=== PATIENT | male | born 1940 | race Caucasian/White ===

== ENCOUNTER 2017-10-08 07:05 | Inpatient (IN) | payer MEDICARE, SELFPAY ==
[2017-10-08] VITALS (15 sets, daily range): BP systolic 129–162; BP diastolic 60–74; PULSE 80–98; RESP 12–26; TEMP 36.7–37.8; O2SAT 88–94; BMI 23.3; BMI 23.4
--- NOTE | 2017-10-08 07:21 | RAD_ITS ---
STUDY: X-RAY CHEST REASON FOR EXAM: Male, 77 years old. Cough. History of pneumonia. TECHNIQUE: PA and lateral views of the chest. COMPARISON: None. FINDINGS: There is evidence of diffuse increased interstitial markings in both lungs with areas of confluence in the right upper lobe as well as in both lower lobes. There is blunting of the costophrenic angles posteriorly slightly more prominent on the left side. Normal size heart. Normal mediastinum and amee. Normal visualized pulmonary arteries. There is atherosclerotic tortuosity of the aortic arch and descending thoracic aorta. There is demineralization of the osseous structures. Normal visualized ribs, clavicles, and shoulders. There is no demonstrated abnormality of the visualized soft tissue structures of the upper abdomen. RAD/Chest PA and Lateral IMPRESSION: Diffuse increased interstitial markings with areas of confluence as described. This may represent chronic interstitial scarring with possible superimposed infiltrate in the right upper and right lower lobes. Follow-up is recommended. Electronically Signed: Pepe Bunn MD at 8:11 EDT Tel [phone], Service support ,
[2017-10-08] MEDS: Ipratropium/Albuterol Sulfate 3 ML AMPUL.NEB INHALATION ×4 (07:31→22:18)
[2017-10-08 07:55] LABS: Absolute Lymphocyte Count 0.95 X10^3/ul (0.83-4.51); Basophil# 0.01 X10^3/uL; Basophil% 0.1 % (0-1); Eosinophil# 0.11 X10^3/uL; Eosinophils% 0.7 % (0-5); Hematocrit 40.3 % (40-54); Hemoglobin 13.1 g/dl (13.0-16.5); Lymphocyte # 0.95 X10^3/ul (4.0); Lymphocyte % 6.3 % (19-41); Mean Corp Hgb Conc 32.5 g/gl (32-36); Mean Corpuscular Hgb 30.3 pg (27.0-32.0); Mean Corpuscular Volume 93.1 fL (80-94); Mean Platelet Vol. 10.2 fl (6.2-12.0); Monocyte# 0.83 X10^3/uL; Monocyte% 5.5 % (0-10); Neutrophil # 13.04 X10^3/uL (2.7-7.7); Neutrophil % 87.1 % (47-70); Platelet Count 325 K/mm3 (150-450); RBC Distribution Width CV 12.4 % (11.6-14.6); RBC Distribution Width SD 41.9 fl (35.1-43.9); Red Blood Count 4.33 M/mm3 (4.6-6.2)
[2017-10-08 08:01] LABS: POSITIVE COUNT NO; POSITIVE DIFFERENTIAL NO; POSITIVE MORPHOLOGY NO
[2017-10-08 08:09] LABS: Anion Gap 10 (5-15); BUN 11 mg/dL (7-18); BUN/Creat Ratio 15.9 RATIO (10-20); Calcium,Total 8.5 mg/dL (8.5-10.1); Chloride 107 mmol/L (98-107); Creatinine, Serum 0.69 mg/dL (0.70-1.30); EST Glomerular Filtration Rate 117 mL/min (>60); Est Glom Filt Rate - Afr Amer 142 mL/min (>60); Estimated Creatinine Clearance 54.94 ml/min; Glucose 107 mg/dL (74-106); Potassium 3.9 mmol/L (3.5-5.1); Sodium Level 140 mmol/L (136-145)
[2017-10-08 08:29] LABS: Lactic Acid 1.1 mmol/L (0.4-2.0)
--- NOTE | 2017-10-08 08:31 | ED.DCSUM_ITS ---
- ER Visit Summary Date of Service: 10/08/17 Chief Complaint: Cough History of Present Illness: The patient is a 77 M who does not have a primary care physician. He reports he has a cough that began 3 weeks ago. This is nonproductive. He reports he had a chest x-ray 3 days ago at urgent care that showed pneumonia and he was placed on doxycycline. Reports that he is not improving. Patient reports that he has had a temperature of 102? and chills. He has severe shortness of breath is worsened with walking. Is unchanged with laying flat. States that he has not been wheezing and has had minimal relief with an inhaler. He quit smoking in 1996. He has never been on home O2. Physical Examination: Vitals: 9 9.6, 162/74, 92, 17, 88% on room air which is hypoxic. General: Well-nourished and well-developed. Head: Normocephalic atraumatic. Neck: Supple, no lymphadenopathy. No JVD. Nontender. Cardiovascular: Regular rate and rhythm. No murmurs. Respiratory: No respiratory distress. Clear to auscultation bilaterally. Abdominal: Soft, nontender, nondistended, normal bowel sounds. No guarding, rebound, or peritoneal signs. Back: Nontender. Extremities: Nontender, no edema. Skin: Normal color, no rash. Neurologic: Alert and oriented ?3. Cranial nerves II through XII are intact. Normal strength and sensation. Psych: Normal affect. Test Results: Chest x-ray shows diffuse interstitial markings that are increased with areas of confluence. Question the possibility of chronic interstitial scarring with possible superimposed right upper and lower lobe infiltrates. CBC is marked for a white count of 15. Chem-7 is more for creatinine 0.6 and glucose 107. Lactic acid is 1.1. Emergency Department Course and Treatment: Patient was treated with albuterol and Atrovent aerosols to see if this helped with aeration and his pulse ox. It did not. He was given a dose of Solu-Medrol and Levaquin IV. Treatment Plan: Patient will be discussed with the hospitalist and admitted for further evaluation and treatment. Disposition: Admitted in improved condition. Impression: Pneumonia, community-acquired. 2. Hypoxia. This note was generated with [employer] software. It may contain incorrect words, spelling, and punctuation that were not noted in review of the chart prior to signing ED Disposition - Plan for ED Patient: Chief Complaint: Shortness of Breath Referrals: Care Physician,No Primary [Primary Care Provider] -
[2017-10-08] MEDS: levoFLOXacin IV 750 MG/150 ML BAG 100 MG IV (09:14)
[2017-10-08] MEDS: Heparin Injection 5,000 UNITS/ML Syringe 5000 UNITS SC ×2 (14:50→21:30)
[2017-10-08] MEDS: 0.9% NaCl Peripheral Flush Adult/Peds IV ×2 (14:50→21:29)
--- NOTE | 2017-10-08 16:58 | CT_ITS ---
STUDY: CTA CHEST REASON FOR EXAM: Male, 77 years old. Cough. Short of breath. RADIATION DOSAGE (If Supplied By Facility): CTDIvol = ( 8.66 ) mGy, DLP = ( 233.45 ) mGycm TECHNIQUE: The examination was performed with the intravenous administration of 75ml ml of Isovue 370 contrast material. Post-processing of the angiographic images was performed, with multiplanar reformation and 3D reconstruction. Individualized dose optimization techniques were used for this CT. COMPARISON: None. FINDINGS: Normal enhancement of the main pulmonary artery and right and left pulmonary arteries. Normal enhancement of the bilateral peripheral pulmonary arteries. There is no demonstrated pulmonary embolism. Normal thoracic aorta and visualized great vessels. There is no demonstrated aortic dissection. Normal heart and pericardium. Normal mediastinum. Normal hilar regions. Normal visualized trachea and bronchi. The lungs are well expanded. There is COPD. There are moderately increased diffuse interstitial parenchymal markings. Findings most prominent in the upper lobes and consistent with fibrosis. There are scattered areas of subsegmental atelectasis and more prominent atelectasis in both lower lobes. There are bilateral small pleural effusions. Normal pleura. Normal chest wall structures. Normal osseous structures. Normal visualized upper abdomen. CT/CTA Chest W/WO Contrast IMPRESSION: Normal CTA chest examination, without a demonstrated pulmonary embolism or arterial dissection. COPD with fibrosis, small pleural effusions and atelectasis in both lower lobes. Electronically Signed: Shahram Patel MD at 22:21 EDT , Service support ,
--- NOTE | 2017-10-08 20:34 | PCM.HP.STD ---
Problem List (1) Pneumonia Status: Acute Qualifiers: Pneumonia type: due to unspecified organism Laterality: bilateral History of Present Illness Date of Admission: 10/08/17 Chief Complaint: Fever, cough. Patient is a 77 years old female who was admitted on 10/08/17 for fever and persisting cough for 3 weeks. He had fever on and off for past 3 weeks as well. Cough is mostly dry with minimal sputum production. He has no previous history of lung disease. He is a former smoker, but had quit smoking in 1996, after about 30 pack-year of history. His father had COPD, but no other family member had any issues. He denied of any chest pain, has mild dyspnea, no night sweats or chills, and no change in appetite or weight loss. He denied of any peripheral edema, and has no symptoms of orthopnea. He has no other medical problems, taking no medications. Past Medical History Allergies No Known Allergies Allergy (Verified 10/08/17 07:06) Home Medications: Ambulatory Orders Medication Instructions Recorded Albuterol IH (ProAir) [Proair Hfa] 2 puff INHALATION Q6H PRN PRN 10/08/17 Doxycycline Hyclate [Doxycycline 100 mg PO BID 10/08/17 Hyclate] Surgical History: no surgical history Smoking Status: Former smoker Tobacco Use: Cigarettes - Quit smoking in 1996. - *Family History Paternal History Items: COPD - Father. Review of Systems Comment: ROS: In general: Patient has been in good health until recently, denied of any constitutional symptoms, such as weight loss, or gain, fever, chills, or night sweats. Patient denied of any profound fatigue. HEENT: Unremarkable. Patient denied of any dizziness, chronic headache, blurred vision, double vision, dry mouth, or nasal congestion. CV/respiratory: See HPI. He has no peripheral edema, hemoptysis, palpitations, dizziness, or chest pain. GI: Patient denied any abdominal pain, nausea, vomiting, diarrhea, constipation, melena, or hematochezia. : Patient denied any significant urinary symptoms. Neurology: Unremarkable. There is no history of seizure as an adult. Psychological: Unremarkable. ?. Endocrine: Unremarkable. Musculoskeletal: Unremarkable. VTE Information - Inpt Only VTE Present on Admission: No VTE Mechan Device Prophylaxis: Knee High ANEL Hose VTE Pharm Prophylaxis ordered?: Yes Patient Problems: Active and Suspected Problems Pneumonia (Acute) Subjective: In general, patient is a well-nourished and developed adult. HEENT: Head is atraumatic, and normocephalic. Pupils are equal, round, and reactive to light and accommodations. Neck is supple. There is no lymphadenopathy, or thyromegaly. Oral mucosa is pink, and moist. There are no lesions. Heart: Auscultation is normal with regular rhythm and rate. There is no extra heart sounds, or murmurs. S1 and S2 are present. Point of maximal impulse is not displaced. Lungs: Diffuse crackles at mid to lower lung juan bilaterally. Diminished breath sounds in general. Abdomen: Abdominal wall is non-tender, and non-distended. There is no palpable mass or organomegaly. Normoactive bowel sounds are present. Extremities: There is no cyanosis or clubbing. Peripheral pulses are palpable. There is no edema. Skin: There are no any skin discoloration or lesions. Neurological: CN II - XII are intact. Sensory and motor functions are grossly normal with no obvious deficit. Cerebellar functions are within normal range. Gait was not tested. - Physical Exam Vital Signs Temp Pulse Resp BP Pulse Ox 99.1 F 80 12 137/69 H 92 10/08/17 14:40 10/08/17 19:38 10/08/17 19:38 10/08/17 14:40 10/08/17 14:52 Oxygen Flow Rate (L/min) 4 Oxygen Delivery Method Nasal Cannula Weight: 144 lb 15.968 oz Body Mass Index (BMI) 23.3 Laboratory Results - last 24 hr 10/08/17 10/08/17 10/08/17 07:44 07:44 07:44 WBC 15.0 H RBC 4.33 L Hgb 13.1 Hct 40.3 MCV 93.1 MCH 30.3 MCHC 32.5 RDW 12.4 RDW Differential 41.9 Plt Count 325 MPV 10.2 Immature Gran % (Auto) 0.300 Neut % (Auto) 87.1 H Lymph % (Auto) 6.3 L [place] % (Auto) 5.5 Eos % (Auto) 0.7 Baso % (Auto) 0.1 Absolute Neuts (auto) 13.0 H Absolute Lymphs (auto) 0.95 Total Counted Not Reportable Sodium 140 Potassium 3.9 Chloride 107 Carbon Dioxide 23.0 Anion Gap 10 BUN 11 Creatinine 0.69 L Estim Creat Clear Calc 54.94 Est GFR (MDRD) Af Amer 142 Est GFR (MDRD) Non-Af 117 BUN/Creatinine Ratio 15.9 Glucose 107 H Lactic Acid 1.1 Calcium 8.5 Diagnostic Data Chest X-Ray 10/08/17 07:21 IMPRESSION: Diffuse increased interstitial markings with areas of confluence as described. This may represent chronic interstitial scarring with possible superimposed infiltrate in the right upper and right lower lobes. Follow-up is recommended. Electronically Signed: Pepe Bunn MD at 8:11 EDT Tel [phone], Service support , Assessment/Plan Active and Suspected Problems Pneumonia (Acute) Patient is a 77 years old female who was admitted on 10/08/17 for fever and persisting cough for 3 weeks. He had fever on and off for past 3 weeks as well. Cough is mostly dry with minimal sputum production. He has no previous history of lung disease. He is a former smoker, but had quit smoking in 1996, after about 30 pack-year of history. His father had COPD, but no other family member had any issues. He denied of any chest pain, has mild dyspnea, no night sweats or chills, and no change in appetite or weight loss. He denied of any peripheral edema, and has no symptoms of orthopnea. He has no other medical problems, taking no medications. #1 Bilateral pneumonia. He has persisting cough and fever for about 3 weeks, which is concerning. WBC is 15 and CXR showed bilateral diffuse infiltrate but appears more on right side. Levaquin was started empirically. Continue. Bronchodilator: DuoNeb. Continue Solu-Medrol 40 mg IV Q8H. 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 Check CT with/without contrast. Continue bronchodilator and oxygen prn. VTE prophylaxis: Heparin. GI prophylaxis: H2 shelli po. Patient is full code. Disposition: home in 2 to 3 days. Code Visit Inpatient E&M: [id number] [facility] Hosp L3
--- NOTE | 2017-10-08 20:39 | HP.PCM_ITS ---
Problem List (1) Pneumonia Status: Acute Qualifiers: Pneumonia type: due to unspecified organism Laterality: bilateral History of Present Illness Date of Admission: 10/08/17 Chief Complaint: Fever, cough. Patient is a 77 years old female who was admitted on 10/08/17 for fever and persisting cough for 3 weeks. He had fever on and off for past 3 weeks as well. Cough is mostly dry with minimal sputum production. He has no previous history of lung disease. He is a former smoker, but had quit smoking in 1996, after about 30 pack-year of history. His father had COPD, but no other family member had any issues. He denied of any chest pain, has mild dyspnea, no night sweats or chills, and no change in appetite or weight loss. He denied of any peripheral edema, and has no symptoms of orthopnea. He has no other medical problems, taking no medications. Past Medical History Allergies No Known Allergies Allergy (Verified 10/08/17 07:06) Home Medications: Ambulatory Orders Medication Instructions Recorded Albuterol IH (ProAir) [Proair Hfa] 2 puff INHALATION Q6H PRN PRN 10/08/17 Doxycycline Hyclate [Doxycycline 100 mg PO BID 10/08/17 Hyclate] Surgical History: no surgical history Smoking Status: Former smoker Tobacco Use: Cigarettes - Quit smoking in 1996. - *Family History Paternal History Items: COPD - Father. Review of Systems Comment: ROS: In general: Patient has been in good health until recently, denied of any constitutional symptoms, such as weight loss, or gain, fever, chills, or night sweats. Patient denied of any profound fatigue. HEENT: Unremarkable. Patient denied of any dizziness, chronic headache, blurred vision , double vision, dry mouth, or nasal congestion. CV/respiratory: See HPI. He has no peripheral edema, hemoptysis, palpitations, dizziness, or chest pain. GI : Patient denied any abdominal pain, nausea, vomiting, diarrhea, constipation, melena, or hematochezia. : Patient denied any significant urinary symptoms. Neurology: Unremarkable. There is no history of seizure as an adult. Psychological: Unremarkable. ?. Endocrine: Unremarkable. Musculoskeletal: Unremarkable. VTE Information - Inpt Only VTE Present on Admission: No VTE Mechan Device Prophylaxis: Knee High ANEL Hose VTE Pharm Prophylaxis ordered?: Yes Patient Problems: Active and Suspected Problems Pneumonia (Acute) Subjective: In general, patient is a well-nourished and developed adult. HEENT: Head is atraumatic, and normocephalic. Pupils are equal, round, and reactive to light and accommodations. Neck is supple. There is no lymphadenopathy, or thyromegaly. Oral mucosa is pink, and moist. There are no lesions. Heart: Auscultation is normal with regular rhythm and rate. There is no extra heart sounds, or murmurs. S1 and S2 are present. Point of maximal impulse is not displaced. Lungs: Diffuse crackles at mid to lower lung juan bilaterally. Diminished breath sounds in general. Abdomen: Abdominal wall is non-tender, and non-distended. There is no palpable mass or organomegaly. Normoactive bowel sounds are present. Extremities: There is no cyanosis or clubbing. Peripheral pulses are palpable. There is no edema. Skin: There are no any skin discoloration or lesions. Neurological: CN II - XII are intact. Sensory and motor functions are grossly normal with no obvious deficit. Cerebellar functions are within normal range. Gait was not tested. - Physical Exam Vital Signs Temp Pulse Resp BP Pulse Ox 99.1 F 80 12 137/69 H 92 10/08/17 14:40 10/08/17 19:38 10/08/17 19:38 10/08/17 14:40 10/08/17 14:52 Oxygen Flow Rate (L/min) 4 Oxygen Delivery Method Nasal Cannula Weight: 144 lb 15.968 oz Body Mass Index (BMI) 23.3 Laboratory Results - last 24 hr 10/08/17 10/08/17 10/08/17 07:44 07:44 07:44 WBC 15.0 H RBC 4.33 L Hgb 13.1 Hct 40.3 MCV 93.1 MCH 30.3 MCHC 32.5 RDW 12.4 RDW Differential 41.9 Plt Count 325 MPV 10.2 Immature Gran % (Auto) 0.300 Neut % (Auto) 87.1 H Lymph % (Auto) 6.3 L [place] % (Auto) 5.5 Eos % (Auto) 0.7 Baso % (Auto) 0.1 Absolute Neuts (auto) 13.0 H Absolute Lymphs (auto) 0.95 Total Counted Not Reportable Sodium 140 Potassium 3.9 Chloride 107 Carbon Dioxide 23.0 Anion Gap 10 BUN 11 Creatinine 0.69 L Estim Creat Clear Calc 54.94 Est GFR (MDRD) Af Amer 142 Est GFR (MDRD) Non-Af 117 BUN/Creatinine Ratio 15.9 Glucose 107 H Lactic Acid 1.1 Calcium 8.5 Diagnostic Data Chest X-Ray 10/08/17 07:21 IMPRESSION: Diffuse increased interstitial markings with areas of confluence as described. This may represent chronic interstitial scarring with possible superimposed infiltrate in the right upper and right lower lobes. Follow-up is recommended. Electronically Signed: Pepe Bunn MD at 8:11 EDT Tel [phone], Service support , Assessment/Plan Active and Suspected Problems Pneumonia (Acute) Patient is a 77 years old female who was admitted on 10/08/17 for fever and persisting cough for 3 weeks. He had fever on and off for past 3 weeks as well. Cough is mostly dry with minimal sputum production. He has no previous history of lung disease. He is a former smoker, but had quit smoking in 1996, after about 30 pack-year of history. His father had COPD, but no other family member had any issues. He denied of any chest pain, has mild dyspnea, no night sweats or chills, and no change in appetite or weight loss. He denied of any peripheral edema, and has no symptoms of orthopnea. He has no other medical problems, taking no medications. #1 Bilateral pneumonia. He has persisting cough and fever for about 3 weeks, which is concerning. WBC is 15 and CXR showed bilateral diffuse infiltrate but appears more on right side. Levaquin was started empirically. Continue. Bronchodilator: DuoNeb. Continue Solu-Medrol 40 mg IV Q8H. 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 Check CT with/without contrast. Continue bronchodilator and oxygen prn. VTE prophylaxis: Heparin. GI prophylaxis: H2 shelli po. Patient is full code. Disposition: home in 2 to 3 days. Code Visit Inpatient E&M: [id number] [facility] Hosp L3
[2017-10-08] MEDS: Famotidine 20 MG Tablet PO (21:30)
[2017-10-09] VITALS (17 sets, daily range): BP systolic 128–138; BP diastolic 55–86; PULSE 60–110; RESP 16–20; TEMP 36.6–37.2; O2SAT 93–97
[2017-10-09] MEDS: Ipratropium/Albuterol Sulfate 3 ML AMPUL.NEB INHALATION ×6 (04:08→23:35)
[2017-10-09] MEDS: 0.9% NaCl Peripheral Flush Adult/Peds IV ×3 (05:41→13:03)
[2017-10-09] MEDS: Heparin Injection 5,000 UNITS/ML Syringe 5000 UNITS SC ×3 (05:42→20:12)
[2017-10-09 08:36] LABS: Absolute Lymphocyte Count 1.08 X10^3/ul (0.83-4.51); Absolute Neutrophil Count 15.1 X10^3/uL (2.0-7.7); Hematocrit 39.2 % (40-54); Hemoglobin 12.8 g/dl (13.0-16.5); Lymphocyte # 1.08 X10^3/ul (4.0); Lymphocyte % 6.6 % (19-41); Mean Corp Hgb Conc 32.7 g/gl (32-36); Mean Corpuscular Hgb 30.2 pg (27.0-32.0); Mean Corpuscular Volume 92.5 fL (80-94); Mean Platelet Vol. 10.1 fl (6.2-12.0); Monocyte# 0.19 X10^3/uL; Monocyte% 1.2 % (0-10); Neutrophil # 15.12 X10^3/uL (2.7-7.7); Platelet Count 339 K/mm3 (150-450); RBC Distribution Width CV 12.5 % (11.6-14.6); RBC Distribution Width SD 42.3 fl (35.1-43.9); Red Blood Count 4.24 M/mm3 (4.6-6.2); White Blood Count 16.4 K/mm3 (4.4-11.0)
[2017-10-09 08:37] LABS: POSITIVE COUNT NO; POSITIVE DIFFERENTIAL NO; POSITIVE MORPHOLOGY NO
[2017-10-09 08:50] LABS: Anion Gap 8 (5-15); BUN 11 mg/dL (7-18); BUN/Creat Ratio 16.8 RATIO (10-20); Calcium,Total 8.7 mg/dL (8.5-10.1); Chloride 109 mmol/L (98-107); Creatinine, Serum 0.66 mg/dL (0.70-1.30); EST Glomerular Filtration Rate 125 mL/min (>60); Est Glom Filt Rate - Afr Amer 151 mL/min (>60); Estimated Creatinine Clearance 54.94 ml/min; Glucose 207 mg/dL (74-106); Potassium 3.7 mmol/L (3.5-5.1); Sodium Level 141 mmol/L (136-145)
[2017-10-09] MEDS: levoFLOXacin IV 750 MG/150 ML BAG 100 MG IV (09:07)
[2017-10-09] MEDS: Famotidine 20 MG Tablet PO ×2 (09:07→20:12)
--- NOTE | 2017-10-09 12:14 | CASEMGMT ---
CHART REVIEW: DANNA Strata: 2 ADM Dx: Pneumonia NINILCHIK: Patient presented to [facility] ED, 10/08/17, for fever and persisting cough for 3 weeks. Patient found to have bilateral pneumonia, worse on right. Patient is being treated with IV abx, bronchodilator, and steroids. Transition Planning/Care Coordination: DOROTHEA MOODY notes patient does not have a PCP. DOROTHEA MOODY provided patient with list of area providers and instructed to make an appnt on Wednesday to establish with provider of choice. The patient is independent, works full-time, and is . On arrival to the ED, the patient was sating 88% on room air and has continued to require supplemental oxygen throughout stay. If patient requires home oxygen, patient has [employer] Medicare, and can use DME provider of choice. RN CM will continue to follow hospital course and will arrange oxygen as needed. Anticipate no other home-going needs. Disposition Plan: Home; Needs to be determined by hospital course.
--- NOTE | 2017-10-09 12:59 | PCM.PROGNOTE ---
Patient Problems: Active and Suspected Problems Pneumonia (Acute) Subjective: He feels better, but has generalized weakness still. He has mild shortness of breath with casual activities. - Physical Exam General: Alert, Oriented x3, Cooperative, Well developed, Well nourished HEENT: Atraumatic, PERRLA, EOMI, Normocephalic Oral: Moist Mucosa, No Gingival or Mucosal Lesions/ Ulcerations Neck: Supple, No JVD, Negative Carotid Bruits Lungs: Diminished, - - Dry crackles at mid to lower lung juan bilaterally. Cardiovascular: Regular rate, Regular Rhythm, Normal S1, Normal S2, No murmurs, No Ectopic Activity Abdomen: Bowel Sounds Present, Soft, Non Tender, Non-Distended, No Hepato-splenomegaly Extremities: No clubbing, No cyanosis, No edema Skin: No rashes, No breakdown Musculoskeletal: No Tenderness to Palpation of Joints or Extremities, No Muscle Wasting Lymphatic: No Cervical, Supraclavicular, or Inguinal Adenopathy Neurological: Cranial nerves II-XII grossly intact, Neuro grossly intact Psych/Mental Status: Normal Affect Vital Signs Temp Pulse Resp BP Pulse Ox 98.9 F 60 18 133/55 H 94 10/09/17 09:06 10/09/17 11:00 10/09/17 11:00 10/09/17 09:06 10/09/17 09:06 Oxygen Flow Rate (L/min) 2 Oxygen Delivery Method Nasal Cannula Weight: 144 lb 15.968 oz Body Mass Index (BMI) 23.3 Intake and Output for Last 24 Hours 10/07/17 10/08/17 10/09/17 23:59 23:59 23:59 Intake Total 323 / 323 Balance 323 / 323 Microbiology Past 72 Hours 10/09/17 11:00 Influenza Types A,B Direct FA (ELAINE) - Final Mucosa - Nasopharyngeal Laboratory Tests Past 24 Hrs 10/09/17 10/09/17 10/09/17 08:24 08:24 08:24 WBC 16.4 H RBC 4.24 L Hgb 12.8 L Hct 39.2 L MCV 92.5 MCH 30.2 MCHC 32.7 RDW 12.5 RDW Differential 42.3 Plt Count 339 MPV 10.1 Immature Gran % (Auto) 0.200 Neut % (Auto) 92.0 H Lymph % (Auto) 6.6 L [place] % (Auto) 1.2 Eos % (Auto) 0.0 Baso % (Auto) 0.0 Absolute Neuts (auto) 15.1 H Absolute Lymphs (auto) 1.08 Total Counted Not Reportable Sodium 141 Potassium 3.7 Chloride 109 H Carbon Dioxide 24.0 Anion Gap 8 BUN 11 Creatinine 0.66 L Estim Creat Clear Calc 54.94 Est GFR (MDRD) Af Amer 151 Est GFR (MDRD) Non-Af 125 BUN/Creatinine Ratio 16.8 Glucose 207 H Calcium 8.7 Mycoplasma pneumon IgG Pending Diagnostic Data Chest X-Ray 10/08/17 07:21 IMPRESSION: Diffuse increased interstitial markings with areas of confluence as described. This may represent chronic interstitial scarring with possible superimposed infiltrate in the right upper and right lower lobes. Follow-up is recommended. Electronically Signed: Pepe Bunn MD at 8:11 EDT Tel [phone], Service support , Chest CTA 10/08/17 16:58 IMPRESSION: Normal CTA chest examination, without a demonstrated pulmonary embolism or arterial dissection. COPD with fibrosis, small pleural effusions and atelectasis in both lower lobes. Electronically Signed: Shahram Patel MD at 22:21 EDT , Service support , Medical Necessity - Tobacco Use Smoking Status: Former smoker Tobacco Use: Cigarettes - Quit smoking in 1996. Assessment/Plan Active and Suspected Problems Pneumonia (Acute) Patient is a 77 years old female who was admitted on 10/08/17 for fever and persisting cough for 3 weeks. He had fever on and off for past 3 weeks as well. Cough is mostly dry with minimal sputum production. He has no previous history of lung disease. He is a former smoker, but had quit smoking in 1996, after about 30 pack-year of history. His father had COPD, but no other family member had any issues. He denied of any chest pain, has mild dyspnea, no night sweats or chills, and no change in appetite or weight loss. He denied of any peripheral edema, and has no symptoms of orthopnea. He has no other medical problems, taking no medications. #1 Bilateral pneumonia. He has persisting cough and fever for about 3 weeks, which is concerning. WBC is 15 and CXR showed bilateral diffuse infiltrate but appears more on right side. Levaquin was started empirically. Continue. Bronchodilator: DuoNeb. He was feeling better on the following day, however, c/o generalized weakness. CT findings reviewed with patient and his . 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 CT was done, showing COPD change and fibrosis. 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 He has h/o smoking, quit 1996, with approximately 30 pack-year. Continue bronchodilator and oxygen prn. Change Solu Medrol to prednisone po. Add ICS+LABA inhaler at the time of discharge. Home oxygen evaluation prior to discharge. He needs PFT as outpatient. He would benefit from pulmonary consult as outpatient. VTE prophylaxis: Heparin. GI prophylaxis: H2 shelli po. Patient is full code. Disposition: home in 2 to 3 days. Code Visit Inpatient E&M: [id number] [facility] Hosp L3
--- NOTE | 2017-10-09 13:09 | CASEMGMT ---
HOME OXYGEN: Per Dr. Baker, patient may be ready for discharge tomorrow and may require home oxygen. DOROTHEA MOODY met with patient to discuss patient choice. Patient would like to use [employer] for home oxygen if needed. DOROTHEA MOODY placed Green Sheet on chart with instructions for nursing staff to arrange home oxygen if needed tomorrow, 10/10/17. CRYSTAL OwensN, RN-BC, CCM
--- NOTE | 2017-10-09 13:17 | PN_ITS ---
Patient Problems: Active and Suspected Problems Pneumonia (Acute) Subjective: He feels better, but has generalized weakness still. He has mild shortness of breath with casual activities. - Physical Exam General: Alert, Oriented x3, Cooperative, Well developed, Well nourished HEENT: Atraumatic, PERRLA, EOMI, Normocephalic Oral: Moist Mucosa, No Gingival or Mucosal Lesions/ Ulcerations Neck: Supple, No JVD, Negative Carotid Bruits Lungs: Diminished, - - Dry crackles at mid to lower lung juan bilaterally. Cardiovascular: Regular rate, Regular Rhythm, Normal S1, Normal S2, No murmurs, No Ectopic Activity Abdomen: Bowel Sounds Present, Soft, Non Tender, Non-Distended, No Hepato- splenomegaly Extremities: No clubbing, No cyanosis, No edema Skin: No rashes, No breakdown Musculoskeletal: No Tenderness to Palpation of Joints or Extremities, No Muscle Wasting Lymphatic: No Cervical, Supraclavicular, or Inguinal Adenopathy Neurological: Cranial nerves II-XII grossly intact, Neuro grossly intact Psych/Mental Status: Normal Affect Vital Signs Temp Pulse Resp BP Pulse Ox 98.9 F 60 18 133/55 H 94 10/09/17 09:06 10/09/17 11:00 10/09/17 11:00 10/09/17 09:06 10/09/17 09:06 Oxygen Flow Rate (L/min) 2 Oxygen Delivery Method Nasal Cannula Weight: 144 lb 15.968 oz Body Mass Index (BMI) 23.3 Intake and Output for Last 24 Hours 10/07/17 10/08/17 10/09/17 23:59 23:59 23:59 Intake Total 323 / 323 Balance 323 / 323 Microbiology Past 72 Hours 10/09/17 11:00 Influenza Types A,B Direct FA (ELAINE) - Final Mucosa - Nasopharyngeal Laboratory Tests Past 24 Hrs 10/09/17 10/09/17 10/09/17 08:24 08:24 08:24 WBC 16.4 H RBC 4.24 L Hgb 12.8 L Hct 39.2 L MCV 92.5 MCH 30.2 MCHC 32.7 RDW 12.5 RDW Differential 42.3 Plt Count 339 MPV 10.1 Immature Gran % (Auto) 0.200 Neut % (Auto) 92.0 H Lymph % (Auto) 6.6 L Snyder % (Auto) 1.2 Eos % (Auto) 0.0 Baso % (Auto) 0.0 Absolute Neuts (auto) 15.1 H Absolute Lymphs (auto) 1.08 Total Counted Not Reportable Sodium 141 Potassium 3.7 Chloride 109 H Carbon Dioxide 24.0 Anion Gap 8 BUN 11 Creatinine 0.66 L Estim Creat Clear Calc 54.94 Est GFR (MDRD) Af Amer 151 Est GFR (MDRD) Non-Af 125 BUN/Creatinine Ratio 16.8 Glucose 207 H Calcium 8.7 Mycoplasma pneumon IgG Pending Diagnostic Data Chest X-Ray 10/08/17 07:21 IMPRESSION: Diffuse increased interstitial markings with areas of confluence as described. This may represent chronic interstitial scarring with possible superimposed infiltrate in the right upper and right lower lobes. Follow-up is recommended. Electronically Signed: Pepe Bunn MD at 8:11 EDT Tel [phone], Service support , Chest CTA 10/08/17 16:58 IMPRESSION: Normal CTA chest examination, without a demonstrated pulmonary embolism or arterial dissection. COPD with fibrosis, small pleural effusions and atelectasis in both lower lobes. Electronically Signed: Shahram Patel MD at 22:21 EDT , Service support , Medical Necessity - Tobacco Use Smoking Status: Former smoker Tobacco Use: Cigarettes - Quit smoking in 1996. Assessment/Plan Active and Suspected Problems Pneumonia (Acute) Patient is a 77 years old female who was admitted on 10/08/17 for fever and persisting cough for 3 weeks. He had fever on and off for past 3 weeks as well. Cough is mostly dry with minimal sputum production. He has no previous history of lung disease. He is a former smoker, but had quit smoking in 1996, after about 30 pack-year of history. His father had COPD, but no other family member had any issues. He denied of any chest pain, has mild dyspnea, no night sweats or chills, and no change in appetite or weight loss. He denied of any peripheral edema, and has no symptoms of orthopnea. He has no other medical problems, taking no medications. #1 Bilateral pneumonia. He has persisting cough and fever for about 3 weeks, which is concerning. WBC is 15 and CXR showed bilateral diffuse infiltrate but appears more on right side. Levaquin was started empirically. Continue. Bronchodilator: DuoNeb. He was feeling better on the following day, however, c/o generalized weakness. CT findings reviewed with patient and his . 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 CT was done, showing COPD change and fibrosis. 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 He has h/o smoking, quit 1996, with approximately 30 pack-year. Continue bronchodilator and oxygen prn. Change Solu Medrol to prednisone po. Add ICS+LABA inhaler at the time of discharge. Home oxygen evaluation prior to discharge. He needs PFT as outpatient. He would benefit from pulmonary consult as outpatient. VTE prophylaxis: Heparin. GI prophylaxis: H2 shelli po. Patient is full code. Disposition: home in 2 to 3 days. Code Visit Inpatient E&M: 88144 Subs Hosp L3
[2017-10-10] VITALS (9 sets, daily range): BP systolic 119–122; BP diastolic 65–72; PULSE 72–107; RESP 16–18; TEMP 36.6–36.7; O2SAT 92–98
[2017-10-10] MEDS: Ipratropium/Albuterol Sulfate 3 ML AMPUL.NEB INHALATION ×3 (03:17→10:49)
[2017-10-10] MEDS: Heparin Injection 5,000 UNITS/ML Syringe 5000 UNITS SC (06:29)
[2017-10-10 06:30] LABS: Hematocrit 35.1 % (40-54); Hemoglobin 11.6 g/dl (13.0-16.5); Mean Corpuscular Hgb 31.3 pg (27.0-32.0); Mean Corpuscular Volume 94.6 fL (80-94); Mean Platelet Vol. 10.8 fl (6.2-12.0); Platelet Count 347 K/mm3 (150-450); RBC Distribution Width CV 12.5 % (11.6-14.6); RBC Distribution Width SD 41.7 fl (35.1-43.9); Red Blood Count 3.71 M/mm3 (4.6-6.2); White Blood Count 23.4 K/mm3 (4.4-11.0)
[2017-10-10 06:36] LABS: Scan Indicated on CBC? Y/N NO
[2017-10-10 06:52] LABS: Anion Gap 7 (5-15); BUN 18 mg/dL (7-18); BUN/Creat Ratio 28.9 RATIO (10-20); Calcium,Total 8.7 mg/dL (8.5-10.1); Chloride 110 mmol/L (98-107); Creatinine, Serum 0.62 mg/dL (0.70-1.30); EST Glomerular Filtration Rate 133 mL/min (>60); Est Glom Filt Rate - Afr Amer 161 mL/min (>60); Estimated Creatinine Clearance 54.94 ml/min; Glucose 140 mg/dL (74-106); Potassium 4.2 mmol/L (3.5-5.1); Sodium Level 142 mmol/L (136-145)
[2017-10-10] MEDS: Famotidine 20 MG Tablet PO (07:57)
[2017-10-10] MEDS: predniSONE 20 MG Tablet 40 MG PO (08:03)
[2017-10-10] MEDS: 0.9% NaCl Peripheral Flush Adult/Peds IV (10:03)
[2017-10-10] MEDS: levoFLOXacin IV 750 MG/150 ML BAG 100 MG IV (10:03)
--- NOTE | 2017-10-10 11:52 | NURSING ---
AMB PULSE CHECK- PT ON RA AT REST WAS 95% AND AMBULATED AROUND ENTIRE UNIT APPROX 300YARDS AND SPO2 NEVER BELOW 92% ON RA. MILD SOB ONLY WITH EXERTION. PT EXCITED OVER NOT NEEDING OXYGEN NOW WHEN GOES HOME
--- NOTE | 2017-10-10 12:36 | PCM.DC ---
- Discharge Diagnoses Current Active Problems: Current Active and Chronic Problems Pneumonia (Acute) You will use the following diet at home:: Regular Discharge Activity: No Restrictions Return to work on:: 10/18/17 Additional Instructions: Patient needs pulmonary function test as outpatient in near future. Allergies/Adverse Reactions: Allergies No Known Allergies Allergy (Verified 10/08/17 07:06) Medications to take at Discharge Albuterol IH (ProAir) [Proair Hfa] 2 puff INHALATION Q6H PRN PRN 10/08/17 Budesonide/Formoterol 160/4.5 [Symbicort 160/4.5 Mcg Inhaler (SP)] 2 puff INHALATION BID #1 inhaler 10/10/17 Prednisone 10 mg PO DAILY #21 tab 10/10/17 levoFLOXacin tablet [Levaquin tablet] 750 mg PO DAILY #4 tab 10/10/17 The following prescriptions were given: levoFLOXacin tablet [Levaquin tablet] 750 mg PO DAILY #4 tab Prednisone 10 mg PO DAILY #21 tab Budesonide/Formoterol 160/4.5 [Symbicort 160/4.5 Mcg Inhaler (SP)] 2 puff INHALATION BID #1 inhaler Primary Care Physician: Care Physician,No Primary [Primary Care Provider] - Please follow up with your Primary Care Physician in: Please set up follow with primary care provider. Need
--- NOTE | 2017-10-10 12:38 | PCM.DC.SUM ---
Discharge Date and Diagnosis - Problem List Patient Problems: Active and Suspected Problems Pulmonary fibrosis (Acute) Date of Admission: 10/08/17 Date of Discharge: 10/10/17 - Primary Discharge Diagnosis Active and Suspected Problems Pneumonia (Acute) - Secondary Discharge Diagnosis COPD and pulmonary fibrosis per CT findings. Hospital Course and Treatment Imaging Results: Diagnostic Data Chest X-Ray 10/08/17 07:21 IMPRESSION: Diffuse increased interstitial markings with areas of confluence as described. This may represent chronic interstitial scarring with possible superimposed infiltrate in the right upper and right lower lobes. Follow-up is recommended. Electronically Signed: Pepe Bunn MD at 8:11 EDT Tel [phone], Service support , Chest CTA 10/08/17 16:58 IMPRESSION: Normal CTA chest examination, without a demonstrated pulmonary embolism or arterial dissection. COPD with fibrosis, small pleural effusions and atelectasis in both lower lobes. Electronically Signed: Shahram Patel MD at 22:21 EDT , Service support , None. Operations: None Procedures: None Summary of Care Provided: Patient is a 77 years old female who was admitted on 10/08/17 for fever and persisting cough for 3 weeks. He had fever on and off for past 3 weeks as well. Cough is mostly dry with minimal sputum production. He has no previous history of lung disease. He is a former smoker, but had quit smoking in 1996, after about 30 pack-year of history. His father had COPD, but no other family member had any issues. He denied of any chest pain, has mild dyspnea, no night sweats or chills, and no change in appetite or weight loss. He denied of any peripheral edema, and has no symptoms of orthopnea. He has no other medical problems, taking no medications. #1 Bilateral pneumonia. He has persisting cough and fever for about 3 weeks, which is concerning. WBC is 15 and CXR showed bilateral diffuse infiltrate but appears more on right side. Levaquin was started empirically. Continue. Bronchodilator: DuoNeb. He was feeling better on the following day, however, c/o generalized weakness. CT findings reviewed with patient and his , showing COPD change and pulmonary fibrosis. He will need PFT as outpatient. Oxygen eval with ambulation showed Osat >90% persistently. Discharge him with Levaquin 750 mg po qd for 4 more days, Prednisone tapering dose, Symbicort 160/4.5 mcg 2 puffs bid, and Albuterol MDI prn. He has no PCP at this time. Provider list for PCP given. 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 CT was done, showing COPD change and fibrosis. 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 He has h/o smoking, quit 1996, with approximately 30 pack-year. Continue bronchodilator and oxygen prn. Change Solu Medrol to prednisone po. Add ICS+LABA inhaler at the time of discharge. Home oxygen evaluation prior to discharge. He needs PFT as outpatient. He would benefit from pulmonary consult as outpatient. VTE prophylaxis: Heparin. Patient is full code. Disposition: home Discharge Diet: No Restrictions Discharge Activity: No Restrictions Return to work on:: 10/18/17 Home Medications: Medications to take at Discharge Albuterol IH (ProAir) [Proair Hfa] 2 puff INHALATION Q6H PRN PRN 10/08/17 Budesonide/Formoterol 160/4.5 [Symbicort 160/4.5 Mcg Inhaler (SP)] 2 puff INHALATION BID #1 inhaler 10/10/17 Prednisone 10 mg PO DAILY #21 tab 10/10/17 levoFLOXacin tablet [Levaquin tablet] 750 mg PO DAILY #4 tab 10/10/17 Following Prescrptions Were Given to Patient: levoFLOXacin tablet [Levaquin tablet] 750 mg PO DAILY #4 tab Prednisone 10 mg PO DAILY #21 tab Budesonide/Formoterol 160/4.5 [Symbicort 160/4.5 Mcg Inhaler (SP)] 2 puff INHALATION BID #1 inhaler Primary Care Physician: Care Physician,No Primary [Primary Care Provider] - Please follow up with your Primary Care Physician in: Please set up follow with primary care provider. Need Disposition: Home Patient Condition:: Good Medical Necessity - Tobacco Use Smoking Status: Former smoker Tobacco Use: Cigarettes - Quit smoking in 1996. Meaningful Use Info Meaningful Use Diagnoses (Choose all that apply): None applicable Code Visit Inpatient E&M: 66995 Disch Hosp
--- NOTE | 2017-10-10 12:44 | DS.PCM_ITS ---
Discharge Date and Diagnosis - Problem List Patient Problems: Active and Suspected Problems Pulmonary fibrosis (Acute) Date of Admission: 10/08/17 Date of Discharge: 10/10/17 - Primary Discharge Diagnosis Active and Suspected Problems Pneumonia (Acute) - Secondary Discharge Diagnosis COPD and pulmonary fibrosis per CT findings. Hospital Course and Treatment Imaging Results: Diagnostic Data Chest X-Ray 10/08/17 07:21 IMPRESSION: Diffuse increased interstitial markings with areas of confluence as described. This may represent chronic interstitial scarring with possible superimposed infiltrate in the right upper and right lower lobes. Follow-up is recommended. Electronically Signed: Pepe Bunn MD at 8:11 EDT Tel [phone], Service support , Chest CTA 10/08/17 16:58 IMPRESSION: Normal CTA chest examination, without a demonstrated pulmonary embolism or arterial dissection. COPD with fibrosis, small pleural effusions and atelectasis in both lower lobes. Electronically Signed: Shahram Patel MD at 22:21 EDT , Service support , None. Operations: None Procedures: None Summary of Care Provided: Patient is a 77 years old female who was admitted on 10/08/17 for fever and persisting cough for 3 weeks. He had fever on and off for past 3 weeks as well. Cough is mostly dry with minimal sputum production. He has no previous history of lung disease. He is a former smoker, but had quit smoking in 1996, after about 30 pack-year of history. His father had COPD, but no other family member had any issues. He denied of any chest pain, has mild dyspnea, no night sweats or chills, and no change in appetite or weight loss. He denied of any peripheral edema, and has no symptoms of orthopnea. He has no other medical problems, taking no medications. #1 Bilateral pneumonia. He has persisting cough and fever for about 3 weeks, which is concerning. WBC is 15 and CXR showed bilateral diffuse infiltrate but appears more on right side. Levaquin was started empirically. Continue. Bronchodilator: DuoNeb. He was feeling better on the following day, however, c/o generalized weakness. CT findings reviewed with patient and his , showing COPD change and pulmonary fibrosis. He will need PFT as outpatient. Oxygen eval with ambulation showed Osat >90% persistently. Discharge him with Levaquin 750 mg po qd for 4 more days, Prednisone tapering dose, Symbicort 160/4.5 mcg 2 puffs bid, and Albuterol MDI prn. He has no PCP at this time. Provider list for PCP given. 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 CT was done, showing COPD change and fibrosis. 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 He has h/o smoking, quit 1996, with approximately 30 pack-year. Continue bronchodilator and oxygen prn. Change Solu Medrol to prednisone po. Add ICS+LABA inhaler at the time of discharge. Home oxygen evaluation prior to discharge. He needs PFT as outpatient. He would benefit from pulmonary consult as outpatient. VTE prophylaxis: Heparin. Patient is full code. Disposition: home Discharge Diet: No Restrictions Discharge Activity: No Restrictions Return to work on:: 10/18/17 Home Medications: Medications to take at Discharge Albuterol IH (ProAir) [Proair Hfa] 2 puff INHALATION Q6H PRN PRN 10/08/17 Budesonide/Formoterol 160/4.5 [Symbicort 160/4.5 Mcg Inhaler (SP)] 2 puff INHALATION BID #1 inhaler 10/10/17 Prednisone 10 mg PO DAILY #21 tab 10/10/17 levoFLOXacin tablet [Levaquin tablet] 750 mg PO DAILY #4 tab 10/10/17 Following Prescrptions Were Given to Patient: levoFLOXacin tablet [Levaquin tablet] 750 mg PO DAILY #4 tab Prednisone 10 mg PO DAILY #21 tab Budesonide/Formoterol 160/4.5 [Symbicort 160/4.5 Mcg Inhaler (SP)] 2 puff INHALATION BID #1 inhaler Primary Care Physician: Care Physician,No Primary [Primary Care Provider] - Please follow up with your Primary Care Physician in: Please set up follow with primary care provider. Need Disposition: Home Patient Condition:: Good Medical Necessity - Tobacco Use Smoking Status: Former smoker Tobacco Use: Cigarettes - Quit smoking in 1996. Meaningful Use Info Meaningful Use Diagnoses (Choose all that apply): None applicable Code Visit Inpatient E&M: 68933 Disch Hosp
[2017-10-13 11:56] LABS: Mycoplasma Pneum AB IgG 153 U/mL (0-99)
== END 2017-10-10 13:39 | disposition home or self-care (01) | DRG 194 ==
LOC: ED 07:51 → MS3 10:27
PROVIDERS: Admitting Provider Hospitalist; Emergency Provider Emergency Medicine; Visit Provider Hospitalist
DX: J18.9 Pneumonia, unspecified organism (principal); J44.0 Chronic obstructive pulmonary disease with (acute) lower respiratory infection; J44.1 Chronic obstructive pulmonary disease with (acute) exacerbation; Z87.891 Personal history of nicotine dependence; J84.10 Pulmonary fibrosis, unspecified; Z79.51 Long term (current) use of inhaled steroids; Z79.899 Other long term (current) drug therapy
CPT/HCPCS: 36415; 71046; 71275; 80048; 83605; 85025; 85027; 86738; 87040; 87449; 87633; 87804; 94640; 94664; 97161; 99283; J7030; J7040; Q9967; A4216

== ENCOUNTER 2017-10-28 15:25 | Emergency (ER) | payer MEDICARE, SELFPAY ==
[2017-10-28 15:25] VITALS: BP 129/52; PULSE 88; RESP 16; TEMP 37.2; O2SAT 93; BMI 23.3
--- NOTE | 2017-10-28 15:40 | EKG12_ITS ---
Test Reason : Blood Pressure : / mmHG Vent. Rate : 077 BPM Atrial Rate : 077 BPM P-R Int : 156 ms QRS Dur : 078 ms QT Int : 360 ms P-R-T Axes : 018 017 043 degrees QTc Int : 407 ms Sinus rhythm with Premature atrial complexes Otherwise normal ECG Confirmed by KULDIP SANTANA, RADHA ([id number]), desk editor CASTRO HUBER ([id number]) on 11/01/2017 1:55:27 PM Referred By: KATE Confirmed By:RADHA CHRISTIANSEN MD
--- NOTE | 2017-10-28 15:40 | RAD_ITS ---
STUDY: X-RAY CHEST REASON FOR EXAM: Male, 77 years old. Chest pain TECHNIQUE: Frontal and lateral views of the chest COMPARISON: 10/08/2017 FINDINGS: There are mildly increased interstitial markings throughout the lungs which are decreased when compared with the prior exam. There are no focal infiltrates. There are no pleural effusions. There is no pneumothorax. The heart is normal in size. The visualized osseous structures are within normal limits. RAD/Chest PA and Lateral IMPRESSION: Bilaterally increased interstitial markings throughout the lungs which are decreased when compared with the prior exam. Electronically Signed: Doug Holman, at 16:29 EDT Tel , Service support ,
--- NOTE | 2017-10-28 15:49 | ED.DCSUM_ITS ---
- ER Visit Summary Date of Service: 10/28/17 Chief Complaint: Cough History of Present Illness: The patient is a 77 M presents with cough ?3 weeks. Patient was admitted to the hospital in September for pneumonia. He finished a course of antibiotics and steroids 2 weeks ago. He is concerned because he has a persistent cough and subjective fever. He denies chest pain or shortness of breath. He states 2 days ago he was able to walk three quarters of a mile without any difficulty. Family is concerned due to generalized weakness. He had an appointment with his primary care physician Dr. Spaulding today but he slept through it. He is now unable to get in until next week. He does not wear home O2. He has a history of COPD, pulmonary fibrosis. He is not a smoker. Denies other complaints. Physical Examination: Vitals are stable. Temperature 99. 93% on room air. Alert no acute distress. HEENT exam is unremarkable. Neck is supple. Lungs are diminished bilaterally. Heart is regular rate and rhythm. Abdomen is soft nontender nondistended. Extremities are unremarkable. Skin is warm and dry. No focal neurologic deficit. Remainder of exam is unremarkable. Emergency Department Course and Treatment: EKG is sinus rate of 77 with no acute ischemic changes. Chest x-ray shows bilaterally increased interstitial markings throughout the lungs which are decreased when compared with the prior exam. CBC shows a white count of 15.8 which is improved from previous. Chemistries are unremarkable. Troponin is negative. Lactic acid is normal. He was given IV fluids. He is able to ambulate in the ED with a pulse ox of 91 % on room air. D-dimer is elevated at 2.10. CTA chest shows no evidence of pulmonary embolus. No evidence of thoracic aortic aneurysm or dissection. Persistent but slightly decreased groundglass opacity throughout both lungs. Repeat troponin is negative. Discussed with Dr. Armas. He will see the patient in the office for close outpatient follow-up. Patient is given a prescription for prednisone. He is advised to followup with Dr. Armas. Advised return to ED for worsening complaints. Disposition: Discharge home Impression: COPD exacerbation This note was generated with [employer] dictation software. It may contain incorrect words, spelling, and punctuation that were not noted in review of the chart prior to signing ED Disposition - Plan for ED Patient: Disposition: Home or Assisted Living Chief Complaint: Cough Instructions: ED COPD Flare Prescriptions: Prednisone 30 mg PO DAILY #15 tablet Referrals: Praneeth Spaulding MD [Primary Care Provider] - Noam Armas MD [STAFF PHYSICIAN] -
[2017-10-28 16:04] LABS: Absolute Lymphocyte Count 1.81 X10^3/ul (0.83-4.51); Absolute Neutrophil Count 13.2 X10^3/uL (2.0-7.7); Basophil# 0.02 X10^3/uL; Basophil% 0.1 % (0-1); Eosinophil# 0.13 X10^3/uL; Eosinophils% 0.8 % (0-5); Hematocrit 38.2 % (40-54); Hemoglobin 12.6 g/dl (13.0-16.5); Lymphocyte # 1.81 X10^3/ul (4.0); Lymphocyte % 11.4 % (19-41); Mean Corpuscular Hgb 30.6 pg (27.0-32.0); Mean Corpuscular Volume 92.7 fL (80-94); Mean Platelet Vol. 10.1 fl (6.2-12.0); Monocyte# 0.66 X10^3/uL; Monocyte% 4.2 % (0-10); Neutrophil # 13.18 X10^3/uL (2.7-7.7); Neutrophil % 83.3 % (47-70); Platelet Count 199 K/mm3 (150-450); RBC Distribution Width CV 13.3 % (11.6-14.6); RBC Distribution Width SD 44.6 fl (35.1-43.9); Red Blood Count 4.12 M/mm3 (4.6-6.2); White Blood Count 15.8 K/mm3 (4.4-11.0)
[2017-10-28 16:05] LABS: POSITIVE COUNT NO; POSITIVE DIFFERENTIAL NO; POSITIVE MORPHOLOGY NO
[2017-10-28 16:08] VITALS: O2SAT 93
[2017-10-28 16:34] LABS: ALB/GLOB Ratio 0.9 RATIO (0.9-2.4); AST(SGOT) 9 U/L (15-37); Alanine Aminotransfer ALT/SGPT 16 U/L (16-61); Albumin, Serum 3.1 g/dL (3.2-5.0); Alkaline Phosphatase 50 U/L (45-117); Anion Gap 6 (5-15); BUN 11 mg/dL (7-18); Calcium,Total 8.8 mg/dL (8.5-10.1); Chloride 106 mmol/L (98-107); Creatinine, Serum 0.79 mg/dL (0.70-1.30); EST Glomerular Filtration Rate 101 mL/min (>60); Est Glom Filt Rate - Afr Amer 122 mL/min (>60); Estimated Creatinine Clearance 54.94 ml/min; Globulin 3.6 g/dL (2.2-4.2); Glucose 106 mg/dL (74-106); Potassium 3.9 mmol/L (3.5-5.1); Protein, Total 6.7 g/dL (6.4-8.2); Sodium Level 139 mmol/L (136-145)
--- NOTE | 2017-10-28 16:45 | CT_ITS ---
STUDY: CTA CHEST REASON FOR EXAM: Male, 77 years old. Cough RADIATION DOSAGE (If Supplied By Facility): CTDIvol = ( 11.32 ) mGy, DLP = ( 314.69 ) mGycm TECHNIQUE: The examination was performed with the intravenous administration of 75 ml of Isovue 370 contrast material. Post-processing of the angiographic images was performed, with multiplanar reformation and 3D reconstruction. Individualized dose optimization techniques were used for this CT. COMPARISON: 10/08/2017 FINDINGS: There are persistent but slightly decreased groundglass opacities noted throughout both lungs. There are no focal infiltrates. There are no pleural effusions.. Previously seen pleural effusions have resolved. There is no pneumothorax. There are no filling defects within the pulmonary arteries to suggest pulmonary embolus. There is no evidence of thoracic aortic aneurysm or dissection. The heart is normal in size. There are coronary artery calcifications noted. There is stable mediastinal lymphadenopathy. CT/CTA Chest W/WO Contrast IMPRESSION: No evidence of pulmonary embolus. No evidence of thoracic aortic aneurysm or dissection. Persistent but slightly decreased groundglass opacity throughout both lungs. This is consistent with an infectious or inflammatory etiology. Stable mediastinal lymphadenopathy. Coronary artery disease. Electronically Signed: Doug Holman, at 17:35 EDT Tel , Service support ,
[2017-10-28 17:01] LABS: Bacteria 0 SEEN /hpf (None Seen); Mucous, Urine 0 SEEN /hpf (<or=2+); Red Blood Cells-Urine 0 SEEN /hpf (0-5)
[2017-10-28 17:16] LABS: Color, Urine Yellow (Yellow); Glucose, Dipstick Normal (Normal); Ketone-Dipstick Negative (Negative); Leukocyte Esterase-Dipstick 25 /ul (Negative); Nitrite-Dipstick Negative (Negative); Occult Blood-Urine Negative /ul (Negative); Protein-Dipstick Negative (Negative); Urine Bilirubin Dipstick Negative (Negative); Urine Clarity Sl. Cloudy (Clear); Urine Urobilinogen 1 mg/dl (Normal)
[2017-10-28 17:30] LABS: Squamous Epithelial Cells - UA 0-5 SEEN /hpf (0-5); White Blood Cells 0-5 SEEN /hpf (0-5)
[2017-10-28 17:44] VITALS: BP 141/70; PULSE 89; RESP 23; O2SAT 92
[2017-10-28 18:53] VITALS: BP 132/70; PULSE 73; RESP 20; O2SAT 93
--- NOTE | 2017-10-28 19:31 | ED.DEP ---
ED Disposition - Plan for ED Patient: Chief Complaint: Cough Instructions: ED COPD Flare Prescriptions: Prednisone [Deltasone] 20 mg PO DAILY #5 tablet Referrals: Praneeth Spaulding MD [Primary Care Provider] - Noam Armas MD [STAFF PHYSICIAN] -
--- NOTE | 2017-10-28 20:47 | ED.DEP ---
ED Disposition - Plan for ED Patient: Chief Complaint: Cough Instructions: ED COPD Flare Prescriptions: Prednisone 30 mg PO DAILY #15 tablet Referrals: Praneeth Spaulding MD [Primary Care Provider] - Noam Armas MD [STAFF PHYSICIAN] -
[2017-10-28] MEDS: predniSONE 20 MG Tablet 30 MG PO (21:04)
[2017-10-28 21:06] VITALS: BP 153/73; PULSE 82; RESP 16; O2SAT 95
--- NOTE | 2017-10-29 13:45 | CM.ED ---
ED CALLBACK: Follow-up call placed to patient. Voicemail received. I left my contact information and offered assistance and call with questions/concerns.
== END 2017-10-28 21:07 | disposition home or self-care (01) ==
PROVIDERS: Emergency Provider Emergency Medicine; Family Provider Family Medicine; PCP Family Medicine
DX: J44.1 Chronic obstructive pulmonary disease with (acute) exacerbation (principal); J84.10 Pulmonary fibrosis, unspecified; Z79.51 Long term (current) use of inhaled steroids
CPT/HCPCS: 71046; 71275; 80053; 81001; 83605; 84484; 85025; 85379; 87804; 93005; 96360; 99285; J7030; J7040; Q9967; A4216

== ENCOUNTER → 2018-02-07 10:02 | Outpatient (CLI) | payer MEDICARE, SELFPAY | PROVIDERS: Family Provider Family Medicine; PCP Family Medicine; Visit Provider Surgery | DX: R10.9 Unspecified abdominal pain (principal) | CPT/HCPCS: 76705 ==

== ENCOUNTER 2018-02-22 06:08 | Day surgery (SDC) | payer MEDICARE, SELFPAY ==
--- NOTE | 2018-02-22 | IMM_PTH ---
PATIENT: HONEY RIDDLE LOC: EN U#:[id number] AGE/SX: 77/M ROOM: RE02/22/[address]: Dr. Noam Kaye MD : [id number] BED: DIS: 02/22/2018 SPEC #: [id number] RECD: 02/23/18 10:33 STATUS: SARA IJM #: [id number] ALBERTO: 02/22/18 00:[address]: Noam Kaye DEPT: IMMUNOHISTOCHEMISTRY RECD BY: Doris Choi ENTERED: 02/23/18 10:33 SP TYPE: IMMUNO OTHR DR: Dr. Praneeth Spaulding MD Tissues: A - Stomach, NOS Procedures: H Pylori (initial) PHYSICIAN & INSTITUTION [place] [address] SPECIMEN INFORMATION: Tissue Source: A ? Antrum biopsy Clinical Info: Epigastric pain Specimen Number: [id number] CPT code: 65872 METHODOLOGY: Deparaffinized sections of prefer/formalin-fixed tissue or PAP/DQ stained slides are incubated with monoclonal/polyclonal antibodies/oligonucleotide probes. Localization is made via biotin free immunoperoxidase method. Appropriate controls are performed and reacted as expected. Results on target cell population are indicated in the following table: RESULTS: ANTIBODY / CLONE RESULT Block A H Pylori (polyclonal) negative These tests were developed and their performance characteristics determined by [facility]. They may not have been cleared or approved by the U.S. Food and Drug Administration. The FDA has determined that such clearance or approval is not necessary. INTERPRETATION: A. Antrum, biopsy: Negative for Helicobacter pylori organisms. AM:[place] 02/24/18
[2018-02-22 06:50] VITALS: BP 129/72; PULSE 73; RESP 16; TEMP 36.4; O2SAT 96; BMI 22.9
--- NOTE | 2018-02-22 07:15 | EGD_PTH ---
PATIENT: HONEY RIDDLE LOC: EN U#:[id number] AGE/SX: 77/M ROOM: RE02/22/[address]: Dr. Noam Kaye MD : 1940 BED: DIS: 02/22/2018 SPEC #: [id number] RECD: 02/22/18 08:34 STATUS: SARA JIM #: [id number] ALBERTO: 02/22/18 07:[address]: Noam Kaye DEPT: SURGICAL PATHOLOGY RECD BY: Walt Cedillo ENTERED: 02/22/18 12:25 SP TYPE: EGD BIOPSY MAGDA DR: Dr. Praneeth Spaulding MD Tissues: A - Gastric mucous membrane B - Gastric mucous membrane C - Esophageal mucous membrane Procedures: Surgery Specimen Level IV HEADER OPERATION: Colonoscopy, EGD ([facility] [place] PRE-OP DIAGNOSIS: Epigastric pain TISSUE SUBMITTED: A ? Antrum biopsy for H. pylori and path, B ? Fundus biopsy, C ? Distal esophagus biopsy MICROSCOPIC DIAGNOSIS A. Gastric antrum, biopsy: Mild chronic inflammation. B. Gastric fundus, biopsy: Changes consistent with fundic gland polyp. Mild chronic inflammation. C. Distal esophagus, biopsy: Fragment of benign squamous mucosa. AM:[place] 02/23/18 COMMENT A. The results of immunohistochemistry for Helicobacter pylori will be reported separately ([id number]). MICROSCOPIC DESCRIPTION Slides are reviewed. GROSS DESCRIPTION A - Received in fixative is one container labeled with the patient's name and designated antrum biopsy. The specimen consists of one irregular fragment of light silva soft tissue that measures 0.5 x 0.3 x 0.1 cm. The specimen is totally submitted in one cassette. B - Received in fixative is one container labeled with the patient's name and designated fundus biopsy. The specimen consists of one irregular fragment of light silva soft tissue that measures 0.7 x 0.2 x 0.1 cm. The specimen is totally submitted in one cassette. C - Received in fixative is one container labeled with the patient's name and designated distal esophagus biopsy. The specimen consists of one irregular fragment of light silva soft tissue that measures 0.6 x 0.3 x 0.1 cm. The specimen is totally submitted in one cassette. / AM:[place] 02/22/18 TC:3 CPT: 18412 x3
--- NOTE | 2018-02-22 07:38 | PCM.OPRPT ---
Problem List (1) Abdominal pain Status: Acute Qualifiers: (2) Screening for intestinal cancer Status: Acute Report of Operation Date of Procedure: 02/22/18 Pre-Operative Diagnosis: Epigastric abdominal pain,. Screening for intestinal cancer Post-Operative Diagnosis: Small hiatal hernia, minimal erythema of the antrum, mild mucosa irregularity of the fundus. Pancolonic diverticulosis Surgery/Procedure Performed:: Esophagogastroduodenoscopy with cold forcep biopsies. Colonoscopy Description of Surgical Findings:: Timeout informed consent was obtained. 69-year-old gent was taken endoscopy suite. His oropharynx anesthetized with Cetacaine. This placed in left lateral decubitus position. He underwent monitored anesthesia care. Flexible gastroscope was inserted to self limit. Galvan without difficulty. EG junction was at 38 cm. Small hiatal hernia noted. No reflux changes. Scope was advanced in the stomach minimal antral erythema noted. The scope was advanced through the pylorus and the first second and third portions of the duodenum were inspected were not remarkable. The scope was withdrawn back into the stomach mild antral erythema noted. Biopsy was obtained. Scope was retroflexed small hiatal hernia noted. There is some mild mucosal abnormality irregularity of the fundus. Just appear to be consistent with chronic disease. Cold forcep biopsy was obtained. Scope was placed back in antegrade viewing position. The greater and lesser curvatures were inspected were not remarkable. Excess fluid nurse aspirated free. The scope was withdrawn to the distal esophagus. Very small hiatal hernia noted. Distal esophageal biopsy was obtained. Scope was withdrawn without additional abnormality. Digital rectal exam performed. Lax anal tone. 2+ smooth prostate without mass. Flexible colonoscope inserted the rectum advanced with very tortuous lax colon. Transabdominal pressure was required. The patient is to be placed supine. The scope was advanced to the cecum ileocecal valve. The appendix wanted to invert a bit but then resumed its normal position. The cecum otherwise was unremarkable. Bowel prep was adequate. Pancolonic diverticulosis was identified. The scope was carefully withdrawn from the ascending transverse descending and sigmoid colon with pancolonic diverticular disease noted throughout. There is no evidence any active process. The scope was retroflexed within the rectum. Anorectal verge inspected. Mild hemorrhoidal changes. Excess fluid and air was aspirated free the procedure was completed with patient tolerating it well. Impression Small hiatal hernia but without signs of reflux. Minimal erythema of the antrum. Biopsies are pending. No findings that would correlate with significant abdominal pain. The patient has never had a previous colonoscopy. Next screening colonoscopy recommended in 10 years. Diverticular disease noted throughout the colon. The patient is scheduled to have a future right inguinal herniorrhaphy performed in an open technique. A gallbladder ultrasound report of February 07, 2018 was normal. The upper scope started 0712. Was completed 0716. The colonoscopy started 0719. The cecum was reached at 0729. Procedure was completed at 0734. Cc: Dr. Praneeth Kaye M.D., F.A.C.S. Type of Anesthesia:: MAC
[2018-02-22 07:40] VITALS: BP 129/72; BP 98/54; PULSE 71; RESP 18; TEMP 36.6; O2SAT 96
[2018-02-22 07:45] VITALS: BP 102/55; BP 129/72; PULSE 67; RESP 18; O2SAT 97
[2018-02-22 07:50] VITALS: BP 111/68; BP 129/72; PULSE 66; RESP 16; O2SAT 97
[2018-02-22 07:57] VITALS: BP 110/66; BP 129/72; PULSE 62; RESP 18; TEMP 36.1; O2SAT 97
[2018-02-22 08:27] VITALS: BP 129/72
== END 2018-02-22 08:29 | disposition home or self-care (01) ==
LOC: EN 06:08 → AC 07:47
PROVIDERS: Family Provider Family Medicine; PCP Family Medicine; Visit Provider Surgery
PROC: 0DJD8ZZ Inspection of Lower Intestinal Tract, Via Natural or Artificial Opening Endoscopic (ICD-10-PCS; CPT 45378; principal; 2018-02-22 07:10)
DX: Z12.11 Encounter for screening for malignant neoplasm of colon (principal); K29.50 Unspecified chronic gastritis without bleeding; K44.9 Diaphragmatic hernia without obstruction or gangrene; K57.30 Diverticulosis of large intestine without perforation or abscess without bleeding; K40.90 Unilateral inguinal hernia, without obstruction or gangrene, not specified as recurrent; Z87.891 Personal history of nicotine dependence
CPT/HCPCS: 43239; 45378; 88305; 88342; J7120

== ENCOUNTER 2018-03-24 14:06 | Day surgery (SDC) | payer MEDICARE, SELFPAY ==
--- NOTE | 2018-03-18 15:08 | EKG12_ITS ---
Test Reason : PRE-OP Blood Pressure : / mmHG Vent. Rate : 062 BPM Atrial Rate : 062 BPM P-R Int : 164 ms QRS Dur : 086 ms QT Int : 386 ms P-R-T Axes : 034 015 027 degrees QTc Int : 391 ms Normal sinus rhythm Normal ECG Confirmed by KULDIP SANTANA, RADHA ([id number]), news videotape editor CASTRO HUBER ([id number]) on 03/23/2018 8:32:19 AM Referred By: Noam Kaye Confirmed By:RADHA CHRISTIANSEN MD
[2018-03-18 16:59] LABS: Hematocrit 39.1 % (40-54); Hemoglobin 13.5 g/dl (13.0-16.5); Mean Corp Hgb Conc 34.5 g/gl (32-36); Mean Corpuscular Hgb 32.1 pg (27.0-32.0); Mean Corpuscular Volume 93.1 fL (80-94); Mean Platelet Vol. 11.2 fl (6.2-12.0); Platelet Count 207 K/mm3 (150-450); RBC Distribution Width CV 12.8 % (11.6-14.6); RBC Distribution Width SD 42.4 fl (35.1-43.9); White Blood Count 6.2 K/mm3 (4.4-11.0)
[2018-03-18 17:00] LABS: Scan Indicated on CBC? Y/N NO
[2018-03-18 17:43] LABS: Anion Gap 11 (5-15); BUN 16 mg/dL (7-18); Calcium,Total 8.9 mg/dL (8.5-10.1); Chloride 109 mmol/L (98-107); EST Glomerular Filtration Rate 99 mL/min (>60); Est Glom Filt Rate - Afr Amer 120 mL/min (>60); Glucose 86 mg/dL (74-106); Sodium Level 144 mmol/L (136-145)
[2018-03-24] VITALS (9 sets, daily range): BP systolic 133–180; BP diastolic 67–75; PULSE 51–69; RESP 16; TEMP 36.3–36.9; O2SAT 97–99; BMI 23.8
--- NOTE | 2018-03-24 | HERN_PTH ---
PATIENT: HONEY RIDDLE LOC: [facility] [place] U#:[id number] AGE/SX: 77/M ROOM: RE03/24/[address]: Dr. Noam Kaye MD : 1940 BED: DIS: 03/24/2018 SPEC #: [id number] RECD: 03/25/18 13:12 STATUS: SARA JIM #: [id number] ALBERTO: 03/24/18 00:[address]: Noam Kaye DEPT: SURGICAL PATHOLOGY RECD BY: Afshin Rodriguez ENTERED: 03/25/18 13:12 SP TYPE: Hernia OTHR DR: Dr. Praneeth Spaulding MD Tissues: HERNIA Procedures: Surgery Specimen Level II HEADER OPERATION: Hernia, inguinal with mesh PRE-OP DIAGNOSIS: Right inguinal hernia TISSUE SUBMITTED: Hernia sac and contents MICROSCOPIC DIAGNOSIS Hernia sac and contents: Mesothelial-lined fibroadipose and fibroconnective tissue, consistent with hernia sac. SJ:[place] 03/28/18 MICROSCOPIC DESCRIPTION Slides are reviewed. GROSS DESCRIPTION Received in fixative is one container labeled with the patient's name and designated hernia sac and contents. The specimen consists of two variable sized pieces of silva soft tissue that in aggregate measure 6 x 2.5 x 0.8 cm. No mass lesion is identified. Mine Safety Engineer sections are submitted in one cassette. / SJ:[place] 03/25/18 TC:2 CPT: 40540
[2018-03-24] MEDS: Cefazolin 2 GM in 0.9% Normal Saline 100 ML IV (16:27)
--- NOTE | 2018-03-24 16:28 | PCM.DC.GS ---
Discharge Diet: Light diet - advance as tolerated - if you have questions about your diet instructions, please talk to you doctor. Discharge Activity: May Not Drive - for 1 week or while taking narcotic pain medicine. May shower in (days): 1 Lifting Restrictions: 10 pounds Call your doctor if your incision/area has: Continuous Slow Oozing, Sudden Increased Bleeding, Increased Pain/ Swelling, Increased Redness, Foul Smelling Discharge Call your doctor if you observe: Fever of 101 or Higher Suture Line Care: Avoid Pulling/Pushing, Avoid Pinching/Bending Additional Dressing/Incision Instructions:: Change or remove dressing in 4 days. Leave steri-strips in place for 1 week. Allergies/Adverse Reactions: Allergies No Known Allergies Allergy (Verified 03/23/18 09:21) Medications to take at Discharge Abdominal Truss #1 ea 02/22/18 Hydrocodone Bitart/Apap 5-325 [[place] 5MG-325MG] 1 tablet PO Q6H PRN PRN 3 Days #8 tablet 03/24/18 The following prescriptions were given: Hydrocodone Bitart/Apap 5-325 [[place] 5MG-325MG] 1 tablet PO Q6H PRN PRN 3 Days #8 tablet PRN Reason: Pain Primary Care Physician: Praneeth Spaulding MD [Primary Care Provider] - Test Results: Test results from this visit will be discussed in further detail at your follow-up appointment, if applicable. Please Follow Up With: Noam Kaye MD - [phone] When: Call to make an appointment to be seen in about 10 days.
[2018-03-24] MEDS: Bupivacaine Mpf 0.5% 30 ML VIAL (17:28)
--- NOTE | 2018-03-24 17:37 | OP.PCM_ITS ---
Problem List (1) Inguinal hernia Status: Acute Qualifiers: Obstruction and gangrene presence: without obstruction or gangrene Laterality: unilateral Recurrence: non-recurrent Qualified Code(s): K40.90 - Unilateral inguinal hernia, without obstruction or gangrene, not specified as recurrent Report of Operation Date of Procedure: 03/24/18 Pre-Operative Diagnosis: Symptomatic right inguinal hernia Post-Operative Diagnosis: Chronic symptomatic indirect right inguinal hernia Surgery/Procedure Performed:: Maurisio right inguinal herniorrhaphy Description of Surgical Findings:: Timeout informed consent was obtained. 77-year-old gentleman was taken to the operating room. He was placed supine on the table. He underwent general anesthesia at anesthesia's selection. Ancef 2 g given intravenously. The right groin was sterilely prepped and draped. 1% lidocaine mixed 50-50 with 0.5% Marcaine was used as a local anesthetic. A total of 16 cc was used. Local was instilled. A transverse incision was created. Electrocautery was used to make dissection down through the substance tissue. The external oblique was identified and was incised along with his tissues. Significant amount of fibrofatty tissue and hypertrophic cremasteric fibers was encountered. The re mainder of the dissection was reviewed. Tedious cremasteric fibers were opened. Hernia sac was identified. This was very large. I dissected free the cord structures. Hemostasis obtained with 3-0 Vicryl ligatures and electrocautery. Portion of cremasteric fibers were submitted. The sac was then twisted and high ligated with 2-like ligatures of 3-0 Vicryl. The sac was submitted as a specimen. Then the transversalis fascia was approximated to itself starting at the pubic tubercle running 3-0 Ethibond. A prone cover keyhole Marlex mesh was placed around the internal ring and secured to itself laterally with the 3-0 Ethibond. The tails were slightly shortened. The mesh was placed so as to cover the pubic tubercle area. Good positioning of the external oblique laterally was achieved. The mesh was meticulously secured in place with multiple interrupted 3-0 Ethibond sutures. Excellent coverage and positioning was achieved. With interrupted 3-0 Vicryl. Skin edges approximated with a running septic or 4-0 Monocryl. Steri-Strips Telfa and OpSite dressings applied. Sponge and instrument and needle counts were reported to the surgeon be correct. Blood loss was minimal. He tolerated the procedure well was taken to the recovery room in such condition without apparent complication. Specimens include hernia sac and contents. Drains none. Blood loss minimal Noam Kaye M.D., F.A.C.S.
== END 2018-03-24 20:08 | disposition home or self-care (01) ==
LOC: SDC 14:07 → AC 14:08
PROVIDERS: Family Provider Family Medicine; PCP Family Medicine; Visit Provider Surgery
PROC: (CPT 49505; principal; 2018-03-24 14:15)
DX: K40.90 Unilateral inguinal hernia, without obstruction or gangrene, not specified as recurrent (principal); J44.9 Chronic obstructive pulmonary disease, unspecified; J84.10 Pulmonary fibrosis, unspecified; K21.9 Gastro-esophageal reflux disease without esophagitis; Z87.891 Personal history of nicotine dependence
CPT/HCPCS: 00830; 49505; 36415; 80048; 85027; 88302; 93005; J7120; C1781

== ENCOUNTER → 2018-05-02 16:01 | Outpatient (CLI) | payer MEDICARE, SELFPAY ==
--- NOTE | 2018-05-02 16:04 | CT_ITS ---
STUDY: CT CHEST WITHOUT CONTRAST REASON FOR EXAM: Male, 77 years old. Follow-up pneumonia. RADIATION DOSAGE (If Supplied By Facility): CTDIvol = ( 8.41 ) mGy, DLP = ( 277.07 ) mGycm TECHNIQUE: Transaxial imaging was performed without the administration of intravenous contrast material. Multiplanar coronal and sagittal images were reformatted. Individualized dose optimization techniques were used for this CT. COMPARISON: CTA of the chest, October 28, 2017. FINDINGS: The lungs are well expanded. There is a 2 mm nodular density in the lateral right upper lobe best seen on image 44 of series 4. Other masses or infiltrates are seen. The diffuse groundglass infiltrates seen throughout both lungs on the previous examination are no longer present. There is no demonstrated pleural abnormality. Normal heart and pericardium. There are calcifications of the coronary arteries. There is no overall decrease in size of the mediastinal lymphadenopathy when compared to the prior study.. Normal hilar regions. Normal unenhanced pulmonary arteries. There is atherosclerotic calcification of the aortic arch with tortuosity and elongation of the aortic arch and descending thoracic aorta. Normal osseous structures. There is a calcification in the upper pole of the right kidney. The abdomen is otherwise unremarkable. CT/Chest without Contrast IMPRESSION: 1. Complete resolution of the diffuse groundglass infiltrates seen throughout both lungs on the prior study. 2. Tiny soft tissue nodule in the right upper lobe. 3. Decreased size of mediastinal lymph nodes when compared to the prior study. 4. Right renal calculus. Electronically Signed: Sekou King DO at 23:11 EST Tel [phone], Service support ,
== END ==
LOC: CT 16:02
PROVIDERS: Family Provider Family Medicine; PCP Family Medicine; Referring Provider Internal Medicine Pulmonary Disease; Visit Provider Internal Medicine Pulmonary Disease
DX: R91.1 Solitary pulmonary nodule (principal)
CPT/HCPCS: 71250

== ENCOUNTER 2019-09-07 13:36 | Emergency (ER) | payer BC, SELFPAY ==
[2019-09-07 13:38] VITALS: BP 142/76; PULSE 69; PULSE 75; RESP 12; RESP 17; TEMP 36.9; O2SAT 95; O2SAT 96; BMI 23.6
--- NOTE | 2019-09-07 14:30 | RAD_ITS ---
STUDY: X-RAY CHEST REASON FOR EXAM: Male, 79 years old. PATIENT REPORTS ELEVATED TEMP AT HOME AND DRY COUGH. RECENT TRAVEL TO [place] TECHNIQUE: PA and lateral views of the chest. COMPARISON: Comparison is made with prior examination of October 28, 2017. FINDINGS: EKG electrodes are seen. The lungs are clear and expanded. There is no demonstrated pleural abnormality. Normal size heart. Normal mediastinum and amee. Normal visualized pulmonary arteries. There is atherosclerotic calcification of the aortic arch with tortuosity. There is demineralization of the osseous structures. Normal visualized ribs, clavicles, and shoulders. There is no demonstrated abnormality of the visualized soft tissue structures of the upper abdomen. RAD/Chest PA and Lateral IMPRESSION: No acute abnormality is seen. Electronically Signed: Pepe Bunn, at 14:51 EDT , Service support ,
--- NOTE | 2019-09-07 14:31 | ED.DCSUM_ITS ---
History of Present Illness Chief Complaint: Fever Informant: Patient Onset: Days Context: Gradual Onset Timing: Continuous Current Severity: Mild Maximum Severity: Mild Narrative: The patient is an 79-year-old male with no significant medical history that presents to the emergency department with scant cough. The patient recently traveled on a cruise. They returned from the cruise on Wednesday. His was just hospitalized with metapneumovirus, ARDS, and ended up expiring in the hospital. 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 His casino operations supervisor wanted to do outpatient testing, but because of his symptoms he was sent in for further evaluation. He denies having a fever. He had a scant cough without productive sputum. He denies any chest pain. He has no history of immunosuppression. Prior similar symptoms: No Recent Illness/Hospitalization: No Past Medical History - Allergies and Home Meds Allergies/Adverse Reactions: Allergies No Known Allergies Allergy (Verified 09/07/19 13:37) Primary Care Physician: Praneeth Spaulding MD [Primary Care Provider] - Prior records reviewed: Yes Past Medical History: None Surgical History: no surgical history Smoking Status: Former smoker - Family History Paternal Family History: Family History (Last Reviewed 03/31/18 @ 14:00 by Virginie Laguna) Mother Myocardial infarction Brother Myocardial infarction Father Emphysema of lung Family History: Reports: COPD Review of Systems General: Denies: Chills, Fever, Sweats Eyes: Denies: Visual changes - bilaterally, Diplopia ENT: Denies: Rhinorrhea, Sore throat Cardiovascular: Denies: Chest pain, Palpitations Respiratory: Reports: Cough. Denies: Dyspnea, Dyspnea on exertion Gastrointestinal: Denies: Abdominal pain, Nausea, Vomiting, Diarrhea, Melena, Hematochezia Genitourinary: Denies: Dysuria, Hematuria, Frequency Musculoskeletal: Denies: Back pain, Extremity Pain Skin: Denies: Rash, Wounds Neurological: Denies: Headache, Weakness, Numbness Physical Exam Vital Signs/Narrative: Vital Signs Temp Pulse Resp BP Pulse Ox 09/07/19 13:38 98.4 F 75 12 142/76 H 96 Inital Vital Signs reviewed: Yes General: Well nourished, Well developed, No Acute Distress Head: Normocephalic, Atraumatic Eyes: Perrl, EOMI ENT: Moist mucous membranes, No rhinorrhea Neck: Supple, Nontender Cardiovascular: Regular rate, Regular rhythm, No murmurs Respiratory: No distress, CTA bilaterally, Chest nontender Abdomen: Soft, Nontender, Nondistended, Normal bowel sounds Back: Nontender, Normal Inspection Extremities: Nontender, No edema Skin: Normal color, No rash Neurological: Alert, Oriented x3, Cranial nerves II-XII grossly intact, Normal Strength, Normal Sensation Psychological: Normal affect, Normal Mood Diagnostic/Tx/Re-eval - Medical Decision Making Patient presents with scant cough and myalgias. He has not had a fever greater than 100. He is afebrile here. He has no hypoxia. Chest x-ray is obtained which shows no evidence of focal infiltrative process. Influenza screen and respiratory viral screen were obtained. The patient's was recently diagnosed with human metapneumovirus. At this point, based on CDC and [facility] guidelines, he does not meet criteria for COVID 19 testing. With his negative chest x-ray, lack of hypoxia, lack of systemic symptoms I do feel that he is safe for discharge and outpatient follow-up. The patient is comfortable with this plan of care. Impression 1. Cough with viral exposure ED Disposition - Plan for ED Patient: Instructions: URI, Viral, No Abx (Adult) Referrals: Praneeth Spaulding MD [Primary Care Provider] -
[2019-09-07 15:09] VITALS: BP 126/63; PULSE 68; RESP 17; O2SAT 96
--- NOTE | 2019-09-07 17:55 | ED.RN ---
called and left vm for pt to call er to discuss test results
== END 2019-09-07 15:14 | disposition home or self-care (01) ==
LOC: ED 14:11
PROVIDERS: Emergency Provider Emergency Medicine; PCP Family Medicine
DX: R05 Cough (principal); Z87.891 Personal history of nicotine dependence; Z20.828 Contact with and (suspected) exposure to other viral communicable diseases
CPT/HCPCS: 71046; 87633; 87804; 99282

== ENCOUNTER 2020-08-21 08:57 | Outpatient (RCR) | payer MEDICARE, SELFPAY | END 2020-08-21 23:59 | LOC: IMMUN 08:57 | PROVIDERS: PCP Family Medicine; Referring Provider Family Medicine; Visit Provider Family Medicine | DX: Z23 Encounter for immunization (principal) | CPT/HCPCS: 0011A; 0012A; 91301 ==

== ENCOUNTER 2021-09-08 06:30 | Emergency (ER) | payer MEDICARE, SELFPAY ==
[2021-09-08 06:32] VITALS: BP 160/86; PULSE 69; RESP 16; TEMP 36.6; O2SAT 97; BMI 27.4
--- NOTE | 2021-09-08 07:30 | EX.ED.GENINJ ---
HPI History of Present Illness Chief Complaint: Laceration Informant: patient Onset/Context/Timing Onset: Yesterday Mechanism/Context: Blunt Injury Quality of Pain: Dull Location: Forehead Worsened by: Nothing Relieved by: Nothing Associated Symptoms Associated Symptoms: Negative for Parasthesias, Weakness, Loss of function, Inability to ambulate, Loss of consciousness and Amnesia Narrative Narrative: Patient presents with a laceration to his forehead that occurred yesterday. 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 Patient denies any loss of consciousness. Patient states the bleeding stopped after a few minutes. Patient states he has a mild dull headache. Patient denies any paresthesias or weakness. Patient denies any other injuries. Patient is unsure of his last tetanus. Tetanus Immunization: Unknown [facility] Medical History Abdominal pain COPD (chronic obstructive pulmonary disease) History of inguinal hernia Pulmonary fibrosis Right inguinal hernia Home Medications NK 09/07/19 [History Last Taken Unknown] Allergy/AdvReac Type Severity Reaction Status Date / Time No Known Allergies Allergy Verified 09/07/19 13:37 Family History Mother Myocardial infarction Brother Myocardial infarction Father Emphysema of lung Surgical History History of right inguinal hernia repair (~03/24/18) History of tooth extraction Social History Smoking Status: Former smoker ROS ROS ED Constitutional Constitutional ED: Denies chills or fever(s) Eyes Eyes: Denies blurry vision or change in vision ENT ENT ED: Denies rhinorrhea or sore throat Cardiovascular Cardiovascular: Denies chest pain or palpitations Respiratory/Chest Respiratory/Chest: Denies cough or dyspnea Gastrointestinal Gastrointestinal: Denies nausea or vomiting Genitourinary Genitourinary ED: Denies dysuria or hematuria Musculoskeletal Musculoskeletal: Denies back pain or neck pain Integumentary Denies abscess or rash Neurologic Neurologic: Denies headache(s) or weakness Allergic/Immunologic Allergic/Immunologic ED: Denies mouth swelling or urticaria EXAM Physical Exam Const Vital Signs: 09/08/21 06:32 Temperature 97.9 F Temperature Source Oral Pulse Rate 69 Respiratory Rate 16 Blood Pressure 160/86 H Blood Pressure Mean 110 Pulse Ox 97 Oxygen Delivery Method Room Air Positive well nourished and well developed General Appearance ED: well developed and NAD HEENT HEENT Narrative: There is mild tenderness over the forehead. There is a 2 cm full-thickness linear laceration over the forehead. There is mild gapping of the wound margins. There is no active bleeding. There is no bony crepitance or step-off. Neck full ROM General: Negative for tenderness Neuro oriented x3, CN's II-XII intact bilaterally, moves all extremities, no focal motor deficits and no sensory deficits noted Sensorium / Orientation: alert Psych mental status grossly normal Skin Wounds: wounds noted size Size: To use centimeters, margins well approximated and No surrounding erythema MDM MDM MDM Narrative Medical decision making narrative: Patient was given a tetanus booster. The wound was too old to be closed with sutures. The wound was cleaned and closed with Steri-Strips. Patient was instructed to keep the wound clean and dry. Patient was instructed to follow-up with his primary care physician in 5 to 7 days. Patient was instructed return if worse in any way. Patient understood and was agreeable with the plan. All questions were answered. Discharge Plan Triage Chief Complaint: Laceration ED Provider: Clark Sosa Dx/Rx/DC Orders Clinical Impression: Forehead laceration Instructions: ED Laceration: All Closures Prescriptions: No Action NK RF: 0 Primary Care Provider: Praneeth Spaulding Referrals: Praneeth Spaulding MD [Primary Care Provider] - 5-7 Days Disposition Disposition: Home, Self Care
[2021-09-08] MEDS: Diphth,Pertuss(Acell),Tet Vac 0.5 ML Vial IM (08:49)
== END 2021-09-08 09:42 | disposition home or self-care (01) ==
PROVIDERS: Emergency Provider Emergency Medicine; PCP Family Medicine; Visit Provider Emergency Medicine
DX: S01.81XA Laceration without foreign body of other part of head, initial encounter (principal); Z87.891 Personal history of nicotine dependence; Z23 Encounter for immunization; X58.XXXA Exposure to other specified factors, initial encounter
CPT/HCPCS: 90715; 96372

== ENCOUNTER 2023-05-22 17:24 | Emergency (ER) | payer MEDICARE, SELFPAY ==
[2023-05-22 17:27] VITALS: BP 165/82; PULSE 95; RESP 18; TEMP 37.7; O2SAT 94; BMI 25.4
--- NOTE | 2023-05-22 17:42 | CT_ITS ---
EXAM: CT HEAD WITHOUT INTRAVENOUS CONTRAST CLINICAL INDICATION: head trauma TECHNIQUE: Multiple axial images were obtained of the head without intravenous contrast. This CT exam was performed using one or more of the following dose reduction techniques: automated exposure control, adjustment of the mA and/or kV according to patient size, and/or use of iterative reconstruction technique. COMPARISON: No relevant prior studies available. FINDINGS: BRAIN AND EXTRA-AXIAL SPACES: There is a calcific density along a table of the right frontal lobe which may represent a calcified meningioma. There is enlargement of the ventricular system and cortical sulci. There is hypoattenuation in the periventricular white matter. No intra- or extra-axial hemorrhage. No evidence of acute infarct. There is preservation of the slaughter/white matter interface. Posterior fossa structures are unremarkable. Basal cisterns are patent. BONES/JOINTS: Unremarkable. No discrete lytic or blastic abnormalities. SINUSES: Unremarkable as visualized. Clear. MASTOID AIR CELLS: Unremarkable. Clear. ORBITS: Visualized globes, extraocular muscles, optic nerves and retrobulbar fat appear unremarkable. CT/Brain/Head without Contrast IMPRESSION: 1. No acute intracranial abnormality. 2. Underlying senescent change with small vessel ischemia. 3. Calcified mass along the inner table of the left frontal lobe compatible with a calcified meningioma. Electronically Signed: Henry Kirby MD at 18:52 EST ,
--- NOTE | 2023-05-22 17:43 | EKG12_ITS ---
Test Reason : Blood Pressure : / mmHG Vent. Rate : 090 BPM Atrial Rate : 090 BPM P-R Int : 166 ms QRS Dur : 078 ms QT Int : 332 ms P-R-T Axes : 043 -01 011 degrees QTc Int : 406 ms Normal sinus rhythm Nonspecific ST abnormality Abnormal ECG Confirmed by KULDIP SANTANA, RADHA ([id number]), communications editor CHARISMA ABDI ([id number]) on 05/24/2023 12:11:43 PM Referred By: Confirmed By:RADHA CHRISTIANSEN MD
--- NOTE | 2023-05-22 17:46 | CT_ITS ---
EXAM: CT CERVICAL SPINE WITHOUT INTRAVENOUS CONTRAST CLINICAL INDICATION: trauma TECHNIQUE: Helically acquired images were obtained of the cervical spine without intravenous contrast. 2D reformatted images were reviewed. This CT exam was performed using one or more of the following dose reduction techniques: automated exposure control, adjustment of the mA and/or kV according to patient size, and/or use of iterative reconstruction technique. COMPARISON: No relevant prior studies available. FINDINGS: VERTEBRAE: See below. DISCS/SPINAL CANAL/NEURAL FORAMINA: There is disc space narrowing at C2-3, C3-4 and C4-5 as well as C6-7. There is facet hypertrophy with left bony neural foraminal narrowing at C4-5. SOFT TISSUES: Unremarkable. No prevertebral soft tissue swelling. LYMPH NODES: Unremarkable. No cervical adenopathy. LUNG APICES: Unremarkable as visualized. Clear. CT/Spine Cervical without Contras IMPRESSION: 1. No acute osseous abnormalities of the cervical spine. 2. Multilevel degenerative change with disc space narrowing and bony neural foraminal narrowing. Electronically Signed: Henry Kirby MD at 19:01 EST ,
--- NOTE | 2023-05-22 17:46 | EDS_ITS ---
HPI History of Present Illness Chief Complaint: General Illness Narrative Narrative: 82-year-old male presenting with generalized fatigue, weakness. Patient is a poor informant secondary to dementia. Family states that he has been unable to give any significant history. They note he is has a mild cough which is dry as well as sneezing more frequently. He is felt a little warm at home but they have not checked his temperature. Patient's family notes that one of their family numbers had croup recently and he was in contact with them. Patient has not had a known fever with a thermometer. He has been sleeping more today. He has decreased p.o. intake today. He states he is not nauseous or in pain other than a headache. Patient's family notes that they found him in the garage on . He had wandered out there and apparently fell. This was unwitnessed. Family believes he was unconscious because he was cold enough to have been out in the garage for a while. He states that his hands and his feet were cold. He has been acting normal at baseline since then however today has abrupt mental status change and a concern he has a bug. [facility] Medical History Abdominal pain COPD (chronic obstructive pulmonary disease) History of inguinal hernia Pulmonary fibrosis Right inguinal hernia Home Medications memantine 5 mg tablet 5 mg PO DAILY 05/22/23 [History Last Taken Unknown] nirmatrelvir 300 mg (150 mg x2)-ritonavir 100 mg tablet,dose pack (Paxlovid) See Rx Instructions PO .COMPLEX #30 tabs 05/22/23 [Rx Last Taken Unknown] ondansetron 4 mg disintegrating tablet 4 mg PO Q8H PRN PRN Nausea #14 tabs 05/22/23 [Rx Last Taken Unknown] Allergy/AdvReac Type Severity Reaction Status Date / Time No Known Allergies Allergy Verified 05/22/23 17:27 Family History Mother Myocardial infarction Brother Myocardial infarction Father Emphysema of lung Surgical History History of right inguinal hernia repair (~03/24/18) History of tooth extraction Social History Smoking Status: Former smoker ROS ROS ED Review of Systems ROS Unobtainable: due to mental condition Constitutional Constitutional ED: Denies fever(s) Eyes Eyes: Denies change in vision or diplopia ENT ENT ED: Denies rhinorrhea Cardiovascular Cardiovascular: Denies chest pain or palpitations Respiratory/Chest Respiratory/Chest: Reports cough; Denies dyspnea Gastrointestinal Gastrointestinal: Reports other Details: Decreased p.o. intake ; Denies abdominal pain Genitourinary Genitourinary ED: Denies dysuria or hematuria Musculoskeletal Musculoskeletal: Denies arthralgias, back pain or myalgias Integumentary Denies abscess Neurologic Neurologic: Reports headache(s); Denies paresthesias or weakness Psychiatric Psychiatric: Denies anxiety or depression EXAM Physical Exam Const Vital Signs: 05/22/23 17:27 05/22/23 17:41 05/22/23 18:09 Temperature 99.9 F H 99.8 F H Temperature Source Temporal Oral Pulse Rate 95 Respiratory Rate 18 Respiratory Effort Normal Non-Labored Respiratory Pattern Normal Blood Pressure 165/82 H Blood Pressure Mean 109 Pulse Ox 94 Oxygen Delivery Method Room Air Oxygen Flow Rate (L/min) 05/22/23 18:53 05/22/23 18:53 Temperature Temperature Source Pulse Rate 96 Respiratory Rate 18 Respiratory Effort Respiratory Pattern Blood Pressure 142/73 H Blood Pressure Mean 96 Pulse Ox 89 94 Oxygen Delivery Method Room Air Nasal Cannula Oxygen Flow Rate (L/min) 2 Positive well nourished General Appearance ED: NAD; Negative for pallor HEENT Reports moist mucous membranes Eyes PERRL and EOMs intact bilaterally Resp normal respiratory effort Auscultation: Negative for rales, rhonchi or wheezes Cardio regular rate and regular rhythm GI normal to inspection, nondistended, normoactive bowel sounds Neuro CN's II-XII intact bilaterally and no sensory deficits noted Sensorium / Orientation: alert Motor Exam: strength 5/5 throughout Psych mental status grossly normal Skin no rashes or lesions noted and no wounds General Skin Exam: Negative for jaundice or pallor MDM MDM MDM Narrative Medical decision making narrative: Presenting with weakness and confusion. She also had a fall with head injury on and suspected LOC. Differential includes intracranial hemorrhage, skull fracture, C-spine fracture, concussion, dehydration, electrolyte abnormalities, dysrhythmia, ACS, pneumonia, UTI, COVID, influenza. CBC will be obtained to assess white blood cell count, hemoglobin, platelets. CMP to assess liver function, renal function, electrolytes. Urinalysis to assess for UTI. EKG and high-sensitivity troponin to assess for ischemia/dysrhythmia chest x-ray to rule out pneumonia. COVID and influenza will be obtained to assess provided etiologies. Patient medicated with Tylenol and Zofran. He is given IV fluids. CT brain and CT cervical spine as the patient had an fall with head injury was unable to give a significant history to dementia. CBC shows normal white blood cell count of 8.1. Hemoglobin 14.2. Platelets normal 177. Renal function and electrolytes within normal limits. LFTs are normal. High-sensitivity troponin is 9. EKG on my interpretation shows a normal sinus rhythm with a ventricular 90 bpm without sign of ischemic change or ectopy. Chest x-ray my interpretation shows no acute process. Radiologist services and agrees. Patient feeling improved after Tylenol, Zofran, IV fluids. He gave a urine sample this appears to be negative as well. Rapid COVID came back positive. We will ambulate the patient with pulse ox as he is 93% sitting in the bed. Ambulated well maintaining sat 91%. No symptoms when he was ambulating. His gait was stable. He is a alert and awake. He states he feels much better. I wrote him prescription for Zofran and for Paxlovid at the request. Patient will be discharged home with these medications from the pharmacy. Impression: 1. COVID-19 2. Generalized weakness 3. Nausea 4. Closed head injury Lab Data Attestation: I reviewed the patient's lab results. Labs: Laboratory Results - last 24 hr 05/22/23 05/22/23 17:56 19:20 WBC 8.1 RBC 4.46 L Hgb 14.2 Hct 42.5 MCV 95.3 H MCH 31.8 MCHC 33.4 RDW Std Deviation 44.6 H RDW Coeff of Radha 12.7 Plt Count 177 MPV 10.5 Immature Gran % (Auto) 0.200 Neut % (Auto) 76.6 H Lymph % (Auto) 12.2 L [place] % (Auto) 10.4 H Eos % (Auto) 0.2 Baso % (Auto) 0.4 Absolute Neuts (auto) 6.2 Absolute Lymphs (auto) 0.98 Nucleated RBC % 0 Sodium 137 Potassium 4.0 Chloride 105 Carbon Dioxide 26.0 Anion Gap 6 BUN 9 Creatinine 0.83 Estim Creat Clear Calc 60.85 Est GFR (MDRD) Af Amer 113 Est GFR (MDRD) Non-Af 94 BUN/Creatinine Ratio 10.8 Glucose 99 Calcium 8.7 Total Bilirubin 0.70 AST 14 L ALT 26 Alkaline Phosphatase 55 Troponin I High Sens 9 Total Protein 6.5 Albumin 3.7 Globulin 2.8 Albumin/Globulin Ratio 1.3 Urine Color Yellow Urine Clarity Clear Urine pH 6.0 Ur Specific [place] 1.020 Urine Protein Negative Urine Glucose (UA) Normal Urine Ketones 50 H Urine Occult Blood Negative Urine Nitrite Negative Urine Bilirubin Negative Urine Urobilinogen Normal Ur Leukocyte Esterase 25 H Urine RBC 0 SEEN Urine WBC 0-5 SEEN Ur Squamous Epith Cells 0 SEEN Urine Bacteria 0 SEEN Urine Mucus 0 SEEN Radiography Diagnostic Testing: Clinical Impression(s) from Imaging Studies Brain CT 05/22/23 17:42 IMPRESSION: 1. No acute intracranial abnormality. 2. Underlying senescent change with small vessel ischemia. 3. Calcified mass along the inner table of the left frontal lobe compatible with a calcified meningioma. Electronically Signed: Henry Kirby MD at 18:52 EST , Cervical Spine CT 05/22/23 17:46 IMPRESSION: 1. No acute osseous abnormalities of the cervical spine. 2. Multilevel degenerative change with disc space narrowing and bony neural foraminal narrowing. Electronically Signed: Henry Kirby MD at 19:01 EST , Chest X-Ray 05/22/23 18:18 IMPRESSION: No radiographic evidence of acute cardiopulmonary disease. Electronically Signed: Henry iKrby MD at 18:55 EST , Discharge Plan Triage Chief Complaint: General Illness ED Provider: Jonathan Bedoya Dx/Rx/DC Orders Clinical Impression: COVID-19 Instructions: Caring for Someone Who Has COVID-19 Prescriptions: New ondansetron 4 mg tablet,disintegrating 4 mg PO Q8H PRN PRN (Reason: Nausea) Qty: 14 0RF Paxlovid 300 mg (150 mg x 2)-100 mg tablets,dose pack See Rx Instructions .ROUTE .COMPLEX Qty: 30 0RF Rx Instructions: take TWO 150 mg tablets of nirmatrelvir with ONE 100 mg tablet of ritonavir twice daily for 5 days No Action memantine 5 mg tablet 5 mg PO DAILY Primary Care Provider: Praneeth Spaulding Referrals: Praneeth Spaulding MD [Primary Care Provider] - Disposition Disposition: Home, Self Care
[2023-05-22] MEDS: 0.9% Normal Saline (500mL Bag) 500 ML 1000 ML IV (17:55)
[2023-05-22] MEDS: Acetaminophen 500 MG Tablet 1000 MG PO (18:04)
[2023-05-22] MEDS: Ondansetron 4 MG/2 ML Vial IV (18:06)
[2023-05-22 18:09] VITALS: TEMP 37.7
[2023-05-22 18:15] LABS: Absolute Lymphocyte Count 0.98 X10^3/uL (0.83-4.51); Absolute Neutrophil Count 6.2 X10^3/uL (2.0-7.7); Basophil# 0.03 X10^3/uL; Basophil% 0.4 % (0-1); Eosinophil# 0.02 X10^3/uL; Eosinophils% 0.2 % (0-5); Hematocrit 42.5 % (40-54); Hemoglobin 14.2 g/dL (13.0-16.5); Lymphocyte # 0.98 X10^3/ul (0.83-4.51); Lymphocyte % 12.2 % (19-41); Mean Corp Hgb Conc 33.4 g/dL (32-36); Mean Corpuscular Hgb 31.8 pg (27.0-32.0); Mean Corpuscular Volume 95.3 fL (80-94); Mean Platelet Vol. 10.5 fl (6.2-12.0); Monocyte# 0.84 X10^3/uL; Monocyte% 10.4 % (0-10); NRBC Flagged by Analyzer 0 % (0-5); Neutrophil # 6.17 X10^3/uL (2.7-7.7); Neutrophil % 76.6 % (47-70); Platelet Count 177 K/mm3 (150-450); RBC Distribution Width CV 12.7 % (11.6-14.6); RBC Distribution Width SD 44.6 fl (35.1-43.9); Red Blood Count 4.46 M/mm3 (4.6-6.2); White Blood Count 8.1 K/mm3 (4.4-11.0)
--- NOTE | 2023-05-22 18:18 | RAD_ITS ---
EXAM: XR CHEST, 1 VIEW CLINICAL INDICATION: weakness TECHNIQUE: Frontal view of the chest. COMPARISON: 09/07/2019 FINDINGS: LUNGS AND PLEURAL SPACES: Unremarkable. No consolidation or edema. No pneumothorax. No effusion. HEART: Unremarkable. Cardiac silhouette not enlarged. MEDIASTINUM: Central airways and mediastinal contour are unremarkable. BONES/JOINTS: Unremarkable. No acute fracture. SOFT TISSUES: Unremarkable. RAD/Chest 1 View (Portable) IMPRESSION: No radiographic evidence of acute cardiopulmonary disease. Electronically Signed: Henry Kirby MD at 18:55 EST ,
[2023-05-22 18:33] LABS: ALB/GLOB Ratio 1.3 RATIO (0.9-2.4); AST(SGOT) 14 U/L (15-37); Alanine Aminotransfer ALT/SGPT 26 U/L (16-61); Albumin, Serum 3.7 g/dL (3.2-5.0); Alkaline Phosphatase 55 U/L (45-117); Anion Gap 6 (5-15); BUN 9 mg/dL (7-18); BUN/Creat Ratio 10.8 RATIO (10-20); Calcium,Total 8.7 mg/dL (8.5-10.1); Chloride 105 mmol/L (98-107); Creatinine, Serum 0.83 mg/dL (0.70-1.30); EST Glomerular Filtration Rate 94 mL/min (>60); Est Glom Filt Rate - Afr Amer 113 mL/min (>60); Estimated Creatinine Clearance 60.85 ml/min; Globulin 2.8 g/dL (2.2-4.2); Glucose 99 mg/dL (74-106); Protein, Total 6.5 g/dL (6.4-8.2); Sodium Level 137 mmol/L (136-145); Troponin-I HS 9 pg/mL (3.0-78.0)
[2023-05-22 18:53] VITALS: BP 142/73; PULSE 96; RESP 18; O2SAT 89; O2SAT 94
[2023-05-22 19:27] LABS: Bacteria 0 SEEN /hpf (None Seen); Mucous, Urine 0 SEEN /hpf (<or=2+); Red Blood Cells-Urine 0 SEEN /hpf (0-5); Squamous Epithelial Cells - UA 0 SEEN /hpf (0-5)
[2023-05-22 19:37] LABS: Color, Urine Yellow (Yellow); Glucose, Dipstick Normal (Normal); Ketone-Dipstick 50 mg/dl (Negative); Leukocyte Esterase-Dipstick 25 /ul (Negative); Nitrite-Dipstick Negative (Negative); Occult Blood-Urine Negative /ul (Negative); Protein-Dipstick Negative (Negative); Urine Bilirubin Dipstick Negative (Negative); Urine Clarity Clear (Clear); Urine Urobilinogen Normal (Normal)
[2023-05-22 19:44] LABS: White Blood Cells 0-5 SEEN /hpf (0-5)
[2023-05-22 19:52] VITALS: O2SAT 91
== END 2023-05-22 20:54 | disposition home or self-care (01) ==
PROVIDERS: Emergency Provider Student in an Organized Health Care Education/Training Program; PCP Family Medicine; Visit Provider Student in an Organized Health Care Education/Training Program
DX: U07.1 COVID-19 (principal); F03.90 Unspecified dementia, unspecified severity, without behavioral disturbance, psychotic disturbance, mood disturbance, and anxiety; R53.1 Weakness; R11.0 Nausea; S09.90XA Unspecified injury of head, initial encounter; Z87.891 Personal history of nicotine dependence; W19.XXXA Unspecified fall, initial encounter
CPT/HCPCS: 70450; 71045; 72125; 80053; 81001; 84484; 85025; 87428; 93005; 96361; 96374; 99285; J7040; P9612; A4216; J2405

== ENCOUNTER 2024-01-28 10:13 | Emergency (ER) | payer MEDICARE, SELFPAY ==
[2024-01-28 10:13] VITALS: BP 147/68; PULSE 77; RESP 16; TEMP 36.2; O2SAT 95
--- NOTE | 2024-01-28 10:54 | ED.VIS.FALL ---
HPI HPI - Fall History of Present Illness Chief Complaint: Fall PFSH PFSH Medical History Abdominal pain COPD (chronic obstructive pulmonary disease) History of inguinal hernia Pulmonary fibrosis Right inguinal hernia Home Medications ?Medication ?Instructions ?Recorded ?Last Taken ?Type memantine 5 mg tablet 5 mg PO DAILY 05/22/23 Unknown History nirmatrelvir 300 mg (150 mg See Rx Instructions PO .COMPLEX 05/22/23 Unknown Rx x2)-ritonavir 100 mg tablet,dose #30 tabs pack (Paxlovid) ondansetron 4 mg disintegrating 4 mg PO Q8H PRN PRN Nausea #14 tabs 05/22/23 Unknown Rx tablet Allergy/AdvReac Type Severity Reaction Status Date / Time No Known Allergies Allergy Verified 01/28/24 10:13 Family History Mother Myocardial infarction Brother Myocardial infarction Father Emphysema of lung Surgical History History of right inguinal hernia repair (~03/24/18) History of tooth extraction Social History Smoking Status: Former smoker EXAM Physical Exam Const Vital Signs: 01/28/24 10:13 01/28/24 10:40 Temperature 97.2 F L Temperature Source Temporal Pulse Rate 77 Respiratory Rate 16 Respiratory Effort Normal Non-Labored Respiratory Depth Normal Respiratory Pattern Normal Blood Pressure 147/68 H Blood Pressure Mean 94 Pulse Ox 95 Oxygen Delivery Method Room Air MDM MDM MDM Narrative Medical decision making narrative: HISTORY OF PRESENT ILLNESS: 83-year-old male presents with fall. Patient cannot endorse the symptoms on the fall. He lives with his daughter. Daughter states she heard him fall walker room he was conscious on his left side. She thinks he tripped over the threshold to be in his room in the hallway. Patient is typically alert and oriented to person and place but not initially to time. He is at his baseline mental status today per his daughter. He denies any headache, fever, chills REVIEW OF SYSTEMS: Pertinent positives: Fall, left arm pain, left hip/lower back pain. Pertinent negatives: Syncope PHYSICAL EXAM: Nursing triage notes reviewed, Vital signs reviewed Primary Survey Airway: Intact Breathing: Bilateral breath sounds Circulation: Palpable bilateral femorals, Palpable bilateral radial, Palpable bilateral DP and Palpable bilateral PT Disability / Spine precautions GCS Score: Eye Openin Verbal Response: 5 Motor Response: 6 Secondary Survey Constitutional: Please see MDM Head: Atraumatic, Midface stable, NO jaw malocclusion, No Cephalohematoma, and No Lacerations noted Eye: Pupils equal round and reactive to light, Extraocular muscles intact and No periorbital ecchymosis or stepoff, no evidence of entrapment ENT: Oropharynx clear, no lacerations, no hemotympanum, no raccoon eyes or nails sign Cervical spine / Neck: No cervical spine bony tenderness, crepitance, or stepoff deformity Trachea midline Lungs: Clear to auscultation, No asymmetric rise and No crepitus, no flail chest Cardiac: Regular rate and rhythm and No murmurs Abdomen: Soft, Nontender and No rebound Pelvis: Pelvis stable to compression : No evidence of genital injury Back: No midline bony tenderness to thoracic/lumbar/sacral spines, bruising noted over the left lower spine Neuro: At baseline, intact strength and sensation in bilateral upper and lower extremities. 2+ patellar reflexes bilaterally. Extremities: NO gross Deformities Psych: Normal affect Skin: Skin tear to the left upper arm MEDICAL DECISION MAKING: Chief Complaint: Fall External records reviewed: Reviewed prior records Factors affecting care: COPD, pulmonary fibrosis Social determinants of health: Elderly History obtained from others: Patient's daughter Consults: none [facility] Narrative: Patient was initially hemodynamically stable, afebrile and nontoxic-appearing. Primary secondary trauma surveys concerning for intracranial, cervical spine, lumbar, left arm and left hip abnormality, anemia. Per patient's Patient's mental status at baseline. He had no lateralizing neurologic findings on initial exam. I considered the following differential diagnosis: Fracture dislocation or bony traumatic abnormality to the head, cervical spine, lumbar spine, left hip or left upper arm. I obtained imaging studies to further clarify if there are any traumatic injuries Initially treated the patient with 500 cc bolus for gentle rehydration. Also obtain labs given patient's unclear mechanism and poor baseline mental status to rule out etiology such as anemia, electrolyte disturbances, dehydration, ACS, arrhythmia. ALL IMAGES (IF OBTAINED) HAVE BEEN PERSONALLY REVIEWED AND INTERPRETED BY MYSELF. EKG with normal sinus rhythm (no arrhythmia), left ax deviation, normal intervals, no STEMI, similar to prior EKG from April 2023 CBC with no leukocytosis, no anemia, thrombo-cytopenia High-sensitivity troponin is negative, no evidence of myocardial ischemia I have personally reviewed the patient's chest x-ray. Chest x-ray is unremarkable for pulmonary edema, pneumothorax, pneumonia or focal cardiopulmonary abnormality. X-ray of the left hip and humerus were read reviewed myself shows no evidence of obvious bony abnormality CT scan of the head, cervical spine lumbar spine are negative for acute traumatic injury Tertiary trauma exam without new injury. Patient is at his baseline mental status. He is appropriate discharge home with Tylenol ibuprofen instructions, fall risk precautions and fall prevention home instructions. Strict return precautions were discussed The patient and/or family, caregivers express understanding. The patient and/or family, caregivers agrees with the plan. Shared decision making: I will have a discussion with the patient and or visitors regarding risk/benefits of further testing or admission. They will be made aware of of the risk/benefits inherent in this decision they will be given the opportunity to voice understanding. Total critical care time today provided was at least 0 minutes. This excludes separately billable procedures. Critical care time (if documented) is secondary to the patient having high probability of clinically significant/life threatening deterioration in the patient's condition which required my urgent intervention. Impression: 1. Fall 2. Left arm contusion 3. Lower back contusion Dispo: Discharge home This note was generated with [employer] dictation software. It may contain incorrect words, spelling, and punctuation that were not noted in review of the chart prior to signing. Lab Data Labs: Laboratory Results - last 24 hr 01/28/24 11:25 WBC 7.4 RBC 4.59 L Hgb 14.6 Hct 42.9 MCV 93.5 MCH 31.8 MCHC 34.0 RDW Std Deviation 43.8 RDW Coeff of Radha 12.9 Plt Count 202 MPV 10.3 Immature Gran % (Auto) 0.400 Neut % (Auto) 73.9 H Lymph % (Auto) 17.7 L [place] % (Auto) 6.9 Eos % (Auto) 0.8 Baso % (Auto) 0.3 Absolute Neuts (auto) 5.5 Absolute Lymphs (auto) 1.31 Nucleated RBC % 0 Sodium 138 Potassium 4.4 Chloride 110 H Carbon Dioxide 24.0 Anion Gap 4 L BUN 8 Creatinine 0.76 Est GFR (MDRD) Af Amer 126 Est GFR (MDRD) Non-Af 104 BUN/Creatinine Ratio 10.6 Glucose 103 Calcium 8.7 Total Bilirubin 0.70 AST 17 ALT 24 Alkaline Phosphatase 54 Troponin I High Sens 6 Total Protein 6.4 Albumin 3.6 Globulin 2.8 Albumin/Globulin Ratio 1.3 Radiography Diagnostic Testing: Clinical Impression(s) from Imaging Studies Chest X-Ray 01/28/24 11:17 IMPRESSION: Mild increased markings at the lung bases suggestive of either bibasilar atelectasis and/or scarring. Electronically Signed: Pepe Bunn MD at 12:21 EDT , Hip/Pelvis X-Ray 01/28/24 11:17 IMPRESSION: Degenerative changes of both hip joints. Electronically Signed: Pepe Bunn MD at 12:20 EDT , Humerus X-Ray 01/28/24 11:35 IMPRESSION: Normal x-ray examination of the humerus. Electronically Signed: Pepe Bunn MD at 12:19 EDT , Brain CT 01/28/24 11:37 IMPRESSION: Chronic involutional changes of the brain. Stable bony density along the anterolateral aspect of the inner table of the left frontal bone suggestive of a calcified meningioma. Electronically Signed: Pepe Bunn MD at 11:59 EDT , Cervical Spine CT 01/28/24 11:37 IMPRESSION: Multilevel degenerative changes, as described above. Electronically Signed: Pepe Bunn MD at 12:02 EDT , Lumbar Spine CT 01/28/24 11:37 IMPRESSION: Multilevel degenerative changes, as described above. Electronically Signed: Pepe Bunn MD at 12:10 EDT , Discharge Plan Triage Chief Complaint: Fall ED Provider: Helder Aiken Dx/Rx/DC Orders Prescriptions: No Action memantine 5 mg tablet 5 mg PO DAILY ondansetron 4 mg tablet,disintegrating 4 mg PO Q8H PRN PRN (Reason: Nausea) Qty: 14 0RF Paxlovid 300 mg (150 mg x 2)-100 mg tablets,dose pack See Rx Instructions .ROUTE .COMPLEX Qty: 30 0RF Rx Instructions: take TWO 150 mg tablets of nirmatrelvir with ONE 100 mg tablet of ritonavir twice daily for 5 days Primary Care Provider: Praneeth Spaulding Referrals: Praneeth Spaulding MD [Primary Care Provider] - Print Language: Lao
--- NOTE | 2024-01-28 11:17 | EKG12_ITS ---
Test Reason : FALL Blood Pressure : / mmHG Vent. Rate : 074 BPM Atrial Rate : 074 BPM P-R Int : 172 ms QRS Dur : 082 ms QT Int : 382 ms P-R-T Axes : 049 006 012 degrees QTc Int : 424 ms Sinus rhythm with occasional Premature ventricular complexes Otherwise normal ECG Confirmed by Olivier De Jesus ([id number]), copy editor HANNAH PANDA ([id number]) on 01/31/2024 2:02:30 PM Referred By: BERNADINE Confirmed By:Olivier De Jesus
--- NOTE | 2024-01-28 11:17 | RAD_ITS ---
STUDY: X-RAY CHEST REASON FOR EXAM: Male, 83 years old. Fall, ?syncope TECHNIQUE: Single AP portable view of the chest. COMPARISON: Comparison is made with prior study dated May 22, 2023. FINDINGS: Mild increased markings at the lung bases which have progressed as compared to prior study suggestive of a bibasilar scarring and/or atelectasis. There is no demonstrated pleural abnormality. Normal size heart. Normal mediastinum and amee. Normal visualized pulmonary arteries. There is atherosclerotic calcification of the aortic arch with tortuosity. There are diffuse degenerative changes of the visualized thoracic spine. Normal visualized ribs, clavicles, and shoulders. There is no demonstrated abnormality of the visualized soft tissue structures of the upper abdomen. RAD/Chest 1 View (Portable) IMPRESSION: Mild increased markings at the lung bases suggestive of either bibasilar atelectasis and/or scarring. Electronically Signed: Pepe Bunn MD at 12:21 EDT ,
--- NOTE | 2024-01-28 11:17 | RAD_ITS ---
STUDY: X-RAY - PELVIS AND LEFT HIP REASON FOR EXAM: Male, 83 years old. Hip pain TECHNIQUE: 3 views of the pelvis and hip. COMPARISON: None. FINDINGS: There is a non-specific bowel gas pattern. Normal visualized soft tissue structures. Normal bilateral iliac wings, sacroiliac joints and visualized sacrum. Normal bilateral superior and inferior pubic rami. Normal pubic symphysis. Normal bilateral ischial tuberosities. Normal visualized femoral head. Normal acetabulum. There is moderate articular joint space narrowing of the hip. RAD/HIP, UNI W/ Pelvis 2-3 Views IMPRESSION: Degenerative changes of both hip joints. Electronically Signed: Pepe Bunn MD at 12:20 EDT ,
[2024-01-28 11:32] LABS: Absolute Lymphocyte Count 1.31 X10^3/uL (0.83-4.51); Absolute Neutrophil Count 5.5 X10^3/uL (2.0-7.7); Basophil# 0.02 X10^3/uL; Basophil% 0.3 % (0-1); Eosinophil# 0.06 X10^3/uL; Eosinophils% 0.8 % (0-5); Hematocrit 42.9 % (40-54); Hemoglobin 14.6 g/dL (13.0-16.5); Lymphocyte # 1.31 X10^3/ul (0.83-4.51); Lymphocyte % 17.7 % (19-41); Mean Corpuscular Hgb 31.8 pg (27.0-32.0); Mean Corpuscular Volume 93.5 fL (80-94); Mean Platelet Vol. 10.3 fl (6.2-12.0); Monocyte# 0.51 X10^3/uL; Monocyte% 6.9 % (0-10); NRBC Flagged by Analyzer 0 % (0-5); Neutrophil # 5.49 X10^3/uL (2.7-7.7); Neutrophil % 73.9 % (47-70); Platelet Count 202 K/mm3 (150-450); RBC Distribution Width CV 12.9 % (11.6-14.6); RBC Distribution Width SD 43.8 fl (35.1-43.9); Red Blood Count 4.59 M/mm3 (4.6-6.2); White Blood Count 7.4 K/mm3 (4.4-11.0)
--- NOTE | 2024-01-28 11:35 | RAD_ITS ---
STUDY: X-RAY - LEFT HUMERUS REASON FOR EXAM: Male, 83 years old. pain TECHNIQUE: 2 view(s) of the humerus. COMPARISON: None. FINDINGS: Normal visualized humerus. There is no demonstrated fracture or osseous destructive process. There is no demonstrated soft tissue abnormality. RAD/Humerus min 2 Views IMPRESSION: Normal x-ray examination of the humerus. Electronically Signed: Pepe Bunn MD at 12:19 EDT ,
--- NOTE | 2024-01-28 11:37 | CT_ITS ---
STUDY: CT LUMBAR SPINE WITHOUT CONTRAST REASON FOR EXAM: Male, 83 years old. No back pain following a fall. RADIATION DOSAGE (If Supplied By Facility): CTDIvol = ( 29.16 ) mGy, DLP = ( 1000.45 ) mGycm TECHNIQUE: The patient was scanned in a multi detector CT scanner. High resolution transaxial imaging was performed. Images were obtained from L1 to the S1 vertebral level. Sagittal and coronal images were reconstructed. Individualized dose optimization techniques were used for this CT. COMPARISON: None FINDINGS: Mild increased markings at the lung bases more prominent at the right lung base suggestive of a basilar atelectasis. Normal lumbar lordosis. There is no substantial scoliosis. Normal vertebrae of the lumbar spine. L1-2: Normal endplates. Normal disc height and morphology. Normal bilateral facet joints. Normal central canal and bilateral lateral recesses. Normal bilateral intervertebral neural foramina. L2-3: Normal endplates. Normal disc height and morphology. Normal bilateral facet joints. Normal central canal and bilateral lateral recesses. Normal bilateral intervertebral neural foramina. L3-4: Mild degree of disc space narrowing. Facet joint osteoarthritis. Mild degree of bilateral neural foraminal stenosis. L4-5: Mild degree of disc space narrowing. Facet joint osteoarthritis and hypertrophy. No significant stenosis seen. L5-S1: Normal endplates. Normal disc height and morphology. Normal bilateral facet joints. Normal central canal and bilateral lateral recesses. Normal bilateral intervertebral neural foramina. Distended urinary bladder. Calcification of the abdominal aorta. CT/Spine Lumbar without Contrast IMPRESSION: Multilevel degenerative changes, as described above. Electronically Signed: Pepe Bunn MD at 12:10 EDT ,
--- NOTE | 2024-01-28 11:37 | CT_ITS ---
STUDY: CT CERVICAL SPINE WITHOUT CONTRAST REASON FOR EXAM: Male, 83 years old. Neck pain RADIATION DOSAGE (If Supplied By Facility): CTDIvol = ( 27.59 ) mGy, DLP = ( 556.45 ) mGycm TECHNIQUE: High resolution transaxial imaging was performed without contrast material. Sagittal and coronal images were reconstructed. Individualized dose optimization techniques were used for this CT. COMPARISON: Comparison is made with prior study dated May 22, 2023. FINDINGS: Normal craniovertebral junction. There are degenerative changes of the anterior atlantoaxial articulation. Normal odontoid process. Normal cervical lordosis. Multilevel facet joint osteoarthritis. C2-3: Disc space narrowing. Mild subchondral sclerosis. No significant stenosis seen. C3-4: Moderate degree of disc space narrowing. Mild uncovertebral arthrosis. No significant stenosis seen. C4-5: Moderate degree of disc space narrowing. Uncovertebral arthrosis. Facet joint osteoarthritis and hypertrophy worse on the left side. Mild to moderate degree of left neural foraminal stenosis. C5-6: Moderate degree of disc space narrowing. No stenosis seen. C6-7: Marked degree of disc space narrowing. Uncovertebral arthrosis. No significant spinal stenosis seen. C7-T1: Normal endplates. Normal disc height and morphology. Normal central canal and intervertebral neuroforamina. Atherosclerotic calcific plaques in the carotid bifurcations bilaterally. CT/Spine Cervical without Contras IMPRESSION: Multilevel degenerative changes, as described above. Electronically Signed: Pepe Bunn MD at 12:02 EDT ,
--- NOTE | 2024-01-28 11:37 | CT_ITS ---
STUDY: CT BRAIN WITHOUT CONTRAST REASON FOR EXAM: Male, 83 years old. Fall, head trauma RADIATION DOSAGE (If Supplied By Facility): CTDIvol = ( 44.99 ) mGy, DLP = ( 880.47 ) mGycm TECHNIQUE: Transaxial CT imaging of the brain was performed without administration of intravenous contrast material. Individualized dose optimization techniques were used for this CT. COMPARISON: Comparison is made with prior study dated May 22, 2023. FINDINGS: Normal soft tissue structures. Stable 1.9 cm x 0.9 cm bony density along the anterior lateral aspect of the inner table of the left frontal bone suggestive of possible meningioma. There is moderate cerebral atrophy with widening of the extra-axial spaces and ventricular dilatation. There are areas of decreased attenuation within the white matter tracts of the supratentorial brain, consistent with microvascular disease changes. Normal basal ganglia and thalami. Normal brainstem. Normal cerebellum. Atherosclerotic calcification of the cavernous portions of the internal carotid arteries bilaterally. There is no intracranial hemorrhage. There are no findings of an acute ischemic infarction. Normal visualized paranasal sinuses. CT/Brain/Head without Contrast IMPRESSION: Chronic involutional changes of the brain. Stable bony density along the anterolateral aspect of the inner table of the left frontal bone suggestive of a calcified meningioma. Electronically Signed: Pepe Bunn MD at 11:59 EDT ,
[2024-01-28 12:03] LABS: ALB/GLOB Ratio 1.3 RATIO (0.9-2.4); AST(SGOT) 17 U/L (15-37); Alanine Aminotransfer ALT/SGPT 24 U/L (16-61); Albumin, Serum 3.6 g/dL (3.2-5.0); Alkaline Phosphatase 54 U/L (45-117); Anion Gap 4 (5-15); BUN 8 mg/dL (7-18); BUN/Creat Ratio 10.6 RATIO (10-20); Calcium,Total 8.7 mg/dL (8.5-10.1); Chloride 110 mmol/L (98-107); Creatinine, Serum 0.76 mg/dL (0.70-1.30); EST Glomerular Filtration Rate 104 mL/min (>60); Est Glom Filt Rate - Afr Amer 126 mL/min (>60); Globulin 2.8 g/dL (2.2-4.2); Glucose 103 mg/dL (74-106); Potassium 4.4 mmol/L (3.5-5.1); Protein, Total 6.4 g/dL (6.4-8.2); Sodium Level 138 mmol/L (136-145); Troponin-I HS 6 pg/mL (3.0-78.0)
[2024-01-28] MEDS: 0.9% Normal Saline (500mL Bag) 500 ML 1000 ML IV (12:05)
[2024-01-28 12:13] VITALS: BP 121/71; PULSE 61; RESP 18; O2SAT 100
[2024-01-28 12:52] VITALS: BP 121/71; PULSE 61; RESP 16; TEMP 36.4; O2SAT 99
== END 2024-01-28 12:53 | disposition home or self-care (01) ==
PROVIDERS: Emergency Provider Emergency Medicine; PCP Family Medicine; Visit Provider Emergency Medicine
DX: S40.022A Contusion of left upper arm, initial encounter (principal); J44.9 Chronic obstructive pulmonary disease, unspecified; S20.229A Contusion of unspecified back wall of thorax, initial encounter; Z87.891 Personal history of nicotine dependence; W01.0XXA Fall on same level from slipping, tripping and stumbling without subsequent striking against object, initial encounter
CPT/HCPCS: 70450; 71045; 72125; 72131; 73060; 73502; 80053; 84484; 85025; 93005; 99284; J7040; A4216

== ENCOUNTER 2025-01-07 20:19 | Day surgery (SDC) | payer MEDICARE, SELFPAY ==
[2025-01-07] VITALS (12 sets, daily range): BP systolic 123–148; BP diastolic 70–82; PULSE 78–100; RESP 16; TEMP 36.1–36.7; O2SAT 90–98; BMI 27.2
--- NOTE | 2025-01-07 20:34 | EDS_ITS ---
HPI History of Present Illness Chief Complaint: Foreign Body Detail of Chief Complaint: Unable to swallow Informant: patient and family Narrative Narrative: Patient presents the emergency department with difficulty swallowing. Patient was eating a turkey burger when he started to choke on it. He was able to cough some of it up and now cannot drink water or swallow his own spit. Apparently similar episode years ago in [place] where he had to have a scope. Patient has history of dementia. History of COPD. Most of the history comes from the patient's daughter who is with him [facility] Medical History Right inguinal hernia History of inguinal hernia Abdominal pain COPD (chronic obstructive pulmonary disease) Pulmonary fibrosis Home Medications ?Medication ?Instructions ?Recorded ?Last Taken ?Type memantine 5 mg tablet 5 mg PO DAILY 05/22/23 Unkno wn History nirmatrelvir 300 mg (150 mg See Rx Instructions PO .CO MPLEX 05/22/23 Unknown Rx x2)-ritonavir 100 mg tablet,dose #30 tabs pack (Paxlovid) ondansetron 4 mg disintegrating 4 mg PO Q8H PRN PRN Na usea #14 tabs 05/22/23 Unknown Rx tablet Allergy/AdvReac Type Severity Reaction Status Date / Time No Known Allergies Allergy Verified 01/07/25 20:20 Family History Mother Myocardial infarction Brother Myocardial infarction Father Emphysema of lung Surgical History History of right inguinal hernia repair (~03/24/18) History of tooth extraction Social History Smoking Status: Former smoker ROS ROS ED Review of Systems ROS Unobtainable: other Constitutional Constitutional ED: Reports lethargy; Denies chills, fever(s), sweats or weight loss Eyes Eyes: Denies blurry vision, change in vision or diplopia ENT ENT ED: Denies rhinorrhea or sore throat Cardiovascular Cardiovascular: Denies chest pain, orthopnea or racing heartbeat Respiratory/Chest Respiratory/Chest: Denies cough, dyspnea, dyspnea on exertion, orthopnea or sputum Gastrointestinal Gastrointestinal: Reports other Details: Unable to swallow ; Denies abdominal pain, diarrhea, nausea or vomiting Genitourinary Genitourinary ED: Denies dysuria, hematuria or urinary frequency Musculoskeletal Musculoskeletal: Denies arthralgias, back pain, myalgias or neck pain Integumentary Denies abscess, Abrasions or rash Neurologic Neurologic: Denies headache(s) or weakness Psychiatric Psychiatric: Denies anxiety, depression or suicidal thoughts Endocrine Endocrinology: Denies polydipsia, polyphagia or polyuria Hematologic/Lymphatic Hematologic/Lymphatic: Denies easy bleeding, easy bruising or lymphadenopathy Allergic/Immunologic Allergic/Immunologic ED: Denies mouth swelling, tongue swelling or urticaria EXAM Physical Exam Const Vital Signs: 01/07/25 20:20 01/07/25 20:28 Temperature 98 F Temperature Source Oral Pulse Rate 78 Respiratory Rate 16 Respiratory Effort Normal Blood Pressure 148/77 H Blood Pressure Mean 100 Pulse Ox 98 Oxygen Delivery Method Room Air Positive well nourished and well developed General Appearance ED: well developed and NAD HEENT Reports TM's clear and moist mucous membranes normocephalic and atraumatic; Negative for trauma or tenderness Tympanic Membrane ED: Yes TM's clear Eyes PERRL and EOMs intact bilaterally General Eye ED: Negative for pale conjunctiva or scleral icterus Neck no lymphadenopathy, supple and no JVD General: Negative for tenderness Chest Wall inspection of chest normal and palpation of chest normal Chest: Negative for tenderness Resp normal respiratory effort and clear to auscultation bilaterally Effort and Inspection: Negative for respiratory distress or pain with movement Auscultation: Negative for rhonchi, wheezes or diminished lung sounds Cardio regular rate, regular rhythm, S1 normal heart sound, S2 normal heart sound and no murmurs Peripheral Pulses: pulses 2+ throughout GI normal to inspection, nondistended, normoactive bowel sounds, soft to palpation, non-tender, non-distended and no masses GI Narrative: Patient gagging and unable to swallow secretions. Back/Spine no CVA tenderness and no thoracic nor lumbar tenderness Extremity normal to inspection General Extremety ED: Negative for edema General Extremity: Negative for edema Neuro oriented x3, CN's II-XII intact bilaterally, no sensory deficits noted and gait normal Sensorium / Orientation: awake, alert, oriented to person, oriented to place and oriented to time Motor Exam: strength 5/5 throughout and strength abnormal Psych mental status grossly normal Skin no rashes or lesions noted and no wounds MDM MDM MDM Narrative Medical decision making narrative: We attempted Diet Coke however patient not able to swallow. An IV line will be established. Patient will be given a milligram of glucagon IV. I will discuss case with general surgeon on-call to present for EGD for removal of esophageal food impaction. Patient did receive the glucagon. I had called the surgeon to come in as I typically do not see much success with glucagon alleviating the food impaction. Team was called for endoscopy. On arrival surgeon spoke with patient's daughter who became agitated that we have not given the glucagon long enough to work. Apparently last time patient had this happen in [place] they had to wait longer than usual for the glucagon to work and eventually it did work in relieving the obstruction. Patient then apparently became combative and police was called to de-escalate and talk to the daughter. Patient started having hiccups and I agreed to give patient some Thorazine to help with that but felt that the definitive treatment was upper scope to remove the impaction. Eventually patient's other daughter arrived to the emergency department. She will give consent for patient to go to endoscopy for EGD to remove the obstruction. Discharge Plan Triage Chief Complaint: Foreign Body ED Provider: Taz Jenkins Dx/Rx/DC Orders Clinical Impression: Esophageal obstruction due to food impaction Primary Care Provider: Praneeth Spaulding Disposition Disposition: Acute Care Hospital [facility]
[2025-01-07] MEDS: Glucagon 1 MG/ML Syringe IV (20:45)
--- OUTSIDE RECORDS SUMMARY | 2025-01-07 20:57 | XMS RPT_ITS | CCD ---
Author Organization [facility] Care Team Providers Care Journalism Professor Name Role Phone Jacquelin Spaulding MD Primary Care Provider CATHERINE CROW Attending Unavailable CATHERINE CROW Referring Unavailable JACQUELIN SPAULDING Primary Care Unavailable CATHERINE CROW Referring Unavailable JACQUELIN SPAULDING Primary Care Unavailable CATHERINE CROW Attending Unavailable JACQUELIN SPAULDING Referring Unavailable JACQUELIN SPAULDING Primary Care Unavailable Jacquelin Spaulding MD Primary Care Provider Jacquelin Spaulding MD Primary Care Provider Jacquelin Spaulding MD Primary Care Provider Rossy MANAGER OF PMOMarion ERNST Unavailable Alexander MANAGER OF PMOPedro MCCALL Unavailable Helder Aiken Attending Unavailable Jacquelin Spaulding Primary Care Unavailable Jacquelin Spaulding Primary Care Unavailable Jacquelin Spaulding Attending Unavailable JACQUELIN SPAULDING Referring Unavailable JACQUELIN SPAULDING Primary Care Unavailable AJCQUELIN SPAULDING Primary Care Unavailable JACQUELIN SPAULDING Attending Unavailable JACQUELIN SPAULDING Primary Care Unavailable JACQUELIN SPAULDING Attending Unavailable JACQUELIN SPAULDING Primary Care Unavailable JACQUELIN SPAULDING Referring Unavailable JACQUELIN SPAULDING Primary Care Unavailable ELDERJACQUELIN SHAH Referring Unavailable JACQUELIN SPAULDING Attending Unavailable JACQUELIN SPAULDING Primary Care Unavailable JACQUELIN SPAULDING Attending Unavailable JACQUELIN SPAULDING Primary Care Unavailable JACQUELIN SPAULDING Attending Unavailable SELF Referring Unavailable JACQUELIN SPAULDING Primary Care Unavailable ELDERJACQUELIN SHAH Primary Care Unavailable Medications Current Medications Medication Drug Class(es) Dates Sig (Normalized) Sig (Original) benzonatate 100 mg oral capsule (1 source) Non-narcotic Antitussive Start: 04-23-2022 End: 05-03-2022 take 1 capsule by mouth three times daily as needed for cough benzonatate (TESSALON PERLES) 100 mg capsule Indications: COVID-19 Take 1 capsule by mouth three times daily as needed for cough for up to 10 days. 30 capsule 0 04/23/2022 05/03/2022 Active Comment on above: Take 1 capsule by mo [facility] three times daily as needed for cough for up to 10 days. furosemide 20 mg oral tablet (7 sources) Loop Diuretic Start: 07-14-2024 End: 08-21-2024 take 1 tablet by mouth once daily furosemide (LASIX) 20 mg tablet Indications: Bilateral leg edema Take 1 tablet by mouth once daily. 90 tablet 1 08/21/2024 Active memantine hydrochloride 5 mg oral tablet (20 sources) R-mbzbrq-G-asparta te Receptor Antagonist Start: 05-22-2023 take 5 mg by mouth once daily Memantine Active 5 MG PO DAILY May 22, 2023 12:00am Start: 10-06-2022 End: 01-21-2024 take 1 tablet by mouth twice daily memantine (NAMENDA) 5 mg tablet Take 1 tablet by mouth two times a day. 180 tablet 3 01/21/2024 Active Start: 03-20-2022 End: 09-08-2022 take 1 tablet by mouth twice daily memantine (NAMENDA) 5 mg tablet Indications: Mild dementia Take 1 tablet by mouth twice daily. 180 tablet 3 06/10/2022 09/08/2022 Active Comment on above: Take 1 tablet by carina twice daily. Take 1 tablet by carina twice daily for 14 days. nirmatrelvir tablet 300 mg (150 mg x 2) and ritonavir tablet 100 mg in a dose pack (PAXLOVID) (1 source) Start: 04-23-20 End: 04-28-20 nirmatrelvir tablet 300 mg (150 mg x 2) and ritonavir tablet 100 mg in a dose pack (PAXLOVID) Indications: COVID-19 Administer TWO pink nirmatrelvir 150 mg tablets and ONE white ritonavir 100 mg tablet for a total of three tablets twice daily. 30 tablet 0 04/23/2022 04/28/2022 Active Comment on above: Administer TWO pink nirmatrelvir 150 mg tablets and ONE white ritonavir 100 mg tablet for a total of three tablets twice daily. Nirmatrelvir-Ritonavir (1 source) Start: 05-22-20 Nirmatrelvir-Ritonav ir (Paxlovid) 300 mg (150 mg x 2)-100 mg tablets,dose pack Active 0 PO .COMPLEX May 22, 2023 12:00am take TWO 150 mg tablets of nirmatrelvir with ONE 100 mg tablet of ritonavir twice daily for 5 days ondansetron 4 mg disintegrating oral tablet (1 source) Serotonin-3 Receptor Antagonist Start: 05-22-20 take 4 mg by mouth every eight hours as needed Ondansetron Active 4 MG PO EVERY 8 HOURS NEEDED May 22, 2023 12:00am triamcinolone acetonide 0.005 mg/mg topical ointment (5 sources) Corticosteroid Start: 06-10-20 End: 06-20-20 triamcinolone acetonide topical 0.5 % ointment Indications: Contact dermatitis, unspecified contact dermatitis type, unspecified trigger Apply to affected area twice daily for 10 days. 15 g 3 06/10/2022 06/20/2022 Active Start: 04-21-2022 End: 05-21-2022 triamcinolone acetonide (BRET ALOG) 0.1 % cream Indications: Rash Apply 1 application to affected area twice daily. Apply sparingly to area for rash/itching. 28.4 g 0 04/21/2022 05/21/2022 Active Comment on above: Apply 1 application to affected area twi ce daily. Apply sparingly to area for rash/itching. Apply to affected ar ea twice daily for 10 days. vitamin b12 1 mg oral tablet (20 sources) Vitamin B12 Start: 3 End: 4 take 1 tablet by mouth twice daily cyanocobalamin (VITAMIN B-12) 1,000 mcg tab Indications: Mild dementia (HCC) , Vitamin B12 deficiency Take 1 tablet by mouth two times a day. 180 tablet 3 11/05/2023 Active Comment on above: Take 1 tablet by mouth twice daily. Completed/Discontinued Medications Medication Drug Class(es) Dates Sig (Normalized) Sig (Original) acetaminophen 325 mg / HYDROcodone bitartrate 5 mg oral tablet (1 source) Opioid Agonist Start: 03-24-2018 End: 03-27-2018 take 1 tablet by mouth every six hours as needed Hydrocodone-Acetam inophen Discontinued 1 TABLET PO EVERY 6 HOURS NEEDED 8 3 March 23, 2018 11:00pm March 26, 2018 11:09pm [id number] 200 actuat albuterol 0.09 mg/actuat metered dose inhaler (1 source) beta2-Adrenergic Agonist Start: 10-08-2017 End: 02-02-2018 take 1 puff(s) by inhalation every six hours as needed Albuterol Sulfate Discontinued 2 PUFF INHALATION EVERY 6 HOURS NEEDED October 07, 2017 11:00pm February 02, 2018 2:00pm 120 actuat budesonide 0.16 mg/actuat / formoterol fumarate 0.0045 mg/actuat metered dose inhaler (1 source) Corticosteroid, beta2-Adrenergic Agonist Start: 10-10-2017 End: 02-02-2018 take 1 puff(s) by inhalation twice daily Budesonide-Formote rol Discontinued 2 PUFF INHALATION TWICE A DAY 1 October 09, 2017 11:00pm February 02, 2018 2:01pm doxycycline hyclate 100 mg oral tablet (1 source) Tetracycline-cla ss Drug Start: 10-08-2017 End: 10-10-2017 take 100 mg by mouth twice daily Doxycycline Hyclate Discontinued 100 MG PO TWICE A DAY October 07, 2017 11:00pm October 10, 2017 11:32am omeprazole 40 mg delayed release oral capsule (1 source) Proton Pump Inhibitor Start: 03-17-2018 End: 03-23-2018 take 40 mg by mouth once daily Omeprazole Discontinued 40 MG PO DAILY March 16, 2018 11:00pm March 23, 2018 8:21am predniSONE 10 mg oral tablet (1 source) Start: 10-28-2017 End: 02-02-2018 take 30 mg by mouth once daily Prednisone Discontinued 30 MG PO DAILY October 27, 2017 11:00pm February 02, 2018 2:01pm Problems Active Problems Problem Classification Problem Date Documented Da te Episodic/Chronic Abdominal hernia (1 source) Inguinal hernia; Translations: [Unilateral inguinal hernia, without obstruction or gangrene, not specified as recurrent] 09-07-2019 Episodic Abdominal pain (1 source) Abdominal pain; Translations: [Unspecified abdominal pain] 03-24-2018 Episodic Alcohol-related disorders (1 source) Alcohol intake above recommended sensible limits; Translations: [Alcohol abuse, uncomplicated] Chronic Allergic reactions (1 source) Contact dermatitis; Translations: [Unspecified contact dermatitis, unspecified cause] Episodic Delirium, dementia, and amnestic and other cognitive disorders (20 sources) Senile dementia; Translations: [Alzheimer's disease with late onset] Onset: 03-20-2022 Chronic E Codes: Fall (2 sources) Fall; Translations: [Unspecified fall, initial encounter] 01-28-2024 Episodic Immunizations and screening for infectious disease (2 sources) Vaccination needed; Translations: [Encounter for immunization] Onset: 11-09-2024 11-09-2024 Episodic Nutritional deficiencies (2 sources) Vitamin D deficiency; Translations: [Vitamin D deficiency, unspecified] Onset: 03-20-2022 Chronic Open wounds of head; neck; and trunk (1 source) Laceration of forehead; Translations: [Laceration without foreign body of other part of head, initial encounter] 09-16-2021 Episodic Other gastrointestinal disorders (2 sources) Gagging; Translations: [Other specified symptoms and signs involving the digestive system and abdomen] 07-14-2024 Episodic Other gastrointestinal disorders (4 sources) Esophageal dysphagia; Translations: [Other dysphagia] 07-14-2024 Episodic Other gastrointestinal disorders (1 source) Other dysphagia; Translations: [Esophageal dysphagia] Onset: 10-05-2024 Episodic Other lower respiratory disease (1 source) Fibrosis of lung; Translations: [Pulmonary fibrosis, 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-24-2018 Chronic Other lower respiratory disease (1 source) Cough; Translations: [Acute cough] Episodic Other screening for suspected conditions (not mental disorders or infectious disease) (2 sources) Patient encounter status; Translations: [Encounter for screening for malignant neoplasm of intestinal tract, 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-24-2018 Episodic Other skin disorders (1 source) Eruption; Translations: [Rash and other nonspecific skin eruption] Episodic Other upper respiratory infections (1 source) Acute upper respiratory infection; Translations: [Acute upper respiratory infection, unspecified] Episodic Peripheral and visceral atherosclerosis (1 source) Vascular disorder; Translations: [Peripheral vascular disease, unspecified] 08-21-2024 Chronic Pneumonia (except that caused by tuberculosis or sexually transmitted disease) (1 source) Pneumonia; Translations: [Pneumonia, unspecified organism] 03-24-2018 Episodic Residual codes; unclassified (2 sources) Memory impairment; Translations: [Other amnesia] Episodic Residual codes; unclassified (1 source) Other amnesia; Translations: [Memory deficit] Onset: 03-20-2022 Episodic Residual codes; unclassified (1 source) Difficulty sleeping ; Translations: [Sleep disorder, unspecified] Episodic Residual codes; unclassified (1 source) Current drinker; Translations: [Other specified health status] 05-08-2024 Episodic Residual codes; unclassified (4 sources) Bilateral lower limb edema; Translations: [Localized edema] Onset: 11-09-2024 07-14-2024 Episodic Residual codes; unclassified (2 sources) Localized edema; Translations: [Localized edema] Onset: 07-15-2024 Episodic Unclassified (1 source) Mild late onset Alzh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, psychotic disturbance, mood disturbance, or anxiety (HCC); Translations: [Mild late onset Alzh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, psychotic disturbance, mood disturbance, or anxiety (HCC)] Onset: 04-09-2022 Unclassified (1 source) Moderate dementia, unspecified dementia type, unspecified whether behavioral, psychotic, or mood disturbance or anxiety (HCC); Translations: [Moderate dementia, unspecified dementia type, unspecified whether behavioral, psychotic, or mood disturbance or anxiety (HCC)] Onset: 11-09-2024 Varicose veins of lower extremity (1 source) Varicose veins of bilateral lower limbs; Translations: [Asymptomatic varicose veins of bilateral lower extremities] Episodic Viral infection (2 sources) Disease caused by 2019-nCoV; Translations: [COVID-19] Episodic Past or Other Problems Problem Classification Problem Date Documented Da te Episodic/Chronic Chronic obstructive pulmonary disease and bronchiectasis (20 sources) Pulmonary emphysema; Translations: [Emphysema, unspecified] Onset: 10-11-2017 Resolved: 07-06-2023 10-11-2017 Chronic Nutritional deficiencies (20 sources) Cobalamin deficiency; Translations: [Deficiency of other specified B group vitamins] Onset: 10-06-2022 Episodic Other connective tissue disease (1 source) Pain in left arm; Translations: [Pain in left arm] Onset: 02-15-2024 Episodic Results Test Name Value Interpretation Reference Range Facility [facility] 11-09-2024 CNOV Office Visit (FAMPWS) MELVIN RIDDLE ([id number]) 1940 M Date Time Provider Department 11/09/24 1:20 PM [facility] During your visit today, we recorded the following information about you: Pulse Respiration Blood pressure Weight 80/minute 14/minute 128/74 78.6 kg Jacquelin Spaulding MD 11/09/2024 4:03 PM Signed Chief Complaint Patient presents with: 6 Month Exam HPI Melvin Riddle is a 84 year old male who presents here today for 6 month follow up. Here with his daughter who is his pega developer. He has another daughter who has a special needs child with heart issues. Has depends that he wears but at times tends to takes it off or he will have accidents because he waits too long to go. No chest pains, dizziness, or SOB. No choking episodes for some time. Was unable to complete the swallow test because pt was not able to cooperate with the procedure. Unsure what triggers these episodes. Daughter is watching the foods that he is eating and what might be triggering the choking episodes. Edema: benny legs; stable with Lasix 20 mg daily. Mild Dementia: Taking Namenda 5 mg 1 pill BID. Pt has had evaluation by Geriatrics Dr. Crow in the past. Daughter states that the testing was only partially completed which pt daughter feels does not warrant an accurate or conclusive dx. Daughter feels the dementia has progressed beyond mild. Daughter feels she is needing more assistance with caring for him, feels she needs some Home Health care and would prefer a male nurse to help with him. He is still walking with the dogs but is not allowed to walk on his own any longer as he has been walking down the middle of the road. Pt does not drive, he voluntarily gave that up. Daughter needs someone who can stay with him while she goes to her appointments, may not need someone there every day. Her nephew was helping to watch him when she needed to leave the home but his job does not allow him to be able to do this anymore. She states that he will walk out the door with the dog when she is in the shower or she states he has locked her out of the home at times when she is doing outdoor work. Past medical history, appointments, medications, allergies reviewed. Previous Medical History No past medical history on file. Previous Surgical History PAST SURGICAL HISTORY Procedure Laterality Date COLONOSCOPY N/A 02/22/2018 Dr. Kaye, [facility] EGD N/A 02/22/2018 Dr. Kaye at [facility] HERNIA REPAIR HX N/A 02/[address] Kaye PAST SURGICAL HISTORY OF 01/2023 Hx of b/l cataract surgery SKIN LESION Left Left pinna, removed. Family History FAMILY HISTORY Problem Relation Age of Onset other (myocardial infarction) Mother 44 COPD Father other (pneumonia) Father 80 Patient Allergies ALLERGIES No Known Allergies Current Medications Current Outpatient Medications on File Prior to Visit Medication Sig furosemide (LASIX) 20 mg tablet Take 1 tablet by mouth once daily. memantine (NAMENDA) 5 mg tablet Take 1 tablet by mouth two times a day. cyanocobalamin (VITAMIN B-12) 1,000 mcg tab Take 1 tablet by mouth two times a day. No current facility-administere d medications on file prior to visit. Social History Social History Tobacco Use Smoking status: Former Current packs/day: 0.75 Average packs/day: 0.8 packs/day for 25.0 years (18.8 ttl pk-yrs) Types: Cigarettes Smokeless tobacco: Never Tobacco comments: quit 30 years ago Vaping Use Vaping status: Never Used Substance Use Topics Alcohol use: Yes Drug use: Never EXAM: BP 128/74 Pulse 80 Resp 14 Wt 78.6 kg (173 lb 4.5 oz) BMI 30.21 kg/m? General Appearance: Well appearing, alert, in no acute distress, well-hydrated, well nourished.. Lungs: Lungs clear to auscultation. No wheezing, rhonchi, rales.. Heart: RRR without murmur, gallop, or rubs. No ectopy. Extremities: mild edema to both ankles. Health Maintenance List Shingrix Vaccine(1 of 2) Never done RSV Vaccine(1 - 1-dose 75+ series) Never done Advance Directive Discussion Never done Covid-19 Vaccine( season) due on 11/05/2024 Diabetes Screening due on 08/16/2027 DTaP,Tdap,Td Vaccine(2 - Td or Tdap) due on 09/09/2031 Influenza Vaccine Completed Pneumococcal Vaccine: 50+ Completed Data reviewed None ASSESSMENT/PLAN: 1. Moderate dementia, unspecified dementia type, unspecified whether behavioral, psychotic, or mood disturbance or anxiety (HCC) - ICD9: 294.20, ICD10: F03.B0 (primary diagnosis) Worsening, needing more care Continue with Namenda BID Daughter will be looking into Home Health Options 2. Need for vaccination - ICD9: V05.9, ICD10: Z23 Covid vaccine 3. Vitamin B12 deficiency - ICD9: 266.2, ICD10: E53.8 Continue current medications. 4. Bilateral leg edema - ICD9: 782.3, ICD10: R60.0 Contr (more content not included)... Normal [facility] XR ESOPHAGRAMon 10-05-2024 XR ESOPHAGRAM * * *Final Report* * * DATE OF EXAM: Oct 05 2024 9:55AM TING 5378 - XR ESOPHAGRAM / PROCEDURE REASON: R13.19-Esophageal dysphagia * * * * Physician Interpretation * * * * XR ESOPHAGRAM INDICATION: Esophageal dysphagia TECHNIQUE: A biphasic study was performed using gas crystals with thick barium followed by thin barium. Fluoroscopic Radiation Summary: Plane A, Air Kerma: 36.2 mGy Dose Area Product (DAP): 9945.8 mGy*cm2 Fluoro time: 0:24 min:sec FINDINGS: The examination is limited as the patient had difficulty following directions. The patient swallowed barium from a cup without much difficulty. Esophageal peristalsis and distensibility is unremarkable. Contrast reaches the stomach. There is a small sliding hiatal hernia. Small diverticulum in the 3rd portion of the duodenum. No aspiration was seen. IMPRESSION: Small hiatal hernia. Copying Machine Repairer: [email or web address] Transcribe Date/Time: Oct 05 2024 10:03A Dictated by : BELKIS MARCANO MD This examination was interpreted and the report reviewed and electronically signed by: BELKIS MARCANO MD on Oct 05 2024 10:08AM EST [id number] CN Normal [facility] XR Esophagus Views Rhianna Evans 10-05-2024 IMPRESSION: Small hiatal hernia. Copying Machine Repairer: [email or web address] Transcribe Date/Time: Oct 05 2024 10:03A Dictated by : BELKIS MARCANO MD This examination was interpreted and the report reviewed and electronically signed by: BELKIS MARCANO MD on Oct 05 2024 10:08AM EST [facility] * * *Final Report* * * DATE OF EXAM: Oct 05 2024 9:55AM MDX 5378 - XR ESOPHAGRAM / PROCEDURE REASON: R13.19-Esophageal dysphagia * * * * Physician Interpretation * * * * XR ESOPHAGRAM INDICATION: Esophageal dysphagia TECHNIQUE: A biphasic study was performed using gas crystals with thick barium followed by thin barium. Fluoroscopic Radiation Summary: Plane A, Air Kerma: 36.2 mGy Dose Area Product (DAP): 9945.8 mGy*cm2 Fluoro time: 0:24 min:sec FINDINGS: The examination is limited as the patient had difficulty following directions. The patient swallowed barium from a cup without much difficulty. Esophageal peristalsis and distensibility is unremarkable. Contrast reaches the stomach. There is a small sliding hiatal hernia. Small diverticulum in the 3rd portion of the duodenum. No aspiration was seen. [facility] Provider, [facility] [place] - 10/05/2024 * * *Final Report* * * DATE OF EXAM: Oct 05 2024 9:55AM MDX 5378 - XR ESOPHAGRAM / PROCEDURE REASON: R13.19-Esophageal dysphagia * * * * Physician Interpretation * * * * XR ESOPHAGRAM INDICATION: Esophageal dysphagia TECHNIQUE: A biphasic study was performed using gas crystals with thick barium followed by thin barium. Fluoroscopic Radiation Summary: Plane A, Air Kerma: 36.2 mGy Dose Area Product (DAP): 9945.8 mGy*cm2 Fluoro time: 0:24 min:sec FINDINGS: The examination is limited as the patient had difficulty following directions. The patient swallowed barium from a cup without much difficulty. Esophageal peristalsis and distensibility is unremarkable. Contrast reaches the stomach. There is a small sliding hiatal hernia. Small diverticulum in the 3rd portion of the duodenum. No aspiration was seen. IMPRESSION IMPRESSION: Small hiatal hernia. Copying Machine Repairer: [email or web address] Transcribe Date/Time: Oct 05 2024 10:03A Dictated by : BELKIS MARCANO MD This examination was interpreted and the report reviewed and electronically signed by: BELKIS MARCANO MD on Oct 05 2024 10:08AM EST [facility] Radiology Study observation (narrative) Darnell freeman [facility] XR Esophagus Views W david crystal POOrdered By: [facility] Provider on 10-05-2024 [facility] CNOVon 08-21-2024 CNOV Office Visit (FAMPWS) MELVIN RIDDLE ([id number]) 1940 M Date Time Provider Department 08/21/24 1:40 PM [facility] During your visit today, we recorded the following information about you: Pulse Respiration Blood pressure Weight 92/minute 20/minute 130/76 80.7 kg Jacquelin Spaulding MD 08/21/2024 2:05 PM Signed Chief Complaint Patient presents with: F/U 1 month HPI Melvin Guardado Venkatesh is a 84 year old male who presents here today for a 1 month follow up. Pt here today with his daughter for a 1 month follow up. At last visit pt's daughter noted that when pt is eating it sounds like he's gagging or choking on his food. Denies episodes getting any worse or better, since last visit.Pt was ordered XR esophagram, this is currently scheduled in September. Edema - Chronic intermittent b/l lower leg and feet swelling. Daughter states that this will occur a couple times per year in his right leg, with occasional in his left leg. Has been seen by Podiatry who recommended a circulation test, but this was not completed. Pt was started on Lasix 20 mg once daily. They have completed the 30 days of prescription and f/u in office to review improvement. Daughter notes that edema has improved but continues to have some edema. Edema in lower legs R>L. Some discoloration in right lower leg. Vascular testing was ordered and completed on 08/17/24. 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 Left side normal. Daughter has questions about [facility] use of Lasix and what are possible issues with [facility] use of Lasix if any. Noted darker colored urine, drinking less beer at previous visit. CMP was ordered. Past medical history, appointments, medications, allergies reviewed. Previous Medical History No past medical history on file. Previous Surgical History PAST SURGICAL HISTORY Procedure Laterality Date COLONOSCOPY N/A 02/22/2018 Dr. Kaye, [facility] EGD N/A 02/22/2018 Dr. Kaye at [facility] HERNIA REPAIR HX N/A 02/[address] Kaye PAST SURGICAL HISTORY OF 01/2023 Hx of b/l cataract surgery SKIN LESION Left Left pinna, removed. Family History FAMILY HISTORY Problem Relation Age of Onset other (myocardial infarction) Mother 44 COPD Father other (pneumonia) Father 80 Patient Allergies ALLERGIES No Known Allergies Current Medications Current Outpatient Medications on File Prior to Visit Medication Sig furosemide (LASIX) 20 mg tablet Take 1 tablet by mouth once daily. memantine (NAMENDA) 5 mg tablet Take 1 tablet by mouth two times a day. cyanocobalamin (VITAMIN B-12) 1,000 mcg tab Take 1 tablet by mouth two times a day. No current facility-administere d medications on file prior to visit. Social History Social History Tobacco Use Smoking status: Former Current packs/day: 0.75 Average packs/day: 0.8 packs/day for 25.0 years (18.8 ttl pk-yrs) Types: Cigarettes Smokeless tobacco: Never Tobacco comments: quit 30 years ago Vaping Use Vaping status: Never Used Substance Use Topics Alcohol use: Yes Drug use: Never EXAM: BP 130/76 (BP Site: Left Arm, BP Position: Sitting, BP Cuff Size: Regular Adult) Pulse 92 Resp 20 Wt 80.7 kg (177 lb 14.6 oz) BMI 31.02 kg/m? General Appearance: Well appearing, alert, in no acute distress, well-hydrated, well nourished. and Overweight. Lungs: Lungs clear to auscultation. No wheezing, rhonchi, rales.. Heart: RRR without murmur, gallop, or rubs. No ectopy. Extremities: Edema: Minimal lower leg edema noted R>L with some skin discoloration noted on right lower leg.. Health Maintenance List Spirometry Never done Shingrix Vaccine(1 of 2) Never done RSV Vaccine(1 - 1-dose 75+ series) Never done Advance Directive Discussion Never done Covid-19 Vaccine( season) due on 11/05/2024 Diabetes Screening due on 08/16/2027 DTaP,Tdap,Td Vaccine(2 - Td or Tdap) due on 09/09/2031 Influenza Vaccine Completed Pneumococcal Vaccine: 50+ Completed Data reviewed Appointment on 08/16/2024 Component Date Value Protein, Total 08/16/2024 7.2 Albumin 08/16/2024 4.6 Calcium, Total 08/16/2024 9.4 Bilirubin, Total 08/16/2024 0.5 Alkaline Phosphatase 08/16/2024 77 AST 08/16/2024 17 ALT 08/16/2024 24 Glucose 08/16/2024 118 (H) BUN 08/16/2024 19 Creatinine 08/16/2024 1.00 Sodium 08/16/2024 142 Potassium 08/16/2024 4.1 Chloride 08/16/2024 103 CO2 08/16/2024 27 Anion Gap 08/16/2024 12 Estimated Glomerular Pablo* 08/16/2024 74 ASSESSMENT/PLAN: 1. Bilateral leg edema - ICD9: 782.3, ICD10: R60.0 (primary diagnosis) - Continue low dosage of Lasix 20 mg once daily - Continue walking 2. Small vessel disease (HCC) - ICD9: 443.9, ICD10: I73.9 - Use Lasix 3. Episode of gagging - ICD9: 478.29, ICD10: R19.8 - Continue to complete XR as scheduled - Follow up as sched (more content not included)... Normal [facility] PVR LEG BENNY VAS LABon 2024 PVR LEG BENNY VAS LAB Non-Invasive Vascular Laboratory [facility] Lower Extremity Arterial Physiology Study Bilateral/Complete Date of service/time: 08/17/2024 12:04:32 PM Name: MELVIN RIDDLE Date of : 1940 Age: 84 years Gender: M Clinical Indication Leg swelling, temperature difference. TECHNIQUE -------- An arterial physiological examination was performed, including measurement of blood pressures using continuous wave Doppler and recording of plethysmographic with or without Doppler waveforms at the below-mentioned limb segments. FINDINGS -------- RIGHT SIDE AT REST Right Doppler Waveforms Dorsalis pedis: Multiphasic. Post tibial: Multiphasic. Right Pressures Brachial: 124 mmHg Ankle dorsalis pedis: 162 mmHg SERGIO: 1.26 Ankle posterior tibial: 168 mmHg SERGIO: 1.30 Digit: 62 mmHg Right PVR Waveforms High thigh: Normal. Low thigh: Normal. Calf: Normal. Ankle: Normal. Transmetatarsal: Normal. Digit: Mildly dampened. LEFT SIDE AT REST Left Doppler Waveforms Dorsalis pedis: Multiphasic. Post tibial: Multiphasic. Left Pressures Brachial: 129 mmHg Ankle dorsalis pedis: 154 mmHg SERGIO: 1.19 Ankle posterior tibial: 159 mmHg SERGIO: 1.23 Digit: 102 mmHg Left PVR Waveforms High thigh: Normal. Low thigh: Normal. Calf: Normal. Ankle: Normal. Transmetatarsal: Normal. Digit: Normal. IMPRESSION RIGHT SIDE Resting right ankle brachial index: 1.30 Right toe brachial index: 0.48 Normal ankle brachial index at rest in the right leg. Abnormal toe brachial index at rest is evidence of peripheral artery disease. Right ankle: Normal at rest. Right small vessel disease. LEFT SIDE Resting left ankle brachial index: 1.23 Left toe brachial index: 0.79 Normal ankle brachial index at rest in the left leg. Normal toe brachial index at rest in the left leg. Left ankle: Normal at rest. Technologist: Katiana Woody RVT, MARLONNM Ordering physician: JACQUELIN SPAULDING Interpreting physician: KEILA Moreno DO Final CC [employer] Medical Image : [id number] DynamicsSISUID See Link below for Image Normal [facility] Massimo 08-16-2024 CNPN Telephone (4CQ) MELVIN RIDDLE ([id number]) 1940 M Date Time Provider Department 08/16/24 JACQUELIN SPAULDING 4CQ During your visit today, we recorded the following information about you: Ned Barry 08/16/2024 2:12 PM Signed Patients contact ([place]) called asking if you wanted to postpone Melvin's upcoming appointment on 08/21? He is not having the Vascular test done until 08/24. Please advise, Thank you Allergies As of Date: 08/16/2024 (No Known Allergies) Date Reviewed: 07/14/2024 Reviewed by: Chelo Graham MA - Fully Assessed Reason for Visit: Appointment [186] Prescriptions as of 08/17/2024 - furosemide (LASIX) 20 mg tablet Take 1 tablet by mouth once daily. - memantine (NAMENDA) 5 mg tablet Take 1 tablet by mouth two times a day. - cyanocobalamin (VITAMIN B-12) 1,000 mcg tab Take 1 tablet by mouth two times a day. Meds Comments as of 04/15/2023: Dynamic brain health supplement Oregamax immunity support supplement B12 1,000 mcg 1 pill BID. Problem List As Of Date 08/16/2024 Noted Resolved Pulmonary emphysema (HCC) [J43.9] 10/11/2017 07/06/2023 Mild dementia (HCC) [F03.A0] 10/06/2022 Vitamin B12 deficiency [E53.8] 10/06/2022 Encounter Status:Closed by NED BARRY on 08/16/24 Normal [facility] Comprehensive metabolic 2000 panelon 08-16-2024 Albumin [Mass/Vol] 4.6 g/dL Normal 3.9-4.[address] [facility] Comment on above: Order Comment: Speci men Type: BLOOD SPECIMENOrdering Facility: [facility] Address: [address] [place] [address] Performed By: #### 2 4323-8 ####[place] [facility] [id number] [place] [address] [place] ALP [Catalytic activity/Vol] 77 U/L Normal 38-113 [facility] Comment on above: Order Comment: Speci men Type: BLOOD SPECIMENOrdering Facility: [facility] Address: [address] [place] [address] Performed By: #### 2 4323-8 ####[place] [facility] [id number] [place] [address] [place] ALT [Catalytic activity/Vol] 24 U/L Normal 10-54 [facility] Comment on above: Order Comment: Speci men Type: BLOOD SPECIMENOrdering Facility: [facility] Address: [address] [place] [address] Performed By: #### 2 4323-8 ####[place] [facility] [id number] [place] [address] [place] Anion gap [Moles/Vol] 12 mmol/L Normal 8-15 [facility] Comment on above: Order Comment: Speci men Type: BLOOD SPECIMENOrdering Facility: [facility] Address: [address] [place] [address] Performed By: #### 2 4323-8 ####[place] [facility] [id number] [place] [address] [place] AST [Catalytic activity/Vol] 17 U/L Normal 14-40 [facility] Comment on above: Order Comment: Speci men Type: BLOOD SPECIMENOrdering Facility: [facility] Address: [address] [id number] Performed By: #### 2 4323-8 ####[facility] [facility] [id number] [place] [address] [place] Bilirubin [Mass/Vol] 0.5 mg/dL Normal 0.2-1.3 [facility] Comment on above: Order Comment: Speci men Type: BLOOD SPECIMENOrdering Facility: [facility] Address: [address] [place] [address] Performed By: #### 2 4323-8 ####[place] [facility] [id number] [place] [address] [place] Calcium [Mass/Vol] 9.4 mg/dL Normal 8.5-10.[address] [facility] Comment on above: Order Comment: Speci men Type: BLOOD SPECIMENOrdering Facility: [facility] Address: [address] [place] [address] Performed By: #### 2 4323-8 ####[place] [facility] [id number] [place] [address] [place] Chloride [Moles/Vol] 103 mmol/L Normal 98-107 [facility] Comment on above: Order Comment: Speci men Type: BLOOD SPECIMENOrdering Facility: [facility] Address: [address] [place] [address] Performed By: #### 2 4323-8 ####[facility] [facility] [id number] [place] [address] [place] CO2 [Moles/Vol] 27 mmol/L Normal 22-30 [facility] Comment on above: Order Comment: Speci men Type: BLOOD SPECIMENOrdering Facility: [facility] Address: [address] [place], [place] [id number] Performed By: #### 2 4323-8 ####[facility] [facility] [id number] [place] [address] [place] Creatinine [Mass/Vol] 1.00 mg/dL Normal 0.73-1.22 [facility] Comment on above: Order Comment: Paula aceves Type: BLOOD SPECIMENOrdering Facility: [facility] Address: [address] [place] [address] Performed By: #### 2 4323-8 ####[facility] [facility] [id number] [place] [address] [place] Creatinine and Glomerular filtration rate.predicted panel (S/P/Bld) 74 mL/min/1.73m??? Normal >=60 [facility] Comment on above: Order Comment: Paula aceves Type: BLOOD SPECIMENOrdering Facility: [facility] Address: [address] [place] [address] Result Comment: Lisa mated Glomerular Filtration Rate (eGFR) is calculated using the 2020 CKD-EPI creatinine equation. This equation utilizes serum creatinine, sex, and age as parameters. The creatinine assay has traceable calibration to isotope dilution-mass spectrometry. Refer to KDIGO guidelines for clinical interpretation. In patients with unstable renal function, e.g. those with acute kidney injury, the eGFR may not accurately reflect actual GFR. Performed By: #### 2 4323-8 ####[facility] [facility] [id number] [place] [address] [place] Glucose [Mass/Vol] 118 mg/dL High 74-[address] [facility] Comment on above: Order Comment: Paula aceves Type: BLOOD SPECIMENOrdering Facility: [facility] Address: [address] [place] [address] Result Comment: The [place] Diabetes Association (ADA) provides guidance for cutoff values for fasting glucose and random glucose. The ADA defines fasting as no caloric intake for at least 8 hours. Fasting plasma glucose results between 100 to 125 mg/dL indicate increased risk for diabetes (prediabetes). Fasting plasma glucose results greater than or equal to 126 mg/dL meet the criteria for diagnosis of diabetes. In the absence of unequivocal hyperglycemia, results should be confirmed by repeat testing. In a patient with classic symptoms of hyperglycemia or hyperglycemic crisis, random plasma glucose results greater than or equal to 200 mg/dL meet the criteria for diagnosis of diabetes. Reference: Standards of Medical Care in Diabetes 2016, [place] Diabetes Association. Diabetes Care. 2016.39(Suppl 1). Performed By: #### 2 4323-8 ####[facility] [facility] [id number] [address] [address] [place] Potassium [Moles/Vol] 4.1 mmol/L Normal 3.7-5.1 [facility] Comment on above: Order Comment: Speci men Type: BLOOD SPECIMENOrdering Facility: [facility] Address: [address] [place] [address] Performed By: #### 2 4323-8 ####[place] [facility] [id number] [place] [address] [place] Protein [Mass/Vol] 7.2 g/dL Normal 6.3-8.[address] [facility] Comment on above: Order Comment: Speci men Type: BLOOD SPECIMENOrdering Facility: [facility] Address: [address] [place] [address] Performed By: #### 2 4323-8 ####[place] [facility] [id number] [place] [address] [place] Sodium [Moles/Vol] 142 mmol/L Normal 136-[address] [facility] Comment on above: Order Comment: Speci men Type: BLOOD SPECIMENOrdering Facility: [facility] Address: [address] [place] [address] Performed By: #### 2 4323-8 ####[facility] [facility] [id number] [place] [id number] [place] Urea nitrogen [Mass/Vol] 19 mg/dL Normal 9-24 [facility] Comment on above: Order Comment: Speci men Type: BLOOD SPECIMENOrdering Facility: [facility] Address: [address] [id number] Performed By: #### 2 4323-8 ####[facility] [facility] [id number] [place] [address] [address] [place] CNOVon 07-14-2024 CNOV Office Visit (FAMPWS) MELVIN RIDDLE ([id number]) 1940 M Date Time Provider Department 07/14/24 1:20 PM [facility] During your visit today, we recorded the following information about you: Pulse Respiration Blood pressure Weight 74/minute 16/minute 130/80 81.3 kg Jacquelin Spaulding MD 07/14/2024 3:31 PM Signed Chief Complaint Patient presents with: gagging issues: Some trouble swallowing Edema: Bilateral feet and legs HPI Melvin Riddle is a 84 year old male who presents here today for discussion of swallow test. Pt's daughter contacted the office on 07/10/24 with an update about patient. Daughter states that when pt is eating it sounds likes he's choking or gagging. It is not getting worse but not getting any better. He has no teeth and refuses to wear his dentures. She accomodates his diet, but still tries to add in the harder foods by cutting them into smaller pieces. He's raspy and brings up a lot phlegm but lungs have always been clear when evaluated. Per Daughter, pt has been told he would benefit from a swallow study. He had an episode last year of ending up in ER in [place] due to food stuck in esophagus. Passed spontaneously. No EGD done.. Edema: Bilateral lower legs and feet that has been going on for a long time. Has been seen by reclamation engineer who suggested circulation test. Does not improve over night. Right foot feels colder than the left per daughter. Daughter states his urine is dark but not tea dark. He is drinking less beer by his choice. Dementia stable on Namenda Past medical history, appointments, medications, allergies reviewed. Previous Medical History No past medical history on file. Previous Surgical History PAST SURGICAL HISTORY Procedure Laterality Date COLONOSCOPY N/A 02/22/2018 Dr. Kaye, [facility] EGD N/A 02/22/2018 Dr. Kaye at [facility] HERNIA REPAIR HX N/A 02/[address] Kaye PAST SURGICAL HISTORY OF 01/2023 Hx of b/l cataract surgery SKIN LESION Left Left pinna, removed. Family History FAMILY HISTORY Problem Relation Age of Onset other (myocardial infarction) Mother 44 COPD Father other (pneumonia) Father 80 Patient Allergies ALLERGIES No Known Allergies Current Medications Current Outpatient Medications on File Prior to Visit Medication Sig memantine (NAMENDA) 5 mg tablet Take 1 tablet by mouth two times a day. cyanocobalamin (VITAMIN B-12) 1,000 mcg tab Take 1 tablet by mouth two times a day. No current facility-administere d medications on file prior to visit. Social History Social History Tobacco Use Smoking status: Former Current packs/day: 0.75 Average packs/day: 0.8 packs/day for 25.0 years (18.8 ttl pk-yrs) Types: Cigarettes Smokeless tobacco: Never Tobacco comments: quit 30 years ago Vaping Use Vaping status: Never Used Substance Use Topics Alcohol use: Yes Drug use: Never EXAM: BP 130/80 Pulse 74 Resp 16 Wt 81.3 kg (179 lb 3.7 oz) BMI 31.25 kg/m? General Appearance: Well appearing, alert, in no acute distress, well-hydrated, well nourished.. Lungs: Lungs clear to auscultation. No wheezing, rhonchi, rales.. Heart: RRR without murmur, gallop, or rubs. No ectopy. Extremities: Edema: bilateral ankle and feet, Right worse Health Maintenance List Spirometry Never done Shingrix Vaccine(1 of 2) Never done RSV Vaccine(1 - 1-dose 75+ series) Never done Advance Directive Discussion Never done Diabetes Screening due on 11/04/2026 DTaP,Tdap,Td Vaccine(2 - Td or Tdap) due on 09/09/2031 Influenza Vaccine Completed Covid-19 Vaccine Completed Pneumococcal Vaccine: 50+ Completed Data reviewed None ASSESSMENT/PLAN: 1. Bilateral leg edema - ICD9: 782.3, ICD10: R60.0 (primary diagnosis) Start Lasix 20 mg daily in AM PVR testing ordered 2. Mild dementia without behavioral disturbance, psychotic disturbance, mood disturbance, or anxiety, unspecified dementia type (HCC) - ICD9: 294.10, ICD10: F03.A0 Stable Continue current medications. 3. Episode of gagging - ICD9: 478.29, ICD10: R19.8 Swallow study ordered Follow up in 1 month. Labs in 1 month. I agree with the Chief Complaint, ROS, and Past Histories independently gathered by the clinical residential support specialist and the remaining scribed note accurately describes my personal service to the patient. Medical Decision Making: Problems: Moderate: New problem with uncertain prognosis Data: Unique test(s) ordered: 3+ Medical Decision Making Level: 4 - Moderate Jacquelin Spaulding MD The documentation for this note was completed by Chelo Graham MA acting as scribe for Jacquelin Spaulding MD. July 14, 2024 1:15 PM. Chelo Graham MA Allergies As of Date: 07/14/2024 (No Known Allergies) Date Reviewed: 07/14/2024 Reviewed by: Chelo Graham MA - Fully Assessed Reason for Visit: (more content not included)... [facility]N Tele[facility] (FAMPWS) MELVIN RIDDLE ([id number]) 1940 M Date Time Provider Department 07/10/24 [facility]ULDING [facility] During your visit today, we recorded the following information about you: Adrienne Duvall, RN 07/10/2024 9:46 AM Signed Pts daughter calls in and reports Pt has been told before he would benefit from a swallow study, but he has never had one done. She states he does sound like he is choking when he is eating. She reports Pt has no teeth and refuses to wear his dentures. She states she accomodates his diet, but states she still goes for the harder food, she just cuts it into smaller pieces. She states he sounds like he has something in his lungs, but 'they' have checked and found nothing. I asked what he has had done to check and she didn't go into detail. She reports Pt sounds raspy and brings up phlegm. Allergies As of Date: 07/10/2024 (No Known Allergies) Date Reviewed: 05/08/2024 Reviewed by: Flower Narvaez MA - Fully Assessed Reason for Visit: Appointment [186] Prescriptions as of 07/10/2024 - memantine (NAMENDA) 5 mg tablet Take 1 tablet by mouth two times a day. - cyanocobalamin (VITAMIN B-12) 1,000 mcg tab Take 1 tablet by mouth two times a day. Meds Comments as of 04/15/2023: Dynamic brain health supplement Oregamax immunity support supplement B12 1,000 mcg 1 pill BID. Problem List As Of Date 07/10/2024 Noted Resolved Pulmonary emphysema (HCC) [J43.9] 10/11/2017 07/06/2023 Mild dementia (HCC) [F03.A0] 10/06/2022 Vitamin B12 deficiency [E53.8] 10/06/2022 Encounter Status:Closed by ADRIENNE DUVALL on 07/10/24 [facility] 05-08-2024 CNOV Office Visit (FAMPWS) VENKATESHMELVIN Manzano ([id number]) 1940 M Date Time Provider Department 05/08/24 1:40 PM JACQUELIN SPAULDING During your visit today, we recorded the following information about you: Pulse Respiration Blood pressure Weight 84/minute 18/minute 120/68 76.1 kg Height 1.613 m Jacquelin Spaulding MD 06/01/2024 2:45 PM Addendum Melvin Riddle is a 83 year old male here for a Medicare wellness visit. Pt here today with daughter, [place]. GI/Uro - Denies any stomach, bowel or urinary issues. Gets up a couple times per night to urinate. Cardio - Denies any chest pain, sob or dizziness. Diet/Exercise - Admits to watching diet some not completely, but daughter does try to watch diet. Has to eat gluten free. Exercises by walking the dog daily almost a mile. Did have to put one dog down. Daughter has an nicole to track him. On average he walks for 53 minutes. Memory - Pt states that memory is okay. Daughter states that it's on par for what's going on and but going a gradual decline. Overall his mood and demeanor are fine, doesn't get agitated. Does forget to tell her at times when he's taking the dog for a walk, but the dog is chipped. Takes Namenda 5 mg 1 tab po bid and B12 1,000 mg once daily. See Health Risk Assessment below on pt needs at home. Alcohol - Trying to work on cutting back. Down to 6 alcoholic beverages per day. Was being seen by Riya Petit AND Tanisha for a toe issue per daughter. Had ingrown toenail that has been taken care of and legs were looked at during visit. HM - Agreeable to Flu and Covid vaccine. Discussed with pt about Shingles/RSV vaccine checking with insurance. Medicare Health Risk Assessment General Health Very good Exercise: Minutes/Day 60 min Exercise: Days/Week 7 days Alcohol: Daily Use 4 or more times a week Alcohol: Drinks/Day 5 or 6 Alcohol: 6 or more drinks Daily or almost daily Feel off balance No Concerns: Teeth/Dentures No Concerns: Sexual function No Troubled by feelings None of the above Frequency: Eating healthy diet Nearly every day ADLs requiring help Grocery shopping; Cooking; Housework; Bathing; Grooming; Handling finances; Taking medications; Driving; Using the telephone Safety precautions in home/vehicle Yes Smoke, vape, chews tobacco No Difficulty hearing Yes (Is supposed to wear hearing aids, but pt doesn't want too) Difficulty seeing No Current Providers Specialists: I have reviewed specialist-related care of the patient in the medical record. Current care team: Patient Care Team: Jacquelin Spaulding MD as PCP - General (Family Medicine) [facility] - Podiatry, unable to recall Provider name. [place] - Ophthalmology [place] - Audiology/Hearing Aids. Medical/Family history review Reviewed and updated problem list, medical/surgical/fam stacie/social history, medications, and allergies. Opioid use review Opioid Medications (last 90 days) No data to display Anxiety/Depression screening Recommendation: no further intervention at this time Cognitive screening Cognitive screening reviewed and Recommended referral for further evaluation (score 0-2). Pt got a 0/5. Functional Observation Was the patient's Timed Up AND Go test unsteady or >= 12 seconds? No Advance Care Planning Surrogate decision maker and/or advance care plan documented Physical Exam Constitutional: Appearance: Normal appearance. Cardiovascular: Pulses: Normal pulses. Heart sounds: Normal heart sounds. No murmur heard. No gallop. Pulmonary: Effort: Pulmonary effort is normal. No respiratory distress. Breath sounds: Normal breath sounds. No wheezing, rhonchi or rales. Musculoskeletal: General: No swelling. Comments: B/L lower legs varicose veins noted Neurological: Mental Status: He is alert. Mental status is at baseline. Psychiatric: Mood and Affect: Mood normal. Measurements BP 120/68 (BP Site: Left Arm, BP Position: Sitting, BP Cuff Size: Regular Adult) Pulse 84 Resp 18 Ht 161.3 cm (5' 3.5) Wt 76.1 kg (167 lb 12.3 oz) BMI 29.25 kg/m? Vision Screening: Follows with optometry/ophthalmol ogy Assessment/Plan Medicare annual wellness visit, subsequent (Z00.00) - Counseled on healthy diet and regular exercise - Fall avoidance information provided - Personalized prevention plan provided - Counseled patient on alcohol intake and associated health risks 2. Mild dementia without behavioral disturbance, psychotic disturbance, mood disturbance, or anxiety, unspecified dementia type (HCC) - ICD9: 294.10, ICD10: F03.A0 - Overall stable, some decline noted by daughter. - Continue current medication regimen. 3. Vitamin B12 deficiency - ICD9: 266.2, ICD10: E53.8 - Continue current medication regimen. 4. Regular alcohol consumption - ICD9: V69.8, ICD10: Z78.9 - Higher than recommended use, (more content not included)... Normal [facility] CNOVon 02-03-2024 CNOV Office Visit (FAMPWS) MELVIN RIDDLE ([id number]) 1940 M Date Time Provider Department 02/03/24 10:00 AM [facility] During your visit today, we recorded the following information about you: Pulse Respiration Blood pressure Weight 76/minute 18/minute 118/78 75.1 kg Jacquelin Spaulding MD 02/03/2024 10:44 AM Signed Chief Complaint Patient presents with: Hospital Follow Up HPI Melvin Riddle is a 83 year old male who presents here today for an ED follow up. Pt was seen at [facility] ED on 01/28/24 due to a fall. Pt presented to on 01/28/24 with family who found pt on the floor in the bathroom. Stated the fall occurred over night. Unsure of the mechanism of the fall. Did tell the Provider that pt had a few beers the prior evening. Due to the pt's age, alcohol ingestion Provider felt it warranted a CT of the head; CT was normal in ER. Pt here today with his daughter, [place] for an ED f/u. Pt here to just follow up. Denies any falls since his the ED. Believe he got tripped up on a towel rack in the bathroom, which has now been removed. At this time pt is doing fairly well. Has some lingering pain but improved since the fall. Rated pain in his back and left hip a 10 when in the ED. Today pain a 3-4/10 but intermittent. Is still able to get around and walk the dogs. Has not really taken anything other than Tylenol periodically. Still slightly tender to touch on his left lower back and hip area. Does have skin tear on left upper arm that daughter has been caring for from fall. Has been using Coconut oil, feels the area is healing up nicely. [facility] ED: HPI - Fall History of Present Illness Chief Complaint: Fall HISTORY OF PRESENT ILLNESS: 83-year-old male presents with fall. Patient cannot endorse the symptoms on the fall. He lives with his daughter. Daughter states she heard him fall walker room he was conscious on his left side. She thinks he tripped over the threshold to be in his room in the hallway. Patient is typically alert and oriented to person and place but not initially to time. He is at his baseline mental status today per his daughter. He denies any headache, fever, chills MDM Narrative: Patient was initially hemodynamically stable, afebrile and nontoxic-appearing. Primary secondary trauma surveys concerning for intracranial, cervical spine, lumbar, left arm and left hip abnormality, anemia. Per patient's Patient's mental status at baseline. He had no lateralizing neurologic findingson initial exam. I considered the following differential diagnosis: Fracture dislocation or bony traumatic abnormality to the head, cervical spine, lumbar spine, left hip or left upper arm. I obtained imaging studies to further clarify if there are any traumatic injuries Initially treated the patient with 500 cc bolus for gentle rehydration. Also obtain labs given patient's unclear mechanism and poor baseline mental status to rule out etiology such as anemia, electrolyte disturbances, dehydration, ACS, arrhythmia. ALL IMAGES (IF OBTAINED) HAVE BEEN PERSONALLY REVIEWED AND INTERPRETED BY MYSELF. EKG with normal sinus rhythm (no arrhythmia), left ax deviation, normal intervals, no STEMI, similar to prior EKG from April 2023 CBC with no leukocytosis, no anemia, thrombo-cytopenia High-sensitivity troponin is negative, no evidence of myocardial ischemia I have personally reviewed the patient's chest x-ray. Chest x-ray is unremarkable for pulmonary edema, pneumothorax, pneumonia or focal cardiopulmonary abnormality. X-ray of the left hip and humerus were read reviewed myself shows no evidence ofobvious bony abnormality CT scan of the head, cervical spine lumbar spine are negative for acute traumatic injury Tertiary trauma exam without new injury. Patient is at his baseline mental status. He is appropriate discharge home with Tylenol ibuprofen instructions, fall risk precautions and fall prevention home instructions. Strict return precautions were discussed The patient and/or family, caregivers express understanding. The patient and/orfamily, caregivers agrees with the plan. Shared decision making: I will have a discussion with the patient and or visitors regarding risk/benefits of further testing or admission. They will be made aware of of the risk/benefits inherent in this decision they will be given the opportunity to voice understanding. Total critical care time today provided was at least 0 minutes. This excludes separately billable procedures. Critical care time (if documented) is secondary to the patient having high probability of clinically significant/life threatening deterioration in the patient's condition which required my urgent intervention. Impression: 1. Fall 2. Left arm contusion 3. Lower back contusion Past medical history, appointments, medications, allerg (more content not included)... Normal [facility] 12 Lead EKGon 01-28-2024 12 Lead EKG [facility] Cardiovascular Services [address] [place] [address] 12 Lead EKG 01/28/24 1127 MR#: [id number] Acct: [id number] Name: MELVIN RIDDLE Debby Rep #: [id number] : 1940 83 From: Olivier De Jesus MD Attending Dr: Status: DEP ER Ordering Dr: Helder Aiken DO Date: 01/28/24 Location: ED Sex: M C Admitted: Test Reason : FALL Blood Pressure : / mmHG Vent. Rate : 074 BPM Atrial Rate : 074 BPM P-R Int : 172 ms QRS Dur : 082 ms QT Int : 382 ms P-R-T Axes : 049 006 012 degrees QTc Int : 424 ms Sinus rhythm with occasional Premature ventricular complexes Otherwise normal ECG Confirmed by Olivier De Jesus ([id number]), writer editor HANNAH PANDA ([id number]) on 01/31/2024 2:02:30 PM Referred By: BERNADINE Confirmed By:Olivier De Jesus 01/31/24 1402 Date Olivier De Jesus MD CC: Dr. Jacquelin Spaulding MD; Dr. Helder Aiken DO Signed Normal [facility] Brain/Head without Contrasto n 01-28-2024 Brain/Head without Contrast [facility] Imaging Services [address] [place] [address] Brain/Head without Contrast MR#: [id number] Acct: [id number] Name: MELVIN RIDDLE Debby Rep #: [id number] : 1940 M 83 From: Pepe duffy MD PCP: Dr. Jacquelin Spaulding MD Status: REG ER Study: Brain/Head without Contrast Date of Exam: 08/21 Exam# [id number] Ordering Dr: Helder Aiken DO [id number] STUDY: CT BRAIN WITHOUT CONTRAST REASON FOR EXAM: Male, 83 years old. Fall, head trauma RADIATION DOSAGE (If Supplied By Facility): CTDIvol = ( 44.99 ) mGy, DLP = ( 880.47 ) mGycm TECHNIQUE: Transaxial CT imaging of the brain was performed without administration of intravenous contrast material. Individualized dose optimization techniques were used for this CT. COMPARISON: Comparison is made with prior study dated May 22, 2023. FINDINGS: Normal soft tissue structures. Stable 1.9 cm x 0.9 cm bony density along the anterior lateral aspect of the inner table of the left frontal bone suggestive of possible meningioma. There is moderate cerebral atrophy with widening of the extra-axial spaces and ventricular dilatation. There are areas of decreased attenuation within the white matter tracts of the supratentorial brain, consistent with microvascular disease changes. Normal basal ganglia and thalami. Normal brainstem. Normal cerebellum. Atherosclerotic calcification of the cavernous portions of the internal carotid arteries bilaterally. There is no intracranial hemorrhage. There are no findings of an acute ischemic infarction. Normal visualized paranasal sinuses. CT/Brain/Head without Contrast IMPRESSION: Chronic involutional changes of the brain. Stable bony density along the anterolateral aspect of the inner table of the left frontal bone suggestive of a calcified meningioma. Electronically Signed: Pepe Bunn MD at 11:59 EDT , CC: Dr. Jacquelin Spaulding MD; Dr. Helder Aiken DO Copying Machine Repairer: Signed Normal [facility] CBC W/Diff, Automatedon 08-0 2-2023 Absolute Lymph 1.31 X10 3/uL Normal 0.83-4.51 [facility] Comment on above: Performed By: #### L 100.0100, L501.4020, L500.4050 #### [facility] [address] [place], [address] Absolute Neut 5.5 X10 3/uL Normal 2.0-7.7 [facility] Comment on above: Performed By: #### L 100.0100, L501.4020, L500.4050 #### [facility] [address] [place], [address] Basophils/100 WBC (Bld) 0.3 % Normal 0-1 [facility] Comment on above: Performed By: #### L 100.0100, L501.4020, L500.4050 #### [facility] [address] [place], [address] Eosinophils/100 WBC (Bld) 0.8 % Normal 0-5 [facility] Comment on above: Performed By: #### L 100.0100, L501.4020, L500.4050 #### [facility] [address] [place], [address] Erythrocyte distribution width (RBC) [Ratio] 12.9 % Normal 11.6-14.6 [facility] Comment on above: Performed By: #### L 100.0100, L501.4020, L500.4050 #### [facility] [address] [place], [address] Hematocrit (Bld) [Volume fraction] 42.9 % Normal 40-54 [facility] Comment on above: Performed By: #### L 100.0100, L501.4020, L500.4050 #### [facility] [address] [place], [address] Hemoglobin (Bld) [Mass/Vol] 14.6 g/dL Normal 13.0-16.5 [facility] Comment on above: Performed By: #### L 100.0100, L501.4020, L500.4050 #### [facility] [address] [place], [address] IG% 0.400 Normal 0.0-0.9 [facility] Comment on above: Result Comment: IG% - Immature Granulocytes (promyelocytes, myelocytes and metamyelocytes) > 1% indicates that a LEFT SHIFT is Present. Performed By: #### L 100.0100, L501.4020, L500.4050 #### [facility] [address] [place], [address] Lymphocytes/100 WBC (Bld) 17.7 % Low 19-41 [facility] Comment on above: Performed By: #### L 100.0100, L501.4020, L500.4050 #### [facility] [address] [place], [address] MCH (RBC) [Entitic mass] 31.8 pg Normal 27.0-32.0 [facility] Comment on above: Performed By: #### L 100.0100, L501.4020, L500.4050 #### [facility] [address] [place], [address] MCHC (RBC) [Mass/Vol] 34.0 g/dL Normal 32-36 [facility] Comment on above: Performed By: #### L 100.0100, L501.4020, L500.4050 #### [facility] [address] [place], [address] MCV (RBC) [Entitic vol] 93.5 fL Normal 80-94 [facility] Comment on above: Performed By: #### L 100.0100, L501.4020, L500.4050 #### [facility] [address] [place], [address] Monocytes/100 WBC (Bld) 6.9 % Normal 0-10 [facility] Comment on above: Performed By: #### L 100.0100, L501.4020, L500.4050 #### [facility] [address] [place], [address] Neutrophils/100 WBC (Bld) 73.9 % High 47-70 [facility] Comment on above: Performed By: #### L 100.0100, L501.4020, L500.4050 #### [facility] [address] [place], [address] Nucleated RBC (Bld) [#/Vol] 0 10*3/uL Normal 0-5 [facility] Comment on above: Performed By: #### L 100.0100, L501.4020, L500.4050 #### [facility] [address] [place], [address] Platelet mean volume (Bld) [Entitic vol] 10.3 fL Normal 6.2-12.0 [facility] Comment on above: Performed By: #### L 100.0100, L501.4020, L500.4050 #### [facility] [address] [place], [address] Platelets (Bld) [#/Vol] 202 10*3/uL Normal 150-450 [facility] Comment on above: Performed By: #### L 100.0100, L501.4020, L500.4050 #### [facility] [address] [place], [address] RBC (Bld) [#/Vol] 4.59 10*6/uL Low 4.6-6.2 [facility] Comment on above: Performed By: #### L 100.0100, L501.4020, L500.4050 #### [facility] [address] [place], [address] RDW SD 43.8 fl Normal 35.1-43.9 [facility] Comment on above: Performed By: #### L 100.0100, L501.4020, L500.4050 #### [facility] [address] [place], [address] WBC (Bld) [#/Vol] 7.4 10*3/uL Normal 4.4-11.0 [facility] Comment on above: Performed By: #### L 100.0100, L501.4020, L500.4050 #### [facility] [address] [place], [address] CNOVon 01-28-2024 CNOV Office Visit (UCTR) MELVIN RIDDLE ([id number]) 1940 M Date Time Provider Department 01/28/24 9:45 AM GABRIELLE MONTEZ [facility] During your visit today, we recorded the following information about you: Temperature Pulse Respiration Blood pressure 97.4 degrees 72/minute 18/minute 132/77 Gabrielle Montez APRN.INSTALLATION SUPERINTENDENT 01/28/2024 10:07 AM Signed 83 year old female presents for fall and injuries. Occurred over night. Family at bedside and endorses that she found him on floor in bathroom. He did have a few beers yesterday evening. Unsure of exact mechanism of fall. Given age, and alcohol ingestion patient warrants a CT head Have referred to ED No charge Allergies As of Date: 01/28/2024 (No Known Allergies) Date Reviewed: 01/28/2024 Reviewed by: Sierra Zeng MA - Fully Assessed Reason for Visit: Fall [218] Cmt: L upper arm skin tear, bruising on bilateral arms x last night Primary Visit Diagnosis:Fall, initial encounter [W19.XXXA] Prescriptions as of 01/28/2024 - memantine (NAMENDA) 5 mg tablet Take 1 tablet by mouth two times a day. - cyanocobalamin (VITAMIN B-12) 1,000 mcg tab Take 1 tablet by mouth two times a day. Meds Comments as of 04/15/2023: Dynamic brain health supplement Oregamax immunity support supplement B12 1,000 mcg 1 pill BID. 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 Jacquelin Spaulding MD Status: REG ER Study: Chest 1 View (Portable) Date of Exam: 01/28/24 Exam# [id number] Ordering Dr: Helder Aiken DO [id number] STUDY: X-RAY CHEST REASON FOR EXAM: Male, 83 years old. Fall, ?syncope TECHNIQUE: Single AP portable view of the chest. COMPARISON: Comparison is made with prior study dated May 22, 2023. FINDINGS: Mild increased markings at the lung bases which have progressed as compared to prior study suggestive of a bibasilar scarring and/or atelectasis. There is no demonstrated pleural abnormality. Normal size heart. Normal mediastinum and amee. Normal visualized pulmonary arteries. There is atherosclerotic calcification of the aortic arch with tortuosity. There are diffuse degenerative changes of the visualized thoracic spine. Normal visualized ribs, clavicles, and shoulders. There is no demonstrated abnormality of the visualized soft tissue structures of the upper abdomen. RAD/Chest 1 View (Portable) IMPRESSION: Mild increased markings at the lung bases suggestive of either bibasilar atelectasis and/or scarring. Electronically Signed: Pepe Bunn MD at 12:21 EDT , CC: Dr. Jacquelin Spaulding MD; Dr. Helder Aiken DO Copying Machine Repairer: Signed Normal [facility] Comprehensive Metabolic Prof ilon 01-28-2024 Albumin [Mass/Vol] 3.6 g/dL Normal 3.2-5.0 [facility] Comment on above: Order Comment: 'TROP ' Serial specimen #1, #2 or #3: 1 Performed By: #### L 100.0100, L501.4020, L500.4050 #### [facility] [address] [place], [address] Albumin/Globulin [Mass ratio] 1.3 {ratio} Normal 0.9-2.4 [facility] Comment on above: Order Comment: 'TROP ' Serial specimen #1, #2 or #3: 1 Performed By: #### L 100.0100, L501.4020, L500.4050 #### [facility] [address] [place], [address] ALK P 54 U/L Normal 45-117 [facility] Comment on above: Order Comment: 'TROP ' Serial specimen #1, #2 or #3: 1 Performed By: #### L 100.0100, L501.4020, L500.4050 #### [facility] [address] [place], [address] ALT [Catalytic activity/Vol] 24 U/L Normal 16-61 [facility] Comment on above: Order Comment: 'TROP ' Serial specimen #1, #2 or #3: 1 Performed By: #### L 100.0100, L501.4020, L500.4050 #### [facility] [address] [place], [address] AST [Catalytic activity/Vol] 17 U/L Normal 15-37 [facility] Comment on above: Order Comment: 'TROP ' Serial specimen #1, #2 or #3: 1 Performed By: #### L 100.0100, L501.4020, L500.4050 #### [facility] [address] [place], [address] Bilirubin [Mass/Vol] 0.70 mg/dL Normal 0.20-1.00 [facility] Comment on above: Order Comment: 'TROP ' Serial specimen #1, #2 or #3: 1 Result Comment: For patients on eltrombopag therapy, use of Dimension [place] TBIL is not recommended. Performed By: #### L 100.0100, L501.4020, L500.4050 #### [facility] [address] [place], [address] BUN/CRE 10.6 RATIO Normal 10-20 [facility] Comment on above: Order Comment: 'TROP ' Serial specimen #1, #2 or #3: 1 Performed By: #### L 100.0100, L501.4020, L500.4050 #### [facility] [address] [place], [address] CA,Total 8.7 mg/dL Normal 8.5-10.1 [facility] Comment on above: Order Comment: 'TROP ' Serial specimen #1, #2 or #3: 1 Performed By: #### L 100.0100, L501.4020, L500.4050 #### [facility] [address] [place], [address] Chloride [Moles/Vol] 110 mmol/L High 98-107 [facility] Comment on above: Order Comment: 'TROP ' Serial specimen #1, #2 or #3: 1 Performed By: #### L 100.0100, L501.4020, L500.4050 #### [facility] [address] [place], [address] CO2 [Moles/Vol] 24.0 mmol/L Normal 21.0-32.0 [facility] Comment on above: Order Comment: 'TROP ' Serial specimen #1, #2 or #3: 1 Performed By: #### L 100.0100, L501.4020, L500.4050 #### [facility] [address] [place], [address] Creatinine [Mass/Vol] 0.76 mg/dL Normal 0.70-1.30 [facility] Comment on above: Order Comment: 'TROP ' Serial specimen #1, #2 or #3: 1 Result Comment: The validity of the calculated GFR GFRAA in patients over 70 years has not been determined. Clinical correlation is essential. Performed By: #### L 100.0100, L501.4020, L500.4050 #### [facility] [address] [place], [address] EST GFR - AA 126 mL/min Normal >60 [facility] Comment on above: Order Comment: 'TROP ' Serial specimen #1, #2 or #3: 1 Result Comment: Afri can Slovak GFR Calc Performed By: #### L 100.0100, L501.4020, L500.4050 #### [facility] [address] [place], [address] GAP 4 Low 5-15 [facility] Comment on above: Order Comment: 'TROP ' Serial specimen #1, #2 or #3: 1 Performed By: #### L 100.0100, L501.4020, L500.4050 #### [facility] [address] [place], [address] GFR/1.73 sq M.predicted among non-blacks MDRD (S/P/Bld) [Vol rate/Area] 104 mL/min/{1.73_m2} Normal >60 [facility] Comment on above: Order Comment: 'TROP ' Serial specimen #1, #2 or #3: 1 Result Comment: Non- GFR Calc Performed By: #### L 100.0100, L501.4020, L500.4050 #### [facility] [address] [place], [address] Globulin (S) [Mass/Vol] 2.8 g/dL Normal 2.2-4.2 [facility] Comment on above: Order Comment: 'TROP ' Serial specimen #1, #2 or #3: 1 Performed By: #### L 100.0100, L501.4020, L500.4050 #### [facility] [address] [place], [address] Glucose [Mass/Vol] 103 mg/dL Normal 74-106 [facility] Comment on above: Order Comment: 'TROP ' Serial specimen #1, #2 or #3: 1 Result Comment: Fast ing Glucose result from 100 to 125 mg/dL suggests IMPAIRED HOMEOSTASIS per A.D.A. criteria. Performed By: #### L 100.0100, L501.4020, L500.4050 #### [facility] [address] [place], [address] Potassium [Moles/Vol] 4.4 mmol/L Normal 3.5-5.1 [facility] Comment on above: Order Comment: 'TROP ' Serial specimen #1, #2 or #3: 1 Performed By: #### L 100.0100, L501.4020, L500.4050 #### [facility] [address] [place], [address] Sodium [Moles/Vol] 138 mmol/L Normal 136-145 [facility] Comment on above: Order Comment: 'TROP ' Serial specimen #1, #2 or #3: 1 Performed By: #### L 100.0100, L501.4020, L500.4050 #### [facility] [address] [place], [address] T PROT 6.4 g/dL Normal 6.4-8.2 [facility] Comment on above: Order Comment: 'TROP ' Serial specimen #1, #2 or #3: 1 Performed By: #### L 100.0100, L501.4020, L500.4050 #### [facility] [address] [place], [address] Urea nitrogen [Mass/Vol] 8 mg/dL Normal 7-18 [facility] Comment on above: Order Comment: 'TROP ' Serial specimen #1, #2 or #3: 1 Performed By: #### L 100.0100, L501.4020, L500.4050 #### [facility] [address] [place], [address] Emergency Department Summary on 01-28-2024 Emergency Department Summary [facility] Medical Records Department [address] [place] [address] Emergency Department Summary 01/28/24 MR#: [id number] Acct: [id number] Name: MELVIN RIDDLE Rep #: [id number] : 1940 83 From: Helder Aiken DO PCP: Dr. Jacquelin Spaulding MD Status:REG ER Location: ED HPI HPI - Fall History of Present Illness Chief Complaint: Fall PFSH PFSH Medical History Abdominal pain COPD (chronic obstructive pulmonary disease) History of inguinal hernia Pulmonary fibrosis Right inguinal hernia Home Medications ???Medication ???Instructions ???Recorded ???Last Taken ???Type memantine 5 mg tablet 5 mg PO DAILY 05/22/23 Unknown History nirmatrelvir 300 mg (150 mg See Rx Instructions PO .COMPLEX 05/22/23 Unknown Rx x2)-ritonavir 100 mg tablet,dose #30 tabs pack (Paxlovid) ondansetron 4 mg disintegrating 4 mg PO Q8H PRN PRN Nausea #14 tabs 05/22/23 Unknown Rx tablet Allergy/AdvReac Type Severity Reaction Status Date / Time No Known Allergies Allergy Verified 01/28/24 10:13 Family History Mother Myocardial infarction Brother Myocardial infarction Father Emphysema of lung Surgical History History of right inguinal hernia repair ( 03/24/18) History of tooth extraction Social History Smoking Status: Former smoker EXAM Physical Exam Const Vital Signs: 01/28/24 10:13 01/28/24 10:40 Temperature 97.2 F L Temperature Source Temporal Pulse Rate 77 Respiratory Rate 16 Respiratory Effort Normal Non-Labored Respiratory Depth Normal Respiratory Pattern Normal Blood Pressure 147/68 H Blood Pressure Mean 94 Pulse Ox 95 Oxygen Delivery Method Room Air MDM MDM MDM Narrative Medical decision making narrative: HISTORY OF PRESENT ILLNESS: 83-year-old male presents with fall. Patient cannot endorse the symptoms on the fall. He lives with his daughter. Daughter states she heard him fall walker room he was conscious on his left side. She thinks he tripped over the threshold to be in his room in the hallway. Patient is typically alert and oriented to person and place but not initially to time. He is at his baseline mental status today per his daughter. He denies any headache, fever, chills REVIEW OF SYSTEMS: Pertinent positives: Fall, left arm pain, left hip/lower back pain. Pertinent negatives: Syncope PHYSICAL EXAM: Nursing triage notes reviewed, Vital signs reviewed Primary Survey Airway: Intact Breathing: Bilateral breath sounds Circulation: Palpable bilateral femorals, Palpable bilateral radial, Palpable bilateral DP and Palpable bilateral PT Disability / Spine precautions GCS Score: Eye Openin Verbal Response: 5 Motor Response: 6 Secondary Survey Constitutional: Please see MDM Head: Atraumatic, Midface stable, NO jaw malocclusion, No Cephalohematoma, and No Lacerations noted Eye: Pupils equal round and reactive to light, Extraocular muscles intact and No periorbital ecchymosis or stepoff, no evidence of entrapment ENT: Oropharynx clear, no lacerations, no hemotympanum, no raccoon eyes or nails sign Cervical spine / Neck: No cervical spine bony tenderness, crepitance, or stepoff deformity Trachea midline Lungs: Clear to auscultation, No asymmetric rise and No crepitus, no flail chest Cardiac: Regular rate and rhythm and No murmurs Abdomen: Soft, Nontender and No rebound Pelvis: Pelvis stable to compression : No evidence of genital injury Back: No midline bony tenderness to thoracic/lumbar/sacr al spines, bruising noted over the left lower spine Neuro: At baseline, intact strength and sensation in bilateral upper and lower extremities. 2+ patellar reflexes bilaterally. Extremities: NO gross Deformities Psych: Normal affect Skin: Skin tear to the left upper arm MEDICAL DECISION MAKING: Chief Complaint: Fall External records reviewed: Reviewed prior records Factors affecting care: COPD, pulmonary fibrosis Social determinants of health: Elderly History obtained from others: Patient's daughter Consults: none [facility] Narrative: Patient was initially hemodynamically stable, afebrile and nontoxic-appearing. Primary secondary trauma surveys concerning for intracranial, cervical spine, lumbar, left arm and left hip abnormality, anemia. Per patient's Patient's mental status at baseline. He had no lateralizing neurologic findings on initial exam. I considered the following differential diagnosis: Fracture dislocation or bony traumatic abnormality to the head, cervical spine, lumbar spine, left hip or left u (more content not included)... Normal [facility] HIP, UNI W/ Pelvis 2-3 Views on 01-28-2024 HIP, UNI W/ Pelvis 2-3 Views [facility] Imaging Services [address] [place], [place] [address] HIP, UNI W/ Pelvis 2-3 Views MR#: [id number] Acct: [id number] Name: MELVIN RIDDLE Rep #: [id number] : 1940 M 83 From: Pepe duffy MD PCP: Dr. Jacquelin Spaulding MD Status: REG ER Study: HIP, UNI W/ Pelvis 2-3 Views Date of Exam: 08/21 Exam# [id number] Ordering Dr: Helder Aiken DO [id number] STUDY: X-RAY - PELVIS AND LEFT HIP REASON FOR EXAM: Male, 83 years old. Hip pain TECHNIQUE: 3 views of the pelvis and hip. COMPARISON: None. FINDINGS: There is a non-specific bowel gas pattern. Normal visualized soft tissue structures. Normal bilateral iliac wings, sacroiliac joints and visualized sacrum. Normal bilateral superior and inferior pubic rami. Normal pubic symphysis. Normal bilateral ischial tuberosities. Normal visualized femoral head. Normal acetabulum. There is moderate articular joint space narrowing of the hip. RAD/HIP, UNI W/ Pelvis 2-3 Views IMPRESSION: Degenerative changes of both hip joints. Electronically Signed: Pepe Bunn MD at 12:20 EDT , CC: Dr. Jacquelin Spaulding MD; Dr. Helder Aiken DO Copying Machine Repairer: Signed Normal [facility] Humerus min 2 Viewson 2023 Humerus min 2 Views [facility] Imaging Services [address] [place], [place] [address] Humerus min 2 Views MR#: [id number] Acct: [id number] Name: MELVIN RIDDLE Rep #: [id number] : 1940 M 83 From: Pepe duffy MD PCP: Dr. Jacquelin Spaulding MD Status: REG ER Study: Humerus min 2 Views Date of Exam: 01/28/24 Exam# [id number] Ordering Dr: Helder Aiken DO [id number] STUDY: X-RAY - LEFT HUMERUS REASON FOR EXAM: Male, 83 years old. pain TECHNIQUE: 2 view(s) of the humerus. COMPARISON: None. FINDINGS: Normal visualized humerus. There is no demonstrated fracture or osseous destructive process. There is no demonstrated soft tissue abnormality. RAD/Humerus min 2 Views IMPRESSION: Normal x-ray examination of the humerus. Electronically Signed: Pepe Bunn MD at 12:19 EDT Reading Location ID and State: [facility] / [place] , Service support , CC: Dr. Jacquelin Spaulding MD; Dr. Helder Aiken DO Copying Machine Repairer: Signed Normal [facility] L501.4020on 01-28-2024 TROPONIN-I HS 6 pg/mL Normal 3.0-78.0 [facility] Comment on above: Order Comment: 'TROP ' Serial specimen #1, #2 or #3: 1 Result Comment: Plea se Note: New Test Units and Gender Specific Reference Ranges. For more information see Policy Stat Procedure [place] High Sensitivity Troponin (TNIH) and attachments. Performed By: #### L 100.0100, L501.4020, L500.4050 #### [facility] Laboratory [address] [facility] [place], [address] Spine Cervical without Contr ason 01-28-2024 Spine Cervical without Contras [facility] Imaging Services [address] [place], [place] [id number] Spine Cervical without Contras MR#: [id number] Acct: [id number] Name: MELVIN RIDDLE Rep #: [id number] : 1940 M 83 From: Pepe duffy MD PCP: Dr. Jacquelin Spaulding MD Status: REG ER Study: Spine Cervical without Contras Date of Exam: 0 01/28/24 Exam# [id number] Ordering Dr: Helder Aiken DO [id number] STUDY: CT CERVICAL SPINE WITHOUT CONTRAST REASON FOR EXAM: Male, 83 years old. Neck pain RADIATION DOSAGE (If Supplied By Facility): CTDIvol = ( 27.59 ) mGy, DLP = ( 556.45 ) mGycm TECHNIQUE: High resolution transaxial imaging was performed without contrast material. Sagittal and coronal images were reconstructed. Individualized dose optimization techniques were used for this CT. COMPARISON: Comparison is made with prior study dated May 22, 2023. FINDINGS: Normal craniovertebral junction. There are degenerative changes of the anterior atlantoaxial articulation. Normal odontoid process. Normal cervical lordosis. Multilevel facet joint osteoarthritis. C2-3: Disc space narrowing. Mild subchondral sclerosis. No significant stenosis seen. C3-4: Moderate degree of disc space narrowing. Mild uncovertebral arthrosis. No significant stenosis seen. C4-5: Moderate degree of disc space narrowing. Uncovertebral arthrosis. Facet joint osteoarthritis and hypertrophy worse on the left side. Mild to moderate degree of left neural foraminal stenosis. C5-6: Moderate degree of disc space narrowing. No stenosis seen. C6-7: Marked degree of disc space narrowing. Uncovertebral arthrosis. No significant spinal stenosis seen. C7-T1: Normal endplates. Normal disc height and morphology. Normal central canal and intervertebral neuroforamina. Atherosclerotic calcific plaques in the carotid bifurcations bilaterally. CT/Spine Cervical without Contras IMPRESSION: Multilevel degenerative changes, as described above. Electronically Signed: Pepe Bunn MD at 12:02 EDT , CC: Dr. Jacquelin Spaulding MD; Dr. Helder Aiken DO Copying Machine Repairer: Signed Normal [facility] Spine Lumbar without Contras ton 01-28-2024 Spine Lumbar without Contrast [facility] Imaging Services [address] [place] [address] Spine Lumbar without Contrast MR#: [id number] Acct: [id number] Name: MELVIN RIDDLE Rep #: [id number] : 1940 M 83 From: Pepe duffy MD PCP: Dr. Jacquelin Spaulding MD Status: REG ER Study: Spine Lumbar without Contrast Date of Exam: Exam# [id number] Ordering Dr: Helder Aiken DO [id number] STUDY: CT LUMBAR SPINE WITHOUT CONTRAST REASON FOR EXAM: Male, 83 years old. No back pain following a fall. RADIATION DOSAGE (If Supplied By Facility): CTDIvol = ( 29.16 ) mGy, DLP = ( 1000.45 ) mGycm TECHNIQUE: The patient was scanned in a multi detector CT scanner. High resolution transaxial imaging was performed. Images were obtained from L1 to the S1 vertebral level. Sagittal and coronal images were reconstructed. Individualized dose optimization techniques were used for this CT. COMPARISON: None FINDINGS: Mild increased markings at the lung bases more prominent at the right lung base suggestive of a basilar atelectasis. Normal lumbar lordosis. There is no substantial scoliosis. Normal vertebrae of the lumbar spine. L1-2: Normal endplates. Normal disc height and morphology. Normal bilateral facet joints. Normal central canal and bilateral lateral recesses. Normal bilateral intervertebral neural foramina. L2-3: Normal endplates. Normal disc height and morphology. Normal bilateral facet joints. Normal central canal and bilateral lateral recesses. Normal bilateral intervertebral neural foramina. L3-4: Mild degree of disc space narrowing. Facet joint osteoarthritis. Mild degree of bilateral neural foraminal stenosis. L4-5: Mild degree of disc space narrowing. Facet joint osteoarthritis and hypertrophy. No significant stenosis seen. L5-S1: Normal endplates. Normal disc height and morphology. Normal bilateral facet joints. Normal central canal and bilateral lateral recesses. Normal bilateral intervertebral neural foramina. Distended urinary bladder. Calcification of the abdominal aorta. CT/Spine Lumbar without Contrast IMPRESSION: Multilevel degenerative changes, as described above. Electronically Signed: Pepe Bunn MD at 12:10 EDT , CC: Dr. Jacquelin Spaulding MD; Dr. Helder Aiken DO Copying Machine Repairer: Signed Normal [facility] Absolute lymphocyte countOrd ered By: Jonathan Bedoya on 05-22-2023 Lymphocytes Auto (Unsp spec) [#/Vol] 0.98 10*3/uL 0.83-4.51 [facility] Basophil percentageOrdered B y: Jonathan Bedoya on 05-22-2023 Basophil percentage 0-5 SEEN /hpf 0-5 [facility] Basophils/100 WBC (Bld) 0.4 % 0-1 [facility] Bilirubin [Mass/Vol] 0.70 mg/dL 0.20-1.00 [facility] Comment on above: For patients on eltr ombopag therapy, use of Dimension [place] TBIL is not recommended. Chloride [Moles/Vol] 105 mmol/L 98-107 [facility] Eosinophils/100 WBC (Bld) 0.2 % 0-5 [facility] Glucose [Mass/Vol] 99 mg/dL 74-106 [facility] Neutrophils (Bld) [#/Vol] 6.2 10*3/uL 2.0-7.7 [facility] Neutrophils/100 WBC (Bld) 76.6 % 47-70 [facility] Potassium [Moles/Vol] 4.0 mmol/L 3.5-5.1 [facility] Protein [Mass/Vol] 6.5 g/dL 6.4-8.2 [facility] Sodium [Moles/Vol] 137 mmol/L 136-145 [facility] WBC (Bld) [#/Vol] 8.1 10*3/uL 4.4-11.0 [facility] Bilirubin Test strip Ql (U)O rdered By: Jonathan Bedoya on 05-22-2023 Bilirubin Ql (U) Negative Negative [facility] Blood erythrocytes count (nu mber/volume)Ordered By: Jonathan Bedoya on 05-22-2023 RBC (Bld) [#/Vol] 4.46 10*6/uL 4.6-6.2 [facility] Blood hemoglobin measurement (mass/volume)Ordered By: Jonathan Bedoya on 05-22-2023 Hemoglobin (Bld) [Mass/Vol] 14.2 g/dL 13.0-16.5 [facility] Blood lymphocytes/100 leukoc ytesOrdered By: Jonathan Bedoya on 05-22-2023 Lymphocytes/100 WBC (Bld) 12.2 % 19-41 [facility] Blood monocytes/100 leukocyt esOrdered By: Jonathan Bedoya on 05-22-2023 Monocytes/100 WBC (Bld) 10.4 % 0-10 [facility] Blood platelet mean volumeOr dered By: Jonathan Bedoya on 05-22-2023 Platelet mean volume (Bld) [Entitic vol] 10.5 fL 6.2-12.0 [facility] Determination of erythrocyte mean corpuscular volume (MCV)Ordered By: Jonathan Bedoya on 05-22-2023 MCV (RBC) [Entitic vol] 95.3 fL 80-94 [facility] Hematocrit Auto (Bld) [Volum e fraction]Ordered By: Jonathan Bedoya on 05-22-2023 Hematocrit (Bld) [Volume fraction] 42.5 % 40-54 [facility] Influenza virus A and B and SARS-CoV-2 (COVID-19) Ag panel - Upper respiratory specimOrdered By: Jonathan Bedoya on 05-22-2023 SARS-CoV-2 & FLU Antigen (Rapid) SARS-CoV-2 (COVID 19) [facility] Ketones Test strip Ql (U)Ord ered By: Jonathan Bedoya on 05-22-2023 Ketones Ql (U) 50 mg/dl Negative [facility] Laboratory - Chemistry and C hemistry - challengeOrdered By: Jonathan Bedoya on 05-22-2023 ALP [Catalytic activity/Vol] 55 U/L 45-117 [facility] ALT [Catalytic activity/Vol] 26 U/L 16-61 [facility] CO2 [Moles/Vol] 26.0 mmol/L 21.0-32.0 [facility] Globulin (S) [Mass/Vol] 2.8 g/dL 2.2-4.2 [facility] Urea nitrogen/Creatinine [Mass ratio] 10.8 mg/mg 10-20 [facility] Laboratory - Hematology and Cell countsOrdered By: Jonathan Bedoya on 05-22-2023 Erythrocyte distribution width (RBC) [Entitic vol] 44.6 fL 35.1-43.9 [facility] Erythrocyte distribution width (RBC) [Ratio] 12.7 % 11.6-14.6 [facility] Immature granulocytes/100 WBC (Bld) 0.200 % 0.0-0.9 [facility] Comment on above: IG% - Immature Granu locytes (promyelocytes, myelocytes and metamyelocytes) > 1% indicates that a LEFT SHIFT is Present. MCH (RBC) [Entitic mass] 31.8 pg 27.0-32.0 [facility] Nucleated RBC/100 WBC (Bld) [Ratio] 0 % 0-5 [facility] MCHC Auto (RBC) [Mass/Vol]Or dered By: Jonathan Bedoya on 05-22-2023 MCHC (RBC) [Mass/Vol] 33.4 g/dL 32-36 [facility] Mucus LM Ql (Urine sed)Order ed By: Jonathan Bedoya on 05-22-2023 Mucus Ql (Urine sed) 0 SEEN /hpf [facility] Nitrite Test strip Ql (U)Ord ered By: Jonathan Bedoya on 05-22-2023 Nitrite Ql (U) Negative Negative [facility] No Panel InformationOrdered By: Jonathan Bedoya on 05-22-2023 Estimated Creatinine Clearance Calc 60.85 ml/min [facility] Estimated GFR (MDRD) Amer 113 mL/min >60 [facility] Comment on above: GFR Calc Estimated GFR (MDRD) Non-Af Amer 94 mL/min >60 [facility] Comment on above: Non- GFR Calc Troponin I High Sensitivity 9 pg/mL 3.0-78.0 [facility] Comment on above: Please Note: New Maegan t Units and Gender Specific Reference Ranges. For more information see Policy Stat Procedure [place] High Sensitivity Troponin (TNIH) and attachments. Platelets bldOrdered By: Tawanda Bedoya on 05-22-2023 Platelets (Bld) [#/Vol] 177 10*3/uL 150-450 [facility] Protein Test strip Ql (U)Ord ered By: Jonathan Bedoya on 05-22-2023 Protein Ql (U) Negative Negative [facility] Serum or plasma albumin morris urement (mass/volume)Ordered By: Jonathan Bedoya on 05-22-2023 Albumin [Mass/Vol] 3.7 g/dL 3.2-5.0 [facility] Serum or plasma albumin/glob ulin mass ratioOrdered By: Jonathan Bedoya on 05-22-2023 Albumin/Globulin [Mass ratio] 1.3 {ratio} 0.9-2.4 [facility] Serum or plasma calcium morris urement (mass/volume)Ordered By: Jonathan Bedoya on 05-22-2023 Calcium [Mass/Vol] 8.7 mg/dL 8.5-10.1 [facility] Serum or plasma creatinine m easurement (mass/volume)Ordered By: Jonathan Bedoya on 05-22-2023 Creatinine [Mass/Vol] 0.83 mg/dL 0.70-1.30 [facility] Comment on above: The validity of the calculated GFR & GFRAA in patients over 70 years has not been determined. Clinical correlation is essential. Serum or plasma urea nitroge n measurement (mass/volume)Ordered By: Jonathan Bedoya on 05-22-2023 Urea nitrogen [Mass/Vol] 9 mg/dL 7-18 [facility] Squamous epithelial cells de tection in urine sediment by light microscopyOrdered By: Jonathan Bedoya on 11-25-2023 Epithelial cells.squamous LM Ql (Urine sed) 0 SEEN /hpf 0-5 [facility] Thin prep Papanicolaou smear with manual screeningOrdered By: Jonathan Bedoya on 05-22-2023 Thin prep Papanicolaou smear with manual screening 14 U/L 15-37 [facility] Thin prep Papanicolaou smear with manual screening 6 5-15 [facility] Urine blood detectionOrdered By: Jonathan Bedoya on 05-22-2023 RBC Ql (U) Negative Negative [facility] RBC Ql (U) 0 SEEN /hpf 0-5 [facility] Urine clarityOrdered By: Tawanda Bedoya on 05-22-2023 Clarity (U) Clear Clear [facility] Urine color determinationOrd ered By: Jonathan Bedoya on 05-22-2023 Color (U) Yellow Yellow [facility] Urine glucose detectionOrder ed By: Jonathan Bedoya on 05-22-2023 Glucose Ql (U) Normal mg/dl Normal [facility] Urine leukocyte esterase det ection by dipstickOrdered By: Jonathan Bedoya on 05-22-2023 Leukocyte esterase Test strip Ql (U) 25 /ul Negative [facility] Urine pHOrdered By: Jonathan ba on 05-22-2023 pH (U) 6.0 [pH] 5.0 - 8.0 [facility] Urine sediment bacteria coun t by microscopy (number/high power field)Ordered By: Jonathan Bedoya on 05-22-2023 Bacteria LM.HPF (Urine sed) [#/Area] 0 /[HPF] None Seen [facility] Urine specific gravity measu rementOrdered By: Jonathan Bedoya on 05-22-2023 Specific gravity (U) [Rel density] 1.020 1.002-1.030 [facility] Urobilinogen Auto test strip Ql (U)Ordered By: Jonathan Bedoya on 05-22-2023 Urobilinogen Ql (U) Normal mg/dl Normal [facility] VITAMIN B12 BLOODon 10-08-19 23 Cobalamin (Vitamin B12) [Mass/Vol] 792 pg/mL 232 - 1,245 pg/mL [facility] CNPJohana 04-07-2022 CNPN Telephone (GERIST) MELVIN RIDDLE ([id number]) 1940 M Date Time Provider Department 04/07/22 CATHERINE CROW During your visit today, we recorded the following information about you: Arelis Bee LPN 04/07/2022 11:55 AM Signed ----- Message from Catherine Crow MD sent at 04/03/2022 3:07 PM EDT ----- Blood work shows that vitamin B12 is low. Please start taking 1000 mcg of Vitamin B12 daily over the counter. All other blood work is normal. Arelis Bee LPN 04/07/2022 12:00 PM Signed Notified pt daughter, [place] of results. She inquired if the B12 deficiency would effect his memory? Pt is scheduled for a VV on Wednesday and this can be discussed at that visit, Catherine Crow MD 04/07/2022 2:59 PM Signed Yes it can. We will discuss at his next office visit. Catherine Crow MD Allergies As of Date: 04/07/2022 (No Known Allergies) Date Reviewed: 03/20/2022 Reviewed by: Catherine Crow MD - Fully Assessed Reason for Visit: Results [95] Prescriptions as of 04/07/2022 - memantine (NAMENDA) 5 mg tablet Take 1 tablet by mouth twice daily. Meds Comments as of 01/06/2019: Uses [facility] Problem List As Of Date 04/07/2022 Noted Resolved Pulmonary emphysema (HCC) [J43.9] 10/11/2017 Encounter Status:Closed by ARELIS BEE on 04/07/22 [facility] VITAMIN D 25 HYDROXYon 03-23 25-hydroxyvitamin D3 [Mass/Vol] 44.3 ng/mL >=30.0 ng/mL [facility] 25(OH)D3 SerPl-mCncon 2021 25-hydroxyvitamin D3 [Mass/Vol] 44.3 ng/mL Normal >=30.0 [facility] Comment on above: Order Comment: Paula aceves Type: BLOOD SPECIMEN Ordering Facility: [facility] Address: [address] [place] [address] Result Comment: Clas sification of 25 [place] Vitamin D status: Deficiency: <= 20.0 ng/ml. Insufficiency: 21.0-29.0 ng/ml. Sufficiency: >= 30.0 ng/ml. Performed By: #### 1 989-3 #### [facility] CLIA [id number] [address] [place] [address] [facility] CBC panel Auto (Bld)on 03-20 Erythrocyte distribution width (RBC) [Ratio] 13.2 % 11.5 - 15.0 % [facility] Hematocrit (Bld) [Volume fraction] 44.6 % 39.0 - 51.0 % [facility] Hemoglobin (Bld) [Mass/Vol] 14.9 g/dL 13.0 - 17.0 g/dL [facility] MCH (RBC) [Entitic mass] 31.8 pg 26. 0 - 34.0 pg [facility] MCHC (RBC) [Mass/Vol] 33.4 g/dL 30.5 - 36.0 g/dL [facility] MCV (RBC) [Entitic vol] 95.3 fL 80.0 - 100.0 fL [facility] Nucleated RBC (Bld) [#/Vol] <0.01 k/uL [facility] Platelet mean volume (Bld) [Entitic vol] 11.2 fL 9.0 - 12.7 fL [facility] Platelets (Bld) [#/Vol] 211 10*3/uL 150 - 400 k/uL [facility] RBC (Bld) [#/Vol] 4.68 10*6/uL 4.20 - 6.0 0 m/uL [facility] WBC (Bld) [#/Vol] 6.38 10*3/uL 3.70 - 11. 00 k/uL [facility] Erythrocyte distribution width (RBC) [Ratio] 13.2 % Normal 11.5-15.0 [facility] Comment on above: Order Comment: Paula aceves Type: BLOOD SPECIMEN Ordering Facility: [facility] Address: [address] [address] Performed By: #### 5 8410-2 #### [facility] CLIA [id number] [address] Hematocrit (Bld) [Volume fraction] 44.6 % Normal 39.0-51.0 [facility] Comment on above: Order Comment: Speci men Type: BLOOD SPECIMEN Ordering Facility: [facility] Address: [address] [place] [address] Performed By: #### 5 8410-2 #### [facility] CLIA [id number] [address] Hemoglobin (Bld) [Mass/Vol] 14.9 g/dL Normal 13.0-17.0 [facility] Comment on above: Order Comment: Speci men Type: BLOOD SPECIMEN Ordering Facility: [facility] Address: [address] [place] [address] Performed By: #### 5 8410-2 #### [facility] CLIA [id number] [address] MCH (RBC) [Entitic mass] 31.8 pg Normal 26.0-34.0 [facility] Comment on above: Order Comment: Speci men Type: BLOOD SPECIMEN Ordering Facility: [facility] Address: [address] [place] [address] Performed By: #### 5 8410-2 #### [facility] CLIA [id number] [address] [facility] MCHC (RBC) [Mass/Vol] 33.4 g/dL Normal 30.5-36.0 [facility] Comment on above: Order Comment: Speci men Type: BLOOD SPECIMEN Ordering Facility: [facility] Address: [address] [place] [address] Performed By: #### 5 8410-2 #### [facility] CLIA [id number] [address] MCV (RBC) [Entitic vol] 95.3 fL Normal 80.0-100.0 [facility] Comment on above: Order Comment: Speci men Type: BLOOD SPECIMEN Ordering Facility: [facility] Address: [address] [address] Performed By: #### 5 8410-2 #### [facility] CLIA [id number] [address] [place] Nucleated RBC (Bld) [#/Vol] 10*3/uL Normal <0.01 [facility] Comment on above: Order Comment: Speci men Type: BLOOD SPECIMEN Ordering Facility: [facility] Address: [address] [place] [address] Performed By: #### 5 8410-2 #### [facility] CLIA [id number] [address] [place] Platelet mean volume (Bld) [Entitic vol] 11.2 fL Normal 9.0-12.7 [facility] Comment on above: Order Comment: Speci men Type: BLOOD SPECIMEN Ordering Facility: [facility] Address: [address] [place] [address] Performed By: #### 5 8410-2 #### [facility] CLIA [id number] [address] [place] Platelets (Bld) [#/Vol] 211 10*3/uL Normal 150-400 [facility] Comment on above: Order Comment: Speci men Type: BLOOD SPECIMEN Ordering Facility: [facility] Address: [address] Performed By: #### 5 8410-2 #### [facility] CLIA [id number] 1 [place] [address] [place] RBC (Bld) [#/Vol] 4.68 10*6/uL Normal 4.20-6.00 [facility] Comment on above: Order Comment: Speci men Type: BLOOD SPECIMEN Ordering Facility: [facility] Address: [address] [place] [address] Performed By: #### 5 8410-2 #### [facility] CLIA [id number] 1 [place] [address] [facility] WBC (Bld) [#/Vol] 6.38 10*3/uL Normal 3.70-11.00 [facility] Comment on above: Order Comment: Speci men Type: BLOOD SPECIMEN Ordering Facility: [facility] Address: [address] [place] [address] Performed By: #### 5 8410-2 #### [facility] CLIA [id number] 1 [place] [address] [facility] CNOVon 03-20-2022 CNOV Office Visit (GERIST) MELVIN RIDDLE ([id number]) 1940 M Date Time Provider Department 03/20/22 9:20 AM CATHERINE CROW During your visit today, we recorded the following information about you: Temperature Pulse Blood pressure Weight 97.7 degrees 68/minute 137/59 68.4 kg Catherine Crow MD 04/20/2022 10:22 AM Signed Catherine Crow MD [facility]. [facility] [address] [place] [address] COMPREHENSIVE GERIATRICS ASSESSMENT Patient presents with: Geriatric Assessment Back Pain There are no exam notes on file for this visit. History of Present Illness Mr. Melvin Riddle is a 81 year old year old gentleman referred for Comprehensive Geriatrics Assessment, as referred by Dr. Jacquelin Spaulding for evaluation of memory deficit. He is here with his daughter Jenna Ames. Has other siblings but she is the primary caregiver. Memory: patient reports he hasnt had any loss of memory. History from daughter- Has been going on for many years. His in 2019, and was c/o memory loss. Since last year, he has declined more steeply. 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 He needs a shai at work to help guide him if he needs. Does not take any medications. Has forgotten to turn off stove. Per his last PCP note, he also did get lost driving. Home: lives at home with his daughter Social Engagement: pt works at [employer] in the [employer] department Hobbies: walking the dogs. Likes to read. These are books he has already read. No new books or new magazines. Mood: describes mood as high, good Sleep: 8 hours Appetite:2-3 meals with snacks Exercise: walking Family hx: unknown Education: some college for engineering Work/Job related history: doesn't remember CHART REVIEW: I) What Matters Most/Goals for Care: Establish baseline for memory and improve quality of life. Healthcare proxy: Daughter, Jenna Ames. Code Status: Advance Care Planning: Have wishes or desires for end-of-life care been discussed? Yes Is a power of deputy prosecuting attorney in place for financial needs? Yes Is a power of deputy prosecuting attorney in place for health care decisions? Yes Is palliative or hospice care appropriate for the patient? No II) Mentation: Cognitive Testing Evaluation Introduction: Vitaliy Riddle 1940 Male This 81 year old Male was administered a battery of neurocognitive testing on 03/20/2022. Tests Administered: Trails A, Trails B, Digit Symbol Substitution, Stroop, Immediate Recognition, Delayed Recognition The combined test administration time was 26 minutes Test Results: Cognitive testing was provided via a battery of cognitive assessments. The pattern of test scores indicate that results are valid. A Clinical Report with further description of scores and results is also available. Overall: Patient tested in the 1st* percentile (standard score of 15*). Trails A: Patient tested in the --* percentile (scaled standard score of null). Trails B: Patient tested in the --* percentile (scaled standard score of null). Digit Symbol Substitution: Patient tested in the 1st percentile (scaled standard score of -99). Stroop: Patient tested in the --* percentile (scaled standard score of null). Immediate Recognition: Patient tested in the 18th percentile (scaled standard score of 86). Delayed Recognition: Patient tested in the 5th percentile (scaled standard score of 75). * These assessments were not scored because they were potentially invalid, or the patient failed to complete in the allotted time. 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 Mood Evaluation and Screening GDS: 1 CORI-7: 0 III) Mobility: Functional Evaluation: B-ADLs: (I=independent,A=ass istance,D=dependent) ?Bathing: I, Dressing: I Toileting: I, Transferring:I, Continence: I, Feeding: I, (López Index): 6 I-ADLs: Ability to use phone: I, Shopping: A, Cooking: A, Housekeeping: A, Laundry: A, Transportation:D, Medications: D, Handle Finances: A. ([place]and scale): 0 Mobility Aid: None Falls: .: Falls in the last 12 months: Positive: 1 fall. If + falls: Late Spring/Early Summer - in the garage was bending over trying to grab something after he was leaning over to greens picker the beer can and (more content not included)... Normal [facility] Comprehensive metabolic 2000 panelon 03-20-2022 Albumin [Mass/Vol] 5.0 g/dL High 3.9 - 4.9 g/dL [facility] ALP [Catalytic activity/Vol] 50 U/L 38 - 113 U/L [facility] ALT With P-5'-P [Catalytic activity/Vol] 20 U/L 10 - 54 U/L [facility] Anion gap [Moles/Vol] 10 mmol/L 9 - 18 mmol/L [facility] AST With P-5'-P [Catalytic activity/Vol] 22 U/L 14 - 40 U/L [facility] Bilirubin [Mass/Vol] 0.6 mg/dL 0.2 - 1 .3 mg/dL [facility] Calcium [Mass/Vol] 9.6 mg/dL 8.5 - 10. 2 mg/dL [facility] Chloride [Moles/Vol] 103 mmol/L 97 - 10 5 mmol/L [facility] CO2 [Moles/Vol] 26 mmol/L 22 - 30 mmol/L [facility] Creatinine [Mass/Vol] 0.78 mg/dL 0.73 - 1.22 mg/dL [facility] Estimated Glomerular Filtration Rate 89 mL/min/1.73m >=60 mL/min/1.73m [facility] Glucose [Mass/Vol] 89 mg/dL 74 - 99 mg/dL [facility] Potassium [Moles/Vol] 4.9 mmol/L 3.7 - 5.1 mmol/L [facility] Protein [Mass/Vol] 6.9 g/dL 6.3 - 8.0 g/dL [facility] Sodium [Moles/Vol] 139 mmol/L 136 - 144 mmol/L [facility] Urea nitrogen [Mass/Vol] 12 mg/dL 9 - 24 mg/d L [facility] Albumin [Mass/Vol] 5.0 g/dL High 3.9-4.9 [facility] Comment on above: Order Comment: Speci men Type: BLOOD SPECIMEN Ordering Facility: [facility] Address: [address] [place] [address] Performed By: #### 3 016-3, 06473-4, 3023-12, 2132-02 #### [facility] CLIA [id number] [address] ALP [Catalytic activity/Vol] 50 U/L Normal 38-113 [facility] Comment on above: Order Comment: Speci men Type: BLOOD SPECIMEN Ordering Facility: [facility] Address: [address] [place], [place] [address] Performed By: #### 3 016-3, 06997-4, 3023-12, 2132-02 #### [facility] CLIA [id number] [address] STATES OF [facility] ALT With P-5'-P [Catalytic activity/Vol] 20 U/L Normal 10-54 [facility] Comment on above: Order Comment: Speci men Type: BLOOD SPECIMEN Ordering Facility: [facility] Address: [address] [place] [address] Performed By: #### 3 016-3, 73910-3, 3023-12, 2132-02 #### [facility] CLIA [id number] [address] [place] Anion gap [Moles/Vol] 10 mmol/L Normal 9-18 [facility] Comment on above: Order Comment: Speci men Type: BLOOD SPECIMEN Ordering Facility: [facility] Address: [address] [place] [address] Performed By: #### 3 016-3, 07189-7, 3023-12, 2132-02 #### [facility] CLIA [id number] [address] [place] AST With P-5'-P [Catalytic activity/Vol] 22 U/L Normal 14-40 [facility] Comment on above: Order Comment: Speci men Type: BLOOD SPECIMEN Ordering Facility: [facility] Address: [address] [place] [address] Performed By: #### 3 016-3, 66234-0, 3023-12, 2132-02 #### [facility] CLIA [id number] 1 [place] [address] [place] Bilirubin [Mass/Vol] 0.6 mg/dL Normal 0.2-1.3 [facility] Comment on above: Order Comment: Speci men Type: BLOOD SPECIMEN Ordering Facility: [facility] Address: [address] [place] [address] Performed By: #### 3 016-3, 35010-1, 3023-12, 2132-02 #### [facility] CLIA [id number] [address] [place] Calcium [Mass/Vol] 9.6 mg/dL Normal 8.5-10.2 [facility] Comment on above: Order Comment: Speci men Type: BLOOD SPECIMEN Ordering Facility: [facility] Address: [address] [place] [address] Performed By: #### 3 016-3, 77588-8, 302-7, 2132-02 #### [facility] CLIA [id number] [address] STATES OF [facility] Chloride [Moles/Vol] 103 mmol/L Normal 97-105 [facility] Comment on above: Order Comment: Speci men Type: BLOOD SPECIMEN Ordering Facility: [facility] Address: [address] [place] [address] Performed By: #### 3 016-3, 79799-8, 3023-7, 2132-02 #### [facility] CLIA [id number] [address] STATES OF [facility] CO2 [Moles/Vol] 26 mmol/L Normal 22-30 [facility] Comment on above: Order Comment: Speci men Type: BLOOD SPECIMEN Ordering Facility: [facility] Address: [address] [place] [address] Performed By: #### 3 016-3, 35170-2, 7, 2132-02 #### [facility] CLIA [id number] [address] OF [facility] Creatinine [Mass/Vol] 0.78 mg/dL Normal 0.73-1.22 [facility] Comment on above: Order Comment: Speci men Type: BLOOD SPECIMEN Ordering Facility: [facility] Address: [address] [place] [address] Performed By: #### 3 016-3, 99895-0, 7, 2132-02 #### [facility] CLIA [id number] [address] ESTIMATED GLOMERULAR FILTRATION RATE 89 mL/min/1.73m??? Normal >=60 [facility] Comment on above: Order Comment: Speci men Type: BLOOD SPECIMEN Ordering Facility: [facility] Address: [address] [place] [address] Result Comment: Lisa mated Glomerular Filtration Rate (eGFR) is calculated using the 2020 CKD-EPI creatinine equation. This equation utilizes serum creatinine, sex, and age as parameters. The creatinine assay has traceable calibration to isotope dilution-mass spectrometry. Refer to KDIGO guidelines for clinical interpretation. In patients with unstable renal function, e.g. those with acute kidney injury, the eGFR may not accurately reflect actual GFR. Performed By: #### 3 016-3, 27057-2, 3023-12, 2132-02 #### [facility] CLIA [id number] 1 [place] [address] [place] Glucose [Mass/Vol] 89 mg/dL Normal 74-99 [facility] Comment on above: Order Comment: Paula aceves Type: BLOOD SPECIMEN Ordering Facility: [facility] Address: [address] [place] [address] Result Comment: The [place] Diabetes Association (ADA) provides guidance for cutoff values for fasting glucose and random glucose. The ADA defines fasting as no caloric intake for at least 8 hours. Fasting plasma glucose results between 100 to 125 mg/dL indicate increased risk for diabetes (prediabetes). Fasting plasma glucose results greater than or equal to 126 mg/dL meet the criteria for diagnosis of diabetes. In the absence of unequivocal hyperglycemia, results should be confirmed by repeat testing. In a patient with classic symptoms of hyperglycemia or hyperglycemic crisis, random plasma glucose results greater than or equal to 200 mg/dL meet the criteria for diagnosis of diabetes. Reference: Standards of Medical Care in Diabetes 2016, [place] Diabetes Association. Diabetes Care. 2016.39(Suppl 1). Performed By: #### 3 016-3, 56487-3, 3023-12, 2132-02 #### [facility] CLIA [id number] 1 [place] [address] [place] Potassium [Moles/Vol] 4.9 mmol/L Normal 3.7-5.1 [facility] Comment on above: Order Comment: Paula aceves Type: BLOOD SPECIMEN Ordering Facility: [facility] Address: [address] [place] [address] Performed By: #### 3 016-3, 64537-8, 3023-12, 2132-02 #### [facility] CLIA [id number] 1 [place] [address] [place] Protein [Mass/Vol] 6.9 g/dL Normal 6.3-8.0 [facility] Comment on above: Order Comment: Speci men Type: BLOOD SPECIMEN Ordering Facility: [facility] Address: [address] [place] [address] Performed By: #### 3 016-3, 37272-4, 7, 2132-02 #### [facility] CLIA [id number] 1 [place] [address] [place] Sodium [Moles/Vol] 139 mmol/L Normal 136-144 [facility] Comment on above: Order Comment: Speci men Type: BLOOD SPECIMEN Ordering Facility: [facility] Address: [address] [place] [address] Performed By: #### 3 016-3, 39045-3, 7, 2132-02 #### [facility] CLIA [id number] [address] [place] Urea nitrogen [Mass/Vol] 12 mg/dL Normal 9-24 [facility] Comment on above: Order Comment: Speci men Type: BLOOD SPECIMEN Ordering Facility: [facility] Address: [address] [place] [address] Performed By: #### 3 016-3, 31934-4, 7, 2132-02 #### [facility] CLIA [id number] 1 [place] [address] [place] T4 FREE/FREE THYROXon 2021 Free T4 [Mass/Vol] 1.5 ng/dL 0.9 - 1.7 ng/dL [facility] T4 Free SerPl-mCncon 022 Free T4 [Mass/Vol] 1.5 ng/dL Normal 0.9-1.7 [facility] Comment on above: Order Comment: Speci men Type: BLOOD SPECIMEN Ordering Facility: [facility] Address: [address] [place] [address] Performed By: #### 3 016-3, 42266-9, 3023-12, 2132-02 #### [facility] CLIA [id number] [address] [place] TSH BLDon 03-20-2022 TSH Qn 0.314 m[IU]/L 0.270 - 4.200 mIU/L [facility] TSH SerPl-aCncon 03-20-2022 TSH Qn 0.314 m[IU]/L Normal 0.270-4.200 [facility] Comment on above: Order Comment: Speci men Type: BLOOD SPECIMEN Ordering Facility: [facility] Address: [address] [place] [address] Performed By: #### 3 016-3, 93431-5, 3023-12, 2132-02 #### [facility] CLIA [id number] [address] OF [facility] VITAMIN B12 BLOODon 03-20-20 22 Cobalamin (Vitamin B12) [Mass/Vol] 161 pg/mL Low 232 - 1,245 pg/mL [facility] Vit B12 SerPl-mCncon 022 Cobalamin (Vitamin B12) [Mass/Vol] 161 pg/mL Low 232-1245 [facility] Comment on above: Order Comment: Speci men Type: BLOOD SPECIMEN Ordering Facility: [facility] Address: [address] [place] [address] Performed By: #### 3 016-3, 21800-6, 3023-12, 2132-02 #### [facility] CLIA [id number] [address] Vital Signs Date Time Vital Sign Value Performing Clinician Faci hailey 11-09-2024 13:21-0400 Body mass index (BMI) [Ratio] 30.21 kg/m2 Jacquelin Spaulding MD Work Phone: [facility] 11-09-2024 13:21-040 Body weight 78.6 kg Jacquelin Spaulding MD Work Phone: [facility] 11-09-2024 13:21-0400 Diastolic blood pressure 74 mm[Hg] Jacquelin Spaulding MD Work Phone: [facility] 11-09-2024 13:21-0400 Heart rate 80 /min Jacquelin Spaulding MD Work Phone: [facility] 11-09-2024 13:21-0400 Respiratory rate 14 /min Jacquelin Spaulding MD Work Phone: [facility] 11-09-2024 13:21-0400 Systolic blood pressure 128 mm[Hg] Jacquelin Spaulding MD Work Phone: [facility] 08-21-2024 13:43-0500 Body mass index (BMI) [Ratio] 31.02 kg/m2 Jacquelin Spaulding MD Work Phone: [facility] 08-21-2024 13:43-0500 Body weight 80.7 kg Jacquelin Spaulding MD Work Phone: [facility] 08-21-2024 13:43-0500 Diastolic blood pressure 76 mm[Hg] Jacquelin Spaulding MD Work Phone: [facility] 08-21-2024 13:43-0500 Heart rate 92 /min Jacquelin Spaulding MD Work Phone: [facility] 08-21-2024 13:43-0500 Respiratory rate 20 /min Jacuqelin Spaulding MD Work Phone: [facility] 08-21-2024 13:43-0500 Systolic blood pressure 130 mm[Hg] Jacquelin Spaulding MD Work Phone: [facility] 07-14-2024 13:20-0500 Body mass index (BMI) [Ratio] 31.25 kg/m2 Jacquelin Spaulding MD Work Phone: [facility] 07-14-2024 13:20-0500 Body weight 81.3 kg Jacquelin Spaulding MD Work Phone: [facility] 07-14-2024 13:20-0500 Diastolic blood pressure 80 mm[Hg] Jacquelin Spaulding MD Work Phone: [facility] 07-14-2024 13:20-0500 Heart rate 74 /min Jacquelin Spaulding MD Work Phone: [facility] 07-14-2024 13:20-0500 Respiratory rate 16 /min Jacquelin Spaulding MD Work Phone: [facility] 07-14-2024 13:20-0500 Systolic blood pressure 130 mm[Hg] Jacquelin Spaulding MD Work Phone: [facility] 05-08-2024 13:34-0500 Body height 161.3 cm Jacquelin Spaulding MD Work Phone: [facility] 05-08-2024 13:34-0500 Body mass index (BMI) [Ratio] 29.25 kg/m2 Jacquelin Spaulding MD Work Phone: [facility] 05-08-2024 13:34-0500 Body weight 76.1 kg Jacquelin Spaulding MD Work Phone: [facility] 05-08-2024 13:34-0500 Diastolic blood pressure 68 mm[Hg] Jacquelin Spaulding MD Work Phone: [facility] 05-08-2024 13:34-0500 Heart rate 84 /min Jacquelin Spaulding MD Work Phone: [facility] 05-08-2024 13:34-0500 Respiratory rate 18 /min Jacquelin Spaulding MD Work Phone: [facility] 05-08-2024 13:34-0500 Systolic blood pressure 120 mm[Hg] Jacquelin Spaulding MD Work Phone: [facility] 02-03-2024 09:57-0400 Body mass index (BMI) [Ratio] 28.42 kg/m2 Jacquelin Spaulding MD Work Phone: [facility] 02-03-2024 09:57-0400 Body weight 75.1 kg Jacquelin Spaulding MD Work Phone: [facility] 02-03-2024 09:57-0400 Diastolic blood pressure 78 mm[Hg] Jacquelin Spaulding MD Work Phone: [facility] 02-03-2024 09:57-0400 Heart rate 76 /min Jacquelin Spaulding MD Work Phone: [facility] 02-03-2024 09:57-0400 Respiratory rate 18 /min Jacquelin Spaulding MD Work Phone: [facility] 02-03-2024 09:57-0400 Systolic blood pressure 118 mm[Hg] Jacquelin Spaulding MD Work Phone: [facility] 01-28-2024 09:54-0400 Body temperature 97.39 [degF] Gabrielle Montez MANAGER OF PM[employer].INSTALLATION SUPERINTENDENT Work Phone: [facility] 01-28-2024 09:54-0400 Diastolic blood pressure 77 mm[Hg] Gabrielle Montez MANAGER OF [employer].INSTALLATION SUPERINTENDENT Work Phone: [facility] 01-28-2024 09:54-0400 Heart rate 72 /min Gabrielle Montez MANAGER OF [employer].INSTALLATION SUPERINTENDENT Work Phone: [facility] 01-28-2024 09:54-0400 Respiratory rate 18 /min Gabrielle Montez MANAGER OF [employer].INSTALLATION SUPERINTENDENT Work Phone: [facility] 01-28-2024 09:54-0400 SaO2% (BldA) [Mass fraction] 93 % Gabrielle Montez MANAGER OF [employer].INSTALLATION SUPERINTENDENT Work Phone: [facility] 01-28-2024 09:54-0400 Systolic blood pressure 132 mm[Hg] Gabrielle Montez MANAGER OF [employer].INSTALLATION SUPERINTENDENT Work Phone: [facility] 11-05-2023 16:12-0400 Body mass index (BMI) [Ratio] 28.37 kg/m2 Jacquelin Spaulding MD Work Phone: [facility] 11-05-2023 16:12-0400 Body weight 74.98 kg Jacquelin Spaulding MD Work Phone: [facility] 11-05-2023 16:12-0400 Diastolic blood pressure 80 mm[Hg] Jacquelin Spaulding MD Work Phone: [facility] 11-05-2023 16:12-0400 Heart rate 68 /min Jacquelin Spaulding MD Work Phone: [facility] 11-05-2023 16:12-0400 Respiratory rate 16 /min Jacquelin Spaulding MD Work Phone: [facility] 11-05-2023 16:12-0400 Systolic blood pressure 126 mm[Hg] Jacquelin Spaulding MD Work Phone: [facility] 05-22-2023 18:53-0500 Diastolic blood pressure 73 mm[Hg] [facility] 05-22-2023 18:53-0500 Heart rate 96 /min [facility] 05-22-2023 18:53-0500 Inhaled oxygen flow rate 2 L/min [facility] 05-22-2023 18:53-0500 Respiratory rate 18 /min [facility] 05-22-2023 18:53-0500 SaO2% (BldA) [Mass fraction] 94 % [facility] 05-22-2023 18:53-0500 Systolic blood pressure 142 mm[Hg] [facility] 05-22-2023 18:09-0500 Body temperature 99.8 [degF] [facility] 05-22-2023 17:27-0500 Body height 167.64 cm [facility] 05-22-2023 17:27-0500 Body mass index (BMI) [Ratio] 25.4 kg/m2 [facility] 05-22-2023 17:27-0500 Body weight 71.62 kg [facility] 10-06-2022 13:25-0400 Body weight 71.12 kg Jacquelin Spaulding MD Work Phone: [facility] 10-06-2022 13:25-0400 Diastolic blood pressure 78 mm[Hg] Jacquelin Spaulding MD Work Phone: [facility] 10-06-2022 13:25-0400 Heart rate 66 /min Jacquelin Spaulding MD Work Phone: [facility] 10-06-2022 13:25-0400 Respiratory rate 16 /min Jacquelin Spaulding MD Work Phone: [facility] 10-06-2022 13:25-0400 Systolic blood pressure 120 mm[Hg] Jacquelin Spaulding MD Work Phone: [facility] 06-10-2022 08:30-0500 Body weight 70.76 kg Marion Libertyhof MANAGER OF [employer].INSTALLATION SUPERINTENDENT Work Phone: [facility] 06-10-2022 08:30-0500 Diastolic blood pressure 80 mm[Hg] Marion Koenighof MANAGER OF [employer].INSTALLATION SUPERINTENDENT Work Phone: [facility] 06-10-2022 08:30-0500 Heart rate 72 /min Marion Koenighof MANAGER OF [employer].INSTALLATION SUPERINTENDENT Work Phone: [facility] 06-10-2022 08:30-0500 Respiratory rate 16 /min Marion Koenighof MANAGER OF [employer].INSTALLATION SUPERINTENDENT Work Phone: [facility] 06-10-2022 08:30-0500 Systolic blood pressure 150 mm[Hg] Marion Koenighof MANAGER OF [employer].INSTALLATION SUPERINTENDENT Work Phone: [facility] 04-22-2022 09:35-0400 Body temperature 99.5 [degF] Waqas Olmos MANAGER OF [employer].INSTALLATION SUPERINTENDENT Work Phone: [facility] [facility] 04-22-2022 09:35-0400 Body weight 68.49 kg Waqas Olmos MANAGER OF PMO.INSTALLATION SUPERINTENDENT Work Phone: [facility] 04-22-2022 09:35-0400 Diastolic blood pressure 68 mm[Hg] Waqas Olmos MANAGER OF PMO.INSTALLATION SUPERINTENDENT Work Phone: [facility] 04-22-2022 09:35-0400 Heart rate 78 /min Waqas Olmos MANAGER OF PMO.INSTALLATION SUPERINTENDENT Work Phone: [facility] 04-22-2022 09:35-0400 Respiratory rate 16 /min Waqas Olmos MANAGER OF PMO.INSTALLATION SUPERINTENDENT Work Phone: [facility] 04-22-2022 09:35-0400 SaO2% (BldA) [Mass fraction] 94 % Waqas Olmos MANAGER OF PMO.INSTALLATION SUPERINTENDENT Work Phone: [facility] 04-22-2022 09:35-0400 Systolic blood pressure 122 mm[Hg] Waqas King SHAILA Work Phone: [facility] 04-21-2022 15:33-0400 Body weight 68.13 kg Vikas Everett MD Work Phone: [facility] 04-21-2022 15:33-0400 Diastolic blood pressure 70 mm[Hg] Vikas Everett MD Work Phone: [facility] 04-21-2022 15:33-0400 Heart rate 76 /min Vikas Everett MD Work Phone: [facility] 04-21-2022 15:33-0400 Respiratory rate 16 /min Vikas Everett MD Work Phone: [facility] 04-21-2022 15:33-0400 SaO2% (BldA) [Mass fraction] 97 % Vikas Everett MD Work Phone: [facility] 04-21-2022 15:33-0400 Systolic blood pressure 136 mm[Hg] Vikas Everett MD Work Phone: [facility] 03-20-2022 09:39-0400 Body temperature 97.7 [degF] Catherine Crow MD Work Phone: [facility] 03-20-2022 09:39-0400 Body weight 68.4 kg Catherine Crow MD Work Phone: [facility] 03-20-2022 09:39-0400 Diastolic blood pressure 59 mm[Hg] Catherine Crow MD Work Phone: [facility] 03-20-2022 09:39-0400 Heart rate 68 /min Catherine Crow MD Work Phone: [facility] 03-20-2022 09:39-0400 SaO2% (BldA) [Mass fraction] 97 % Catherine Crow MD Work Phone: [facility] 03-20-2022 09:39-0400 Systolic blood pressure 137 mm[Hg] Catherine Crow MD Work Phone: [facility] 02-27-2022 16:17-0400 Body weight 66.88 kg Jacquelin Spaulding MD Work Phone: [facility] 02-27-2022 16:17-0400 Diastolic blood pressure 70 mm[Hg] Jacquelin Spaulding MD Work Phone: [facility] 02-27-2022 16:17-0400 Heart rate 68 /min Jacquelin Spaulding MD Work Phone: [facility] 02-27-2022 16:17-0400 Respiratory rate 14 /min Jacquelin Spaulding MD Work Phone: [facility] 02-27-2022 16:17-0400 SaO2% (BldA) [Mass fraction] 95 % Jacquelin Spaulding MD Work Phone: [facility] 02-27-2022 16:17-0400 Systolic blood pressure 120 mm[Hg] Jacquelin Spaulding MD Work Phone: [facility] Encounters Encounter Date Encounter Type Care Provider Facility Start: 11-09-2024 End: 11-09-2024 Office outpatient visit 25 minutes Jacquelin Spaulding MD Work Phone: [facility] Comment on above: Moderate dementia, u nspecified dementia type, unspecified whether behavioral, psychotic, or mood disturbance or anxiety (HCC) (Primary Dx); Need for vaccination; Vitamin B12 deficiency; Bilateral leg edema Start: 11-09-2024 End: 11-09-2024 ambulatory JACQUELIN SPAULDING Facility:[facility] Start: 10-05-2024 End: 10-05-2024 Follow-up encounter Jacquelin Spaulding MD Work Phone: [facility] Comment on above: Results Start: 10-05-2024 ambulatory JACQUELIN Weldon ity:[facility] Start: 10-05-2024 End: 10-05-2024 Subsequent hospital visit by physician [facility] Work Phone: Radiology Comment on above: Esophageal dysphagia [R13.19] Start: 08-21-2024 End: 08-21-2024 ambulatory JACQUELIN SPAULDING Facility:[facility] Start: 08-21-2024 End: 08-21-2024 Patient encounter procedure Jacquelin Spaulding MD Work Phone: [facility] Comment on above: Bilateral leg edema (Primary Dx); Small vessel disease (HCC); Episode of gagging; Esophageal dysphagia; Mild dementia without behavioral disturbance, psychotic disturbance, mood disturbance, or anxiety, unspecified dementia type (HCC) Start: 08-17-2024 End: 08-17-2024 [facility] Start: 08-16-2024 End: 08-16-2024 ambulatory JAQCUELIN SPAULDING Facility:[facility] Start: 08-16-2024 End: 08-16-2024 Telephone encounter Jacquelin Spaulding MD Work Phone: [address] [place] [address] Comment on above: Appointment Start: 07-14-2024 End: 07-14-2024 ambulatory Jacquelin Spaulding Facility:[facility] Start: 07-14-2024 End: 07-14-2024 Patient encounter procedure Jacquelin Spaulding MD Work Phone: [facility] Comment on above: Bilateral leg edema (Primary Dx); Mild dementia without behavioral disturbance, psychotic disturbance, mood disturbance, or anxiety, unspecified dementia type (HCC); Episode of gagging; Esophageal dysphagia Start: 07-10-2024 End: 07-10-2024 Telephone encounter Jacquelin Spaulding MD Work Phone: [facility] [place] Comment on above: Appointment Start: 05-08-2024 End: 05-08-2024 ambulatory JACQUELIN SPAULDING Facility:[facility] Start: 05-08-2024 End: 05-08-2024 Patient encounter procedure Jacquelin Spaulding MD Work Phone: [facility] Comment on above: Encounter for Medica re annual wellness exam (Primary Dx); Mild dementia without behavioral disturbance, psychotic disturbance, mood disturbance, or anxiety, unspecified dementia type (HCC); Vitamin B12 deficiency; Regular alcohol consumption; Encounter for immunization Start: 02-03-2024 End: 02-03-2024 ambulatory JACQUELIN SPAULDING Facility:[facility] Start: 02-03-2024 End: 02-03-2024 Patient encounter procedure Jacquelin Spaulding MD Work Phone: [facility] Comment on above: Fall, sequela (Prima ry Dx); Mild dementia without behavioral disturbance, psychotic disturbance, mood disturbance, or anxiety, unspecified dementia type (HCC) Start: 01-31-2024 ambulatory Rasta Antonio RN Work Phone: [facility] Start: 01-31-2024 Follow-up encounter Rasta latham RN Work Phone: [facility] Comment on above: ACRaymond CAIN RN ( ER outreach follow up) Start: 01-28-2024 End: 01-28-2024 Emergency department patient visit Helder Aiken Facility:[facility] Start: 01-28-2024 End: 01-28-2024 ambulatory JACQUELIN SPAULDING Facility:[facility] Start: 01-28-2024 End: 01-28-2024 Patient encounter procedure Gabrielle Montez APRN.INSTALLATION SUPERINTENDENT Work Phone: [facility] Comment on above: Fall, initial encoun ter (Primary Dx) Start: 01-21-2024 Refill Jacquelin marshall MD Work Phone: [facility] Comment on above: Refill Request Start: 01-17-2024 ambulatory Ernesto [facility] Start: 01-17-2024 Patient encounter procedure Ernesto Feng MA [facility] Comment on above: Population Health [facility] Start: 11-08-2023 Telephone encounter Jac[facility]verly MD [facility] Comment on above: Results Start: 11-05-2023 End: 11-05-2023 Patient encounter procedure Jacquelin Spaulding MD Work Phone: [facility] Comment on above: Mild dementia (HCC) (Primary Dx); Vitamin B12 deficiency; Mild dementia without behavioral disturbance, psychotic disturbance, mood disturbance, or anxiety, unspecified dementia type (HCC) Start: 10-25-2023 ambulatory Ernesto Feng [facility] Start: 10-25-2023 Patient encounter procedure Ernesto Feng MA [facility] Comment on above: Population Health Na vigation Outreach ([facility] CURRENT [place] workbench - AWV, [facility] Start: 05-26-2023 Telephone encounter Jacquelin beverly MD Work Phone: [facility] Comment on above: medication issue Start: 05-22-2023 End: 05-22-2023 Emergency department patient visit [facility] Work Phone: Start: 12-31-2022 Refill Jacquelin marshall MD Work Phone: [address] [place] [address] Comment on above: Refill Request Start: 10-06-2022 End: 10-06-2022 Patient encounter procedure Jacquelin Spaulding MD Work Phone: [facility] Comment on above: Mild dementia (HCC) (Primary Dx); Pulmonary emphysema, unspecified emphysema type (HCC); Vitamin B12 deficiency; Sleeping difficulties; Excessive drinking alcohol; Mild dementia, unspecified dementia type, unspecified whether behavioral, psychotic, or mood disturbance or anxiety (HCC) Start: 06-30-2022 Telephone encounter Catherine Crow MD Work Phone: [facility] Comment on above: Patient Request Start: 06-10-2022 End: 06-10-2022 Patient encounter procedure Marion Blair APRN.INSTALLATION SUPERINTENDENT Work Phone: [facility] Comment on above: Contact dermatitis, unspecified contact dermatitis type, unspecified trigger (Primary Dx); Mild dementia; Mild Alzheimer's dementia, unspecified timing of dementia onset, unspecified whether behavioral, psychotic, or mood disturbance or anxiety (HCC) Start: 04-23-2022 End: 04-23-2022 Patient encounter procedure Marion Blair APRN.INSTALLATION SUPERINTENDENT Work Phone: [facility] Comment on above: COVID-19 (Primary Dx ) Start: 04-22-2022 End: 04-22-2022 Patient encounter procedure Waqas Olmos APRN.INSTALLATION SUPERINTENDENT [facility] Comment on above: URI, acute (Primary Dx) Start: 04-21-2022 End: 04-21-2022 Patient encounter procedure Vikas Everett MD Work Phone: [facility] Comment on above: Rash (Primary Dx); Acute cough Start: 04-10-2022 End: 04-10-2022 ambulatory Catherine Crow MD Work Phone: [facility] Comment on above: 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, psychotic disturbance, mood disturbance, or anxiety (HCC) (Primary Dx) Start: 04-10-2022 End: 04-10-2022 Telemedicine consultation with patient Catherine Crow MD Work Phone: [facility] Start: 04-09-2022 End: 04-10-2022 ambulatory CATHERINE CROW Facility:[facility] Start: 04-07-2022 Telephone encounter Catherine Crow MD Work Phone: [facility] Comment on above: Results Start: 03-20-2022 End: 03-21-2022 ambulatory CATHERINE CROW Facility:[facility] Start: 03-20-2022 End: 03-20-2022 ambulatory CATHERINE CROW Facility:[facility] Start: 03-20-2022 End: 03-20-2022 Patient encounter procedure Catherine Crow MD Work Phone: [facility] Comment on above: Mild dementia (HCC) (Primary Dx); Memory deficit; Vitamin D deficiency; Mild late onset Alzheimer's dementia, unspecified whether behavioral, psychotic, or mood disturbance or anxiety (HCC) Start: 02-27-2022 End: 02-27-2022 Patient encounter procedure Jacquelin Spaulding MD Work Phone: [facility] Comment on above: Memory deficit (Prim blanca Dx); Varicose veins of both lower extremities, unspecified whether complicated Procedures Date Procedure Procedure Detail Performing Clinician Start: 11-09-2024 PFIZER-BIONTECH COVI D-19 VACCINE AGE 12+ YR (COMIRNATY) Jacquelin Spaulding MD Work Phone: Start: 10-05-2024 Radiologic exam esop hagus single contrast study Jacquelin Spaulding MD Work Phone: Start: 05-08-2024 PFIZER-BIONTECH COVI D-19 VACCINE AGE 12+ YR (COMIRNATY) Jacquelin Spaulding MD Work Phone: Start: 05-22-2023 Plain chest X-ray Start: 05-22-2023 CT cervical spine wi thout contrast Start: 05-22-2023 CT of head without contrast Start: 05-22-2023 SARS-CoV-2 & FLU Ant igen (Rapid) Plan of Treatment Date Care Activity Detail Author Start: 09-09-2031 Urine microalbumin profile [facility] Start: 08-16-2027 [facility] Start: 11-04-2026 Diabetes Screening [facility] Start: 03-20-2025 DIABETES SCREEN DIABETES SCREEN [facility] Start: 03-20-2025 Diabetes Screening [facility] Start: 02-12-2025 End: 02-12-2025 Patient encounter procedure 02/12/2025 2:40 PM EDT Office Visit Family Shaquille [place] [address] [place], [place] [id number] Jacquelin Spaulding MD [address] [facility] [place] [id number] 6 month follow up Family Sha[facility]ille [facility] Comment on above: 6 month follow up Start: 11-09-2024 End: 11-09-2024 Patient encounter procedure 11/09/2024 1:20 PM EDT Office Visit Family Shaquille [place] [address] [place] [id number] Jacquelin Spaulding MD [address] [place] [id number] 6 mo f/u Family Shaquille [facility] Comment on above: 6 mo f/u Start: 11-05-2024 Covid-19 Vaccine ( season) Covid-19 Vaccine () [facility] Start: 10-05-2024 End: 10-05-2024 Patient encounter procedure 10/05/2024 9:00 AM EDT Appointment Radiology [address] [place] [address] XR ESOPHAGRAM Radiology Comment on above: XR ESOPHAGRAM Start: 08-24-2024 End: 08-24-2024 Patient encounter procedure 08/24/2024 8:00 AM EST Office Visit [facility] [address] [place], [place] [id number] Bilateral leg edema [R60.0] [facility] Comment on above: Bilateral leg edema [R60.0] Start: 08-21-2024 End: 08-21-2024 Patient encounter procedure 08/21/2024 1:40 PM EST Office Visit [facility] [address] [place], [place] [id number] Jacquelin Spaulding MD [address] [place], [place] [phone] 1 month follow up gagging, edema [facility] Comment on above: 1 month follow up ga gging, edema Start: 08-14-2024 End: 11-13-2024 Comprehensive metabolic 2000 panel - Serum or Plasma COMPREHENSIVE METABOLIC PANEL Lab Routine Bilateral leg edema Expected: 08/14/2024 (Approximate), Expires: 11/13/2024 [facility] Work Phone: Comment on above: Expected: 08/14/2024 (Approximate), Expires: 11/13/2024 Start: 08-14-2024 End: 08-14-2024 Patient encounter procedure 08/14/2024 8:30 AM EST Appointment Radiology [address] [place] [address] Esophageal dysphagia [R13.19] Radiology Comment on above: Esophageal dysphagia [R13.19] Start: 08-04-2024 End: 08-04-2024 Patient encounter procedure 08/04/2024 12:30 PM EST Office Visit [facility] [address] [facility] [place] [address] Bilateral leg edema [R60.0] [facility] Comment on above: Bilateral leg edema [R60.0] Start: 07-14-2024 End: 07-14-2024 Patient encounter procedure 07/14/2024 1:20 PM EST Office Visit [facility] [address] [facility] [place] [address] Jacquelin Spaulding MD [address] [place], [place] [phone] Choking issues to get Swallow Evaluation. See TE 07/10/24. [facility] Comment on above: Choking issues to ge t Swallow Evaluation. See TE 07/10/24. Start: 06-28-2024 Advance Directive Discussion Advance Directive Discussion [facility] Start: 05-08-2024 End: 05-08-2024 Patient encounter procedure 05/08/2024 1:40 PM EST Office Visit [facility] Shaquille [facility] [address] [facility] [place] [address] Jacquelin Spaulding MD [address] [place], [place] [phone] 6 month follow up antonia Mary [facility] Comment on above: 6 month follow up me adamesy Mary Start: 02-27-2024 Influenza vaccination Influenza Vacc ine (#1) [facility] Start: 02-03-2024 End: 02-03-2024 Patient encounter procedure 02/03/2024 10:00 AM EDT Office Visit [facility] [address] [facility] [place] [place] [address] Jacquelin Spaulding MD [address] [facility], [place] [phone] Patient was seen in the Emergency Department (ED) Family Shaquille [facility] Comment on above: Patient was seen in the Emergency Department (ED) Start: 09-01-2023 Covid-19 Vaccine () Covid-19 Vaccine () [facility] Start: 06-28-2023 Advance Directive Discussion Advance Directive Discussion [facility] Start: 02-26-2023 Covid-19 Vaccine ( season) Covid-19 Vaccine () [facility] Start: 02-26-2023 Influenza vaccination C [facility] Start: 10-06-2022 End: 12-06-2022 VITAMIN B1 (THIAMINE), WHOLE BLOOD [facility] Work Phone: Comment on above: Expected: 10/06/2022 , Expires: 12/06/2022 Start: 06-28-2022 ADVANCE DIRECTIVE DISCUSSION ADVANCE DIRECTIVE DISCUSSION [facility] Start: 06-28-2022 DEPRESSION ASSESSMENT DEPRESSION ASS ESSMENT [facility] Start: 04-23-2022 COVID-19 VACCINE (4 - Booster for Moderna series) COVID-19 VACCINE (4 - Booster for Moderna series) [facility] Start: 04-21-2022 End: 06-21-2022 VARICELLA ZOSTER PCR [facility] Work Phone: Comment on above: Expected: 04/21/2022 , Expires: 06/21/2022 Start: 02-26-2022 Influenza vaccination INFLUENZA (#1) [facility] Start: 02-16-2022 COVID-19 VACCINE (4 - Booster for Moderna series) COVID-19 VACCINE (4 - Booster for Moderna series) [facility] Start: 01-03-2022 DIABETES SCREEN DIABETES SCREEN [facility] Start: 06-28-2021 ADVANCE DIRECTIVE DISCUSSION ADVANCE DIRECTIVE DISCUSSION [facility] Start: 06-28-2021 DEPRESSION ASSESSMENT DEPRESSION ASS ESSMENT [facility] Start: 2014 RSV Vaccine (1 - 1-d ose 75+ series) RSV Vaccine (1 - 1-dose 75+ series) [facility] Start: 1999 RSV Vaccine (1 - 1-d ose 60+ series) RSV Vaccine (1 - 1-dose 60+ series) [facility] Start: 1989 SHINGRIX VACCINE (1 of 2) SHINGRIX VACCINE (1 of 2) [facility] Start: 1957 SPIROMETRY SPIROMETRY [facility] Influenza virus A an d B RNA and SARS-CoV-2 (COVID-19) N gene panel - Respiratory specimen by LITTLE with probe detection COVID WITH FLUA+B, ROUTINE Microbiology Routine URI, acute Ordered: 04/22/2022 [facility] Work Phone: Comment on above: Ordered: 04/22/2022 Patient Education Caring for Severiano eone Who Has COVID-19 [facility] Work Phone: Patient referral [facility] Work Phone: End: 07-14-2025 US.doppler Extremity arteries - bilateral for physiologic artery study PVR ANK [facility] Vascular Lab Routine Bilateral leg edema 1 Occurrences starting 07/14/2024 until 07/14/2025 [facility] Comment on above: 1 Occurrences starti ng 07/14/2024 until 07/14/2025 End: 08-13-2025 XR Esophagus Views W contrast PO XR ESOPHAGRAM Radiology Routine Esophageal dysphagia 1 Occurrences starting 07/14/2024 until 08/13/2025 [facility] Comment on above: 1 Occurrences starti ng 07/14/2024 until 08/13/2025 [facility] Immunizations Immunization Date Immunization Notes Care Provider [facility] 11-09-2024 COVID-19 vaccine, ag e 12+ yr (PFIZER-BIONTECH COMIRNATY) Jacquelin Spaulding MD Work Phone: [facility] 05-08-2024 COVID-19 vaccine, ag e 12+ yr (PFIZER-BIONTECH COMIRNATY) Jacquelin Spaulding MD Work Phone: [facility] 05-08-2024 influenza, high dose seasonal, preservative-free Jcaquelin Spaulding MD Work Phone: [facility] 07-06-2023 influenza (HD-IIV4) vaccine, age 65+ yr, high dose, quadrivalent, PF (FLUZONE HIGH-DOSE) Ernesto Feng MA [facility] 07-06-2023 influenza virus vacc ine, unspecified formulation Ernesto Feng MA [facility] 05-03-2023 COVID-19 vaccine, ag e 12+ yr, 2022- season (MODERNA) Ernesto Feng MA [facility] 09-08-2021 tetanus toxoid, redu arelis diphtheria toxoid, and acellular pertussis vaccine, adsorbed Jacquelin Spaulding MD Work Phone: [facility] 09-18-2020 Covid (Moderna) [facility] 08-21-2020 Covid (Moderna) [facility] 04-19-2020 influenza (aIIV4) vaccine, age 65+ yr, quadrivalent, PF (FLUAD QUAD) Ernesto Feng MA [facility] 04-19-2020 influenza, high dose seasonal, preservative-free Jacquelin Spaulding MD Work Phone: [facility] 04-19-2020 pneumococcal conjuga te vaccine, 13 valent Jacquelin Spaulding MD Work Phone: [facility] 04-19-2020 influenza virus vacc ine, unspecified formulation Jacquelin Spaulding MD Work Phone: [facility] 2019 pneumococcal polysaccharide vaccine, 23 valent Jacquelin Spaulding MD Work Phone: [facility] Work Phone: 05-18-2018 pneumococcal conjuga te vaccine, 13 valent Jacquelin Spaulding MD Work Phone: [facility] 04-11-2016 influenza, seasonal, injectable, preservative free Jacquelin Spaulding MD Work Phone: [facility] Payers Date Payer Category Payer Self-pay [id number] 2018 Medicare (Managed Care) [id number] 2018 Unknown [id number] 2018 Unknown [id number] Medicare [place] [employer] [place] [id number] Medicare MEDICARE PART A B [id number] Unknown [id number] Unknown [id number] Social History Date Type Detail Facility Start: 02-27-2022 End: 05-08-2024 Tobacco smoking status NHIS Ex-smoker [facility] History of tobacco use Current smoker [facility] History of tobacco use Cigarette Smoker C [facility] Start: 02-27-2022 End: 04-15-2023 Cigarettes smoked current (pack per day) - Reported 0.8 [facility] Work Phone: Start: 02-27-2022 Tobacco use and exposure Former smokeless tobacco user [facility] History of tobacco use Snuff User [facility] Start: 02-27-2022 Alcohol intake Current non-dr fish trapper of alcohol (finding) [facility] Start: 02-27-2022 Tobacco Comment quit 30 years ago [facility] Start: 1940 Sex Assigned At Not on file C [facility] Start: 02-17-2022 End: 04-21-2022 Exposure to SARS-CoV-2 (event) Not sure [facility] Start: 03-20-2022 End: 11-09-2024 Alcohol intake Current drinker of alcohol (finding) [facility] Start: 03-30-2022 End: 04-09-2022 Exposure to SARS-CoV-2 (event) Unable to assess [facility] Start: 04-13-2022 End: 04-23-2022 Exposure to SARS-CoV-2 (event) Yes [facility] Start: 05-22-2023 Tobacco smoking stat us TXIS Unknown if ever smoked [facility] Start: 10-10-2017 Cigarettes [facility] Start: 1940 Sex Assigned At Male W [facility] Start: 04-15-2023 End: 05-08-2024 Tobacco use panel [facility] Work Phone: Adult Depression Screening Assessment 0 [facility] Work Phone: Start: 05-08-2024 Tobacco use and exposure Smokeless tobacco non-user [facility] How often to you hav e a drink containing alcohol? 4 or more times a week [facility] How many standard drinks containing alcohol do you have on a typical day? 5 or 6 [facility] How often do you hav e 6 or more drinks on 1 occasion? Daily or almost daily [facility] Medical Equipment Procedure Code Equipment Code Equipment Origin al Text Equipment Identifier Dates MESH,PERFIX FLAT PRESHAPED FDA Start: 03-24-2018 Mental Status Date Assessment Result Facility 05-22-2023 Cognitive function Level Of Cons ciousness Awake;Alert;Appropriate;Follow s Commands [facility] [place] Work Phone: Clinical Notes 02-27-2022 to 11-09-2024 Jacquelin Spaulding MD - 11/09/2024 1:20 PM EDTTelephone Encounter - Chelo Graham MA - 10/05/2024 4:57 PM EDTTelephone Encounter - Chelo Graham MA - 10/05/2024 4:57 PM EDT Note Date & Type Note Facility 11-09-2024 History of Presen t illness Narrative Chief Complaint Patient presents with: 6 Month Exam HPI Melvin Riddle is a 84 year old male who presents here today for 6 month follow up. Here with his daughter who is his pega developer. He has another daughter who has a special needs child with heart issues. Has depends that he wears but at times tends to takes it off or he will have accidents because he waits too long to go. No chest pains, dizziness, or SOB. No choking episodes for some time. Was unable to complete the swallow test because pt was not able to cooperate with the procedure. Unsure what triggers these episodes. Daughter is watching the foods that he is eating and what might be triggering the choking episodes. Edema: benny legs; stable with Lasix 20 mg daily. Mild Dementia: Taking Namenda 5 mg 1 pill BID. Pt has had evaluation by Geriatrics Dr. Crow in the past. Daughter states that the testing was only partially completed which pt daughter feels does not warrant an accurate or conclusive dx. Daughter feels the dementia has progressed beyond mild. Daughter feels she is needing more assistance with caring for him, feels she needs some Home Health care and would prefer a male nurse to help with him. He is still walking with the dogs but is not allowed to walk on his own any longer as he has been walking down the middle of the road. Pt does not drive, he voluntarily gave that up. Daughter needs someone who can stay with him while she goes to her appointments, may not need someone there every day. Her nephew was helping to watch him when she needed to leave the home but his job does not allow him to be able to do this anymore. She states that he will walk out the door with the dog when she is in the shower or she states he has locked her out of the home at times when she is doing outdoor work. Past medical history, appointments, medications, allergies reviewed. Previous Medical History No past medical history on file. Previous Surgical History PAST SURGICAL HISTORY Procedure Laterality Date COLONOSCOPY N/A 02/22/2018 Dr. Kaye, [facility] EGD N/A 02/22/2018 Dr. Kaye at [facility] HERNIA REPAIR HX N/A 02/[address] Kaye PAST SURGICAL HISTORY OF 01/2023 Hx of b/l cataract surgery SKIN LESION Left Left pinna, removed. Family History FAMILY HISTORY Problem Relation Age of Onset other (myocardial infarction) Mother 44 COPD Father other (pneumonia) Father 80 Patient Allergies ALLERGIES No Known Allergies Current Medications Current Outpatient Medications on File Prior to Visit Medication Sig furosemide (LASIX) 20 mg tablet Take 1 tablet by mouth once daily. memantine (NAMENDA) 5 mg tablet Take 1 tablet by mouth two times a day. cyanocobalamin (VITAMIN B-12) 1,000 mcg tab Take 1 tablet by mouth two times a day. No current facility-administered medications on file prior to visit. Social History Social History Tobacco Use Smoking status: Former Current packs/day: 0.75 Average packs/day: 0.8 packs/day for 25.0 years (18.8 ttl pk-yrs) Types: Cigarettes Smokeless tobacco: Never Tobacco comments: quit 30 years ago Vaping Use Vaping status: Never Used Substance Use Topics Alcohol use: Yes Drug use: Never EXAM: BP 128/74 Pulse 80 Resp 14 Wt 78.6 kg (173 lb 4.5 oz) BMI 30.21 kg/m General Appearance: Well appearing, alert, in no acute distress, well-hydrated, well nourished.. Lungs: Lungs clear to auscultation. No wheezing, rhonchi, rales.. Heart: RRR without murmur, gallop, or rubs. No ectopy. Extremities: mild edema to both ankles. Health Maintenance List Shingrix Vaccine(1 of 2) Never done RSV Vaccine(1 - 1-dose 75+ series) Never done Advance Directive Discussion Never done Covid-19 Vaccine( season) due on 11/05/2024 Diabetes Screening due on 08/16/2027 DTaP,Tdap,Td Vaccine(2 - Td or Tdap) due on 09/09/2031 Influenza Vaccine Completed Pneumococcal Vaccine: 50+ Completed Data reviewed None ASSESSMENT/PLAN: 1. Moderate dementia, unspecified dementia type, unspecified whether behavioral, psychotic, or mood disturbance or anxiety (HCC) - ICD9: 294.20, ICD10: F03.B0 (primary diagnosis) Worsening, needing more care Continue with Namenda BID Daughter will be looking into Home Health Options 2. Need for vaccination - ICD9: V05.9, ICD10: Z23 Covid vaccine 3. Vitamin B12 deficiency - ICD9: 266.2, ICD10: E53.8 Continue current medications. 4. Bilateral leg edema - ICD9: 782.3, ICD10: R60.0 Controlled Continue current medications. Follow up in 3 months. I agree with the Chief Complaint, ROS, and Past Histories independently gathered by the clinical residential support specialist and the remaining scribed note accurately describes my personal service to the patient. Medical Decision Making: Problems: Moderate: 1+ chronic illnesses with change Risk: Moderate: Drug management Medical Decision Making Level: 4 - Moderate Jacquelin Spaulding MD The documentation for this note was completed by Chelo Graham MA acting as scribe for Jacquelin Spaulding MD. November 09, 2024 1:49 PM. Chelo Graham MA documented in this encounter [facility] 11-09-2024 Note HNO ID: [id number] Author: JACQUELIN SPAULDING MD Service: ? Author Type: Physician Type: Progress Notes Filed: 11/09/2024 16:03 Note Text: Chief Complaint Patient presents with: 6 Month Exam HPI Melvin Riddle is a 84 year old male who presents here today for 6 month follow up. Here with his daughter who is his pega developer. He has another daughter who has a special needs child with heart issues. Has depends that he wears but at times tends to takes it off or he will have accidents because he waits too long to go. No chest pains, dizziness, or SOB. No choking episodes for some time. Was unable to complete the swallow test because pt was not able to cooperate with the procedure. Unsure what triggers these episodes. Daughter is watching the foods that he is eating and what might be triggering the choking episodes. Edema: benny legs; stable with Lasix 20 mg daily. Mild Dementia: Taking Namenda 5 mg 1 pill BID. Pt has had evaluation by Geriatrics Dr. Crow in the past. Daughter states that the testing was only partially completed which pt daughter feels does not warrant an accurate or conclusive dx. Daughter feels the dementia has progressed beyond mild. Daughter feels she is needing more assistance with caring for him, feels she needs some Home Health care and would prefer a male nurse to help with him. He is still walking with the dogs but is not allowed to walk on his own any longer as he has been walking down the middle of the road. Pt does not drive, he voluntarily gave that up. Daughter needs someone who can stay with him while she goes to her appointments, may not need someone there every day. Her nephew was helping to watch him when she needed to leave the home but his job does not allow him to be able to do this anymore. She states that he will walk out the door with the dog when she is in the shower or she states he has locked her out of the home at times when she is doing outdoor work. Past medical history, appointments, medications, allergies reviewed. Previous Medical History No past medical history on file. Previous Surgical History PAST SURGICAL HISTORY Procedure Laterality Date COLONOSCOPY N/A 02/22/2018 Dr. Kaye, [facility] EGD N/A 02/22/2018 Dr. Kaye at [facility] HERNIA REPAIR HX N/A 02/[address] Kaye PAST SURGICAL HISTORY OF 01/2023 Hx of b/l cataract surgery SKIN LESION Left Left pinna, removed. Family History FAMILY HISTORY Problem Relation Age of Onset other (myocardial infarction) Mother 44 COPD Father other (pneumonia) Father 80 Patient Allergies ALLERGIES No Known Allergies Current Medications Current Outpatient Medications on File Prior to Visit Medication Sig furosemide (LASIX) 20 mg tablet Take 1 tablet by mouth once daily. memantine (NAMENDA) 5 mg tablet Take 1 tablet by mouth two times a day. cyanocobalamin (VITAMIN B-12) 1,000 mcg tab Take 1 tablet by mouth two times a day. No current facility-administered medications on file prior to visit. Social History Social History Tobacco Use Smoking status: Former Current packs/day: 0.75 Average packs/day: 0.8 packs/day for 25.0 years (18.8 ttl pk-yrs) Types: Cigarettes Smokeless tobacco: Never Tobacco comments: quit 30 years ago Vaping Use Vaping status: Never Used Substance Use Topics Alcohol use: Yes Drug use: Never EXAM: BP 128/74 Pulse 80 Resp 14 Wt 78.6 kg (173 lb 4.5 oz) BMI 30.21 kg/m? General Appearance: Well appearing, alert, in no acute distress, well-hydrated, well nourished.. Lungs: Lungs clear to auscultation. No wheezing, rhonchi, rales.. Heart: RRR without murmur, gallop, or rubs. No ectopy. Extremities: mild edema to both ankles. Health Maintenance List Shingrix Vaccine(1 of 2) Never done RSV Vaccine(1 - 1-dose 75+ series) Never done Advance Directive Discussion Never done Covid-19 Vaccine() due on 11/05/2024 Diabetes Screening due on 08/16/2027 DTaP,Tdap,Td Vaccine(2 - Td or Tdap) due on 09/09/2031 Influenza Vaccine Completed Pneumococcal Vaccine: 50+ Completed Data reviewed None ASSESSMENT/PLAN: 1. Moderate dementia, unspecified dementia type, unspecified whether behavioral, psychotic, or mood disturbance or anxiety (HCC) - ICD9: 294.20, ICD10: F03.B0 (primary diagnosis) Worsening, needing more care Continue with Namenda BID Daughter will be looking into Home Health Options 2. Need for vaccination - ICD9: V05.9, ICD10: Z23 Covid vaccine 3. Vitamin B12 deficiency - ICD9: 266.2, ICD10: E53.8 Continue current medications. 4. Bilateral leg edema - ICD9: 782.3, ICD10: R60.0 Controlled Continue current medications. Follow up in 3 months. I agree with the Chief Complaint, ROS, and Past Histories independently gathered by the clinical residential support specialist and the remaining scribed note accurately describes my personal service to the patient. Medic (more content not included)... [facility] 10-05-2024 Telephone encounter Note Pt notified of results via [employer]. Chelo Graham Ma [facility] 10-05-2024 Miscellaneous Notes Pt notified of results via [employer]. Chelo Graham Ma Please notify patient's daughter that his swallowing test looked OK; no blockages were seen, and he seemed to swallow without aspiration. I think we can continue to monitor for now. Jacquelin Spaulding MD documented in this encounter [facility] 10-05-2024 Telephone encounter Note Please notify patient's daughter that his swallowing test looked OK; no blockages were seen, and he seemed to swallow without aspiration. I think we can continue to monitor for now. Jacquelin Spaulding MD [facility] 10-05-2024 History of Presen t illness Narrative Radiology Service Progress Note PATIENT NAME: Melvin Riddle DATE OF SERVICE: October 05, 2024 TIME: 9:55 AM PATIENT IDENTITY VERIFICATION COMPLETED USING TWO (2) IDENTIFIERS: Name and Date of confirmed by patient verbally. FALL SCREENING: Has the patient had 2 falls in the last year or 1 fall with injury or currently using an Ambulatory Assistive Device (Walker, Cane, Wheelchair, Crutches, etc.)? No PATIENT GENDER DATA: Assigned male at PATIENT RELEVANT IMPLANT DATA REVIEWED: Not Applicable PATIENT PRESENTS WITH AN IMPLANTABLE OR ATTACHED AREA COUNSELOR: No RADIOLOGY DEPARTMENT: General X-ray: Exam(s) Completed: GI/ Procedure(s): Esophogram with barium contrast PERIPHERAL IV DATA: Not applicable SIGNED BY: RT Lula(Debby) October 05, 2024 9:55 AM documented in this encounter [facility] 10-05-2024 Note HNO ID: [id number] Author: MERYL WALLER RT(R) Service: Radiology Author Type: Technologist Type: Progress Notes Filed: 10/05/2024 09:56 Note Text: Radiology Service Progress Note PATIENT NAME: Melvin Riddle DATE OF SERVICE: October 05, 2024 TIME: 9:55 AM PATIENT IDENTITY VERIFICATION COMPLETED USING TWO (2) IDENTIFIERS: Name and Date of confirmed by patient verbally. FALL SCREENING: Has the patient had 2 falls in the last year or 1 fall with injury or currently using an Ambulatory Assistive Device (Walker, Cane, Wheelchair, Crutches, etc.)? No PATIENT GENDER DATA: Assigned male at PATIENT RELEVANT IMPLANT DATA REVIEWED: Not Applicable PATIENT PRESENTS WITH AN IMPLANTABLE OR ATTACHED AREA COUNSELOR: No RADIOLOGY DEPARTMENT: General X-ray: Exam(s) Completed: GI/ Procedure(s): Esophogram with barium contrast PERIPHERAL IV DATA: Not applicable SIGNED BY: RT Lula(Debby) October 05, 2024 9:55 AM [facility] 08-21-2024 Instructions Flower Narvaez MA - 08/21/2024 2:01 PM EST Follow up in October as scheduled. 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 We did go ahead and send in prescription to [facility] for you. Keep swallow test scheduled in September. documented in this encounter [facility] 08-21-2024 History of Presen t illness Narrative Chief Complaint Patient presents with: F/U 1 month HPI Melvin Riddle is a 84 year old male who presents here today for a 1 month follow up. Pt here today with his daughter for a 1 month follow up. At last visit pt's daughter noted that when pt is eating it sounds like he's gagging or choking on his food. Denies episodes getting any worse or better, since last visit.Pt was ordered XR esophagram, this is currently scheduled in September. Edema - Chronic intermittent b/l lower leg and feet swelling. Daughter states that this will occur a couple times per year in his right leg, with occasional in his left leg. Has been seen by Podiatry who recommended a circulation test, but this was not completed. Pt was started on Lasix 20 mg once daily. They have completed the 30 days of prescription and f/u in office to review improvement. Daughter notes that edema has improved but continues to have some edema. Edema in lower legs R>L. Some discoloration in right lower leg. Vascular testing was ordered and completed on 08/17/24. 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 Left side normal. Daughter has questions about mcc use of Lasix and what are possible issues with medical terminologist use of Lasix if any. Noted darker colored urine, drinking less beer at previous visit. CMP was ordered. Past medical history, appointments, medications, allergies reviewed. Previous Medical History No past medical history on file. Previous Surgical History PAST SURGICAL HISTORY Procedure Laterality Date COLONOSCOPY N/A 02/22/2018 Dr. Kaye, [facility] EGD N/A 02/22/2018 Dr. Kaye at [facility] HERNIA REPAIR HX N/A 02/[address] Kaye PAST SURGICAL HISTORY OF 01/2023 Hx of b/l cataract surgery SKIN LESION Left Left pinna, removed. Family History FAMILY HISTORY Problem Relation Age of Onset other (myocardial infarction) Mother 44 COPD Father other (pneumonia) Father 80 Patient Allergies ALLERGIES No Known Allergies Current Medications Current Outpatient Medications on File Prior to Visit Medication Sig furosemide (LASIX) 20 mg tablet Take 1 tablet by mouth once daily. memantine (NAMENDA) 5 mg tablet Take 1 tablet by mouth two times a day. cyanocobalamin (VITAMIN B-12) 1,000 mcg tab Take 1 tablet by mouth two times a day. No current facility-administered medications on file prior to visit. Social History Social History Tobacco Use Smoking status: Former Current packs/day: 0.75 Average packs/day: 0.8 packs/day for 25.0 years (18.8 ttl pk-yrs) Types: Cigarettes Smokeless tobacco: Never Tobacco comments: quit 30 years ago Vaping Use Vaping status: Never Used Substance Use Topics Alcohol use: Yes Drug use: Never EXAM: BP 130/76 (BP Site: Left Arm, BP Position: Sitting, BP Cuff Size: Regular Adult) Pulse 92 Resp 20 Wt 80.7 kg (177 lb 14.6 oz) BMI 31.02 kg/m General Appearance: Well appearing, alert, in no acute distress, well-hydrated, well nourished. and Overweight. Lungs: Lungs clear to auscultation. No wheezing, rhonchi, rales.. Heart: RRR without murmur, gallop, or rubs. No ectopy. Extremities: Edema: Minimal lower leg edema noted R>L with some skin discoloration noted on right lower leg.. Health Maintenance List Spirometry Never done Shingrix Vaccine(1 of 2) Never done RSV Vaccine(1 - 1-dose 75+ series) Never done Advance Directive Discussion Never done Covid-19 Vaccine() due on 11/05/2024 Diabetes Screening due on 08/16/2027 DTaP,Tdap,Td Vaccine(2 - Td or Tdap) due on 09/09/2031 Influenza Vaccine Completed Pneumococcal Vaccine: 50+ Completed Data reviewed Appointment on 08/16/2024 Component Date Value Protein, Total 08/16/2024 7.2 Albumin 08/16/2024 4.6 Calcium, Total 08/16/2024 9.4 Bilirubin, Total 08/16/2024 0.5 Alkaline Phosphatase 08/16/2024 77 AST 08/16/2024 17 ALT 08/16/2024 24 Glucose 08/16/2024 118 (H) BUN 08/16/2024 19 Creatinine 08/16/2024 1.00 Sodium 08/16/2024 142 Potassium 08/16/2024 4.1 Chloride 08/16/2024 103 CO2 08/16/2024 27 Anion Gap 08/16/2024 12 Estimated Glomerular Pablo* 08/16/2024 74 ASSESSMENT/PLAN: 1. Bilateral leg edema - ICD9: 782.3, ICD10: R60.0 (primary diagnosis) - Continue low dosage of Lasix 20 mg once daily - Continue walking 2. Small vessel disease (HCC) - ICD9: 443.9, ICD10: I73.9 - Use Lasix 3. Episode of gagging - ICD9: 478.29, ICD10: R19.8 - Continue to complete XR as scheduled - Follow up as scheduled 4. Esophageal dysphagia - ICD9: 787.29, ICD10: R13.19 - Continue XR as scheduled 5. Mild dementia without behavioral disturbance, psychotic disturbance, mood disturbance, or anxiety, unspecified dementia type (HCC) - ICD9: 294.10, ICD10: F03.A0 - Stable Follow up in October as scheduled. I agree with the Chief Complaint, ROS, and Past Histories independently gathered by the clinical residential support specialist and the remaining scribed note accurately describes my personal service to the patient. Medical Decision Making: Problems: Moderate: 2+ stable chronic illnesses Data: Unique test result(s) reviewed: 2 Risk: Moderate: Drug management Medical Decision Making Level: 4 - Moderate Jacquelin Spaulding MD The documentation for this note was completed by Flower Narvaez MA acting as scribe for Jacquelin Spaulding MD. August 21, 2024 1:58 PM. Flower Narvaez MA documented in this encounter [facility] 08-21-2024 Note HNO ID: [id number] Author: JACQUELIN SPAULDING MD Service: ? Author Type: Physician Type: Progress Notes Filed: 08/21/2024 14:05 Note Text: Chief Complaint Patient presents with: F/U 1 month HPI Melvin Riddle is a 84 year old male who presents here today for a 1 month follow up. Pt here today with his daughter for a 1 month follow up. At last visit pt's daughter noted that when pt is eating it sounds like he's gagging or choking on his food. Denies episodes getting any worse or better, since last visit.Pt was ordered XR esophagram, this is currently scheduled in September. Edema - Chronic intermittent b/l lower leg and feet swelling. Daughter states that this will occur a couple times per year in his right leg, with occasional in his left leg. Has been seen by Podiatry who recommended a circulation test, but this was not completed. Pt was started on Lasix 20 mg once daily. They have completed the 30 days of prescription and f/u in office to review improvement. Daughter notes that edema has improved but continues to have some edema. Edema in lower legs R>L. Some discoloration in right lower leg. Vascular testing was ordered and completed on 08/17/24. 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 Left side normal. Daughter has questions about medical terminologist use of Lasix and what are possible issues with mcc use of Lasix if any. Noted darker colored urine, drinking less beer at previous visit. CMP was ordered. Past medical history, appointments, medications, allergies reviewed. Previous Medical History No past medical history on file. Previous Surgical History PAST SURGICAL HISTORY Procedure Laterality Date COLONOSCOPY N/A 02/22/2018 Dr. Kaye, [facility] EGD N/A 02/22/2018 Dr. Kaye at [facility] HERNIA REPAIR HX N/A 02/[address] Kaye PAST SURGICAL HISTORY OF 01/2023 Hx of b/l cataract surgery SKIN LESION Left Left pinna, removed. Family History FAMILY HISTORY Problem Relation Age of Onset other (myocardial infarction) Mother 44 COPD Father other (pneumonia) Father 80 Patient Allergies ALLERGIES No Known Allergies Current Medications Current Outpatient Medications on File Prior to Visit Medication Sig furosemide (LASIX) 20 mg tablet Take 1 tablet by mouth once daily. memantine (NAMENDA) 5 mg tablet Take 1 tablet by mouth two times a day. cyanocobalamin (VITAMIN B-12) 1,000 mcg tab Take 1 tablet by mouth two times a day. No current facility-administered medications on file prior to visit. Social History Social History Tobacco Use Smoking status: Former Current packs/day: 0.75 Average packs/day: 0.8 packs/day for 25.0 years (18.8 ttl pk-yrs) Types: Cigarettes Smokeless tobacco: Never Tobacco comments: quit 30 years ago Vaping Use Vaping status: Never Used Substance Use Topics Alcohol use: Yes Drug use: Never EXAM: BP 130/76 (BP Site: Left Arm, BP Position: Sitting, BP Cuff Size: Regular Adult) Pulse 92 Resp 20 Wt 80.7 kg (177 lb 14.6 oz) BMI 31.02 kg/m? General Appearance: Well appearing, alert, in no acute distress, well-hydrated, well nourished. and Overweight. Lungs: Lungs clear to auscultation. No wheezing, rhonchi, rales.. Heart: RRR without murmur, gallop, or rubs. No ectopy. Extremities: Edema: Minimal lower leg edema noted R>L with some skin discoloration noted on right lower leg.. Health Maintenance List Spirometry Never done Shingrix Vaccine(1 of 2) Never done RSV Vaccine(1 - 1-dose 75+ series) Never done Advance Directive Discussion Never done Covid-19 Vaccine() due on 11/05/2024 Diabetes Screening due on 08/16/2027 DTaP,Tdap,Td Vaccine(2 - Td or Tdap) due on 09/09/2031 Influenza Vaccine Completed Pneumococcal Vaccine: 50+ Completed Data reviewed Appointment on 08/16/2024 Component Date Value Protein, Total 08/16/2024 7.2 Albumin 08/16/2024 4.6 Calcium, Total 08/16/2024 9.4 Bilirubin, Total 08/16/2024 0.5 Alkaline Phosphatase 08/16/2024 77 AST 08/16/2024 17 ALT 08/16/2024 24 Glucose 08/16/2024 118 (H) BUN 08/16/2024 19 Creatinine 08/16/2024 1.00 Sodium 08/16/2024 142 Potassium 08/16/2024 4.1 Chloride 08/16/2024 103 CO2 08/16/2024 27 Anion Gap 08/16/2024 12 Estimated Glomerular Pablo* 08/16/2024 74 ASSESSMENT/PLAN: 1. Bilateral leg edema - ICD9: 782.3, ICD10: R60.0 (primary diagnosis) - Continue low dosage of Lasix 20 mg once daily - Continue walking 2. Small vessel disease (HCC) - ICD9: 443.9, ICD10: I73.9 - Use Lasix 3. Episode of gagging - ICD9: 478.29, ICD10: R19.8 - Continue to complete XR as scheduled - Follow up as scheduled 4. Esophageal dysphagia - ICD9: 787.29, ICD10: R13.19 - Continue XR as scheduled 5. Mild dementia without behavioral disturbance, psychotic disturbance, mood disturbance, or anxiety, unspecified dementia type (HCC) - ICD9: 294.10, ICD10: F03.A0 - Stable Fo (more content not included)... [facility] 08-16-2024 Telephone encounter Note Patients contact ([place]) called asking if you wanted to postpone Melvin's upcoming appointment on 08/21? He is not having the Vascular test done until 08/24. Please advise, Thank you [facility] 08-16-2024 Miscellaneous Notes Patients contact ([place]) called asking if you wanted to postpone Melvin's upcoming appointment on 08/21? He is not having the Vascular test done until 08/24. Please advise, Thank you documented in this encounter [facility] 07-14-2024 History of Presen t illness Narrative Chief Complaint Patient presents with: gagging issues: Some trouble swallowing Edema: Bilateral feet and legs HPI Melvin Riddle is a 84 year old male who presents here today for discussion of swallow test. Pt's daughter contacted the office on 07/10/24 with an update about patient. Daughter states that when pt is eating it sounds likes he's choking or gagging. It is not getting worse but not getting any better. He has no teeth and refuses to wear his dentures. She accomodates his diet, but still tries to add in the harder foods by cutting them into smaller pieces. He's raspy and brings up a lot phlegm but lungs have always been clear when evaluated. Per Daughter, pt has been told he would benefit from a swallow study. He had an episode last year of ending up in ER in [place] due to food stuck in esophagus. Passed spontaneously. No EGD done.. Edema: Bilateral lower legs and feet that has been going on for a long time. Has been seen by reclamation engineer who suggested circulation test. Does not improve over night. Right foot feels colder than the left per daughter. Daughter states his urine is dark but not tea dark. He is drinking less beer by his choice. Dementia stable on Namenda Past medical history, appointments, medications, allergies reviewed. Previous Medical History No past medical history on file. Previous Surgical History PAST SURGICAL HISTORY Procedure Laterality Date COLONOSCOPY N/A 02/22/2018 Dr. Kaye, [facility] EGD N/A 02/22/2018 Dr. Kaye at [facility] HERNIA REPAIR HX N/A 02/[address] Kaye PAST SURGICAL HISTORY OF 01/2023 Hx of b/l cataract surgery SKIN LESION Left Left pinna, removed. Family History FAMILY HISTORY Problem Relation Age of Onset other (myocardial infarction) Mother 44 COPD Father other (pneumonia) Father 80 Patient Allergies ALLERGIES No Known Allergies Current Medications Current Outpatient Medications on File Prior to Visit Medication Sig memantine (NAMENDA) 5 mg tablet Take 1 tablet by mouth two times a day. cyanocobalamin (VITAMIN B-12) 1,000 mcg tab Take 1 tablet by mouth two times a day. No current facility-administered medications on file prior to visit. Social History Social History Tobacco Use Smoking status: Former Current packs/day: 0.75 Average packs/day: 0.8 packs/day for 25.0 years (18.8 ttl pk-yrs) Types: Cigarettes Smokeless tobacco: Never Tobacco comments: quit 30 years ago Vaping Use Vaping status: Never Used Substance Use Topics Alcohol use: Yes Drug use: Never EXAM: BP 130/80 Pulse 74 Resp 16 Wt 81.3 kg (179 lb 3.7 oz) BMI 31.25 kg/m General Appearance: Well appearing, alert, in no acute distress, well-hydrated, well nourished.. Lungs: Lungs clear to auscultation. No wheezing, rhonchi, rales.. Heart: RRR without murmur, gallop, or rubs. No ectopy. Extremities: Edema: bilateral ankle and feet, Right worse Health Maintenance List Spirometry Never done Shingrix Vaccine(1 of 2) Never done RSV Vaccine(1 - 1-dose 75+ series) Never done Advance Directive Discussion Never done Diabetes Screening due on 11/04/2026 DTaP,Tdap,Td Vaccine(2 - Td or Tdap) due on 09/09/2031 Influenza Vaccine Completed Covid-19 Vaccine Completed Pneumococcal Vaccine: 50+ Completed Data reviewed None ASSESSMENT/PLAN: 1. Bilateral leg edema - ICD9: 782.3, ICD10: R60.0 (primary diagnosis) Start Lasix 20 mg daily in AM PVR testing ordered 2. Mild dementia without behavioral disturbance, psychotic disturbance, mood disturbance, or anxiety, unspecified dementia type (HCC) - ICD9: 294.10, ICD10: F03.A0 Stable Continue current medications. 3. Episode of gagging - ICD9: 478.29, ICD10: R19.8 Swallow study ordered Follow up in 1 month. Labs in 1 month. I agree with the Chief Complaint, ROS, and Past Histories independently gathered by the clinical residential support specialist and the remaining scribed note accurately describes my personal service to the patient. Medical Decision Making: Problems: Moderate: New problem with uncertain prognosis Data: Unique test(s) ordered: 3+ Medical Decision Making Level: 4 - Moderate Jacquelin Spaulding MD The documentation for this note was completed by Chelo Graham MA acting as scribe for Jacquelin Spaulding MD. July 14, 2024 1:15 PM. Chelo Graham MA documented in this encounter [facility] 07-14-2024 Note HNO ID: [id number] Author: JACQUELIN SPAULDING MD Service: ? Author Type: Physician Type: Progress Notes Filed: 07/14/2024 15:31 Note Text: Chief Complaint Patient presents with: gagging issues: Some trouble swallowing Edema: Bilateral feet and legs HPI Melvin Riddle is a 84 year old male who presents here today for discussion of swallow test. Pt's daughter contacted the office on 07/10/24 with an update about patient. Daughter states that when pt is eating it sounds likes he's choking or gagging. It is not getting worse but not getting any better. He has no teeth and refuses to wear his dentures. She accomodates his diet, but still tries to add in the harder foods by cutting them into smaller pieces. He's raspy and brings up a lot phlegm but lungs have always been clear when evaluated. Per Daughter, pt has been told he would benefit from a swallow study. He had an episode last year of ending up in ER in [place] due to food stuck in esophagus. Passed spontaneously. No EGD done.. Edema: Bilateral lower legs and feet that has been going on for a long time. Has been seen by reclamation engineer who suggested circulation test. Does not improve over night. Right foot feels colder than the left per daughter. Daughter states his urine is dark but not tea dark. He is drinking less beer by his choice. Dementia stable on Namenda Past medical history, appointments, medications, allergies reviewed. Previous Medical History No past medical history on file. Previous Surgical History PAST SURGICAL HISTORY Procedure Laterality Date COLONOSCOPY N/A 02/22/2018 Dr. Kaye, [facility] EGD N/A 02/22/2018 Dr. Kaye at [facility] HERNIA REPAIR HX N/A 02/[address] Kaye PAST SURGICAL HISTORY OF 01/2023 Hx of b/l cataract surgery SKIN LESION Left Left pinna, removed. Family History FAMILY HISTORY Problem Relation Age of Onset other (myocardial infarction) Mother 44 COPD Father other (pneumonia) Father 80 Patient Allergies ALLERGIES No Known Allergies Current Medications Current Outpatient Medications on File Prior to Visit Medication Sig memantine (NAMENDA) 5 mg tablet Take 1 tablet by mouth two times a day. cyanocobalamin (VITAMIN B-12) 1,000 mcg tab Take 1 tablet by mouth two times a day. No current facility-administered medications on file prior to visit. Social History Social History Tobacco Use Smoking status: Former Current packs/day: 0.75 Average packs/day: 0.8 packs/day for 25.0 years (18.8 ttl pk-yrs) Types: Cigarettes Smokeless tobacco: Never Tobacco comments: quit 30 years ago Vaping Use Vaping status: Never Used Substance Use Topics Alcohol use: Yes Drug use: Never EXAM: BP 130/80 Pulse 74 Resp 16 Wt 81.3 kg (179 lb 3.7 oz) BMI 31.25 kg/m? General Appearance: Well appearing, alert, in no acute distress, well-hydrated, well nourished.. Lungs: Lungs clear to auscultation. No wheezing, rhonchi, rales.. Heart: RRR without murmur, gallop, or rubs. No ectopy. Extremities: Edema: bilateral ankle and feet, Right worse Health Maintenance List Spirometry Never done Shingrix Vaccine(1 of 2) Never done RSV Vaccine(1 - 1-dose 75+ series) Never done Advance Directive Discussion Never done Diabetes Screening due on 11/04/2026 DTaP,Tdap,Td Vaccine(2 - Td or Tdap) due on 09/09/2031 Influenza Vaccine Completed Covid-19 Vaccine Completed Pneumococcal Vaccine: 50+ Completed Data reviewed None ASSESSMENT/PLAN: 1. Bilateral leg edema - ICD9: 782.3, ICD10: R60.0 (primary diagnosis) Start Lasix 20 mg daily in AM PVR testing ordered 2. Mild dementia without behavioral disturbance, psychotic disturbance, mood disturbance, or anxiety, unspecified dementia type (HCC) - ICD9: 294.10, ICD10: F03.A0 Stable Continue current medications. 3. Episode of gagging - ICD9: 478.29, ICD10: R19.8 Swallow study ordered Follow up in 1 month. Labs in 1 month. I agree with the Chief Complaint, ROS, and Past Histories independently gathered by the clinical residential support specialist and the remaining scribed note accurately describes my personal service to the patient. Medical Decision Making: Problems: Moderate: New problem with uncertain prognosis Data: Unique test(s) ordered: 3+ Medical Decision Making Level: 4 - Moderate Jacquelin Spaulding MD The documentation for this note was completed by Chelo Graham MA acting as scribe for Jacquelin Spaulding MD. July 14, 2024 1:15 PM. Chelo Graham MA [facility] 07-10-2024 Telephone encounter Note Pts daughter calls in and reports Pt has been told before he would benefit from a swallow study, but he has never had one done. She states he does sound like he is choking when he is eating. She reports Pt has no teeth and refuses to wear his dentures. She states she accomodates his diet, but states she still goes for the harder food, she just cuts it into smaller pieces. She states he sounds like he has something in his lungs, but 'they' have checked and found nothing. I asked what he has had done to check and she didn't go into detail. She reports Pt sounds raspy and brings up phlegm. [facility] 07-10-2024 Miscellaneous Notes Pts daughter calls in and reports Pt has been told before he would benefit from a swallow study, but he has never had one done. She states he does sound like he is choking when he is eating. She reports Pt has no teeth and refuses to wear his dentures. She states she accomodates his diet, but states she still goes for the harder food, she just cuts it into smaller pieces. She states he sounds like he has something in his lungs, but 'they' have checked and found nothing. I asked what he has had done to check and she didn't go into detail. She reports Pt sounds raspy and brings up phlegm. documented in this encounter [facility] 05-08-2024 History of Presen t illness Narrative Images from the original note were not included. Melvin Riddle is a 83 year old male here for a Medicare wellness visit. Pt here today with daughterSalina. GI/Uro - Denies any stomach, bowel or urinary issues. Gets up a couple times per night to urinate. Cardio - Denies any chest pain, sob or dizziness. Diet/Exercise - Admits to watching diet some not completely, but daughter does try to watch diet. Has to eat gluten free. Exercises by walking the dog daily almost a mile. Did have to put one dog down. Daughter has an nicole to track him. On average he walks for 53 minutes. Memory - Pt states that memory is okay. Daughter states that it's on par for what's going on and but going a gradual decline. Overall his mood and demeanor are fine, doesn't get agitated. Does forget to tell her at times when he's taking the dog for a walk, but the dog is chipped. Takes Namenda 5 mg 1 tab po bid and B12 1,000 mg once daily. See Health Risk Assessment below on pt needs at home. Alcohol - Trying to work on cutting back. Down to 6 alcoholic beverages per day. Was being seen by [facility] for a toe issue per daughter. Had ingrown toenail that has been taken care of and legs were looked at during visit. HM - Agreeable to Flu and Covid vaccine. Discussed with pt about Shingles/RSV vaccine checking with insurance. Medicare Health Risk Assessment General Health Very good Exercise: Minutes/Day 60 min Exercise: Days/Week 7 days Alcohol: Daily Use 4 or more times a week Alcohol: Drinks/Day 5 or 6 Alcohol: 6 or more drinks Daily or almost daily Feel off balance No Concerns: Teeth/Dentures No Concerns: Sexual function No Troubled by feelings None of the above Frequency: Eating healthy diet Nearly every day ADLs requiring help Grocery shopping; Cooking; Housework; Bathing; Grooming; Handling finances; Taking medications; Driving; Using the telephone Safety precautions in home/vehicle Yes Smoke, vape, chews tobacco No Difficulty hearing Yes (Is supposed to wear hearing aids, but pt doesn't want too) Difficulty seeing No Current Providers Specialists: I have reviewed specialist-related care of the patient in the medical record. Current care team: Patient Care Team: Jacquelin Spaulding MD as PCP - General (Family Medicine) [facility] - Podiatry, unable to recall Provider name. [facility] - Ophthal[facility] - Audiology/Hearing Aids. Medical/Family history review Reviewed and updated problem list, medical/surgical/family/social history, medications, and allergies. Opioid use review Opioid Medications (last 90 days) No data to display Anxiety/Depression screening Recommendation: no further intervention at this time Cognitive screening Cognitive screening reviewed and Recommended referral for further evaluation (score 0-2). Pt got a 0/5. Functional Observation Was the patient's Timed Up & Go test unsteady or >= 12 seconds? No Advance Care Planning Surrogate decision maker and/or advance care plan documented Physical Exam Constitutional: Appearance: Normal appearance. Cardiovascular: Pulses: Normal pulses. Heart sounds: Normal heart sounds. No murmur heard. No gallop. Pulmonary: Effort: Pulmonary effort is normal. No respiratory distress. Breath sounds: Normal breath sounds. No wheezing, rhonchi or rales. Musculoskeletal: General: No swelling. Comments: B/L lower legs varicose veins noted Neurological: Mental Status: He is alert. Mental status is at baseline. Psychiatric: Mood and Affect: Mood normal. Measurements BP 120/68 (BP Site: Left Arm, BP Position: Sitting, BP Cuff Size: Regular Adult) Pulse 84 Resp 18 Ht 161.3 cm (5' 3.5) Wt 76.1 kg (167 lb 12.3 oz) BMI 29.25 kg/m Vision Screening: Follows with optometry/ophthalmology Assessment/Plan Medicare annual wellness visit, subsequent (Z00.00) - Counseled on healthy diet and regular exercise - Fall avoidance information provided - Personalized prevention plan provided - Counseled patient on alcohol intake and associated health risks 2. Mild dementia without behavioral disturbance, psychotic disturbance, mood disturbance, or anxiety, unspecified dementia type (HCC) - ICD9: 294.10, ICD10: F03.A0 - Overall stable, some decline noted by daughter. - Continue current medication regimen. 3. Vitamin B12 deficiency - ICD9: 266.2, ICD10: E53.8 - Continue current medication regimen. 4. Regular alcohol consumption - ICD9: V69.8, ICD10: Z78.9 - Continue decreasing amount 5. Encounter for immunization - ICD9: V03.89, ICD10: Z23 - INFLUENZA VACCINE, PRSV FREE, AGE 65+ YR, HIGH DOSE, TRIVALENT (FLUZONE HIGH-DOSE) - [employer] COVID-19 VACCINE AGE 12+ YR (COMIRNATY) - Receive in office today Follow up in 6 months. I agree with the Chief Complaint, ROS, and Past Histories independently gathered by the clinical residential support specialist and the remaining scribed note accurately describes my personal service to the patient. Medical Decision Making: Problems: Moderate: 2+ stable chronic illnesses Risk: Moderate: Drug management Medical Decision Making Level: 4 - Moderate Jacquelin Spaulding MD The documentation for this note was completed by Flower Narvaez MA acting as scribe for Jacquelin Spaulding MD. May 08, 2024 2:19 PM. Flower Narvaez MA documented in this encounter [facility] 05-08-2024 Note HNO ID: [id number] Author: JACQUELIN SPAULDING MD Service: ? Author Type: Physician Type: Progress Notes Filed: 06/01/2024 14:45 Note Text: Melvin Riddle is a 83 year old male here for a Medicare wellness visit. Pt here today with daughterSalina. GI/Uro - Denies any stomach, bowel or urinary issues. Gets up a couple times per night to urinate. Cardio - Denies any chest pain, sob or dizziness. Diet/Exercise - Admits to watching diet some not completely, but daughter does try to watch diet. Has to eat gluten free. Exercises by walking the dog daily almost a mile. Did have to put one dog down. Daughter has an nicole to track him. On average he walks for 53 minutes. Memory - Pt states that memory is okay. Daughter states that it's on par for what's going on and but going a gradual decline. Overall his mood and demeanor are fine, doesn't get agitated. Does forget to tell her at times when he's taking the dog for a walk, but the dog is chipped. Takes Namenda 5 mg 1 tab po bid and B12 1,000 mg once daily. See Health Risk Assessment below on pt needs at home. Alcohol - Trying to work on cutting back. Down to 6 alcoholic beverages per day. Was being seen by [facility] for a toe issue per daughter. Had ingrown toenail that has been taken care of and legs were looked at during visit. HM - Agreeable to Flu and Covid vaccine. Discussed with pt about Shingles/RSV vaccine checking with insurance. Medicare Health Risk Assessment General Health Very good Exercise: Minutes/Day 60 min Exercise: Days/Week 7 days Alcohol: Daily Use 4 or more times a week Alcohol: Drinks/Day 5 or 6 Alcohol: 6 or more drinks Daily or almost daily Feel off balance No Concerns: Teeth/Dentures No Concerns: Sexual function No Troubled by feelings None of the above Frequency: Eating healthy diet Nearly every day ADLs requiring help Grocery shopping; Cooking; Housework; Bathing; Grooming; Handling finances; Taking medications; Driving; Using the telephone Safety precautions in home/vehicle Yes Smoke, vape, chews tobacco No Difficulty hearing Yes (Is supposed to wear hearing aids, but pt doesn't want too) Difficulty seeing No Current Providers Specialists: I have reviewed specialist-related care of the patient in the medical record. Current care team: Patient Care Team: Jacquelin Spaulding MD as PCP - General (Family Medicine) [facility] - Podiatry, unable to recall Provider name. [facility] - [facility] - Audiology/Hearing Aids. Medical/Family history review Reviewed and updated problem list, medical/surgical/family/social history, medications, and allergies. Opioid use review Opioid Medications (last 90 days) No data to display Anxiety/Depression screening Recommendation: no further intervention at this time Cognitive screening Cognitive screening reviewed and Recommended referral for further evaluation (score 0-2). Pt got a 0/5. Functional Observation Was the patient's Timed Up AND Go test unsteady or >= 12 seconds? No Advance Care Planning Surrogate decision maker and/or advance care plan documented Physical Exam Constitutional: Appearance: Normal appearance. Cardiovascular: Pulses: Normal pulses. Heart sounds: Normal heart sounds. No murmur heard. No gallop. Pulmonary: Effort: Pulmonary effort is normal. No respiratory distress. Breath sounds: Normal breath sounds. No wheezing, rhonchi or rales. Musculoskeletal: General: No swelling. Comments: B/L lower legs varicose veins noted Neurological: Mental Status: He is alert. Mental status is at baseline. Psychiatric: Mood and Affect: Mood normal. Measurements BP 120/68 (BP Site: Left Arm, BP Position: Sitting, BP Cuff Size: Regular Adult) Pulse 84 Resp 18 Ht 161.3 cm (5' 3.5) Wt 76.1 kg (167 lb 12.3 oz) BMI 29.25 kg/m? Vision Screening: Follows with optometry/ophthalmology Assessment/Plan Medicare annual wellness visit, subsequent (Z00.00) - Counseled on healthy diet and regular exercise - Fall avoidance information provided - Personalized prevention plan provided - Counseled patient on alcohol intake and associated health risks 2. Mild dementia without behavioral disturbance, psychotic disturbance, mood disturbance, or anxiety, unspecified dementia type (HCC) - ICD9: 294.10, ICD10: F03.A0 - Overall stable, some decline noted by daughter. - Continue current medication regimen. 3. Vitamin B12 deficiency - ICD9: 266.2, ICD10: E53.8 - Continue current medication regimen. 4. Regular alcohol consumption - ICD9: V69.8, ICD10: Z78.9 - Higher than recommended use, without signs of dependence or abuse - Continue decreasing amount - Monitor at next visit 5. Encounter for immunization - ICD9: V03.89, ICD10: Z23 - INFLUENZA VACCINE, PRSV FREE, AGE 65+ YR, HIGH DOSE, TRIVALENT (FLUZONE HIGH-DOSE) - [employer] COVID-19 VACCINE AGE 12+ YR (COMIRNATY (more content not included)... [facility] 02-03-2024 History of Presen t illness Narrative Chief Complaint Patient presents with: Hospital Follow Up HPI Melvin Riddle is a 83 year old male who presents here today for an ED follow up. Pt was seen at [facility] ED on 01/28/24 due to a fall. Pt presented to EC on 01/28/24 with family who found pt on the floor in the bathroom. Stated the fall occurred over night. Unsure of the mechanism of the fall. Did tell the Provider that pt had a few beers the prior evening. Due to the pt's age, alcohol ingestion Provider felt it warranted a CT of the head; CT was normal in ER. Pt here today with his daughter, Salina for an ED f/u. Pt here to just follow up. Denies any falls since his the ED. Believe he got tripped up on a towel rack in the bathroom, which has now been removed. At this time pt is doing fairly well. Has some lingering pain but improved since the fall. Rated pain in his back and left hip a 10 when in the ED. Today pain a 3-4/10 but intermittent. Is still able to get around and walk the dogs. Has not really taken anything other than Tylenol periodically. Still slightly tender to touch on his left lower back and hip area. Does have skin tear on left upper arm that daughter has been caring for from fall. Has been using Coconut oil, feels the area is healing up nicely. [facility] ED: HPI - Fall History of Present Illness Chief Complaint: Fall HISTORY OF PRESENT ILLNESS: 83-year-old male presents with fall. Patient cannot endorse the symptoms on the fall. He lives with his daughter. Daughter states she heard him fall walker room he was conscious on his left side. She thinks he tripped over the threshold to be in his room in the hallway. Patient is typically alert and oriented to person and place but not initially to time. He is at his baseline mental status today per his daughter. He denies any headache, fever, chills MDM Narrative: Patient was initially hemodynamically stable, afebrile and nontoxic-appearing. Primary secondary trauma surveys concerning for intracranial, cervical spine, lumbar, left arm and left hip abnormality, anemia. Per patient's Patient's mental status at baseline. He had no lateralizing neurologic findingson initial exam. I considered the following differential diagnosis: Fracture dislocation or bony traumatic abnormality to the head, cervical spine, lumbar spine, left hip or left upper arm. I obtained imaging studies to further clarify if there are any traumatic injuries Initially treated the patient with 500 cc bolus for gentle rehydration. Also obtain labs given patient's unclear mechanism and poor baseline mental status to rule out etiology such as anemia, electrolyte disturbances, dehydration, ACS, arrhythmia. ALL IMAGES (IF OBTAINED) HAVE BEEN PERSONALLY REVIEWED AND INTERPRETED BY MYSELF. EKG with normal sinus rhythm (no arrhythmia), left ax deviation, normal intervals, no STEMI, similar to prior EKG from April 2023 CBC with no leukocytosis, no anemia, thrombo-cytopenia High-sensitivity troponin is negative, no evidence of myocardial ischemia I have personally reviewed the patient's chest x-ray. Chest x-ray is unremarkable for pulmonary edema, pneumothorax, pneumonia or focal cardiopulmonary abnormality. X-ray of the left hip and humerus were read reviewed myself shows no evidence ofobvious bony abnormality CT scan of the head, cervical spine lumbar spine are negative for acute traumatic injury Tertiary trauma exam without new injury. Patient is at his baseline mental status. He is appropriate discharge home with Tylenol ibuprofen instructions, fall risk precautions and fall prevention home instructions. Strict return precautions were discussed The patient and/or family, caregivers express understanding. The patient and/orfamily, caregivers agrees with the plan. Shared decision making: I will have a discussion with the patient and or visitors regarding risk/benefits of further testing or admission. They will be made aware of of the risk/benefits inherent in this decision they will be given the opportunity to voice understanding. Total critical care time today provided was at least 0 minutes. This excludes separately billable procedures. Critical care time (if documented) is secondary to the patient having high probability of clinically significant/life threatening deterioration in the patient's condition which required my urgent intervention. Impression: 1. Fall 2. Left arm contusion 3. Lower back contusion Past medical history, appointments, medications, allergies reviewed. Previous Medical History No past medical history on file. Previous Surgical History PAST SURGICAL HISTORY 02/22/2018: COLONOSCOPY; N/A Comment: Dr. Kaye, [facility] 02/22/2018: EGD; N/A Comment: Dr. Kaye at [facility] 02/2018: HERNIA REPAIR HX; N/A Comment: hernia surgery by Dr. Kaye 01/2023: PAST SURGICAL HISTORY OF Comment: Hx of b/l cataract surgery No date: SKIN LESION; Left Comment: Left pinna, removed. Family History FAMILY HISTORY Problem Relation Age of Onset other (myocardial infarction) Mother 44 COPD Father other (pneumonia) Father 80 Patient Allergies ALLERGIES No Known Allergies Current Medications Current Outpatient Medications on File Prior to Visit Medication Sig memantine (NAMENDA) 5 mg tablet Take 1 tablet by mouth two times a day. cyanocobalamin (VITAMIN B-12) 1,000 mcg tab Take 1 tablet by mouth two times a day. No current facility-administered medications on file prior to visit. Social History Social History Tobacco Use Smoking status: Former Packs/day: 0.75 Years: 25.00 Additional pack years: 0.00 Total pack years: 18.75 Types: Cigarettes Smokeless tobacco: Former Types: Snuff Tobacco comments: quit 30 years ago Vaping Use Vaping Use: Never used Substance Use Topics Alcohol use: Yes Drug use: Never EXAM: BP 118/78 (BP Site: Right Arm, BP Position: Sitting, BP Cuff Size: Regular Adult) Pulse 76 Resp 18 Wt 75.1 kg (165 lb 9.1 oz) BMI 28.42 kg/m General Appearance: Well appearing, alert, in no acute distress, well-hydrated, well nourished.. Skin: skin tear left upper arm, healing; abrasions on shins. Back: bruising left lower flank area Lungs: Lungs clear to auscultation. No wheezing, rhonchi, rales.. Heart: RRR without murmur, gallop, or rubs. No ectopy. Health Maintenance List Spirometry Never done Shingrix Vaccine(1 of 2) Never done RSV Vaccine(1 - 1-dose 60+ series) Never done Advance Directive Discussion Never done Covid-19 Vaccine( season) due on 09/01/2023 Influenza Vaccine(1) due on 02/27/2024 Diabetes Screening due on 11/04/2026 DTaP,Tdap,Td Vaccine(2 - Td or Tdap) due on 09/09/2031 Pneumococcal Vaccine: 65+ Completed Data reviewed [facility] records scanned into pt's chart. ASSESSMENT/PLAN: 1. Fall, sequela - ICD9: 909.4, E929.3, ICD10: W19.XXXS (primary diagnosis) Continue symptomatic care and wound care for skin tear 2. Mild dementia without behavioral disturbance, psychotic disturbance, mood disturbance, or anxiety, unspecified dementia type (HCC) - ICD9: 294.10, ICD10: F03.A0 Follow up prn Medical Decision Making: Problems: Low: Acute, uncomplicated illness or injury Risk: Low: Low risk from testing/treatment Medical Decision Making Level: 3 - Low Jacquelin Spaulding MD documented in this encounter [facility] 02-03-2024 Note HNO ID: [id number] Author: JACQUELIN SPAULDING MD Service: ? Author Type: Physician Type: Progress Notes Filed: 02/03/2024 10:44 Note Text: Chief Complaint Patient presents with: Hospital Follow Up HPI Melvin Riddle is a 83 year old male who presents here today for an ED follow up. Pt was seen at [facility] ED on 01/28/24 due to a fall. Pt presented to on 01/28/24 with family who found pt on the floor in the bathroom. Stated the fall occurred over night. Unsure of the mechanism of the fall. Did tell the Provider that pt had a few beers the prior evening. Due to the pt's age, alcohol ingestion Provider felt it warranted a CT of the head; CT was normal in ER. Pt here today with his daughter, Salina for an ED f/u. Pt here to just follow up. Denies any falls since his the ED. Believe he got tripped up on a towel rack in the bathroom, which has now been removed. At this time pt is doing fairly well. Has some lingering pain but improved since the fall. Rated pain in his back and left hip a 10 when in the ED. Today pain a 3-4/10 but intermittent. Is still able to get around and walk the dogs. Has not really taken anything other than Tylenol periodically. Still slightly tender to touch on his left lower back and hip area. Does have skin tear on left upper arm that daughter has been caring for from fall. Has been using Coconut oil, feels the area is healing up nicely. [facility] ED: HPI - Fall History of Present Illness Chief Complaint: Fall HISTORY OF PRESENT ILLNESS: 83-year-old male presents with fall. Patient cannot endorse the symptoms on the fall. He lives with his daughter. Daughter states she heard him fall walker room he was conscious on his left side. She thinks he tripped over the threshold to be in his room in the hallway. Patient is typically alert and oriented to person and place but not initially to time. He is at his baseline mental status today per his daughter. He denies any headache, fever, chills MDM Narrative: Patient was initially hemodynamically stable, afebrile and nontoxic-appearing. Primary secondary trauma surveys concerning for intracranial, cervical spine, lumbar, left arm and left hip abnormality, anemia. Per patient's Patient's mental status at baseline. He had no lateralizing neurologic findingson initial exam. I considered the following differential diagnosis: Fracture dislocation or bony traumatic abnormality to the head, cervical spine, lumbar spine, left hip or left upper arm. I obtained imaging studies to further clarify if there are any traumatic injuries Initially treated the patient with 500 cc bolus for gentle rehydration. Also obtain labs given patient's unclear mechanism and poor baseline mental status to rule out etiology such as anemia, electrolyte disturbances, dehydration, ACS, arrhythmia. ALL IMAGES (IF OBTAINED) HAVE BEEN PERSONALLY REVIEWED AND INTERPRETED BY MYSELF. EKG with normal sinus rhythm (no arrhythmia), left ax deviation, normal intervals, no STEMI, similar to prior EKG from April 2023 CBC with no leukocytosis, no anemia, thrombo-cytopenia High-sensitivity troponin is negative, no evidence of myocardial ischemia I have personally reviewed the patient's chest x-ray. Chest x-ray is unremarkable for pulmonary edema, pneumothorax, pneumonia or focal cardiopulmonary abnormality. X-ray of the left hip and humerus were read reviewed myself shows no evidence ofobvious bony abnormality CT scan of the head, cervical spine lumbar spine are negative for acute traumatic injury Tertiary trauma exam without new injury. Patient is at his baseline mental status. He is appropriate discharge home with Tylenol ibuprofen instructions, fall risk precautions and fall prevention home instructions. Strict return precautions were discussed The patient and/or family, caregivers express understanding. The patient and/orfamily, caregivers agrees with the plan. Shared decision making: I will have a discussion with the patient and or visitors regarding risk/benefits of further testing or admission. They will be made aware of of the risk/benefits inherent in this decision they will be given the opportunity to voice understanding. Total critical care time today provided was at least 0 minutes. This excludes separately billable procedures. Critical care time (if documented) is secondary to the patient having high probability of clinically significant/life threatening deterioration in the patient's condition which required my urgent intervention. Impression: 1. Fall 2. Left arm contusion 3. Lower back contusion Past medical history, appointments, medications, allergies reviewed. Previous Medical History No past medical history on file. Previous Surgical History PAST SURGICAL HISTORY 02/22/2018: COLONOSCOPY; N/A Comment: Dr. Kaye, [facility] 02/22/2018: EGD; N/A Comment: Dr. Kaye at [facility] 02/2018: HERNIA REPAIR HX; N/A Commen (more content not included)... [facility] 01-31-2024 Note HNO ID: [id number] Author: SP HALEY MA Service: ? Author Type: Publishing Systems Analyst Type: Progress Notes Filed: 01/31/2024 15:24 Note Text: POPULATION HEALTH NAVIGATION OUTREACH Action/FYI January 31, 2024 Spoke with pt's daughter, Salina. Pt scheduled for ED follow up appt with PCP on 02/03/24. ACM Trang Please call daughter Salina to schedule ed f/u appt Patient was seen in the Emergency Department (ED) Location: [place] - Date: 01/28/24 Reason for ED Visit: Fall @ home TCM eligible through 02/11/24 Reason for Outreach Community Monitoring/Network Navigator Pools AND Phone Line: ACM Patient Contacted: Spoke to patient/parent/or legal guardian Patient identified by name and : Yes Community Monitoring/Network Navigator Pools AND Phone Line actions taken: Patient scheduled: ER Follow-up 02/03/2024 in [facility] with JACQUELIN SPAULDING - Patient was seen in the Emergency Department (ED), Location: - Date: 01/28/24 , Reason for ED Visit: Fall @ home, TCM eligible through 02/11/24 05/08/2024 in [facility] with JACQUELIN SPAULDING - 6 month follow up memory, B12, 2023 AWV due. Please address due care gaps and HCC gap closure Navigation Signature: Sp Haley MA January 31, 2024 2:46 PM [facility] 01-31-2024 History of Presen t illness Narrative POPULATION HEALTH NAVIGATION OUTREACH Action/I January 31, 2024 Spoke with pt's daughter, Salina. Pt scheduled for ED follow up appt with PCP on 02/03/24. ACM Trang Please call daughter Salina to schedule ed f/u appt Patient was seen in the Emergency Department (ED) Location: - Date: 01/28/24 Reason for ED Visit: Fall @ home TCM eligible through 02/11/24 Reason for Outreach Community Monitoring/Network Navigator Pools & Phone Line: ACM Patient Contacted: Spoke to patient/parent/or legal guardian Patient identified by name and : Yes Community Monitoring/Network Navigator Pools & Phone Line actions taken: Patient scheduled: ER Follow-up 02/03/2024 in [facility] with JACQUELIN SPAULDING - Patient was seen in the Emergency Department (ED), Location: - Date: 01/28/24 , Reason for ED Visit: Fall @ home, TCM eligible through 02/11/24 05/08/2024 in [facility] with JACQUELIN SPAULDING - 6 month follow up memory, B12, 2023 AWV due. Please address due care gaps and HCC gap closure Navigation Signature: Sp Haley MA January 31, 2024 2:46 PM ED Follow-Up Note PSS Per review of ED Utilization at request of Payer Melvin bravo 38 needs to have an appointment scheduled with @PCP@ for follow up of Emergency Department Utilization. Please schedule an appointment with PCP for review of these conditions as well as any other open care gaps. Please call daughter Salina to schedule ed f/u appt Provider Action / FYI: Called and spoke with daughter Salina who lives with pt.She reports he tripped in the house.No loc.Still generally sore and occas takes tylenol for the pain Was up and about today walking the dog and did well Salina would like a pcp f/u Outreach was completed via telephone regarding the patient s recent [facility] ED visit. Member denies any concerning symptoms or current medical or social needs. The patient was encouraged to contact their primary care provider (PCP) to schedule a follow up appointment and ask any questions related to their ongoing care within 7 days of the ED visit. Patient stated understanding. Call completed by: RN Patient seen in ED: Out of Network ED Contact made with Patient: Yes The patient was identified by Name and Date of . Discussed Care with: daughter Patient was seen in the Emergency Department (ED) Location: [place] Date: 01/28/24 Reason for ED Visit: Fall @ home ED Intervention: CT of head,CT of spine,Hip xray and chest x-ray were all negative New Medications: none Medication Changes: none Does patient understand medication changes: N/A Can patient afford medication changes: N/A Patient educated on worsening symptoms and when and where to seek additional care: Yes Patient Education Provided including treatment plan and new orders. Patient provided with appropriate counseling: Yes Based on traffic court referee, the following disposition is advised: No symptoms or symptoms present, not severe. Routed to: Navigation Team: PCP visit within 7 days YULISA Education Provided this Outreach: No Rasta Antonio RN January 31, 2024 2:30 PM documented in this encounter [facility] 01-31-2024 Note HNO ID: [id number] Author: RASTA ANTONIO RN Service: ? Author Type: Registered Nurse Type: Progress Notes Filed: 01/31/2024 15:24 Note Text: ED Follow-Up Note PSS Per review of ED Utilization at request of Payer Melvin bravo 38 needs to have an appointment scheduled with @PCP@ for follow up of Emergency Department Utilization. Please schedule an appointment with PCP for review of these conditions as well as any other open care gaps. Please call daughter Salina to schedule ed f/u appt Provider Action / FYI: Called and spoke with daughter Salina who lives with pt.She reports he tripped in the house.No loc.Still generally sore and occas takes tylenol for the pain Was up and about today walking the dog and did well Salina would like a pcp f/u Outreach was completed via telephone regarding the patient?s recent [facility] ED visit. Member denies any concerning symptoms or current medical or social needs. The patient was encouraged to contact their primary care provider (PCP) to schedule a follow up appointment and ask any questions related to their ongoing care within 7 days of the ED visit. Patient stated understanding. Call completed by: RN Patient seen in ED: Out of Network ED Contact made with Patient: Yes The patient was identified by Name and Date of . Discussed Care with: daughter Patient was seen in the Emergency Department (ED) Location: [place] Date: 01/28/24 Reason for ED Visit: Fall @ home ED Intervention: CT of head,CT of spine,Hip xray and chest x-ray were all negative New Medications: none Medication Changes: none Does patient understand medication changes: N/A Can patient afford medication changes: N/A Patient educated on worsening symptoms and when and where to seek additional care: Yes Patient Education Provided including treatment plan and new orders. Patient provided with appropriate counseling: Yes Based on traffic court referee, the following disposition is advised: No symptoms or symptoms present, not severe. Routed to: Navigation Team: PCP visit within 7 days YULISA Education Provided this Outreach: No Rasta Antonio RN January 31, 2024 2:30 PM [facility] 01-31-2024 Note Patient Outreach ([facility]) MELVIN RIDDLE ([id number]) 1940 M Date Time Provider Department 01/31/24 RASTA ANTONIO During your visit today, we recorded the following information about you: Rasta Antonio RN 01/31/2024 3:24 PM Signed ED Follow-Up Note PSS Per review of ED Utilization at request of Payer Melvin Riddle 38 needs to have an appointment scheduled with @PCP@ for follow up of Emergency Department Utilization. Please schedule an appointment with PCP for review of these conditions as well as any other open care gaps. Please call daughter Salina to schedule ed f/u appt Provider Action / FYI: Called and spoke with daughter Salina who lives with pt.She reports he tripped in the house.No loc.Still generally sore and occas takes tylenol for the pain Was up and about today walking the dog and did well Salina would like a pcp f/u Outreach was completed via telephone regarding the patient?s recent [facility] ED visit. Member denies any concerning symptoms or current medical or social needs. The patient was encouraged to contact their primary care provider (PCP) to schedule a follow up appointment and ask any questions related to their ongoing care within 7 days of the ED visit. Patient stated understanding. Call completed by: RN Patient seen in ED: Out of Network ED Contact made with Patient: Yes The patient was identified by Name and Date of . Discussed Care with: daughter Patient was seen in the Emergency Department (ED) Location: [place] Date: 01/28/24 Reason for ED Visit: Fall @ home ED Intervention: CT of head,CT of spine,Hip xray and chest x-ray were all negative New Medications: none Medication Changes: none Does patient understand medication changes: N/A Can patient afford medication changes: N/A Patient educated on worsening symptoms and when and where to seek additional care: Yes Patient Education Provided including treatment plan and new orders. Patient provided with appropriate counseling: Yes Based on traffic court referee, the following disposition is advised: No symptoms or symptoms present, not severe. Routed to: Navigation Team: PCP visit within 7 days YULISA Education Provided this Outreach: Alessandra Antonio RN January 31, 2024 2:30 PM Sp Haley MA 01/31/2024 3:24 PM Signed POPULATION HEALTH NAVIGATION OUTREACH Action/FYI January 31, 2024 Spoke with pt's daughter, Salina. Pt scheduled for ED follow up appt with PCP on 02/03/24. ACM Trang Please call daughter Salina to schedule ed f/u appt Patient was seen in the Emergency Department (ED) Location: - Date: 01/28/24 Reason for ED Visit: Fall @ home TCM eligible through 02/11/24 Reason for Outreach Community Monitoring/Network Navigator Pools AND Phone Line: ACM Patient Contacted: Spoke to patient/parent/or legal guardian Patient identified by name and : Yes Community Monitoring/Network Navigator Pools AND Phone Line actions taken: Patient scheduled: ER Follow-up 02/03/2024 in [facility] with JACQUELIN SPAULDING - Patient was seen in the Emergency Department (ED), Location: - Date: 01/28/24 , Reason for ED Visit: Fall @ home, TCM eligible through 02/11/24 05/08/2024 in [facility] with JACQUELIN SPAULDING - 6 month follow up memory, B12, 2023 AWV due. Please address due care gaps and HCC gap closure Navigation Signature: Sp Haley MA January 31, 2024 2:46 PM Allergies As of Date: 01/31/2024 (No Known Allergies) Date Reviewed: 01/28/2024 Reviewed by: Sierra Zeng MA - Fully Assessed Reason for Visit: ACM TRANG RN [[id number]] Cmt: ER outreach follow up Prescriptions as of 03/03/2024 - memantine (NAMENDA) 5 mg tablet Take 1 tablet by mouth two times a day. - cyanocobalamin (VITAMIN B-12) 1,000 mcg tab Take 1 tablet by mouth two times a day. Meds Comments as of 04/15/2023: Dynamic brain health supplement Oregamax immunity support supplement B12 1,000 mcg 1 pill BID. 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 Author Type: Nurse Practitioner Type: Progress Notes Filed: 01/28/2024 10:07 Note Text: 83 year old female presents for fall and injuries. Occurred over night. Family at bedside and endorses that she found him on floor in bathroom. He did have a few beers yesterday evening. Unsure of exact mechanism of fall. Given age, and alcohol ingestion patient warrants a CT head Have referred to ED No charge [facility] 01-28-2024 History of Presen t illness Narrative 83 year old female presents for fall and injuries. Occurred over night. Family at bedside and endorses that she found him on floor in bathroom. He did have a few beers yesterday evening. Unsure of exact mechanism of fall. Given age, and alcohol ingestion patient warrants a CT head Have referred to ED No charge documented in this encounter [facility] 01-21-2024 Telephone encounter Note The following approved medication requests have been transmitted electronically. Requested Prescriptions Pending Prescriptions Disp Refills memantine (NAMENDA) 5 mg tablet 180 tablet 3 Sig: Take 1 tablet by mouth two times a day. Refused Prescriptions Disp Refills cyanocobalamin (VITAMIN B-12) 1,000 mcg tab 180 tablet 3 Sig: Take 1 tablet by mouth two times a day. Refused By: GÉNESIS CABEZAS Reason for Refusal: Records indicate that there is a valid prescription at the pharmacy Pedro [facility]oz APRN.SAVAGE [facility] 01-21-2024 Miscellaneous Notes The following approved medication requests have been transmitted electronically. Requested Prescriptions Pending Prescriptions Disp Refills memantine (NAMENDA) 5 mg tablet 180 tablet 3 Sig: Take 1 tablet by mouth two times a day. Refused Prescriptions Disp Refills cyanocobalamin (VITAMIN B-12) 1,000 mcg tab 180 tablet 3 Sig: Take 1 tablet by mouth two times a day. Refused By: GÉNESIS CABEZAS Reason for Refusal: Records indicate that there is a valid prescription at the pharmacy Pedro [facility]oz APRN.INSTALLATION SUPERINTENDENT Prescription Refill Information The patient has been identified by name and date of : Yes Caregiver verified no other encounters exist for this prescription request: Yes Caregiver confirmed with patient/requestor that no other refills are due, in the near future, with this provider at this time: Yes The last office visit in the department: 11/05/2023 Does the patient have a future office visit with this provider/department: Yes Requested Prescriptions Pending Prescriptions Disp Refills memantine (NAMENDA) 5 mg tablet 180 tablet 3 Sig: Take 1 tablet by mouth two times a day. Refused Prescriptions Disp Refills cyanocobalamin (VITAMIN B-12) 1,000 mcg tab 180 tablet 3 Sig: Take 1 tablet by mouth two times a day. Génesis Cabezas LPN January 21, 2024 2:00 PM documented in this encounter [facility] 01-21-2024 Telephone encounter Note Prescription Refill Information The patient has been identified by name and date of : Yes Caregiver verified no other encounters exist for this prescription request: Yes Caregiver confirmed with patient/requestor that no other refills are due, in the near future, with this provider at this time: Yes The last office visit in the department: 11/05/2023 Does the patient have a future office visit with this provider/department: Yes Requested Prescriptions Pending Prescriptions Disp Refills memantine (NAMENDA) 5 mg tablet 180 tablet 3 Sig: Take 1 tablet by mouth two times a day. Refused Prescriptions Disp Refills cyanocobalamin (VITAMIN B-12) 1,000 mcg tab 180 tablet 3 Sig: Take 1 tablet by mouth two times a day. Génesis Cabezas LPN January 21, 2024 2:00 PM [facility] 01-17-2024 Note HNO ID: [id number] Author: ERNESTO FENG MA Service: ? Author Type: Publishing Systems Analyst Type: Progress Notes Filed: 01/17/2024 12:16 Note Text: POPULATION HEALTH NAVIGATION OUTREACH Action/FYI Patient is on [facility] CURRENT ROSTER Workbench list for below and needs appointment to address: Spirometry Shingrix Vaccine(1 of 2) RSV Vaccine(1 - 1-dose 60+ series) Advance Directive Discussion Covid-19 Vaccine( season) No results found for: HBA1C Patient due for: Medicare Annual Wellness Visit Advance Directives Attempted to reach patient, voicemail not set up yet, unable to leave message. Sent mychart message. No HCC Unable to convert upcoming OV to AWV due to provider scheduled conflict. Updated upcoming OV notes Please address due care gaps and HCC gap closure Reason for Outreach Care Gap/HCC or Scheduling Wellness Visits Care Gaps due: Medicare Annual Wellness Visit Advance Directives Patient Contacted: Unable or unnecessary to reach patient: Unable to leave message MyChart message sent Updated appointment notes Navigation Signature: Ernesto Feng MA January 17, 2024 8:29 AM [facility] 01-17-2024 History of Presen t illness Narrative POPULATION HEALTH NAVIGATION OUTREACH Action/FYI Patient is [facility] for below and needs appointment to address: Spirometry Shingrix Vaccine(1 of 2) RSV Vaccine(1 - 1-dose 60+ series) Advance Directive Discussion Covid-19 Vaccine( season) No results found for: HBA1C Patient due for: Medicare Annual Wellness Visit Advance Directives Attempted to reach patient, voicemail not set up yet, unable to leave message. Sent mychart message. No HCC Unable to convert upcoming OV to AWV due to provider scheduled conflict. Updated upcoming OV notes Please address due care gaps and HCC gap closure Reason for Outreach Care Gap/HCC or Scheduling Wellness Visits Care Gaps due: Medicare Annual Wellness Visit Advance Directives Patient Contacted: Unable or unnecessary to reach patient: Unable to leave message MyChart message sent Updated appointment notes Navigation Signature: Ernesto Feng MA January 17, 2024 8:29 AM documented in this encounter [facility] 01-17-2024 Note Patient Outreach (WILBER TNAV) MELVIN RIDDLE ([id number]) 1940 M Date Time Provider Department 01/17/24 ERNESTO FENG During your visit today, we recorded the following information about you: Ernesto Feng MA 01/17/2024 12:16 PM Signed POPULATION HEALTH NAVIGATION OUTREACH Action/FYI Patient is on [facility] CURRENT [employer] [employer] list for below and needs appointment to address: Spirometry Shingrix Vaccine(1 of 2) RSV Vaccine(1 - 1-dose 60+ series) Advance Directive Discussion Covid-19 Vaccine( season) No results found for: HBA1C Patient due for: Medicare Annual Wellness Visit Advance Directives Attempted to reach patient, voicemail not set up yet, unable to leave message. Sent [employer] message. No HCC Unable to convert upcoming OV to AWV due to provider scheduled conflict. Updated upcoming OV notes Please address due care gaps and HCC gap closure Reason for Outreach Care Gap/HCC or Scheduling Wellness Visits Care Gaps due: Medicare Annual Wellness Visit Advance Directives Patient Contacted: Unable or unnecessary to reach patient: Unable to leave message [employer] message sent Updated appointment notes Navigation Signature: Ernesto Feng MA January 17, 2024 8:29 AM Allergies As of Date: 01/17/2024 (No Known Allergies) Date Reviewed: 11/05/2023 Reviewed by: Chelo Graham MA - Fully Assessed Reason for Visit: Population Health Navigation Outreach [[id number]] Cmt: [facility] Prescriptions as of 01/17/2024 - cyanocobalamin (VITAMIN B-12) 1,000 mcg tab Take 1 tablet by mouth two times a day. - memantine (NAMENDA) 5 mg tablet Take 1 tablet by mouth twice daily. Meds Comments as of 04/15/2023: Dynamic brain health supplement Oregamax immunity support supplement B12 1,000 mcg 1 pill BID. 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 Notified her of results below from Provider, verbalized understanding. Flower Narvaez MA [facility] 11-09-2023 Miscellaneous Notes Call to pt's daughter, Salina. Notified her of results below from Provider, verbalized understanding. Flower Narvaez MA Please notify patient's daughter that his labs all look fine. Jacquelin Spaulding MD documented in this encounter [facility] 11-08-2023 Telephone encounter Note Please notify patient's daughter that his labs all look fine. Jacquelin Spaulding MD [facility] 11-05-2023 History of Presen t illness Narrative Chief Complaint Patient presents with: 6 Month Exam HPI Melvin Riddle is a 83 year old male who presents here today for 6 month follow up. Here with daughter, Salina. Hard of hearing, worse when there is back ground noise. No bowel, Gi, or urinary issues. Has not had any further issues with choking that he had while in [place]. Daughter has noticed that he actually is less phlegmy since the chocking incident. No chest pains, dizziness, or SOB. Memory: Taking Namenda 5 mg 1 pill BID. Has not noticed any side effects or problems with the Namenda. Daughter makes sure shower water is not too cold or too hot, reminds him to put soap on the wash cloth and that the shampoo goes on his head and not his body. Daughter doesn't feel like his memory is any worse than 6 months ago. Still takes the dogs out for walks but he only goes about 30 min to 1 hour. One of the dogs he takes knows the loop and pretty much walks patient, will get him home. He knows directions but at times needs talked through the process of what he is doing or needs to do. Past medical history, appointments, medications, allergies reviewed. Previous Medical History No past medical history on file. Previous Surgical History PAST SURGICAL HISTORY Procedure Laterality Date COLONOSCOPY N/A 02/22/2018 Dr. Kaye, [facility] EGD N/A 02/22/2018 Dr. Kaye at [facility] HERNIA REPAIR HX N/A 02/[address] Kyae PAST SURGICAL HISTORY OF 01/2023 Hx of b/l cataract surgery SKIN LESION Left Left pinna, removed. Family History FAMILY HISTORY Problem Relation Age of Onset other (myocardial infarction) Mother 44 COPD Father other (pneumonia) Father 80 Patient Allergies ALLERGIES No Known Allergies Current Medications Current Outpatient Medications on File Prior to Visit Medication Sig memantine (NAMENDA) 5 mg tablet Take 1 tablet by mouth twice daily. cyanocobalamin (VITAMIN B-12) 1,000 mcg tab Take 1 tablet by mouth twice daily. No current facility-administered medications on file prior to visit. Social History Social History Tobacco Use Smoking status: Former Packs/day: 0.75 Years: 25.00 Additional pack years: 0.00 Total pack years: 18.75 Types: Cigarettes Smokeless tobacco: Former Types: Snuff Tobacco comments: quit 30 years ago Vaping Use Vaping Use: Never used Substance Use Topics Alcohol use: Yes Drug use: Never EXAM: BP 126/80 Pulse 68 Resp 16 Wt 75 kg (165 lb 4.8 oz) BMI 28.37 kg/m General Appearance: Well appearing, alert, in no acute distress, well-hydrated, well nourished.. Lungs: Lungs clear to auscultation. No wheezing, rhonchi, rales.. Heart: RRR without murmur, gallop, or rubs. No ectopy. Health Maintenance List Spirometry Never done Shingrix Vaccine(1 of 2) Never done RSV Vaccine(1 - 1-dose 60+ series) Never done Advance Directive Discussion Never done Covid-19 Vaccine( season) due on 09/01/2023 Diabetes Screening due on 03/20/2025 DTaP,Tdap,Td Vaccine(2 - Td or Tdap) due on 09/09/2031 Influenza Vaccine Completed Pneumococcal Vaccine: 65+ Completed Data reviewed None ASSESSMENT/PLAN: 1. Mild dementia (HCC) - ICD9: 294.20, ICD10: F03.A0 (primary diagnosis) Stable Continue Namenda Check labs - CYANOCOBALAMIN (VIT B-12) 1,000 MCG TABLET 2. Vitamin B12 deficiency - ICD9: 266.2, ICD10: E53.8 Continue with supplement Check B12 levels at the lab - CYANOCOBALAMIN (VIT B-12) 1,000 MCG TABLET Follow up in 6 months. Will notify of lab results . I agree with the Chief Complaint, ROS, and Past Histories independently gathered by the clinical residential support specialist and the remaining scribed note accurately describes my personal service to the patient. Medical Decision Making: Problems: Low: Stable chronic illness Risk: Moderate: Drug management Medical Decision Making Level: 3 - Low Jacquelin Spaulding MD The documentation for this note was completed by Chelo Graham MA acting as scribe for Jacquelin Spaulding MD. November 05, 2023 4:14 PM. Chelo Graham MA documented in this encounter [facility] 10-25-2023 History of Presen t illness Narrative POPULATION HEALTH NAVIGATION OUTREACH Action/FYI Patient is on [facility] CURRENT [employer] list for below and needs appointment to address: Spirometry Shingrix Vaccine(1 of 2) RSV Vaccine(1 - 1-dose 60+ series) Advance Directive Discussion Covid-19 Vaccine( season) No results found for: HBA1C Patient due for: Medicare Annual Wellness Visit Advance Directives Attempted to reach patient, voicemail not set up yet, unable to leave message. Sent [employer] message. Reason for Outreach Care Gap/HCC or Scheduling Wellness Visits Care Gaps due: Medicare Annual Wellness Visit Advance Directives Patient Contacted: Unable or unnecessary to reach patient: Unable to leave message MyChart message sent HCC related Navigation Signature: Ernesto Feng MA October 25, 2023 7:35 AM documented in this encounter [facility] 05-27-2023 Miscellaneous Notes Phoned daughter Salina and went over notes from Dr application systems engineer, Salina said she found the medication and did give his dose was only few hours late, he will be taking his last dose today. Daughter said father likes to hide things and had stashed the medication in the first aid kit. Noted, no need to restart medication since end of day 5 after diagnosis Jordy Ugalde DO Daughter called to let you know pt was to [facility] ER on Wednesday05-22-23 and dx with COVID. Pt was given the medication Paxlovid. Pt took 3 days and now family can not find the last 2 days. Pt has dementia. Daughter asking what they need to do if anything. Please advise daughter. PCP/team unavailable. Routing message to application systems engineer. Terri Alfaro LPN documented in this encounter [facility] 05-22-2023 Discharge summary Note Date/Time May 22, 2023 5:50pm [facility] Medical Records Department [address] [place] [address] Emergency Department Summary 05/22/23 MR#: [id number] Acct: [id number] Name: MELVIN RIDDLE Rep #:[id number] : 1940 82 From: Jonathan Bedoya DO PCP: Dr. Jacquelin Spaulding MD Status:RE G ER Location: ED HPI History of Present Illness Chief Complaint: General Illness Narrative Narrative: 82-year-old male presenting with generalized fatigue, weakness. Patient is a poor informant secondary to dementia. Family states that he has been unable to give any significant history. They note he is has a mild cough which is dry as well as sneezing more frequently. He is felt a little warm at home but they have not checked his temperature. Patient's family notes that one of their family numbers had croup recently and he was in contact with them. Patient has not had a known fever with a thermometer. He has been sleeping more today. He has decreased p.o. intake today. He states he is not nauseous or in pain other than a headache. Patient's family notes that they found him in the garage on . He had wandered out there and apparently fell. This was unwitnessed. Family believes he was unconscious because he was cold enough to have been out in the garage for a while. He states that his hands and his feet were cold. Hehas been acting normal at baseline since then however today has abrupt mental status change and a concern he has a bug. [facility] Medical History Abdominal pain COPD (chronic obstructive pulmonary disease) History of inguinal hernia Pulmonary fibrosis Right inguinal hernia Home Medications memantine 5 mg tablet 5 mg PO DAILY 05/22/23 [History Last Taken Unknown] nirmatrelvir 300 mg (150 mg x2)-ritonavir 100 mg tablet,dose pack (Paxlovid) SeeRx Instructions PO .COMPLEX #30 tabs 05/22/23 [Rx Last Taken Unknown] ondansetron 4 mg disintegrating tablet 4 mg PO Q8H PRN PRN Nausea #14 tabs 05/22/23 [Rx Last Taken Unknown] Allergy/AdvReac Type Severity Reaction Status Date / Time No Known Allergies Allergy Verified 05/22/23 17:27 Family History Mother Myocardial infarction Brother Myocardial infarction Father Emphysema of lung Surgical History History of right inguinal hernia repair (~03/24/18) History of tooth extraction Social History Smoking Status: Former smoker ROS ROS ED Review of Systems ROS Unobtainable: due to mental condition Constitutional Constitutional ED: Denies fever(s) Eyes Eyes: Denies change in vision or diplopia ENT ENT ED: Denies rhinorrhea Cardiovascular Cardiovascular: Denies chest pain or palpitations Respiratory/Chest Respiratory/Chest: Reports cough; Denies dyspnea Gastrointestinal Gastrointestinal: Reports other Details: Decreased p.o. intake ; Denies abdominal pain Genitourinary Genitourinary ED: Denies dysuria or hematuria Musculoskeletal Musculoskeletal: Denies arthralgias, back pain or myalgias Integumentary Denies abscess Neurologic Neurologic: Reports headache(s); Denies paresthesias or weakness Psychiatric Psychiatric: Denies anxiety or depression EXAM Physical Exam Const Vital Signs: 05/22/23 17:27 05/22/23 17:41 05/22/23 18:09 Temperature 99.9 F H 99.8 F H Temperature Source Temporal Oral Pulse Rate 95 Respiratory Rate 18 Respiratory Effort Normal Non-Labored Respiratory Pattern Normal Blood Pressure 165/82 H Blood Pressure Mean 109 Pulse Ox 94 Oxygen Delivery Method Room Air Oxygen Flow Rate (L/min) 05/22/23 18:53 05/22/23 18:53 Temperature Temperature Source Pulse Rate 96 Respiratory Rate 18 Respiratory Effort Respiratory Pattern Blood Pressure 142/73 H Blood Pressure Mean 96 Pulse Ox 89 94 Oxygen Delivery Method Room Air Nasal Cannula Oxygen Flow Rate (L/min) 2 Positive well nourished General Appearance ED: NAD; Negative for pallor HEENT Reports moist mucous membranes Eyes PERRL and EOMs intact bilaterally Resp normal respiratory effort Auscultation: Negative for rales, rhonchi or wheezes Cardio regular rate and regular rhythm GI normal to inspection, nondistended, normoactive bowel sounds Neuro CN's II-XII intact bilaterally and no sensory deficits noted Sensorium / Orientation: alert Motor Exam: strength 5/5 throughout Psych mental status grossly normal Skin no rashes or lesions noted and no wounds General Skin Exam: Negative for jaundice or pallor MDM MDM MDM Narrative Medical decision making narrative: Presenting with weakness and confusion. She also had a fall with head injury onThursday and suspected LOC. Differential includes intracranial hemorrhage, skull fracture, C-spine fracture, concussion, dehydration, electrolyte abnormalities, dysrhythmia, ACS, pneumonia, UTI, COVID, influenza. CBC will be obtained to assess white blood cell count, hemoglobin, platelets. CMP to assessliver function, renal function, electrolytes. Urinalysis to assess for UTI. EKG and high-sensitivity troponin to assess for ischemia/dysrhythmia chest x-rayto rule out pneumonia. COVID and influenza will be obtained to assess provided etiologies. Patient medicated with Tylenol and Zofran. He is given IV fluids. CT brain and CT cervical spine as the patient had an fall with head injury was unable to give a significant history to dementia. CBC shows normal white blood cell count of 8.1. Hemoglobin 14.2. Platelets normal 177. Renal function and electrolytes within normal limits. LFTs are normal. High-sensitivity troponin is 9. EKG on my interpretation shows a normal sinus rhythm with a ventricular 90 bpm without sign of ischemic change or ectopy. Chest x-ray my interpretationshows no acute process. Radiologist services and agrees. Patient feeling improved after Tylenol, Zofran, IV fluids. He gave a urine sample this appears to be negative as well. Rapid COVID came back positive. We will ambulate the patient with pulse ox as he is 93% sitting in the bed. Ambulated well maintaining sat 91%. No symptoms when he was ambulating. His gait was stable. He is a alert and awake. He states he feels much better. I wrote him prescription for Zofran and for Paxlovid at the request. Patient will be discharged home with these medications from the pharmacy. Impression: 1. COVID-19 2. Generalized weakness 3. Nausea 4. Closed head injury Lab Data Attestation: I reviewed the patient's lab results. Labs: Laboratory Results - last 24 hr 05/22/23 05/22/23 17:56 19:20 WBC 8.1 RBC 4.46 L Hgb 14.2 Hct 42.5 MCV 95.3 H MCH 31.8 MCHC 33.4 RDW Std Deviation 44.6 H RDW Coeff of Radha 12.7 Plt Count 177 MPV 10.5 Immature Gran % (Auto) 0.200 Neut % (Auto) 76.6 H Lymph % (Auto) 12.2 L [place] % (Auto) 10.4 H Eos % (Auto) 0.2 Baso % (Auto) 0.4 Absolute Neuts (auto) 6.2 Absolute Lymphs (auto) 0.98 Nucleated RBC % 0 Sodium 137 Potassium 4.0 Chloride 105 Carbon Dioxide 26.0 Anion Gap 6 BUN 9 Creatinine 0.83 Estim Creat Clear Calc 60.85 Est GFR (MDRD) Af Amer 113 Est GFR (MDRD) Non-Af 94 BUN/Creatinine Ratio 10.8 Glucose 99 Calcium 8.7 Total Bilirubin 0.70 AST 14 L ALT 26 Alkaline Phosphatase 55 Troponin I High Sens 9 Total Protein 6.5 Albumin 3.7 Globulin 2.8 Albumin/Globulin Ratio 1.3 Urine Color Yellow Urine Clarity Clear Urine pH 6.0 Ur Specific [place] 1.020 Urine Protein Negative Urine Glucose (UA) Normal Urine Ketones 50 H Urine Occult Blood Negative Urine Nitrite Negative Urine Bilirubin Negative Urine Urobilinogen Normal Ur Leukocyte Esterase 25 H Urine RBC 0 SEEN Urine WBC 0-5 SEEN Ur Squamous Epith Cells 0 SEEN Urine Bacteria 0 SEEN Urine Mucus 0 SEEN Radiography Diagnostic Testing: Clinical Impression(s) from Imaging Studies Brain CT 05/22/23 17:42 IMPRESSION: 1. No acute intracranial abnormality. 2. Underlying senescent change with small vessel ischemia. 3. Calcified mass along the inner table of the left frontal lobe compatible with a calcified meningioma. Electronically Signed: Henry Kirby MD at 18:52 EST , Cervical Spine CT 05/22/23 17:46 IMPRESSION: 1. No acute osseous abnormalities of the cervical spine. 2. Multilevel degenerative change with disc space narrowing and bony neural foraminal narrowing. Electronically Signed: Henry Kirby MD at 19:01 EST , Chest X-Ray 05/22/23 18:18 IMPRESSION: No radiographic evidence of acute cardiopulmonary disease. Electronically Signed: Henry Kirby MD at 18:55 EST , Discharge Plan Triage Chief Complaint: General Illness ED Provider: Jonathan Bedoya Dx/Rx/DC Orders Clinical Impression: COVID-19 Instructions: Caring for Someone Who Has COVID-19 Prescriptions: New ondansetron 4 mg tablet,disintegrating 4 mg PO Q8H PRN PRN (Reason: Nausea) Qty: 14 0RF Paxlovid 300 mg (150 mg x 2)-100 mg tablets,dose pack See Rx Instructions .ROUTE .COMPLEX Qty: 30 0RF Rx Instructions: take TWO 150 mg tablets of nirmatrelvir with ONE 100 mg tablet of ritonavir twice daily for 5 days No Action memantine 5 mg tablet 5 mg PO DAILY Primary Care Provider: Jacquelin Spaulding Referrals: Jacquelin Spaulding MD [Primary Care Provider] - Disposition Disposition: Home, Self Care What to do if you have Problems For any increased pain, shortness of breath, bleeding, nausea or vomiting, chestpain, or any unexpected problems, contact your Primary Care Provider. Call [facility] ([phone]) or report to the closest Emergency Room. Call 911 if necessary. 05/22/231958 <Electronically signed by Jonathan Bedoya DO> Cosigner Signature (if applicable): CC: Dr. Jacquelin Spaulding MD ~ Signed [facility] Work Phone: [phone] 884-437207-06-2023 Miscellaneous Notes* Telephone Encounter - Jacquelin Spaulding MD - 12/31/2022 10:09 AM EDT OK to refill as ordered Jacquelin Spaulding MD * Telephone Encounter - Maribell Gonzales Ma - 12/31/2022 9:40 AM EDT Rx pended correctly, please send Maribell Gonzales Ma * Telephone Encounter - Dione Pedro - 12/31/2022 9:08 AM EDT Patient has been identified by name and date of : Yes Last office visit in this department: Visit date not found RX INSTRUCTIONS: Patient aware RX will be sent to pharmacy. No need to notify patient. Patient phones requesting refills as follows: Patient will need short term to local pharmacy and then medical terminologist to home delivery pharmacy please. Also requesting a 90 day supply to home delivery pharmacy. Requested Prescriptions Pending Prescriptions Disp Refills memantine (NAMENDA) 5 mg tablet 180 tablet 3 Sig: Take 1 tablet by mouth twice daily. Please review and advise. Dione Pedro [facility] History of Present illness Narrative* Jacquelin Spaulding MD - 10/06/2022 1:20 PM EDT Chief Complaint Follow up HPI Melvin Riddle is a 82 year old male who presents here today for follow up Here with daughter, Salina. Lives with his Daughter. He has a mutt, a shiatzu, and a doodle. He walks 2 of the dogs at the same time but not all 3 at the same time. Walks about 2 times a day in the winter, more in the spring and summer. No bowel, Gi, or urinary issues. Does get up 3 x a night to urinate. Does drink 6-8 (?10) beers a night and water intermittently between that. No chest pains, dizziness, or SOB. Tries to watch diet and walks his dogs for exercise for 45 minutes to 1.5 hours, just depends on how he feels. Stopped having his donut at [facility], now has some cookies he eats after lunch. He did get out and mow the yard today. He states he is not going to give up his evening beer. Pulmonary Emphysema: Not on any medications or inhalers. Was seeing Dr. Armas, Pulmonary but no longer follows with him. Does not follow with any specialists. Has been having trouble sleeping both falling asleep and staying asleep. Daughter finds him up at night walking around. This has been an issue now for the last 2 weeks or so. She has tried giving him10 mg Melatonin once and it didn't help. He is a little antsy lately, daughter not sure if this is due to spring fever, no longer working at [employer], so is always trying to fine things to keep him occupied. His routine has changed. Memory: Follows with Geriatrics, Catherine Crow, last OV Mar 2022. Was advised to follow up in 6 months. He is taking Namenda 5 mg 1 pill BID. Was advised to take B12 1,000 mcg 1 pill BID. He feels the memory could be better but unsure if it has worsened in the past 6 months to a year. He has not gotten lost while walking the dogs, daughter has not noticed him getting lost when walking. He used to be an reader but has not been doing that much the last 6 months. He states he has just not been interested in reading. Denies having trouble focusing on the reading. Denies feeling down or depressed. Past medical history, appointments, medications, allergies reviewed. Previous Medical History No past medical history on file. Previous Surgical History PAST SURGICAL HISTORY Procedure Laterality Date COLONOSCOPY N/A 02/22/2018 Dr. Kaye, [facility] EGD N/A 02/22/2018 Dr. Kaye at [facility] HERNIA REPAIR HX N/A 02/[address] Kaye SKIN LESION Left Left pinna, removed. Family History FAMILY HISTORY Problem Relation Age of Onset other (myocardial infarction) Mother 44 COPD Father other (pneumonia) Father 80 Patient Allergies ALLERGIES No Known Allergies Current Medications No current outpatient medications on file prior to visit. No current facility-administered medications on file prior to visit. Social History Social History Tobacco Use Smoking status: Former Packs/day: 0.75 Years: 25.00 Pack years: 18.75 Types: Cigarettes Smokeless tobacco: Former Types: Snuff Tobacco comments: quit 30 years ago Vaping Use Vaping Use: Never used Substance Use Topics Alcohol use: Yes Drug use: Never EXAM: BP 120/78 Pulse 66 Resp 16 Wt 71.1 kg (156 lb 12.8 oz) BMI 26.91 kg/m General Appearance: Well appearing, alert, in no acute distress, well-hydrated, well nourished.. Lungs: Lungs clear to auscultation. No wheezing, rhonchi, rales.. Heart: RRR without murmur, gallop, or rubs. No ectopy. Health Maintenance List SPIROMETRY Never done SHINGRIX VACCINE(1 of 2) Never done COVID-19 VACCINE(4 - Booster for Moderna series) due on 02/16/2022 ADVANCE DIRECTIVE DISCUSSION Never done DEPRESSION ASSESSMENT Never done INFLUENZA(Season Ended) due on 02/26/2023 DIABETES SCREEN due on 03/20/2025 DTAP,TDAP,TD(2 - Td or Tdap) due on 09/09/2031 PNEUMOCOCCAL: 65+ Completed Data reviewed None ASSESSMENT/PLAN: 1. . 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 Crow Continue current medications. - MEMANTINE 5 MG TABLET 2. Pulmonary emphysema, unspecified emphysema type (HCC) - ICD9: 492.8, ICD10: J43.9 stable 3. Vitamin B12 deficiency - ICD9: 266.2, ICD10: E53.8 Continue with the B12 1,000 mcg BID Check labs 4. Sleeping difficulties - ICD9: 780.50, ICD10: G47.9 Recommend taking Melatonin 10 mg at bedtime; call if not helping in 2-4 weeks 5. Excessive alcohol intake Monitor; CBC and CMP normal last year Follow up in 6 months. Will notify of lab results I agree with the Chief Complaint, ROS, and Past Histories independently gathered by the clinical residential support specialist and the remaining scribed note accurately describes my personal service to the patient. Medical Decision Making: Problems: Moderate: 1+ chronic illnesses with change Data: Unique test(s) ordered: 2 Risk: Moderate: Drug management Medical Decision Making Level: 4 - Moderate Jacquelin Spaulding MD The documentation for this note was completed by Chelo Graham Ma acting as scribe for Jacquelin Spaulding MD. October 06, 2022 1:25 PM. Chelo Graham Ma documented in this encounter[facility]23 Miscellaneous Notes* Telephone Encounter - Catherine Crow MD - 06/30/2022 4:00 PM EST Unfortunately [employer] has been giving us issues about this code, when it is usually covered. I can change the code and resubmit. Thanks Catherine Crow MD * Telephone Encounter - Cristina Dominguez - 06/30/2022 2:59 PM EST Patient's daughter, Salina Ames, states that patient received a denial of coverage from [employer] for 'neuropsychological testing for 1.5 hours' that occurred on 2021. Patient had an appointment with Dr. Crow on that date for cognitive testing, and Salina is wondering if perhaps the testing was coded incorrectly. Salina states they have already paid the bill for the [facility] on [facility]20[facility]22. I gave Salina our Billing Department phone number and am asking Dr. Crow to check the coding for that day's service. Salina's phone number is [phone]. She is asking if Dr. Crow re-submits the bill and how we proceed from here to fix this problem. Cristina Dominguez June 30, 2022 3:04 PM documented in this encounterMer[facility]12-14-2022 Instructions* Patient Instructions* Marion Blair APRN.SAVAGE - 06/10/2022 8:52 AM EST Use steroid ointment to rash Recommend wearing undergarments/comfy pants May follow up with dermatology: [facility] in [place] if rash is not improving. Follow up as needed. documented in this encounterMer[facility]12-14-2022 History of Present illness Narrative* Marion KoenigRODRIGO thomas.INSTALLATION SUPERINTENDENT - 06/10/2022 8:40 AM EST This is a 81 year old male who presents today with: Patient presents with: Follow Up: rash at belt line HISTORY OF PRESENT ILLNESS: Melvin Riddle is a 81 year old male. Patient presents with: Follow Up: rash at belt line Here in the office for rash follow up. Saw Dr. Everett for rash around waist in March. Unsure if rash was shingles, varicella swab came back negative. Given prescription for triamcinolone cream. Rash never improved. Rash is very itchy and has crusting. No seeping, fever, or chills. Refers that hedoes not wear undergarments with his jeans. Denies using any new health and beauty/laundry products. PAST MEDICAL HISTORY: No past medical history on file. PAST SURGICAL HISTORY Procedure Laterality Date COLONOSCOPY N/A 02/22/2018 Dr. Kaye, [facility] EGD N/A 02/22/2018 Dr. Kaye at [facility] HERNIA REPAIR HX N/A 02/[address] Kaye SKIN LESION Left Left pinna, removed. ALLERGIES Patient has no known allergies. MEDICATIONS Current Outpatient Medications Medication Sig memantine (NAMENDA) 5 mg tablet Take 1 tablet by mouth twice daily. No current facility-administered medications for this visit. FAMILY HISTORY Problem Relation Age of Onset other (myocardial infarction) Mother 44 COPD Father other (pneumonia) Father 80 Social History Tobacco Use Smoking status: Former Packs/day: 0.75 Years: 25.00 Pack years: 18.75 Types: Cigarettes Smokeless tobacco: Former Types: Snuff Tobacco comments: quit 30 years ago Vaping Use Vaping Use: Never used Substance Use Topics Alcohol use: Yes Drug use: Never REVIEW OF SYSTEMS GENERAL: No weight loss, malaise or fevers/chills HEENT: Negative for frequent or significant headaches, No changes in hearing or vision. NECK: Negative for lumps, goiter, pain and significant neck swelling RESPIRATORY: Negative for cough, hemoptysis, wheezing, dyspnea or shortness of breath CARDIOVASCULAR: Negative for chest pain, leg swelling, orthopnea, or palpitations GI: No nausea, vomiting, or diarrhea/constipation. No hematochezia/melena. No heartburn or reflux symptoms. : No history of dysuria, frequency or incontinence MUSCULOSKELETAL: Negative for joint pain or swelling. SKIN:+ Rash ENDOCRINE: Negative for cold or heat intolerance, polyuria, polydipsia and goiter NEURO: No history of headaches, syncope, paralysis, seizures or tremors MOOD: Negative for depression, anxiety, or suicidal ideation. EXAM: BP 150/80 Pulse 72 Resp 16 Wt 70.8 kg (156 lb) BMI 26.78 kg/m PHYSICAL EXAM: General Appearance: Well appearing, alert, in no acute distress, well-hydrated, well nourished. Skin: + Erythematic, dry, patches with crusting noted around anterior waist, coincides where metal buttons are located on jeans. Head: Normocephalic, no masses, lesions, tenderness or abnormalities. Eyes: Anicteric sclera. Extraocular movements are intact. Lungs: Lungs clear to auscultation. No wheezing, rhonchi, rales. Heart: RRR without murmur, gallop, or rubs. No ectopy. Extremities: No deformities, edema, skin discoloration, clubbing or cyanosis. Good capillary refill. Peripheral Pulses: Normal, Capillary refill <2secs, strong peripheral pulses. Neurologic: Gait normal. Sensation grossly intact. ASSESSMENT/PLAN: 1. Contact dermatitis, unspecified contact dermatitis type, unspecified trigger - ICD9: 692.9, ICD10: L25.9 (primary diagnosis) - Topical steriod tx with Rx for steriod cream/ointment- see orders - Concern for possible metal allergy, instructed to wear cotton undergarments when wearing jeans. - discussed skin care of rash - follow up if symptoms persist or worsen. - If symptoms do not improve recommend follow-up with dermatology. - TRIAMCINOLONE ACETONIDE 0.5 % TOPICAL OINTMENT - CONSULT TO DERMATOLOGY 2. Mild dementia - ICD9: 294.20, ICD10: F03.A0 - Refill provided. - MEMANTINE 5 MG TABLET Follow-up as needed or sooner if symptoms get worse or do not improve. Discussed treatment plan and patient voices understanding. Patient's questions answered appropriately. Medications and potential side effects were discussed and patient voices understanding. Marion Blair APRN.INSTALLATION SUPERINTENDENT This note was partially generated using [employer] voice recognition system. Note was reviewed for accuracy. There may be minor misspellings or grammar miscues with [employer] voice recognition. documented in this encounterMer[facility]10-27-2022 Instructions* Patient Instructions* Marion Blair APRN.CNP - 04/23/2022 11:45 AM EDT Start Paxlovid, take as directed. Continue supportive care at home. May use over the counter cold and cough medications as needed. May use Tessalon Perles as needed for cough. Quarantine for 5 days from the onset of symptoms, wear a mask for an additional 5 days per the CDC. Red flag symptoms go to ER. Follow up as needed. FACT SHEET FOR PATIENTS, PARENTS, AND CAREGIVERS EMERGENCY USE AUTHORIZATION (EUA) OF PAXLOVID FOR CORONAVIRUS DISEASE 2019 (COVID-19) You are being given this Fact Sheet because your healthcare provider believes it is necessary to provide you with PAXLOVID for the treatment of snew-nc-kqesjdid coronavirus disease (COVID-19) caused by the SARS-CoV-2 virus. This Fact Sheet contains information to help you understand the risks and benefits of taking the PAXLOVID you have received or may receive. The U.S. Food and Drug Administration (FDA) has issued an Emergency Use Authorization (EUA) to makePAXLOVID available during the COVID-19 pandemic (for more details about an EUA please see What is an Emergency Use Authorization? at the end of this document). PAXLOVID is not an FDA-approved medicine in the [place]. Read this Fact Sheet for information about PAXLOVID. Talk to your healthcareprovider about your options or if you have any questions. It is your choice to take PAXLOVID. What is COVID-19? COVID-19 is caused by a virus called a coronavirus. You can get COVID-19 through close contact withanother person who has the virus. COVID-19 illnesses have ranged from very rswi-gi-hcsoyn, including illness resulting in . While information so far suggests that most COVID-19 illness is mild, serious illness can happen and maycause some of your other medical conditions to become worse. Older people and people of all ages with severe, long lasting (chronic) medical conditions like heart disease, lung disease, and diabetes,for example seem to be at higher risk of being hospitalized for COVID-19. What is PAXLOVID? PAXLOVID is an investigational medicine used to treat acyz-qu-glcklnna COVID-19 in adults and children [12 years of age and older weighing at least 88 pounds (40 kg)] with positive results of direct SARS-CoV-2 viral testing, and who are at high risk for progression to severe COVID-19, including hospitalization or . PAXLOVID is investigational because it is still being studied. There is limited information about the safety and effectiveness of using PAXLOVID to treat people with zjqm-gh-ovelvbxq COVID-19. The FDA has authorized the emergency use of PAXLOVID for the treatment of sbta-xg-utyycrpu COVID-19in adults and children [12 years of age and older weighing at least 88 pounds (40 kg)] with a positive test for the virus that causes COVID-19, and who are at high risk for progression to severe COVID-19, including hospitalization or , under an EUA. 1 Revised: 12 September 2021 What should I tell my healthcare provider before I take PAXLOVID? Tell your healthcare provider if you: Have any allergies Have liver or kidney disease Are or plan to become Are a child Have any serious illnesses Tell your healthcare provider about all the medicines you take, including prescription and sbog-zfv-ertdfyv medicines, vitamins, and herbal supplements. Some medicines may interact with PAXLOVID and may cause serious side effects. Keep a list of your medicines to show your healthcare provider and pharmacist when you get a new medicine. You can ask your healthcare provider or pharmacist for a list of medicines that interact with PAXLOVID. Do not start taking a new medicine without telling your healthcare provider. Your healthcare provider can tell you if it is safe to take PAXLOVID with other medicines. Tell your healthcare provider if you are taking combined hormonal contraceptive. PAXLOVID may affect how your control pills work. Females who are able to become should use another effective alternative form of contraception or an additional barrier method of contraception. Talk to your healthcare provider if you have any questions about contraceptive methods thatmight be right for you. How do I take PAXLOVID? PAXLOVID consists of 2 medicines: nirmatrelvir and ritonavir. Take 2 pink tablets of nirmatrelvir with 1 white tablet of ritonavir by mouth 2 times each day (in the morning and in the evening) for 5 days. For each dose, take all 3 tablets at the same time. If you have kidney disease, talk to your healthcare provider. You may need a different dose. Swallow the tablets whole. Do not chew, break, or crush the tablets. Take PAXLOVID with or without food. Do not stop taking PAXLOVID without talking to your healthcare provider, even if you feel better. If you miss a dose of PAXLOVID within 8 hours of the time it is usually taken, take it as soon as you remember. If you miss a dose by more than 8 hours, skip the missed dose and take the next dose atyour regular time. Do not take 2 doses of PAXLOVID at the same time. If you take too much PAXLOVID, call your healthcare provider or go to the nearest hospital emergency room right away. If you are taking a ritonavir-or cobicistat-containing medicine to treat hepatitis C or Human Immunodeficiency Virus (HIV), you should continue to take your medicine as prescribed by your healthcare provider. Talk to your healthcare provider if you do not feel better or if you feel worse after 5 days. Who should generally not take PAXLOVID? Do not take PAXLOVID if: You are allergic to nirmatrelvir, ritonavir, or any of the ingredients in PAXLOVID You are taking any of the following medicines: Alfuzosin Pethidine, propoxyphene Ranolazine Amiodarone, dronedarone, flecainide, propafenone, quinidine Colchicine Lurasidone, pimozide, clozapine Dihydroergotamine, ergotamine, methylergonovine Lovastatin, simvastatin Sildenafil (Revatio ) for pulmonary arterial hypertension (PAH) Triazolam, oral midazolam Apalutamide Carbamazepine, phenobarbital, phenytoin Rifampin [place] s Wort (hypericum perforatum) Taking PAXLOVID with these medicines may cause serious or life-threatening side effects or affect how PAXLOVID works. These are not the only medicines that may cause serious side effects if taken with PAXLOVID. PAXLOVID may increase or decrease the levels of multiple other medicines. It is very important to tell your healthcare provider about all of the medicines you are taking because additional laboratory tests or changes in the dose of your other medicines may be necessary while you are taking PAXLOVID. Your healthcare provider may also tell you about specific symptoms to watch out for that may indicate that you need to stop or decrease the dose of some of your other medicines. What are the important possible side effects of PAXLOVID? Possible side effects of PAXLOVID are: Allergic Reactions. Allergic reactions can happen in people taking PAXLOVID, even after only 1 dose. Stop taking PAXLOVID and call your healthcare provider right away if you get any of the following symptoms of an allergic reaction: hives trouble swallowing or breathing swelling of the mouth, lips, or face throat tightness hoarseness skin rash Liver Problems. Tell your healthcare provider right away if you have any of these signs and symptoms of liver problems: loss of appetite, yellowing of your skin and the whites of eyes (jaundice), dark-colored urine, pale colored stools and itchy skin, stomach area (abdominal) pain. Resistance to HIV Medicines. If you have untreated HIV infection, PAXLOVID may lead to some HIV medicines not working as well in the future. Other possible side effects include: altered sense of taste diarrhea high blood pressure muscle aches These are not all the possible side effects of PAXLOVID. Not many people have taken PAXLOVID. Serious and unexpected side effects may happen. PAXLOVID is still being studied, so it is possible that all of the risks are not known at this time. What other treatment choices are there? Veklury (remdesivir) is FDA-approved for the treatment of ezxy-fk-jzkfavvc COVID-19 in certain adults and children. Talk with your doctor to see if Veklury is appropriate for you. Like PAXLOVID, FDA may also allow for the emergency use of other medicines to treat people with COVID-19. Go to https://www.fda.gov/xuqiqvjln-ggnpxiyjvssi-qdmzaujnmlj/tvn-xuugw-cbgsvobprz-and- policy-framework/fgrxwqxia-jdb-erqypurobditf for information on the emergency use of other medicines that are authorized by FDA to treat people with COVID-19. Your healthcare provider may talk with you aboutclinical trials for which you may be eligible. It is your choice to be treated or not to be treated with PAXLOVID. Should you decide not to receive it or for your child not to receive it, it will not change your standard medical care. What if I am or ? There is non destructive testing supervisor treating women or mothers with PAXLOVID. For a motherand unborn baby, the benefit of taking PAXLOVID may be greater than the risk from the treatment. Ifyou are , discuss your options and specific situation with your healthcare provider. It is recommended that you use effective barrier contraception or do not have sexual activity whiletaking PAXLOVID. If you are , discuss your options and specific situation with your healthcare provider. How do I report side effects with PAXLOVID? Contact your healthcare provider if you have any side effects that bother you or do not go away. Report side effects to [employer] at www.fda.gov/[employer] or call 7-891-VWT4514 or you can reportside effects to [employer] at the contact information provided below. Website Fax number Telephone number wwwSkyepack How should I store PAXLOVID? Store PAXLOVID tablets at room temperature, between 68?F to 77?F (20?C to 25?C). How can I learn more about COVID-19? Ask your healthcare provider. Visit https://www.cdc.gov/COVID19. Contact your local or state public health department. What is an Emergency Use Authorization (EUA)? The [place] FDA has made PAXLOVID available under an emergency access mechanism called an Emergency Use Authorization (EUA). The EUA is supported by a [employer] Aide of Health and Human Service (HHS) declaration that circumstances exist to justify the emergency use of drugs and biological productsduring the COVID-19 pandemic. PAXLOVID for the treatment of ggpl-ww-bzudobda COVID-19 in adults and children [12 years of age andolder weighing at least 88 pounds (40 kg)] with positive results of direct SARS-CoV-2 viral testing, and who are at high risk for progression to severe COVID-19, including hospitalization or , has not undergone the same type of review as an FDA-approved product. In issuing an EUA under the COVID-19 public health emergency, the FDA has determined, among other things, that based on the total amount of scientific evidence available including data from adequate and well-controlled clinical trials, if available, it is reasonable to believe that the product may be effective for diagnosing, treating, or preventing COVID-19, or a serious or life-threatening disease or condition caused by COVID-19; that the known and potential benefits of the product, when used to diagnose, treat, or prevent such disease or condition, outweigh the known and potential risks of such product; and that there are no adequate, approved, and available alternatives. All of these criteria must be met to allow for the product to be used in the treatment of patients during the COVID-19 pandemic. The EUA for PAXLOVID is in effect for the duration of the COVID-19 declaration justifying emergency use of this product, unless terminated or revoked (after which the products may no longer be used under the EUA). Additional Information For general questions, visit the website or call the telephone number provided below. Website Telephone number wwwSnap [email or web address] (2-105-F15-PACK) You can also go to www.[employer] or call for more information. Pfizer Distributed by [employer] [place] [address] [id number] Revised: 12 September 2021 documented in this encounterMer[facility]10-27-2022 History of Present illness Narrative* Marion Blair APRN.CNP - 04/23/2022 11:20 AM EDT Chief Complaint Patient presents with: Acute Visit: Covid + This Team Access Model encounter involved medical decision making outside of a scheduled office visit. Patient was offered a virtual/telemedicine appointment in lieu of an office visit due to recommendations to reduce patient exposure to COVID-19. Telephone was used for evaluation of this patient. Patient agrees to the visit: Yes Patient Location: [facility] Melvin Riddle is a 81 year old male who is contacted today for a phone visit This is an establishedpatient of Dr. Jacquelin Spaulding MD Reports: Covid +, was seen in [facility] care for cold symptoms. Having chest/sinus congestion, cough,and fatigue. Symptoms started 04/21/2022. No SOB or difficulty with breathing. Has been taking tylenol and day time cold and flu medication. Coughing up clear mucus. Past medical history, appointments, medications, allergies reviewed 04/23/2022 Previous Medical History No past medical history on file. Previous Surgical History PAST SURGICAL HISTORY Procedure Laterality Date COLONOSCOPY N/A 02/22/2018 Dr. Kaye, [facility] EGD N/A 02/22/2018 Dr. Kaye at [facility] HERNIA REPAIR HX N/A 02/[address] Kaye SKIN LESION Left Left pinna, removed. Family History FAMILY HISTORY Problem Relation Age of Onset other (myocardial infarction) Mother 44 COPD Father other (pneumonia) Father 80 Patient Allergies ALLERGIES No Known Allergies Current Medications Current Outpatient Medications on File Prior to Visit Medication Sig triamcinolone acetonide (KENALOG) 0.1 % cream Apply 1 application to affected area twice daily. Apply sparingly to area for rash/itching. memantine (NAMENDA) 5 mg tablet Take 1 tablet by mouth twice daily. No current facility-administered medications on file prior to visit. Social History Social History Tobacco Use Smoking status: Former Packs/day: 0.75 Years: 25.00 Pack years: 18.75 Types: Cigarettes Smokeless tobacco: Former Types: Snuff Tobacco comments: quit 30 years ago Vaping Use Vaping Use: Never used Substance Use Topics Alcohol use: Yes Drug use: Never Review of Symptoms GENERAL: + Fatigue HEENT: Negative for headaches No eye discharge or redness No earaches No sore throat + Sinus/Chest Congestion NECK: Negative for pain or swelling. No lumps RESPIRATORY: + Cough CARDIOVASCULAR: Negative for chest pain GI: No nausea, vomiting, or diarrhea MUSCULOSKELETAL: Negative for bodyaches SKIN: Negative for rash or itching Neuro: No lightheadedness or dizziness EXAM: There were no vitals taken for this visit. Limited exam as visit was completed over the phone platform. Virtual visit completed using video, limited exam completed. Patient sounds or appears ill: Yes General Appearance: Well appearing, alert, in no acute distress, well-hydrated, well nourished. Skin: Skin color normal Head: Normocephalic. No facial swelling or redness. EENT: Eyes nonreddened. No discharge. External ears nonreddened and no swelling. Neck: No mass or lesions. No swelling. FROM Patient is not able to speak in complete sentences: N/A Patient has labored breathing: No. Patient is audibly coughing: Yes Psych: Attitude - cooperative, easily engaged in conversation Affect - Euthymic, normal mood Mental status: Alert. Speech is clear and fluent with good repetition, comprehension Appearance - Normal hygiene and grooming appropriate Coordination: No abnormal or extraneous movements. Gait/Stance: Posture is normal. Health Maintenance List SPIROMETRY Never done SHINGRIX VACCINE(1 of 2) Never done ADVANCE DIRECTIVE DISCUSSION Never done DEPRESSION ASSESSMENT Never done COVID-19 VACCINE(4 - Booster for Moderna series) due on 02/16/2022 INFLUENZA(1) due on 02/26/2022 DIABETES SCREEN due on 03/20/2025 DTAP,TDAP,TD(2 - Td or Tdap) due on 09/09/2031 PNEUMOCOCCAL: 65+ Completed Data reviewed Last 5 Encounter BP Readings: Date: BP: 04/22/2022 122/68 04/21/2022 136/70 03/20/2022 137/59 02/27/2022 120/70 09/10/2021 122/70 BMI Readings from Last 5 Encounters: 04/22/22 : 25.92 kg/m 04/21/22 : 25.78 kg/m 03/20/22 : 25.88 kg/m 02/27/22 : 25.31 kg/m 09/10/21 : 26.21 kg/m Last 5 Encounter Wt Readings: Date: Wt: 04/22/2022 68.5 kg (151 lb) 04/21/2022 68.1 kg (150 lb 3.2 oz) 03/20/2022 68.4 kg (150 lb 12.8 oz) 02/27/2022 66.9 kg (147 lb 7.2 oz) 09/10/2021 69.3 kg (152 lb 11.2 oz) Medication and allergy list reviewed, reconciled and updated 04/23/2022 Total appointment time on phone with patient = 11-20 minutes Nirmatrelvir/Ritonavir (Paxlovid) Eligibility and Patient Discussion [facility] Formulary Restriction Criteria: Adult outpatients 18 years and older with ALL of the following: [x] Patient has positive SARS-COV-2 viral test (PCR or antigen test) during current illness [x] Patient has symptoms for 5 days or less [x] Not requiring hospitalization at any time for management of COVID-19 [x] Not requiring supplemental oxygen or a change in baseline supplemental oxygen [x] Not utilized for pre-exposure or post-exposure prophylaxis for prevention of COVID-19 [x] Patient does not have severe renal impairment (eGFR < 30 mL/min) or severe hepatic impairment (Child-Shore Class C) [x] Meeting at least one of the criteria for high risk of progression to severe COVID-19: [x] Age over 65 years [] Cancer [] Chronic kidney disease [] Chronic liver disease [] Chronic lung diseases, including cystic fibrosis [] Dementia or other neurological conditions [] Diabetes (type 1 or type 2) [] Disabilities, including Down syndrome and neurodevelopmental disorders [] Heart conditions [] HIV infection [] Immunocompromised state [] Mental health conditions [] Medical related technological dependence (tracheostomy, gastrostomy, or positive pressure ventilation (not related to COVID) [] Overweight and obesity (BMI greater or equal to 25 for adults) [] Physical inactivity [] [] Sickle cell disease or thalassemia [] Smoking, current or former [] Solid organ or blood stem cell transplant [] Stroke or cerebrovascular disease [] Substance use disorders [] Tuberculosis [] People from racial and ethnic minority groups Criteria above are met: Yes Date of Positive Test:04/22/2022 Date of Symptom Onset: 04/21/2022 Patient received COVID vaccine: Yes Drug-Drug interactions reviewed: Yes. No drug interactions were identified. I have discussed the use of the investigational therapeutic, nirmatrelvir/ritonavir, for the treatment of mild to moderate COVID-19 and its use under Emergency Use Authorization with the patient. The patient was informed that nirmatrelvir/ritonavir is not an FDA approved drug and that it is authorized for use under this Emergency Use Authorization. The patient was also informed of the significant known benefits and potential risks of nirmatrelvir/ritonavir, and the extent to which such potential risks and benefits are unknown. The patient was informed that there is mandatory reporting of all medication errors and serious adverse events potentially related to nirmatrelvir/ritonavir treatment within 7 calendar days from the onset of the event and that events up to 28 days after completion of therapy need to be reported. The discussion included alternatives to receiving nirmatrelvir/rit onavir, including clinical trials, and potential the risks and benefits of those alternatives. The patient was provided electronically with the Fact Sheet for Patients, Parents and Caregivers. The patient was also instructed that in addition to the treatment with nirmatrelvir/ritonavir, he/she should continue to self-isolate and use infection control measures (e.g., wear mask, isolate, social distance, avoid sharing personal items, clean and disinfect high touch surfaces, and frequent h andwashing) according to CDC guidelines. The patient stated understanding and gave verbal consent to proceeding with nirmatrelvir/ritonavir treatment. Marion Blair APRN.CNP April 23, 2022 11:46 AM ASSESSMENT/PLAN: 1. COVID-19 - ICD9: 079.89, ICD10: U07.1 - Start Paxlovid, take as directed. - Continue supportive care at home. - May use Tessalon Perles as needed for cough. - Red flag symptoms given to patient and daughter, they both verbalized understanding when to seek emergency care. - Quarantine for 5 days, wear a mask an additional 5 days per the cdc. - NIRMATRELVIR 300 MG (150 MG X2)-RITONAVIR 100 MG TABLET,DOSE PACK(EUA) - BENZONATATE 100 MG CAPSULE Follow up as needed or sooner if symptoms do not improve. Discussed treatment plan and patient voices understanding. Patient's questions answered appropriately. Medications and potential side effects were discussed and patient voices understanding. Marion Blair APRN.CNP This note was partially generated using [employer] voice recognition system. Note was reviewed for accuracy. There may be minor misspellings or grammar miscues with [employer] voice recognition. documented in this encounterMer[facility]22 History of Present illness Narrative* Waqas Olmos APRN.CNP - 04/22/2022 10:24 AM EDT Subjective HPI HPI Melvin Riddle is a 81 year old male who presents today for CC of cough, congestion, sob, feverish. This started 1 day ago. Has tried nothing for relief. Symptoms are worsened by nothing. Risk factors no known sick exposures. All covid vaccines. .Patient presents with: Chest Congestion: cough, sob, fatigue x 1day No past medical history on file. PAST SURGICAL HISTORY Procedure Laterality Date COLONOSCOPY N/A 02/22/2018 Dr. Kaye, [facility] EGD N/A 02/22/2018 Dr. Kaye at [facility] HERNIA REPAIR HX N/A 02/[address] Kaye SKIN LESION Left Left pinna, removed. ALLERGIES Patient has no known allergies. MEDICATIONS triamcinolone acetonide (KENALOG) 0.1 % cream Apply 1 application to affected area twice daily. Apply sparingly to area for rash/itching. memantine (NAMENDA) 5 mg tablet Take 1 tablet by mouth twice daily. FAMILY HISTORY Problem Relation Age of Onset other (myocardial infarction) Mother 44 COPD Father other (pneumonia) Father 80 Social History Tobacco Use Smoking status: Former Packs/day: 0.75 Years: 25.00 Pack years: 18.75 Types: Cigarettes Smokeless tobacco: Former Types: Snuff Tobacco comments: quit 30 years ago Vaping Use Vaping Use: Never used Substance Use Topics Alcohol use: Yes Drug use: Never Review of Systems Constitutional: Positive for chills, fever and malaise/fatigue. HENT: Positive for congestion. Negative for ear pain, nosebleeds and sore throat. Respiratory: Positive for cough and shortness of breath. Negative for wheezing. Cardiovascular: Negative for chest pain. Gastrointestinal: Negative for abdominal pain, diarrhea and vomiting. Musculoskeletal: Negative for neck pain. Skin: Negative for rash. Objective Blood pressure 122/68, pulse 78, temperature 37.5 C (99.5 F), resp. rate 16, weight 68.5 kg (151 lb), SpO2 94 %. Physical Exam Constitutional: General: He is not in acute distress. Appearance: He is not toxic-appearing or diaphoretic. HENT: Head: Normocephalic and atraumatic. Cardiovascular: Rate and Rhythm: Normal rate and regular rhythm. Heart sounds: Normal heart sounds, S1 normal and S2 normal. Pulmonary: Effort: Pulmonary effort is normal. Breath sounds: Normal breath sounds. Lymphadenopathy: Cervical: No cervical adenopathy. Right cervical: No superficial cervical adenopathy. Left cervical: No superficial cervical adenopathy. Neurological: Mental Status: He is alert and oriented to person, place, and time. Gait: Gait is intact. ASSESSMENT/PLAN: 1. URI, acute - ICD9: 465.9, ICD10: J06.9 - Discussed viral etiology and rationale for treatment. - Symptomatic treatment with prn analgesia - Supportive care with fluids and rest - Follow up in 3-5 days if symptoms persist or sooner if worsening of symptoms Discussed quarantine, social distancing otc medications discussed Push fluids -If you experience chest pain/shortness of breath go to ER -is interested in paxlovid if positive, setting up for virtual [facility] care. -if positive for flu tx with tamiflu. - COVID WITH FLUA+B, ROUTINE Waqas Olmos APRN.CNP documented in this encounterMer[facility]10-26-2022 Instructions* Patient Instructions* Waqas Olmos APRN.CNP - 04/22/2022 10:03 AM EDT How to Manage Common Symptoms Associated with COVID for Adults Fever- Fever is a temperature over 100.4 F and can occur when the body is fighting an infection. Tohelp treat a fever: Drink plenty of fluids and stay well hydrated. Eat small amounts of easy to digest food. Rest. Your body needs rest to recover, but getting up and moving around the house frequently is a good idea. You should try to continue doing your normal daily activities (bathing, toileting, grooming, cooking), though you will probably feel tired, and need to rest often. Avoid any heavy activity or exercise, as this will increase your body temperature. Dress in light clothing and stay covered in a light sheet. Keep the room temperature cool. Take a slightly warm (not cold or cool) bath, or apply damp washcloths to the forehead and wrists. Cough- Cough is a common symptom associated with COVID and can be bothersome. To help treat a cough: Stay well hydrated. Try warm water or tea with lemon and/or honey to help soothe the cough. Use a humidifier to add moisture to the air. Try a product with menthol, like a cough drop or a rub for your chest such as Vicks, which can helpreduce cough. Try cough drops. Avoid smoking and other strong odors or perfumes. Try breathing exercises to keep your lungs open and clear. Take a big deep breath through your noseand hold for 5 seconds before slowly releasing. Repeat frequently, while you are awake. Congestion- Runny nose or nasal congestion can occur with COVID. Treatment can help relieve symptoms: Try OTC nasal saline spray, or nasal saline rinse to relieve mucus congestion. Nasal strips can help keep nasal passages open, to increase airflow. Elevating your head with an extra pillow in bed can help reduce congestion. Using a humidifier can increase moisture in the air, and make breathing easier. Sore Throat- Another common symptom with COVID, can be managed at home by: Stay well hydrated. Gargle with salt water - mix teaspoon salt with 1 cup of warm water and gargle. This helps to loosen mucus in the back of the throat and may reduce discomfort. Try ice chips, popsicles or lozenges to soothe the throat. Nausea/Vomiting/Diarrhea- These are common symptoms, and staying hydrated is most important. If you are nauseous or vomiting, start with small sips of water every 10-15 minutes and increase astolerated. You can try sucking an ice cube too. If tolerating, you can try pedialyte or Gatorade, or flat sprite or ember-claudia. Start slowly and increase as you are able to. Instead of meals, try smaller, more frequent snacks. Try eating bland foods like crackers, toast, rice, and applesauce. Avoid spicy, greasy or fried foods and dairy containing foods. Even if you aren't feeling hungry due to lack of smell or taste, it is important to try to take in some food when you are able. After drinking and eating, rest in an upright position for up to two hours as needed to help decrease nauseous feelings. Try closing your eyes, avoid moving and watching TV. Avoid strong odors that can make you feel more nauseated. When to seek emergency medical attention Look for emergency warning signs for COVID-19. If having any of these symptoms, seek emergency medical care immediately: Trouble breathing Persistent pain or pressure in the chest New confusion Inability to wake or stay awake Bluish lips or face *This list is not all possible symptoms. Please call your medical provider for any other symptoms that are severe or concerning to you. documented in this encounterMer[facility]10-25-2022 History of Present illness Narrative* Vikas Everett MD - 04/21/2022 3:48 PM EDT Chief Complaint Patient presents with: Rash: X 3 weeks on waistline HPI Melvin Riddle is a 81 year old male with PMH: Alzheimers dementia who presents here today for AboveComplaints. Accompanied today by daughter Kathie. Patient states that he has had itchy rash on his left lower abdomen which started about 3 weeks ago, but just told his daughter yesterday. Treating with Coconut oil which helps temporarily. Started Namenda on 03/20. Has not had any change in soaps, detergents, lotions. Denies fever/chills, purulent drainage, bloody discharge, vesicles, pustules. Daughter worried about shigles. Daughter noted he started coughing while in the room. Denies fever, chills, SOB, headache, sore throat, loss of taste/smell, myalgias, fatigue, nasal congestion, rhinorrhea, nausea, vomiting diarrhea. Past medical history, appointments, medications, allergies reviewed. Previous Medical History No past medical history on file. Previous Surgical History PAST SURGICAL HISTORY Procedure Laterality Date COLONOSCOPY N/A 02/22/2018 Dr. Kaye, [facility] EGD N/A 02/22/2018 Dr. Kaye at [facility] HERNIA REPAIR HX N/A 02/[address] Kaye SKIN LESION Left Left pinna, removed. Family History FAMILY HISTORY Problem Relation Age of Onset other (myocardial infarction) Mother 44 COPD Father other (pneumonia) Father 80 Patient Allergies ALLERGIES No Known Allergies Current Medications Current Outpatient Medications on File Prior to Visit Medication Sig memantine (NAMENDA) 5 mg tablet Take 1 tablet by mouth twice daily. No current facility-administered medications on file prior to visit. Social History Social History Tobacco Use Smoking status: Former Packs/day: 0.75 Years: 25.00 Pack years: 18.75 Types: Cigarettes Smokeless tobacco: Former Types: Snuff Tobacco comments: quit 30 years ago Vaping Use Vaping Use: Never used Substance Use Topics Alcohol use: Yes Drug use: Never Review of Symptoms REVIEW OF SYSTEMS See HPI EXAM: BP 136/70 Pulse 76 Resp 16 Wt 68.1 kg (150 lb 3.2 oz) SpO2 97% BMI 25.78 kg/m General Appearance: Well appearing, alert, in no acute distress, well-hydrated, well nourished.. Skin: palm sized erythematous rash over RLQ abdomen with multiple crusted circles which may have been vesicles at one time. No warmth to touch, induration, drainage. Lungs: Lungs clear to auscultation. No wheezing, rhonchi, rales.. Health Maintenance List SPIROMETRY Never done SHINGRIX VACCINE(1 of 2) Never done ADVANCE DIRECTIVE DISCUSSION Never done DEPRESSION ASSESSMENT Never done COVID-19 VACCINE(4 - Booster for Moderna series) due on 02/16/2022 INFLUENZA(1) due on 02/26/2022 DIABETES SCREEN due on 03/20/2025 DTAP,TDAP,TD(2 - Td or Tdap) due on 09/09/2031 PNEUMOCOCCAL: 65+ Completed ASSESSMENT/PLAN: 1. Rash - ICD9: 782.1, ICD10: R21 (primary diagnosis) Possible shingles. Will send PCR swab to confirm. Discussed it has been more than 3 days since rashdeveloped, so would not start Valtrex or acyclovir. He is not having any pain, so will treat itching with triamcinolone cream x 2 weeks. Red flags for re-assessment reviewed with patient in detail. - VARICELLA ZOSTER PCR - TRIAMCINOLONE ACETONIDE 0.1 % TOPICAL CREAM 2. Acute cough - ICD9: 786.2, ICD10: R05.1 Normal exam. To call with worsening/changing symptoms and treat symptomatically. Vikas Everett MD documented in this encounterMer[facility]10-14-2022 NoteHNO ID: [id number] Author: Catherine Crow MD Service: ? Author Type: Physician Type: Progress Notes Filed: 04/10/2022 2:38 PM Note Text: Catherine Crow MD [facility] [address] [place] [address] AMBULATORY TELEPHONE VISIT GERIATRIC MEDICINE FOLLOW UP History of Present Illness Mr. Melvin Riddle has consented to this telephone encounter. Mr. Melvin Riddle is 81 year old gentleman here for a follow up for memory loss. Persons Present: daughter He has been tolerating the Namenda well. Appetite, sleep and mood is good. He isback to work. ALLERGIES No Known Allergies No past medical history on file. PAST SURGICAL HISTORY Procedure Laterality Date COLONOSCOPY N/A 02/22/2018 Dr. Kaye, [facility] EGD N/A 02/22/2018 Dr. Kaye at [facility] HERNIA REPAIR HX N/A 02/[address] Kaye SKIN LESION Left Left pinna, removed. Social History Tobacco Use Smoking status: Former Packs/day: 0.75 Years: 25.00 Pack years: 18.75 Types: Cigarettes Smokeless tobacco: Former Types: Snuff Tobacco comments: quit 30 years ago Vaping Use Vaping Use: Never used Substance Use Topics Alcohol use: Yes Drug use: Never FAMILY HISTORY Problem Relation Age of Onset other (myocardial infarction) Mother 44 COPD Father other (pneumonia) Father 80 Current Outpatient Medications Medication Sig memantine (NAMENDA) 5 mg tablet Take 1 tablet by mouth twice daily. No current facility-administered medications for this visit. I have confirmed and edited as necessary, the chief complaint, medications, past medical, family and social histories. Physical Exam Not performed as this is a telephone encounter. Diagnostics: Glucose (mg/dL) Date Value 03/20/2022 89 01/03/2019 91 Potassium (mmol/L) Date Value 03/20/2022 4.9 01/03/2019 5.1 Sodium (mmol/L) Date Value 03/20/2022 139 01/03/2019 142 Chloride (mmol/L) Date Value 03/20/2022 103 01/03/2019 105 CO2 (mmol/L) Date Value 03/20/2022 26 01/03/2019 27 Creatinine (mg/dL) Date Value 03/20/2022 0.78 01/03/2019 0.91 BUN (mg/dL) Date Value 03/20/2022 12 01/03/2019 14 Anion Gap (mmol/L) Date Value 03/20/2022 10 01/03/2019 10 Calcium (mg/dL) Date Value 01/03/2019 9.4 Calcium, Total (mg/dL) Date Value 03/20/2022 9.6 Protein, Total (g/dL) Date Value 03/20/2022 6.9 01/03/2019 6.9 Albumin (g/dL) Date Value 03/20/2022 5.0 01/03/2019 4.3 Bilirubin, Total (mg/dL) Date Value 03/20/2022 0.6 01/03/2019 0.5 Alkaline Phosphatase (U/L) Date Value 03/20/2022 50 01/03/2019 44 AST (U/L) Date Value 03/20/2022 22 01/03/2019 16 ALT (U/L) Date Value 03/20/2022 20 01/03/2019 14 CBC: Hemoglobin (g/dL) Date Value 03/20/2022 14.9 Hematocrit (%) Date Value 03/20/2022 44.6 WBC (k/uL) Date Value 03/20/2022 6.38 Platelet Count (k/uL) Date Value 03/20/2022 211 TSH (mIU/L) Date Value 03/20/2022 0.314 Vitamin B12 (pg/mL) Date Value 03/20/2022 161 Vitamin D 25 Hydroxy (ng/mL) Date Value 03/20/2022 44.3 Plan Assessment and Plan ASSESSMENT/PLAN: 1. Mild late onset Alzh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, psychotic disturbance, mood disturbance, or anxiety (HCC) - ICD9: 331.0, 294.10, ICD10: G30.1, F02.A0 - stable and is tolerating Namenda well. Endorsed continuing to work. - Namenda refills available till May - encouraged to call for refills. - Will re-evaluate in 6 months. Catherine Corw MD Return in about 6 months (around 10/09/2022) for Memory testing, Follow up - [facility]. Thank you very much for the opportunity to participate in the care of your patient. Total time in direct patient contact = 5 min. Greater than 50% of the time was spent in counseling and/or coordination of care. CATHERINE CROW MD GERIATRIC MEDICINE [facility] Discussed the above with the patient using shared decision making. The patient is in agreement with the diagnostic and treatment plans. This note was partially generated using [employer] voice recognition system, and there may be some incorrect words, spellings, and punctuation that were not noted in checking the note before saving.[facility] 04-10-2022 History of Present illness Narrative* Catherine Crow MD - 04/10/2022 2:28 PM EDT Images from the original note were not included. Catherine Crow MD [facility] [address] [facility] [address] [facility] [place] [address] [place] [address] AMBULATORY TELEPHONE VISIT GERIATRIC MEDICINE FOLLOW UP History of Present Illness Mr. Melvin Riddle has consented to this telephone encounter. Mr. Melvin Riddle is 81 year old gentleman here for a follow up for memory loss. Persons Present: daughter He has been tolerating the Namenda well. Appetite, sleep and mood is good. He isback to work. ALLERGIES No Known Allergies No past medical history on file. PAST SURGICAL HISTORY Procedure Laterality Date COLONOSCOPY N/A 02/22/2018 Dr. Kaye, [facility] EGD N/A 02/22/2018 Dr. Kaye at [facility] HERNIA REPAIR HX N/A 02/[address] Kaye SKIN LESION Left Left pinna, removed. Social History Tobacco Use Smoking status: Former Packs/day: 0.75 Years: 25.00 Pack years: 18.75 Types: Cigarettes Smokeless tobacco: Former Types: Snuff Tobacco comments: quit 30 years ago Vaping Use Vaping Use: Never used Substance Use Topics Alcohol use: Yes Drug use: Never FAMILY HISTORY Problem Relation Age of Onset other (myocardial infarction) Mother 44 COPD Father other (pneumonia) Father 80 Current Outpatient Medications Medication Sig memantine (NAMENDA) 5 mg tablet Take 1 tablet by mouth twice daily. No current facility-administered medications for this visit. I have confirmed and edited as necessary, the chief complaint, medications, past medical, family and social histories. Physical Exam Not performed as this is a telephone encounter. Diagnostics: Glucose (mg/dL) Date Value 03/20/2022 89 01/03/2019 91 Potassium (mmol/L) Date Value 03/20/2022 4.9 01/03/2019 5.1 Sodium (mmol/L) Date Value 03/20/2022 139 01/03/2019 142 Chloride (mmol/L) Date Value 03/20/2022 103 01/03/2019 105 CO2 (mmol/L) Date Value 03/20/2022 26 01/03/2019 27 Creatinine (mg/dL) Date Value 03/20/2022 0.78 01/03/2019 0.91 BUN (mg/dL) Date Value 03/20/2022 12 01/03/2019 14 Anion Gap (mmol/L) Date Value 03/20/2022 10 01/03/2019 10 Calcium (mg/dL) Date Value 01/03/2019 9.4 Calcium, Total (mg/dL) Date Value 03/20/2022 9.6 Protein, Total (g/dL) Date Value 03/20/2022 6.9 01/03/2019 6.9 Albumin (g/dL) Date Value 03/20/2022 5.0 01/03/2019 4.3 Bilirubin, Total (mg/dL) Date Value 03/20/2022 0.6 01/03/2019 0.5 Alkaline Phosphatase (U/L) Date Value 03/20/2022 50 01/03/2019 44 AST (U/L) Date Value 03/20/2022 22 01/03/2019 16 ALT (U/L) Date Value 03/20/2022 20 01/03/2019 14 CBC: Hemoglobin (g/dL) Date Value 03/20/2022 14.9 Hematocrit (%) Date Value 03/20/2022 44.6 WBC (k/uL) Date Value 03/20/2022 6.38 Platelet Count (k/uL) Date Value 03/20/2022 211 TSH (mIU/L) Date Value 03/20/2022 0.314 Vitamin B12 (pg/mL) Date Value 03/20/2022 161 Vitamin D 25 Hydroxy (ng/mL) Date Value 03/20/2022 44.3 Plan Assessment and Plan ASSESSMENT/PLAN: 1. Mild late onset Alzh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, psychotic disturbance, mooddisturbance, or anxiety (HCC) - ICD9: 331.0, 294.10, ICD10: G30.1, F02.A0 - stable and is tolerating Namenda well. Endorsed continuing to work. - Namenda refills available till May - encouraged to call for refills. - Will re-evaluate in 6 months. Catherine Crow MD Return in about 6 months (around 10/09/2022) for Memory testing, Follow up - [facility]. Thank you very much for the opportunity to participate in the care of your patient. Total time in direct patient contact = 5 min. Greater than 50% of the time was spent in counseling and/or coordination of care. CATHERINE CROW MD GERIATRIC MEDICINE [facility] Discussed the above with the patient using shared decision making. The patient is in agreement with the diagnostic and treatment plans. This note was partially generated using [employer] voice recognition system, and there may be some incorrect words, spellings, and punctuation that were not noted in checking the note before saving. documented in this encounterMercy [facility]10-11-2022 Miscellaneous Notes* Telephone Encounter - Catherine Crow MD - 04/07/2022 2:59 PM EDT Yes it can. We will discuss at his next office visit. Catherine Crow MD * Telephone Encounter - Arelis Bee LPN - 04/07/2022 11:57 AM EDT Notified pt daughter, [place] of results. She inquired if the B12 deficiency would effect his memory? Pt is scheduled for a VV on Wednesday and this can be discussed at that visit, * Telephone Encounter - Arelis Bee LPN - 04/07/2022 11:55 AM EDT ----- Message from Catherine Crow MD sent at 04/03/2022 3:07 PM EDT ----- Blood work shows that vitamin B12 is low. Please start taking 1000 mcg of Vitamin B12 daily over the counter. All other blood work is normal. documented in this encounterMercy Health [facility]09-23-2022 NoteHNO ID: [id number] Author: Catherine Crow MD Service: ? Author Type: Physician Type: Progress Notes Filed: 04/20/2022 10:22 AM Note Text: Catherine Crow MD [facility] [address] [place] [address] COMPREHENSIVE GERIATRICS ASSESSMENT Patient presents with: Geriatric Assessment Back Pain There are no exam notes on file for this visit. History of Present Illness Mr. Melvin Riddle is a 81 year old year old gentleman referred for Comprehensive Geriatrics Assessment, as referred by Dr. Jacquelin Spaulding for evaluation of memory deficit. He is here with his daughter Jenna Ames. Has other siblings but she is the primary caregiver. Memory: patient reports he hasnt had any loss of memory. History from daughter- Has been going on for many years. His in 2019, and was c/o memory loss. Since last year, he has declined more steeply. 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 He needs a shai at work to help guide him if he needs. Does not take any medications. Has forgotten to turn off stove. Per his last PCP note, he also did get lost driving. Home: lives at home with his daughter Social Engagement: pt works at [employer] in the [employer] department Hobbies: walking the dogs. Likes to read. These are books he has already read. No new books or new magazines. Mood: describes mood as high, good Sleep: 8 hours Appetite:2-3 meals with snacks Exercise: walking Family hx: unknown Education: some college for engineering Work/Job related history: doesn't remember CHART REVIEW: I) What Matters Most/Goals for Care: Establish baseline for memory and improve quality of life. Healthcare proxy: Daughter, Jenna Ames. Code Status: Advance Care Planning: Have wishes or desires for end-of-life care been discussed? Yes Is a power of deputy prosecuting attorney in place for financial needs? Yes Is a power of deputy prosecuting attorney in place for health care decisions? Yes Is palliative or hospice care appropriate for the patient? No II) Mentation: Cognitive Testing Evaluation Introduction: Vitaliy Riddle 1940 Male This 81 year old Male was administered a battery of neurocognitive testing on 03/20/2022. Tests Administered: Trails A, Trails B, Digit Symbol Substitution, Stroop, Immediate Recognition, Delayed Recognition The combined test administration time was 26 minutes Test Results: Cognitive testing was provided via a battery of cognitive assessments. The pattern of test scores indicate that results are valid. A Clinical Report with further description of scores and results is also available. Overall: Patient tested in the 1st* percentile (standard score of 15*). Trails A: Patient tested in the --* percentile (scaled standard score of null). Trails B: Patient tested in the --* percentile (scaled standard score of null). Digit Symbol Substitution: Patient tested in the 1st percentile (scaled standard score of -99). Stroop: Patient tested in the --* percentile (scaled standard score of null). Immediate Recognition: Patient tested in the 18th percentile (scaled standard score of 86). Delayed Recognition: Patient tested in the 5th percentile (scaled standard score of 75). * These assessments were not scored because they were potentially invalid, or the patient failed to complete in the allotted time. 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 Mood Evaluation and Screening GDS: 1 CORI-7: 0 III) Mobility: Functional Evaluation: B-ADLs: (I=independent,A=assistance,D=dependent) ?Bathing: I, Dressing: I Toileting: I, Transferring:I, Continence: I, Feeding: I, (López Index): 6 I-ADLs: Ability to use phone: I, Shopping: A, Cooking: A, Housekeeping: A, Laundry: A, Transportation:D, Medications: D, Handle Finances: A. (Rid[place]and scale): 0 Mobility Aid: None Falls: .: Falls in the last 12 months: Positive: 1 fall. If + falls: Late Spring/Early Summer - in the garage was bending over trying to grab something after he was leaning over to greens picker the beer can and ended up passing out when he stood back up. He ended up having a laceration on his forehead and needed sutures. No LOC. (?Vasovagal?) Safety Assessment Checklist Questions (Yes/ No) 1. Is the patient still driving? Yes - no issues with familiar places. He do (more content not included)...[facility]09-[facility] History of Present illness Narrative* Catherine Crow MD - 03/20/2022 9:20 AM EDT Images from the original note were not included. Catherine Crow MD [facility] [address] [place] [address] COMPREHENSIVE GERIATRICS ASSESSMENT Patient presents with: Geriatric Assessment Back Pain There are no exam notes on file for this visit. History of Present Illness Mr. Melvin Riddle is a 81 year old year old gentleman referred for Comprehensive Geriatrics Assessment, as referred by Dr. Jacquelin Spaulding for evaluation of memory deficit. He is here with his daughter Jenna Ames. Has other siblings but she is the primary caregiver. Memory: patient reports he hasnt had any loss of memory. History from daughter- Has been going on for many years. His in 2019, and was c/o memory loss. Since last year, he has declined more steeply. 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 He needs a shai at work to help guide him if he needs. Does not take any medications. Has forgotten to turn off stove. Per his last PCP note, he also did get lost driving. Home: lives at home with his daughter Social Engagement: pt works at [employer] in the [employer] department Hobbies: walking the dogs. Likes to read. These are books he has already read. No new books or new magazines. Mood: describes mood as high, good Sleep: 8 hours Appetite:2-3 meals with snacks Exercise: walking Family hx: unknown Education: some college for engineering Work/Job related history: doesn't remember CHART REVIEW: I) What Matters Most/Goals for Care: Establish baseline for memory and improve quality of life. Healthcare proxy: Daughter, Jenna Ames. Code Status: Advance Care Planning: Have wishes or desires for end-of-life care been discussed? Yes Is a power of deputy prosecuting attorney in place for financial needs? Yes Is a power of deputy prosecuting attorney in place for health care decisions? Yes Is palliative or hospice care appropriate for the patient? No II) Mentation: Cognitive Testing Evaluation Introduction: Vitaliy Riddle 1940 Male This 81 year old Male was administered a battery of neurocognitive testing on 03/20/2022. Tests Administered: Trails A, Trails B, Digit Symbol Substitution, Stroop, Immediate Recognition, Delayed Recognition The combined test administration time was 26 minutes Test Results: Cognitive testing was provided via a battery of cognitive assessments. The pattern of test scores indicate that results are valid. A Clinical Report with further description of scores and results is also available. Overall: Patient tested in the 1st* percentile (standard score of 15*). Trails A: Patient tested in the --* percentile (scaled standard score of null). Trails B: Patient tested in the --* percentile (scaled standard score of null). Digit Symbol Substitution: Patient tested in the 1st percentile (scaled standard score of -99). Stroop: Patient tested in the --* percentile (scaled standard score of null). Immediate Recognition: Patient tested in the 18th percentile (scaled standard score of 86). Delayed Recognition: Patient tested in the 5th percentile (scaled standard score of 75). * These assessments were not scored because they were potentially invalid, or the patient failed tocomplete in the allotted time. Interpretation of Test Scores: Examination of individual component tests shows: Attention - Trails A: N/A impairment Mental Flexibility - Trails B: N/A impairment Executive Function - Digit Symbol Substitution: likely impairment Executive Function - Stroop: N/A impairment Memory - Immediate Recognition: unlikely impairment Memory - Delayed Recognition: possible impairment The patient s overall cognitive test performance was in the 1st percentile when compared to individuals of a similar age and gender, suggesting presence of moderate major neurocognitive impairment. Mood Evaluation and Screening GDS: 1 CORI-7: 0 III) Mobility: Functional Evaluation: B-ADLs: (I=independent,A=assistance,D=dependent) ?Bathing: I, Dressing: I Toileting: I, Transferring:I, Continence: I, Feeding: I, (López Index): 6 I-ADLs: Ability to use phone: I, Shopping: A, Cooking: A, Housekeeping: A, Laundry: A, Transportation:D, Medications: D, Handle Finances: A. (Levar scale): 0 Mobility Aid: None Falls: .: Falls in the last 12 months: Positive: 1 fall. If + falls: Late Spring/Early Summer - in the garage was bending over trying to grab something after he was leaning over to greens picker the beer can and ended up passing out when he stood back up. He ended up having a laceration on his forehead and needed sutures. No LOC. (?Vasovagal?) Safety Assessment Checklist Questions (Yes/ No) 1. Is the patient still driving? Yes - no issues with familiar places. He does not drive at night. 2. Is the patient taking medications as prescribed? No medications. 3. Are there concerns about safety in the home? No 4. Has the patient gotten lost in familiar places or wandered? No 5. Are firearms present in the home? 6. Has the patient experienced unsteadiness or sustained falls? Yes, as above 7. Does the patient live alone? No Frailty Screening (F.R.A.I.L Scale-Fried): Fatigue: NO Resistance (ability to climb a flight of stairs): YES Aerobics (ability to walk a block): YES Illnesses (presence of 5 illnesses): NO Loss of Weight (presence of > 5% in the past 6 months): NO Patient is Robust (Robust: 0, Pre-frail: 1-2, Frail: >=3) IV) Medication Review: - ANY HIGH RISK MEDICATIONS (STOPP CRITERIA): NO Mini - Nutritional Assessment Screening Has food intake declined over the past 3 months due to loss of appetite, digestive problems, chewing or swallowing difficulties? 2 = no decrease in food intake 2. Weight loss during the last 3 months 3 = no weight loss 3. Mobility 2 = goes out 4. Has suffered psychological stress or acute disease in the past 3 months? 2 = no 5.Neuropsychological problems 1 = mild dementia 6. Body Mass Index (BMI) (weight in kg) / (height in m) 2 3 = BMI 23 or greater Screening score = 13 (max. 14 points) 12-14 points: Normal nutritional status 8-11 points: At risk of malnutrition 0-7 points: Malnourished Geriatrics Review of Systems Incontinence - During the last 3 months did you leak urine? NO Constipation: NO Orthostatic Hypotension: NO Nutrition - Loss of weight (> 5% in the past 6 months): NO Vision Positive for vision impairment and wears glasses Follows with dental appliance fixer:YES Hearing - Hearing aid : Hearing impairment, no hearing aids ALLERGIES No Known Allergies History reviewed. No pertinent past medical history. PAST SURGICAL HISTORY Procedure Laterality Date COLONOSCOPY N/A 02/22/2018 Dr. Kaye, [facility] EGD N/A 02/22/2018 Dr. Kaye at [facility] HERNIA REPAIR HX N/A 02/[address] Kaye SKIN LESION Left Left pinna, removed. Social History Tobacco Use Smoking status: Former Packs/day: 0.75 Years: 25.00 Pack years: 18.75 Types: Cigarettes Smokeless tobacco: Former Types: Snuff Tobacco comments: quit 30 years ago Vaping Use Vaping Use: Never used Substance Use Topics Alcohol use: Yes Drug use: Never FAMILY HISTORY Problem Relation Age of Onset other (myocardial infarction) Mother 44 COPD Father other (pneumonia) Father 80 Current Outpatient Medications Medication Sig memantine (NAMENDA) 5 mg tablet Take 1 tablet by mouth twice daily. No current facility-administered medications for this visit. I have confirmed and edited as necessary, the chief complaint, medications, past medical, family and social histories. Physical Exam BP 137/59 Pulse 68 Temp 36.5 C (97.7 F) (Temporal) Wt 68.4 kg (150 lb 12.8 oz) SpO2 97% BMI 25.88 kg/m GEN: Pleasant, elderly male, in NAD Skin: No active skin lesions/rash ENT: moist mucous membranes - difficulty with hearing CV: Normal heart sounds, RRR, no m/r/g. No LE edema Resp: CTAB Abdomen/GI: soft, non tender, non distended, + BS M/S: No joint deformity, normal ROM Neuro/Psych: CN II-XII are grossly intact. Motor: normal strength and tone throughout Movements: Minimal / no postural tremor of both hands, no rest tremor, no cogwheeling or rigidity, no bradykinesia Gait and balance:? Failed get up and go. ? Diagnostics: Glucose (mg/dL) Date Value 03/20/2022 89 01/03/2019 91 Potassium (mmol/L) Date Value 03/20/2022 4.9 01/03/2019 5.1 Sodium (mmol/L) Date Value 03/20/2022 139 01/03/2019 142 Chloride (mmol/L) Date Value 03/20/2022 103 01/03/2019 105 CO2 (mmol/L) Date Value 03/20/2022 26 01/03/2019 27 Creatinine (mg/dL) Date Value 03/20/2022 0.78 01/03/2019 0.91 BUN (mg/dL) Date Value 03/20/2022 12 01/03/2019 14 Anion Gap (mmol/L) Date Value 03/20/2022 10 01/03/2019 10 Calcium (mg/dL) Date Value 01/03/2019 9.4 Calcium, Total (mg/dL) Date Value 03/20/2022 9.6 Protein, Total (g/dL) Date Value 03/20/2022 6.9 01/03/2019 6.9 Albumin (g/dL) Date Value 03/20/2022 5.0 01/03/2019 4.3 Bilirubin, Total (mg/dL) Date Value 03/20/2022 0.6 01/03/2019 0.5 Alkaline Phosphatase (U/L) Date Value 03/20/2022 50 01/03/2019 44 AST (U/L) Date Value 03/20/2022 22 01/03/2019 16 ALT (U/L) Date Value 03/20/2022 20 01/03/2019 14 CBC: Hemoglobin (g/dL) Date Value 03/20/2022 14.9 Hematocrit (%) Date Value 03/20/2022 44.6 WBC (k/uL) Date Value 03/20/2022 6.38 Platelet Count (k/uL) Date Value 03/20/2022 211 TSH (mIU/L) Date Value 03/20/2022 0.314 Vitamin B12 (pg/mL) Date Value 03/20/2022 161 Vitamin D 25 Hydroxy (ng/mL) Date Value 03/20/2022 44.3 Plan Assessment and Plan Mr. Melvin Riddle is a 81 year old year old gentleman referred for Comprehensive Geriatrics Assessment, as referred by Dr. Jacquelin Spaulding for evaluation of memory deficit. ? Mood and Mentation: The patient s overall cognitive test performance was in the 1st percentile when compared to individuals of a similar age and gender, suggesting presence of moderate major neurocognitive impairment. Will initiate Namenda 5 mg BID - discussed side effects. Recommend audiology testing for hearing screening. Also recommend that he continue to work as it gives him purpose and cognitive engagement. Discussed Blue Zones. Also recommended a tracker on his car since he drives to work. Advised serologies for potentially reversible etiologies for memory impairment: Vitamin B12, TFTs, Vitamin D Suggested Blue Zones lifestyle principles: I) Aerobic exercise II) Mediterranean diet III) Increased socialization IV) Sense of purpose/Ikigai V) Reading, crossword puzzles, word jumbles, Soduko, Lumosity Mobility: - Patient is Partially independent, with Good functional baseline. Would benefit from a structured routine exercise program . Medications: High Risk Geriatric Medications identified - Beer's / STOPP Criteria: none Return in about 3 weeks (around 04/10/2022) for Follow up - Telephone Visit - BIANCA. Thank you very much for the opportunity to participate in the care of your patient. Total time in direct patient contact = 60 min. Greater than 50% of the time was spent in counselingand/or coordination of care. CATHERINE CROW MD GERIATRIC MEDICINE [facility] Discussed the above with the patient using shared decision making. The patient is in agreement with the diagnostic and treatment plans. This note was partially generated using [employer] voice recognition system, and there may be some incorrect words, spellings, and punctuation that were not noted in checking the note before saving. [facility] History of Present illness Narrative* Jacquelin Spaulding MD - 02/27/2022 4:20 PM EDT Chief Complaint Patient presents with: Follow Up: Cognitive issues HPI Melvin Riddle is a 81 year old male who presents here today for cognitive changes. Here with Daughter, [place]. Pt states he feels that his memory is worse, he really doesn't want to talk about it. He does not cook for himself but he does cook for his 3 dogs, has forgotten to turn off the stove before. He did get lost driving to appointment today. He knows who the President is. He isn't always good with knowing what day it is. 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 His daughter says they do not let him work by himself. Complains of varicose veins; does not like how they look. Uses compression stockings in the winter. Past medical history, appointments, medications, allergies reviewed. Previous Medical History No past medical history on file. Previous Surgical History PAST SURGICAL HISTORY Procedure Laterality Date COLONOSCOPY N/A 02/22/2018 Dr. Kaye, [facility] EGD N/A 02/22/2018 Dr. Kaye at [facility] HERNIA REPAIR HX N/A 02/[address] Kaye SKIN LESION Left Left pinna, removed. Family History FAMILY HISTORY Problem Relation Age of Onset other (myocardial infarction) Mother 44 COPD Father other (pneumonia) Father 80 Patient Allergies ALLERGIES No Known Allergies Current Medications No current outpatient medications on file prior to visit. No current facility-administered medications on file prior to visit. Social History Social History Tobacco Use Smoking status: Former Packs/day: 0.75 Years: 25.00 Pack years: 18.75 Types: Cigarettes Smokeless tobacco: Former Types: Snuff Tobacco comments: quit 30 years ago Vaping Use Vaping Use: Never used Substance Use Topics Alcohol use: No EXAM: BP 120/70 Pulse 68 Resp 14 Wt 66.9 kg (147 lb 7.2 oz) SpO2 95% BMI 25.31 kg/m General Appearance: Well appearing, alert, in no acute distress, well-hydrated, well nourished.. Lungs: Lungs clear to auscultation. No wheezing, rhonchi, rales.. Heart: RRR without murmur, gallop, or rubs. No ectopy. Legs: moderate varicose veins, worse on right Health Maintenance List SPIROMETRY Never done SHINGRIX VACCINE(1 of 2) Never done COVID-19 VACCINE(3 - Booster for Moderna series) due on 02/18/2021 ADVANCE DIRECTIVE DISCUSSION Never done DIABETES SCREEN due on 01/03/2022 INFLUENZA(1) due on 02/26/2022 DTAP,TDAP,TD(2 - Td or Tdap) due on 09/09/2031 PNEUMOCOCCAL: 65+ Completed Data reviewed none ASSESSMENT/PLAN: 1. Memory deficit - ICD9: 780.93, ICD10: R41.3 Will refer to Geriatrics for evaluation for dementia - CONSULT TO GERIATRICS 2. Varicose veins Symptomatic treatment Refer to Vascular if he desire further evaluation Follow up prn I agree with the Chief Complaint, ROS, and Past Histories independently gathered by the clinical residential support specialist and the remaining scribed note accurately describes my personal service to the patient. Medical Decision Making: Problems: Moderate: New problem with uncertain prognosis Risk: Low: Low risk from testing/treatment Medical Decision Making Level: 3 - Low Jacquelin Spaulding MD The documentation for this note was completed by Chelo Graham Ma acting as scribe for Jacquelin Spaulding MD. February 27, 2022 4:12 PM. Chelo Graham Ma documented in this [facility]* Diagnosis Memory deficit- Primary Memory loss Varicose veins of both lower extremities, unspecified whether complicated [facility]* Diagnosis Mild late onset Alzh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, psychotic disturbance, mood disturbance, or anxiety (HCC)- Primary [facility]* Diagnosis Mild dementia- Primary Dementia, unspecified, without behavioral disturbance Memory deficit Memory loss Vitamin D deficiency Unspecified vitamin D deficiency Mild late onset Alzheimer's dementia, unspecified whether behavioral, psychotic, or mood disturbance or anxiety (HCC) [facility]* Diagnosis Rash- Primary Rash and other nonspecific skin eruption Acute cough [facility]* Diagnosis URI, acute- Primary Acute upper respiratory infections of unspecified site documented in this encounter [facility] note* Diagnosis COVID-19- Primary documented in this encounter [facility] note* Diagnosis Contact dermatitis, unspecified contact dermatitis type, unspecified trigger- Primary Mild dementia Dementia, unspecified, without behavioral disturbance Mild Alzheimer's dementia, unspecified timing of dementia onset, unspecified whether behavioral, psychotic, or mood disturbance or anxiety (HCC) documented in this encounter [facility] note* Diagnosis Mild dementia, unspecified dementia type, unspecified whether behavioral, psychotic, or mood disturbance or anxiety (HCC) Pulmonary emphysema, unspecified emphysema type (HCC) Vitamin B12 deficiency Other B-complex deficiencies Sleeping difficulties Sleep disturbance, unspecified Excessive drinking alcohol Alcohol abuse, unspecified [facility]* Diagnosis Mild dementia (HCC) Dementia, unspecified, without behavioral disturbance documented in this encounter [facility] noteNo assessment information availableWPremier [facility] Work Phone: Evaluation note* Diagnosis Mild dementia (HCC)- Primary Dementia, unspecified, without behavioral disturbance Vitamin B12 deficiency Other B-complex deficiencies Mild dementia without behavioral disturbance, psychotic disturbance, mood disturbance, or anxiety, unspecified dementia type (HCC) documented in this encounter [facility] note* Diagnosis Mild dementia (HCC) Dementia, unspecified, without behavioral disturbance Vitamin B12 deficiency Other B-complex deficiencies documented in this encounter [facility] note* Diagnosis Fall, initial encounter- Primary documented in this encounter [facility] note* Diagnosis Fall, sequela- Primary Mild dementia without behavioral disturbance, psychotic disturbance, mood disturbance, or anxiety, unspecified dementia type (HCC) documented in this encounter [facility] note* Diagnosis Encounter for Medicare annual wellness exam- Primary Routine general medical examination at a health care facility Mild dementia without behavioral disturbance, psychotic disturbance, mood disturbance, or anxiety, unspecified dementia type (HCC) Vitamin B12 deficiency Other B-complex deficiencies Regular alcohol consumption Other problems related to lifestyle Encounter for immunization Need for other specified prophylactic vaccination against single bacterial disease documented in this encounter [facility] note* Diagnosis Bilateral leg edema- Primary Edema Mild dementia without behavioral disturbance, psychotic disturbance, mood disturbance, or anxiety, unspecified dementia type (HCC) Episode of gagging Other diseases of pharynx, not elsewhere classified Esophageal dysphagia Dysphagia, pharyngoesophageal phase [facility]* Diagnosis Bilateral leg edema- Primary Edema Small vessel disease (HCC) Peripheral vascular disease, unspecified Episode of gagging Other diseases of pharynx, not elsewhere classified Esophageal dysphagia Dysphagia, pharyngoesophageal phase Mild dementia without behavioral disturbance, psychotic disturbance, mood disturbance, or anxiety, unspecified dementia type (HCC) documented [facility]* Diagnosis Esophageal dysphagia Dysphagia, pharyngoesophageal phase documented in this encounter [facility] note* Diagnosis Moderate dementia, unspecified dementia type, unspecified whether behavioral, psychotic, or mood disturbance or anxiety (HCC)- Primary Need for vaccination Need for prophylactic vaccination and inoculation against unspecified single disease Vitamin B12 deficiency Other B-complex deficiencies Bilateral leg edema Edema documented in this encounter [facility] for referral (narrative)* Diagnostic Procedure Only (Routine) - Authorized Specialty Diagnoses / Procedures Referred By Contac t Referred To Contact XR IMAGING Diagnoses Esophageal dysphagia Procedures XR ESOPHAGRAM RADIOLOGIC EXAM ESOPHAGUS SINGLE CONTRAST STUDY Jacquelin Spaulding MD [address] [place] [address] [place] [address] Referral ID Status Reason Start Date Expiration Date Visits Requested Visits Authorized [id number] Authorized Auto-Generat ed Referral 07/14/2024 08/13/2025 1 1 * Outpatient Procedure (Routine) - Authorized Specialty Diagnoses / Procedures Referred By Contac t Referred To Contact [facility] Diagnoses Bilateral leg edema Procedures PVR ANK PRESS BENNY VAS LAB NON-INVAS PHYSIOLOGIC STD EXTREMITY ART 2 LEVEL Jacquelin Spaulding MD [address] [place] [address] [facility] [address] [place] [address] Referral ID Status Reason Start Date Expiration Date Visits Requested Visits Authorized [id number] Authorized Auto-Generat ed Referral 07/14/2024 07/14/[address] [facility] for visit Narrative* Diagnostic Procedure Only (Routine) - Closed Specialty Diagnoses / Procedures Referred By Jesus crystal Referred To Contact XR IMAGING Diagnoses Esophageal dysphagia Procedures XR ESOPHAGRAM RADIOLOGIC EXAM ESOPHAGUS SINGLE CONTRAST STUDY Jacquelin Spaulding MD [address] [place] [address] Phone: tel: fax: [facility] [place] [address] Referral ID Status Reason Start Date Expiration Date V isits Requested Visits Authorized [id number] Closed Auto-Generate d Referral 07/14/2024 08/13/2025 1 1 [facility] Reason for Referral Specialty Diagnoses / Procedures Referred By Jesus crystal Referred To Contact Gerontology Diagnoses Memory deficit Procedures CONSULT TO GERIATRICS OFFICE/OUTPATIENT [facility] MDM 60-74 MINUTES Jacquelin Spaulding MD [address] [place] [address] Referral ID Status Reason Start Date Expiration Date Visits Requested Visits Authorized [id number] Pending Review PCP Requested Referral 02/27/2022 02/27/2023 1 1 Specialty Diagnoses / Procedures Referred By Jesus crystal Referred To Contact Dermatology Diagnoses Contact dermatitis, unspecified contact dermatitis type, unspecified trigger Procedures CONSULT TO DERMATOLOGY Marion Blair APRN.CNP [address] [place] [address] Referral ID Status Reason Start Date Expiration Date Visits Requested Visits Authorized [id number] Ref Not Required PCP Requested Referral 2 06/10/2023 1 1 Summary Purpose Family History No Family History Records Found Relationship Condition Age at Onset Recorded Date/T chay mother Myocardial infarction Unknown brother Myocardial infarction Unknown father Pulmonary emphysema Unknown Advance Directives No Advanced Directives Records Found Advance Directive Response Recorded Date/ Time Living Will No September 08, 2021 5:36am 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 No September 08 5:36am Health Concerns Infection Onset Date Last Indicated Resolved Time COVID-19 Confirmed 04/22/2022 04/22/2022 Chief Complaint and Reason for Visit Chief Complaint general illness Additional Source Comments Source Comments (unrecognize d section and content) In the event this informatio n is protected by the Federal Confidentiality of Alcohol and Drug Abuse Patient Records regulations: The Federal rules restrict any use of the information to criminally investigate or prosecute any alcohol or drug abuse patient.[facility] the event this information is protected by the Federal Confidentiality of Alcohol and Drug Abuse Patient Records regulations: The Federal rules restrict any use of the information to criminally investigate or prosecute any alcohol or drug abuse patient.[facility] HospitalIn the event this information is protected by the Federal Confidentiality of Alcohol and Drug Abuse Patient Records regulations: The Federal rules restrict any use of the information to criminally investigate or prosecute any alcohol or drug abuse patient.[facility] HospitalIn the event this information is protected by the Federal Confidentiality of Alcohol and Drug Abuse Patient Records regulations: The Federal rules restrict any use of the information to criminally investigate or prosecute any alcohol or drug abuse patient.[facility] HospitalIn the event this information is protected by the Federal Confidentiality of Alcohol and Drug Abuse Patient Records regulations: The Federal rules restrict any use of the information to criminally investigate or prosecute any alcohol or drug abuse patient.[facility] HospitalIn the event this information is protected by the Federal Confidentiality of Alcohol and Drug Abuse Patient Records regulations: The Federal rules restrict any use of the information to criminally investigate or prosecute any alcohol or drug abuse patient.[facility] HospitalIn the event this information is protected by the Federal Confidentiality of Alcohol and Drug Abuse Patient Records regulations: The Federal rules restrict any use of the information to criminally investigate or prosecute any alcohol or drug abuse patient.[facility] HospitalIn the event this information is protected by the Federal Confidentiality of Alcohol and Drug Abuse Patient Records regulations: The Federal rules restrict any use of the information to criminally investigate or prosecute any alcohol or drug abuse patient.[facility] HospitalIn the event this information is protected by the Federal Confidentiality of Alcohol and Drug Abuse Patient Records regulations: The Federal rules restrict any use of the information to criminally investigate or prosecute any alcohol or drug abuse patient.[facility] HospitalIn the event this information is protected by the Federal Confidentiality of Alcohol and Drug Abuse Patient Records regulations: The Federal rules restrict any use of the information to criminally investigate or prosecute any alcohol or drug abuse patient.[facility] HospitalIn the event this information is protected by the Federal Confidentiality of Alcohol and Drug Abuse Patient Records regulations: The Federal rules restrict any use of the information to criminally investigate or prosecute any alcohol or drug abuse patient.[facility] HospitalIn the event this information is protected by the Federal Confidentiality of Alcohol and Drug Abuse Patient Records regulations: The Federal rules restrict any use of the information to criminally investigate or prosecute any alcohol or drug abuse patient.[facility] HospitalIn the event this information is protected by the Federal Confidentiality of Alcohol and Drug Abuse Patient Records regulations: The Federal rules restrict any use of the information to criminally investigate or prosecute any alcohol or drug abuse patient.[facility] HospitalIn the event this information is protected by the Federal Confidentiality of Alcohol and Drug Abuse Patient Records regulations: The Federal rules restrict any use of the information to criminally investigate or prosecute any alcohol or drug abuse patient.[facility] HospitalIn the event this information is protected by the Federal Confidentiality of Alcohol and Drug Abuse Patient Records regulations: The Federal rules restrict any use of the information to criminally investigate or prosecute any alcohol or drug abuse patient.[facility] HospitalIn the event this information is protected by the Federal Confidentiality of Alcohol and Drug Abuse Patient Records regulations: The Federal rules restrict any use of the information to criminally investigate or prosecute any alcohol or drug abuse patient.[facility] HospitalIn the event this information is protected by the Federal Confidentiality of Alcohol and Drug Abuse Patient Records regulations: The Federal rules restrict any use of the information to criminally investigate or prosecute any alcohol or drug abuse patient.[facility] HospitalIn the event this information is protected by the Federal Confidentiality of Alcohol and Drug Abuse Patient Records regulations: The Federal rules restrict any use of the information to criminally investigate or prosecute any alcohol or drug abuse patient.[facility] HospitalIn the event this information is protected by the Federal Confidentiality of Alcohol and Drug Abuse Patient Records regulations: The Federal rules restrict any use of the information to criminally investigate or prosecute any alcohol or drug abuse patient.[facility] HospitalIn the event this information is protected by the Federal Confidentiality of Alcohol and Drug Abuse Patient Records regulations: The Federal rules restrict any use of the information to criminally investigate or prosecute any alcohol or drug abuse patient.[facility] HospitalIn the event this information is protected by the Federal Confidentiality of Alcohol and Drug Abuse Patient Records regulations: The Federal rules restrict any use of the information to criminally investigate or prosecute any alcohol or drug abuse patient.[facility] HospitalIn the event this information is protected by the Federal Confidentiality of Alcohol and Drug Abuse Patient Records regulations: The Federal rules restrict any use of the information to criminally investigate or prosecute any alcohol or drug abuse patient.[facility] HospitalIn the event this information is protected by the Federal Confidentiality of Alcohol and Drug Abuse Patient Records regulations: The Federal rules restrict any use of the information to criminally investigate or prosecute any alcohol or drug abuse patient.[facility] HospitalIn the event this information is protected by the Federal Confidentiality of Alcohol and Drug Abuse Patient Records regulations: The Federal rules restrict any use of the information to criminally investigate or prosecute any alcohol or drug abuse patient.[facility] HospitalIn the event this information is protected by the Federal Confidentiality of Alcohol and Drug Abuse Patient Records regulations: The Federal rules restrict any use of the information to criminally investigate or prosecute any alcohol or drug abuse patient.[facility] HospitalIn the event this information is protected by the Federal Confidentiality of Alcohol and Drug Abuse Patient Records regulations: The Federal rules restrict any use of the information to criminally investigate or prosecute any alcohol or drug abuse patient.[facility] HospitalIn the event this information is protected by the Federal Confidentiality of Alcohol and Drug Abuse Patient Records regulations: The Federal rules restrict any use of the information to criminally investigate or prosecute any alcohol or drug abuse patient.[facility] HospitalIn the event this information is protected by the Federal Confidentiality of Alcohol and Drug Abuse Patient Records regulations: The Federal rules restrict any use of the information to criminally investigate or prosecute any alcohol or drug abuse patient.[facility] Reason for Visit (unrecogniz ed section and content) Reason Comments Follow Up Cognitive issues Reason Comments Results Reason Comments Follow Up Memory Loss Reason Comments Geriatric Assessment Back Pain Specialty Diagnoses / Procedures Referred By Jesus crystal Referred To Contact Gerontology Diagnoses Memory deficit Procedures CONSULT TO GERIATRICS OFFICE/OUTPATIENT [facility] MDM 60-74 MINUTES Jacquelin Spaulding MD [address] [place] [address] Referral ID Status Reason Start Date Expiration Date Visits Requested Visits Authorized [id number] Pending Review PCP Requested Referral 02/27/2022 02/27/2023 1 1 Reason Comments Rash X 3 weeks on waistli ne Reason Comments Chest Congestion cough, sob, fatigue x 1day Reason Comments Acute Visit Covid + Reason Comments Follow Up rash at belt line Reason Comments Patient Request Reason Comments Physical Reason Onset Date Comments Refill Request 12/31/2022 Reason Comments medication issue Reason Onset Date Comments Population Health Navigation Outreach 10/25/2023 Gerardo [facility] CURRENT ROSTER workbenc - AWV, Care gaps, HCC gap closure - [place] [facility] Reason Comments 6 Month Exam Reason Onset Date Comments Population Health Navigation Outreach 01/17/2024 Gerardo [facility] Reason Onset Date Comments Refill Request 01/21/2024 Reason Comments Fall L upper arm skin tea r, bruising on bilateral arms x last night Reason Onset Date Comments ACM TRANG RN 01/31/2024 ER outreach f ollow up Reason Comments Hospital Follow Up Reason Comments Medicare Wellness Exam Reason Comments Appointment Reason Comments gagging issues Some trouble swallow ing Edema Bilateral feet and l egs Reason Comments F/U 1 month Reason Onset Date Comments Results 10/05/2024 Care Teams (unrecognized sec tion and content) Journalism Professor Relationship Specialty Start Date End Date Jacquelin Spaulding MD [address] [facility] [place] [address] PCP - General Family Practice 10/12/17 Journalism Professor Relationship Specialty Start Date End Date Jacquelin Spaulding MD [address] [facility] [place] [address] PCP - General Family Medicine 10/12/17 Journalism Professor Relationship Specialty Start Date End Date Jacquelin Spaulding MD [address] [facility] [place] [address] PCP - General Family Medicine 10/12/17 Journalism Professor Relationship Specialty Start Date End Date Jacquelin Spaulding MD [address] [facility] [place] [address] PCP - General Family Medicine 10/12/17 Journalism Professor Relationship Specialty Start Date End Date Jacquelin Spaulding MD [address] [facility] [place] [address] PCP - General Family Medicine 10/12/17 Journalism Professor Relationship Specialty Start Date End Date Jacquelin Spaulding MD [address] [facility] [place] [address] PCP - General Family Medicine 10/12/17 Journalism Professor Relationship Specialty Start Date End Date Jacquelin Spaulding MD [address] [facility] [place] [address] PCP - General Family Medicine 10/12/17 Journalism Professor Relationship Specialty Start Date End Date Jacquelin Spaulding MD [address] [facility] [address] PCP - General Family Medicine 10/12/17 Journalism Professor Relationship Specialty Start Date End Date Jacquelin Spaulding MD [address] [facility] [place] [address] PCP - General Family Medicine 10/12/17 Journalism Professor Relationship Specialty Start Date End Date Jacquelin Spaulding MD [address] [facility] [place] [address] PCP - General Family Medicine 10/12/17 Team Status: Active Member Role Status Dates Dr. Jacquelin Spaulding MD Family Provider Active Dr. Jacquelin Spaulding MD Primary Care Provider Active Team Status: Inactive Member Role Status Dates Dr. Jacquelin Spaulding MD Primary Care Provider Active Dr. Jonathan Bedoya DO Emergency Provider Active Journalism Professor Relationship Specialty Start Date End Date Jacquelin Spaulding MD [address] [facility] [place] [address] PCP - General Family Medicine 10/12/17 Journalism Professor Relationship Specialty Start Date End Date Jacquelin Spaulding MD [address] [facility] [place] [address] PCP - General Family Medicine 10/12/17 Journalism Professor Relationship Specialty Start Date End Date Jacquelin Spaulding MD [address] [facility] [place] [address] PCP - General Family Medicine 10/12/17 Journalism Professor Relationship Specialty Start Date End Date Jacquelin Spaulding MD [address] [facility] [place] [address] PCP - General Family Medicine 10/12/17 Journalism Professor Relationship Specialty Start Date End Date Jacquelin Spaulding MD [address] [facility] [place] [address] PCP - General Family Medicine 10/12/17 Journalism Professor Relationship Specialty Start Date End Date Jacquelin Spaulding MD [address] [facility] [place] [address] PCP - General Family Medicine 10/12/17 Journalism Professor Relationship Specialty Start Date End Date Jacquelin Spaulding MD [address] [facility] [address] PCP - General Family Medicine 10/12/17 Journalism Professor Relationship Specialty Start Date End Date Jacquelin Spaulding MD [address] [facility] [place] [address] PCP - General Family Medicine 10/12/17 Journalism Professor Relationship Specialty Start Date End Date Jacquelin Spaulding MD [address] [facility] [place] [address] PCP - General Family Medicine 10/12/17 Marion Blair APRN.INSTALLATION SUPERINTENDENT [address] [facility] [address] Press Setup Operator Family Medicine 06/04/24 Pedro Munoz APRN.INSTALLATION SUPERINTENDENT [address] [facility] [place] [address] Press Setup Operator Family Medicine 06/13/24 Journalism Professor Relationship Specialty Start Date End Date Jacquelin Spaulding MD [address] [facility] [place] [address] PCP - General Family Medicine 10/12/17 Marion Blair APRN.INSTALLATION SUPERINTENDENT [address] [facility] [place] [address] Press Setup Operator Family Medicine 06/04/24 Pedro Munoz APRN.INSTALLATION SUPERINTENDENT [address] [facility] [place] [address] Press Setup Operator Family Medicine 06/13/24 Journalism Professor Relationship Specialty Start Date End Date Jacquelin Spaulding MD [address] [facility] [place] [address] PCP - General Family Medicine 10/12/17 Marion Blair APRN.INSTALLATION SUPERINTENDENT [address] [facility] [place] [address] Press Setup Operator Family Medicine 06/04/24 Pedro Munoz APRN.INSTALLATION SUPERINTENDENT [address] [facility] [place] [address] Press Setup Operator Family Medicine 06/13/24 Journalism Professor Relationship Specialty Start Date End Date Jacquelin Spaulding MD [address] [facility] [place] [address] PCP - General Family Medicine 10/12/17 Marion Blair APRN.INSTALLATION SUPERINTENDENT [address] [facility] [place] [address] Press Setup Operator Family Medicine 06/04/24 Pedro Munoz APRN.INSTALLATION SUPERINTENDENT [address] [facility] [place] [address] Press Setup Operator Family Medicine 06/13/24 Journalism Professor Relationship Specialty Start Date End Date Jacquelin Spaulding MD [address] [facility] [place] [address] PCP - General Family Medicine 10/12/17 Marion Blair APRN.INSTALLATION SUPERINTENDENT [address] [place] [address] Press Setup Operator Family Medicine 06/04/24 Pedro Munoz APRN.INSTALLATION SUPERINTENDENT [address] [place] [address] Press Setup Operator Family [facility] 06/13/24 Journalism Professor Relationship Specialty Start Date End Date Jacquelin Spaulding MD [address] [place], [place] [address] [phone] PCP - General Family Medicine 10/12/17 Marion Blair, RODRIGO.INSTALLATION SUPERINTENDENT [address] [place] [address] Press Setup Operator Family Medicine 06/04/24 Pedro Munoz, RODRIGO.INSTALLATION SUPERINTENDENT [address] [place] [address] Press Setup Operator [facility] 06/13/24 Journalism Professor Relationship Specialty Start Date End Date Jacquelin Spaulding MD [address] [place] [address] PCP - General Family Medicine 10/12/17 Pedro Munoz, MANAGER OF PMO.INSTALLATION SUPERINTENDENT [address] [place] [address] Press Setup Operator [facility] 06/13/24 (unrecognized sect ion and content) No Status Records FoundNo Status Records FoundNo Status Records FoundNo Status Records Found INFORMATION SOURCE (unrecogn ized section and content) DATE CREATED AUTHOR 04/21/2022 [facility] DATE CREATED AUTHOR AUTHOR'S ORGANIZ ATION 07/17/2024 [facility] DATE CREATED AUTHOR AUTHOR'S ORGANIZ ATION 10/06/2024 [facility] DATE CREATED AUTHOR AUTHOR'S AZIZA SCHULTZ 11/10/2024 [facility] Goals (unrecognized section and content) Goals may be documented in a n alternate section FOR RECORDS PERTAINING TO PATIENTS WHO ARE OR HAVE BEEN ENROLLED IN A CHEMICAL DEPENDENCY/SUBSTANCEABUSE PROGRAM, SOME INFORMATION MAY BE OMITTED. This clinical summary was aggregated from multiple sources. Caution should be exercised in using it in the provision of clinical care. This summary normalizes information from multiple sources, and as a consequence, information in this document may materially change the coding, format and clinical context of patient data. In addition, data may be omitted in some cases. CLINICAL DECISIONS SHOULD BE BASED ON THE PRIMARY CLINICAL RECORDS. [facility] [employer] [facility]. provides no warranty or guarantee of the accuracy or completeness of information in this document.
--- OUTSIDE RECORDS SUMMARY | 2025-01-07 20:58 | XMS RPT_ITS | CCD ---
Author Organization [facility] Care Team Providers Care Director Hair Name Role Phone Jacquelin Spaulding MD Primary Care Provider CATHERINE CROW Attending Unavailable CATHERINE CROW Referring Unavailable JACQUELIN SPAULDING Primary Care Unavailable CATHERINE CROW Referring Unavailable JACQUELIN SPAULDING Primary Care Unavailable CATHERINE CROW Attending Unavailable JACQUELIN SPAULDING Referring Unavailable JACQUELIN SPAULDING Primary Care Unavailable Jacquelin Spaulding MD Primary Care Provider Jacquelin Spaulding MD Primary Care Provider Jacquelin Spaulding MD Primary Care Provider Rossy RUBY ON RAILS CONSULTANTMarion ERNST Unavailable Alexander RUBY ON RAILS CONSULTANTPedro MCCALL Unavailable Helder Aiken Attending Unavailable Jacquelin Spaulding Primary Care Unavailable Jacquelin Spaulding Primary Care Unavailable Jacquelin Spaulding Attending Unavailable JACQUELIN SPAULDING Referring Unavailable JACQUELIN SPAULDING Primary Care Unavailable JACQUELIN SPAULDING Primary Care Unavailable JACQUELIN [...] on above: Take 1 capsule by mo [facility] branson three times daily as needed for cough for up to 10 days. furosemide 20 mg oral tablet (7 sources) Loop Diuretic Start: 07-14-2024 End: 08-21-2024 take 1 tablet by mouth once daily furosemide (LASIX) 20 mg tablet Indications: Bilateral leg edema Take 1 tablet by mouth once daily. 90 tablet 1 08/21/2024 Active memantine hydrochloride 5 mg oral tablet (20 sources) U-ubkoas-U-asparta te Receptor Antagonist Start: 05-22-2023 take 5 [...] 23, 2018 11:00pm March 26, 2018 11:09pm [id number] 200 actuat albuterol 0.09 mg/actuat metered dose [...] Test Name Value Interpretation Reference Range Facility [facility] 11-09-2024 CNOV Office Visit (FAMPWS) MELVIN RIDDLE ([id number]) 1940 M Date Time Provider Department 11/09/24 1:20 PM [facility] During your visit today, we recorded the following information about you: Pulse Respiration Blood pressure Weight 80/minute 14/minute 128/74 78.6 kg Jacquelin Spaulding MD 11/09/2024 4:03 PM Signed Chief Complaint Patient presents with: 6 Month Exam HPI Melvin Riddle is a 84 year old male who presents here today for 6 month follow up. Here with his daughter who is his forest pathologist. He has another daughter who has a [...] Laterality Date COLONOSCOPY N/A 02/22/2018 Dr. Kaye, [facility] EGD N/A 02/22/2018 Dr. Kaye at [facility] HERNIA REPAIR HX N/A 02/2018 hernia [...] R60.0 Contr (more content not included)... Normal [facility] XR ESOPHAGRAMon 10-05-2024 XR ESOPHAGRAM * [...] aspiration was seen. IMPRESSION: Small hiatal hernia. Charter Bus Driver: DEWAYNE Transcribe Date/Time: Oct 05 2024 10:03A Dictated by : BELKIS MARCANO MD This examination was interpreted and the report reviewed and electronically signed by: BELKIS MARCANO MD on Oct 05 2024 10:08AM EST [id number] Normal [facility] XR Esophagus Views Rhianna Evans 10-05-2024 IMPRESSION: Small hiatal hernia. [employer] Bus Driver: PSCLonny Transcribe Date/Time: Oct 05 2024 10:03A Dictated by : BELKIS MARCANO MD This examination was interpreted and the report reviewed and electronically signed by: BELKIS MARCANO MD on Oct 05 2024 10:08AM EST [facility] * * *Final Report* * * [...] of the duodenum. No aspiration was seen. [facility] Provider, [facility] - 10/05/2024 * * *Final Report* * [...] was seen. IMPRESSION IMPRESSION: Small hiatal hernia. [employer] Bus Driver: DEWAYNE Transcribe Date/Time: Oct 05 2024 10:03A Dictated by : BELKIS MARCANO MD This examination was interpreted and the report reviewed and electronically signed by: BELKIS MARCANO MD on Oct 05 2024 10:08AM EST [facility] Radiology Study observation (narrative) Darnell freeman [facility] XR Esophagus Views W david crystal POOrdered By: [facility] Provider on 10-05-2024 [facility] CNOVon 08-21-2024 CNOV Office Visit (FAMPWS) MELVIN RIDDLE ([id number]) 1940 M Date Time Provider Department 08/21/24 1:40 PM [facility] During your visit today, we recorded [...] Left side normal. Daughter has questions about group home use of Lasix and what are possible issues with group home use of Lasix if any. Noted darker colored urine, drinking less beer at previous visit. CMP was ordered. Past medical history, appointments, medications, allergies reviewed. Previous Medical History No past medical history on file. Previous Surgical History PAST SURGICAL HISTORY Procedure Laterality Date COLONOSCOPY N/A 02/22/2018 Dr. Kaye, [facility] EGD N/A 02/22/2018 Dr. Kaye at [facility] HERNIA REPAIR HX N/A 02/2018 hernia [...] as sched (more content not included)... Normal [facility] PVR LEG BENNY VAS LABon 2024 PVR LEG BENNY VAS LAB Non-Invasive Vascular Laboratory [facility] Lower Extremity Arterial Physiology Study Bilateral/Complete Date [...] Normal at rest. Technologist: Katiana Woody RVT, MARLONHI Ordering physician: JACQUELIN SPAULDING Interpreting physician: KEILA Moreno DO Final CC [facility] Image : [id number] See Link below for Image Normal [facility] Massimo 08-16-2024 CNPN Telephone (4CQ) MELVIN RIDDLE ([id number]) 1940 M Date Time Provider Department 08/16/24 [...] Status:Closed by NED BARRY on 08/16/24 Normal [facility] Comprehensive metabolic 2000 panelon 08-16-2024 Albumin [Mass/Vol] 4.6 g/dL Normal 3.9-4.9 [facility] Comment on above: Order Comment: Speci men Type: BLOOD SPECIMENOrdering Facility: [facility] Address: [address] [place] [address] Performed By: #### 2 4323-8 ####[facility] LABCLIA [id number] [place] [address] [place] ALP [Catalytic activity/Vol] 77 U/L Normal 38-113 [facility] Comment on above: Order Comment: Speci men Type: BLOOD SPECIMENOrdering Facility: [facility] Address: [address] [place] [address] Performed By: #### 2 4323-8 ####[facility] LABCLIA [id number] [place] [address] [place] ALT [Catalytic activity/Vol] 24 U/L Normal 10-54 [facility] Comment on above: Order Comment: Speci men Type: BLOOD SPECIMENOrdering Facility: [facility] Address: [address] [place] [address] Performed By: #### 2 4323-8 ####[facility] LABCLIA [id number] [place] [address] [place] Anion gap [Moles/Vol] 12 mmol/L Normal 8-15 [facility] Comment on above: Order Comment: Speci men Type: BLOOD SPECIMENOrdering Facility: [facility] Address: [address] [place] [address] Performed By: #### 2 4323-8 ####[facility] LABCLIA [id number] [place] [address] [place] AST [Catalytic activity/Vol] 17 U/L Normal 14-40 [facility] Comment on above: Order Comment: Speci men Type: BLOOD SPECIMENOrdering Facility: [facility] Address: [address] [id number] Performed By: #### 2 4323-8 ####[facility] LABCLIA [id number] [place] [address] [place] Bilirubin [Mass/Vol] 0.5 mg/dL Normal 0.2-1.3 [facility] Comment on above: Order Comment: Speci men Type: BLOOD SPECIMENOrdering Facility: [facility] Address: [address] [place] [address] Performed By: #### 2 4323-8 ####[facility] LABCLIA [id number] [place] [address] [place] Calcium [Mass/Vol] 9.4 mg/dL Normal 8.5-10.2 [facility] Comment on above: Order Comment: Speci men Type: BLOOD SPECIMENOrdering Facility: [facility] Address: [address] [place] [address] Performed By: #### 2 4323-8 ####[facility] LABCLIA [id number] [place] [address] [place] Chloride [Moles/Vol] 103 mmol/L Normal 98-107 [facility] Comment on above: Order Comment: Speci men Type: BLOOD SPECIMENOrdering Facility: [facility] Address: [address] [place] [address] Performed By: #### 2 4323-8 ####[facility] LABCLIA [id number] [place] [address] [place] CO2 [Moles/Vol] 27 mmol/L Normal 22-30 [facility] Comment on above: Order Comment: Speci men Type: BLOOD SPECIMENOrdering Facility: [facility] Address: [address] [place], [place] [id number] Performed By: #### 2 4323-8 ####[facility] LABCLIA [id number] [place] [address] [place] Creatinine [Mass/Vol] 1.00 mg/dL Normal 0.73-1.22 [facility] Comment on above: Order Comment: Paula aceves Type: BLOOD SPECIMENOrdering Facility: [facility] Address: [address] [place] [address] Performed By: #### 2 4323-8 ####[facility] LABCLIA [id number] [place] [address] [place] Creatinine and Glomerular filtration rate.predicted panel (S/P/Bld) 74 mL/min/1.73m??? Normal >=60 [facility] Comment on above: Order Comment: Paula aceves Type: BLOOD SPECIMENOrdering Facility: [facility] Address: [address] [place] [address] Result Comment: Lisa mated Glomerular Filtration Rate [...] actual GFR. Performed By: #### 2 4323-8 ####[facility] LABCLIA [id number] [place] [address] [place] Glucose [Mass/Vol] 118 mg/dL High 74-99 [facility] Comment on above: Order Comment: Paula aceves Type: BLOOD SPECIMENOrdering Facility: [facility] Address: [address] [place] [address] Result Comment: The [place] Diabetes Association (ADA) provides guidance for cutoff [...] Standards of Medical Care in Diabetes 2016, [place] [employer]. Diabetes Care. 2016.39(Suppl 1). Performed By: #### 2 4323-8 ####[facility] LABCLIA [id number] [address] [address] [place] Potassium [Moles/Vol] 4.1 mmol/L Normal 3.7-5.1 [facility] Comment on above: Order Comment: Speci men Type: BLOOD SPECIMENOrdering Facility: [facility] Address: [address] [place] [address] Performed By: #### 2 4323-8 ####[facility] LABIA [id number] [place] [address] [place] Protein [Mass/Vol] 7.2 g/dL Normal 6.3-8.0 [facility] Comment on above: Order Comment: Speci men Type: BLOOD SPECIMENOrdering Facility: [facility] Address: [address] [place] [address] Performed By: #### 2 4323-8 ####[facility] LABIA [id number] [place] [address] [place] Sodium [Moles/Vol] 142 mmol/L Normal 136-144 [facility] Comment on above: Order Comment: Speci men Type: BLOOD SPECIMENOrdering Facility: [facility] Address: [address] [place] [address] Performed By: #### 2 4323-8 ####[facility] LABCLIA [id number] [place] [address] [place] Urea nitrogen [Mass/Vol] 19 mg/dL Normal 9-24 [facility] Comment on above: Order Comment: Speci men Type: BLOOD SPECIMENOrdering Facility: [facility] Address: [address] [id number] Performed By: #### 2 4323-8 ####[facility] LABCLIA [id number] [place] [address] [address] [place] CNOVon 07-14-2024 CNOV Office Visit (FAMPWS) MELVIN RIDDLE ([id number]) 1940 M Date Time Provider Department 07/14/24 1:20 PM [facility] During your visit today, we recorded [...] year of ending up in [place] due to food stuck in esophagus. Passed spontaneously. No EGD done.. Edema: Bilateral lower legs and feet that has been going on for a long time. Has been seen by coffee sampler who suggested circulation test. Does not improve [...] Laterality Date COLONOSCOPY N/A 02/22/2018 Dr. Kaye, [facility] EGD N/A 02/22/2018 Dr. Kaye at [facility] HERNIA REPAIR HX N/A 02/2018 hernia [...] Past Histories independently gathered by the clinical technical support consultant and the remaining scribed note accurately describes [...] for Visit: (more content not included)... [facility] Tele[facility] (FAMPWS) MELVIN RIDDLE ([id number]) 1940 M Date Time Provider Department 07/10/24 [facility] During your visit today, we recorded [...] Encounter Status:Closed by ADRIENNE DUVALL on 07/10/24 [facility] Parris 05-08-2024 CNOV Office Visit (FAMPWS) VENKATESHMELVIN Manzano ([id number]) 1940 M Date Time Provider Department 05/08/24 [...] recommended use, (more content not included)... Normal [facility] CNOVon 02-03-2024 CNOV Office Visit (FAMPWS) MEVLIN RIDDLE ([id number]) 1940 M Date Time Provider Department 02/03/24 10:00 AM [facility] During your visit today, we recorded the following information about you: Pulse Respiration Blood pressure Weight 76/minute 18/minute 118/78 75.1 kg Jacquelin Spaulding MD 02/03/2024 10:44 AM Signed Chief Complaint Patient presents with: Hospital Follow Up HPI Melvin Riddle is a 83 year old male who presents here today for an ED follow up. Pt was seen at [facility] ED on 01/28/24 due to a [...] feels the area is healing up nicely. [facility] ED: HPI - Fall History of [...] medications, allerg (more content not included)... Normal [facility] 12 Lead EKGon 01-28-2024 12 Lead EKG [facility] Cardiovascular Services [address] [place] [address] 12 Lead EKG 01/28/24 1127 MR#: [id number] Acct: [id number] Name: MELVIN RIDDLE Debby Rep #: [id number] : 1940 83 From: Olivier De Jesus [...] normal ECG Confirmed by Olivier De Jesus ([id number]), editor in chief newspaper HANNAH PANDA ([id number]) on 01/31/2024 2:02:30 PM Referred By: BERNADINE Confirmed By:Olivier De Jesus 01/31/24 1402 Date Olivier De Jesus MD CC: Dr. Jacquelin Spaulding MD; Dr. Helder Aiken DO Signed Normal [facility] Brain/Head without Contrasto n 01-28-2024 Brain/Head without Contrast [facility] Imaging Services [address] [place] [address] Brain/Head without Contrast MR#: [id number] Acct: [id number] Name: MELVIN RIDDLE Debby Rep #: [id number] : 1940 M 83 From: Pepe duffy MD PCP: Dr. Jacquelin Spaulding MD Status: REG ER Study: Brain/Head without Contrast Date of Exam: 08/21 Exam# [id number] Ordering Dr: Helder Aiken DO [id number] STUDY: CT BRAIN WITHOUT CONTRAST REASON FOR [...] Jacquelin Spaulding MD; Dr. Helder Aiken DO Charter Bus Driver: Signed Normal [facility] CBC W/Diff, Automatedon 08-0 2-2023 Absolute Lymph 1.31 X10 3/uL Normal 0.83-4.51 [facility] Comment on above: Performed By: #### L 100.0100, L501.4020, L500.4050 #### [facility] [address] [place], [address] Absolute Neut 5.5 X10 3/uL Normal 2.0-7.7 [facility] Comment on above: Performed By: #### L 100.0100, L501.4020, L500.4050 #### [facility] [address] [place], [address] Basophils/100 WBC (Bld) 0.3 % Normal 0-1 [facility] Comment on above: Performed By: #### L 100.0100, L501.4020, L500.4050 #### [facility] [address] [place], [address] Eosinophils/100 WBC (Bld) 0.8 % Normal 0-5 [facility] Comment on above: Performed By: #### L 100.0100, L501.4020, L500.4050 #### [facility] [address] [place], [address] Erythrocyte distribution width (RBC) [Ratio] 12.9 % Normal 11.6-14.6 [facility] Comment on above: Performed By: #### L 100.0100, L501.4020, L500.4050 #### [facility] [address] [place], [address] Hematocrit (Bld) [Volume fraction] 42.9 % Normal 40-54 [facility] Comment on above: Performed By: #### L 100.0100, L501.4020, L500.4050 #### [facility] [address] [place], [address] Hemoglobin (Bld) [Mass/Vol] 14.6 g/dL Normal 13.0-16.5 [facility] Comment on above: Performed By: #### L 100.0100, L501.4020, L500.4050 #### [facility] [address] [place], [address] IG% 0.400 Normal 0.0-0.9 [facility] Comment on above: Result Comment: IG% - Immature Granulocytes (promyelocytes, myelocytes and metamyelocytes) > 1% indicates that a LEFT SHIFT is Present. Performed By: #### L 100.0100, L501.4020, L500.4050 #### [facility] [address] [place], [address] Lymphocytes/100 WBC (Bld) 17.7 % Low 19-41 [facility] Comment on above: Performed By: #### L 100.0100, L501.4020, L500.4050 #### [facility] [address] [place], [address] MCH (RBC) [Entitic mass] 31.8 pg Normal 27.0-32.0 [facility] Comment on above: Performed By: #### L 100.0100, L501.4020, L500.4050 #### [facility] [address] [place], [address] MCHC (RBC) [Mass/Vol] 34.0 g/dL Normal 32-36 [facility] Comment on above: Performed By: #### L 100.0100, L501.4020, L500.4050 #### [facility] [address] [place], [address] MCV (RBC) [Entitic vol] 93.5 fL Normal 80-94 [facility] Comment on above: Performed By: #### L 100.0100, L501.4020, L500.4050 #### [facility] [address] [place], [address] Monocytes/100 WBC (Bld) 6.9 % Normal 0-10 [facility] Comment on above: Performed By: #### L 100.0100, L501.4020, L500.4050 #### [facility] [address] [place], [address] Neutrophils/100 WBC (Bld) 73.9 % High 47-70 [facility] Comment on above: Performed By: #### L 100.0100, L501.4020, L500.4050 #### [facility] [address] [place], [address] Nucleated RBC (Bld) [#/Vol] 0 10*3/uL Normal 0-5 [facility] Comment on above: Performed By: #### L 100.0100, L501.4020, L500.4050 #### [facility] [address] [place], [address] Platelet mean volume (Bld) [Entitic vol] 10.3 fL Normal 6.2-12.0 [facility] Comment on above: Performed By: #### L 100.0100, L501.4020, L500.4050 #### [facility] [address] [place], [address] Platelets (Bld) [#/Vol] 202 10*3/uL Normal 150-450 [facility] Comment on above: Performed By: #### L 100.0100, L501.4020, L500.4050 #### [facility] [address] [place], [address] RBC (Bld) [#/Vol] 4.59 10*6/uL Low 4.6-6.2 [facility] Comment on above: Performed By: #### L 100.0100, L501.4020, L500.4050 #### [facility] [address] [place], [address] RDW SD 43.8 fl Normal 35.1-43.9 [facility] Comment on above: Performed By: #### L 100.0100, L501.4020, L500.4050 #### [facility] [address] [place], [address] WBC (Bld) [#/Vol] 7.4 10*3/uL Normal 4.4-11.0 [facility] Comment on above: Performed By: #### L 100.0100, L501.4020, L500.4050 #### [facility] [address] [place], [address] CNOVon 01-28-2024 CNOV Office Visit (UCTR) MELVIN RIDDLE ([id number]) 1940 M Date Time Provider Department 01/28/24 9:45 AM GABRIELLE MONTEZ [facility] During your visit today, we recorded the following information about you: Temperature Pulse Respiration Blood pressure 97.4 degrees 72/minute 18/minute 132/77 Gabrielle Montez APRN.IT HELP DESK ANALYST 01/28/2024 10:07 AM Signed 83 year old [...] Status:Closed by GABRIELLE MONTEZ on 01/28/24 Normal [facility] Chest 1 View (Portable)on Chest 1 View (Portable) [facility] Imaging Services [address] [place] [id number] Chest 1 View (Portable) MR#: [id number] Acct: [id number] Name: MELVIN RIDDLE Rep #: [id number] : 1940 M 83 From: Pepe duffy MD PCP: Dr. Jacquelin Spaulding MD Status: REG ER Study: Chest 1 View (Portable) Date of Exam: 01/28/24 Exam# [id number] Ordering Dr: Helder Aiken DO [id number] STUDY: X-RAY CHEST REASON FOR EXAM: Male, [...] Jacquelin Spaulding MD; Dr. Helder Aiken DO Charter Bus Driver: Signed Normal [facility] Comprehensive Metabolic Prof ilon 01-28-2024 Albumin [Mass/Vol] 3.6 g/dL Normal 3.2-5.0 [facility] Comment on above: Order Comment: 'TROP ' Serial specimen #1, #2 or #3: 1 Performed By: #### L 100.0100, L501.4020, L500.4050 #### [facility] [address] [place], [address] Albumin/Globulin [Mass ratio] 1.3 {ratio} Normal 0.9-2.4 [facility] Comment on above: Order Comment: 'TROP ' Serial specimen #1, #2 or #3: 1 Performed By: #### L 100.0100, L501.4020, L500.4050 #### [facility] [address] [place], [address] ALK P 54 U/L Normal 45-117 [facility] Comment on above: Order Comment: 'TROP ' Serial specimen #1, #2 or #3: 1 Performed By: #### L 100.0100, L501.4020, L500.4050 #### [facility] [address] [place], [address] ALT [Catalytic activity/Vol] 24 U/L Normal 16-61 [facility] Comment on above: Order Comment: 'TROP ' Serial specimen #1, #2 or #3: 1 Performed By: #### L 100.0100, L501.4020, L500.4050 #### [facility] [address] [place], [address] AST [Catalytic activity/Vol] 17 U/L Normal 15-37 [facility] Comment on above: Order Comment: 'TROP ' Serial specimen #1, #2 or #3: 1 Performed By: #### L 100.0100, L501.4020, L500.4050 #### [facility] [address] [place], [address] Bilirubin [Mass/Vol] 0.70 mg/dL Normal 0.20-1.00 [facility] Comment on above: Order Comment: 'TROP ' Serial specimen #1, #2 or #3: 1 Result Comment: For patients on eltrombopag therapy, use of Dimension [place] TBIL is not recommended. Performed By: #### L 100.0100, L501.4020, L500.4050 #### [facility] [address] [place], [address] BUN/CRE 10.6 RATIO Normal 10-20 [facility] Comment on above: Order Comment: 'TROP ' Serial specimen #1, #2 or #3: 1 Performed By: #### L 100.0100, L501.4020, L500.4050 #### [facility] [address] [place], [address] CA,Total 8.7 mg/dL Normal 8.5-10.1 [facility] Comment on above: Order Comment: 'TROP ' Serial specimen #1, #2 or #3: 1 Performed By: #### L 100.0100, L501.4020, L500.4050 #### [facility] [address] [place], [address] Chloride [Moles/Vol] 110 mmol/L High 98-107 [facility] Comment on above: Order Comment: 'TROP ' Serial specimen #1, #2 or #3: 1 Performed By: #### L 100.0100, L501.4020, L500.4050 #### [facility] [address] [place], [address] CO2 [Moles/Vol] 24.0 mmol/L Normal 21.0-32.0 [facility] Comment on above: Order Comment: 'TROP ' Serial specimen #1, #2 or #3: 1 Performed By: #### L 100.0100, L501.4020, L500.4050 #### [facility] [address] [place], [address] Creatinine [Mass/Vol] 0.76 mg/dL Normal 0.70-1.30 [facility] Comment on above: Order Comment: 'TROP ' Serial specimen #1, #2 or #3: 1 Result Comment: The validity of the calculated GFR GFRAA in patients over 70 years has not been determined. Clinical correlation is essential. Performed By: #### L 100.0100, L501.4020, L500.4050 #### [facility] [address] [place], [address] EST GFR - AA 126 mL/min Normal >60 [facility] Comment on above: Order Comment: 'TROP ' Serial specimen #1, #2 or #3: 1 Result Comment: Afri can [place] GFR Calc Performed By: #### L 100.0100, L501.4020, L500.4050 #### [facility] [address] [place], [address] GAP 4 Low 5-15 [facility] Comment on above: Order Comment: 'TROP ' Serial specimen #1, #2 or #3: 1 Performed By: #### L 100.0100, L501.4020, L500.4050 #### [facility] [address] [place], [address] GFR/1.73 sq M.predicted among non-blacks MDRD (S/P/Bld) [Vol rate/Area] 104 mL/min/{1.73_m2} Normal >60 [facility] Comment on above: Order Comment: 'TROP ' Serial specimen #1, #2 or #3: 1 Result Comment: Non- GFR Calc Performed By: #### L 100.0100, L501.4020, L500.4050 #### [facility] [address] [place], [address] Globulin (S) [Mass/Vol] 2.8 g/dL Normal 2.2-4.2 [facility] Comment on above: Order Comment: 'TROP ' Serial specimen #1, #2 or #3: 1 Performed By: #### L 100.0100, L501.4020, L500.4050 #### [facility] [address] [place], [address] Glucose [Mass/Vol] 103 mg/dL Normal 74-106 [facility] Comment on above: Order Comment: 'TROP ' Serial specimen #1, #2 or #3: 1 Result Comment: Fast ing Glucose result from 100 to 125 mg/dL suggests IMPAIRED HOMEOSTASIS per A.D.A. criteria. Performed By: #### L 100.0100, L501.4020, L500.4050 #### [facility] [address] [place], [address] Potassium [Moles/Vol] 4.4 mmol/L Normal 3.5-5.1 [facility] Comment on above: Order Comment: 'TROP ' Serial specimen #1, #2 or #3: 1 Performed By: #### L 100.0100, L501.4020, L500.4050 #### [facility] [address] [place], [address] Sodium [Moles/Vol] 138 mmol/L Normal 136-145 [facility] Comment on above: Order Comment: 'TROP ' Serial specimen #1, #2 or #3: 1 Performed By: #### L 100.0100, L501.4020, L500.4050 #### [facility] [address] [place], [address] T PROT 6.4 g/dL Normal 6.4-8.2 [facility] Comment on above: Order Comment: 'TROP ' Serial specimen #1, #2 or #3: 1 Performed By: #### L 100.0100, L501.4020, L500.4050 #### [facility] [address] [place], [address] Urea nitrogen [Mass/Vol] 8 mg/dL Normal 7-18 [facility] Comment on above: Order Comment: 'TROP ' Serial specimen #1, #2 or #3: 1 Performed By: #### L 100.0100, L501.4020, L500.4050 #### [facility] [address] [place], [address] Emergency Department Summary on 01-28-2024 Emergency Department Summary [facility] Medical Records Department [address] [place] [address] Emergency Department Summary 01/28/24 MR#: [id number] Acct: [id number] Name: MELVIN RIDDLE Rep #: [id number] : 1940 83 From: Helder Aiken DO [...] obtained from others: Patient's daughter Consults: none [facility] Narrative: Patient was initially hemodynamically [...] left u (more content not included)... Normal [facility] HIP, UNI W/ Pelvis 2-3 Views on 01-28-2024 HIP, UNI W/ Pelvis 2-3 Views [facility] Imaging Services [address] [place], [place] [address] HIP, UNI W/ Pelvis 2-3 Views MR#: [id number] Acct: [id number] Name: MELVIN RIDDLE Rep #: [id number] : 1940 M 83 From: Pepe duffy MD PCP: Dr. Jacquelin Spaulding MD Status: REG ER Study: HIP, UNI W/ Pelvis 2-3 Views Date of Exam: 08/21 Exam# [id number] Ordering Dr: Helder Aiken DO [id number] STUDY: X-RAY - PELVIS AND LEFT HIP [...] changes of both hip joints. Electronically Signed: Peep Bunn MD at 12:20 EDT , CC: Dr. Jacquelin Spaulding MD; Dr. Helder Aiken DO [employer]: Signed Normal [facility] Humerus min 2 Viewson 2023 Humerus min 2 Views [facility] Imaging Services [address], [place] [address] Humerus min 2 Views MR#: [id number] Acct: [id number] Name: MELVIN RIDDLE Rep #: [id number] : 1940 M 83 From: Pepe duffy MD PCP: Dr. Jacquelin Spaulding MD Status: REG ER Study: Humerus min 2 Views Date of Exam: 01/28/24 Exam# [id number] Ordering Dr: Helder Aiken DO [id number] STUDY: X-RAY - LEFT HUMERUS REASON FOR [...] 12:19 EDT Reading Location ID and State: [facility] / [place] , Service support , CC: Dr. Jacquelin Spaulding MD; Dr. Helder Aiken DO [employer]: Signed Normal [facility] L501.4020on 01-28-2024 TROPONIN-I HS 6 pg/mL Normal 3.0-78.0 [facility] Comment on above: Order Comment: 'TROP ' Serial specimen #1, #2 or #3: 1 Result Comment: Plea se Note: New Test Units and Gender Specific Reference Ranges. For more information see Policy Stat Procedure [place] High Sensitivity Troponin (TNIH) and attachments. Performed By: #### L 100.0100, L501.4020, L500.4050 #### [facility] [address] [facility] [place], [address] Spine Cervical without Contr ason 01-28-2024 Spine Cervical without Contras [facility] Imaging Services [address] [place], [place] [address] Spine Cervical without Contras MR#: [id number] Acct: [id number] Name: MELVIN RIDDLE Rep #: [id number] : 1940 M 83 From: Pepe duffy MD PCP: Dr. Jacquelin Spaulding MD Status: REG ER Study: Spine Cervical without Contras Date of Exam: 0 01/28/24 Exam# [id number] Ordering Dr: Helder Aiken DO [id number] STUDY: CT CERVICAL SPINE WITHOUT CONTRAST REASON [...] Jacquelin Spaulding MD; Dr. Helder Aiken DO [employer]: Signed Normal [facility] Spine Lumbar without Contras ton 01-28-2024 Spine Lumbar without Contrast [facility] Services [address] [place] [address] Spine Lumbar without Contrast MR#: [id number] Acct: [id number] Name: MELVIN RIDDLE Rep #: [id number] : 1940 M 83 From: Pepe duffy MD PCP: Dr. Jacquelin Spaulding MD Status: REG ER Study: Spine Lumbar without Contrast Date of Exam: Exam# [id number] Ordering Dr: Helder Aiken DO [id number] STUDY: CT LUMBAR SPINE WITHOUT CONTRAST REASON [...] Jacquelin Spaulding MD; Dr. Helder Aiken DO [employer]: Signed Normal [facility] Absolute lymphocyte countOrd ered By: Jonathan Bedoya on 05-22-2023 Lymphocytes Auto (Unsp spec) [#/Vol] 0.98 10*3/uL 0.83-4.51 [facility] Basophil percentageOrdered B y: Jonathan Bedoya on 05-22-2023 Basophil percentage 0-5 SEEN /hpf 0-5 [facility] Basophils/100 WBC (Bld) 0.4 % 0-1 [facility] Bilirubin [Mass/Vol] 0.70 mg/dL 0.20-1.00 [facility] Comment on above: For patients on eltr ombopag therapy, use of Dimension [place] TBIL is not recommended. Chloride [Moles/Vol] 105 mmol/L 98-107 [facility] Eosinophils/100 WBC (Bld) 0.2 % 0-5 [facility] Glucose [Mass/Vol] 99 mg/dL 74-106 [facility] Neutrophils (Bld) [#/Vol] 6.2 10*3/uL 2.0-7.7 [facility] Neutrophils/100 WBC (Bld) 76.6 % 47-70 [facility] Potassium [Moles/Vol] 4.0 mmol/L 3.5-5.1 [facility] Protein [Mass/Vol] 6.5 g/dL 6.4-8.2 [facility] Sodium [Moles/Vol] 137 mmol/L 136-145 [facility] WBC (Bld) [#/Vol] 8.1 10*3/uL 4.4-11.0 [facility] Bilirubin Test strip Ql (U)O rdered By: Jonathan Bedoya on 05-22-2023 Bilirubin Ql (U) Negative Negative [facility] Blood erythrocytes count (nu mber/volume)Ordered By: Jonathan Bedoya on 05-22-2023 RBC (Bld) [#/Vol] 4.46 10*6/uL 4.6-6.2 [facility] Blood hemoglobin measurement (mass/volume)Ordered By: Jonathan Bedoya on 05-22-2023 Hemoglobin (Bld) [Mass/Vol] 14.2 g/dL 13.0-16.5 [facility] Blood lymphocytes/100 leukoc ytesOrdered By: Jonathan Bedoya on 05-22-2023 Lymphocytes/100 WBC (Bld) 12.2 % 19-41 [facility] Blood monocytes/100 leukocyt esOrdered By: Jonathan Bedoya on 05-22-2023 Monocytes/100 WBC (Bld) 10.4 % 0-10 [facility] Blood platelet mean volumeOr dered By: Jonathan Bedoya on 05-22-2023 Platelet mean volume (Bld) [Entitic vol] 10.5 fL 6.2-12.0 [facility] Determination of erythrocyte mean corpuscular volume (MCV)Ordered By: Jonathan Bedoya on 05-22-2023 MCV (RBC) [Entitic vol] 95.3 fL 80-94 [facility] Hematocrit Auto (Bld) [Volum e fraction]Ordered By: Jonathan Bedoya on 05-22-2023 Hematocrit (Bld) [Volume fraction] 42.5 % 40-54 [facility] Influenza virus A and B and SARS-CoV-2 (COVID-19) Ag panel - Upper respiratory specimOrdered By: Jonathan Bedoya on 05-22-2023 SARS-CoV-2 & FLU Antigen (Rapid) SARS-CoV-2 (COVID 19) [facility] Ketones Test strip Ql (U)Ord ered By: Jonathan Bedoya on 05-22-2023 Ketones Ql (U) 50 mg/dl Negative [facility] - Chemistry and C hemistry - challengeOrdered By: Jonathan Bedoya on 05-22-2023 ALP [Catalytic activity/Vol] 55 U/L 45-117 [facility] ALT [Catalytic activity/Vol] 26 U/L 16-61 [facility] CO2 [Moles/Vol] 26.0 mmol/L 21.0-32.0 [facility] Globulin (S) [Mass/Vol] 2.8 g/dL 2.2-4.2 [facility] Urea nitrogen/Creatinine [Mass ratio] 10.8 mg/mg 10-20 [facility] - Hematology and Cell countsOrdered By: Jonathan Bedoya on 05-22-2023 Erythrocyte distribution width (RBC) [Entitic vol] 44.6 fL 35.1-43.9 [facility] Erythrocyte distribution width (RBC) [Ratio] 12.7 % 11.6-14.6 [facility] Immature granulocytes/100 WBC (Bld) 0.200 % 0.0-0.9 [facility] Comment on above: IG% - Immature Granu locytes (promyelocytes, myelocytes and metamyelocytes) > 1% indicates that a LEFT SHIFT is Present. MCH (RBC) [Entitic mass] 31.8 pg 27.0-32.0 [facility] Nucleated RBC/100 WBC (Bld) [Ratio] 0 % 0-5 [facility] MCHC Auto (RBC) [Mass/Vol]Or dered By: Jonathan Bedoya on 05-22-2023 MCHC (RBC) [Mass/Vol] 33.4 g/dL 32-36 [facility] Mucus LM Ql (Urine sed)Order ed By: Jonathan Bedoya on 05-22-2023 Mucus Ql (Urine sed) 0 SEEN /hpf [facility] Nitrite Test strip Ql (U)Ord ered By: Jonathan Bedoya on 05-22-2023 Nitrite Ql (U) Negative Negative [facility] No Panel InformationOrdered By: Jonathan Bedoya on 05-22-2023 Estimated Creatinine Clearance Calc 60.85 ml/min [facility] Estimated GFR (MDRD) Amer 113 mL/min >60 [facility] Comment on above: GFR Calc Estimated GFR (MDRD) Non-Af Amer 94 mL/min >60 [facility] Comment on above: Non- GFR Calc Troponin I High Sensitivity 9 pg/mL 3.0-78.0 [facility] Comment on above: Please Note: New Maegan t Units and Gender Specific Reference Ranges. For more information see Policy Stat Procedure [place] High Sensitivity Troponin (TNIH) and attachments. Platelets bldOrdered By: Tawanda Bedoya on 05-22-2023 Platelets (Bld) [#/Vol] 177 10*3/uL 150-450 [facility] Protein Test strip Ql (U)Ord ered By: Jonathan Bedoya on 05-22-2023 Protein Ql (U) Negative Negative [facility] Serum or plasma albumin morris urement (mass/volume)Ordered By: Jonathan Bedoya on 05-22-2023 Albumin [Mass/Vol] 3.7 g/dL 3.2-5.0 [facility] Serum or plasma albumin/glob ulin mass ratioOrdered By: Jonathan Bedoya on 05-22-2023 Albumin/Globulin [Mass ratio] 1.3 {ratio} 0.9-2.4 [facility] Serum or plasma calcium morris urement (mass/volume)Ordered By: Jonathan Bedoya on 05-22-2023 Calcium [Mass/Vol] 8.7 mg/dL 8.5-10.1 [facility] Serum or plasma creatinine m easurement (mass/volume)Ordered By: Jonathan Bedoya on 05-22-2023 Creatinine [Mass/Vol] 0.83 mg/dL 0.70-1.30 [facility] Comment on above: The validity of the calculated GFR & GFRAA in patients over 70 years has not been determined. Clinical correlation is essential. Serum or plasma urea nitroge n measurement (mass/volume)Ordered By: Jonathan Bedoya on 05-22-2023 Urea nitrogen [Mass/Vol] 9 mg/dL 7-18 [facility] Squamous epithelial cells de tection in urine sediment by light microscopyOrdered By: Jonathan Bedoya on 11-25-2023 Epithelial cells.squamous LM Ql (Urine sed) 0 SEEN /hpf 0-5 [facility] Thin prep Papanicolaou smear with manual screeningOrdered By: Jonathan Bedoya on 05-22-2023 Thin prep Papanicolaou smear with manual screening 14 U/L 15-37 [facility] Thin prep Papanicolaou smear with manual screening 6 5-15 [facility] Urine blood detectionOrdered By: Jonathan Bedoya on 05-22-2023 RBC Ql (U) Negative Negative [facility] RBC Ql (U) 0 SEEN /hpf 0-5 [facility] Urine clarityOrdered By: Tawanda Bedoya on 05-22-2023 Clarity (U) Clear Clear [facility] Urine color determinationOrd ered By: Jonathan Bedoya on 05-22-2023 Color (U) Yellow Yellow [facility] Urine glucose detectionOrder ed By: Jonathan Bedoya on 05-22-2023 Glucose Ql (U) Normal mg/dl Normal [facility] Urine leukocyte esterase det ection by dipstickOrdered By: Jonathan Bedoya on 05-22-2023 Leukocyte esterase Test strip Ql (U) 25 /ul Negative [facility] Urine pHOrdered By: Jonathan ba on 05-22-2023 pH (U) 6.0 [pH] 5.0 - 8.0 [facility] Urine sediment bacteria coun t by microscopy (number/high power field)Ordered By: Jonathan Bedoya on 05-22-2023 Bacteria LM.HPF (Urine sed) [#/Area] 0 /[HPF] None Seen [facility] Urine specific gravity measu rementOrdered By: Jonathan Bedoya on 05-22-2023 Specific gravity (U) [Rel density] 1.020 1.002-1.030 [facility] Urobilinogen Auto test strip Ql (U)Ordered By: Jonathan Bedoya on 05-22-2023 Urobilinogen Ql (U) Normal mg/dl Normal [facility] VITAMIN B12 BLOODon 10-08-19 23 Cobalamin (Vitamin B12) [Mass/Vol] 792 pg/mL 232 - 1,245 pg/mL [facility] CNPJohana 04-07-2022 CNPN Telephone (GERIST) MELVIN RIDDLE ([id number]) 1940 M Date Time Provider Department 04/07/22 [...] Meds Comments as of 01/06/2019: Uses [facility] Problem List As Of Date 04/07/2022 Noted Resolved Pulmonary emphysema (HCC) [J43.9] 10/11/2017 Encounter Status:Closed by ARELIS BEE on 04/07/22 [facility] VITAMIN D 25 HYDROXYon 03-23 25-hydroxyvitamin D3 [Mass/Vol] 44.3 ng/mL >=30.0 ng/mL [facility] 25(OH)D3 SerPl-mCncon 2021 25-hydroxyvitamin D3 [Mass/Vol] 44.3 ng/mL Normal >=30.0 [facility] Comment on above: Order Comment: Paula aceves Type: BLOOD SPECIMEN Ordering Facility: [facility] Address: [address] [place] [address] Result Comment: Clas sification of 25 [place] Vitamin D status: Deficiency: <= 20.0 ng/ml. Insufficiency: 21.0-29.0 ng/ml. Sufficiency: >= 30.0 ng/ml. Performed By: #### 1 989-3 #### [facility] CLIA [id number] [address] [place] [address] [facility] CBC panel Auto (Bld)on 03-20 Erythrocyte distribution width (RBC) [Ratio] 13.2 % 11.5 - 15.0 % [facility] Hematocrit (Bld) [Volume fraction] 44.6 % 39.0 - 51.0 % [facility] Hemoglobin (Bld) [Mass/Vol] 14.9 g/dL 13.0 - 17.0 g/dL [facility] MCH (RBC) [Entitic mass] 31.8 pg 26. 0 - 34.0 pg [facility] MCHC (RBC) [Mass/Vol] 33.4 g/dL 30.5 - 36.0 g/dL [facility] MCV (RBC) [Entitic vol] 95.3 fL 80.0 - 100.0 fL [facility] Nucleated RBC (Bld) [#/Vol] <0.01 k/uL [facility] Platelet mean volume (Bld) [Entitic vol] 11.2 fL 9.0 - 12.7 fL [facility] Platelets (Bld) [#/Vol] 211 10*3/uL 150 - 400 k/uL [facility] RBC (Bld) [#/Vol] 4.68 10*6/uL 4.20 - 6.0 0 m/uL [facility] WBC (Bld) [#/Vol] 6.38 10*3/uL 3.70 - 11. 00 k/uL [facility] Erythrocyte distribution width (RBC) [Ratio] 13.2 % Normal 11.5-15.0 [facility] Comment on above: Order Comment: Paula aceves Type: BLOOD SPECIMEN Ordering Facility: [facility] Address: [address] [address] Performed By: #### 5 8410-2 #### [facility] CLIA [id number] [address] Hematocrit (Bld) [Volume fraction] 44.6 % Normal 39.0-51.0 [facility] Comment on above: Order Comment: Speci men Type: BLOOD SPECIMEN Ordering Facility: [facility] Address: [address] [place] [address] Performed By: #### 5 8410-2 #### [facility] CLIA [id number] [address] Hemoglobin (Bld) [Mass/Vol] 14.9 g/dL Normal 13.0-17.0 [facility] Comment on above: Order Comment: Speci men Type: BLOOD SPECIMEN Ordering Facility: [facility] Address: [address] [place] [address] Performed By: #### 5 8410-2 #### [facility] CLIA [id number] [address] MCH (RBC) [Entitic mass] 31.8 pg Normal 26.0-34.0 [facility] Comment on above: Order Comment: Speci men Type: BLOOD SPECIMEN Ordering Facility: [facility] Address: [address] [place] [address] Performed By: #### 5 8410-2 #### [facility] CLIA [id number] [address] [facility] MCHC (RBC) [Mass/Vol] 33.4 g/dL Normal 30.5-36.0 [facility] Comment on above: Order Comment: Speci men Type: BLOOD SPECIMEN Ordering Facility: [facility] Address: [address] [place] [address] Performed By: #### 5 8410-2 #### [facility] CLIA [id number] [address] MCV (RBC) [Entitic vol] 95.3 fL Normal 80.0-100.0 [facility] Comment on above: Order Comment: Speci men Type: BLOOD SPECIMEN Ordering Facility: [facility] Address: [address] [address] Performed By: #### 5 8410-2 #### [facility] CLIA [id number] [address] [place] Nucleated RBC (Bld) [#/Vol] 10*3/uL Normal <0.01 [facility] Comment on above: Order Comment: Speci men Type: BLOOD SPECIMEN Ordering Facility: [facility] Address: [address] [place] [address] Performed By: #### 5 8410-2 #### [facility] CLIA [id number] [address] [place] Platelet mean volume (Bld) [Entitic vol] 11.2 fL Normal 9.0-12.7 [facility] Comment on above: Order Comment: Speci men Type: BLOOD SPECIMEN Ordering Facility: [facility] Address: [address] [place] [address] Performed By: #### 5 8410-2 #### [facility] CLIA [id number] [address] [place] Platelets (Bld) [#/Vol] 211 10*3/uL Normal 150-400 [facility] Comment on above: Order Comment: Speci men Type: BLOOD SPECIMEN Ordering Facility: [facility] Address: [address] Performed By: #### 5 8410-2 #### [facility] CLIA [id number] 1 [place] [address] [place] RBC (Bld) [#/Vol] 4.68 10*6/uL Normal 4.20-6.00 [facility] Comment on above: Order Comment: Speci men Type: BLOOD SPECIMEN Ordering Facility: [facility] Address: [address] [place] [address] Performed By: #### 5 8410-2 #### [facility] CLIA [id number] 1 [place] [address] [facility] WBC (Bld) [#/Vol] 6.38 10*3/uL Normal 3.70-11.00 [facility] Comment on above: Order Comment: Speci men Type: BLOOD SPECIMEN Ordering Facility: [facility] Address: [address] [place] [address] Performed By: #### 5 8410-2 #### [facility] CLIA [id number] [address] [place] [address] [facility] CNOVon 03-20-2022 CNOV Office Visit (GERIST) MELVIN RIDDLE ([id number]) 1940 M Date Time Provider Department 03/20/22 9:20 AM CATHERINE CROW During your visit today, we recorded the following information about you: Temperature Pulse Blood pressure Weight 97.7 degrees 68/minute 137/59 68.4 kg Catherine Crow MD 04/20/2022 10:22 AM Signed Catherine Crow MD [facility]. [facility] [address] [place] [address] COMPREHENSIVE GERIATRICS ASSESSMENT Patient presents with: Geriatric [...] more steeply. 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 He needs a shai at work to help guide him if he needs. Does not take any medications. Has forgotten to turn off stove. Per his last PCP note, he also did get lost driving. Home: lives at home with his daughter Social Engagement: pt works at [employer] in the [employer] department Hobbies: walking the dogs. Likes to [...] been discussed? Yes Is a power of district attorney in place for financial needs? Yes Is a power of district attorney in place for health care decisions? [...] A, Transportation:D, Medications: D, Handle Finances: A. ([place] scale): 0 Mobility Aid: None Falls: .: Falls in the last 12 months: Positive: 1 fall. If + falls: Late Spring/Early Summer - in the garage was bending over trying to grab something after he was leaning over to flower picker the beer can and (more content not included)... Normal [facility] Comprehensive metabolic 2000 panelon 03-20-2022 Albumin [Mass/Vol] 5.0 g/dL High 3.9 - 4.9 g/dL [facility] ALP [Catalytic activity/Vol] 50 U/L 38 - 113 U/L [facility] ALT With P-5'-P [Catalytic activity/Vol] 20 U/L 10 - 54 U/L [facility] Anion gap [Moles/Vol] 10 mmol/L 9 - 18 mmol/L [facility] AST With P-5'-P [Catalytic activity/Vol] 22 U/L 14 - 40 U/L [facility] Bilirubin [Mass/Vol] 0.6 mg/dL 0.2 - 1 .3 mg/dL [facility] Calcium [Mass/Vol] 9.6 mg/dL 8.5 - 10. 2 mg/dL [facility] Chloride [Moles/Vol] 103 mmol/L 97 - 10 5 mmol/L [facility] CO2 [Moles/Vol] 26 mmol/L 22 - 30 mmol/L [facility] Creatinine [Mass/Vol] 0.78 mg/dL 0.73 - 1.22 mg/dL [facility] Estimated Glomerular Filtration Rate 89 mL/min/1.73m >=60 mL/min/1.73m [facility] Glucose [Mass/Vol] 89 mg/dL 74 - 99 mg/dL [facility] Potassium [Moles/Vol] 4.9 mmol/L 3.7 - 5.1 mmol/L [facility] Protein [Mass/Vol] 6.9 g/dL 6.3 - 8.0 g/dL [facility] Sodium [Moles/Vol] 139 mmol/L 136 - 144 mmol/L [facility] Urea nitrogen [Mass/Vol] 12 mg/dL 9 - 24 mg/d L [facility] Albumin [Mass/Vol] 5.0 g/dL High 3.9-4.9 [facility] Comment on above: Order Comment: Speci men Type: BLOOD SPECIMEN [facility]ing Facility: [facility] Address: [address] [place] [address] Performed By: #### 3 016-3, 54720-8, 3023-12, 2132-02 #### [facility] CLIA [id number] [address] ALP [Catalytic activity/Vol] 50 U/L Normal 38-113 [facility] Comment on above: Order Comment: Speci men Type: BLOOD SPECIMEN Ordering Facility: [facility] Address: [address] [place], [place] [address] Performed By: #### 3 016-3, 18722-4, 3023-12, 2132-02 #### [facility] CLIA [id number] [address] STATES OF [facility] ALT With P-5'-P [Catalytic activity/Vol] 20 U/L Normal 10-54 [facility] Comment on above: Order Comment: Speci men Type: BLOOD SPECIMEN Ordering Facility: [facility] Address: [address] [place] [address] Performed By: #### 3 016-3, 66019-1, 3023-12, 2132-02 #### [facility] CLIA [id number] [address] [place] Anion gap [Moles/Vol] 10 mmol/L Normal 9-18 [facility] Comment on above: Order Comment: Speci men Type: BLOOD SPECIMEN Ordering Facility: [facility] Address: [address] [place] [address] Performed By: #### 3 016-3, 81141-0, 3023-12, 2132-02 #### [facility] CLIA [id number] [address] [place] With P-5'-P [Catalytic activity/Vol] 22 U/L Normal 14-40 [facility] Comment on above: Order Comment: Speci men Type: BLOOD SPECIMEN Ordering Facility: [facility] Address: [address] [place] [address] Performed By: #### 3 016-3, 28109-1, 3023-12, 2132-02 #### [facility] CLIA [id number] 1 [place] [address] [place] Bilirubin [Mass/Vol] 0.6 mg/dL Normal 0.2-1.3 [facility] Comment on above: Order Comment: Speci men Type: BLOOD SPECIMEN Ordering Facility: [facility] Address: [address] [place] [address] Performed By: #### 3 016-3, 03890-3, 3023-12, 2132-02 #### [facility] CLIA [id number] [address] [place] Calcium [Mass/Vol] 9.6 mg/dL Normal 8.5-10.2 [facility] Comment on above: Order Comment: Speci men Type: BLOOD SPECIMEN Ordering Facility: [facility] Address: [address] [place] [address] Performed By: #### 3 016-3, 45744-1, 302-7, 2132-02 #### [facility] CLIA [id number] [address] STATES OF [facility] Chloride [Moles/Vol] 103 mmol/L Normal 97-105 [facility] Comment on above: Order Comment: Speci men Type: BLOOD SPECIMEN Ordering Facility: [facility] Address: [address] [place] [address] Performed By: #### 3 016-3, 07864-8, 3023-7, 2132-02 #### [facility] CLIA [id number] [address] STATES OF [facility] CO2 [Moles/Vol] 26 mmol/L Normal 22-30 [facility] Comment on above: Order Comment: Speci men Type: BLOOD SPECIMEN Ordering Facility: [facility] Address: [address] [place] [address] Performed By: #### 3 016-3, 27021-0, 7, 2132-02 #### [facility] CLIA [id number] [address] OF [facility] Creatinine [Mass/Vol] 0.78 mg/dL Normal 0.73-1.22 [facility] Comment on above: Order Comment: Speci men Type: BLOOD SPECIMEN Ordering Facility: [facility] Address: [address] [place] [address] Performed By: #### 3 016-3, 03113-0, 7, 2132-02 #### [facility] CLIA [id number] [address] ESTIMATED GLOMERULAR FILTRATION RATE 89 mL/min/1.73m??? Normal >=60 [facility] Comment on above: Order Comment: Speci men Type: BLOOD SPECIMEN Ordering Facility: [facility] Address: [address] [place] [address] Result Comment: Lisa mated Glomerular Filtration Rate [...] actual GFR. Performed By: #### 3 016-3, 22496-5, 3023-12, 2132-02 #### [facility] CLIA [id number] 1 [place] [address] [place] Glucose [Mass/Vol] 89 mg/dL Normal 74-99 [facility] Comment on above: Order Comment: Paula aceves Type: BLOOD SPECIMEN Ordering Facility: [facility] Address: [address] [place] [address] Result Comment: The [place] [employer] (ADA) provides guidance for cutoff [...] Standards of Medical Care in Diabetes 2016, [place] [employer]. Diabetes Care. 2016.39(Suppl 1). Performed By: #### 3 016-3, 83049-2, 3023-12, 2132-02 #### [facility] CLIA [id number] 1 [place] [address] [place] Potassium [Moles/Vol] 4.9 mmol/L Normal 3.7-5.1 [facility] Comment on above: Order Comment: Paula aceves Type: BLOOD SPECIMEN Ordering Facility: [facility] Address: [address] [place] [address] Performed By: #### 3 016-3, 67632-0, 3023-12, 2132-02 #### [facility] CLIA [id number] 1 [place] [address] [place] Protein [Mass/Vol] 6.9 g/dL Normal 6.3-8.0 [facility] Comment on above: Order Comment: Speci men Type: BLOOD SPECIMEN Ordering Facility: [facility] Address: [address] [place] [address] Performed By: #### 3 016-3, 45020-0, 7, 2132-02 #### [facility] CLIA [id number] 1 [place] [address] [place] Sodium [Moles/Vol] 139 mmol/L Normal 136-144 [facility] Comment on above: Order Comment: Speci men Type: BLOOD SPECIMEN Ordering Facility: [facility] Address: [address] [place] [address] Performed By: #### 3 016-3, 06607-0, 7, 2132-02 #### [facility] CLIA [id number] [address] [place] Urea nitrogen [Mass/Vol] 12 mg/dL Normal 9-24 [facility] Comment on above: Order Comment: Speci men Type: BLOOD SPECIMEN Ordering Facility: [facility] Address: [address] [place] [address] Performed By: #### 3 016-3, 66655-0, 7, 2132-02 #### [facility] CLIA [id number] 1 [place] [address] [place] T4 FREE/FREE THYROXon 2021 Free T4 [Mass/Vol] 1.5 ng/dL 0.9 - 1.7 ng/dL [facility] T4 Free SerPl-mCncon 022 Free T4 [Mass/Vol] 1.5 ng/dL Normal 0.9-1.7 [facility] Comment on above: Order Comment: Speci men Type: BLOOD SPECIMEN Ordering Facility: [facility] Address: [address] [place] [address] Performed By: #### 3 016-3, 17069-3, 3023-12, 2132-02 #### [facility] CLIA [id number] [address] [place] TSH BLDon 03-20-2022 TSH Qn 0.314 m[IU]/L 0.270 - 4.200 mIU/L [facility] TSH SerPl-aCncon 03-20-2022 TSH Qn 0.314 m[IU]/L Normal 0.270-4.200 [facility] Comment on above: Order Comment: Speci men Type: BLOOD SPECIMEN Ordering Facility: [facility] Address: [address] [place] [address] Performed By: #### 3 016-3, 81747-2, 3023-12, 2132-02 #### [facility] CLIA [id number] [address] OF [facility] VITAMIN B12 BLOODon 03-20-20 22 Cobalamin (Vitamin B12) [Mass/Vol] 161 pg/mL Low 232 - 1,245 pg/mL [facility] Vit B12 SerPl-mCncon 022 Cobalamin (Vitamin B12) [Mass/Vol] 161 pg/mL Low 232-1245 [facility] Comment on above: Order Comment: Speci men Type: BLOOD SPECIMEN Ordering Facility: [facility] Address: [address] [place] [address] Performed By: #### 3 016-3, 60557-6, 3023-12, 2132-02 #### [facility] CLIA [id number] [address] Vital Signs Date Time Vital Sign Value Performing Clinician Faci hailey 11-09-2024 13:21-0400 Body mass index (BMI) [Ratio] 30.21 kg/m2 Jacquelin Spaulding MD Work Phone: [facility] 11-09-2024 13:21-040 Body weight 78.6 kg Jacquelin Spaulding MD Work Phone: [facility] 11-09-2024 13:21-0400 Diastolic blood pressure 74 mm[Hg] Jacquelin Spaulding MD Work Phone: [facility] 11-09-2024 13:21-0400 Heart rate 80 /min Jacquelin Spaulding MD Work Phone: [facility] 11-09-2024 13:21-0400 Respiratory rate 14 /min Jacquelin Spaulding MD Work Phone: [facility] 11-09-2024 13:21-0400 Systolic blood pressure 128 mm[Hg] Jacquelin Spaulding MD Work Phone: [facility] 08-21-2024 13:43-0500 Body mass index (BMI) [Ratio] 31.02 kg/m2 Jacquelin Spaulding MD Work Phone: [facility] 08-21-2024 13:43-0500 Body weight 80.7 kg Jacquelin Spaulding MD Work Phone: [facility] 08-21-2024 13:43-0500 Diastolic blood pressure 76 mm[Hg] Jacquelin Spaulding MD Work Phone: [facility] 08-21-2024 13:43-0500 Heart rate 92 /min Jacquelin Spaulding MD Work Phone: [facility] 08-21-2024 13:43-0500 Respiratory rate 20 /min Jacquelin Spaulding MD Work Phone: [facility] 08-21-2024 13:43-0500 Systolic blood pressure 130 mm[Hg] Jacquelin Spaulding MD Work Phone: [facility] 07-14-2024 13:20-0500 Body mass index (BMI) [Ratio] 31.25 kg/m2 Jacquelin Spaulding MD Work Phone: [facility] 07-14-2024 13:20-0500 Body weight 81.3 kg Jacquelin Spaulding MD Work Phone: [facility] 07-14-2024 13:20-0500 Diastolic blood pressure 80 mm[Hg] Jacquelin Spaulding MD Work Phone: [facility] 07-14-2024 13:20-0500 Heart rate 74 /min Jacquelin Spaulding MD Work Phone: [facility] 07-14-2024 13:20-0500 Respiratory rate 16 /min Jacquelin Spaulding MD Work Phone: [facility] 07-14-2024 13:20-0500 Systolic blood pressure 130 mm[Hg] Jacquelin Spaulding MD Work Phone: [facility] 05-08-2024 13:34-0500 Body height 161.3 cm Jacquelin Spaulding MD Work Phone: [facility] 05-08-2024 13:34-0500 Body mass index (BMI) [Ratio] 29.25 kg/m2 Jacquelin Spaulding MD Work Phone: [facility] 05-08-2024 13:34-0500 Body weight 76.1 kg Jacquelin Spaulding MD Work Phone: [facility] 05-08-2024 13:34-0500 Diastolic blood pressure 68 mm[Hg] Jacquelin Spaulding MD Work Phone: [facility] 05-08-2024 13:34-0500 Heart rate 84 /min Jacquelin Spaulding MD Work Phone: [facility] 05-08-2024 13:34-0500 Respiratory rate 18 /min Jacquelin Spaulding MD Work Phone: [facility] 05-08-2024 13:34-0500 Systolic blood pressure 120 mm[Hg] Jacquelin Spaulding MD Work Phone: [facility] 02-03-2024 09:57-0400 Body mass index (BMI) [Ratio] 28.42 kg/m2 Jacquelin Spaulding MD Work Phone: [facility] 02-03-2024 09:57-0400 Body weight 75.1 kg Jacquelin Spaulding MD Work Phone: [facility] 02-03-2024 09:57-0400 Diastolic blood pressure 78 mm[Hg] Jacquelin Spaulding MD Work Phone: [facility] 02-03-2024 09:57-0400 Heart rate 76 /min Jacquelin Spaulding MD Work Phone: [facility] 02-03-2024 09:57-0400 Respiratory rate 18 /min Jacquelin Spaulding MD Work Phone: [facility] 02-03-2024 09:57-0400 Systolic blood pressure 118 mm[Hg] Jacquelin Spaulding MD Work Phone: [facility] 01-28-2024 09:54-0400 Body temperature 97.39 [degF] Gabrielle Montez RUBY [employer] RAILS CONSULTANT.IT HELP DESK ANALYST Work Phone: [facility] 01-28-2024 09:54-0400 Diastolic blood pressure 77 mm[Hg] Gabrielle Montez RUBY ON RAILS CONSULTANT.IT HELP DESK ANALYST Work Phone: [facility] 01-28-2024 09:54-0400 Heart rate 72 /min Gabrielle Montez RUBY ON RAILS CONSULTANT.IT HELP DESK ANALYST Work Phone: [facility] 01-28-2024 09:54-0400 Respiratory rate 18 /min Gabrielle Montez RUBY ON RAILS CONSULTANT.IT HELP DESK ANALYST Work Phone: [facility] 01-28-2024 09:54-0400 SaO2% (BldA) [Mass fraction] 93 % Gabrielle Montez RUBY ON RAILS CONSULTANT.IT HELP DESK ANALYST Work Phone: [facility] 01-28-2024 09:54-0400 Systolic blood pressure 132 mm[Hg] Gabrielle Montez RUBY ON RAILS CONSULTANT.IT HELP DESK ANALYST Work Phone: [facility] 11-05-2023 16:12-0400 Body mass index (BMI) [Ratio] 28.37 kg/m2 Jacquelin Spaulding MD Work Phone: [facility] 11-05-2023 16:12-0400 Body weight 74.98 kg Jacquelin Spaulding MD Work Phone: [facility] 11-05-2023 16:12-0400 Diastolic blood pressure 80 mm[Hg] Jacquelin Spaulding MD Work Phone: [facility] 11-05-2023 16:12-0400 Heart rate 68 /min Jacquelin Spaulding MD Work Phone: [facility] 11-05-2023 16:12-0400 Respiratory rate 16 /min Jacquelin Spaulding MD Work Phone: [facility] 11-05-2023 16:12-0400 Systolic blood pressure 126 mm[Hg] Jacquelin Spaulding MD Work Phone: [facility] 05-22-2023 18:53-0500 Diastolic blood pressure 73 mm[Hg] [facility] 05-22-2023 18:53-0500 Heart rate 96 /min [facility] 05-22-2023 18:53-0500 Inhaled oxygen flow rate 2 L/min [facility] 05-22-2023 18:53-0500 Respiratory rate 18 /min [facility] 05-22-2023 18:53-0500 SaO2% (BldA) [Mass fraction] 94 % [facility] 05-22-2023 18:53-0500 Systolic blood pressure 142 mm[Hg] [facility] 05-22-2023 18:09-0500 Body temperature 99.8 [degF] [facility] 05-22-2023 17:27-0500 Body height 167.64 cm [facility] 05-22-2023 17:27-0500 Body mass index (BMI) [Ratio] 25.4 kg/m2 [facility] 05-22-2023 17:27-0500 Body weight 71.62 kg [facility] 10-06-2022 13:25-0400 Body weight 71.12 kg Jacquelin Spaulding MD Work Phone: [facility] 10-06-2022 13:25-0400 Diastolic blood pressure 78 mm[Hg] Jacquelin Spaulding MD Work Phone: [facility] 10-06-2022 13:25-0400 Heart rate 66 /min Jacquelin Spaulding MD Work Phone: [facility] 10-06-2022 13:25-0400 Respiratory rate 16 /min Jacquelin Spaulding MD Work Phone: [facility] 10-06-2022 13:25-0400 Systolic blood pressure 120 mm[Hg] Jacquelin Spauldnig MD Work Phone: [facility] 06-10-2022 08:30-0500 Body weight 70.76 kg Marion Libertyhof RU[employer] RAILS CONSULTANT.IT HELP DESK ANALYST Work Phone: [facility] 06-10-2022 08:30-0500 Diastolic blood pressure 80 mm[Hg] Marion Koenighof RUBY ON RAILS CONSULTANT.IT HELP DESK ANALYST Work Phone: [facility] 06-10-2022 08:30-0500 Heart rate 72 /min Marion Koenighof RUBY ON RAILS CONSULTANT.IT HELP DESK ANALYST Work Phone: [facility] 06-10-2022 08:30-0500 Respiratory rate 16 /min Marion Koenighof RUBY ON RAILS CONSULTANT.IT HELP DESK ANALYST Work Phone: [facility] 06-10-2022 08:30-0500 Systolic blood pressure 150 mm[Hg] Marion Koenighof RUBY ON RAILS CONSULTANT.IT HELP DESK ANALYST Work Phone: [facility] 04-22-2022 09:35-0400 Body temperature 99.5 [degF] Waqas Olmos RU[employer] ON RAILS CONSULTANT.IT HELP DESK ANALYST Work Phone: [facility] 04-22-2022 09:35-0400 Body weight 68.49 kg Waqas Olmos RU[employer] ON RAILS CONSULTANT.IT HELP DESK ANALYST Work Phone: [facility] 04-22-2022 09:35-0400 Diastolic blood pressure 68 mm[Hg] Waqas Olmos RUBY ON RAILS CONSULTANT.IT HELP DESK ANALYST Work Phone: [facility] 04-22-2022 09:35-0400 Heart rate 78 /min Waqas Olmos RUBY ON RAILS CONSULTANT.IT HELP DESK ANALYST Work Phone: [facility] 04-22-2022 09:35-0400 Respiratory rate 16 /min Waqas Olmos RUBY ON RAILS CONSULTANT.IT HELP DESK ANALYST Work Phone: [facility] 04-22-2022 09:35-0400 SaO2% (BldA) [Mass fraction] 94 % Waqas Olmos RU[employer] ON RAILS CONSULTANT.IT HELP DESK ANALYST Work Phone: [facility] 04-22-2022 09:35-0400 Systolic blood pressure 122 mm[Hg] Waqas King SHAILA Work Phone: [facility] 04-21-2022 15:33-0400 Body weight 68.13 kg Vikas Everett MD Work Phone: [facility] 04-21-2022 15:33-0400 Diastolic blood pressure 70 mm[Hg] Vikas Everett MD Work Phone: [facility] 04-21-2022 15:33-0400 Heart rate 76 /min Vikas Everett MD Work Phone: [facility] 04-21-2022 15:33-0400 Respiratory rate 16 /min Vikas Everett MD Work Phone: [facility] 04-21-2022 15:33-0400 SaO2% (BldA) [Mass fraction] 97 % Vikas Everett MD Work Phone: [facility] 04-21-2022 15:33-0400 Systolic blood pressure 136 mm[Hg] Vikas Everett MD Work Phone: [facility] 03-20-2022 09:39-0400 Body temperature 97.7 [degF] Catherine Corw MD Work Phone: [facility] 03-20-2022 09:39-0400 Body weight 68.4 kg Catherine Crow MD Work Phone: [facility] 03-20-2022 09:39-0400 Diastolic blood pressure 59 mm[Hg] Catherine Crow MD Work Phone: [facility] 03-20-2022 09:39-0400 Heart rate 68 /min Catherine Crow MD Work Phone: [facility] 03-20-2022 09:39-0400 SaO2% (BldA) [Mass fraction] 97 % Catherine Crow MD Work Phone: [facility] 03-20-2022 09:39-0400 Systolic blood pressure 137 mm[Hg] Catherine Crow MD Work Phone: [facility] 02-27-2022 16:17-0400 Body weight 66.88 kg Jacquelin Spaulding MD Work Phone: [facility] 02-27-2022 16:17-0400 Diastolic blood pressure 70 mm[Hg] Jacquelin Spaulding MD Work Phone: [facility] 02-27-2022 16:17-0400 Heart rate 68 /min Jacquelin Spaulding MD Work Phone: [facility] 02-27-2022 16:17-0400 Respiratory rate 14 /min Jacquelin Spaulding MD Work Phone: [facility] 02-27-2022 16:17-0400 SaO2% (BldA) [Mass fraction] 95 % Jacquelin Spaulding MD Work Phone: [facility] 02-27-2022 16:17-0400 Systolic blood pressure 120 mm[Hg] Jacquelin Spaulding MD Work Phone: [facility] Encounters Encounter Date Encounter Type Care Provider Facility Start: 11-09-2024 End: 11-09-2024 Office outpatient visit 25 minutes Jacquelin Spaulding MD Work Phone: [facility] Comment on above: Moderate dementia, u nspecified dementia type, unspecified whether behavioral, psychotic, or mood disturbance or anxiety (HCC) (Primary Dx); Need for vaccination; Vitamin B12 deficiency; Bilateral leg edema Start: 11-09-2024 End: 11-09-2024 ambulatory JACQUELIN SPAULDING Facility:[facility] Start: 10-05-2024 End: 10-05-2024 Follow-up encounter Jacquelin Spaulding MD Work Phone: [facility] Comment on above: Results Start: 10-05-2024 ambulatory JACQUELIN Weldon ity:[facility] Start: 10-05-2024 End: 10-05-2024 Subsequent hospital visit by physician Gi/Gu [facility] Work Phone: Radiology Comment on above: Esophageal dysphagia [R13.19] Start: 08-21-2024 End: 08-21-2024 ambulatory JACQUELIN SPAULDING Facility:[facility] Start: 08-21-2024 End: 08-21-2024 Patient encounter procedure Jacquelin Spaulding MD Work Phone: [facility] Comment on above: Bilateral leg edema (Primary Dx); Small vessel disease (HCC); Episode of gagging; Esophageal dysphagia; Mild dementia without behavioral disturbance, psychotic disturbance, mood disturbance, or anxiety, unspecified dementia type (HCC) Start: 08-17-2024 End: 08-17-[address] [facility] Start: 08-16-2024 End: 08-16-2024 ambulatory JACQUELIN SPAULDING Facility:[facility] Start: 08-16-2024 End: 08-16-2024 Telephone encounter Jacquelin Spaulding MD Work Phone: [address] [place] [address] Comment on above: Appointment Start: 07-14-2024 End: 07-14-2024 ambulatory Jacquelin Spaulding Facility:[facility] Start: 07-14-2024 End: 07-14-2024 Patient encounter procedure Jacquelin Spaulding MD Work Phone: [facility] Comment on above: Bilateral leg edema (Primary Dx); Mild dementia without behavioral disturbance, psychotic disturbance, mood disturbance, or anxiety, unspecified dementia type (HCC); Episode of gagging; Esophageal dysphagia Start: 07-10-2024 End: 07-10-2024 Telephone encounter Jacquelin Spaulding MD Work Phone: [facility] [place] Comment on above: Appointment Start: 05-08-2024 End: 05-08-2024 ambulatory JACQUELIN SPAULDING Facility:[facility] Start: 05-08-2024 End: 05-08-2024 Patient encounter procedure Jacquelin Spaulding MD Work Phone: [facility] Comment on above: Encounter for Medica re annual wellness exam (Primary Dx); Mild dementia without behavioral disturbance, psychotic disturbance, mood disturbance, or anxiety, unspecified dementia type (HCC); Vitamin B12 deficiency; Regular alcohol consumption; Encounter for immunization Start: 02-03-2024 End: 02-03-2024 ambulatory JACQUELIN SPAULDING Facility:[facility] Start: 02-03-2024 End: 02-03-2024 Patient encounter procedure Jacquelin Spaulding MD Work Phone: [facility] Comment on above: Fall, sequela (Prima ry Dx); Mild dementia without behavioral disturbance, psychotic disturbance, mood disturbance, or anxiety, unspecified dementia type (HCC) Start: 01-31-2024 ambulatory Rasta Antonio RN Work Phone: Director Cost Management Start: 01-31-2024 Follow-up encounter Rasta latham RN Work Phone: Director Cost Management Comment on above: ACRaymond CAIN RN ( ER outreach follow up) Start: 01-28-2024 End: 01-28-2024 Emergency department patient visit Helder Aiken Facility:[facility] Start: 01-28-2024 End: 01-28-2024 ambulatory JACQUELIN SPAULDING Facility:[facility] Start: 01-28-2024 End: 01-28-2024 Patient encounter procedure Gabrielle Montez APRN.IT HELP DESK ANALYST Work Phone: [facility] Comment on above: Fall, initial encoun ter (Primary Dx) Start: 01-21-2024 Refill Jacquelin marshall MD Work Phone: [facility] Comment on above: Refill Request Start: 01-17-2024 ambulatory [facility]esto [facility] Start: 01-17-2024 Patient encounter procedure Ernesto Feng MA [facility] Comment on above: Population Health [facility] Start: 11-08-2023 Telephone encounter [facility] Comment on above: Results Start: 11-05-2023 End: 11-05-2023 Patient encounter procedure Jacquelin Spaulding MD Work Phone: [facility] Comment on above: Mild dementia (HCC) (Primary Dx); Vitamin B12 deficiency; Mild dementia without behavioral disturbance, psychotic disturbance, mood disturbance, or anxiety, unspecified dementia type (HCC) Start: 10-25-2023 ambulatory Ernesto [facility] Start: 10-25-2023 Patient encounter procedure Ernesto Feng MA [facility] Comment on above: Population Health Na vigation Outreach ([facility] CURRENT ROSTER workbench - AWV, [facility] Start: 05-26-2023 Telephone encounter Jacquelin beverly MD Work Phone: [facility] Comment on above: medication issue Start: 05-22-2023 End: 05-22-2023 Emergency department patient visit [facility] Work Phone: Start: 12-31-2022 Refill Jacquelin marshall MD Work Phone: [address] [place] [address] Comment on above: Refill Request Start: 10-06-2022 End: 10-06-2022 Patient encounter procedure Jacuqelin Spaulding MD Work Phone: [facility] Comment on above: Mild dementia (HCC) (Primary Dx); Pulmonary emphysema, unspecified emphysema type (HCC); Vitamin B12 deficiency; Sleeping difficulties; Excessive drinking alcohol; Mild dementia, unspecified dementia type, unspecified whether behavioral, psychotic, or mood disturbance or anxiety (HCC) Start: 06-30-2022 Telephone encounter Catherine Crow MD Work Phone: [facility] Comment on above: Patient Request Start: 06-10-2022 End: 06-10-2022 Patient encounter procedure Marion Blair APRN.IT HELP DESK ANALYST Work Phone: [facility] Comment on above: Contact dermatitis, unspecified contact dermatitis type, unspecified trigger (Primary Dx); Mild dementia; Mild Alzheimer's dementia, unspecified timing of dementia onset, unspecified whether behavioral, psychotic, or mood disturbance or anxiety (HCC) Start: 04-23-2022 End: 04-23-2022 Patient encounter procedure Marion Blair APRN.IT HELP DESK ANALYST Work Phone: [facility] Comment on above: COVID-19 (Primary Dx ) Start: 04-22-2022 End: 04-22-2022 Patient encounter procedure Waqas Olmos APRN.IT HELP DESK ANALYST [facility] Comment on above: URI, acute (Primary Dx) Start: 04-21-2022 End: 04-21-2022 Patient encounter procedure Vikas Everett MD Work Phone: [facility] Comment on above: Rash (Primary Dx); Acute cough Start: 04-10-2022 End: 04-10-2022 ambulatory Catherine Crow MD Work Phone: [facility] Comment on above: 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, psychotic disturbance, mood disturbance, or anxiety (HCC) (Primary Dx) Start: 04-10-2022 End: 04-10-2022 Telemedicine consultation with patient Catherine Crow MD Work Phone: [facility] Start: 04-09-2022 End: 04-10-2022 ambulatory CATHERINE CROW Facility:[facility] Start: 04-07-2022 Telephone encounter Catherine Crow MD Work Phone: [facility] Comment on above: Results Start: 03-20-2022 End: 03-21-2022 ambulatory CATHERINE CROW Facility:[facility] Start: 03-20-2022 End: 03-20-2022 ambulatory CATHERINE CROW Facility:[facility] Start: 03-20-2022 End: 03-20-2022 Patient encounter procedure Catherine Crow MD Work Phone: [facility] Comment on above: Mild dementia (HCC) (Primary Dx); Memory deficit; Vitamin D deficiency; Mild late onset Alzheimer's dementia, unspecified whether behavioral, psychotic, or mood disturbance or anxiety (HCC) Start: 02-27-2022 End: 02-27-2022 Patient encounter procedure Jacquelin Spaulding MD Work Phone: [facility] Comment on above: Memory deficit (Prim blanca [...] Detail Author Start: 09-09-2031 Urine microalbumin profile [facility] Start: 08-16-2027 [facility] Start: 11-04-2026 [facility] Start: 03-20-2025 DIABETES SCREEN DIABETES SCREEN [facility] Start: 03-20-2025 [facility] Start: 02-12-2025 End: 02-12-2025 Patient encounter procedure 02/12/2025 2:40 PM EDT Office Visit Family Shaquille Ritter [address] [place], [place] [id number] Jacquelin Spaulding MD [address] [facility] [place], [place] [id number] 6 month follow up Family Shaquille Ritter Comment on above: 6 month follow up Start: 11-09-2024 End: 11-09-2024 Patient encounter procedure 11/09/2024 1:20 PM EDT Office Visit Family Shaquille Ritter [address] [place] [id number] Jacqueiln Spaulding MD [address] [place] [id number] 6 mo f/u Family Shaquille Ritter Comment on above: 6 mo f/u Start: 11-05-2024 Covid-19 Vaccine ( season) Covid-19 Vaccine () [facility] Start: 10-05-2024 End: 10-05-2024 Patient encounter procedure 10/05/2024 9:00 AM EDT Appointment Radiology [address] [place] [address] XR ESOPHAGRAM Radiology Comment on above: XR ESOPHAGRAM Start: 08-24-2024 End: 08-24-2024 Patient encounter procedure 08/24/2024 8:00 AM EST Office Visit Vasculary Surgery [address] [place], [place] [id number] Bilateral leg edema [R60.0] [facility] Comment on above: Bilateral leg edema [R60.0] Start: 08-21-2024 End: 08-21-2024 Patient encounter procedure 08/21/2024 1:40 PM EST Office Visit [facility] [address] [place], [place] [id number] Jacquelin Spaulding MD [address] [place], [place] [id number] 1 month follow up gagging, edema [facility] Comment on above: 1 month follow up ga gging, edema Start: 08-14-2024 End: 11-13-2024 Comprehensive metabolic 2000 panel - Serum or Plasma COMPREHENSIVE METABOLIC PANEL Lab Routine Bilateral leg edema Expected: 08/14/2024 (Approximate), Expires: 11/13/2024 [facility] Work Phone: Comment on above: Expected: 08/14/2024 (Approximate), Expires: 11/13/2024 Start: 08-14-2024 End: 08-14-2024 Patient encounter procedure 08/14/2024 8:30 AM EST Appointment Radiology [address] [place] [address] Esophageal dysphagia [R13.19] Radiology Comment on above: Esophageal dysphagia [R13.19] Start: 08-04-2024 End: 08-04-2024 Patient encounter procedure 08/04/2024 12:30 PM EST Office Visit Vasculary Surgery [address] [facility] [place] [address] Bilateral leg edema [R60.0] [facility] Comment on above: Bilateral leg edema [R60.0] Start: 07-14-2024 End: 07-14-2024 Patient encounter procedure 07/14/2024 1:20 PM EST Office Visit [facility] [address] [place] [address] Jacquelin Spaulding MD [address] [place], [place] [address] Choking issues to get Swallow Evaluation. See TE 07/10/24. [facility] Comment on above: Choking issues to ge t Swallow Evaluation. See TE 07/10/24. Start: 06-28-2024 Advance Directive Discussion Advance Directive Discussion [facility] Start: 05-08-2024 End: 05-08-2024 Patient encounter procedure 05/08/2024 1:40 PM EST Office Visit [facility] Shaquille Ritter [address] [place] [address] Jacquelin Spaulding MD [address] [place], [place] [id number] 6 month follow up antonia Mary [facility] Comment on above: 6 month follow up me adamesy Mary Start: 02-27-2024 Influenza vaccination Influenza Vacc ine (#1) [facility] Start: 02-03-2024 End: 02-03-2024 Patient encounter procedure 02/03/2024 10:00 AM EDT Office Visit [facility] [address] [place] [address] Jacquelin Spaulding MD [address] [facility], [place] [id number] Patient was seen in the Emergency Department (ED) Family Shaquille Ritter Comment on above: Patient was seen in the Emergency Department (ED) Start: 09-01-2023 Covid-19 Vaccine () Covid-19 Vaccine () [facility] Start: 06-28-2023 Advance Directive Discussion Advance Directive Discussion [facility] Start: 02-26-2023 Covid-19 Vaccine ( season) Covid-19 Vaccine () [facility] Start: 02-26-2023 Influenza vaccination [facility] Start: 10-06-2022 End: 12-06-2022 VITAMIN B1 (THIAMINE), WHOLE BLOOD [facility] Work Phone: Comment on above: Expected: 10/06/2022 , Expires: 12/06/2022 Start: 06-28-2022 ADVANCE DIRECTIVE DISCUSSION ADVANCE DIRECTIVE DISCUSSION [facility] Start: 06-28-2022 DEPRESSION ASSESSMENT DEPRESSION ASS ESSMENT [facility] Start: 04-23-2022 COVID-19 VACCINE (4 - Booster for Moderna series) COVID-19 VACCINE (4 - Booster for Moderna series) [facility] Start: 04-21-2022 End: 06-21-2022 VARICELLA ZOSTER PCR [facility] Work Phone: Comment on above: Expected: 04/21/2022 , Expires: 06/21/2022 Start: 02-26-2022 Influenza vaccination INFLUENZA (#1) [facility] Start: 02-16-2022 COVID-19 VACCINE (4 - Booster for Moderna series) COVID-19 VACCINE (4 - Booster for Moderna series) [facility] Start: 01-03-2022 DIABETES SCREEN DIABETES SCREEN [facility] Start: 06-28-2021 ADVANCE DIRECTIVE DISCUSSION ADVANCE DIRECTIVE DISCUSSION [facility] Start: 06-28-2021 DEPRESSION ASSESSMENT DEPRESSION ASS ESSMENT [facility] Start: 2014 RSV Vaccine (1 - 1-d ose 75+ series) RSV Vaccine (1 - 1-dose 75+ series) [facility] Start: 1999 RSV Vaccine (1 - 1-d ose 60+ series) RSV Vaccine (1 - 1-dose 60+ series) [facility] Start: 1989 SHINGRIX VACCINE (1 of 2) SHINGRIX VACCINE (1 of 2) [facility] Start: 1957 SPIROMETRY SPIROMETRY [facility] Influenza virus A an d B RNA and SARS-CoV-2 (COVID-19) N gene panel - Respiratory specimen by LITTLE with probe detection COVID WITH FLUA+B, ROUTINE Microbiology Routine URI, acute Ordered: 04/22/2022 [facility] Work Phone: Comment on above: Ordered: 04/22/2022 Patient Education Caring for Severiano eone Who Has COVID-19 [facility] Work Phone: Patient referral [facility] Work Phone: End: 07-14-2025 US.doppler Extremity arteries - bilateral for physiologic artery study [facility] Vascular Lab Routine Bilateral leg edema 1 Occurrences starting 07/14/2024 until 07/14/2025 [facility] Comment on above: 1 Occurrences starti ng 07/14/2024 until 07/14/2025 End: 08-13-2025 XR Esophagus Views W contrast PO XR ESOPHAGRAM Radiology Routine Esophageal dysphagia 1 Occurrences starting 07/14/2024 until 08/13/2025 [facility] Comment on above: 1 Occurrences starti ng 07/14/2024 until 08/13/2025 [facility] Immunizations Immunization Date Immunization Notes Care Provider [facility] 11-09-2024 COVID-19 vaccine, ag e 12+ yr (PFIZER-BIONTECH COMIRNATY) Jacquelin Spaulding MD Work Phone: [facility] 05-08-2024 COVID-19 vaccine, ag e 12+ yr (PFIZER-BIONTECH COMIRNATY) Jacquelin Spaulding MD Work Phone: [facility] 05-08-2024 influenza, high dose seasonal, preservative-free Jacquelin Spaulding MD Work Phone: [facility] 07-06-2023 influenza (HD-IIV4) vaccine, age 65+ yr, high dose, quadrivalent, PF (FLUZONE HIGH-DOSE) Ernesto Feng MA [facility] 07-06-2023 influenza virus vacc ine, unspecified formulation Ernesto Feng MA [facility] 05-03-2023 COVID-19 vaccine, ag e 12+ yr, 2022- season (MODERNA) Ernesto Feng MA [facility] 09-08-2021 tetanus toxoid, redu arelis diphtheria toxoid, and acellular pertussis vaccine, adsorbed Jacquelin Spaulding MD Work Phone: [facility] 09-18-2020 Covid (Moderna) [facility] 08-21-2020 Covid (Moderna) [facility] 04-19-2020 influenza (aIIV4) vaccine, age 65+ yr, quadrivalent, PF (FLUAD QUAD) Ernesto Feng MA [facility] 04-19-2020 influenza, high dose seasonal, preservative-free Jacquelin Spaulding MD Work Phone: [facility] 04-19-2020 pneumococcal conjuga te vaccine, 13 valent Jacquelin Spaulding MD Work Phone: [facility] 04-19-2020 influenza virus vacc ine, unspecified formulation Jacquelin Spaulding MD Work Phone: [facility] 2019 pneumococcal polysaccharide vaccine, 23 valent Jacquelin Spaulding MD Work Phone: [facility] Work Phone: 05-18-2018 pneumococcal conjuga te vaccine, 13 valent Jacquelin Spaulding MD Work Phone: [facility] 04-11-2016 influenza, seasonal, injectable, preservative free Jacquelin Spaulding MD Work Phone: [facility] Payers Date Payer Category Payer Self-pay [id number] 2018 Medicare (Managed Care) [id number] 2018 Unknown [id number] 2018 Unknown [id number] Medicare [place] [employer] MEDICARE [id number] Medicare MEDICARE PART A B [id number] Unknown [id number] Unknown [id number] Social History Date Type Detail Facility Start: 02-27-2022 End: 05-08-2024 Tobacco smoking status NHIS Ex-smoker [facility] History of tobacco use Current smoker [facility] History of tobacco use Cigarette Smoker [facility] Start: 02-27-2022 End: 04-15-2023 Cigarettes smoked current (pack per day) - Reported 0.8 [facility] Work Phone: Start: 02-27-2022 Tobacco use and exposure Former smokeless tobacco user [facility] History of tobacco use Snuff User [facility] Start: 02-27-2022 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 (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) [facility] Start: 02-27-2022 Tobacco Comment quit 30 years ago [facility] Start: 1940 Sex Assigned At Not on file [facility] Start: 02-17-2022 End: 04-21-2022 Exposure to SARS-CoV-2 (event) Not sure [facility] Start: 03-20-2022 End: 11-09-2024 Alcohol intake Current drinker of alcohol (finding) [facility] Start: 03-30-2022 End: 04-09-2022 Exposure to SARS-CoV-2 (event) Unable to assess [facility] Start: 04-13-2022 End: 04-23-2022 Exposure to SARS-CoV-2 (event) Yes [facility] Start: 05-22-2023 Tobacco smoking stat us TNIS Unknown if ever smoked [facility] Start: 10-10-2017 Cigarettes [facility] Start: 1940 Sex Assigned At Male W [facility] Start: 04-15-2023 End: 05-08-2024 Tobacco use panel [facility] Work Phone: Adult Depression Screening Assessment 0 [facility] Work Phone: Start: 05-08-2024 Tobacco use and exposure Smokeless tobacco non-user [facility] How often to you hav e a drink containing alcohol? 4 or more times a week [facility] How many standard drinks containing alcohol do you have on a typical day? 5 or 6 [facility] How often do you hav e 6 or more drinks on 1 occasion? Daily or almost daily [facility] Medical Equipment Procedure Code Equipment Code Equipment Origin al Text Equipment Identifier Dates MESH,PERFIX FLAT PRESHAPED FDA Start: 03-24-2018 Mental Status Date Assessment Result Facility 05-22-2023 Cognitive function Level Of Cons ciousness Awake;Alert;Appropriate;Follow s Commands [facility] Work Phone: Clinical Notes 02-27-2022 to 11-09-2024 [...] Here with his daughter who is his forest pathologist. He has another daughter who has a [...] Laterality Date COLONOSCOPY N/A 02/22/2018 Dr. Kaye, [facility] EGD N/A 02/22/2018 Dr. Kaye at [facility] HERNIA REPAIR HX N/A 02/2018 hernia [...] Past Histories independently gathered by the clinical technical support consultant and the remaining scribed note accurately describes [...] Chelo Graham MA documented in this encounter [facility] 11-09-2024 Note HNO ID: [id number] Author: JACQUELIN SPAULDING MD Service: ? Author Type: Physician Type: Progress Notes Filed: 11/09/2024 16:03 Note Text: Chief Complaint Patient presents with: 6 Month Exam HPI Melvin Riddle is a 84 year old male who presents here today for 6 month follow up. Here with his daughter who is his forest pathologist. He has another daughter who has a [...] Laterality Date COLONOSCOPY N/A 02/22/2018 Dr. Kaye, [facility] EGD N/A 02/22/2018 Dr. Kaye at [facility] HERNIA REPAIR HX N/A 02/2018 hernia [...] Past Histories independently gathered by the clinical technical support consultant and the remaining scribed note accurately describes my personal service to the patient. Medic (more content not included)... [facility] 10-05-2024 Telephone encounter Note Pt notified of results via [facility] Chelo Graham Ma [facility] 10-05-2024 Miscellaneous Notes Pt notified of results via [facility] Chelo Graham Ma Please notify patient's daughter that his swallowing test looked OK; no blockages were seen, and he seemed to swallow without aspiration. I think we can continue to monitor for now. Jacquelin Spaulding MD documented in this encounter [facility] 10-05-2024 Telephone encounter Note Please notify patient's daughter that his swallowing test looked OK; no blockages were seen, and he seemed to swallow without aspiration. I think we can continue to monitor for now. Jacquelin Spaulding MD [facility] 10-05-2024 History of Presen t illness [...] PATIENT PRESENTS WITH AN IMPLANTABLE OR ATTACHED WINDOW TRIMMER APPRENTICE: No RADIOLOGY DEPARTMENT: General X-ray: Exam(s) Completed: GI/ Procedure(s): Esophogram with barium contrast PERIPHERAL IV DATA: Not applicable SIGNED BY: RT Lula(Debby) October 05, 2024 9:55 AM documented in this encounter [facility] 10-05-2024 Note HNO ID: [id number] Author: MERYL WALLER RT(R) Service: Radiology Author [...] PATIENT PRESENTS WITH AN IMPLANTABLE OR ATTACHED WINDOW TRIMMER APPRENTICE: No RADIOLOGY DEPARTMENT: General X-ray: Exam(s) Completed: GI/ Procedure(s): Esophogram with barium contrast PERIPHERAL IV DATA: Not applicable SIGNED BY: RT Lula(Debby) October 05, 2024 9:55 AM [facility] 08-21-2024 Instructions Flower Narvaez MA - 08/21/2024 2:01 PM EST Follow up in October as scheduled. assembler lay ups Lasix at local Pharmacy. We did go ahead and send in prescription to [facility] for you. Keep swallow test scheduled in September. documented in this encounter [facility] 08-21-2024 History of Presen t illness [...] Left side normal. Daughter has questions about group home use of Lasix and what are possible issues with terminal gauger use of Lasix if any. Noted darker colored urine, drinking less beer at previous visit. CMP was ordered. Past medical history, appointments, medications, allergies reviewed. Previous Medical History No past medical history on file. Previous Surgical History PAST SURGICAL HISTORY Procedure Laterality Date COLONOSCOPY N/A 02/22/2018 Dr. Kaye, [facility] EGD N/A 02/22/2018 Dr. Kaye at [facility] HERNIA REPAIR HX N/A 02/2018 hernia [...] Past Histories independently gathered by the clinical technical support consultant and the remaining scribed note accurately describes [...] Flower Narvaez MA documented in this encounter [facility] 08-21-2024 Note HNO ID: [id number] Author: JACQUELIN SPAULDING MD Service: ? Author [...] Left side normal. Daughter has questions about terminal gauger use of Lasix and what are possible issues with group home use of Lasix if any. Noted darker colored urine, drinking less beer at previous visit. CMP was ordered. Past medical history, appointments, medications, allergies reviewed. Previous Medical History No past medical history on file. Previous Surgical History PAST SURGICAL HISTORY Procedure Laterality Date COLONOSCOPY N/A 02/22/2018 Dr. Kaye, [facility] EGD N/A 02/22/2018 Dr. Kaye at [facility] HERNIA REPAIR HX N/A 02/2018 hernia [...] - Stable Fo (more content not included)... [facility] 08-16-2024 Telephone encounter Note Patients contact ([place]) called asking if you wanted to postpone Melvin's upcoming appointment on 08/21? He is not having the Vascular test done until 08/24. Please advise, Thank you [facility] 08-16-2024 Miscellaneous Notes Patients contact ([place]) called asking if you wanted to postpone Melvin's upcoming appointment on 08/21? He is not having the Vascular test done until 08/24. Please advise, Thank you documented in this encounter [facility] 07-14-2024 History of Presen t illness [...] a long time. Has been seen by coffee sampler who suggested circulation test. Does not improve [...] Laterality Date COLONOSCOPY N/A 02/22/2018 Dr. Kaye, [facility] EGD N/A 02/22/2018 Dr. Kaye at [facility] HERNIA REPAIR HX N/A 02/2018 hernia [...] Past Histories independently gathered by the clinical technical support consultant and the remaining scribed note accurately describes [...] Chelo Graham MA documented in this encounter [facility] 07-14-2024 Note HNO ID: [id number] Author: JACQUELIN SPAULDING MD Service: ? Author [...] year of ending up in [place] due to food stuck in esophagus. Passed spontaneously. No EGD done.. Edema: Bilateral lower legs and feet that has been going on for a long time. Has been seen by coffee sampler who suggested circulation test. Does not improve [...] Laterality Date COLONOSCOPY N/A 02/22/2018 Dr. Kaye, [facility] EGD N/A 02/22/2018 Dr. Kaye at [facility] HERNIA REPAIR HX N/A 02/2018 hernia [...] Past Histories independently gathered by the clinical technical support consultant and the remaining scribed note accurately describes [...] 14, 2024 1:15 PM. Chelo Graham MA [facility] 07-10-2024 Telephone encounter Note Pts daughter [...] Pt sounds raspy and brings up phlegm. [facility] 07-10-2024 Miscellaneous Notes Pts daughter calls [...] brings up phlegm. documented in this encounter [facility] 05-08-2024 History of Presen t illness [...] YR, HIGH DOSE, TRIVALENT (FLUZONE HIGH-DOSE) - [employer] COVID-19 VACCINE AGE 12+ YR (COMIRNATY) - Receive in office today Follow up in 6 months. I agree with the Chief Complaint, ROS, and Past Histories independently gathered by the clinical technical support consultant and the remaining scribed note accurately describes [...] Flower Narvaez MA documented in this encounter [facility] 05-08-2024 Note HNO ID: [id number] Author: JACQUELIN SPAULDING MD Service: ? Author [...] MD as PCP - General (Family Medicine) [facility] - Podiatry, unable to [...] YR, HIGH DOSE, TRIVALENT (FLUZONE HIGH-DOSE) - PFIZER-BIOGrasprECH COVID-19 VACCINE AGE 12+ YR (COMIRNATY (more content not included)... [facility] 02-03-2024 History of Presen t illness Narrative Chief Complaint Patient presents with: Hospital Follow Up HPI Melvin Riddle is a 83 year old male who presents here today for an ED follow up. Pt was seen at [facility] ED on 01/28/24 due to a [...] feels the area is healing up nicely. [facility] ED: HPI - Fall History of [...] HISTORY 02/22/2018: COLONOSCOPY; N/A Comment: Dr. Kaye, [facility] 02/22/2018: EGD; N/A Comment: Dr. Kaye at [facility] 02/2018: HERNIA REPAIR HX; N/A Comment: [...] 09/09/2031 Pneumococcal Vaccine: 65+ Completed Data reviewed [facility] records scanned into pt's chart. ASSESSMENT/PLAN: 1. [...] Jacquelin Spaulding MD documented in this encounter [facility] 02-03-2024 Note HNO ID: [id number] Author: JACQUELIN SPAULDING MD Service: ? Author Type: Physician Type: Progress Notes Filed: 02/03/2024 10:44 Note Text: Chief Complaint Patient presents with: Hospital Follow Up HPI Mevlin Riddle is a 83 year old male who presents here today for an ED follow up. Pt was seen at [facility] ED on 01/28/24 due to a [...] feels the area is healing up nicely. [facility] ED: HPI - Fall History of [...] HISTORY 02/22/2018: COLONOSCOPY; N/A Comment: Dr. Kaye, [facility] 02/22/2018: EGD; N/A Comment: Dr. Kaye at [facility] 02/2018: HERNIA REPAIR HX; N/A Commen (more content not included)... [facility] 01-31-2024 Note HNO ID: [id number] Author: SP HALEY MA Service: ? Author Type: [employer] Salesperson Type: Progress Notes Filed: 01/31/2024 15:24 Note [...] taken: Patient scheduled: ER Follow-up 02/03/2024 in [facility] with JACQUELIN SPAULDING - Patient was seen in the Emergency Department (ED), Location: - Date: 01/28/24 , Reason for ED Visit: Fall @ home, TCM eligible through 02/11/24 05/08/2024 in [facility] with JACQUELIN SPAULDING - 6 month follow up memory, B12, 2023 AWV due. Please address due care gaps and HCC gap closure Navigation Signature: Sp Haley MA January 31, 2024 2:46 PM [facility] 01-31-2024 History of Presen t illness [...] taken: Patient scheduled: ER Follow-up 02/03/2024 in [facility] with JACQUELIN SPAULDING - Patient was seen in the Emergency Department (ED), Location: - Date: 01/28/24 , Reason for ED Visit: Fall @ home, TCM eligible through 02/11/24 05/08/2024 in [facility] with JACQUELIN SPAULDING - 6 month follow [...] seen in the Emergency Department (ED) Location: [place] Date: 01/28/24 Reason for ED Visit: Fall [...] provided with appropriate counseling: Yes Based on snuff box finisher, the following disposition is advised: No symptoms or symptoms present, not severe. Routed to: Navigation Team: PCP visit within 7 days YULISA Education Provided this Outreach: No Rasta Antonio RN January 31, 2024 2:30 PM documented in this encounter [facility] 01-31-2024 Note HNO ID: [id number] Author: RASTA ANTONIO RN Service: ? Author [...] seen in the Emergency Department (ED) Location: [place] Date: 01/28/24 Reason for ED Visit: Fall [...] provided with appropriate counseling: Yes Based on snuff box finisher, the following disposition is advised: No symptoms or symptoms present, not severe. Routed to: Navigation Team: PCP visit within 7 days YULISA Education Provided this Outreach: No Rasta Antonio RN January 31, 2024 2:30 PM [facility] 01-31-2024 Note Patient Outreach ([facility] MELVIN RIDDLE ([id number]) 1940 M Date Time Provider Department 01/31/24 [...] today walking the dog and did well Sailna would like a pcp f/u Outreach was [...] seen in the Emergency Department (ED) Location: [place] Date: 01/28/24 Reason for ED Visit: Fall [...] provided with appropriate counseling: Yes Based on snuff box finisher, the following disposition is advised: No symptoms [...] taken: Patient scheduled: ER Follow-up 02/03/2024 in [facility] with JACQUELIN SPAULDING - Patient was seen in the Emergency Department (ED), Location: - Date: 01/28/24 , Reason for ED Visit: Fall @ home, TCM eligible through 02/11/24 05/08/2024 in [facility] with JACQUELIN SPAULDING - 6 month [...] Encounter Status:Closed by SP HALEY on 01/31/24 [facility] 01-28-2024 Note HNO ID: [id number] Author: GABRIELLE MONTEZ APRN.CNP Service: ? Author [...] head Have referred to ED No charge [facility] 01-28-2024 History of Presen t illness [...] ED No charge documented in this encounter [facility] 01-21-2024 Telephone encounter Note The following [...] prescription at the pharmacy Pedro Munoz APRN.SAVAGE [facility] 01-21-2024 Miscellaneous Notes The following approved [...] valid prescription at the pharmacy Pedro Munoz APRN.IT HELP DESK ANALYST Prescription Refill Information The patient has been [...] 2024 2:00 PM documented in this encounter [facility] 01-21-2024 Telephone encounter Note Prescription Refill [...] Cabezas LPN January 21, 2024 2:00 PM [facility] 01-17-2024 Note HNO ID: [id number] Author: ERNESTO FENG MA Service: ? Author Type: Curt[employer] Draper[employer] Salesperson Type: Progress Notes Filed: 01/17/2024 12:16 Note Text: POPULATION HEALTH NAVIGATION OUTREACH Action/FYI Patient is on [facility] CURRENT [facility]OSTER Workbench list for below and [...] Feng MA January 17, 2024 8:29 AM [facility] 01-17-2024 History of Presen t illness Narrative POPULATION HEALTH NAVIGATION OUTREACH Action/FYI Patient is [facility] for below and needs appointment [...] 2024 8:29 AM documented in this encounter [facility] 01-17-2024 Note Patient Outreach (WILBER TNAV) MELVIN RIDDLE ([id number]) 1940 M Date Time Provider Department 01/17/24 ERNESTO FENG During your visit today, we recorded the following information about you: Ernesto Feng MA 01/17/2024 12:16 PM Signed POPULATION HEALTH NAVIGATION OUTREACH Action/FYI Patient is on [facility] CURRENT [facility]OST[facility] Workbenc list for below and needs appointment to address: Spirometry Shingrix Vaccine(1 of 2) RSV Vaccine(1 - 1-dose 60+ series) Advance Directive Discussion Covid-19 Vaccine( season) No results found for: HBA1C Patient due for: Medicare Annual Wellness Visit Advance Directives Attempted to reach patient, voicemail not set up yet, unable to leave message. Sent P2P-Next message. No HCC Unable to convert upcoming OV to AWV due to provider scheduled conflict. Updated upcoming OV notes Please address due care gaps and HCC gap closure Reason for Outreach Care Gap/HCC or Scheduling Wellness Visits Care Gaps due: Medicare Annual Wellness Visit Advance Directives Patient Contacted: Unable or unnecessary to reach patient: Unable to leave message Shattered Reality Interactivehart message sent Updated appointment notes Navigation Signature: Ernesto Feng MA January 17, 2024 8:29 AM Allergies As of Date: 01/17/2024 (No Known Allergies) Date Reviewed: 11/05/2023 Reviewed by: Chelo Graham MA - Fully Assessed Reason for Visit: Population Health Navigation Outreach [3910] [facility] [place] [facility] Prescriptions as of 01/17/2024 - cyanocobalamin [...] Encounter Status:Closed by ERNESTO FENG on 01/17/24 [facility] 11-09-2023 Telephone encounter Note Call to pt's daughter, Salina. Notified her of results below from Provider, verbalized understanding. Flower Narvaez MA [facility] 11-09-2023 Miscellaneous Notes Call to pt's daughter, Salina. Notified her of results below from Provider, verbalized understanding. Flower Narvaez MA Please notify patient's daughter that his labs all look fine. Jacquelin Spaulding MD documented in this encounter [facility] 11-08-2023 Telephone encounter Note Please notify patient's daughter that his labs all look fine. Jacquelin Spaulding MD [facility] 11-05-2023 History of Presen t illness [...] Laterality Date COLONOSCOPY N/A 02/22/2018 Dr. Kaye, [facility] EGD N/A 02/22/2018 Dr. Kaye at [facility] HERNIA REPAIR HX N/A 02/2018 hernia [...] Past Histories independently gathered by the clinical technical support consultant and the remaining scribed note accurately describes [...] Chelo Graham MA documented in this encounter [facility] 10-25-2023 History of Presen t illness Narrative POPULATION HEALTH NAVIGATION OUTREACH Action/FYI Patient is on [facility] CURRENT [facility]OST[facility] Workbench list for below and needs appointment to address: Spirometry Shingrix Vaccine(1 of 2) RSV Vaccine(1 - 1-dose 60+ series) Advance Directive Discussion Covid-19 Vaccine( season) No results found for: HBA1C Patient due for: Medicare Annual Wellness Visit Advance Directives Attempted to reach patient, voicemail not set up yet, unable to leave message. Sent P2P-Next message. Reason for Outreach Care Gap/HCC or Scheduling Wellness Visits Care Gaps due: Medicare Annual Wellness Visit Advance Directives Patient Contacted: Unable or unnecessary to reach patient: Unable to leave message MyChart message sent HCC related Navigation Signature: Ernesto Feng MA October 25, 2023 7:35 AM documented in this encounter [facility] 05-27-2023 Miscellaneous Notes Phoned daughter Salina and went over notes from Dr health management consultant, Salina said she found the medication and [...] to let you know pt was to [facility] ER on Wednesday05-22-23 and dx with COVID. Pt was given the medication Paxlovid. Pt took 3 days and now family can not find the last 2 days. Pt has dementia. Daughter asking what they need to do if anything. Please advise daughter. PCP/team unavailable. Routing message to health management consultant. Terri Alfaro LPN documented in this encounter [facility] 05-22-2023 Discharge summary Note Date/Time May 22, 2023 5:50pm [facility] Medical Records Department [address] [place] [address] Emergency Department Summary 05/22/23 MR#: [id number] Acct: [id number] Name: MELVIN RIDDLE Rep #:[id number] : 1940 82 From: Jonathan Bedoya DO [...] and a concern he has a bug. [facility] Medical History Abdominal pain COPD (chronic [...] 76.6 H Lymph % (Auto) 12.2 L Gratiot % (Auto) 10.4 H Eos % (Auto) [...] Clarity Clear Urine pH 6.0 Ur Specific Malmo 1.020 Urine Protein Negative Urine Glucose (UA) [...] your Primary Care Provider. Call [facility] ([phone]) or report to the closest Emergency Room. Call 911 if necessary. 05/22/231958 <Electronically signed by Jonathan Bedoya DO> Cosigner Signature (if applicable): CC: Dr. Jacquelin Spaulding MD ~ Signed [facility] Work Phone: 1(921) 862-619307-06-2023 Miscellaneous Notes* Telephone Encounter - Jacquelin Spaulding [...] short term to local pharmacy and then terminal gauger to home delivery pharmacy please. Also requesting a 90 day supply to home delivery pharmacy. Requested Prescriptions Pending Prescriptions Disp Refills memantine (NAMENDA) 5 mg tablet 180 tablet 3 Sig: Take 1 tablet by mouth twice daily. Please review and advise. Dione Pedro [facility] History of Present illness Narrative* Jacquelin [...] he feels. Stopped having his donut at [facility], now has some cookies he [...] to spring fever, no longer working at [employer], so is always trying to fine things [...] Laterality Date COLONOSCOPY N/A 02/22/2018 Dr. Kaye, [facility] EGD N/A 02/22/2018 Dr. Kaye at [facility] HERNIA REPAIR HX N/A 02/2018 hernia [...] Past Histories independently gathered by the clinical technical support consultant and the remaining scribed note accurately describes [...] PM. Chelo Graham Ma [facility] Miscellaneous Notes* Telephone Encounter - Catherine Crow MD - 06/30/2022 4:00 PM EST Unfortunately [employer] has been giving us issues about this code, when it is usually covered. I can change the code and resubmit. Thanks Catherine Crow MD * Telephone Encounter - Cristina Dominguez - 06/30/2022 2:59 PM EST Patient's daughter, Salina Ames, states that patient received a denial of coverage from [employer] for 'neuropsychological testing for 1.5 hours' that occurred on 2021. Patient had an appointment with Dr. Crow on that date for cognitive testing, and Salina is wondering if perhaps the testing was coded incorrectly. Salina states they have already paid the bill for the [facility] service on 03/20/22. I gave Salina our Billing Department phone number and am asking Dr. Crow to check the coding for that day's service. Salina's phone number is [phone]. She is asking if Dr. Crow re-submits the bill and how we proceed from here to fix this problem. Cristina Dominguez June 30, 2022 3:04 PM documented in this encounterGreen [facility] Hospital12-14-2022 Instructions* Patient Instructions* Marion Blair APRN.SAVAGE - 06/10/2022 8:52 AM EST Use steroid ointment to rash Recommend wearing undergarments/comfy pants May follow up with dermatology: [facility] in [place] if rash is not improving. Follow up as needed. documented in this encounterGreen [facility] Hospital12-14-2022 History of Present illness Narrative* Marion KoenigRODRIGO thomas.IT HELP DESK ANALYST - 06/10/2022 8:40 AM EST This is [...] Laterality Date COLONOSCOPY N/A 02/22/2018 Dr. Kaye, [facility] EGD N/A 02/22/2018 Dr. Kaye at [facility] HERNIA REPAIR HX N/A 02/2018 hernia [...] discussed and patient voices understanding. Marion Blair APRN.IT HELP DESK ANALYST This note was partially generated using LK FREEMAN voice recognition system. Note was reviewed for accuracy. There may be minor misspellings or grammar miscues with Ideaboveon voice recognition. documented in this encounterGreen Cross Hospital10-27-2022 Instructions* Patient Instructions* Marion Blair APRN.CNP [...] you with PAXLOVID for the treatment of urra-ku-givvnwqa coronavirus disease (COVID-19) caused by the SARS-CoV-2 [...] virus. COVID-19 illnesses have ranged from very ciwe-kn-oemzde, including illness resulting in . While information [...] is an investigational medicine used to treat qryz-fd-ssdnstnl COVID-19 in adults and children [12 years [...] of using PAXLOVID to treat people with npbf-ra-nxkkgqfh COVID-19. The FDA has authorized the emergency use of PAXLOVID for the treatment of anzc-xt-nrpjfezs COVID-19in adults and children [12 years of [...] the medicines you take, including prescription and lldw-zjd-xmpaxnm medicines, vitamins, and herbal supplements. Some medicines [...] oral midazolam Apalutamide Carbamazepine, phenobarbital, phenytoin Rifampin Auberry s Wort (hypericum perforatum) Taking PAXLOVID with [...] (remdesivir) is FDA-approved for the treatment of ephd-ga-tlvsmkwt COVID-19 in certain adults and children. Talk with your doctor to see if Veklury is appropriate for you. Like PAXLOVID, FDA may also allow for the emergency use of other medicines to treat people with COVID-19. Go to https://www.fda.gov/mpfgrlggo-dsnljltmtneh-wciggpezjol/pxu-jrzmp-kjezvputjv-and- policy-framework/ncvqvrlap-szm-ggnzipahotbhl for information on the emergency use of [...] if I am or ? There is synoptic meteorologist treating women or mothers with PAXLOVID. For [...] not go away. Report side effects to [employer] at www.fda.gov/[employer] Security or call 9-336-APU0825 or you can reportside effects to [employer] at the contact information provided below. Website Fax number Telephone number wwwDeliRadio How should I store PAXLOVID? Store PAXLOVID [...] (EUA). The EUA is supported by a Diamond Powder Technician of Health and Human Service (HHS) declaration that circumstances exist to justify the emergency use of drugs and biological productsduring the COVID-19 pandemic. PAXLOVID for the treatment of kzvi-xy-jqudiycf COVID-19 in adults and children [12 years [...] telephone number provided below. Website Telephone number wwwFashion GPSWGIAO62gpmoKb.com (0-483-V98-PACK) You can also go to www.[employer] or call for more information. Pfizer Distributed by [employer] [place] [address] LAB-1494-2.1 Revised: 12 September 2021 documented in this encounterGreen Cross Hospital10-27-2022 History of Present illness Narrative* Marion [...] agrees to the visit: Yes Patient Location: [facility] Melvin Riddle is a 81 year old male who is contacted today for a phone visit This is an establishedpatient of Dr. Jacquelin Spaulding MD Reports: Covid +, was seen in [facility] care for cold symptoms. Having chest/sinus congestion, [...] Laterality Date COLONOSCOPY N/A 02/22/2018 Dr. Kaye, [facility] EGD N/A 02/22/2018 Dr. Kaye at [facility] HERNIA REPAIR HX N/A 02/2018 hernia [...] minutes Nirmatrelvir/Ritonavir (Paxlovid) Eligibility and Patient Discussion [facility] Formulary Restriction Criteria: Adult outpatients 18 [...] APRN.CNP This note was partially generated using LK FREEMAN voice recognition system. Note was reviewed for accuracy. There may be minor misspellings or grammar miscues with LK FREEMAN voice recognition. documented in this encounterGreen Cross Hospital10-26-2022 History of Present illness Narrative* Waqas [...] Laterality Date COLONOSCOPY N/A 02/22/2018 Dr. Kaye, [facility] EGD N/A 02/22/2018 Dr. Kaye at [facility] HERNIA REPAIR HX N/A 02/2018 hernia [...] paxlovid if positive, setting up for [facility] care. -if positive for flu tx with tamiflu. - COVID WITH FLUA+B, ROUTINE Waqas Olmos APRN.CNP documented in this encounterGreen Cross Hospital10-26-2022 Instructions* Patient Instructions* Waqas Olmos APRN.CNP [...] or concerning to you. documented in this encounterGreen Cross Hospital10-25-2022 History of Present illness Narrative* Vikas [...] Laterality Date COLONOSCOPY N/A 02/22/2018 Dr. Kaye, [facility] EGD N/A 02/22/2018 Dr. Kaye at [facility] HERNIA REPAIR HX N/A 02/2018 hernia [...] with worsening/changing symptoms and treat symptomatically. Vikas vEerett MD documented in this encounterGreen Cross Hospital10-14-2022 NoteHNO ID: [id number] Author: Catherine Crow MD Service: ? Author Type: Physician Type: Progress Notes Filed: 04/10/2022 2:38 PM Note Text: Catherine Crow MD [facility] [address] [place] [address] AMBULATORY TELEPHONE VISIT GERIATRIC MEDICINE FOLLOW UP [...] Laterality Date COLONOSCOPY N/A 02/22/2018 Dr. Kaye, [facility] EGD N/A 02/22/2018 Dr. Kaye at [facility] HERNIA REPAIR HX N/A 02/2018 hernia [...] of care. CATHERINE CROW MD GERIATRIC MEDICINE [facility] Discussed the above with the patient using shared decision making. The patient is in agreement with the diagnostic and treatment plans. This note was partially generated using LK FREEMAN voice recognition system, and there may be some incorrect words, spellings, and punctuation that were not noted in checking the note before saving.[facility] 04-10-2022 History of Present illness Narrative* Catherine Crwo MD - 04/10/2022 2:28 PM EDT Images from the original note were not included. Catherine Crow MD [facility] [address] [facility] [facility] [address] [place] [address] AMBULATORY TELEPHONE VISIT GERIATRIC MEDICINE FOLLOW UP [...] Laterality Date COLONOSCOPY N/A 02/22/2018 Dr. Kaye, [facility] EGD N/A 02/22/2018 Dr. Kaye at [facility] HERNIA REPAIR HX N/A 02/2018 hernia [...] of care. CATHERINE CROW MD GERIATRIC MEDICINE [facility] Discussed the above with the patient using shared decision making. The patient is in agreement with the diagnostic and treatment plans. This note was partially generated using LK FREEMAN voice recognition system, and there may be some incorrect words, spellings, and punctuation that were not noted in checking the note before saving. documented in this encounterGreen Cross Hospital10-11-2022 Miscellaneous Notes* Telephone Encounter - Catherine Crow MD - 04/07/2022 2:59 PM EDT Yes it can. We will discuss at his next office visit. Catherine Crow MD * Telephone Encounter - Arleis Bee LPN - 04/07/2022 11:57 AM EDT [...] blood work is normal. documented in this encounterGreen Cross Hospital09-23-2022 NoteHNO ID: [id number] Author: Catherine Crow MD Service: ? Author Type: Physician Type: Progress Notes Filed: 04/20/2022 10:22 AM Note Text: Catherine Crow MD [facility] [address] [place] [address] COMPREHENSIVE GERIATRICS ASSESSMENT Patient presents with: Geriatric [...] more steeply. 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 He needs a shai at work to help guide him if he needs. Does not take any medications. Has forgotten to turn off stove. Per his last PCP note, he also did get lost driving. Home: lives at home with his daughter Social Engagement: pt works at [employer] in the [employer] department Hobbies: walking the dogs. Likes to [...] been discussed? Yes Is a power of district attorney in place for financial needs? Yes Is a power of district attorney in place for health care decisions? [...] A, Transportation:D, Medications: D, Handle Finances: A. ([place] scale): 0 Mobility Aid: None Falls: .: Falls in the last 12 months: Positive: 1 fall. If + falls: Late Spring/Early Summer - in the garage was bending over trying to grab something after he was leaning over to flower picker the beer can and ended up passing out when he stood back up. He ended up having a laceration on his forehead and needed sutures. No LOC. (?Vasovagal?) Safety Assessment Checklist Questions (Yes/ No) 1. Is the patient still driving? Yes - no issues with familiar places. He do (more content not included)...[facility]09-23-2022 History of Present illness Narrative* Catherine Crow MD - 03/20/2022 9:20 AM EDT Images from the original note were not included. Catherine Crow MD [facility] [address] [place] [address] COMPREHENSIVE GERIATRICS ASSESSMENT Patient presents with: Geriatric [...] more steeply. 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 He needs a shai at work to help guide him if he needs. Does not take any medications. Has forgotten to turn off stove. Per his last PCP note, he also did get lost driving. Home: lives at home with his daughter Social Engagement: pt works at [employer] in the [employer] department Hobbies: walking the dogs. Likes to [...] been discussed? Yes Is a power of district attorney in place for financial needs? Yes Is a power of district attorney in place for health care decisions? 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 No pertinent past medical history. PAST SURGICAL HISTORY Procedure Laterality Date COLONOSCOPY N/A 02/22/2018 Dr. Kaye, [facility] EGD N/A 02/22/2018 Dr. Kaye at [facility] HERNIA REPAIR HX N/A 02/2018 hernia [...] of care. CATHERINE CROW MD GERIATRIC MEDICINE [facility] Discussed the above with the patient using shared decision making. The patient is in agreement with the diagnostic and treatment plans. This note was partially generated using LK FREEMAN voice recognition system, and there may be some incorrect words, spellings, and punctuation that were not noted in checking the note before saving. documented in this encounterGreen Cross Hospital09-02-2022 History of Present illness Narrative* Jacquelin [...] what day it is. 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 His daughter says they do not let him work by himself. Complains of varicose veins; does not like how they look. Uses compression stockings in the winter. Past medical history, appointments, medications, allergies reviewed. Previous Medical History No past medical history on file. Previous Surgical History PAST SURGICAL HISTORY Procedure Laterality Date COLONOSCOPY N/A 02/22/2018 Dr. Kaye, [facility] EGD N/A 02/22/2018 Dr. Kaye at [facility] HERNIA REPAIR HX N/A 02/2018 hernia [...] Past Histories independently gathered by the clinical technical support consultant and the remaining scribed note accurately describes my personal service to the patient. Medical Decision Making: Problems: Moderate: New problem with uncertain prognosis Risk: Low: Low risk from testing/treatment Medical Decision Making Level: 3 - Low Jacquelin Spaulding MD The documentation for this note was completed by Chelo Graham Ma acting as scribe for Jacquelin Sapulding MD. February 27, 2022 4:12 PM. Chelo Graham Ma documented in this encounterGreen [facility]* Diagnosis Memory deficit- Primary Memory loss Varicose veins of both lower extremities, unspecified whether complicated documented in this [facility]* Diagnosis Mild late onset Alzh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, psychotic disturbance, mood disturbance, or anxiety (HCC)- Primary [facility]* Diagnosis Mild dementia- Primary Dementia, unspecified, without behavioral disturbance Memory deficit Memory loss Vitamin D deficiency Unspecified vitamin D deficiency Mild late onset Alzheimer's dementia, unspecified whether behavioral, psychotic, or mood disturbance or anxiety (HCC) [facility]* Diagnosis Rash- Primary Rash and other nonspecific skin eruption Acute cough [facility]* Diagnosis URI, acute- Primary Acute upper respiratory infections of unspecified site documented in this encounter [facility] note* Diagnosis COVID-19- Primary documented in this encounter [facility] note* Diagnosis Contact dermatitis, unspecified contact dermatitis type, unspecified trigger- Primary Mild dementia Dementia, unspecified, without behavioral disturbance Mild Alzheimer's dementia, unspecified timing of dementia onset, unspecified whether behavioral, psychotic, or mood disturbance or anxiety (HCC) documented in this encounter [facility] note* Diagnosis Mild dementia, unspecified dementia type, unspecified whether behavioral, psychotic, or mood disturbance or anxiety (HCC) Pulmonary emphysema, unspecified emphysema type (HCC) Vitamin B12 deficiency Other B-complex deficiencies Sleeping difficulties Sleep disturbance, unspecified Excessive drinking alcohol Alcohol abuse, unspecified [facility]* Diagnosis Mild dementia (HCC) Dementia, unspecified, without behavioral disturbance documented in this encounter [facility] noteNo assessment information availableWAultman [facility] Work Phone: Evaluation note* Diagnosis Mild dementia (HCC)- Primary Dementia, unspecified, without behavioral disturbance Vitamin B12 deficiency Other B-complex deficiencies Mild dementia without behavioral disturbance, psychotic disturbance, mood disturbance, or anxiety, unspecified dementia type (HCC) documented in this encounter [facility] note* Diagnosis Mild dementia (HCC) Dementia, unspecified, without behavioral disturbance Vitamin B12 deficiency Other B-complex deficiencies documented in this encounter [facility] note* Diagnosis Fall, initial encounter- Primary documented in this encounter [facility] note* Diagnosis Fall, sequela- Primary Mild dementia without behavioral disturbance, psychotic disturbance, mood disturbance, or anxiety, unspecified dementia type (HCC) documented in this encounter [facility] note* Diagnosis Encounter for Medicare [...] single bacterial disease documented in this encounter [facility] note* Diagnosis Bilateral leg edema- Primary Edema Mild dementia without behavioral disturbance, psychotic disturbance, mood disturbance, or anxiety, unspecified dementia type (HCC) Episode of gagging Other diseases of pharynx, not elsewhere classified Esophageal dysphagia Dysphagia, pharyngoesophageal phase [facility] Diagnosis Bilateral leg edema- Primary Edema Small vessel disease (HCC) Peripheral vascular disease, unspecified Episode of gagging Other diseases of pharynx, not elsewhere classified Esophageal dysphagia Dysphagia, pharyngoesophageal phase Mild dementia without behavioral disturbance, psychotic disturbance, mood disturbance, or anxiety, unspecified dementia type (HCC) [facility] Diagnosis Esophageal dysphagia Dysphagia, pharyngoesophageal phase documented in this encounter [facility] note* Diagnosis Moderate dementia, unspecified dementia type, unspecified whether behavioral, psychotic, or mood disturbance or anxiety (HCC)- Primary Need for vaccination Need for prophylactic vaccination and inoculation against unspecified single disease Vitamin B12 deficiency Other B-complex deficiencies Bilateral leg edema Edema documented in this encounter [facility] for referral (narrative)* Diagnostic Procedure Only (Routine) - Authorized Specialty Diagnoses / Procedures Referred By Contac t Referred To Contact XR IMAGING Diagnoses Esophageal dysphagia Procedures XR ESOPHAGRAM RADIOLOGIC EXAM ESOPHAGUS SINGLE CONTRAST STUDY Jacquelin Spaulding MD [address] [place] [address] [place] [address] Referral ID Status Reason Start Date Expiration Date Visits Requested Visits Authorized [id number] Authorized Auto-Generat ed Referral 07/14/2024 08/13/2025 1 1 * Outpatient Procedure (Routine) - Authorized Specialty Diagnoses / Procedures Referred By Contac t Referred To Contact [facility] Diagnoses Bilateral leg edema Procedures PVR ANK PRESS BENNY VAS LAB NON-INVAS PHYSIOLOGIC STD EXTREMITY ART 2 LEVEL Jacquelin Spaulding MD [address] [place] [address] [facility] [address] [place] [address] Referral ID Status Reason Start Date Expiration Date Visits Requested Visits Authorized [id number] Authorized Auto-Generat ed Referral 07/14/2024 07/14/2025 1 1 [facility] for visit Narrative* Diagnostic Procedure Only (Routine) - Closed Specialty Diagnoses / Procedures Referred By Jesus crystal Referred To Contact XR IMAGING Diagnoses Esophageal dysphagia Procedures XR ESOPHAGRAM RADIOLOGIC EXAM ESOPHAGUS SINGLE CONTRAST STUDY Jacquelin Spaulding MD [address] [place] [address] Phone: tel: fax: [facility] [place] [id number] Referral ID Status Reason Start Date Expiration Date V isits Requested Visits Authorized [id number] Closed Auto-Generate d Referral 07/14/2024 08/13/2025 1 1 [facility] Reason for Referral Specialty Diagnoses / Procedures Referred By Jesus crystal Referred To Contact Gerontology Diagnoses Memory deficit Procedures CONSULT TO GERIATRICS OFFICE/OUTPATIENT [facility] MDM 60-74 MINUTES Jacquelin Spaulding MD [address] [place] [address] Referral ID Status Reason Start Date Expiration Date Visits Requested Visits Authorized [id number] Pending Review PCP Requested Referral 02/27/2022 02/27/2023 1 1 Specialty Diagnoses / Procedures Referred By Jesus crystal Referred To Contact Dermatology Diagnoses Contact dermatitis, unspecified contact dermatitis type, unspecified trigger Procedures CONSULT TO DERMATOLOGY Marion Blair APRN.CNP [address] [place] [address] Referral ID Status Reason Start Date Expiration Date Visits Requested Visits Authorized [id number] Ref Not Required PCP Requested Referral 2 06/10/2023 1 1 Summary Purpose Family History No Family History Records Found Relationship Condition Age at Onset Recorded Date/T chay mother Myocardial infarction Unknown brother Myocardial infarction Unknown father Pulmonary emphysema Unknown Advance Directives No Advanced Directives Records Found Advance Directive Response Recorded Date/ Time Living Will No September 08, 2021 5:36am Power of Digital Associate Media Director No September 08 5:36am Health Concerns Infection [...] or prosecute any alcohol or drug abuse patient.[facility] the event this information is protected by the Federal Confidentiality of Alcohol and Drug Abuse Patient Records regulations: The Federal rules restrict any use of the information to criminally investigate or prosecute any alcohol or drug abuse patient.[facility] the event this information is protected by the Federal Confidentiality of Alcohol and Drug Abuse Patient Records regulations: The Federal rules restrict any use of the information to criminally investigate or prosecute any alcohol or drug abuse patient.[facility] the event this information is protected by the Federal Confidentiality of Alcohol and Drug Abuse Patient Records regulations: The Federal rules restrict any use of the information to criminally investigate or prosecute any alcohol or drug abuse patient.[facility] the event this information is protected by the Federal Confidentiality of Alcohol and Drug Abuse Patient Records regulations: The Federal rules restrict any use of the information to criminally investigate or prosecute any alcohol or drug abuse patient.[facility] the event this information is protected by the Federal Confidentiality of Alcohol and Drug Abuse Patient Records regulations: The Federal rules restrict any use of the information to criminally investigate or prosecute any alcohol or drug abuse patient.[facility] the event this information is protected by the Federal Confidentiality of Alcohol and Drug Abuse Patient Records regulations: The Federal rules restrict any use of the information to criminally investigate or prosecute any alcohol or drug abuse patient.[facility] the event this information is protected by the Federal Confidentiality of Alcohol and Drug Abuse Patient Records regulations: The Federal rules restrict any use of the information to criminally investigate or prosecute any alcohol or drug abuse patient.[facility] the event this information is protected by the Federal Confidentiality of Alcohol and Drug Abuse Patient Records regulations: The Federal rules restrict any use of the information to criminally investigate or prosecute any alcohol or drug abuse patient.[facility] the event this information is protected by the Federal Confidentiality of Alcohol and Drug Abuse Patient Records regulations: The Federal rules restrict any use of the information to criminally investigate or prosecute any alcohol or drug abuse patient.[facility] the event this information is protected by the Federal Confidentiality of Alcohol and Drug Abuse Patient Records regulations: The Federal rules restrict any use of the information to criminally investigate or prosecute any alcohol or drug abuse patient.[facility] the event this information is protected by the Federal Confidentiality of Alcohol and Drug Abuse Patient Records regulations: The Federal rules restrict any use of the information to criminally investigate or prosecute any alcohol or drug abuse patient.[facility] the event this information is protected by the Federal Confidentiality of Alcohol and Drug Abuse Patient Records regulations: The Federal rules restrict any use of the information to criminally investigate or prosecute any alcohol or drug abuse patient.[facility] the event this information is protected by the Federal Confidentiality of Alcohol and Drug Abuse Patient Records regulations: The Federal rules restrict any use of the information to criminally investigate or prosecute any alcohol or drug abuse patient.[facility] the event this information is protected by the Federal Confidentiality of Alcohol and Drug Abuse Patient Records regulations: The Federal rules restrict any use of the information to criminally investigate or prosecute any alcohol or drug abuse patient.[facility] the event this information is protected by the Federal Confidentiality of Alcohol and Drug Abuse Patient Records regulations: The Federal rules restrict any use of the information to criminally investigate or prosecute any alcohol or drug abuse patient.[facility] the event this information is protected by the Federal Confidentiality of Alcohol and Drug Abuse Patient Records regulations: The Federal rules restrict any use of the information to criminally investigate or prosecute any alcohol or drug abuse patient.[facility] the event this information is protected by the Federal Confidentiality of Alcohol and Drug Abuse Patient Records regulations: The Federal rules restrict any use of the information to criminally investigate or prosecute any alcohol or drug abuse patient.[facility] the event this information is protected by the Federal Confidentiality of Alcohol and Drug Abuse Patient Records regulations: The Federal rules restrict any use of the information to criminally investigate or prosecute any alcohol or drug abuse patient.[facility] Hospital[facility] the event this information is protected by the Federal Confidentiality of Alcohol and Drug Abuse Patient Records regulations: The Federal rules restrict any use of the information to criminally investigate or prosecute any alcohol or drug abuse patient.[facility] the event this information is protected by the Federal Confidentiality of Alcohol and Drug Abuse Patient Records regulations: The Federal rules restrict any use of the information to criminally investigate or prosecute any alcohol or drug abuse patient.[facility] the event this information is protected by the Federal Confidentiality of Alcohol and Drug Abuse Patient Records regulations: The Federal rules restrict any use of the information to criminally investigate or prosecute any alcohol or drug abuse patient.[facility] the event this information is protected by the Federal Confidentiality of Alcohol and Drug Abuse Patient Records regulations: The Federal rules restrict any use of the information to criminally investigate or prosecute any alcohol or drug abuse patient.[facility] the event this information is protected by the Federal Confidentiality of Alcohol and Drug Abuse Patient Records regulations: The Federal rules restrict any use of the information to criminally investigate or prosecute any alcohol or drug abuse patient.[facility] the event this information is protected by the Federal Confidentiality of Alcohol and Drug Abuse Patient Records regulations: The Federal rules restrict any use of the information to criminally investigate or prosecute any alcohol or drug abuse patient.[facility] HospitalIn the event this information is protected by the Federal Confidentiality of Alcohol and Drug Abuse Patient Records regulations: The Federal rules restrict any use of the information to criminally investigate or prosecute any alcohol or drug abuse patient.[facility] HospitalIn the event this information is protected by the Federal Confidentiality of Alcohol and Drug Abuse Patient Records regulations: The Federal rules restrict any use of the information to criminally investigate or prosecute any alcohol or drug abuse patient.[facility] Hospital[facility] the event this information is protected by the Federal Confidentiality of Alcohol and Drug Abuse Patient Records regulations: The Federal rules restrict any use of the information to criminally investigate or prosecute any alcohol or drug abuse patient.[facility] Reason for Visit (unrecogniz ed section and content) Reason Comments Follow Up Cognitive issues Reason Comments Results Reason Comments Follow Up Memory Loss Reason Comments Geriatric Assessment Back Pain Specialty Diagnoses / Procedures Referred By Jesus crystal Referred To Contact Gerontology Diagnoses Memory deficit Procedures CONSULT TO GERIATRICS OFFICE/OUTPATIENT [facility] MDM 60-74 MINUTES Jacquelin Spaulding MD [address] [place] [address] Referral ID Status Reason Start Date Expiration Date Visits Requested Visits Authorized [id number] Pending Review PCP Requested Referral 02/27/2022 02/27/2023 [...] Comments Population Health Navigation Outreach 10/25/2023 [facility] CURRENT ROSTER workbenc - AWV, Care gaps, HCC gap closure - [place] [facility] Reason Comments 6 Month Exam Reason [...] Care Teams (unrecognized sec tion and content) Director Hair Relationship Specialty Start Date End Date Jacquelin Spaulding MD [address] [facility] [place] [address] PCP - General Family Practice 10/12/17 Director Hair Relationship Specialty Start Date End Date Jacquelin Spaulding MD [address] [place] [address] PCP - General Family Medicine 10/12/17 Director Hair Relationship Specialty Start Date End Date Jacquelin Spaulding MD [address] [place] [address] PCP - General Family Medicine 10/12/17 Director Hair Relationship Specialty Start Date End Date Jacquelin Spaulding MD [address] [place] [address] PCP - General Family Medicine 10/12/17 Director Hair Relationship Specialty Start Date End Date Jacquelin Spaulding MD [address] [place] [address] PCP - General Family Medicine 10/12/17 Director Hair Relationship Specialty Start Date End Date Jacquelin Spaulding MD [address] [place] [address] PCP - General Family Medicine 10/12/17 Director Hair Relationship Specialty Start Date End Date Jacquelin Spaulding MD [address] [place] [address] PCP - General Family Medicine 10/12/17 Director Hair Relationship Specialty Start Date End Date Jacquelin Spaulding MD [address] [place] [address] PCP - General Family Medicine 10/12/17 Director Hair Relationship Specialty Start Date End Date Jacquelin Spaulding MD [address] [place] [address] PCP - General Family Medicine 10/12/17 Director Hair Relationship Specialty Start Date End Date Jacquelin Spaulding MD [address] [place] [address] PCP - General Family Medicine 10/12/17 Team Status: Active Member Role Status Dates Dr. Jacquelin Spaulding MD Family Provider Active Dr. Jacquelin Spaulding MD Primary Care Provider Active Team Status: Inactive Member Role Status Dates Dr. Jacquelin Spaulding MD Primary Care Provider Active Dr. Jonathan Bedoya DO Emergency Provider Active Director Hair Relationship Specialty Start Date End Date Jacquelin Spaulding MD [address] [place] [place] [address] PCP - General Family Medicine 10/12/17 Director Hair Relationship Specialty Start Date End Date Jacquelin Spaulding MD [address] [place] [place] [address] PCP - General Family Medicine 10/12/17 Director Hair Relationship Specialty Start Date End Date Jacquelin Spaulding MD [address] [place] [address] PCP - General Family Medicine 10/12/17 Director Hair Relationship Specialty Start Date End Date Jacquelin Spaulding MD [address] [place] [address] PCP - General Family Medicine 10/12/17 Director Hair Relationship Specialty Start Date End Date Jacquelin Spaulding MD [address] [place] [address] PCP - General Family Medicine 10/12/17 Director Hair Relationship Specialty Start Date End Date Jacquelin Spaulding MD [address] [place] [address] PCP - General Family Medicine 10/12/17 Director Hair Relationship Specialty Start Date End Date Jacquelin Spaulding MD [address] [place] [address] PCP - General Family Medicine 10/12/17 Director Hair Relationship Specialty Start Date End Date Jacquelin Spaulding MD [address] [place] [address] PCP - General Family Medicine 10/12/17 Director Hair Relationship Specialty Start Date End Date Jacquelin Spaulding MD [address] [place] [address] PCP - General Family Medicine 10/12/17 Marion Blair APRN.IT HELP DESK ANALYST [address] [place] [address] [facility] 06/04/24 Pedro Munoz APRN.IT HELP DESK ANALYST [address] [place] [address] [facility] 06/13/24 Director Hair Relationship Specialty Start Date End Date Jacquelin Spaulding MD [address] [place] [address] PCP - General Family Medicine 10/12/17 Marion Blair APRN.IT HELP DESK ANALYST [address] [place] [address] [facility] 06/04/24 Pedro Munoz APRN.IT HELP DESK ANALYST [address] [place] [address] [facility] 06/13/24 Director Hair Relationship Specialty Start Date End Date Jacquelin Spaulding MD [address] [place] [address] PCP - General Family Medicine 10/12/17 Marion Blair APRN.IT HELP DESK ANALYST [address] [place] [address] [facility] 06/04/24 Pedro Munoz APRN.IT HELP DESK ANALYST [address] [place] [address] [facility] 06/13/24 Director Hair Relationship Specialty Start Date End Date Jacquelin Spaulding MD [address] [place] [address] PCP - General Family Medicine 10/12/17 Marion Blair APRN.IT HELP DESK ANALYST [address] [place] [address] [facility] 06/04/24 Pedro Munoz APRN.IT HELP DESK ANALYST [address] [place] [address] [facility] 06/13/24 Director Hair Relationship Specialty Start Date End Date Jacquelin Spaulding MD [address] [place] [address] PCP - General Family Medicine 10/12/17 Marion Blair APRN.IT HELP DESK ANALYST [address] [place] [address] [facility] 06/04/24 Pedro Munoz APRN.IT HELP DESK ANALYST [address] [place] [address] [facility] 06/13/24 Director Hair Relationship Specialty Start Date End Date Jacquelin Spaulding MD [address] [place], [place] [address] [phone] PCP - General Family Medicine 10/12/17 Marion Blair, RODRIGO.IT HELP DESK ANALYST [address] [place] [address] [facility] 06/04/24 Pedro Munoz, RODRIGO.IT HELP DESK ANALYST [address] [place] [address] [facility] 06/13/24 Director Hair Relationship Specialty Start Date End Date Jacquelin Spaulding MD [address] [place] [address] PCP - General Family Medicine 10/12/17 Pedro Munoz, [employer] CONSULTANT.IT HELP DESK ANALYST [address] [place] [address] [facility] 06/13/24 (unrecognized sect ion and content) No Status Records FoundNo Status Records FoundNo Status Records FoundNo Status Records Found INFORMATION SOURCE (unrecogn ized section and content) DATE CREATED AUTHOR 04/21/2022 [facility] DATE CREATED AUTHOR AUTHOR'S ORGANIZ ATION 07/17/2024 [facility] DATE CREATED AUTHOR AUTHOR'S ORGANIZ ATION 10/06/2024 [facility] DATE CREATED AUTHOR AUTHOR'S AZIZA SCHULTZ 11/10/2024 [facility] Goals (unrecognized section and content) Goals [...] BE BASED ON THE PRIMARY CLINICAL RECORDS. [facility] [employer] [facility]. provides no warranty or guarantee of the accuracy or completeness of information in this document.
--- NOTE | 2025-01-07 21:42 | PRE.ANES_ITS ---
ASA Classification* ASA Classification ASA Classification: 2 and E Assessment & Plan Anesthesia* Anesthesia Assessment Anesthesia Assessment: Discussed sedation and/or anesthesia options, risks, benefits, and alternatives with patient/parents/legal guardian/POA. Questions invited. The patient/parents/legal guardian/POA seems to understand and agrees to proceed with anesthesia plan. Reviewed the physical assessment, medical history, allergy history and patient home medications list prior to surgery/procedure/anesthetic and documented any changes. Performed airway and anesthesia risk assessments. Anesthesia Type Anesthesia Type: MAC Anesthesia Focused Assessment* Temperature: 98 F Pulse Rate: 78 Blood Pressure: 148/77 Respiratory Rate: 16 Pulse Ox: 98 Airway Assessment Mouth opens: >3 cm Mallampati Score: II Labs Anesthesia Preop lab: CBC WBC 7.4 K/mm3 (4.4-11.0) 01/28/24 11:01/28/24 RBC 4.59 M/mm3 (4.6-6.2) L 01/28/24 11:25 01/28/24 Hgb 14.6 g/dL (13.0-16.5) 01/28/24 11:25 01/28/24 Hct 42.9 % (40-54) 01/28/24 11:25 01/28/24 Plt Count 202 K/mm3 (150-450) 01/28/24 11:25 01/28/24 CHEMISTRY Potassium 4.4 mmol/L (3.5-5.1) 01/28/24 11:25 01/28/24 Sodium 138 mmol/L (136-145) 01/28/24 11:25 01/28/24 BUN 8 mg/dL (7-18) 01/28/24 11:25 01/28/24 Creatinine 0.76 mg/dL (0.70-1.30) 01/28/24 11:01/28/24 Glucose 103 mg/dL (74-106) 01/28/24 11:25 01/28/24 COAG Pre-Assessment Diagnosis/Proposed Procedure Planned Operative Procedure(s): EGD, Remove FB esophogus Anesthesia History 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 When Was Last Pacemaker Check QUESTION #4 FULL TEXT: You/Your Family Experience fever (hyperthermia) with Anesthesia Last Oral Intake Last Oral intake: Last Oral Intake NPO since Meds taken in AM with sips of water? Meds patient instructed to take am of surgery PONV PONV - machine precision engraver: PONV - machine precision engraver Female HX of Motion Sickness HX of N/V After Surgery Non-Smoker Duration of Surgery greater than 60 minutes Number of Risk Factors PONV Score Height & Weight Height & Weight: Anesthesia: Height & Weight Height 5 ft 6 in 01/07/25 20:20 Weight: 76.657 kg 01/07/25 20:20 Body Mass Index (BMI) 27.2 01/07/25 20:20 Respiratory Assessment Respiratory Assessment - machine precision engraver: Respiratory Tract Infection Hx - machine precision engraver Hx Respiratory Tract Infection No 03/17/18 13:47 STOP Sleep Apnea STOP Sleep Apnea - machine precision engraver: STOP Sleep Apnea - machine precision engraver Hx Hypertension No 09/07/19 13:38 Hx Sleep Apnea No 09/07/19 13:38 CPAP BIPAP Do you snore loudly (louder than talking or can be heard Do you often feel tired/ fatigued/ sleepy during daytime? Has anyone observed you stop breathing during sleep? STOP Results QUESTION #5 FULL TEXT : Do you snore loudly (louder than talking or can be heard through closed doors)? Tobacco Use History Tobacco Use History - machine precision engraver: Tobacco Use History - machine precision engraver Tobacco Use Smoking Status Former smoker 01/07/25 20:26 Hx Tobacco Use No 09/07/19 13:38 Years Smoking Packs Smoked per Day Smoking Cessation Date was No - quit smoking greater 01/07/25 20:26 within the last 15 years than 15 years ago Hx Smoking Cessation Date 06/28/01 01/07/25 20:26 Hx Smoking Cessation No 01/07/25 20:26 Counseling Hematologic Medial History Hematologic Hx - machine precision engraver: Hematologic Medical Hx - documentation coordinator Hx of Blood Transfusion Hx of Transfusion in last 3 Months Date of Last Transfusion (if within last 3 months) Ever experience any problems with transfusion(s)? Specify any problems Hx of Preganancy in last 3 Months Nurse Filling Out Transfusion & Questions: Date: Time: Patient unable to answer at this time (ie. confused, unrespo /Reproduction History /Reproductive History - machine precision engraver: /Reproductive Hx- machine precision engraver Hx Now Gestational Age (in weeks): EDC: Hx Hx Para Hx Section SAB PFSH Medical History Right inguinal hernia History of inguinal hernia Abdominal pain COPD (chronic obstructive pulmonary disease) Pulmonary fibrosis Home Medications ?Medication ?Instructions ?Recorded ?Last Taken ?Type memantine 5 mg tablet 5 mg PO DAILY 05/22/23 Unkno wn History nirmatrelvir 300 mg (150 mg See Rx Instructions PO .CO MPLEX 05/22/23 Unknown Rx x2)-ritonavir 100 mg tablet,dose #30 tabs pack (Paxlovid) ondansetron 4 mg disintegrating 4 mg PO Q8H PRN PRN Na usea #14 tabs 05/22/23 Unknown Rx tablet Allergy/AdvReac Type Severity Reaction Status Date / Time No Known Allergies Allergy Verified 01/07/25 20:20 Family History Mother Myocardial infarction Brother Myocardial infarction Father Emphysema of lung Surgical History History of right inguinal hernia repair (~03/24/18) History of tooth extraction Social History Smoking Status: Former smoker Review of Systems (Anesthesia) ROS Narrative System reviewed and no additional complaints, except as documented.
--- NOTE | 2025-01-07 22:01 | HP.PCM.SX_ITS ---
HPI - General HPI Narrative HONEY RIDDLE, is a 84 M who presents with esophageal foreign body impaction. The patient reports he was eating a turkey burger and this got stuck and he choked on it and he is now not able to control his secretions and he is spitting up his saliva. The ER tried glucagon to no avail and they tried diet Coke as well. The patient has had esophageal foreign body impaction in the past. [facility] Medical History Right inguinal hernia History of inguinal hernia Abdominal pain COPD (chronic obstructive pulmonary disease) Pulmonary fibrosis Home Medications ?Medication ?Instructions ?Recorded ?Last Taken ?Type memantine 5 mg tablet 5 mg PO DAILY 05/22/23 Unkno wn History nirmatrelvir 300 mg (150 mg See Rx Instructions PO .CO MPLEX 05/22/23 Unknown Rx x2)-ritonavir 100 mg tablet,dose #30 tabs pack (Paxlovid) ondansetron 4 mg disintegrating 4 mg PO Q8H PRN PRN Na usea #14 tabs 05/22/23 Unknown Rx tablet Allergy/AdvReac Type Severity Reaction Status Date / Time No Known Allergies Allergy Verified 01/07/25 20:20 Family History Mother Myocardial infarction Brother Myocardial infarction Father Emphysema of lung Surgical History History of right inguinal hernia repair (~03/24/18) History of tooth extraction Social History Smoking Status: Former smoker Vital Signs Vital Signs Vital Signs: 01/07/25 20:20 01/07/25 20:28 01/07/25 21:20 Temperature 98 F Temperature Source Oral Pulse Rate 78 88 Respiratory Rate 16 16 Respiratory Effort Normal Blood Pressure 148/77 H 129/72 H Blood Pressure Mean 100 91 Pulse Ox 98 98 Oxygen Delivery Method Room Air Room Air 01/07/25 21:42 Temperature 98 F Temperature Source Pulse Rate 78 Respiratory Rate 16 Respiratory Effort Blood Pressure 148/77 H Blood Pressure Mean Pulse Ox 98 Oxygen Delivery Method Weight Weight: 169 lb Body Mass Index (BMI) 27.2 Physical Exam Const oriented x3 and no apparent distress Resp normal respiratory effort GI soft to palpation and non-tender Assessment & Plan Assessment/Plan (1) Esophageal obstruction due to food impaction: PLAN: The patient has esophageal impaction of food causing obstruction. I recommended EGD to the patient's daughter who got combative and wanted to try the glucagon instead. There was a confrontation between Riya BHANDARI and the patient's daughter. The patient's other daughter agreed to proceed on the patient's behalf. The patient's other daughter reports that they share POA. The patient does have dementia. The patient would like to proceed with EGD. I explained endoscopy in detail to the patient. I explained the risks including but not limited to stroke or heart attack with anesthesia, perforation of the GI tract, bleeding, infection. I explained that any of these could necessitate further emergency surgery. The patient understands and all questions were answered sufficiently. I discussed the increased risk of perforation or bleeding with removal of the foreign body. The patient and his daughter wish to proceed with procedure. Satinder Brnach MD Pager: [facility] [address] [place] [address] [address] [place] [address] Office:
--- NOTE | 2025-01-07 22:03 | NURSING ---
Report given to OR. Once done on phone. Amando at nursing desk and told me daughter #1 was refusing for pt to be taken to OR for treatment. Daughter #1 was very upset. This RN returned to room with security at door. I sat down to talk with daughter #1 about need for or and risks of aspiration from pt not being able to swallow and control secretions. Daughter #1 was pacing room and very dramatic in conversation. When asked what her plan was. She informed this RN she wanted Daughter #2 to come and help her make decisions. She stated she would be here soon and wanted to go out and make sure she could find them. I told her that was fine. She left. I finished charting. Walked out of room to find Daughter #1 running down ramon with PD and security after her. She sheree them and resisted them. She was escorted out of ED. A few minutes later Daughter #2 showed up. She spoke to her father asked if he wanted them to remove the food. He clearly stated yes. ER doc spoke with daughter #2 followed by OR doc. She was agreeable to plan of care with OR. Pt was prepped for OR and sent. Consent signed by Daughter #2 in OR.
--- NOTE | 2025-01-07 22:33 | OP.EGD_ITS ---
Patient Name: Melvin Franco Procedure Date: 01/07/2025 9:25 PM Date of : 1940 Age: 84 Procedure: Upper GI endoscopy Indications: Foreign body in the esophagus Providers: Satinder Branch MD Medicines: Propofol per Anesthesia Patient Profile: This is an 84 year old male. Refer to note in patient chart for documentation of history and physical. Complications: No immediate complications. Estimated blood loss: Minimal. Procedure: Pre-Anesthesia Assessment: - Prior to the procedure, a History and Physical was performed, and patient medications and allergies were reviewed. The patient's tolerance of previous anesthesia was also reviewed. The risks and benefits of the procedure and the sedation options and risks were discussed with the patient. All questions were answered, and informed consent was obtained. Prior Anticoagulants: The patient has taken no anticoagulant or antiplatelet agents. After reviewing the risks and benefits, the patient was deemed in satisfactory condition to undergo the procedure. After obtaining informed consent, the endoscope was passed under direct vision. Throughout the procedure, the patient's blood pressure, pulse, and oxygen saturations were monitored continuously. The gastroscope was introduced through the mouth, and advanced to the second part of duodenum. The upper GI endoscopy was accomplished without difficulty. The patient tolerated the procedure well. Scope In: 10:13:43 PM Scope Out: 10:20:41 PM Total Procedure Duration Time 0 hours 6 minutes 58 seconds Findings: Food was found in the lower third of the esophagus. Removal was accomplished with a scope. All of the food contents were advanced into the stomach. Impression: - Food in the lower third of the esophagus. Removal was successful. Recommendation: - Discharge patient to home. - Resume previous diet. - Continue present medications. - Use Prilosec (omeprazole) 20 mg PO daily for 4 weeks. Procedure Code(s): --- Professional --- 56683, Esophagogastroduodenoscopy, flexible, transoral; with removal of foreign body(s) Diagnosis Code(s): --- Professional --- T18.128A, Food in esophagus causing other injury, initial encounter T18.108A, Unspecified foreign body in esophagus causing other injury, initial encounter CPT copyright 2021 [employer]. All rights reserved. The codes documented in this report are preliminary and upon inpatient care manager rn review may be revised to meet current compliance requirements. Satinder Branch MD 01/07/2025 10:31:54 PM This report has been signed electronically. Number of Addenda: 0 Note Initiated On: 01/07/2025 9:25 PM
--- NOTE | 2025-01-07 22:33 | OP.CCLET_ITS ---
01/07/2025 Praneeth Spaulding [address] [place] [address] Re : Upper GI endoscopy procedure for Melvin Franco Dear Dr. Spaulding This procedure was performed on Tuesday, January 07, 2025. My impressions and recommendations are as follows: Impressions : - Food in the lower third of the esophagus. Removal was successful. Recommendations : - Discharge patient to home. - Resume previous diet. - Continue present medications. - Use Prilosec (omeprazole) 20 mg PO daily for 4 weeks. My findings are described in the full procedure note, which is enclosed. If I can be of further assistance, please feel free to contact me at Doctor phone number(s): , Work: . Sincerely, Satinder Branch MD 01/07/2025 10:31:54 PM This report has been signed electronically.
--- NOTE | 2025-01-07 22:36 | PCM.POST.ANE ---
Anesthesia: Postop Eval I Current Vital Signs Temperature: 97.6 F Pulse Rate: 100 Blood Pressure: 145/77 Respiratory Rate: 16 Pulse Ox: 94 Oxygen Delivery Method: Nasal Cannula Oxygen Flow Rate (L/min): 2 Assessment Airway patent: Yes Spontaneous unlabored respirations: Yes Mental status: Awake and Calm nausea: No Vomiting: No Anesthesia Complication: No Fluid Hydration Crystalloid volume administer (ml): 50 Total IV fluid infused: 50 Progress Note Anesthesia document: Postop Eval 1 completed: Yes
--- NOTE | 2025-01-07 22:37 | PCM.POSTANE2 ---
Anesthesia Postop Eval I Sum Postop Eval Completion status Anesthesia document: Postop Eval 1 completed: Yes Anesthesia Postop Eval I Summary Anesthesia Postop Eval I Summary: Anesthesia Postop Eval I: Assessment Summary Airway patent Yes 01/07/25 22:37 Spontaneous unlabored Yes 01/07/25 22:37 respirations Mental status Awake,Calm 01/07/25 22:37 nausea No 01/07/25 22:37 Vomiting No 01/07/25 22:37 Anesthesia Postop Eval I: Fluid Summary Crystalloid volume administer 50 01/07/25 22:37 (ml) Colloids volume administered ( ml) Blood Product volume administered (ml) Total IV fluid infused 50 01/07/25 22:37 Anesthesia Postop Eval I: Summary Notes Anesthesia Complication No 01/07/25 22:37 Anesthesia Complication Comment: Post-operative progress note Anesthesia: Postop Eval II Evaluation Mental status: Awake and Calm Pain Level: 0 nausea: No Vomiting: No
== END 2025-01-07 23:15 | disposition home or self-care (01) ==
LOC: ED 20:54 → SDC 20:57 → ACINP 20:57
PROVIDERS: Emergency Provider Emergency Medicine; PCP Family Medicine; Visit Provider Surgery
PROC: 0DJ08ZZ Inspection of Upper Intestinal Tract, Via Natural or Artificial Opening Endoscopic (ICD-10-PCS; CPT 43235; principal; 2025-01-07 21:45)
DX: T18.128A Food in esophagus causing other injury, initial encounter (principal); J44.9 Chronic obstructive pulmonary disease, unspecified; K22.2 Esophageal obstruction; Z87.891 Personal history of nicotine dependence
CPT/HCPCS: 43247; 99284; 94640; A4216; J1610; J2405

== ENCOUNTER 2025-01-08 16:31 | Inpatient (IN) | payer MEDICARE, SELFPAY ==
[2025-01-08] VITALS (12 sets, daily range): BP systolic 107–132; BP diastolic 60–88; PULSE 80–93; RESP 16–38; TEMP 36.8–37.6; O2SAT 1–95; BMI 28.1; BMI 27.3
--- NOTE | 2025-01-08 17:02 | ED.VIS.DYS ---
HPI History of Present Illness Chief Complaint: Shortness of Breath Informant: patient Limited: dementia Onset/Context/Timing Onset: Today Context: gradual Timing: Continuous Worsened by: Nothing Relieved by: Nothing Associated Symptoms cough; Negative for fever, chills, sweats, clear sputum, white sputum, yellow sputum or green sputum Chest Pain: Positive for None Narrative Narrative: Patient presents with shortness of breath that began today. Patient states that it has gradually gotten worse today. Patient states it is constant. Patient admits to a cough but denies any sputum production. Patient was seen here yesterday for esophageal food impaction and had an upper endoscopy. Patient was discharged home at that time. Patient started having a fever today. Daughter states when patient got to the emergency department, the fever had resolved. Patient does not normally wear home oxygen. [facility] Medical History Right inguinal hernia History of inguinal hernia Abdominal pain COPD (chronic obstructive pulmonary disease) Pulmonary fibrosis Home Medications Medication Instructions Recorded Last Taken Type memantine 5 mg tablet 5 mg PO BID 05/22/23 01/07/25 History furosemide 20 mg tablet 20 mg PO DAILY 01/08/25 01/07/25 History mecobalamin (vitamin B12) 1,000 1,000 mcg PO DAILY 01/08/25 01/07/25 History mcg chewable tablet Allergy/AdvReac Type Severity Reaction Status Date / Time No Known Allergies Allergy Verified 01/08/25 20:43 Family History Mother Myocardial infarction Brother Myocardial infarction Father Emphysema of lung Surgical History History of right inguinal hernia repair (~03/24/18) History of tooth extraction Social History Smoking Status: Former smoker ROS ROS ED Review of Systems ROS Unobtainable: due to mental status Constitutional Constitutional ED: Reports fever(s); Denies chills Cardiovascular Cardiovascular: Denies chest pain or palpitations Respiratory/Chest Respiratory/Chest: Reports cough and dyspnea Integumentary Denies abscess Neurologic Neurologic: Denies weakness EXAM Physical Exam Const Vital Signs: 01/08/25 16:31 01/08/25 16:34 01/08/25 16:57 Temperature 99.6 F H Temperature Source Oral Pulse Rate 93 Respiratory Rate 38 H Respiratory Effort Short of Breath Blood Pressure 113/61 Blood Pressure Mean 78 Pulse Ox 85 90 Oxygen Delivery Method Room Air Nasal Cannula Oxygen Flow Rate (L/min) 4 01/08/25 17:32 01/08/25 17:32 01/08/25 17:34 Temperature 99.6 F H Temperature Source Oral Pulse Rate 81 85 Respiratory Rate 21 H 25 H Respiratory Effort Blood Pressure 116/67 Blood Pressure Mean 83 Pulse Ox 94 94 Oxygen Delivery Method Nasal Cannula Nasal Cannula Oxygen Flow Rate (L/min) 5 5 01/08/25 18:00 01/08/25 19:00 Temperature 98.4 F 99.0 F Temperature Source Oral Oral Pulse Rate 80 87 Respiratory Rate 16 16 Respiratory Effort Blood Pressure 126/88 H 132/88 H Blood Pressure Mean 100 102 Pulse Ox 90 92 Oxygen Delivery Method Nasal Cannula Room Air Oxygen Flow Rate (L/min) Positive well nourished and well developed General Appearance ED: well developed and NAD HEENT Reports moist mucous membranes Neck supple and no JVD Resp normal respiratory effort Auscultation: rhonchi right lower Cardio regular rate and regular rhythm GI non-tender and non-distended Palpation: soft Extremity normal to inspection Neuro CN's II-XII intact bilaterally and no sensory deficits noted Sensorium / Orientation: alert Motor Exam: general weakness MDM MDM MDM Narrative Medical decision making narrative: Differential diagnosis includes but is not limited to aspiration pneumonia, bronchitis, cardiac dysrhythmia, cardiac ischemia, dehydration, electrolyte abnormality, and viral illness. Chest x-ray will be obtained to assess for pneumonia or bronchitis. EKG will be obtained to assess for cardiac dysrhythmia and cardiac ischemia. CBC will be obtained to assess for leukocytosis and anemia. Basic metabolic profile will be obtained to assess for electrolyte abnormality and renal function. High-sensitivity troponin will be obtained to assess for cardiac ischemia. History & Record Review Additional record(s) reviewed:: Prior outpatient record, Prior ED visit and Prior labs Lab Data Attestation: I reviewed the patient's lab results. Lab results narrative: CBC was reviewed. There is a leukocytosis of 17.8. The remainder is within normal limits. Basic metabolic profile was reviewed and showed a glucose of 122. The remainder is within normal limits. Labs: Laboratory Results - last 24 hr 01/08/25 16:52 WBC 17.8 H RBC 4.70 Hgb 15.0 Hct 43.1 MCV 91.7 MCH 31.9 MCHC 34.8 RDW Std Deviation 42.6 RDW Coeff of Radha 12.7 Plt Count 206 MPV 11.2 Immature Gran % (Auto) 0.600 Neut % (Auto) 84.2 H Lymph % (Auto) 9.7 L Wagoner % (Auto) 5.2 Eos % (Auto) 0.1 Baso % (Auto) 0.2 Absolute Neuts (auto) 15.0 H Absolute Lymphs (auto) 1.73 Nucleated RBC % 0 Sodium 139 Potassium 4.3 Chloride 105 Carbon Dioxide 22.1 Anion Gap 12 BUN 14 Creatinine 1.09 Estim Creat Clear Calc 49.00 L Est GFR (MDRD) Non-Af 67 BUN/Creatinine Ratio 12.9 Glucose 122 H Calcium 9.1 Magnesium 2.0 Radiography Chest X-Ray - ED: 2 View, Read by ED Physician, Read by Radiologist, Right Infiltrate and Left Infiltrate Diagnostic Testing: Clinical Impression(s) from Imaging Studies Chest X-Ray 01/08/25 17:20 IMPRESSION: Chest x-ray findings demonstrate mild pulmonary edema which may be related to CHF or fluid overload. The prominent interstitial markings in the lungs most likely represent pulmonary edema and/or pneumonic infiltrates. Small left pleural effusion with adjacent compressive atelectasis of the lung base. Diffuse osteopenia of the bony thorax with mild degenerative changes of the thoracic spine. Reading Location: [facility] PA and lateral chest x-ray was obtained. There are 2 views. On my independent interpretation, lung juan show prominent interstitial markings of the lungs that is likely pulmonary edema and/or infiltrate. There is borderline cardiomegaly. Bony thorax shows degenerative changes. Radiologist also interpreted the x-ray and agrees. EKG Initial EKG: Attestation: I personally reviewed and interpreted this EKG as follows: Interpretation: Sinus Rhythm (With occasional PACs with a rate of 83) and Non-Specific ST Changes Comments: EKG was obtained. On my independent interpretation, it showed a normal sinus rhythm with occasional PACs with a rate of 83. IL interval, QRS interval, and QTc intervals were all normal. [place] was normal. There are nonspecific ST-T wave changes. Prior EKG tracings: available for review Prior: Unchanged (01/28/2024) Additional Tests and Interventions Additional Tests or Interventions: Blood cultures were obtained. Treatment and Re-Evaluation :: Patient was given a DuoNeb aerosol here. Patient and family were advised of the findings. Patient was given a dose of Unasyn and Zithromax. Patient and family were advised of the need for hospitalization. Case was discussed with the hospitalist. He will admit the patient to his service. Patient understood and was agreeable with plan. All questions were answered. Discharge Plan Dx/Rx/DC Orders Clinical Impression: Pneumonia, COPD (chronic obstructive pulmonary disease), Hypoxia Disposition Disposition: Acute Care Hospital [facility] Discharge Date/Time: 01/08/25 20:09
--- NOTE | 2025-01-08 17:11 | EKG12_ITS ---
Test Reason : SOB Blood Pressure : */* mmHG Vent. Rate : 83 BPM Atrial Rate : 83 BPM P-R Int : 150 ms QRS Dur : 76 ms QT Int : 362 ms P-R-T Axes : -9 -6 6 degrees QTcB Int : 425 ms Sinus rhythm with Premature atrial complexes Nonspecific T wave abnormality Abnormal ECG Confirmed by Olivier De Jesus ([id number]), map editor HANNAH PANDA ([id number]) on 01/10/2025 11:21:18 AM Referred By: Clark Sosa Confirmed By: Olivier De Jesus
--- NOTE | 2025-01-08 17:20 | RAD_ITS ---
PROCEDURE: CHEST PA AND LATERAL 01/08/2025 REASON FOR EXAM: COUGH TECHNIQUE: CHEST PA AND LATERAL COMPARISON: Chest x-ray studies available dated 01/28/2024 and 05/22/2023 FINDINGS: Hardware: None Heart: Heart size is upper limits of normal. Mediastinum: Mediastinal silhouette is slightly prominent. Pulmonary vasculature is prominent centrally. Trachea is midline. Arteriosclerotic vascular disease of the aorta is noted. Lungs: Subtle prominent interstitial markings are noted in both breasts. Right costophrenic angle sharp appears small left pleural effusion is seen. Adjacent compressive atelectasis of the lung bases is noted. Bones: Diffuse osteopenia of the bony thorax is seen. Mild degenerative changes of the thoracic spine are noted. Soft tissues appear unremarkable. RAD/Chest PA and Lateral IMPRESSION: Chest x-ray findings demonstrate mild pulmonary edema which may be related to C HF or fluid overload. The prominent interstitial markings in the lungs most likely represent pulmonar y edema and/or pneumonic infiltrates. Small left pleural effusion with adjacent compressive atelectasis of the lung b ase. Diffuse osteopenia of the bony thorax with mild degenerative changes of the tho racic spine. Reading Location: [id number]
[2025-01-08 17:47] LABS: Hematocrit 43.1 % (40-54); Hemoglobin 15.0 g/dL (13.0-16.5); Immature Granulocytes Count 0.100 X10^3/uL (0.0-0.0); Mean Corp Hgb Conc 34.8 g/dL (32-36); Mean Corpuscular Volume 91.7 fL (80-94); Mean Platelet Vol. 11.2 fl (6.2-12.0); NRBC Flagged by Analyzer 0 % (0-5); Platelet Count 206 K/mm3 (150-450); RBC Distribution Width CV 12.7 % (11.6-14.6); RBC Distribution Width SD 42.6 fl (35.1-43.9); Red Blood Count 4.70 M/mm3 (4.6-6.2); White Blood Count 17.8 K/mm3 (4.4-11.0)
[2025-01-08 17:50] LABS: Anion Gap 12 (5-15); BUN 14 mg/dL (4-19); BUN/Creat Ratio 12.9 RATIO (10-20); Calcium,Total 9.1 mg/dL (7.6-11.0); Carbon Dioxide 22.1 mmol/L (21.0-32.0); Chloride 105 mmol/L (98-108); Estimated Creatinine Clearance 49.00 ml/min (50-250); Glucose 122 mg/dL (70-99); Potassium 4.3 mmol/L (3.3-5.1)
[2025-01-08] MEDS: Azithromycin 500 MG in 0.9% Normal Saline (250mL Bag) 250 ML 255 MG IV (19:04)
--- NOTE | 2025-01-08 19:25 | PCM.HP.STD ---
HPI - General General Date of Admission: 01/08/25 Date of Service: 01/08/25 Chief Complaint: Fever, shortness of breath since noon/afternoon today HPI Narrative HONEY RIDDLE, is a 84 M who was seen in the ED for unable to swallow/impacted food bolus after he was trying to eat turkey burger that was removed by Dr. Branch. As per EGD, pulled was in lower third of esophagus. Today in the afternoon, he was noticed fever, temperature measured 100–101 Fahrenheit at home, cough and shortness of therefore brought to ED. Shortness of breath was getting worse. In ED he required 4 to 5 L of oxygen though is not on oxygen at home. As per the daughter he has mild emphysema and history of smoking but quit about 30-35 years ago. He has more than 30 pack years of smoking. In ED, he is coughing out thick yellowish-brownish sputum. Chest x-ray neurology reviewed and shows right middle lobe/lower lobe infiltrate. Patient is admitted for further concern of aspiration pneumonia [facility] Medical History Right inguinal hernia History of inguinal hernia Abdominal pain COPD (chronic obstructive pulmonary disease) Pulmonary fibrosis Home Medications Medication Instructions Recorded Last Taken Type memantine 5 mg tablet 5 mg PO BID 05/22/23 01/07/25 History furosemide 20 mg tablet 20 mg PO DAILY 01/08/25 01/07/25 History mecobalamin (vitamin B12) 1,000 1,000 mcg PO DAILY 01/08/25 01/07/25 History mcg chewable tablet Allergy/AdvReac Type Severity Reaction Status Date / Time No Known Allergies Allergy Verified 01/08/25 16:34 Family History Mother Myocardial infarction Brother Myocardial infarction Father Emphysema of lung Surgical History History of right inguinal hernia repair (~03/24/18) History of tooth extraction Social History Smoking Status: Former smoker ROS ROS Narrative Complete 14 system ROS unobtainable as patient has advanced dementia and severe expressive aphasia. His main caregiver is her 2 daughters who are power of claims attorney for health Patient is stated he does not have burning pain. No vomiting. No diarrhea and bowel movement is soft. No abdominal pain. No acute chest pain pressure or tightness. Patient has mild imbalance/disequilibrium Review of Systems ROS Unobtainable: due to mental condition Vital Signs Vital Signs Vital Signs: 01/08/25 16:31 01/08/25 16:34 01/08/25 16:57 Temperature 99.6 F H Temperature Source Oral Pulse Rate 93 Respiratory Rate 38 H Respiratory Effort Short of Breath Blood Pressure 113/61 Blood Pressure Mean 78 Pulse Ox 85 90 Oxygen Delivery Method Room Air Nasal Cannula Oxygen Flow Rate (L/min) 4 01/08/25 17:32 01/08/25 17:32 01/08/25 17:34 Temperature 99.6 F H Temperature Source Oral Pulse Rate 81 85 Respiratory Rate 21 H 25 H Respiratory Effort Blood Pressure 116/67 Blood Pressure Mean 83 Pulse Ox 94 94 Oxygen Delivery Method Nasal Cannula Nasal Cannula Oxygen Flow Rate (L/min) 5 5 01/08/25 18:00 01/08/25 19:00 Temperature 98.4 F 99.0 F Temperature Source Oral Oral Pulse Rate 80 87 Respiratory Rate 16 16 Respiratory Effort Blood Pressure 126/88 H 132/88 H Blood Pressure Mean 100 102 Pulse Ox 90 92 Oxygen Delivery Method Nasal Cannula Room Air Oxygen Flow Rate (L/min) Weight Weight: 174 lb 6.17 oz Body Mass Index (BMI) 28.1 Physical Exam Narrative General: Alert, awake, cooperative. Orientation cannot be ascertained because of expressive aphasia but patient does not look confused HEENT: Atraumatic, PERRLA, EOMI, Normocephalic. Oral: Dysphagia no Gingival or Mucosal Lesions/ Ulcerations Neck: Supple, No JVD, Negative Carotid Bruits Chest wall/Lungs: Air entry diminished in right lung base. Mild coarse crepitations Cardiovascular: Regular rate and rhythm, PACs. No M/G/R Abdomen: Bowel Sounds Present, Soft, Non Tender, Non-Distended : No dysuria. No renal angle tenderness. No suprapubic tenderness. Extremities: No edema, Capillary Refill Less than 3 Seconds Skin: No rashes, No breakdown Musculoskeletal: No Tenderness to Palpation of Joints or Extremities. Muscle strength 5/5 at major joint Neurological: Cranial nerves II-XII grossly intact, DTR 2+/4. Chronic aphasia. Psych/Mental Status: Flat affect, dementia Results Lab / Micro Data 01/08/25 16:52 01/08/25 16:52 Labs: Laboratory Results - last 24 hr 01/08/25 16:52: WBC 17.8 H, RBC 4.70, Hgb 15.0, Hct 43.1, MCV 91.7, MCH 31.9, MCHC 34.8, RDW Std Deviation 42.6, RDW Coeff of Radha 12.7, Plt Count 206, MPV 11.2, Immature Gran % (Auto) 0.600, Neut % (Auto) 84.2 H, Lymph % (Auto) 9.7 L, Miller % (Auto) 5.2, Eos % (Auto) 0.1, Baso % (Auto) 0.2, Absolute Neuts (auto) 15.0 H, Absolute Lymphs (auto) 1.73, Nucleated RBC % 0, Sodium 139, Potassium 4.3, Chloride 105, Carbon Dioxide 22.1, Anion Gap 12, BUN 14, Creatinine 1.09, Estim Creat Clear Calc 49.00 L, Est GFR (MDRD) Non-Af 67, BUN/Creatinine Ratio 12.9, Glucose 122 H, Calcium 9.1 Imaging Radiology Impression Chest X-Ray 01/08/25 17:20 IMPRESSION: Chest x-ray findings demonstrate mild pulmonary edema which may be related to CHF or fluid overload. The prominent interstitial markings in the lungs most likely represent pulmonary edema and/or pneumonic infiltrates. Small left pleural effusion with adjacent compressive atelectasis of the lung base. Diffuse osteopenia of the bony thorax with mild degenerative changes of the thoracic spine. Reading Location: [id number] Assessment & Plan Assessment/Plan (1) Aspiration pneumonia: (2) Esophageal obstruction due to food impaction: PLAN: Plan This 84-year-old gentleman being admitted for evaluation of concern of aspiration pneumonia 1. Suspected aspiration pneumonia with hypoxia: Patient requires 4 to 5 L of oxygen in the ED. Is being admitted in PCU. Pneumonia workup including blood cultures, sputum culture, respiratory panel ordered. Empirically started on IV Unasyn. Speech therapy evaluation 2. Esophageal dysphagia: Patient had food bolus impacted while eating a turkey burger. It was removed by EGD, stuck in lower third of esophagus. Speech therapy ordered. For now clear liquid diet. His daughter denies neurological condition including stroke, Parkinson disease but patient might have presbyesophagus. 3. Acute mild COPD exacerbation with history of COPD/pulmonary fibrosis: Patient mild short of breath, requires 5 L of oxygen but not labored breathing/using accessory muscles. Patient has more than 30 pack years of smoking. Patient is being managed on scheduled bronchodilator, IV Solu-Medrol, Mucinex, incentive spirometry and Pep. IV Solu-Medrol 40 mg Q8 hourly x 3 doses then can transition to prednisone 4. Advanced dementia/expressive aphasia: I think patient has aphasia probably due to dementia. Minh consulted. PT and OT ordered 5. DVT prophylaxis: Moderate risk. Lovenox 40 mL subcu daily ordered. Living will/advanced directive/end of life care: Patient does have living will or advanced directive. His power of claims attorney for health are his 2 daughters. After discussion of benefits/risks procedures involved with full code, DNR CC arrest and DNR CC with patient's daughter in the ED, her daughter said if patient is terminal or no chance that she cannot breathe then DNR CC arrest with no intubation but told them she wanted full code. Patient does want artificial life support including intubation, tube feed, ventilator and/chest compression, central venous catheter, vasopressor and DC shock if needed in the beginning. Total time spent in [id number] encounter in discussion of advanced directive 17 minutes. Charges/Coding Visit Charges Inpatient E&M: 06541 Init Hosp L3 Procedures Hospitalists Procedures: 49087 Advncd Care Plan 30 Min
[2025-01-08 20:22] LABS: Magnesium 2.0 mg/dL (1.5-2.2)
[2025-01-08] MEDS: Ampicillin/Sulbactam 3 GM in 0.9% Normal Saline (100mL MB+) 100 ML IV (21:16)
[2025-01-08] MEDS: Lactated Ringers 1,000 ML 75 ML IV (21:16)
--- OUTSIDE RECORDS SUMMARY | 2025-01-08 23:22 | XMS RPT_ITS | CCD ---
Author Organization [facility] CliniSyva Care Team Providers Care Graphic Coordinator Name Role Phone Jacquelin Spaulding MD Primary Care Provider CATHERINE CROW Attending Unavailable CATHERINE CROW Referring Unavailable JACQUELIN SPAULDING Primary Care Unavailable CATHERINE CROW Referring Unavailable JACQUELIN SPAULDING Primary Care Unavailable CATHERINE CROW Attending Unavailable JACQUELIN SPAULDING Referring Unavailable JACQUELIN SPAULDING Primary Care Unavailable Jacquelin Spaulding MD Primary Care Provider Jacquelin Spaulding MD Primary Care Provider Jacquelin Spaulding MD Primary Care Provider Rossy SOFTWARE SUPPORT ANALYST.Marion WAN Unavailable Alexander SOFTWARE SUPPORT ANALYST.Pedro WAN Unavailable Helder Aiken Attending Unavailable Jacquelin Spaulding Primary Care Unavailable Jacquelin Spaulding Primary Care Unavailable Jacquelin Spaulding Attending Unavailable JACQUELIN SPAULDING Referring Unavailable ELDERALYSSA, JACQUELIN Rangel Primary Care Unavailable ELDERJACQUELIN SHAH Primary Care Unavailable ELDERJACQUELIN SHAH Attending Unavailable ELDERBROTAVON, JACQUELIN Rangel Primary Care Unavailable ELDERJACQUELIN SHAH Attending Unavailable ELDERBROCK, JACQUELIN Rangel Primary Care Unavailable ELDERJACQUELIN SHAH Referring Unavailable ELDERBROCK, JACQUELIN Ranegl Primary Care Unavailable ELDERBROTAVON, JACQUELIN Rangel Referring Unavailable ELDERBROTAVON, JACQUELIN Rangel Attending Unavailable ELDERBROCK, JACQUELIN Rangel Primary Care Unavailable ELDERBROTAVON, JACQUELIN Rangel Attending Unavailable ELDERBROCK, JACQUELIN Rangel Primary Care Unavailable ELDERBROTAVON, JACQUELIN Rangel Attending Unavailable SELF Referring Unavailable MARANDA, JACQUELIN Rangel Primary Care Unavailable JACQUELIN SPAULDING Primary Care Unavailable Dr. Jacquelin Spaulding MD Primary Care Provider 1( [phone] Dr[address] Taz Jenkins DO Emergency Provider Sarina SANTANA, Dr. Rajan Attending Provider Sarina SANTANA, Dr. Rajan Other Provider Dr. Clark Sosa DO Referring Provider Dr. Clark Sosa DO Emergency Provider Miguel SANTANA, Dr. Martell Admit Provider Miguel SANTANA, Dr. Martell Attending Provider Medications Current Medications Medication Drug Class(es) Dates [...] Comment on above: Take 1 capsule by [facility] three times daily as needed for cough for up to 10 days. furosemide 20 mg oral tablet (8 sources) Loop Diuretic Start: 01-08-2025 take 1 tablet by mouth once daily Furosemide 20 mg tablet Active 20 mg PO DAILY January 08, 2025 12:00am Start: 07-14-2024 End: 08-21-2024 take 1 tablet by mouth once daily furosemide (LASIX) 20 mg tablet Indications: Bilateral leg edema Take 1 tablet by mouth once daily. 90 tablet 1 08/21/2024 Active mecobalamin 1 mg chewable tablet (1 source) Start: 01-08-2025 take 1 tablet by mouth once daily Mecobalamin (Vitamin B12) 1,000 mcg tablet,chewable Active 1000 ug PO DAILY January 08, 2025 12:00am memantine hydrochloride 5 mg oral tablet (20 sources) V-mslzzo-C-aspar hurst Receptor Antagonist Start: 05-22-2023 take 1 tablet by mouth once daily Memantine 5 mg tablet Active 5 mg PO DAILY May 22, 2023 1:00am Start: 10-06-2022 End: 01-21-2024 take 1 tablet by mouth twice daily Memantine 5 mg tablet Active 5 mg PO TWICE A DAY May 22, 2023 1:00am Start: 03-20-2022 End: 09-08-2022 take 1 tablet by mouth twice daily memantine (NAMENDA) 5 mg tablet Indications: Mild dementia Take 1 tablet by mouth twice daily. 180 tablet 3 06/10/2022 09/08/2022 Active Comment on above: Take 1 tablet by carina th twice daily. Take 1 tablet by carina th twice daily for 14 days. nirmatrelvir tablet 300 mg (150 mg x 2) and ritonavir tablet 100 mg in a dose pack (PAXLOVID) (1 source) Start: 04-23-2022 End: 04-28-2022 nirmatrelvir tablet 300 mg (150 mg x [...] total of three tablets twice daily. Nirmatrelvir-Ritonavir (3 sources) Start: 05-22-2023 Nirmatrelvir-Ritonavir (Paxlovid) 300 mg (150 mg x 2)-100 mg tablets,dose pack Active 0 PO .COMPLEX 30 May 22, 2023 1:00am take TWO 150 mg tablets of nirmatrelvir with ONE 100 mg tablet of ritonavir twice daily for 5 days Start: 05-22-2023 Nirmatrelvir-R itonavir (Paxlovid) 300 mg (150 mg x 2)-100 mg tablets,dose pack Active 0 PO .COMPLEX May 22, 2023 12:00am take TWO 150 mg tablets of nirmatrelvir with ONE 100 mg tablet of ritonavir twice daily for 5 days triamcinolone acetonide 0.005 mg/mg topical ointment (5 sources) Corticosteroid Start: 06-10-2022 End: 06-20-2022 triamcinolone acetonide topical 0.5 % ointment Indications: [...] / HYDROcodone bitartrate 5 mg oral tablet (4 sources) Opioid Agonist Start: 03-24-2018 End: 03-27-2018 Hydrocodone-Acetamino phen 1 TABLET tablet Discontinued 1 {tbl} PO EVERY 6 HOURS NEEDED as needed for Pain 8 3 0 March 24, 2018 12:00am March 26, 2018 12:00am March 27, 2018 12:09am Postoperative pain Other acute postprocedural pain Start: 03-24-2018 End: 03-27-2018 take 1 tablet by mouth every six hours as needed Hydrocodone-Acetaminophen Discontinued 1 TABLET PO EVERY 6 HOURS NEEDED 8 3 March 23, 2018 11:00pm March 26, 2018 11:09pm [id number] 200 actuat albuterol 0.09 mg/actuat metered dose inhaler (4 sources) beta2-Adrenergic Agonist Start: 10-08-2017 End: 02-02-2018 Albuterol Sulfate 90 MCG inhaler Discontinued 2 NMA INHALATION EVERY 6 HOURS NEEDED as needed for Sob &/Or Wheezing October 08, 2017 12:00am February 02, 2018 3:00pm Start: 10-08-2017 End: 02-02-2018 take 1 puff(s) by inhalation every six hours as needed Albuterol Sulfate Discontinued 2 PUFF INHALATION EVERY 6 HOURS NEEDED October 07, 2017 11:00pm February 02, 2018 2:00pm 120 actuat budesonide 0.16 mg/actuat / formoterol fumarate 0.0045 mg/actuat metered dose inhaler (4 sources) Corticosteroid, beta2-Adrenergic Agonist Start: 10-10-2017 End: 02-02-2018 Budesonide-Formoterol 1 INHALER inhaler Discontinued 2 NMA INHALATION TWICE A DAY 1 0 October 10, 2017 12:00am February 02, 2018 3:01pm Start: 10-10-2017 End: 02-02-2018 take 1 puff(s) by inhalation twice daily Budesonide-Formoterol Discontinued 2 PUFF INHALATION TWICE A DAY 1 October 09, 2017 11:00pm February 02, 2018 2:01pm clobetasol propionate 0.5 mg/ml topical cream (1 source) Corticosteroid Start: 01-08-2025 End: 01-08-2025 Clobetasol 0.05 % cream Discontinued 1 NMA TOPICAL TWICE A DAY January 08, 2025 12:00am January 08, 2025 6:24pm doxycycline hyclate 100 mg oral tablet (4 sources) Tetracycline-class Drug Start: 10-08-2017 End: 10-10-2017 take 1 tablet by mouth twice daily Doxycycline Hyclate 100 MG tablet Discontinued 100 mg PO TWICE A DAY October 08, 2017 12:00am October 10, 2017 12:32pm Nirmatrelvir-Ritonav ir (Paxlovid) 300 mg (150 mg x 2)-100 mg tablets,dose pack (1 source) Start: 05-22-2023 End: 01-08-2025 Nirmatrelvir-Umair navir (Paxlovid) 300 mg (150 mg x 2)-100 mg tablets,dose pack Discontinued 0 PO .COMPLEX 30 0 May 22, 2023 1:00am January 08, 2025 5:27pm take TWO 150 mg tablets of nirmatrelvir with ONE 100 mg tablet of ritonavir twice daily for 5 days omeprazole 40 mg delayed release oral capsule (4 sources) Proton Pump Inhibitor Start: 03-17-2018 End: 03-23-2018 take 1 capsule by mouth once daily Omeprazole 40 MG capsule,delayed release(DR/EC) Discontinued 40 mg PO DAILY March 17, 2018 12:00am March 23, 2018 9:21am ondansetron 4 mg disintegrating oral tablet (4 sources) Serotonin-3 Receptor Antagonist Start: 05-22-2023 End: 01-08-2025 take 1 tablet by mouth every eight hours as needed for nausea Ondansetron 4 mg tablet,disintegra ting Discontinued 4 mg PO EVERY 8 HOURS NEEDED as needed for Nausea 14 0 May 22, 2023 1:00am January 08, 2025 5:27pm predniSONE 10 mg oral tablet (4 sources) Start: 10-28-2017 End: 02-02-2018 take 3 tablets by mouth once daily Prednisone 10 MG tablet Discontinued 30 mg PO DAILY 15 October 28, 2017 12:00am February 02, 2018 3:01pm Start: 10-28-2017 End: 02-02-2018 take 30 mg by mouth once daily Prednisone Discontinued 30 MG PO DAILY October 27, 2017 11:00pm February 02, 2018 2:01pm Problems Active Problems Problem Classification Problem Date Documented Da te Episodic/Chronic Abdominal hernia (4 sources) Inguinal hernia; Translations: [Unilateral inguinal hernia, without obstruction or gangrene, not specified as recurrent] 09-07-2019 Episodic Abdominal pain (4 sources) Abdominal pain; Translations: [Unspecified abdominal pain] 03-24-2018 Episodic Alcohol-related disorders (1 source) Alcohol intake above recommended sensible limits; Translations: [Alcohol abuse, uncomplicated] Chronic Allergic reactions (1 source) Contact dermatitis; Translations: [Unspecified contact dermatitis, unspecified cause] Episodic Chronic obstructive pulmonary disease and bronchiectasis (20 sources) Pulmonary emphysema; Translations: [Emphysema, unspecified] Onset: 10-11-2017 Resolved: 07-06-2023 10-11-2017 Chronic Delirium, dementia, and amnestic and other cognitive [...] Open wounds of head; neck; and trunk (4 sources) Laceration of forehead; Translations: [Laceration without foreign body of other part of head, initial encounter] 09-16-2021 Episodic Other gastrointestinal disorders (2 sources) Gagging; Translations: [Other specified symptoms and signs involving the digestive system and abdomen] 07-14-2024 Episodic Other gastrointestinal disorders (4 sources) Esophageal dysphagia; Translations: [Other dysphagia] 07-14-2024 Episodic Other gastrointestinal disorders (1 source) Other dysphagia; Translations: [Esophageal dysphagia] Onset: 10-05-2024 Episodic Other injuries and conditions due to external causes (6 sources) Obstruction of esophagus; Translations: [Food in esophagus causing other injury, initial encounter] 01-07-2025 Episodic Other lower respiratory disease (4 sources) Fibrosis of lung; Translations: [Pulmonary fibrosis, 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-24-2018 Chronic Other lower respiratory disease (1 source) Cough; Translations: [Acute cough] Episodic Other lower respiratory disease (1 source) Hypoxia; Translations: [Hypoxemia] 01-08-2025 Episodic Other screening for suspected conditions (not mental disorders or infectious disease) (5 sources) Patient encounter status; Translations: [Encounter for [...] caused by tuberculosis or sexually transmitted disease) (4 sources) Pneumonia; Translations: [Pneumonia, unspecified organism] 03-24-2018 Episodic [...] of bilateral lower extremities] Episodic Viral infection (5 sources) Disease caused by 2019-nCoV; Translations: [COVID-19] Episodic Past or Other Problems Problem Classification Problem Date Documented Da te Episodic/Chronic Nutritional deficiencies (20 sources) Cobalamin deficiency; Translations: [Deficiency of other specified B group vitamins] Onset: 10-06-2022 Episodic Other connective tissue disease (1 source) Pain in left arm; Translations: [Pain in left arm] Onset: 02-15-2024 Episodic Results Test Name Value Interpretation Reference Range Facility Absolute lymphocyte countOrd ered By: Clark Sosa on 01-08-2025 Lymphocytes Auto (Unsp spec) [#/Vol] 1.73 10*3/uL 0.83-4.51 [facility] Absolute neutrophil countOrd ered By: Clark Sosa on 01-08-2025 Neutrophils (Bld) [#/Vol] 15.0 10*3/uL High 2.0-7.7 [facility] Anion gap in Serum or Plasma Ordered By: Clark Sosa on 01-08-2025 Anion gap [Moles/Vol] 12 mmol/L 5-15 [facility] Automated lymphocyte count a s percentage of total leukocytesOrdered By: Clark Sosa on 01-08-2025 Lymphocytes/100 WBC Auto (Unsp spec) 9.7 % Low 19-41 [facility] BUN/creatinine ratioOrdered By: Clark Sosa on 01-08-2025 Urea nitrogen/Creatinine [Mass ratio] 12.9 mg/mg 10-20 [facility] Basophil percentageOrdered B y: Clark Sosa on 01-08-2025 Basophils/100 WBC (Bld) 0.2 % 0-1 [facility] Carbon dioxide, total [Moles /volume] in Central venous bloodOrdered By: Clark Sosa on 01-08-2025 CO2 [Moles/Vol] 22.1 mmol/L 21.0-32.0 [facility] Chloride assayOrdered By: Iggy Sosa on 01-08-2025 Chloride [Moles/Vol] 105 mmol/L 98-108 [facility] Eosinophil percentageOrdered By: Clark Sosa on 01-08-2025 Eosinophils/100 WBC (Bld) 0.1 % 0-5 [facility] Erythrocyte distribution wid th ratioOrdered By: Clark Sosa on 01-08-2025 Erythrocyte distribution width (RBC) [Ratio] 12.7 % 11.6-14.6 [facility] Erythrocyte distribution wid th standard deviationOrdered By: Clark Sosa on 01-08-2025 Erythrocyte distribution width (RBC) [Ratio] 42.6 fl 35.1-43.9 [facility] Glomerular filtration rate ( GFR) estimation/1.73 sq m using serum, plasma, or whole bOrdered By: Clark Sosa on 01-08-2025 GFR/1.73 sq M.predicted among non-blacks MDRD (S/P/Bld) [Vol rate/Area] 67 mL/min/{1.73_m2} >60 [facility] Comment on above: mL/min/1.73m2 CKD-EP I Creatinine Equation (2020) Hematocrit Auto (Bld) [Volum e fraction]Ordered By: Clark Sosa on 01-08-2025 Hematocrit (Bld) [Volume fraction] 43.1 % 40-54 [facility] Hemoglobin measurementOrdere d By: Clark Sosa on 01-08-2025 Hemoglobin (Bld) [Mass/Vol] 15.0 g/dL 13.0-16.5 [facility] Immature granulocytes/100 WB C Auto (Bld)Ordered By: Clark Sosa on 01-08-2025 Immature granulocytes/100 WBC (Bld) 0.600 % 0.0-0.9 [facility] Comment on above: IG% - Immature Granu locytes (promyelocytes, myelocytes and metamyelocytes) > 1% indicates that a LEFT SHIFT is Present. MCV (mean corpuscular volume ) determinationOrdered By: Clark Sosa on 01-08-2025 MCV (RBC) [Entitic vol] 91.7 fL 80-94 [facility] Mean corpuscular hemoglobin (MCH) determinationOrdered By: Clark Sosa on 01-08-2025 MCH (RBC) [Entitic mass] 31.9 pg 27.0-32.0 [facility] Mean corpuscular hemoglobin concentration (MCHC) determinationOrdered By: Clark Sosa on 01-08-2025 MCHC (RBC) [Mass/Vol] 34.8 g/dL 32-36 [facility] Mean platelet volume determi nationOrdered By: Clark Sosa on 01-08-2025 Platelet mean volume (Bld) [Entitic vol] 11.2 fL 6.2-12.0 [facility] Monocyte percentageOrdered B y: Clark Sosa on 01-08-2025 Monocytes/100 WBC (Bld) 5.2 % 0-10 [facility] Neutrophil percentageOrdered By: Clark Sosa on 01-08-2025 Neutrophils/100 WBC (Bld) 84.2 % High 47-70 [facility] Nucleated red blood cell per centageOrdered By: Clark Sosa on 01-08-2025 Nucleated RBC/100 WBC (Bld) [Ratio] 0 % 0-5 [facility] Platelet countOrdered By: Iggy Sosa on 01-08-2025 Platelets (Bld) [#/Vol] 206 10*3/uL 150-450 [facility] Potassium measurement (mass/ volume)Ordered By: Clark Sosa on 01-08-2025 Potassium (Unsp spec) [Mass/Vol] 4.3 mmol/L 3.3-5.1 [facility] RBC Auto (Bld) [#/Vol]Ordere d By: Clark Sosa on 01-08-2025 RBC (Bld) [#/Vol] 4.70 10*6/uL 4.6-6.2 [facility] Serum creatinine measurement (mass/volume)Ordered By: Clark Sosa on 01-08-2025 Creatinine [Mass/Vol] 1.09 mg/dL 0.70-1.20 [facility] Serum glucose measurement (m ass/volume)Ordered By: Clark Sosa on 01-08-2025 Glucose [Mass/Vol] 122 mg/dL High 70-99 [facility] Serum or plasma calcium morris urement (mass/volume)Ordered By: Clark Sosa on 01-08-2025 Calcium [Mass/Vol] 9.1 mg/dL 7.6-11.0 [facility] Serum or plasma urea nitroge n measurement (mass/volume)Ordered By: Clark Sosa on 01-08-2025 Urea nitrogen [Mass/Vol] 14 mg/dL 4-19 [facility] Sodium levelOrdered By: Clark Sosa on 01-08-2025 Sodium [Moles/Vol] 139 mmol/L 133-145 [facility] White blood cell (WBC) count Ordered By: Clark Sosa on 01-08-2025 WBC (Bld) [#/Vol] 17.8 10*3/uL High 4.4-11.0 [facility] CNOVon 11-09-2024 CNOV Office Visit (FAMPWS) MELVIN RIDDLE ([id number]) 1940 M Date Time Provider Department 11/09/24 1:20 PM JACQUELIN SPAULDING FAMPWS During your visit today, we recorded the following information about you: Pulse Respiration Blood pressure Weight 80/minute 14/minute 128/74 78.6 kg Jacquelin Spaulding MD 11/09/2024 4:03 PM Signed Chief Complaint Patient presents with: 6 Month Exam HPI Melvin Riddle is a 84 year old male who presents here today for 6 month follow up. Here with his daughter who is his consulting sales manager. He has another daughter who has a [...] Laterality Date COLONOSCOPY N/A 02/22/2018 Dr. Kaye, [facility] EGD N/A 02/22/2018 Dr. Kaye at [facility] HERNIA REPAIR HX N/A 02/2018 hernia surgery [...] diagnosis) Worsening, needing more care Continue with Namebarbie BID Daughter will be looking into Home Health Options 2. Need for vaccination - ICD9: V05.9, ICD10: Z23 Covid vaccine 3. Vitamin B12 deficiency - ICD9: 266.2, ICD10: E53.8 Continue current medications. 4. Bilateral leg edema - ICD9: 782.3, ICD10: R60.0 Contr (more content not included)... Normal [facility] XR ESOPHAGRAMon 10-05-2024 XR ESOPHAGRAM * * [...] aspiration was seen. IMPRESSION: Small hiatal hernia. [employer] Supervisor: DEWAYNE Transcribe Date/Time: Oct 05 2024 10:03A Dictated by : BELKIS MARCANO MD This examination was interpreted and the report reviewed and electronically signed by: BELKIS MARCANO MD on Oct 05 2024 10:08AM EST [id number] [facility] XR Esophagus Views W contras t Nathan 10-05-2024 IMPRESSION: Small hiatal hernia. [employer] Plant Supervisor: [facility] Transcribe Date/Time: Oct 05 2024 10:03A Dictated by : BELKIS MARCANO MD This examination was interpreted and the report reviewed and electronically signed by: BELKIS MARCNAO MD on Oct 05 2024 10:08AM EST [facility] * * *Final Report* * * [...] of the duodenum. No aspiration was seen. [facility] Provider, [facility] - 10/05/2024 * * *Final Report* * [...] was seen. IMPRESSION IMPRESSION: Small hiatal hernia. [employer] Supervisor: [facility] Transcribe Date/Time: Oct 05 2024 10:03A Dictated by : BELKIS MARCANO MD This examination was interpreted and the report reviewed and electronically signed by: BELKIS MARCANO MD on Oct 05 2024 10:08AM EST [facility] Radiology Study observation (narrative) Darnell Mora XR Esophagus Views W david crystal POOrdered By: Cc Provider on 10-05-2024 [facility] CNOVon 08-21-2024 CNOV Office Visit (FAMPWS) MELVIN RIDDLE ([id number]) 1940 M Date Time Provider Department 08/21/24 1:40 PM JACQUELIN SPAULDING During your visit [...] Left side normal. Daughter has questions about fdc use of Lasix and what are possible issues with fdc use of Lasix if any. Noted darker colored urine, drinking less beer at previous visit. CMP was ordered. Past medical history, appointments, medications, allergies reviewed. Previous Medical History No past medical history on file. Previous Surgical History PAST SURGICAL HISTORY Procedure Laterality Date COLONOSCOPY N/A 02/22/2018 Dr. Kaye, [facility] EGD N/A 02/22/2018 Dr. Kaye at [facility] HERNIA REPAIR HX N/A 02/2018 hernia surgery [...] as sched (more content not included)... Normal [facility] PVR LEG BENNY VAS LABon 2024 PVR LEG BENNY VAS LAB Non-Invasive Vascular Laboratory [facility] Lower Extremity Arterial Physiology Study Bilateral/Complete Date [...] Normal at rest. Technologist: Katiana Woody RVT, RDMS Ordering physician: JACQUELIN SPAULDING Interpreting physician: KEILA Moreno DO Final CC [employer] Medical Image : [id number] See Link below for Image Normal [facility] MELVIN RIDDLE ([id number]) 1940 Date Time Provider Department 08/16/24 JACQUELIN SPAULDING [...] Status:Closed by NED BARRY on 08/16/24 Normal [facility] Comprehensive metabolic 2000 panelon 08-16-2024 Albumin [Mass/Vol] 4.6 g/dL Normal 3.9-4.9 [facility] Comment on above: Order Comment: Speci men Type: BLOOD SPECIMENOrdering Facility: [facility] Address: [address] [place] [address] Performed By: #### 2 4323-8 ####[facility] LABCLIA [id number] [place] [address] [place] ALP [Catalytic activity/Vol] 77 U/L Normal 38-113 [facility] Comment on above: Order Comment: Speci men Type: BLOOD SPECIMENOrdering Facility: [facility] Address: [address] [id number] Performed By: #### 2 4323-8 ####[facility] LABCLIA [id number] [place] [address] [place] ALT [Catalytic activity/Vol] 24 U/L Normal 10-54 [facility] Comment on above: Order Comment: Speci men Type: BLOOD SPECIMENOrdering Facility: [facility] Address: [address] [id number] Performed By: #### 2 4323-8 ####[facility] LABCLIA [id number] [place] [address] [place] Anion gap [Moles/Vol] 12 mmol/L Normal 8-15 [facility] Comment on above: Order Comment: Speci men Type: BLOOD SPECIMENOrdering Facility: [facility] Address: [address] [place] [address] Performed By: #### 2 4323-8 ####[facility] LABCLIA [id number] [place] [address] [place] AST [Catalytic activity/Vol] 17 U/L Normal 14-40 [facility] Comment on above: Order Comment: Speci men Type: BLOOD SPECIMENOrdering Facility: [facility] Address: [address] [place], [place] [id number] Performed By: #### 2 4323-8 ####[facility] LABCLIA [id number] [place] [address] [place] Bilirubin [Mass/Vol] 0.5 mg/dL Normal 0.2-1.3 [facility] Comment on above: Order Comment: Speci men Type: BLOOD SPECIMENOrdering Facility: [facility] Address: [address] [place] [address] Performed By: #### 2 4323-8 ####[facility] LABCLIA [id number] [place] [address] [place] Calcium [Mass/Vol] 9.4 mg/dL Normal 8.5-10.2 [facility] Comment on above: Order Comment: Speci men Type: BLOOD SPECIMENOrdering Facility: [facility] Address: [address] [place] [address] Performed By: #### 2 4323-8 ####[facility] LABCLIA [id number] [place] [address] [place] Chloride [Moles/Vol] 103 mmol/L Normal 98-107 [facility] Comment on above: Order Comment: Speci men Type: BLOOD SPECIMENOrdering Facility: [facility] Address: [address] [place] [address] Performed By: #### 2 4323-8 ####[facility] LABCLIA [id number] [place] [address] [place] CO2 [Moles/Vol] 27 mmol/L Normal 22-30 [facility] Comment on above: Order Comment: Speci men Type: BLOOD SPECIMENOrdering Facility: [facility] Address: [address] [place] [address] Performed By: #### 2 4323-8 ####[facility] LABCLIA [id number] [place] [address] [place] Creatinine [Mass/Vol] 1.00 mg/dL Normal 0.73-1.22 [facility] Comment on above: Order Comment: Speci men Type: BLOOD SPECIMENOrdering Facility: [facility] Address: [address] [place] [address] Performed By: #### 2 4323-8 ####[facility] LABCLIA [id number] [place] [address] [place] Creatinine and Glomerular filtration rate.predicted panel (S/P/Bld) 74 mL/min/1.73m??? Normal >=60 [facility] Comment on above: Order Comment: Speci men Type: BLOOD SPECIMENOrdering Facility: [facility] Address: [address] [place] [address] Result Comment: Lisa mated Glomerular Filtration Rate [...] actual GFR. Performed By: #### 2 4323-8 ####[facility] LABCLIA [id number] [place] [address] [place] Glucose [Mass/Vol] 118 mg/dL High 74-99 [facility] Comment on above: Order Comment: Paula aceves Type: BLOOD SPECIMENOrdering Facility: [facility] Address: [address] [place] [address] Result Comment: The [place] Diabetes Association (ADA) provides guidance for cutoff [...] Standards of Medical Care in Diabetes 2016, [place] Diabetes Association. Diabetes Care. 2016.39(Suppl 1). Performed By: #### 2 4323-8 ####[facility] LABCLIA [id number] [place] [address] [place] Potassium [Moles/Vol] 4.1 mmol/L Normal 3.7-5.1 [facility] Comment on above: Order Comment: Paula aceves Type: BLOOD SPECIMENOrdering Facility: [facility] Address: [address] [place] [address] Performed By: #### 2 4323-8 ####[facility] LABIA [id number] [place] [address] [place] Protein [Mass/Vol] 7.2 g/dL Normal 6.3-8.0 [facility] Comment on above: Order Comment: Speci men Type: BLOOD SPECIMENOrdering Facility: [facility] Address: [address] [place] [address] Performed By: #### 2 4323-8 ####[facility] LABCLIA [id number] [place] [address] [place] Sodium [Moles/Vol] 142 mmol/L Normal 136-144 [facility] Comment on above: Order Comment: Speci men Type: BLOOD SPECIMENOrdering Facility: [facility] Address: [address] [place] [address] Performed By: #### 2 4323-8 ####[facility] LABCLIA [id number] [place] [address] [place] Urea nitrogen [Mass/Vol] 19 mg/dL Normal 9-24 [facility] Comment on above: Order Comment: Speci men Type: BLOOD SPECIMENOrdering Facility: [facility] Address: [address] [place] [address] Performed By: #### 2 4323-8 ####[facility] LABCLIA [id number] [address] [place] CNOVon 07-14-2024 CNOV Office Visit (FAMPWS) MELVIN RIDDLE ([id number]) 1940 M Date Time Provider Department 07/14/24 1:20 PM JACQUELIN SPAULDING FAMPWS During your visit today, we recorded the [...] year of ending up in ER in [place] due to food stuck in esophagus. Passed spontaneously. No EGD done.. Edema: Bilateral lower legs and feet that has been going on for a long time. Has been seen by hogshead stock clerk who suggested circulation test. Does not improve [...] Laterality Date COLONOSCOPY N/A 02/22/2018 Dr. Kaye, [facility] EGD N/A 02/22/2018 Dr. Kaye at [facility] HERNIA REPAIR HX N/A 02/2018 hernia surgery [...] Past Histories independently gathered by the clinical field support engineer and the remaining scribed note accurately describes my personal service to the patient. Medical Decision Making: Problems: Moderate: New problem with uncertain prognosis Data: Unique test(s) ordered: 3+ Medical Decision Making Level: 4 - Moderate Jacquelin Spaulding MD The documentation for this note was completed by Chelo Graham MA acting as scribe for Jacquelin Spaulding MD. July 14, 2024 1:15 PM. hCelo Graham MA Allergies As of Date: 07/14/2024 (No Known Allergies) Date Reviewed: 07/14/2024 Reviewed by: Chelo Graham MA - Fully Assessed Reason for Visit: (more content not included)... [facility] (FAMPWS) MELVIN RIDDLE ([id number]) 1940 M Date Time Provider Department 07/10/24 JACQUELIN SPAULDING During your visit today, we [...] Encounter Status:Closed by ADRIENNE DUVALL on 07/10/24 [facility] CNOVon 05-08-2024 CNOV Office Visit (FAMPWS) MELVIN RIDDLE ([id number]) 1940 M Date Time Provider Department 05/08/24 1:40 PM [facility] During your visit today, we recorded the [...] as PCP - General (Family Medicine) [place] Petit AND Ankle - Podiatry, unable to recall [...] 83 Resp 18 Ht 161.3 cm (5' 3.5") Wt 76.1 kg (167 lb 12.3 oz) [...] recommended use, (more content not included)... Normal [facility] CNOVon 02-03-2024 CNOV Office Visit (FAMPWS) MELVIN RIDDLE ([id number]) 1940 M Date Time Provider Department 02/03/24 10:00 AM JACQUELIN SPAULDING FAMPWS During your visit today, we recorded the following information about you: Pulse Respiration Blood pressure Weight 76/minute 18/minute 118/78 75.1 kg Jacquelin Spaulding MD 02/03/2024 10:44 AM Signed Chief Complaint Patient presents with: Hospital Follow Up HPI Melvin Riddle is a 83 year old male who presents here today for an ED follow up. Pt was seen at [facility] ED on 01/28/24 due to a fall. [...] feels the area is healing up nicely. [facility] ED: HPI - Fall History of Present [...] medications, allerg (more content not included)... Normal [facility] 12 Lead EKGon 01-28-2024 12 Lead EKG [facility] Cardiovascular Services [address] [place] [address] 12 Lead EKG 01/28/24 1127 MR#: [id number] Acct: [id number] Name: MELVIN RIDDLE Debby Rep #: [id number] : 1940 83 From: Olivier De Jesus [...] normal ECG Confirmed by Olivier De Jesus ([id number]), production editor HANNAH PANDA ([id number]) on 01/31/2024 2:02:30 PM Referred By: BERNADINE Confirmed By:Olivier De Jesus 01/31/24 1402 Date Olivier De Jesus MD CC: Dr. Jacquelin Spaulding MD; Dr. Helder Aiken DO Signed Normal [facility] Brain/Head without Contrasto n 01-28-2024 Brain/Head without Contrast [facility] Imaging Services [address] [place] [address] Brain/Head without Contrast MR#: [id number] Acct: [id number] Name: MELVIN RIDDLE Rep #: [id number] : 1940 M 83 From: Pepe duffy MD PCP: Dr. Jacquelin Spaulding MD Status: REG ER Study: Brain/Head without Contrast Date of Exam: 08/21 Exam# [id number] Ordering Dr: Helder Aiken DO [id number] STUDY: CT BRAIN WITHOUT CONTRAST REASON FOR [...] Signed: Pepe Bunn MD at 11:59 EDT Reading Location ID and State: [address] [place] [address] , Service support , CC: Dr. Jacquelin Spaulding MD; Dr. Helder Aiken DO [employer] Supervisor: Signed Normal [facility] CBC W/Diff, Automatedon 08-0 Absolute Lymph 1.31 X10 3/uL Normal 0.83-4.51 [facility] Comment on above: Performed By: #### L 100.0100, L501.4020, L500.4050 #### [facility] [address] [place], [address] Absolute Neut 5.5 X10 3/uL Normal 2.0-7.7 [facility] Comment on above: Performed By: #### L 100.0100, L501.4020, L500.4050 #### [facility] [address] [place], [address] Basophils/100 WBC (Bld) 0.3 % Normal 0-1 [facility] Comment on above: Performed By: #### L 100.0100, L501.4020, L500.4050 #### [facility] [address] [place], [address] Eosinophils/100 WBC (Bld) 0.8 % Normal 0-5 [facility] Comment on above: Performed By: #### L 100.0100, L501.4020, L500.4050 #### [facility] [address] [place], [address] Erythrocyte distribution width (RBC) [Ratio] 12.9 % Normal 11.6-14.6 [facility] Comment on above: Performed By: #### L 100.0100, L501.4020, L500.4050 #### [facility] [address] [place], [address] Hematocrit (Bld) [Volume fraction] 42.9 % Normal 40-54 [facility] Comment on above: Performed By: #### L 100.0100, L501.4020, L500.4050 #### [facility] [address] [place], [address] Hemoglobin (Bld) [Mass/Vol] 14.6 g/dL Normal 13.0-16.5 [facility] Comment on above: Performed By: #### L 100.0100, L501.4020, L500.4050 #### [facility] [address] [place], [address] IG% 0.400 Normal 0.0-0.9 [facility] Comment on above: Result Comment: IG% - Immature Granulocytes (promyelocytes, myelocytes and metamyelocytes) > 1% indicates that a LEFT SHIFT is Present. Performed By: #### L 100.0100, L501.4020, L500.4050 #### [facility] [address] [place], [address] Lymphocytes/100 WBC (Bld) 17.7 % Low 19-41 [facility] Comment on above: Performed By: #### L 100.0100, L501.4020, L500.4050 #### [facility] [address] [place], [address] MCH (RBC) [Entitic mass] 31.8 pg Normal 27.0-32.0 [facility] Comment on above: Performed By: #### L 100.0100, L501.4020, L500.4050 #### [facility] [address] [place], [address] MCHC (RBC) [Mass/Vol] 34.0 g/dL Normal 32-36 [facility] Comment on above: Performed By: #### L 100.0100, L501.4020, L500.4050 #### [facility] [address] [place], [address] MCV (RBC) [Entitic vol] 93.5 fL Normal 80-94 [facility] Comment on above: Performed By: #### L 100.0100, L501.4020, L500.4050 #### [facility] [address] [place], [address] Monocytes/100 WBC (Bld) 6.9 % Normal 0-10 [facility] Comment on above: Performed By: #### L 100.0100, L501.4020, L500.4050 #### [facility] [address] [place], [address] Neutrophils/100 WBC (Bld) 73.9 % High 47-70 [facility] Comment on above: Performed By: #### L 100.0100, L501.4020, L500.4050 #### [facility] [address] [place], [address] Nucleated RBC (Bld) [#/Vol] 0 10*3/uL Normal 0-5 [facility] Comment on above: Performed By: #### L 100.0100, L501.4020, L500.4050 #### [facility] [address] [place], [address] Platelet mean volume (Bld) [Entitic vol] 10.3 fL Normal 6.2-12.0 [facility] Comment on above: Performed By: #### L 100.0100, L501.4020, L500.4050 #### [facility] [address] [place], [address] Platelets (Bld) [#/Vol] 202 10*3/uL Normal 150-450 [facility] Comment on above: Performed By: #### L 100.0100, L501.4020, L500.4050 #### [facility] [address] [place], [address] RBC (Bld) [#/Vol] 4.59 10*6/uL Low 4.6-6.2 [facility] Comment on above: Performed By: #### L 100.0100, L501.4020, L500.4050 #### [facility] [address] [place], [address] RDW SD 43.8 fl Normal 35.1-43.9 [facility] Comment on above: Performed By: #### L 100.0100, L501.4020, L500.4050 #### [facility] [address] [place], [address] WBC (Bld) [#/Vol] 7.4 10*3/uL Normal 4.4-11.0 [facility] Comment on above: Performed By: #### L 100.0100, L501.4020, L500.4050 #### [facility] [place], [address] CNOVon 01-28-2024 CNOV Office Visit (UCWSTR) MELVIN RIDDLE ([id number]) 1940 M Date Time Provider Department 01/28/24 9:45 AM GABRIELLE MONTEZ [facility] During your visit today, we recorded the following information about you: Temperature Pulse Respiration Blood pressure 97.4 degrees 72/minute 18/minute 132/77 Gabrielle Montez APRN.EMBALMER APPRENTICE 01/28/2024 10:07 AM Signed 83 year old [...] Status:Closed by GABRIELLE MONTEZ on 01/28/24 Normal [facility] Chest 1 View (Portable)on Chest 1 View (Portable) [facility] Imaging Services [address] [place] [address] Chest 1 View (Portable) MR#: [id number] Acct: [id number] Name: MELVIN RIDDLE Rep #: [id number] : 1940 M 83 From: Pepe duffy MD PCP: Dr. Jacquelin Spaulding MD Status: REG ER Study: Chest 1 View (Portable) Date of Exam: 01/28/24 Exam# [id number] Ordering Dr: Helder Aiken DO [id number] STUDY: X-RAY CHEST REASON FOR EXAM: Male, [...] Jacquelin Spaulding MD; Dr. Helder Aiken DO [employer] Supervisor: Signed Normal [facility] Comprehensive Metabolic Prof ilon 01-28-2024 Albumin [Mass/Vol] 3.6 g/dL Normal 3.2-5.0 [facility] Comment on above: Order Comment: 'TROP ' Serial specimen #1, #2 or #3: 1 Performed By: #### L 100.0100, L501.4020, L500.4050 #### [facility] [address] [place], [address] Albumin/Globulin [Mass ratio] 1.3 {ratio} Normal 0.9-2.4 [facility] Comment on above: Order Comment: 'TROP ' Serial specimen #1, #2 or #3: 1 Performed By: #### L 100.0100, L501.4020, L500.4050 #### [facility] [address] [place], [address] ALK P 54 U/L Normal 45-117 [facility] Comment on above: Order Comment: 'TROP ' Serial specimen #1, #2 or #3: 1 Performed By: #### L 100.0100, L501.4020, L500.4050 #### [facility] [address] [place], [address] ALT [Catalytic activity/Vol] 24 U/L Normal 16-61 [facility] Comment on above: Order Comment: 'TROP ' Serial specimen #1, #2 or #3: 1 Performed By: #### L 100.0100, L501.4020, L500.4050 #### [facility] [address] [place], [address] AST [Catalytic activity/Vol] 17 U/L Normal 15-37 [facility] Comment on above: Order Comment: 'TROP ' Serial specimen #1, #2 or #3: 1 Performed By: #### L 100.0100, L501.4020, L500.4050 #### [facility] [address] [place], [address] Bilirubin [Mass/Vol] 0.70 mg/dL Normal 0.20-1.00 [facility] Comment on above: Order Comment: 'TROP ' Serial specimen #1, #2 or #3: 1 Result Comment: For patients on eltrombopag therapy, use of Dimension Given TBIL is not recommended. Performed By: #### L 100.0100, L501.4020, L500.4050 #### [facility] [address] [place], [address] BUN/CRE 10.6 RATIO Normal 10-20 [facility] Comment on above: Order Comment: 'TROP ' Serial specimen #1, #2 or #3: 1 Performed By: #### L 100.0100, L501.4020, L500.4050 #### [facility] [address] [place], [address] CA,Total 8.7 mg/dL Normal 8.5-10.1 [facility] Comment on above: Order Comment: 'TROP ' Serial specimen #1, #2 or #3: 1 Performed By: #### L 100.0100, L501.4020, L500.4050 #### [facility] [address] [place], [address] Chloride [Moles/Vol] 110 mmol/L High 98-107 [facility] Comment on above: Order Comment: 'TROP ' Serial specimen #1, #2 or #3: 1 Performed By: #### L 100.0100, L501.4020, L500.4050 #### [facility] [address] [place], [address] CO2 [Moles/Vol] 24.0 mmol/L Normal 21.0-32.0 [facility] Comment on above: Order Comment: 'TROP ' Serial specimen #1, #2 or #3: 1 Performed By: #### L 100.0100, L501.4020, L500.4050 #### [facility] [address] [place], [address] Creatinine [Mass/Vol] 0.76 mg/dL Normal 0.70-1.30 [facility] Comment on above: Order Comment: 'TROP ' Serial specimen #1, #2 or #3: 1 Result Comment: The validity of the calculated GFR GFRAA in patients over 70 years has not been determined. Clinical correlation is essential. Performed By: #### L 100.0100, L501.4020, L500.4050 #### [facility] [address] [place], [address] EST GFR - AA 126 mL/min Normal >60 [facility] Comment on above: Order Comment: 'TROP ' Serial specimen #1, #2 or #3: 1 Result Comment: Afri can English GFR Calc Performed By: #### L 100.0100, L501.4020, L500.4050 #### [facility] [address] [place], [address] GAP 4 Low 5-15 [facility] Comment on above: Order Comment: 'TROP ' Serial specimen #1, #2 or #3: 1 Performed By: #### L 100.0100, L501.4020, L500.4050 #### [facility] [address] [place], [address] GFR/1.73 sq M.predicted among non-blacks MDRD (S/P/Bld) [Vol rate/Area] 104 mL/min/{1.73_m2} Normal >60 [facility] Comment on above: Order Comment: 'TROP ' Serial specimen #1, #2 or #3: 1 Result Comment: Non- GFR Calc Performed By: #### L 100.0100, L501.4020, L500.4050 #### [facility] [address] [place], [address] Globulin (S) [Mass/Vol] 2.8 g/dL Normal 2.2-4.2 [facility] Comment on above: Order Comment: 'TROP ' Serial specimen #1, #2 or #3: 1 Performed By: #### L 100.0100, L501.4020, L500.4050 #### [facility] [address] [place], [address] Glucose [Mass/Vol] 103 mg/dL Normal 74-106 [facility] Comment on above: Order Comment: 'TROP ' Serial specimen #1, #2 or #3: 1 Result Comment: Fast ing Glucose result from 100 to 125 mg/dL suggests IMPAIRED HOMEOSTASIS per A.D.A. criteria. Performed By: #### L 100.0100, L501.4020, L500.4050 #### [facility] [address] [place], [address] Potassium [Moles/Vol] 4.4 mmol/L Normal 3.5-5.1 [facility] Comment on above: Order Comment: 'TROP ' Serial specimen #1, #2 or #3: 1 Performed By: #### L 100.0100, L501.4020, L500.4050 #### [facility] [address] [place], [address] Sodium [Moles/Vol] 138 mmol/L Normal 136-145 [facility] Comment on above: Order Comment: 'TROP ' Serial specimen #1, #2 or #3: 1 Performed By: #### L 100.0100, L501.4020, L500.4050 #### [facility] [address] [place], [address] T PROT 6.4 g/dL Normal 6.4-8.2 [facility] Comment on above: Order Comment: 'TROP ' Serial specimen #1, #2 or #3: 1 Performed By: #### L 100.0100, L501.4020, L500.4050 #### [facility] [address] [place], [address] Urea nitrogen [Mass/Vol] 8 mg/dL Normal 7-18 [facility] Comment on above: Order Comment: 'TROP ' Serial specimen #1, #2 or #3: 1 Performed By: #### L 100.0100, L501.4020, L500.4050 #### [facility] [address] [place], [address] Emergency Department Summary on 01-28-2024 Emergency Department Summary [facility] Medical Records Department [address] [place] [address] Emergency Department Summary 01/28/24 MR#: [id number] Acct: [id number] Name: MELVIN RIDDLE Rep #: [id number] : 1940 83 From: Helder Aiken DO PCP: Dr. Jacquelin Spaulding MD Status:REG ER Location: ED HPI HPI - Fall History of Present Illness Chief Complaint: Fall PFSH [facility] Medical History Abdominal pain COPD (chronic [...] obtained from others: Patient's daughter Consults: none [facility] Narrative: Patient was initially hemodynamically [...] left u (more content not included)... Normal [facility] HIP, UNI W/ Pelvis 2-3 Views on 01-28-2024 HIP, UNI W/ Pelvis 2-3 Views [facility] Imaging Services [address] [place], [place] [address] HIP, UNI W/ Pelvis 2-3 Views MR#: [id number] Acct: [id number] Name: MELVIN RIDDLE Rep #: [id number] : 1940 M 83 From: Pepe duffy MD PCP: Dr. Jacquelin Spaulding MD Status: REG ER Study: HIP, UNI W/ Pelvis 2-3 Views Date of Exam: 08/21 Exam# [id number] Ordering Dr: Helder Aiken DO [id number] STUDY: X-RAY - PELVIS AND LEFT HIP [...] Signed: Pepe Bunn MD at 12:20 EDT Reading Location ID and State: [address] [place] [address] , Service support , CC: Dr. Jacquelin Spaulding MD; Dr. Helder Aiken DO [employer] Supervisor: Signed Normal [facility] Humerus min 2 Viewson 2023 Humerus min 2 Views [facility] Imaging Services [address] [place], [place] [address] Humerus min 2 Views MR#: [id number] Acct: [id number] Name: MELVIN RIDDLE Rep #: [id number] : 1940 M 83 From: Peep duffy MD PCP: Dr. Jacquelin Spaulding MD Status: [facility] ER Study: Humerus min 2 Views Date of Exam: 01/28/24 Exam# [id number] Ordering Dr: Helder Aiken DO [id number] STUDY: X-RAY - LEFT HUMERUS REASON FOR EXAM: Male, 83 years old. pain TECHNIQUE: 2 view(s) of the humerus. COMPARISON: None. FINDINGS: Normal visualized humerus. There is no demonstrated fracture or osseous destructive process. There is no demonstrated soft tissue abnormality. RAD/Humerus min 2 Views IMPRESSION: Normal x-ray examination of the humerus. Electronically Signed: Pepe Bunn MD at 12:19 EDT , CC: Dr. Jacquelin Spaulding MD; Dr. Helder Aiken DO [employer] Supervisor: Signed Normal [facility] L501.4020on 01-28-2024 TROPONIN-I HS 6 pg/mL Normal 3.0-78.0 [facility] Comment on above: Order Comment: 'TROP ' Serial specimen #1, #2 or #3: 1 Result Comment: Deepak ram Note: New Test Units and Gender Specific Reference Ranges. For more information see Policy Stat Procedure Given High Sensitivity Troponin (TNIH) and attachments. Performed By: #### L 100.0100, L501.4020, L500.4050 #### [facility] [address] [facility] [place], [place], [address] Spine Cervical without Contr ason 01-28-2024 Spine Cervical without Contras [facility] Imaging Services [address] [place] [address] Spine Cervical without Contras MR#: [id number] Acct: [id number] Name: MELVIN RIDDLE Rep #: [id number] : 1940 M 83 From: Pepe duffy MD PCP: Dr. Jacquelin Spaulding MD Status: REG ER Study: Spine Cervical without Contras Date of Exam: 0 01/28/24 Exam# [id number] Ordering Dr: Helder Aiken DO [id number] STUDY: CT CERVICAL SPINE WITHOUT CONTRAST REASON [...] Signed: Pepe Bunn MD at 12:02 EDT Reading Location ID and State: [facility] / [place] , Service support , CC: Dr. Jacquelin Spaulding MD; Dr. Helder Aiken DO [employer] Supervisor: Signed Normal [facility] Spine Lumbar without Contras ton 01-28-2024 Spine Lumbar without Contrast [facility] Imaging Services [address] [place] [address] Spine Lumbar without Contrast MR#: [id number] Acct: [id number] Name: MELVIN RIDDLE Rep #: [id number] : 1940 83 From: Pepe duffy MD PCP: Dr. Jacquelin Spaulding MD Status: [facility] Study: Spine Lumbar without Contrast Date of Exam: Exam# [id number] Ordering Dr: Helder Aiken DO [id number] STUDY: CT LUMBAR SPINE WITHOUT CONTRAST REASON [...] Jacquelin Spaulding MD; Dr. Helder Aiken DO [employer] Supervisor: Signed Normal [facility] Absolute lymphocyte countOrd ered By: Jonathan Bedoya on 05-22-2023 Lymphocytes Auto (Unsp spec) [#/Vol] 0.98 10*3/uL 0.83-4.51 [facility] Basophil percentageOrdered B y: Jonathan Bedoya on 05-22-2023 Basophil percentage 0-5 SEEN /hpf 0-5 [facility] Basophils/100 WBC (Bld) 0.4 % 0-1 [facility] Bilirubin [Mass/Vol] 0.70 mg/dL 0.20-1.00 [facility] Comment on above: For patients on eltr ombopag therapy, use of Dimension Given TBIL is not recommended. Chloride [Moles/Vol] 105 mmol/L 98-107 [facility] Eosinophils/100 WBC (Bld) 0.2 % 0-5 [facility] Glucose [Mass/Vol] 99 mg/dL 74-106 [facility] Neutrophils (Bld) [#/Vol] 6.2 10*3/uL 2.0-7.7 [facility] Neutrophils/100 WBC (Bld) 76.6 % 47-70 [facility] Potassium [Moles/Vol] 4.0 mmol/L 3.5-5.1 [facility] Protein [Mass/Vol] 6.5 g/dL 6.4-8.2 [facility] Sodium [Moles/Vol] 137 mmol/L 136-145 [facility] WBC (Bld) [#/Vol] 8.1 10*3/uL 4.4-11.0 [facility] Bilirubin Test strip Ql (U)O rdered By: Jonathan Bedoya on 05-22-2023 Bilirubin Ql (U) Negative Negative [facility] Blood erythrocytes count (nu mber/volume)Ordered By: Jonathan Bedoya on 05-22-2023 RBC (Bld) [#/Vol] 4.46 10*6/uL 4.6-6.2 [facility] Blood hemoglobin measurement (mass/volume)Ordered By: Jonathan Bedoya on 05-22-2023 Hemoglobin (Bld) [Mass/Vol] 14.2 g/dL 13.0-16.5 [facility] Blood lymphocytes/100 leukoc ytesOrdered By: Jonathan Bedoya on 05-22-2023 Lymphocytes/100 WBC (Bld) 12.2 % 19-41 [facility] Blood monocytes/100 leukocyt esOrdered By: Jonathan Bedoya on 05-22-2023 Monocytes/100 WBC (Bld) 10.4 % 0-10 [facility] Blood platelet mean volumeOr dered By: Jonathan Bedoya on 05-22-2023 Platelet mean volume (Bld) [Entitic vol] 10.5 fL 6.2-12.0 [facility] Determination of erythrocyte mean corpuscular volume (MCV)Ordered By: Jonahtan Bedoya on 05-22-2023 MCV (RBC) [Entitic vol] 95.3 fL 80-94 [facility] Hematocrit Auto (Bld) [Volum e fraction]Ordered By: Jonathan Bedoya on 05-22-2023 Hematocrit (Bld) [Volume fraction] 42.5 % 40-54 [facility] Influenza virus A and B and SARS-CoV-2 (COVID-19) Ag panel - Upper respiratory specimOrdered By: Jonathan Bedoya on 05-22-2023 SARS-CoV-2 & FLU Antigen (Rapid) SARS-CoV-2 (COVID 19) [facility] Ketones Test strip Ql (U)Ord ered By: Jonathan Bedoya on 05-22-2023 Ketones Ql (U) 50 mg/dl Negative [facility] - Chemistry and C hemistry - challengeOrdered By: Jonathan Bedoya on 05-22-2023 ALP [Catalytic activity/Vol] 55 U/L 45-117 [facility] ALT [Catalytic activity/Vol] 26 U/L 16-61 [facility] CO2 [Moles/Vol] 26.0 mmol/L 21.0-32.0 [facility] Globulin (S) [Mass/Vol] 2.8 g/dL 2.2-4.2 [facility] Urea nitrogen/Creatinine [Mass ratio] 10.8 mg/mg 10-20 [facility] - Hematology and Cell countsOrdered By: Jonathan Bedoya on 05-22-2023 Erythrocyte distribution width (RBC) [Entitic vol] 44.6 fL 35.1-43.9 [facility] Erythrocyte distribution width (RBC) [Ratio] 12.7 % 11.6-14.6 [facility] Immature granulocytes/100 WBC (Bld) 0.200 % 0.0-0.9 [facility] Comment on above: IG% - Immature Granu locytes (promyelocytes, myelocytes and metamyelocytes) > 1% indicates that a LEFT SHIFT is Present. MCH (RBC) [Entitic mass] 31.8 pg 27.0-32.0 [facility] Nucleated RBC/100 WBC (Bld) [Ratio] 0 % 0-5 [facility] MCHC Auto (RBC) [Mass/Vol]Or dered By: Jonathan Bedoya on 05-22-2023 MCHC (RBC) [Mass/Vol] 33.4 g/dL 32-36 [facility] Mucus LM Ql (Urine sed)Order ed By: Jonathan Bedoya on 05-22-2023 Mucus Ql (Urine sed) 0 SEEN /hpf [facility] Nitrite Test strip Ql (U)Ord ered By: Jonathan Bedoya on 05-22-2023 Nitrite Ql (U) Negative Negative [facility] No Panel InformationOrdered By: Jonathan Bedoya on 05-22-2023 Estimated Creatinine Clearance Calc 60.85 ml/min [facility] Estimated GFR (MDRD) Amer 113 mL/min >60 [facility] Comment on above: GFR Calc Estimated GFR (MDRD) Non-Af Amer 94 mL/min >60 [facility] Comment on above: Non- GFR Calc Troponin I High Sensitivity 9 pg/mL 3.0-78.0 [facility] Comment on above: Please Note: New Maegan t Units and Gender Specific Reference Ranges. For more information see Policy Stat Procedure Given High Sensitivity Troponin (TNIH) and attachments. Platelets bldOrdered By: Tawanda Bedoya on 05-22-2023 Platelets (Bld) [#/Vol] 177 10*3/uL 150-450 [facility] Protein Test strip Ql (U)Ord ered By: Jonathan Bedoya on 05-22-2023 Protein Ql (U) Negative Negative [facility] Serum or plasma albumin morris urement (mass/volume)Ordered By: Jonathan Bedoya on 05-22-2023 Albumin [Mass/Vol] 3.7 g/dL 3.2-5.0 [facility] Serum or plasma albumin/glob ulin mass ratioOrdered By: Jonathan Bedoya on 05-22-2023 Albumin/Globulin [Mass ratio] 1.3 {ratio} 0.9-2.4 [facility] Serum or plasma calcium morris urement (mass/volume)Ordered By: Jonathan Bedoya on 05-22-2023 Calcium [Mass/Vol] 8.7 mg/dL 8.5-10.1 [facility] Serum or plasma creatinine m easurement (mass/volume)Ordered By: Jonathan Bedoya on 05-22-2023 Creatinine [Mass/Vol] 0.83 mg/dL 0.70-1.30 [facility] Comment on above: The validity of the calculated GFR & GFRAA in patients over 70 years has not been determined. Clinical correlation is essential. Serum or plasma urea nitroge n measurement (mass/volume)Ordered By: Jonathan Bedoya on 05-22-2023 Urea nitrogen [Mass/Vol] 9 mg/dL 7-18 [facility] Squamous epithelial cells de tection in urine sediment by light microscopyOrdered By: Jonathan Bedoya on 05-22-2023 Epithelial cells.squamous LM Ql (Urine sed) 0 SEEN /hpf 0-5 [facility] Thin prep Papanicolaou smear with manual screeningOrdered By: Jonathan Bedoya on 05-22-2023 Thin prep Papanicolaou smear with manual screening 14 U/L 15-37 [facility] Thin prep Papanicolaou smear with manual screening 6 5-15 [facility] Urine blood detectionOrdered By: Jonathan Bedoya on 05-22-2023 RBC Ql (U) Negative Negative [facility] RBC Ql (U) 0 SEEN /hpf 0-5 [facility] Urine clarityOrdered By: Tawanda Bedoya on 05-22-2023 Clarity (U) Clear Clear [facility] Urine color determinationOrd ered By: Jonathan Bedoya on 05-22-2023 Color (U) Yellow Yellow [facility] Urine glucose detectionOrder ed By: Jonathan Bedoya on 05-22-2023 Glucose Ql (U) Normal mg/dl Normal [facility] Urine leukocyte esterase det ection by dipstickOrdered By: Jonathan Bedoya on 05-22-2023 Leukocyte esterase Test strip Ql (U) 25 /ul Negative [facility] Urine pHOrdered By: Jonathan ba on 05-22-2023 pH (U) 6.0 [pH] 5.0 - 8.0 [facility] Urine sediment bacteria coun t by microscopy (number/high power field)Ordered By: Jonathan Bedoya on 05-22-2023 Bacteria LM.HPF (Urine sed) [#/Area] 0 /[HPF] None Seen [facility] Urine specific gravity measu rementOrdered By: Jonathan Bedoya on 05-22-2023 Specific gravity (U) [Rel density] 1.020 1.002-1.030 [facility] Urobilinogen Auto test strip Ql (U)Ordered By: Jonathan Bedoya on 05-22-2023 Urobilinogen Ql (U) Normal mg/dl Normal [facility] VITAMIN B12 BLOODon 10-08-19 23 Cobalamin (Vitamin B12) [Mass/Vol] 792 pg/mL 232 - 1,245 pg/mL [facility] Massimo 04-07-2022 CNPN Telephone ([place]) MELVIN RIDDLE ([id number]) 1940 M Date Time Provider Department 04/07/22 [...] Meds Comments as of 01/06/2019: Uses [facility] Problem List As Of Date 04/07/2022 Noted Resolved Pulmonary emphysema (HCC) [J43.9] 10/11/2017 Encounter Status:Closed by ARELIS BEE on 04/07/[address] [facility] VITAMIN D 25 HYDROXYon 03-23 25-hydroxyvitamin D3 [Mass/Vol] 44.3 ng/mL >=30.0 ng/mL [facility] 25(OH)D3 SerPl-mCncon 2021 25-hydroxyvitamin D3 [Mass/Vol] 44.3 ng/mL Normal >=30.0 [facility] Comment on above: Order Comment: Speci men Type: BLOOD SPECIMEN Ordering Facility: [facility] Address: [address] [place] [id number] Result Comment: Clas sification of 25 [place] Vitamin D status: Deficiency: <= 20.0 ng/ml. Insufficiency: 21.0-29.0 ng/ml. Sufficiency: >= 30.0 ng/ml. Performed By: #### 1 989-3 #### [facility] CLIA [id number] [address] [place] CBC panel Auto (Bld)on 03-20 Erythrocyte distribution width (RBC) [Ratio] 13.2 % 11.5 - 15.0 % [facility] Hematocrit (Bld) [Volume fraction] 44.6 % 39.0 - 51.0 % [facility] Hemoglobin (Bld) [Mass/Vol] 14.9 g/dL 13.0 - 17.0 g/dL [facility] MCH (RBC) [Entitic mass] 31.8 pg 26. 0 - 34.0 pg [facility] MCHC (RBC) [Mass/Vol] 33.4 g/dL 30.5 - 36.0 g/dL [facility] MCV (RBC) [Entitic vol] 95.3 fL 80.0 - 100.0 fL [facility] Nucleated RBC (Bld) [#/Vol] <0.01 k/uL [facility] Platelet mean volume (Bld) [Entitic vol] 11.2 fL 9.0 - 12.7 fL [facility] Platelets (Bld) [#/Vol] 211 10*3/uL 150 - 400 k/uL [facility] RBC (Bld) [#/Vol] 4.68 10*6/uL 4.20 - 6.0 0 m/uL [facility] WBC (Bld) [#/Vol] 6.38 10*3/uL 3.70 - 11. 00 k/uL [facility] Erythrocyte distribution width (RBC) [Ratio] 13.2 % Normal 11.5-15.0 [facility] Comment on above: Order Comment: Speci yola Type: BLOOD SPECIMEN Ordering Facility: [facility] Address: [address] [place] [address] Performed By: #### 5 8410-2 #### [facility] CLIA [id number] [address] [place] [address] STATES OF [facility] Hematocrit (Bld) [Volume fraction] 44.6 % Normal 39.0-51.0 [facility] Comment on above: Order Comment: Speci men Type: BLOOD SPECIMEN Ordering Facility: [facility] Address: [address] [place] [address] Performed By: #### 5 8410-2 #### [facility] CLIA [id number] 1 [place] [address] [place] Hemoglobin (Bld) [Mass/Vol] 14.9 g/dL Normal 13.0-17.0 [facility] Comment on above: Order Comment: Speci men Type: BLOOD SPECIMEN Ordering Facility: [facility] Address: [address] [place] [address] Performed By: #### 5 8410-2 #### [facility] CLIA [id number] [address] MCH (RBC) [Entitic mass] 31.8 pg Normal 26.0-34.0 [facility] Comment on above: Order Comment: Speci men Type: BLOOD SPECIMEN Ordering Facility: [facility] Address: [address] [place] [address] Performed By: #### 5 8410-2 #### [facility] CLIA [id number] [address] MCHC (RBC) [Mass/Vol] 33.4 g/dL Normal 30.5-36.0 [facility] Comment on above: Order Comment: Speci men Type: BLOOD SPECIMEN Ordering Facility: [facility] Address: [address] [place] [address] Performed By: #### 5 8410-2 #### [facility] CLIA [id number] [address] MCV (RBC) [Entitic vol] 95.3 fL Normal 80.0-100.0 [facility] Comment on above: Order Comment: Speci men Type: BLOOD SPECIMEN Ordering Facility: [facility] Address: [address] [place] [address] Performed By: #### 5 8410-2 #### [facility] CLIA [id number] [address] Nucleated RBC (Bld) [#/Vol] 10*3/uL Normal <0.01 [facility] Comment on above: Order Comment: Speci men Type: BLOOD SPECIMEN Ordering Facility: [facility] Address: [address] [place] [address] Performed By: #### 5 8410-2 #### [facility] CLIA [id number] [address] Platelet mean volume (Bld) [Entitic vol] 11.2 fL Normal 9.0-12.7 [facility] Comment on above: Order Comment: Speci men Type: BLOOD SPECIMEN Ordering Facility: [facility] Address: [address] [place] [address] Performed By: #### 5 8410-2 #### [facility] CLIA [id number] [address] [place] Platelets (Bld) [#/Vol] 211 10*3/uL Normal 150-400 [facility] Comment on above: Order Comment: Speci men Type: BLOOD SPECIMEN Ordering Facility: [facility] Address: [address] [place] [address] Performed By: #### 5 8410-2 #### [facility] CLIA [id number] [address] RBC (Bld) [#/Vol] 4.68 10*6/uL Normal 4.20-6.00 [facility] Comment on above: Order Comment: Speci men Type: BLOOD SPECIMEN Ordering Facility: [facility] Address: [address] [place] [address] Performed By: #### 5 8410-2 #### [facility] CLIA [id number] [address] WBC (Bld) [#/Vol] 6.38 10*3/uL Normal 3.70-11.00 [facility] Comment on above: Order Comment: Speci men Type: BLOOD SPECIMEN Ordering Facility: [facility] Address: [address] [place] [address] Performed By: #### 5 8410-2 #### [facility] CLIA [id number] [address] [place] CNOVon 03-20-2022 CNOV Office Visit (GERIST) MELVIN RIDDLE ([id number]) 1940 M Date Time Provider Department 03/20/22 9:20 AM CATHERINE CROW During your visit today, we recorded the following information about you: Temperature Pulse Blood pressure Weight 97.7 degrees 68/minute 137/59 68.4 kg Catherine Crow MD 04/20/2022 10:22 AM Signed Catherine Crow MD [facility] [address] [place] [address] COMPREHENSIVE GERIATRICS ASSESSMENT Patient presents with: Geriatric [...] more steeply. 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 He needs a "shai at work" to help guide him if he needs. Does not take any medications. Has forgotten to turn off stove. Per his last PCP note, he also did get lost driving. Home: lives at home with his daughter Social Engagement: pt works at [employer] in the [employer] department Hobbies: walking the dogs. Likes to [...] been discussed? Yes Is a power of bill adjuster in place for financial needs? Yes Is a power of bill adjuster in place for health care decisions? Yes [...] A, Transportation:D, Medications: D, Handle Finances: A. (Cambridge scale): 0 Mobility Aid: None Falls: .: Falls in the last 12 months: Positive: 1 fall. If + falls: Late Spring/Early Summer - in the garage was bending over trying to grab something after he was leaning over to slate picker the beer can and (more content not included)... Normal [facility] Comprehensive metabolic 2000 panelon 03-20-2022 Albumin [Mass/Vol] 5.0 g/dL High 3.9 - 4.9 g/dL [facility] ALP [Catalytic activity/Vol] 50 U/L 38 - 113 U/L [facility] ALT With P-5'-P [Catalytic activity/Vol] 20 U/L 10 - 54 U/L [facility] Anion gap [Moles/Vol] 10 mmol/L 9 - 18 mmol/L [facility] AST With P-5'-P [Catalytic activity/Vol] 22 U/L 14 - 40 U/L [facility] Bilirubin [Mass/Vol] 0.6 mg/dL 0.2 - 1 .3 mg/dL [facility] Calcium [Mass/Vol] 9.6 mg/dL 8.5 - 10. 2 mg/dL [facility] Chloride [Moles/Vol] 103 mmol/L 97 - 10 5 mmol/L [facility] CO2 [Moles/Vol] 26 mmol/L 22 - 30 mmol/L [facility] Creatinine [Mass/Vol] 0.78 mg/dL 0.73 - 1.22 mg/dL [facility] Estimated Glomerular Filtration Rate 89 mL/min/1.73m >=60 mL/min/1.73m [facility] Glucose [Mass/Vol] 89 mg/dL 74 - 99 mg/dL [facility] Potassium [Moles/Vol] 4.9 mmol/L 3.7 - 5.1 mmol/L [facility] Protein [Mass/Vol] 6.9 g/dL 6.3 - 8.0 g/dL [facility] Sodium [Moles/Vol] 139 mmol/L 136 - 144 mmol/L [facility] Urea nitrogen [Mass/Vol] 12 mg/dL 9 - 24 mg/d L [facility] Albumin [Mass/Vol] 5.0 g/dL High 3.9-4.9 [facility] Comment on above: Order Comment: Speci men Type: BLOOD SPECIMEN Ordering Facility: [facility] Address: [address] [place] [address] Performed By: #### 3 016-3, 21040-5, 3023-12, 2132-02 #### [facility] CLIA [id number] [address] OF [facility] ALP [Catalytic activity/Vol] 50 U/L Normal 38-113 [facility] Comment on above: Order Comment: Speci men Type: BLOOD SPECIMEN Ordering Facility: [facility] Address: [address] [place] [address] Performed By: #### 3 016-3, 76699-2, 3023-12, 2132-02 #### [facility] CLIA [id number] [address] STATES OF [facility] ALT With P-5'-P [Catalytic activity/Vol] 20 U/L Normal 10-54 [facility] Comment on above: Order Comment: Speci men Type: BLOOD SPECIMEN Ordering Facility: [facility] Address: [address] [place] [address] Performed By: #### 3 016-3, 46516-2, 3023-12, 2132-02 #### [facility] CLIA [id number] [address] STATES OF [facility] Anion gap [Moles/Vol] 10 mmol/L Normal 9-18 [facility] Comment on above: Order Comment: Speci men Type: BLOOD SPECIMEN Ordering Facility: [facility] Address: [address] [place] [address] Performed By: #### 3 016-3, 90092-4, 3023-12, 2132-02 #### [facility] CLIA [id number] 1 [place] [address] [place] AST With P-5'-P [Catalytic activity/Vol] 22 U/L Normal 14-40 [facility] Comment on above: Order Comment: Speci men Type: BLOOD SPECIMEN Ordering Facility: [facility] Address: [address] [place] [address] Performed By: #### 3 016-3, 90183-6, 3023-12, 2132-02 #### [facility] CLIA [id number] 1 [place] [address] [place] Bilirubin [Mass/Vol] 0.6 mg/dL Normal 0.2-1.3 [facility] Comment on above: Order Comment: Speci men Type: BLOOD SPECIMEN Ordering Facility: [facility] Address: [address] [place] [address] Performed By: #### 3 016-3, 06227-3, 3023-12, 2132-02 #### [facility] CLIA [id number] 1 [place] [address] [place] Calcium [Mass/Vol] 9.6 mg/dL Normal 8.5-10.2 [facility] Comment on above: Order Comment: Speci men Type: BLOOD SPECIMEN Ordering Facility: [facility] Address: [address] [place] [address] Performed By: #### 3 016-3, 87030-5, 3023-12, 2132-02 #### [facility] CLIA [id number] 1 [place] [address] [place] Chloride [Moles/Vol] 103 mmol/L Normal 97-105 [facility] Comment on above: Order Comment: Speci men Type: BLOOD SPECIMEN Ordering Facility: [facility] Address: [address] [place] [address] Performed By: #### 3 016-3, 53110-9, 7, 2132-02 #### [facility] CLIA [id number] [address] [place] CO2 [Moles/Vol] 26 mmol/L Normal 22-30 [facility] Comment on above: Order Comment: Paula aceves Type: BLOOD SPECIMEN Ordering Facility: [facility] Address: [address] [place] [address] Performed By: #### 3 016-3, 37911-9, 302-7, 2132-02 #### [facility] CLIA [id number] [address] [place] Creatinine [Mass/Vol] 0.78 mg/dL Normal 0.73-1.22 [facility] Comment on above: Order Comment: Paula aceves Type: BLOOD SPECIMEN Ordering Facility: [facility] Address: [address] [place] [address] Performed By: #### 3 016-3, 08563-9, 7, 2132-02 #### [facility] CLIA [id number] [address] ESTIMATED GLOMERULAR FILTRATION RATE 89 mL/min/1.73m??? Normal >=60 [facility] Comment on above: Order Comment: Paula aceves Type: BLOOD SPECIMEN Ordering Facility: [facility] Address: [address] [place] [address] Result Comment: Lisa mated Glomerular Filtration Rate [...] actual GFR. Performed By: #### 3 016-3, 11647-2, 3023-7, 2132-02 #### [facility] CLIA [id number] [address] [place] Glucose [Mass/Vol] 89 mg/dL Normal 74-99 [facility] Comment on above: Order Comment: Paula men Type: BLOOD SPECIMEN Ordering Facility: [facility] Address: [address] [place] [address] Result Comment: The [place] Diabetes Association (ADA) provides guidance for cutoff [...] Standards of Medical Care in Diabetes 2016, [place] Diabetes Association. Diabetes Care. 2016.39(Suppl 1). Performed By: #### 3 016-3, 71529-8, 3023-12, 2132-02 #### [facility] CLIA [id number] 1 [place] [address] [place] Potassium [Moles/Vol] 4.9 mmol/L Normal 3.7-5.1 [facility] Comment on above: Order Comment: Speci men Type: BLOOD SPECIMEN Ordering Facility: [facility] Address: [address] [place], [place] [address] Performed By: #### 3 016-3, 56205-0, 3023-12, 2132-02 #### [facility] CLIA [id number] 1 [place] [address] [place] Protein [Mass/Vol] 6.9 g/dL Normal 6.3-8.0 [facility] Comment on above: Order Comment: Speci men Type: BLOOD SPECIMEN Ordering Facility: [facility] Address: [address] [place], [place] [address] Performed By: #### 3 016-3, 07817-8, 3023-12, 2132-02 #### [facility] CLIA [id number] 1 [place] [address] [place] Sodium [Moles/Vol] 139 mmol/L Normal 136-144 [facility] Comment on above: Order Comment: Speci men Type: BLOOD SPECIMEN Ordering Facility: [facility] Address: [address] [place], [place] [address] Performed By: #### 3 016-3, 29006-0, 3023-12, 2132-02 #### [facility] CLIA [id number] [address] STATES OF [facility] Urea nitrogen [Mass/Vol] 12 mg/dL Normal 9-24 [facility] Comment on above: Order Comment: Speci men Type: BLOOD SPECIMEN Ordering Facility: [facility] Address: [address] [place] [address] Performed By: #### 3 016-3, 85550-1, 3023-12, 2132-02 #### [facility] CLIA [id number] [address] [place] T4 FREE/FREE THYROXon 2021 Free T4 [Mass/Vol] 1.5 ng/dL 0.9 - 1.7 ng/dL [facility] T4 Free SerPl-mCncon 022 Free T4 [Mass/Vol] 1.5 ng/dL Normal 0.9-1.7 [facility] Comment on above: Order Comment: Speci men Type: BLOOD SPECIMEN Ordering Facility: [facility] Address: [address] [place] [address] Performed By: #### 3 016-3, 37902-8, 3023-12, 2132-02 #### [facility] CLIA [id number] [address] [place] TSH BLDon 03-20-2022 TSH Qn 0.314 m[IU]/L 0.270 - 4.200 mIU/L [facility] TSH SerPl-aCncon 03-20-2022 TSH Qn 0.314 m[IU]/L Normal 0.270-4.200 [facility] Comment on above: Order Comment: Speci men Type: BLOOD SPECIMEN Ordering Facility: [facility] Address: [address] [place], [place] [address] Performed By: #### 3 016-3, 61637-3, 3023-12, 2132-02 #### [facility] CLIA [id number] 1 [place] [address] [place] VITAMIN B12 BLOODon 03-20-20 22 Cobalamin (Vitamin B12) [Mass/Vol] 161 pg/mL Low 232 - 1,245 pg/mL [facility] Vit B12 SerPl-mCncon 022 Cobalamin (Vitamin B12) [Mass/Vol] 161 pg/mL Low 232-1245 [facility] Comment on above: Order Comment: Speci men Type: BLOOD SPECIMEN Ordering Facility: [facility] Address: [address] [place] [address] Performed By: #### 3 016-3, 72409-8, 7, 2132-02 #### [facility] CLIA [id number] 1 [place] [id number] [place] Vital Signs Date Time Vital Sign Value Performing Clinician Faci lity 01-08-2025 19:51-0400 Body temperature 99 [degF] Dr. Jacquelin Spaulding MD Work Phone: [facility] 01-08-2025 19:51-0400 Diastolic blood pressure 60 mm[Hg] Dr. Jacqeulin Spaulding MD Work Phone: [facility] 01-08-2025 19:51-0400 Heart rate 82 /min Dr. Jacquelin Spaulding MD Work Phone: [facility] 01-08-2025 19:51-0400 Respiratory rate 20 /min Dr. Jacquelin Spaulding MD Work Phone: [facility] 01-08-2025 19:51-0400 SaO2% (BldA) [Mass fraction] 1 % Dr. Jacquelin Spaulding MD Work Phone: [facility] 01-08-2025 19:51-0400 Systolic blood pressure 107 mm[Hg] Dr. Jacquelin Spaulding MD Work Phone: [facility] 01-08-2025 17:34-0400 Inhaled oxygen flow rate 5 L/min Dr. Jacquelin Spaulding MD Work Phone: 5(366)611-319764 [place] [address] 01-08-2025 17:30-0400 Body mass index (BMI) [Ratio] 28.1 kg/m2 Dr. Jacquelin Spaulding MD Work Phone: 0(316)959-671464 [place] [address] 01-08-2025 17:30-0400 Body weight 79.[address] Jacquelin Spaulding MD Work Phone: 4(168)784-919264 [place] [address] 01-08-2025 16:31-0400 Body height 167.[address] Jacquelin Spaulding MD Work Phone: 9(846)423-804564 [place] [address] 01-07-2025 22:50-0400 Body temperature 97 [degF] Dr. Jacquelin Spaulding MD Work Phone: 6(677)726-981764 [place] [address] 01-07-2025 22:50-0400 Diastolic blood pressure 79 mm[Hg] Dr. Jacquelin Spaulding MD Work Phone: 6(125)413-710864 [place] [address] 01-07-2025 22:50-0400 Heart rate 89 /min Dr. Jacquelin Spaulding MD Work Phone: 1(635)379-350464 [place] [address] 01-07-2025 22:50-0400 Respiratory rate 16 /min Dr. Jacquelin Spaulding MD Work Phone: 3(878)181-278064 [place] [address] 01-07-2025 22:50-0400 SaO2% (BldA) [Mass fraction] 92 % Dr. Jacquelin Spaulding MD Work Phone: 3(508)108-978364 [place] [address] 01-07-2025 22:50-0400 Systolic blood pressure 124 mm[Hg] Dr. Jcaquelin Spaulding MD Work Phone: 5(150)297-676564 [place] [address] 01-07-2025 22:37-0400 Inhaled oxygen flow rate 2 L/min Dr. Jacquelin Spaulding MD Work Phone: 6(677)923-156364 [place] [address] 01-07-2025 22:00-0400 Body temperature 98.1 [degF] Dr. Jacquelin Spaulding MD Work Phone: 6(023)788-459864 [place] [address] 01-07-2025 22:00-0400 Diastolic blood pressure 70 mm[Hg] Dr. Jacquelin Spaulding MD Work Phone: [facility] 01-07-2025 22:00-0400 Heart rate 88 /min Dr. Jacquelin Spaulding MD Work Phone: [facility] 01-07-2025 22:00-0400 SaO2% (BldA) [Mass fraction] 94 % Dr. Jacquelin Spaulding MD Work Phone: [facility] 01-07-2025 22:00-0400 Systolic blood pressure 130 mm[Hg] Dr. Jacquelin Spaulding MD Work Phone: [facility] 01-07-2025 20:20-0400 Body height 167.[address] Jacquelin Spaulding MD Work Phone: [facility] 01-07-2025 20:20-0400 Body mass index (BMI) [Ratio] 27.2 kg/m2 Dr. Jacquelin Spaulding MD Work Phone: [facility] 01-07-2025 20:20-0400 Body weight 76.[address] Jacquelin Spaulding MD Work Phone: [facility] 11-09-2024 13:21-0400 Body mass index (BMI) [Ratio] 30.21 kg/m2 Jacquelin Spaulding MD Work Phone: [facility] 11-09-2024 13:21-0400 Body weight 78.6 kg Jacquelin Spaulding MD Work Phone: [facility] 11-09-2024 13:21-0400 Diastolic blood pressure 74 mm[Hg] Jacquelin Spaulding MD Work Phone: [facility] 11-09-2024 13:21-0400 Heart rate 80 /min Jacquelin Spaulding MD Work Phone: [facility] 11-09-2024 13:21-0400 Respiratory rate 14 /min Jacquelin Spaulding MD Work Phone: [facility] 11-09-2024 13:21-0400 Systolic blood pressure 128 mm[Hg] Jacquelin Spaulding MD Work Phone: [facility] 08-21-2024 13:43-0500 Body mass index (BMI) [Ratio] 31.02 kg/m2 Jacquelin Spaulding MD Work Phone: [facility] 08-21-2024 13:43-0500 Body weight 80.7 kg Jacquelin Spaulding MD Work Phone: [facility] 08-21-2024 13:43-0500 Diastolic blood pressure 76 mm[Hg] Jacquelin Spaulding MD Work Phone: [facility] 08-21-2024 13:43-0500 Heart rate 92 /min Jacquelin Spaulding MD Work Phone: [facility] 08-21-2024 13:43-0500 Respiratory rate 20 /min Jacquelin Spaulding MD Work Phone: [facility] 08-21-2024 13:43-0500 Systolic blood pressure 130 mm[Hg] Jacquelin Spaulding MD Work Phone: [facility] 07-14-2024 13:20-0500 Body mass index (BMI) [Ratio] 31.25 kg/m2 Jacquelin Spaulding MD Work Phone: [facility] 07-14-2024 13:20-0500 Body weight 81.3 kg Jacquelin Spaulding MD Work Phone: [facility] 07-14-2024 13:20-0500 Diastolic blood pressure 80 mm[Hg] Jacquelin Spaulding MD Work Phone: [facility] 07-14-2024 13:20-0500 Heart rate 74 /min Jacquelin Spaulding MD Work Phone: [facility] 07-14-2024 13:20-0500 Respiratory rate 16 /min Jacquelin Spaulding MD Work Phone: [facility] 07-14-2024 13:20-0500 Systolic blood pressure 130 mm[Hg] Jacquelin Spaulding MD Work Phone: [facility] 05-08-2024 13:34-0500 Body height 161.3 cm Jacquelin Spaulding MD Work Phone: [facility] 05-08-2024 13:34-0500 Body mass index (BMI) [Ratio] 29.25 kg/m2 Jacquelin Spaulding MD Work Phone: [facility] 05-08-2024 13:34-0500 Body weight 76.1 kg Jacquelin Spaulding MD Work Phone: [facility] 05-08-2024 13:34-0500 Diastolic blood pressure 68 mm[Hg] Jacquelin Spaulding MD Work Phone: [facility] 05-08-2024 13:34-0500 Heart rate 84 /min Jacquelin Spaulding MD Work Phone: [facility] 05-08-2024 13:34-0500 Respiratory rate 18 /min Jacquelin Spaulding MD Work Phone: [facility] 05-08-2024 13:34-0500 Systolic blood pressure 120 mm[Hg] Jacquelin Spaulding MD Work Phone: [facility] 02-03-2024 09:57-0400 Body mass index (BMI) [Ratio] 28.42 kg/m2 Jacquelin Spaulding MD Work Phone: [facility] 02-03-2024 09:57-0400 Body weight 75.1 kg Jacquelin Spaulding MD Work Phone: [facility] 02-03-2024 09:57-0400 Diastolic blood pressure 78 mm[Hg] Jacquelin Spaulding MD Work Phone: [facility] 02-03-2024 09:57-0400 Heart rate 76 /min Jacquelin Spaulding MD Work Phone: [facility] 02-03-2024 09:57-0400 Respiratory rate 18 /min Jacquelin Spaulding MD Work Phone: [facility] 02-03-2024 09:57-0400 Systolic blood pressure 118 mm[Hg] Jacquelin Spaulding MD Work Phone: [facility] 01-28-2024 09:54-0400 Body temperature 97.39 [degF] Gabrielle Montez SOFTWARE SUPPORT ANALYST.EMBALMER APPRENTICE Work Phone: [facility] 01-28-2024 09:54-0400 Diastolic blood pressure 77 mm[Hg] Gabrielle Montez SOFTWARE SUPPORT ANALYST.EMBALMER APPRENTICE Work Phone: [facility] 01-28-2024 09:54-0400 Heart rate 72 /min Gabrielle Montez SOFTWARE SUPPORT ANALYST.EMBALMER APPRENTICE Work Phone: [facility] 01-28-2024 09:54-0400 Respiratory rate 18 /min Gabrielle Montez SOFTWARE SUPPORT ANALYST.EMBALMER APPRENTICE Work Phone: [facility] 01-28-2024 09:54-0400 SaO2% (BldA) [Mass fraction] 93 % Gabrielle Montez SOFTWARE SUPPORT ANALYST.EMBALMER APPRENTICE Work Phone: [facility] 01-28-2024 09:54-0400 Systolic blood pressure 132 mm[Hg] Gabrielle Montez SOFTWARE SUPPORT ANALYST.EMBALMER APPRENTICE Work Phone: [facility] 11-05-2023 16:12-0400 Body mass index (BMI) [Ratio] 28.37 kg/m2 Jacquelin Spaulding MD Work Phone: [facility] 11-05-2023 16:12-0400 Body weight 74.98 kg Jacquelin Spaulding MD Work Phone: [facility] 11-05-2023 16:12-0400 Diastolic blood pressure 80 mm[Hg] Jacquelin Spaulding MD Work Phone: [facility] 11-05-2023 16:12-0400 Heart rate 68 /min Jacquelin Spaulding MD Work Phone: [facility] 11-05-2023 16:12-0400 Respiratory rate 16 /min Jacquelin Spaulding MD Work Phone: [facility] 11-05-2023 16:12-0400 Systolic blood pressure 126 mm[Hg] Jacquelin Spaulding MD Work Phone: [facility] 05-22-2023 18:53-0500 Diastolic blood pressure 73 mm[Hg] [facility] 05-22-2023 18:53-0500 Heart rate 96 /min [facility] 05-22-2023 18:53-0500 Inhaled oxygen flow rate 2 L/min [facility] 05-22-2023 18:53-0500 Respiratory rate 18 /min [facility] 05-22-2023 18:53-0500 SaO2% (BldA) [Mass fraction] 94 % [facility] 05-22-2023 18:53-0500 Systolic blood pressure 142 mm[Hg] [facility] 05-22-2023 18:09-0500 Body temperature 99.8 [degF] [facility] 05-22-2023 17:27-0500 Body height 167.64 cm [facility] 05-22-2023 17:27-0500 Body mass index (BMI) [Ratio] 25.4 kg/m2 [facility] 05-22-2023 17:27-0500 Body weight 71.62 kg [facility] 10-06-2022 13:25-0400 Body weight 71.12 kg Jacquelin Spaulding MD Work Phone: [facility] 10-06-2022 13:25-0400 Diastolic blood pressure 78 mm[Hg] Jacquelin Spaulding MD Work Phone: [facility] 10-06-2022 13:25-0400 Heart rate 66 /min Jacquelin Spaulding MD Work Phone: [facility] 10-06-2022 13:25-0400 Respiratory rate 16 /min Jacquelin Spaulding MD Work Phone: [facility] 10-06-2022 13:25-0400 Systolic blood pressure 120 mm[Hg] Jacquelin Spaulding MD Work Phone: [facility] 06-10-2022 08:30-0500 Body weight 70.76 kg Marion Blair APRN.CNP Work Phone: [facility] 06-10-2022 08:30-0500 Diastolic blood pressure 80 mm[Hg] Marion Blair APRN.EMBALMER APPRENTICE Work Phone: [facility] 06-10-2022 08:30-0500 Heart rate 72 /min Marion Vizcainof SOFTWARE SUPPORT ANALYST.EMBALMER APPRENTICE Work Phone: [facility] 06-10-2022 08:30-0500 Respiratory rate 16 /min Marion Blair SOFTWARE SUPPORT ANALYST.EMBALMER APPRENTICE Work Phone: [facility] 06-10-2022 08:30-0500 Systolic blood pressure 150 mm[Hg] Marion Vizcainof SOFTWARE SUPPORT ANALYST.EMBALMER APPRENTICE Work Phone: [facility] 04-22-2022 09:35-0400 Body temperature 99.5 [degF] Waqas Olmos SOFTWARE SUPPORT ANALYST.EMBALMER APPRENTICE Work Phone: [facility] 04-22-2022 09:35-0400 Body weight 68.49 kg Waqas Olmos SOFTWARE SUPPORT ANALYST.EMBALMER APPRENTICE Work Phone: [facility] 04-22-2022 09:35-0400 Diastolic blood pressure 68 mm[Hg] Waqas Olmos SOFTWARE SUPPORT ANALYST.EMBALMER APPRENTICE Work Phone: [facility] 04-22-2022 09:35-0400 Heart rate 78 /min Waqas Olmos SOFTWARE SUPPORT ANALYST.EMBALMER APPRENTICE Work Phone: [facility] 04-22-2022 09:35-0400 Respiratory rate 16 /min Waqas Olmos SOFTWARE SUPPORT ANALYST.EMBALMER APPRENTICE Work Phone: [facility] 04-22-2022 09:35-0400 SaO2% (BldA) [Mass fraction] 94 % Waqas Olmos SOFTWARE SUPPORT ANALYST.EMBALMER APPRENTICE Work Phone: [facility] 04-22-2022 09:35-0400 Systolic blood pressure 122 mm[Hg] Waqas Olmos SOFTWARE SUPPORT ANALYST.EMBALMER APPRENTICE Work Phone: [facility] 04-21-2022 15:33-0400 Body weight 68.13 kg Vikas Everett MD Work Phone: [facility] 04-21-2022 15:33-0400 Diastolic blood pressure 70 mm[Hg] Vikas Everett MD Work Phone: [facility] 04-21-2022 15:33-0400 Heart rate 76 /min Vikas Everett MD Work Phone: [facility] 04-21-2022 15:33-0400 Respiratory rate 16 /min Vikas Everett MD Work Phone: [facility] 04-21-2022 15:33-0400 SaO2% (BldA) [Mass fraction] 97 % Vikas Everett MD Work Phone: [facility] 04-21-2022 15:33-0400 Systolic blood pressure 136 mm[Hg] Vikas Everett MD Work Phone: [facility] 03-20-2022 09:39-0400 Body temperature 97.7 [degF] Catherine Crow MD Work Phone: [facility] 03-20-2022 09:39-0400 Body weight 68.4 kg Catherine Crow MD Work Phone: [facility] 03-20-2022 09:39-0400 Diastolic blood pressure 59 mm[Hg] Catherine Crow MD Work Phone: [facility] 03-20-2022 09:39-0400 Heart rate 68 /min Catherine Crow MD Work Phone: [facility] 03-20-2022 09:39-0400 SaO2% (BldA) [Mass fraction] 97 % Catherine Crow MD Work Phone: [facility] 03-20-2022 09:39-0400 Systolic blood pressure 137 mm[Hg] Catherine Crow MD Work Phone: [facility] 02-27-2022 16:17-0400 Body weight 66.88 kg Jacquelin Spaulding MD Work Phone: [facility] 02-27-2022 16:17-0400 Diastolic blood pressure 70 mm[Hg] Jacquelin Spaulding MD Work Phone: [facility] 02-27-2022 16:17-0400 Heart rate 68 /min Jacqeulin Spaulding MD Work Phone: [facility] 02-27-2022 16:17-0400 Respiratory rate 14 /min Jacquelin Spaulding MD Work Phone: [facility] 02-27-2022 16:17-0400 SaO2% (BldA) [Mass fraction] 95 % Jacquelin Spaulding MD Work Phone: [facility] 02-27-2022 16:17-0400 Systolic blood pressure 120 mm[Hg] Jacquelin Spaulding MD Work Phone: [facility] Encounters Encounter Date Encounter Type Care Provider Facility Start: 01-08-2025 Evaluation and management of inpatient Dr. Jasbir Rivera MD -Progressive Care Unit Work Phone: Start: 01-07-2025 Non-patient / Non-visit Dr. Jillian Branch MD -[facility] Start: 01-07-2025 End: 01-07-2025 Admission to same day surgery center Dr. Satinder Branch MD -[facility] Work Phone: Start: 01-07-2025 End: 01-07-[address] Jacquelin Spaulding MD Work Phone: [facility] Start: 11-09-2024 End: 11-09-2024 Office outpatient visit 25 minutes Jacquelin Spaulding MD Work Phone: [facility] [place] Comment on above: Moderate dementia, u nspecified dementia type, unspecified whether behavioral, psychotic, or mood disturbance or anxiety (HCC) (Primary Dx); Need for vaccination; Vitamin B12 deficiency; Bilateral leg edema Start: 11-09-2024 End: 11-09-2024 ambulatory JACQUELIN SPAULDING Facility:[facility] Start: 10-05-2024 End: 10-05-2024 Follow-up encounter Jacquelin Spaulding MD Work Phone: [facility] [place] Comment on above: Results Start: 10-05-2024 ambulatory JACQUELIN SPAULDING Facil ity:[facility] Start: 10-05-2024 End: 10-05-2024 Subsequent hospital visit by physician Gi/Gu [facility] Work Phone: Radiology Comment on above: Esophageal dysphagia [R13.19] Start: 08-21-2024 End: 08-21-2024 ambulatory JACQUELIN SPAULDING Facility:[facility] Start: 08-21-2024 End: 08-21-2024 Patient encounter procedure Jacquelin Spaulding MD Work Phone: [facility] Comment on above: Bilateral leg edema (Primary Dx); Small vessel disease (HCC); Episode of gagging; Esophageal dysphagia; Mild dementia without behavioral disturbance, psychotic disturbance, mood disturbance, or anxiety, unspecified dementia type (HCC) Start: 08-17-2024 End: 08-17-2024 ambulatory JACQUELIN SPAULDING Facility:[facility] Start: 08-16-2024 End: 08-16-2024 ambulatory JACQUELIN SPAULDING Facility:[facility] Start: 08-16-2024 End: 08-16-2024 Telephone encounter Jacquelin Spaulding MD Work Phone: [address] [place] [address] Comment on above: Appointment Start: 07-14-2024 End: 07-14-2024 ambulatory Jacquelin Spaulding Facility:[facility] Start: 07-14-2024 End: 07-14-2024 Patient encounter procedure Jacquelin Spaulding MD Work Phone: [facility] Comment on above: Bilateral leg edema (Primary Dx); Mild dementia without behavioral disturbance, psychotic disturbance, mood disturbance, or anxiety, unspecified dementia type (HCC); Episode of gagging; Esophageal dysphagia Start: 07-10-2024 End: 07-10-2024 Telephone encounter Jacquelin Spaulding MD Work Phone: [facility] Comment on above: Appointment Start: 05-08-2024 End: 05-08-2024 ambulatory JACQUELIN SPAULDING Facility:[facility] Start: 05-08-2024 End: 05-08-2024 Patient encounter procedure Jacquelin Spaulding MD Work Phone: [facility] Comment on above: Encounter for Medica re annual wellness exam (Primary Dx); Mild dementia without behavioral disturbance, psychotic disturbance, mood disturbance, or anxiety, unspecified dementia type (HCC); Vitamin B12 deficiency; Regular alcohol consumption; Encounter for immunization Start: 02-03-2024 End: 02-03-2024 ambulatory JACQUELIN Rangel [facility] Facility:[facility] Start: 02-03-2024 End: 02-03-2024 Patient encounter procedure Jacquelin Spaulding MD Work Phone: [facility] Comment on above: Fall, sequela (Prima ry Dx); Mild dementia without behavioral disturbance, psychotic disturbance, mood disturbance, or anxiety, unspecified dementia type (HCC) Start: 01-31-2024 ambulatory Rasta Antonio RN Work Phone: [facility] Start: 01-31-2024 Follow-up encounter Rasta latham RN Work Phone: [facility] Comment on above: MARGARITA CAIN RN ( ER outreach follow up) Start: 01-28-2024 End: 01-28-2024 Emergency department patient visit [facility] Facility:[facility] Start: 01-28-2024 End: 01-28-2024 ambulatory JACQUELIN Rangel [facility] Facility:[facility] Start: 01-28-2024 End: 01-28-2024 Patient encounter procedure Gabrielle Montez SOFTWARE SUPPORT ANALYST.EMBALMER APPRENTICE Work Phone: [facility] Comment on above: Fall, initial encoun ter (Primary Dx) Start: 01-21-2024 Refill Jacquelin marshall MD Work Phone: [facility] [place] Comment on above: Refill Request Start: 01-17-2024 ambulatory [facility] [place] Start: 01-17-2024 Patient encounter procedure Ernesto Feng MA [facility] [place] Comment on above: Population Health Na vigation Outreach ([facility] [place] [facility] Start: 11-08-2023 Telephone encounter Jacquelin beverly MD Work Phone: [facility] [place] Comment on above: Results Start: 11-05-2023 End: 11-05-2023 Patient encounter procedure Jacquelin Spaulding MD Work Phone: [facility] [place] Comment on above: Mild dementia (HCC) (Primary Dx); Vitamin B12 deficiency; Mild dementia without behavioral disturbance, psychotic disturbance, mood disturbance, or anxiety, unspecified dementia type (HCC) Start: 10-25-2023 [facility] Start: 10-25-2023 Patient encounter procedure Ernesto Feng MA [facility] Comment on above: Population Health Na vigation Outreach ([facility]OST[facility] workbench - AWV, Care gaps, HCC gap closure - [place] [facility]) Start: 05-26-2023 Telephone encounter Jacquelin beverly MD Work Phone: [facility] Comment on above: medication issue Start: 05-22-2023 End: 05-22-2023 Emergency department patient visit [facility] Work Phone: Start: 12-31-2022 Refill Jacquelin marshall MD Work Phone: [address] [place] [address] Comment on above: Refill Request Start: 10-06-2022 End: 10-06-2022 Patient encounter procedure Jacquelin Spaulding MD Work Phone: [facility] Comment on above: Mild dementia (HCC) (Primary Dx); Pulmonary emphysema, unspecified emphysema type (HCC); Vitamin B12 deficiency; Sleeping difficulties; Excessive drinking alcohol; Mild dementia, unspecified dementia type, unspecified whether behavioral, psychotic, or mood disturbance or anxiety (HCC) Start: 06-30-2022 Telephone encounter Catherine Crow MD Work Phone: [facility] Comment on above: Patient Request Start: 06-10-2022 End: 06-10-2022 Patient encounter procedure Marion Blair APRN.EMBALMER APPRENTICE Work Phone: [facility] Comment on above: Contact dermatitis, unspecified contact dermatitis type, unspecified trigger (Primary Dx); Mild dementia; Mild Alzheimer's dementia, unspecified timing of dementia onset, unspecified whether behavioral, psychotic, or mood disturbance or anxiety (HCC) Start: 04-23-2022 End: 04-23-2022 Patient encounter procedure Marion Blair APRN.EMBALMER APPRENTICE Work Phone: [facility] Comment on above: COVID-19 (Primary Dx ) Start: 04-22-2022 End: 04-22-2022 Patient encounter procedure Waqas King SHAILA Work Phone: [facility] Comment on above: URI, acute (Primary Dx) Start: 04-21-2022 End: 04-21-2022 Patient encounter procedure Vikas Everett MD Work Phone: [facility] [place] Comment on above: Rash (Primary Dx); Acute cough Start: 04-10-2022 End: 04-10-2022 ambulatory Catherine Crow MD Work Phone: [facility] Comment on above: 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, psychotic disturbance, mood disturbance, or anxiety (HCC) (Primary Dx) Start: 04-10-2022 End: 04-10-2022 Telemedicine consultation with patient Catherine Crow MD Work Phone: [facility] Start: 04-09-2022 End: 04-10-2022 ambulatory CATHERINE CROW Facility:[facility] Start: 04-07-2022 Telephone encounter Catherine Crow MD Work Phone: [facility] Comment on above: Results Start: 03-20-2022 End: 03-21-2022 ambulatory CATHERINE CROW Facility:[facility] Start: 03-20-2022 End: 03-20-2022 ambulatory CATHERINE CROW Facility:[facility] Start: 03-20-2022 End: 03-20-2022 Patient encounter procedure Catherine Crow MD Work Phone: [facility] Comment on above: Mild dementia (HCC) (Primary Dx); Memory deficit; Vitamin D deficiency; Mild late onset Alzheimer's dementia, unspecified whether behavioral, psychotic, or mood disturbance or anxiety (HCC) Start: 02-27-2022 End: 02-27-2022 Patient encounter procedure Jacquelin Spaulding MD Work Phone: [facility] [place] Comment on above: Memory deficit (Prim blanca Dx); Varicose veins of both lower extremities, unspecified whether complicated Procedures Date Procedure Procedure Detail Performing Clinician Start: 01-08-2025 X-ray of chest, PA and lateral views Dr. Jacquelin Spaulding MD Work Phone: Start: 01-08-[address] Jacquelin Spaulding MD Work Phone: Start: 01-07-[address] Jacquelin hines MD Work Phone: Start: 11-09-2024 [employer] COVID-19 VACCINE AGE 12+ YR (COMIRNATY) Jacquelin Spaulding MD Work Phone: Start: 10-05-2024 Radiologic exam esophagus single contrast study Jacquelin Spaulding MD Work Phone: Start: 05-08-2024 [employer] COVID-19 VACCINE AGE 12+ YR (COMIRNATY) Jacquelin Spaulding MD Work Phone: Start: 05-22-2023 Plain chest X-ray Start: 05-22-2023 CT cervical spine without contrast Start: 05-22-2023 CT of head without contrast Start: 05-22-2023 SARS-CoV-2 & FLU Antigen (Rapid) Plan of Treatment Date Care Activity Detail Author Start: 09-09-2031 Urine microalbumin profile [facility] Start: 08-16-2027 [facility] Start: 11-04-2026 Diabetes Screening [facility] Start: 03-20-2025 DIABETES SCREEN DIABETES SCREEN [facility] Start: 03-20-2025 Diabetes Screening [facility] Start: 02-12-2025 End: 02-12-2025 Patient encounter procedure 02/12/2025 2:40 PM EDT Office Visit Family [facility] [address] [place] [address] Jacquelin Spaulding MD [address] [place] [address] 6 month follow up [facility] Comment on above: 6 month follow up Start: 01-08-2025 Hospital admission, emergency, from emergency room, medical nature [facility] Start: 01-08-2025 Bacteria identified in Sputum by Culture [facility] Start: 01-08-2025 Legionella pneumophi la Ag [Presence] in Urine [facility] Start: 01-08-2025 Streptococcus pneumo niae antigen assay [facility] Start: 01-08-2025 Admission procedure [facility] Start: 01-08-2025 Verification routine [facility] Start: 01-08-2025 End: 01-08-2025 [facility] Start: 01-08-2025 Bacteria identified in Blood by Culture Blood Culture [facility] Start: 01-07-2025 Hospital admission, emergency, from emergency room, medical nature [facility] Start: 01-07-2025 Patient discharge [facility] Start: 11-09-2024 End: 11-09-2024 Patient encounter procedure 11/09/2024 1:20 PM EDT Office Visit [facility] [address] [place] [address] Jacquelin Spaulding MD [address] [place] [address] 6 mo f/u [facility] Comment on above: 6 mo f/u Start: 11-05-2024 Covid-19 Vaccine ( season) Covid-19 Vaccine () [facility] Start: 10-05-2024 End: 10-05-2024 Patient encounter procedure 10/05/2024 9:00 AM EDT Appointment Radiology [address] [place] [address] XR [facility] Comment on above: XR ESOPHAGRAM Start: 08-24-2024 End: 08-24-2024 Patient encounter procedure 08/24/2024 8:00 AM EST [facility] [address] [facility] [place], [place] [id number] Bilateral leg edema [R60.0] [facility] Comment on above: Bilateral leg edema [R60.0] Start: 08-21-2024 End: 08-21-2024 Patient encounter procedure 08/21/2024 1:40 PM EST Office Visit [facility] [place] [address] [facility] [place] [id number] Jacquelin Spaulding MD [address] [place] [address] 1 month follow up gagging, edema Family [facility] Comment on above: 1 month follow up ga gging, edema Start: 08-14-2024 End: 11-13-2024 Comprehensive metabolic 2000 panel - Serum or Plasma COMPREHENSIVE METABOLIC PANEL Lab Routine Bilateral leg edema Expected: 08/14/2024 (Approximate), Expires: 11/13/2024 [facility] Work Phone: Comment on above: Expected: 08/14/2024 (Approximate), Expires: 11/13/2024 Start: 08-14-2024 End: 08-14-2024 Patient encounter procedure 08/14/2024 8:30 AM EST Appointment Radiology [address] [place] [address] Esophageal dysphagia [R13.19] Radiology Comment on above: Esophageal dysphagia [R13.19] Start: 08-04-2024 End: 08-04-2024 Patient encounter procedure 08/04/2024 12:30 PM EST Office Visit [facility] [address] [place], [place] [id number] Bilateral leg edema [R60.0] [facility] Comment on above: Bilateral leg edema [R60.0] Start: 07-14-2024 End: 07-14-2024 Patient encounter procedure 07/14/2024 1:20 PM EST Office Visit Family Shaquille [facility] [address] [place], [place] [id number] Jacquelin Spaulding MD [address] [place], [place] [id number] Choking issues to get Swallow Evaluation. See TE 07/10/24. Family [facility] Comment on above: Choking issues to ge t Swallow Evaluation. See TE 07/10/24. Start: 06-28-2024 Advance Directive Discussion Advance Directive Discussion [facility] Start: 05-08-2024 End: 05-08-2024 Patient encounter procedure 05/08/2024 1:40 PM EST Office Visit [facility] [place] [address] [facility], [place] [id number] Jacquelin Spaulding MD [address] [facility] [address] 6 month follow up memory, B12 [facility] Comment on above: 6 month follow up me montemayor, Mary Start: 02-27-2024 Influenza vaccination Influenza Vacc ine (#1) [facility] Start: 02-03-2024 End: 02-03-2024 Patient encounter procedure 02/03/2024 10:00 AM EDT Office Visit [facility] Shaquille Ritter [address] [facility] [place] [address] Jacquelin Spaulding MD [address] [facility], [place] [phone] Patient was seen in the Emergency Department (ED) [facility] Shaqu[facility] R[facility] Comment on above: Patient was seen in the Emergency Department (ED) Start: 09-01-2023 Covid-19 Vaccine () Covid-19 Vaccine () [facility] Start: 06-28-2023 Advance Directive Discussion Advance Directive Discussion [facility] Start: 02-26-2023 Covid-19 Vaccine ( season) Covid-19 Vaccine () [facility] Start: 02-26-2023 Influenza vaccination [facility] Start: 10-06-2022 End: 12-06-2022 VITAMIN B1 (THIAMINE), WHOLE BLOOD [facility] Work Phone: Comment on above: Expected: 10/06/2022 , Expires: 12/06/2022 Start: 06-28-2022 ADVANCE DIRECTIVE DISCUSSION ADVANCE DIRECTIVE DISCUSSION [facility] Start: 06-28-2022 DEPRESSION ASSESSMENT DEPRESSION ASS ESSMENT [facility] Start: 04-23-2022 COVID-19 VACCINE (4 - Booster for Moderna series) COVID-19 VACCINE (4 - Booster for Moderna series) [facility] Start: 04-21-2022 End: 06-21-2022 VARICELLA ZOSTER PCR [facility] Work Phone: Comment on above: Expected: 04/21/2022 , Expires: 06/21/2022 Start: 02-26-2022 Influenza vaccination INFLUENZA (#1) [facility] Start: 02-16-2022 COVID-19 VACCINE (4 - Booster for Moderna series) COVID-19 VACCINE (4 - Booster for Moderna series) [facility] Start: 01-03-2022 DIABETES SCREEN DIABETES SCREEN [facility] Start: 06-28-2021 ADVANCE DIRECTIVE DISCUSSION ADVANCE DIRECTIVE DISCUSSION [facility] Start: 06-28-2021 DEPRESSION ASSESSMENT DEPRESSION ASS ESSMENT [facility] Start: 2014 RSV Vaccine (1 - 1-d ose 75+ series) RSV Vaccine (1 - 1-dose 75+ series) [facility] Start: 1999 RSV Vaccine (1 - 1-d ose 60+ series) RSV Vaccine (1 - 1-dose 60+ series) [facility] Start: 1989 SHINGRIX VACCINE (1 of 2) SHINGRIX VACCINE (1 of 2) [facility] Start: 1957 SPIROMETRY SPIROMETRY [facility] Influenza virus A an d B RNA and SARS-CoV-2 (COVID-19) N gene panel - Respiratory specimen by LITTLE with probe detection COVID WITH FLUA+B, ROUTINE Microbiology Routine URI, acute Ordered: 04/22/2022 [facility] Work Phone: Comment on above: Ordered: 04/22/2022 Magnesium measurement [facility] Patient Education Caring for Severiano eone Who Has COVID-19 [facility] Work Phone: Patient referral [facility] Work Phone: End: 07-14-2025 US.doppler Extremity arteries - bilateral for physiologic artery study PVR ANK PRESS [facility] Vascular Lab Routine Bilateral leg edema 1 Occurrences starting 07/14/2024 until 07/14/2025 [facility] Comment on above: 1 Occurrences starti ng 07/14/2024 until 07/14/2025 End: 08-13-2025 XR Esophagus Views W contrast PO XR ESOPHAGRAM Radiology Routine Esophageal dysphagia 1 Occurrences starting 07/14/2024 until 08/13/2025 [facility] Comment on above: 1 Occurrences starti ng 07/14/2024 until 08/13/2025 [facility] Immunizations Immunization Date Immunization Notes Care Provider Erica rose 11-09-2024 COVID-19 vaccine, ag e 12+ yr (PFIZER-BIONTECH COMIRNATY) Jacquelin Spaulding MD Work Phone: [facility] 05-08-2024 COVID-19 vaccine, ag e 12+ yr (PFIZER-BIONTECH COMIRNATY) Jacquelin Spaulding MD Work Phone: [facility] 05-08-2024 influenza, high dose seasonal, preservative-free Jacquelin Spaulding MD Work Phone: [facility] 07-06-2023 influenza (HD-IIV4) vaccine, age 65+ yr, high dose, quadrivalent, PF (FLUZONE HIGH-DOSE) Ernesto Feng MA [facility] 07-06-2023 influenza virus vacc ine, unspecified formulation Ernesto Feng MA [facility] 05-03-2023 COVID-19 vaccine, ag e 12+ yr, season (MODERNA) Ernesto Feng MA [facility] 09-08-2021 tetanus toxoid, redu arelis diphtheria toxoid, and acellular pertussis vaccine, adsorbed Jacquelin Spaulding MD Work Phone: [facility] 09-18-2020 Covid (Moderna) [facility] 08-21-2020 Covid (Moderna) [facility] 04-19-2020 influenza (aIIV4) vaccine, age 65+ yr, quadrivalent, PF (FLUAD QUAD) Ernesto Feng [facility] 04-19-2020 influenza, high dose seasonal, preservative-free Jacquelin Spaulding MD Work Phone: [facility] 04-19-2020 pneumococcal conjuga te vaccine, 13 valent Jacquelin Spaulding MD Work Phone: [facility] 04-19-2020 influenza virus vacc ine, unspecified formulation Jacquelin Spaulding MD Work Phone: [facility] 2019 pneumococcal polysaccharide vaccine, 23 valent Jacquelin Spaulding MD Work Phone: [facility] Work Phone: 05-18-2018 pneumococcal conjuga te vaccine, 13 valent Jacquelin Spaulding MD Work Phone: [facility] 04-11-2016 influenza, seasonal, injectable, preservative free Jacquelin Spaulding MD Work Phone: [facility] Payers Date Payer Category Payer Self-pay [id number] 2018 Medicare (Managed Care) [id number]. [id number] 2018 Unknown [id number] 2018 Unknown [id number] Medicare [place] [employer] MEDICARE [id number] Medicare MEDICARE PART A B [id number] Unknown [id number] Unknown [id number] Social History Date Type Detail Facility Start: 02-27-2022 End: 01-08-2025 Tobacco smoking status NHIS Ex-smoker [facility] History of tobacco use Current smoker [facility] History of tobacco use Cigarette Smoker [facility] Start: 02-27-2022 End: 04-15-2023 Cigarettes smoked current (pack per day) - Reported 0.8 [facility] Work Phone: Start: 02-27-2022 Tobacco use and exposure Former smokeless tobacco user [facility] History of tobacco use Snuff User [facility] Start: 02-27-2022 Alcohol intake Current non-dr mice raiser of alcohol (finding) [facility] Start: 02-27-2022 Tobacco Comment quit 30 years ago [facility] Start: 1940 Sex Assigned At Not on file [facility] Start: 02-17-2022 End: 04-21-2022 Exposure to SARS-CoV-2 (event) Not sure [facility] Start: 03-20-2022 End: 11-09-2024 Alcohol intake Current drinker of alcohol (finding) [facility] Start: 03-30-2022 End: 04-09-2022 Exposure to SARS-CoV-2 (event) Unable to assess [facility] Start: 04-13-2022 End: 04-23-2022 Exposure to SARS-CoV-2 (event) Yes [facility] Start: 05-22-2023 Tobacco smoking stat us WAIS Unknown if ever smoked [facility] Start: 10-10-2017 Cigarettes [facility] Start: 1940 Sex Assigned At Male [facility] Start: 04-15-2023 End: 05-08-2024 Tobacco use panel [facility] Work Phone: Adult Depression Screening Assessment 0 [facility] Work Phone: Start: 05-08-2024 Tobacco use and exposure Smokeless tobacco non-user [facility] How often to you hav e a drink containing alcohol? 4 or more times a week [facility] How many standard drinks containing alcohol do you have on a typical day? 5 or 6 [facility] How often do you hav e 6 or more drinks on 1 occasion? Daily or almost daily [facility] Medical Equipment Procedure Code Equipment Code Equipment Origin al Text Equipment Identifier Dates MESH,PERFIX FLAT PRESHAPED FDA Start: 03-24-2018 MESH,PERFIX FLAT PRESHAPED FDA Start: 03-24-2018 MESH,PERFIX FLAT PRESHAPED FDA Start: 03-24-2018 MESH,PERFIX FLAT PRESHAPED FDA Start: 03-24-2018 Mental Status Date Assessment Result Facility 01-07-2025 Cognitive function Voice/Name [facility] Work Phone: 01-07-2025 Cognitive function Level Of Cons ciousness Awake;Alert;Appropriate;Follow s Commands [facility] Work Phone: 05-22-2023 Cognitive function Level Of Cons ciousness Awake;Alert;Appropriate;Follow s Commands [facility] Work Phone: Clinical Notes 2019 to 01-08-2025 Note Date & Type Note Facility 01-08-2025 Radiology Diagnostic study note [facility] Imaging Services [address] [place], [place] [id number] Chest PA and Lateral MR#: [id number] Acct: [id number] Name: MELVIN RIDDLE Rep #: [id number] : 1940 M 84 From: Darryl Braxton DO PCP: Dr. Jacquelin Spaulding MD Status: RE G ER Study:Chest PA and Lateral Date of Exam: 01/08/25 Exam# [id number] Ordering Dr: Clark Sosa DO PROCEDURE: CHEST PA AND LATERAL 01/08/2025 REASON FOR EXAM: COUGH TECHNIQUE: CHEST PA AND LATERAL COMPARISON: Chest x-ray studies available dated 01/28/2024 and 05/22/2023 FINDINGS: Hardware: None Heart: Heart size is upper limits of normal. Mediastinum: Mediastinal silhouette is slightly prominent. Pulmonary vasculature is prominent centrally. Trachea is midline. Arteriosclerotic vascular disease of the aorta is noted. Lungs: Subtle prominent interstitial markings are noted in both breasts. Right costophrenic angle sharp appears small left pleural effusion is seen. Adjacent compressive atelectasis of the lung bases isnoted. Bones: Diffuse osteopenia of the bony thorax is seen. Mild degenerative changesof the thoracic spine are noted. Soft tissues appear unremarkable. RAD/Chest PA and Lateral IMPRESSION: Chest x-ray findings demonstrate mild pulmonary edema which may be related to CHF or fluid overload. The prominent interstitial markings in the lungs most likely represent pulmonaryedema and/or pneumonic infiltrates. Small left pleural effusion with adjacent compressive atelectasis of the lung base. Diffuse osteopenia of the bony thorax with mild degenerative changes of the thoracic spine. Reading Location: [facility] CC: Dr. Clark Sosa DO; Dr. Jacquelin Spaulding MD ~ [employer] Supervisor: Signed [facility] 01-07-2025 Consult note [facility] 01-07-2025 Discharge summary [facility] 01-07-2025 Evaluation note Diagnosis Onset Date Resolution Esophageal obstruction due to food impaction acute January 07, 2025 8:56pm [facility] Work Phone: 1(257) 558-227107-13-2025 Consult note [facility] Medical Records Department [address] [address] Anesthesia Postop Eval I 01/07/252235 MR#: [id number] Acct: [id number] Name: MELVIN RIDDLE Rep #:[id number] : 1940 84 From: Poncho Munson MD PCP: Dr. Jacquelin Spaulding MD Status: G [facility] Y Race: C Location: [place] [address] Anesthesia: Postop Eval I Current Vital Signs Temperature: 97.6 F Pulse Rate: 100 Blood Pressure: 145/77 Respiratory Rate: 16 Pulse Ox: 94 Oxygen Delivery Method: Nasal Cannula Oxygen Flow Rate (L/min): 2 Assessment Airway patent: Yes Spontaneous unlabored respirations: Yes Mental status: Awake and Calm nausea: No Vomiting: No Anesthesia Complication: No Fluid Hydration Crystalloid volume administer (ml): 50 Total IV fluid infused: 50 Progress Note Anesthesia document: Postop Eval 1 completed: Yes 01/07/252236 > Date _ Poncho Munson MD Cosigner Signature: Date CC: ~ Signed [facility]07-13-2025 Procedure note [facility] Medical Records Department [address] [address] EGD Report MR#: [id number] Acct: [id number]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 SUPERVISOR DATA PROCESSING: No RADIOLOGY DEPARTMENT: General X-ray: Exam(s) Completed: GI/ Procedure(s): Esophogram with barium contrast PERIPHERAL IV DATA: Not applicable SIGNED BY: RT Lula(Debby) October 05, 2024 9:55 AM documented in this encounterPomerene Hospital04-10-2025 NoteHNO ID: [id number] Author: SRIDHAR, MERYL, RT(R) Service: Radiology Author Type: Technologist Type: [...] PATIENT PRESENTS WITH AN IMPLANTABLE OR ATTACHED SUPERVISOR DATA PROCESSING: No RADIOLOGY DEPARTMENT: General X-ray: Exam(s) Completed: GI/ Procedure(s): Esophogram with barium contrast PERIPHERAL IV DATA: Not applicable SIGNED BY: RT Lula(R) October 05, 2024 9:55 AMRiverview Health [id number] Instructions* Patient Instructions* Flower Narvaez MA - 08/21/2024 2:01 PM EST Follow up in October as scheduled. 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 We did go ahead and send in prescription to [facility] for you. Keep swallow test scheduled in September. documented in this encounterPomerene Hospital02-24-2025 History of Present illness Narrative* Jacquelin Spaulding MD - 08/21/2024 1:40 PM EST Chief Complaint Patient presents with: F/U 1 [...] his left leg. Has been seen by Podiatrywho recommended a circulation test, but this was [...] Left side normal. Daughter has questions about long term care phlebotomist use of Lasix and what are possible issues with fdc useof Lasix if any. Noted darker colored urine, drinking less beer at previous visit. CMP was ordered. Past medical history, appointments, medications, allergies reviewed. Previous Medical History No past medical history on file. Previous Surgical History PAST SURGICAL HISTORY Procedure Laterality Date COLONOSCOPY N/A 02/22/2018 Dr. Kaye, [facility] EGD N/A 02/22/2018 Dr. Kaye at [facility] HERNIA REPAIR HX N/A 02/2018 hernia surgery [...] in no acute distress, well-hydrated, well nourished. andOverweight. Lungs: Lungs clear to auscultation. No wheezing, [...] Past Histories independently gathered by the clinical field support engineer and the remaining scribed note accurately describes [...] PM. Flower Narvaez MA documented in this encounterPomerene Hospital02-24-2025 NoteHNO ID: [id number] Author: JACQUELIN SPAULDING MD Service: ? Author [...] Left side normal. Daughter has questions about fdc use of Lasix and what are possible issues with long term care phlebotomist use of Lasix if any. Noted darker colored urine, drinking less beer at previous visit. CMP was ordered. Past medical history, appointments, medications, allergies reviewed. Previous Medical History No past medical history on file. Previous Surgical History PAST SURGICAL HISTORY Procedure Laterality Date COLONOSCOPY N/A 02/22/2018 Dr. Kaye, [facility] EGD N/A 02/22/2018 Dr. Kaye at [facility] HERNIA REPAIR HX N/A 02/2018 hernia surgery [...] F03.A0 - Stable Fo (more content not included)...[facility]02-19-2025 Telephone encounter Note* Telephone Encounter - Ned Barry - 08/16/2024 2:10 PM EST Patients contact ([place]) called asking if you wanted to postpone Melvin's upcoming appointment on 08/21? He is not having the Vascular test done until 08/24. Please advise, Thank you [facility]02-19-2025 Miscellaneous Notes* Telephone Encounter - Ned Barry - 08/16/2024 2:10 PM EST Patients contact ([place]) called asking if you wanted to postpone Melvin's upcoming appointment on 08/21? He is not having the Vascular test done until 08/24. Please advise, Thank you documented in this encounterPomerene Hospital01-17-2025 History of Present illness Narrative* Jacquelin Spaulding MD - 07/14/2024 1:20 PM EST Chief Complaint Patient presents with: gagging issues: [...] is not getting worse but not getting anybetter. He has no teeth and refuses to wear his dentures. She accomodates his diet, but still triesto add in the harder foods by cutting them into smaller pieces. He's raspy and brings up a lot phlegm but lungs have always been clear when evaluated. Per Daughter, pt has been told he would benefit from a swallow study. He had an episode last year of ending up in ER in [place] due to food stuck in esophagus. Passed spontaneously. No EGD done.. Edema: Bilateral lower legs and feet that has been going on for a long time. Has been seen by hogshead stock clerk who suggested circulation test. Does not improve [...] Laterality Date COLONOSCOPY N/A 02/22/2018 Dr. Kaye, [facility] EGD N/A 02/22/2018 Dr. Kaye at [facility] HERNIA REPAIR HX N/A 02/2018 hernia surgery [...] Past Histories independently gathered by the clinical field support engineer and the remaining scribed note accurately describes [...] PM. Chelo Graham MA documented in this encounterPomerene Hospital01-17-2025 NoteHNO ID: [id number] Author: JACQUELIN SPAULDING MD Service: ? Author [...] year of ending up in ER in [place] due to food stuck in esophagus. Passed spontaneously. No EGD done.. Edema: Bilateral lower legs and feet that has been going on for a long time. Has been seen by hogshead stock clerk who suggested circulation test. Does not improve [...] Laterality Date COLONOSCOPY N/A 02/22/2018 Dr. Kaye, [facility] EGD N/A 02/22/2018 Dr. Kaye at [facility] HERNIA REPAIR HX N/A 02/2018 hernia surgery [...] Past Histories independently gathered by the clinical field support engineer and the remaining scribed note accurately describes my personal service to the patient. Medical Decision Making: Problems: Moderate: New problem with uncertain prognosis Data: Unique test(s) ordered: 3+ Medical Decision Making Level: 4 - Moderate Jacquelin Spaulding MD The documentation for this note was completed by Chelo Graham MA acting as scribe for Jacquelin Spaulding MD. July 14, 2024 1:15 PM. Chelo Graham [facility]01-13-2025 Telephone encounter Note * Telephone Encounter - Adrienne Duvall RN - 07/10/2024 9:38 AM EST Pts daughter calls in and reports Pt [...] Pt sounds raspy and brings up phlegm. [facility]01-13-2025 Miscellaneous Notes* Telephone Encounter - Adrienne Duvall RN - 07/10/2024 9:38 AM EST Pts daughter calls in and reports Pt [...] and brings up phlegm. documented in this encounterPomerene Hospital11-11-2024 History of Present illness Narrative* Jacquelin Spaulding MD - 05/08/2024 1:40 PM EST Images from the original note were not [...] demeanor are fine, doesn't get agitated. Does forgetto tell her at times when he's taking [...] Discussed with pt about Shingles/RSV vaccine checking withinsurance. Medicare Health Risk Assessment General Health Very [...] 83 Resp 18 Ht 161.3 cm (5' 3.5") Wt 76.1 kg (167 lb 12.3 oz) [...] YR, HIGH DOSE, TRIVALENT (FLUZONE HIGH-DOSE) - [employer] COVID-19 VACCINE AGE 12+ YR (COMIRNATY) - Receive in office today Follow up in 6 months. I agree with the Chief Complaint, ROS, and Past Histories independently gathered by the clinical field support engineer and the remaining scribed note accurately describes [...] PM. Flower Narvaez MA documented in this encounterPomerene Hospital11-11-2024 NoteHNO ID: [id number] Author: JACQUELIN SPAULDING MD Service: ? Author [...] Current care team: Patient Care Team: Jacquelin Spaudling MD as PCP - General (Family Medicine) [facility] - Podiatry, unable to [...] 83 Resp 18 Ht 161.3 cm (5' 3.5") Wt 76.1 kg (167 lb 12.3 oz) [...] YR, HIGH DOSE, TRIVALENT (FLUZONE HIGH-DOSE) - [employer] COVID-19 VACCINE AGE 12+ YR (COMIRNATY (more content not included)...[facility]08-08-2024 History of Present illness Narrative* Jacquelin Spaulding MD - 02/03/2024 10:00 AM EDT Chief Complaint Patient presents with: Hospital Follow Up HPI Melvin Riddle is a 83 year old male who presents here today for an ED follow up. Pt was seen at [facility] ED on 01/28/24 due to a fall. [...] pain a 3-4/10 but intermittent. Is still ableto get around and walk the dogs. Has not really taken anything other than Tylenol periodically. Still slightly tender to touch on his left lower back and hip area. Does have skin tear on left upper arm that daughter has been caring for from fall. Has been using Coconut oil, feels the area is healing up nicely. [facility] ED: HPI - Fall History of Present Illness Chief Complaint: Fall HISTORY OF PRESENT ILLNESS: 83-year-old male presents with fall. Patient cannot endorse the symptoms on the fall. He lives withhis daughter. Daughter states she heard him fall walker room he was conscious on his left side. Shethinks he tripped over the threshold to be [...] spine, lumbar, left arm and left hip abnormality,anemia. Per patient's Patient's mental status at baseline. [...] instructions, fall risk precautions and fall prevention homeinstructions. Strict return precautions were discussed The patient [...] secondary to the patient having high probability ofclinically significant/life threatening deterioration in the patient's condition which required my urgent intervention. Impression: 1. Fall 2. Left arm contusion 3. Lower back contusion Past medical history, appointments, medications, allergies reviewed. Previous Medical History No past medical history on file. Previous Surgical History PAST SURGICAL HISTORY 02/22/2018: COLONOSCOPY; N/A Comment: Dr. Kaye, [facility] 02/22/2018: EGD; N/A Comment: Dr. Kaye at [facility] 02/2018: HERNIA REPAIR HX; N/A Comment: hernia [...] BP Cuff Size: Regular Adult) Pulse 76 Resp18 Wt 75.1 kg (165 lb 9.1 oz) [...] 09/09/2031 Pneumococcal Vaccine: 65+ Completed Data reviewed [facility] records scanned into pt's chart. ASSESSMENT/PLAN: 1. [...] Low Jacquelin Spaulding MD documented in this encounterPomerene Hospital08-08-2024 NoteHNO ID: [id number] Author: JACQUELIN SPAULDING MD Service: ? Author Type: Physician Type: Progress Notes Filed: 02/03/2024 10:44 Note Text: Chief Complaint Patient presents with: Hospital Follow Up HPI Melvin Riddle is a 83 year old male who presents here today for an ED follow up. Pt was seen at [facility] ED on 01/28/24 due to a fall. [...] feels the area is healing up nicely. [facility] ED: HPI - Fall History of Present [...] HISTORY 02/22/2018: COLONOSCOPY; N/A Comment: Dr. Kaye, [facility] 02/22/2018: EGD; N/A Comment: Dr. Kaye at [facility] 02/2018: HERNIA REPAIR HX; N/A Commen (more content not included)...[facility]08-05-2024 Note HNO ID: [id number] Author: SP HALEY MA Service: ? Author Type: Overlock Sleeve Setter Type: Progress Notes Filed: 01/31/2024 15:24 Note Text: POPULATION HEALTH NAVIGATION OUTREACH Action/I January 31, 2024 Spoke with pt's daughter, Salina. Pt scheduled for ED follow up appt with PCP on 02/03/24. [facility] Trang Please call daughter Salina to schedule ed f/u appt Patient was seen in the Emergency Department (ED) Location: [place] - Date: 01/28/24 Reason for ED Visit: Fall @ home TCM eligible through 02/11/24 Reason for Outreach Community Monitoring/Network Navigator Pools AND Phone Line: AC Patient Contacted: Spoke to patient/parent/or legal guardian Patient identified by name and : Yes Community Monitoring/Network Navigator Pools AND Phone Line actions taken: Patient scheduled: ER Follow-up 02/03/2024 in [facility] with JACQUELIN SPAULDING - Patient was seen in the Emergency Department (ED), Location: [place] - Date: 01/28/24 , Reason for ED Visit: Fall @ home, TCM eligible through 02/11/24 05/08/2024 in [facility] with JACQUELIN SPAULDING - 6 month follow up memory, B12, 2023 AWV due. Please address due care gaps and HCC gap closure Navigation Signature: Sp Haley MA January 31, 2024 2:46 [facility]08-05-2024 History of Present illness Narrative* Sp Haley MA - 01/31/2024 2:46 PM EDT POPULATION HEALTH NAVIGATION OUTREACH Action/FYI January 31, [...] Community Monitoring/Network Navigator Pools & Phone Line: AC Patient Contacted: Spoke to patient/parent/or legal guardian Patient identified by name and : Yes Community Monitoring/Network Navigator Pools & Phone Line actions taken: Patient scheduled: ER Follow-up 02/03/2024 in [facility] with JACQUELIN SPAULDING - Patient was seen in the Emergency Department (ED), Location: [place] - Date: 01/28/24 , Reason for ED Visit: Fall @ home, TCM eligible through 02/11/24 05/08/2024 in [facility] with JACQUELIN SPAULDING - 6 month follow up memory, B12, 2023 AWV due. Please address due care gaps and HCC gap closure Navigation Signature: Sp Haley MA January 31, 2024 2:46 PM * Rasta Antonio RN - 01/31/2024 2:11 PM EDT ED Follow-Up Note PSS Per review of ED Utilization at request of Payer Melvin Riddle lawrence 38 needs to have an appointment scheduled with @PCP@ for follow up of Emergency Department Utilization. Please schedule an appointment with PCP for review of these conditions as well as any other open care gaps. Please call julius Downing to schedule ed f/u appt Provider Action [...] seen in the Emergency Department (ED) Location: [place] Date: 01/28/24 Reason for ED Visit: Fall [...] provided with appropriate counseling: Yes Based on jeep driver, the following disposition is advised: No symptoms or symptoms present, not severe. Routed to: Navigation Team: PCP visit within 7 days YULISA Education Provided this Outreach: Alessandra Antonio RN January 31, 2024 2:30 PM documented in this encounterPomerene Hospital08-05-2024 NoteHNO ID: [id number] Author: RASTA ANTONIO RN Service: ? Author [...] seen in the Emergency Department (ED) Location: [place] Date: 01/28/24 Reason for ED Visit: Fall [...] provided with appropriate counseling: Yes Based on jeep driver, the following disposition is advised: No symptoms or symptoms present, not severe. Routed to: Navigation Team: PCP visit within 7 days YULISA Education Provided this Outreach: No Rasta Antonio RN January 31, 2024 2:30 [facility]08-05-2024 NotePatient Outreach ([facility]) VENKAETSHMELVIN Manzano ([id number]) 1940 M Date Time Provider Department 01/31/24 [...] any other open care gaps. Please call julius Downing to schedule ed f/u appt Provider Action [...] seen in the Emergency Department (ED) Location: [place] Date: 01/28/24 Reason for ED Visit: Fall [...] provided with appropriate counseling: Yes Based on jeep driver, the following disposition is advised: No symptoms [...] seen in the Emergency Department (ED) Location: [place] - Date: 01/28/24 Reason for ED Visit: Fall @ home TCM eligible through 02/11/24 Reason for Outreach Community Monitoring/Network Navigator Pools AND Phone Line: ACM Patient Contacted: Spoke to patient/parent/or legal guardian Patient identified by name and : Yes Community Monitoring/Network Navigator Pools AND Phone Line actions taken: Patient scheduled: ER Follow-up 02/03/2024 in [facility] with AJCQUELIN SPAULDING - Patient was seen in the Emergency Department (ED), Location: [place] - Date: 01/28/24 , Reason for ED Visit: Fall @ home, TCM eligible through 02/11/24 05/08/2024 in [facility] with JACQUELIN SPAULDING - 6 month follow [...] B12 deficiency [E53.8] 10/06/2022 Encounter Status:Closed by TERASP on 01/31/24[facility] 01-28-2024 NoteHNO ID: [id number] Author: GABRIELLE MONTEZ APRN.CNP Service: ? Author [...] CT head Have referred [facility] History of Present illness Narrative* Gabrielle Montez APRN.CNP - 01/28/2024 10:04 AM EDT 83 year old female presents for fall and injuries. Occurred over night. Family at bedside and endorses that she found him on floor in bathroom. He did have a few beers yesterday evening. Unsure of exact mechanism of fall. Given age, and alcohol ingestion patient warrants a CT head Have referred to ED No charge documented in this encounterPomerene Hospital07-26-2024 Telephone encounter Note * Telephone Encounter - Pedro Munoz APRN.CNP - 01/21/2024 2:11 PM EDT The following approved medication requests have been [...] valid prescription at the pharmacy Pedro Munoz APRN.CNP [facility]07-26-[facility]24 Miscellaneous Notes* Telephone Encounter - Pedro uMnoz APRN.CNP - 01/21/2024 2:11 PM EDT The following approved medication requests have been [...] valid prescription at the pharmacy Pedro Munoz APRN.CNP * Telephone Encounter - Génesis Cabezas LPN - 01/21/2024 1:59 PM EDT Prescription Refill Information The patient has been [...] 21, 2024 2:00 PM documented in this encounterPomerene Hospital07-26-2024 Telephone encounter Note * Telephone Encounter - Génesis Cabezas LPN - 01/21/2024 1:59 PM EDT Prescription Refill Information The patient has been [...] Cabezas LPN January 21, 2024 2:00 PM [facility]07-22-2024 NoteHNO ID: [id number] Author: ERNESTO FENG MA Service: ? Author Type: Overlock Sleeve Setter Type: Progress Notes Filed: 01/17/2024 12:16 Note Text: POPULATION HEALTH NAVIGATION OUTREACH Action/FYI Patient is on [facility] CURRENT [facility]OST[facility] Workbench list for below and needs appointment to address: Spirometry Shingrix Vaccine(1 of 2) RSV Vaccine(1 - 1-dose 60+ series) Advance Directive Discussion Covid-19 Vaccine( season) No results found for: "HBA1C" Patient due for: Medicare Annual Wellness Visit Advance Directives Attempted to reach patient, voicemail not set up yet, unable to leave message. Sent Intentio message. No HCC Unable to convert upcoming OV to AWV due to provider scheduled conflict. Updated upcoming OV notes Please address due care gaps and HCC gap closure Reason for Outreach Care Gap/HCC or Scheduling Wellness Visits Care Gaps due: Medicare Annual Wellness Visit Advance Directives Patient Contacted: Unable or unnecessary to reach patient: Unable to leave message Across The Universe message sent Updated appointment notes Navigation Signature: Ernesto Feng MA January 17, 2024 8:29 [facility]07-22-2024 History of Present illness Narrative* Ernesto Feng MA - 01/17/2024 8:28 AM EDT POPULATION HEALTH NAVIGATION OUTREACH Action/FYI Patient is on [facility] CURRENT [employer]OSTER Workbench list for below and needs appointment to address: Spirometry Shingrix Vaccine(1 of 2) RSV Vaccine(1 - 1-dose 60+ series) Advance Directive Discussion Covid-19 Vaccine( season) No results found for: "HBA1C" Patient due for: Medicare Annual Wellness Visit Advance Directives Attempted to reach patient, voicemail not set up yet, unable to leave message. Sent Intentio message. No HCC Unable to convert upcoming [...] 17, 2024 8:29 AM documented in this encounterPomerene Hospital07-22-2024 NotePatient Outreach (NETNAV) MELVIN RIDDLE ([id number]) 1940 M Date Time Provider Department 01/17/24 ERNESTO FENG NETNAV During your visit today, we recorded the following information about you: Ernesto Feng MA 01/17/2024 12:16 PM Signed POPULATION HEALTH NAVIGATION OUTREACH Action/FYI Patient is on [facility] for below and needs appointment to address: Spirometry Shingrix Vaccine(1 of 2) RSV Vaccine(1 - 1-dose 60+ series) Advance Directive Discussion Covid-19 Vaccine( season) No results found for: "HBA1C" Patient due for: Medicare Annual Wellness Visit Advance Directives Attempted to reach patient, voicemail not set up yet, unable to leave message. Sent Hands-On Mobilehart message. No HCC Unable to convert upcoming [...] Population Health Navigation Outreach [[id number]] Cmt: Gerardo Soto - [place] PCSA Prescriptions as of 01/17/2024 - cyanocobalamin [...] 10/06/2022 Encounter Status:Closed by ERNESTO FENG on 01/17/24[facility]05-14-2024 Telephone encounter Note* Telephone Encounter - Flower Narvaez MA - 11/09/2023 8:22 AM EDT Call to pt's daughter, Salina. Notified her of results below from Provider, verbalized understanding. Flower Narvaez MA [facility]05-14-2024 Miscellaneous Notes* Telephone Encounter - Flower Narvaez MA - 11/09/2023 8:22 AM EDT Call to pt's daughter, Salina. Notified her of results below from Provider, verbalized understanding. Flower Narvaez MA * Telephone Encounter - Jacquelin Spaulding MD - 11/08/2023 7:09 PM EDT Please notify patient's daughter that his labs all look fine. Jacquelin Spaulding MD documented in this encounterPomerene Hospital05-13-2024 Telephone encounter Note * Telephone Encounter - Jacquelin Spaulding MD - 11/08/2023 7:09 PM EDT Please notify patient's daughter that his labs all look fine. Jacquelin Spaulding MD [facility]05-10-2024 History of Present illness Narrative* Jacquelin Spaulding MD - 11/05/2023 4:20 PM EDT Chief Complaint Patient presents with: 6 Month [...] reminds him to put soap on the washcloth and that the shampoo goes on his head and not his body. Daughter doesn't feel like his memoryis any worse than 6 months ago. Still takes the dogs out for walks but he only goes about 30 min to1 hour. One of the dogs he takes [...] Laterality Date COLONOSCOPY N/A 02/22/2018 Dr. Kaye, [facility] EGD N/A 02/22/2018 Dr. Kaye at [facility] HERNIA REPAIR HX N/A 02/2018 hernia surgery [...] Past Histories independently gathered by the clinical field support engineer and the remaining scribed note accurately describes [...] PM. Chelo Graham MA documented in this encounterPomerene Hospital04-29-2024 History of Present illness Narrative* Ernesto Feng MA - 10/25/2023 7:35 AM EDT POPULATION HEALTH NAVIGATION OUTREACH Action/FYI Patient is on [facility] CURRENT [facility]OST[facility] Workbench list for below and needs appointment to address: Spirometry Shingrix Vaccine(1 of 2) RSV Vaccine(1 - 1-dose 60+ series) Advance Directive Discussion Covid-19 Vaccine(2022- season) No results found for: "HBA1C" Patient due for: Medicare Annual Wellness Visit Advance Directives Attempted to reach patient, voicemail not set up yet, unable to leave message. Sent Intentio message. Reason for Outreach Care Gap/HCC or Scheduling Wellness Visits Care Gaps due: Medicare Annual Wellness Visit Advance Directives Patient Contacted: Unable or unnecessary to reach patient: Unable to leave message MyChart message sent HCC related Navigation Signature: Ernesto Feng MA October 25, 2023 7:35 AM documented in this encounterPomerene Hospital11-30-2023 Miscellaneous Notes* Telephone Encounter - Jailene Wheeler LPN - 05/27/2023 8:51 AM EST Phoned daughter Salina and went over notes from Dr senior commissions analyst, Salina said she found the medication and did give his dose was only few hours late, he will be taking his last dose today. Daughter said father likes to hide things and had stashed the medication in the first aid kit. * Telephone Encounter - Jordy Ugalde DO - 05/26/2023 8:39 PM EST Noted, no need to restart medication since end of day 5 after diagnosis Jordy Ugalde DO * Telephone Encounter - Terri Alfaro LPN - 05/26/2023 9:33 AM EST Daughter called to let you know pt was to [facility] ER on Wednesday05-22-23 and dx with COVID. Pt was given the medication Paxlovid. Pt took 3 days and now family can not find the last 2 days. Pt has dementia. Daughter asking what they need to do if anything. Please advise daughter. PCP/team unavailable.Routing message to senior commissions analyst. Terri Alfaro LPN documented in this encounterPomerene Hospital11-25-2023 Discharge summary Author Jonathan Bedoya [facility] May 22, 2023 7:59pm Note Date/Time May 22, 2023 5:50pm [facility] Medical Records Department [address] [place] [address] Emergency Department Summary 05/22/23 MR#: [id number] Acct: [id number] Name: MELVIN RIDDLE #:[id number] : 1940 82 From: Jonathan Bedoya DO [...] status change and a concern he has "a bug". [facility] Medical History Abdominal pain COPD (chronic obstructive [...] 76.6 H Lymph % (Auto) 12.2 L Appling % (Auto) 10.4 H Eos % (Auto) [...] Clarity Clear Urine pH 6.0 Ur Specific [place] 1.020 Urine Protein Negative Urine Glucose (UA) [...] your Primary Care Provider. Call [facility] ([phone]) or report to the closest Emergency Room. Call 911 if necessary. 05/22/231958 <Electronically signed by Jonathan Bedoya DO> Cosigner Signature (if applicable): CC: Dr. Jacquelin Spaulding MD ~ Signed [facility] Work Phone: [phone]) 469-589307-06-2023 Miscellaneous Notes* Telephone Encounter - Jacquelin Spaulding [...] short term to local pharmacy and then fdc to home delivery pharmacy please. Also requesting a 90 day supply to home delivery pharmacy. Requested Prescriptions Pending Prescriptions Disp Refills memantine (NAMENDA) 5 mg tablet 180 tablet 3 Sig: Take 1 tablet by mouth twice daily. Please review and advise. Dione Pedro documented in this encounterPomerene Hospital04-11-2023 History of Present illness Narrative* Jacquelin [...] he feels. Stopped having his donut at [facility], now has some cookies he eats after [...] to spring fever, no longer working at [employer], so is always trying to fine things to keep him occupied. His routine has changed. Memory: Follows with Geriatrics, Catherinesusan Crow, last OV Mar 2022. Was advised [...] Laterality Date COLONOSCOPY N/A 02/22/2018 Dr. Kaye, [facility] EGD N/A 02/22/2018 Dr. Kaye at [facility] HERNIA REPAIR HX N/A 02/2018 hernia surgery [...] Past Histories independently gathered by the clinical field support engineer and the remaining scribed note accurately describes [...] PM. Chelo Graham Ma documented in this encounterPomerene Hospital01-03-2023 Miscellaneous Notes* Telephone Encounter - Catherine Crow MD - 06/30/2022 4:00 PM EST Unfortunately [employer] has been giving us issues about this code, when it is usually covered. I can change the code and resubmit. Thanks Catherine Crow MD * Telephone Encounter - Cristina Gonzalezffman - 06/30/2022 2:59 PM EST Patient's daughter, Salina Ames, states that patient received a denial of coverage from [employer] for 'neuropsychological testing for 1.5 hours' that occurred on 2021. Patient had an appointment with Dr. Crow on that date for cognitive testing, and Salina is wondering if perhaps the testing was coded incorrectly. Salina states they have already paid the bill for the [facility] service on 03/20/22. I gave Salina our Billing Department phone number and am asking Dr. Crow to check the coding for that day's service. Salina's phone number is [phone]. She is asking if Dr. Crow re-submits the bill and how we proceed from here to fix this problem. Cristina Dominguez June 30, 2022 3:04 PM documented in this encounterPomerene Hospital12-14-2022 Instructions* Patient Instructions* Marion Blair APRN.CNP - 06/10/2022 8:52 AM EST Use steroid ointment to rash Recommend wearing undergarments/comfy pants May follow up with dermatology: [facility] in [place] if rash is not improving. Follow up as needed. documented in this encounterPomerene Hospital12-14-2022 History of Present illness Narrative* Marion Blair APRN.CNP - 06/10/2022 8:40 AM EST This is [...] Laterality Date COLONOSCOPY N/A 02/22/2018 Dr. Kaye, [facility] EGD N/A 02/22/2018 Dr. Kaye at [facility] HERNIA REPAIR HX N/A 02/2018 hernia surgery [...] discussed and patient voices understanding. Marion Blair APRN.EMBALMER APPRENTICE This note was partially generated using EdSurge recognition system. Note was reviewed for accuracy. There may be minor misspellings or grammar miscues with Veracyte voice recognition. documented in this encounterPomerene Hospital10-27-2022 Instructions* Patient Instructions* Marion Blair APRN.CNP [...] you with PAXLOVID for the treatment of mtfl-gk-mttqmvwp coronavirus disease (COVID-19) caused by the SARS-CoV-2 [...] for information about PAXLOVID. Talk to your healthcare provider about your options or if you have any questions. It is your choice to take PAXLOVID. What is COVID-19? COVID-19 is caused by a virus called a coronavirus. You can get COVID-19 through close contact withanother person who has the virus. COVID-19 illnesses have ranged from very plnb-oq-wdjhth, including illness resulting in . While information [...] is an investigational medicine used to treat qabm-rc-jtkpqkbg COVID-19 in adults and children [12 years [...] of using PAXLOVID to treat people with iizk-jj-ianflgia COVID-19. The FDA has authorized the emergency use of PAXLOVID for the treatment of lozg-lp-qbubnjvk COVID-19in adults and children [12 years of [...] the medicines you take, including prescription and oxvv-rwh-qprbkdq medicines, vitamins, and herbal supplements. Some medicines [...] oral midazolam Apalutamide Carbamazepine, phenobarbital, phenytoin Rifampin Tonio s Wort (hypericum perforatum) Taking PAXLOVID with [...] (remdesivir) is FDA-approved for the treatment of iboy-wr-ekrlzhqv COVID-19 in certain adults and children. Talk with your doctor to see if Veklury is appropriate for you. Like PAXLOVID, FDA may also allow for the emergency use of other medicines to treat people with COVID-19. Go to https://www.fda.gov/ssmajymjn-nxpllzirxvlx-jvlvoczjlqr/qxd-aivqk-vhjzdztwxf-and- policy-framework/rqcrqqgmr-otb-jymzhwcbrvybq for information on the emergency use of [...] if I am or ? There is astronomy department chair treating women or mothers with PAXLOVID. For [...] not go away. Report side effects to [facility] at www.REH.gov/medservtagtch or call 2-431-WNE1749 or you can reportside effects to [employer] at the contact information provided below. Website Fax number Telephone number Dunamu How should I store PAXLOVID? Store PAXLOVID [...] (EUA). The EUA is supported by a [place] of Health and Human Service (HHS) declaration that circumstances exist to justify the emergency use of drugs and biological productsduring the COVID-19 pandemic. PAXLOVID for the treatment of hfff-cb-wfzmfgne COVID-19 in adults and children [12 years [...] telephone number provided below. Website Telephone number wwwBeanup (1-642-M31-PACK) You can also go to www.Learnerator or call for more information. Pfizer Distributed by [employer] [place] [place] [address] [id number] Revised: 12 September 2021 documented in this encounterPomerene Hospital10-27-2022 History of Present illness Narrative* Marion [...] agrees to the visit: Yes Patient Location: [facility] Melvin Riddle is a 81 year old male who is contacted today for a phone visit This is an establishedpatient of Dr. Jacquelin Spaulding MD Reports: Covid +, was seen in [facility] care for cold symptoms. Having chest/sinus [...] Laterality Date COLONOSCOPY N/A 02/22/2018 Dr. Kaye, [facility] EGD N/A 02/22/2018 Dr. Kaye at [facility] HERNIA REPAIR HX N/A 02/2018 hernia surgery [...] minutes Nirmatrelvir/Ritonavir (Paxlovid) Eligibility and Patient Discussion [facility] Formulary Restriction Criteria: Adult outpatients 18 [...] The patient was provided electronically with the "Fact Sheet for Patients, Parents and Caregivers". The patient was also instructed that in addition to the treatment with nirmatrelvir/ritonavir, he/she should continue to self-isolate and use infection control measures (e.g., wear mask, isolate, social distance, avoid sharing personal items, clean and disinfect "high touch" surfaces, and frequent h andwashing) according to [...] APRN.CNP This note was partially generated using Veracyte voice recognition system. Note was reviewed for accuracy. There may be minor misspellings or grammar miscues with Veracyte voice recognition. documented in this encounterPomerene Hospital10-26-2022 History of Present illness Narrative* Waqas [...] Laterality Date COLONOSCOPY N/A 02/22/2018 Dr. Kaye, [facility] EGD N/A 02/22/2018 Dr. Kaye at [facility] HERNIA REPAIR HX N/A 02/2018 hernia surgery [...] paxlovid if positive, setting up for virtual express care. -if positive for flu tx with tamiflu. - COVID WITH FLUA+B, ROUTINE Waqas Olmos APRN.CNP documented in this encounterPomerene Hospital10-26-2022 Instructions* Patient Instructions* Waqas Olmos APRN.CNP [...] or concerning to you. documented in this encounterPomerene Hospital10-25-2022 History of Present illness Narrative* Vikas [...] Laterality Date COLONOSCOPY N/A 02/22/2018 Dr. Kaye, [facility] EGD N/A 02/22/2018 Dr. Kaye at [facility] HERNIA REPAIR HX N/A 02/2018 hernia surgery [...] symptomatically. Vikas Everett MD documented in this encounterPomerene Hospital10-14-2022 NoteHNO ID: [id number] Author: Catherine Crow MD Service: ? Author Type: Physician Type: Progress Notes Filed: 04/10/2022 2:38 PM Note Text: Catherine Crow MD [facility] General Geriatrics [address] [place] [address] AMBULATORY TELEPHONE VISIT GERIATRIC MEDICINE FOLLOW UP [...] Laterality Date COLONOSCOPY N/A 02/22/2018 Dr. Kaye, [facility] EGD N/A 02/22/2018 Dr. Kaye at [facility] HERNIA REPAIR HX N/A 02/2018 hernia surgery [...] CATHERINE CROW MD GERIATRIC MEDICINE [facility] Discussed the above with the patient using shared decision making. The patient is in agreement with the diagnostic and treatment plans. This note was partially generated using Veracyte voice recognition system, and there may be some incorrect words, spellings, and punctuation that were not noted in checking the note before saving.[facility] 04-10-2022 History of Present illness Narrative* Catherine Crow MD - 04/10/2022 2:28 PM EDT Images from the original note were not included. Catherine Crow MD [facility] Geriatrics [facility]. [address] [place] [address] AMBULATORY TELEPHONE VISIT GERIATRIC MEDICINE FOLLOW UP [...] Laterality Date COLONOSCOPY N/A 02/22/2018 Dr. Kaye, [facility] EGD N/A 02/22/2018 Dr. Kaye at [facility] HERNIA REPAIR HX N/A 02/2018 hernia surgery [...] CATHERINE CROW MD GERIATRIC MEDICINE [facility] Discussed the above with the patient using shared decision making. The patient is in agreement with the diagnostic and treatment plans. This note was partially generated using Veracyte voice recognition system, and there may be some incorrect words, spellings, and punctuation that were not noted in checking the note before saving. documented in this encounterPomerene Hospital10-11-2022 Miscellaneous Notes* Telephone Encounter - Catherine [...] blood work is normal. documented in this encounterPomerene Hospital09-23-2022 NoteHNO ID: [id number] Author: Catherine Crow MD Service: ? Author Type: Physician Type: Progress Notes Filed: 04/20/2022 10:22 AM Note Text: Catherine Crow MD [facility] General Geriatrics [address] [place] [address] COMPREHENSIVE GERIATRICS ASSESSMENT Patient presents with: Geriatric [...] more steeply. 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 He needs a "shai at work" to help guide him if he needs. Does not take any medications. Has forgotten to turn off stove. Per his last PCP note, he also did get lost driving. Home: lives at home with his daughter Social Engagement: pt works at [employer] in the [employer] department Hobbies: walking the dogs. Likes to [...] been discussed? Yes Is a power of bill adjuster in place for financial needs? Yes Is a power of bill adjuster in place for health care decisions? Yes [...] A, Transportation:D, Medications: D, Handle Finances: A. (Cambridge scale): 0 Mobility Aid: None Falls: .: Falls in the last 12 months: Positive: 1 fall. If + falls: Late Spring/Early Summer - in the garage was bending over trying to grab something after he was leaning over to slate picker the beer can and ended up passing out when he stood back up. He ended up having a laceration on his forehead and needed sutures. No LOC. (?Vasovagal?) Safety Assessment Checklist Questions (Yes/ No) 1. Is the patient still driving? Yes - no issues with familiar places. He do (more content not included)...[facility]09-23-[facility] History of Present illness Narrative* Catherine Crow MD - 03/20/2022 9:20 AM EDT Images from the original note were not included. Catherine Crow MD [facility] Geriatrics [address] [place] [address] COMPREHENSIVE GERIATRICS ASSESSMENT Patient presents with: Geriatric [...] more steeply. 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 He needs a "shai at work" to help guide him if he needs. Does not take any medications. Has forgotten to turn off stove. Per his last PCP note, he also did get lost driving. Home: lives at home with his daughter Social Engagement: pt works at [employer] in the [employer] department Hobbies: walking the dogs. Likes to [...] been discussed? Yes Is a power of bill adjuster in place for financial needs? Yes Is a power of bill adjuster in place for health care decisions? Yes [...] A, Transportation:D, Medications: D, Handle Finances: A. (Cambridge scale): 0 Mobility Aid: None Falls: .: Falls in the last 12 months: Positive: 1 fall. If + falls: Late Spring/Early Summer - in the garage was bending over trying to grab something after he was leaning over to slate picker the beer can and ended up [...] vision impairment and wears glasses Follows with outreach associate:YES Hearing - Hearing aid : Hearing impairment, no hearing aids ALLERGIES No Known Allergies History reviewed. No pertinent past medical history. PAST SURGICAL HISTORY Procedure Laterality Date COLONOSCOPY N/A 02/22/2018 Dr. Kaye, [facility] EGD N/A 02/22/2018 Dr. Kaye at [facility] HERNIA REPAIR HX N/A 02/2018 hernia surgery [...] impairment: Vitamin B12, TFTs, Vitamin D Suggested "Blue Zones" lifestyle principles: I) Aerobic exercise II) Mediterranean diet III) Increased socialization IV) Sense of purpose/"Ikigai" V) Reading, crossword puzzles, word jumbles, [place]o, "Lumosity" Mobility: - Patient is Partially independent, with [...] of care. CATHERINE CROW MD GERIATRIC MEDICINE [facility] Discussed the above with the patient using shared decision making. The patient is in agreement with the diagnostic and treatment plans. This note was partially generated using [employer] voice recognition system, and there may be some incorrect words, spellings, and punctuation that were not noted in checking the note before saving. documented [facility] History of Present illness Narrative* Jacquelin [...] what day it is. 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 His daughter says they do not let him work by himself. Complains of varicose veins; does not like how they look. Uses compression stockings in the winter. Past medical history, appointments, medications, allergies reviewed. Previous Medical History No past medical history on file. Previous Surgical History PAST SURGICAL HISTORY Procedure Laterality Date COLONOSCOPY N/A 02/22/2018 Dr. Kaye, [facility] EGD N/A 02/22/2018 Dr. Kaye at [facility] HERNIA REPAIR HX N/A 02/2018 hernia surgery [...] Past Histories independently gathered by the clinical field support engineer and the remaining scribed note accurately describes [...] PM. Chelo Graham Ma documented in this [facility]12-[facility] Consult note Author Poncho Munson [facility] Note Date/Time January 07, 2025 9:42 pm [facility] Medical Records Department [address] [place] [address] Pre-Anesthesia Evaluation 01/07/252141 MR#: [id number] Acct: [id number] Name: MELVIN RIDDLE Rep #:[id number] : 1940 84 From: Poncho Munson MD PCP: Dr. Jacquelin Spaulding MD Status:RE G SDC Y Race: C Location: [place] [address] ASA Classification* ASA Classification ASA Classification: 2 and E Assessment & Plan Anesthesia* Anesthesia Assessment Anesthesia Assessment: Discussed sedation and/or anesthesia options, risks, benefits, and alternatives with patient/parents/legal guardian/POA. Questions invited. The patient/parents/legal guardian/POA seems to understand and agrees to proceedwith anesthesia plan. Reviewed the physical assessment, medical history, allergy history and patient home medications list prior to surgery/procedure/anesthetic and documented any changes. Performed airway and anesthesia risk assessments. Anesthesia Type Anesthesia Type: MAC Anesthesia Focused Assessment* Temperature: 98 F Pulse Rate: 78 Blood Pressure: 148/77 Respiratory Rate: 16 Pulse Ox: 98 Airway Assessment Mouth opens: >3 cm Mallampati Score: II Labs Anesthesia Preop lab: CBC WBC 7.4 K/mm3 (4.4-11.0) 01/28/24 11:25 01/28/24 RBC 4.59 M/mm3 (4.6-6.2) L 01/28/24 11:25 01/28/24 Hgb 14.6 g/dL (13.0-16.5) 01/28/24 11:25 01/28/24 Hct 42.9 % (40-54) 01/28/24 11:25 01/28/24 Plt Count 202 K/mm3 (150-450) 01/28/24 11:25 01/28/24 CHEMISTRY Potassium 4.4 mmol/L (3.5-5.1) 01/28/24 11:25 01/28/24 Sodium 138 mmol/L (136-145) 01/28/24 11:25 01/28/24 BUN 8 mg/dL (7-18) 01/28/24 11:25 01/28/24 Creatinine 0.76 mg/dL (0.70-1.30) 01/28/24 11:25 01/28/24 Glucose 103 mg/dL (74-106) 01/28/24 11:25 01/28/24 COAG Pre-Assessment Diagnosis/Proposed Procedure Planned Operative Procedure(s): EGD, Remove FB esophogus Anesthesia History 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 When Was Last Pacemaker Check QUESTION #4 FULL TEXT: You/Your Family Experience fever (hyperthermia) with Anesthesia Last Oral Intake Last Oral intake: Last Oral Intake NPO since Meds taken in AM with sips of water? Meds patient instructed to take am of surgery PONV PONV - route relief driver: PONV - route relief driver Female HX of Motion Sickness HX of N/V After Surgery Non-Smoker Duration of Surgery greater than 60 minutes Number of Risk Factors PONV Score Height & Weight Height & Weight: Anesthesia: Height & Weight Height 5 ft 6 in 01/07/25 20:20 Weight: 76.657 kg 01/07/25 20:20 Body Mass Index (BMI) 27.2 01/07/25 20:20 Respiratory Assessment Respiratory Assessment - route relief driver: Respiratory Tract Infection Hx - route relief driver Hx Respiratory Tract Infection No 03/17/18 13:47 STOP Sleep Apnea STOP Sleep Apnea - route relief driver: STOP Sleep Apnea - route relief driver Hx Hypertension No 09/07/19 13:38 Hx Sleep Apnea No 09/07/19 13:38 CPAP BIPAP Do you snore loudly (louder than talking or can be heard Do you often feel tired/ fatigued/ sleepy during daytime? Has anyone observed you stop breathing during sleep? STOP Results QUESTION #5 FULL TEXT : Do you snore loudly (louder than talking or can be heard through closed doors)? 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 Specify any problems Hx of Preganancy in last 3 Months Nurse Filling Out Transfusion & Questions: Date: Time: Patient unable to answer at this time (ie. confused, unrespo /Reproduction History /Reproductive History - route relief driver: /Reproductive Hx- route relief driver Hx Now Gestational Age (in weeks): EDC: Hx Hx Para Hx Section SAB PFSH Medical History Right inguinal hernia History of inguinal hernia Abdominal pain COPD (chronic obstructive pulmonary disease) Pulmonary fibrosis Home Medications ?Medication ?Instructions ?Recorded ?Last Taken ?Type memantine 5 mg tablet 5 mg PO DAILY 05/22/23 Unkno wn History nirmatrelvir 300 mg (150 mg See Rx Instructions PO .CO MPLEX 05/22/23 Unknown Rx x2)-ritonavir 100 mg tablet,dose #30 tabs pack (Paxlovid) ondansetron 4 mg disintegrating 4 mg PO Q8H PRN PRN Na usea #14 tabs 05/22/23 Unknown Rx tablet Allergy/AdvReac Type Severity Reaction Status Date / Time No Known Allergies Allergy Verified 01/07/25 20:20 Family History Mother Myocardial infarction Brother Myocardial infarction Father Emphysema of lung Surgical History History of right inguinal hernia repair (~03/24/18) History of tooth extraction Social History Smoking Status: Former smoker Review of Systems (Anesthesia) ROS Narrative System reviewed and no additional complaints, except as documented. 01/07/252141 <Electronically signed by Poncho Munson MD > Date _ Poncho Munson MD Cosigner Signature: Date CC: ~ Signed [facility] Work Phone: [phone] Consult note Author Poncho Rafaelmarcial [facility] Note Date/Time January 07, 2025 10:3 7pm [facility] Medical Records Department [address] [place] [address] Anesthesia Postop Eval I 01/07/252235 MR#: [id number] Acct: [id number] Name: MELVIN RIDDLE Rep #:[id number] : 1940 84 From: Poncho Munson MD PCP: Dr. Jacquelin Spaulding MD Status:RE G [facility] Y Race: C Location: [place] [address] Anesthesia: Postop Eval I Current Vital Signs Temperature: 97.6 F Pulse Rate: 100 Blood Pressure: 145/77 Respiratory Rate: 16 Pulse Ox: 94 Oxygen Delivery Method: Nasal Cannula Oxygen Flow Rate (L/min): 2 Assessment Airway patent: Yes Spontaneous unlabored respirations: Yes Mental status: Awake and Calm nausea: No Vomiting: No Anesthesia Complication: No Fluid Hydration Crystalloid volume administer (ml): 50 Total IV fluid infused: 50 Progress Note Anesthesia document: Postop Eval 1 completed: Yes 01/07/252236 <Electronically signed by Poncho Munson MD > Date _ Poncho Munson MD [facility] Signature: Date CC: ~ Signed [facility] Work Phone: Consult note Author Poncho Rafaelmarcial [facility] Note Date/Time January 07, 2025 11:1 5pm [facility] Medical Records Department [address] [place] [address] Anesthesia Postop Eval II 01/07/252236 MR#: [id number] Acct: [id number] Name: MELVIN RIDDLE Rep #:[id number] : 1940 84 From: Poncho Munson MD PCP: Dr. Jacquelin Spaulding MD Status:RE G SD Y Race: C Location: [facility]- Anesthesia Postop Eval I Sum Postop Eval Completion status Anesthesia document: Postop Eval 1 completed: Yes Anesthesia Postop Eval I Summary Anesthesia Postop Eval I Summary: Anesthesia Postop Eval I: Assessment Summary Airway patent Yes 01/07/25 22:37 Spontaneous unlabored Yes 01/07/25 22:37 respirations Mental status Awake,Calm 01/07/25 22:37 nausea No 01/07/25 22:37 Vomiting No 01/07/25 22:37 Anesthesia Postop Eval I: Fluid Summary Crystalloid volume administer 50 01/07/25 22:37 (ml) Colloids volume administered ( ml) Blood Product volume administered (ml) Total IV fluid infused 50 01/07/25 22:37 Anesthesia Postop Eval I: Summary Notes Anesthesia Complication No 01/07/25 22:37 Anesthesia Complication Comment: Post-operative progress note Anesthesia: Postop Eval II Evaluation Mental status: Awake and Calm Pain Level: 0 nausea: No Vomiting: No 01/07/25 <Electronically signed by Poncho Munson MD > Date _ Poncho Munson MD Cosigner Signature: Date CC: ~ Signed [facility] Work Phone: Evaluation note* Diagnosis Memory deficit- Primary Memory loss Varicose veins of both lower extremities, unspecified whether complicated [facility]* Diagnosis Mild late onset Alzh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, psychotic disturbance, mood disturbance, or anxiety (HCC)- Primary [facility]* Diagnosis Mild dementia- Primary Dementia, unspecified, without behavioral disturbance Memory deficit Memory loss Vitamin D deficiency Unspecified vitamin D deficiency Mild late onset Alzheimer's dementia, unspecified whether behavioral, psychotic, or mood disturbance or anxiety (HCC) [facility] [place]* Diagnosis Rash- Primary Rash and other nonspecific skin eruption Acute cough documented in this encounter [facility] note* Diagnosis URI, acute- Primary Acute upper respiratory infections of unspecified site documented in this encounter [facility] note* Diagnosis COVID-19- Primary [facility] [place] [facility]* Diagnosis Contact dermatitis, unspecified contact dermatitis type, unspecified trigger- Primary Mild dementia Dementia, unspecified, without behavioral disturbance Mild Alzheimer's dementia, unspecified timing of dementia onset, unspecified whether behavioral, psychotic, or mood disturbance or anxiety (HCC) documented in this encounter [facility] note* Diagnosis Mild dementia, unspecified dementia type, unspecified whether behavioral, psychotic, or mood disturbance or anxiety (HCC) Pulmonary emphysema, unspecified emphysema type (HCC) Vitamin B12 deficiency Other B-complex deficiencies Sleeping difficulties Sleep disturbance, unspecified Excessive drinking alcohol Alcohol abuse, unspecified documented [facility] [place] [facility]* Diagnosis Mild dementia (HCC) Dementia, unspecified, without behavioral disturbance documented in this encounter [facility] noteNo assessment information [facility]al[facility] Work Phone: Evaluation note* Diagnosis Mild dementia (HCC)- Primary Dementia, unspecified, without behavioral disturbance Vitamin B12 deficiency Other B-complex deficiencies Mild dementia without behavioral disturbance, psychotic disturbance, mood disturbance, or anxiety, unspecified dementia type (HCC) documented in this encounter [facility] note* Diagnosis Mild dementia (HCC) Dementia, unspecified, without behavioral disturbance Vitamin B12 deficiency Other B-complex deficiencies [facility] [place] [facility]* Diagnosis Fall, initial encounter- Primary [facility] [place] [facility]* Diagnosis Fall, sequela- Primary Mild dementia without behavioral disturbance, psychotic disturbance, mood disturbance, or anxiety, unspecified dementia type (HCC) documented in this encounter [facility] note* Diagnosis Encounter for Medicare annual wellness [...] single bacterial disease [facility] [place] [facility]* Diagnosis Bilateral leg edema- Primary Edema Mild dementia without behavioral disturbance, psychotic disturbance, mood disturbance, or anxiety, unspecified dementia type (HCC) Episode of gagging Other diseases of pharynx, not elsewhere classified Esophageal dysphagia Dysphagia, pharyngoesophageal phase documented [facility] this encounter [facility] [place] [facility]* Diagnosis Bilateral leg edema- Primary Edema Small vessel disease (HCC) Peripheral vascular disease, unspecified Episode of gagging Other diseases of pharynx, not elsewhere classified Esophageal dysphagia Dysphagia, pharyngoesophageal phase Mild dementia without behavioral disturbance, psychotic disturbance, mood disturbance, or anxiety, unspecified dementia type (HCC) documented [facility] this encounter [facility] [place] [facility]* Diagnosis Esophageal dysphagia Dysphagia, pharyngoesophageal phase documented [facility] [place] [facility]* Diagnosis Moderate dementia, unspecified dementia type, unspecified whether behavioral, psychotic, or mood disturbance or anxiety (HCC)- Primary Need for vaccination Need for prophylactic vaccination and inoculation against unspecified single disease Vitamin B12 deficiency Other B-complex deficiencies Bilateral leg edema Edema documented in this encounter [facility] note* Diagnosis Onset Date Resolution Status Admit Date Esophageal obstruction due t o food impaction acute January 07, 2025 8:56pm [facility] Work Phone: History and physical note Author Satinder Branch [facility] Note Date/Time January 07, 2025 10:0 4pm [facility] Medical Records Department [address] [place] [address] H&P Exam - Surgical 01/07/251 MR#: [id number] Acct: [id number] Name: MELVIN RIDDLE Rep #:[id number] : 1940 84 From: Satinder alvarez MD PCP: Dr. Jacquelin Spaulding MD Status:[facility] Location: [facility] AC-TB A-1 HPI - General HPI Narrative MELVIN RIDDLE, is a 84 M who presents with esophageal foreign body impaction. Thepatient reports he was eating a turkey burger and this got stuck and he choked on it and he is now not able to control his secretions and he is spitting up hissaliva. The ER tried glucagon to no avail and they tried diet Coke as well. The patient has had esophageal foreign body impaction in the past. [facility] Medical History Right inguinal hernia History of inguinal hernia Abdominal pain COPD (chronic obstructive pulmonary disease) Pulmonary fibrosis Home Medications ?Medication ?Instructions ?Recorded ?Last Taken ?Type memantine 5 mg tablet 5 mg PO DAILY 05/22/23 Unkno wn History nirmatrelvir 300 mg (150 mg See Rx Instructions PO .CO MPLEX 05/22/23 Unknown Rx x2)-ritonavir 100 mg tablet,dose #30 tabs pack (Paxlovid) ondansetron 4 mg disintegrating 4 mg PO Q8H PRN PRN Na usea #14 tabs 05/22/23 Unknown Rx tablet Allergy/AdvReac Type Severity Reaction Status Date / Time No Known Allergies Allergy Verified 01/07/25 20:20 Family History Mother Myocardial infarction Brother Myocardial infarction Father Emphysema of lung Surgical History History of right inguinal hernia repair (~03/24/18) History of tooth extraction Social History Smoking Status: Former smoker Vital Signs Vital Signs Vital Signs: 01/07/25 20:20 01/07/25 20:28 01/07/25 21:20 Temperature 98 F Temperature Source Oral Pulse Rate 78 88 Respiratory Rate 16 16 Respiratory Effort Normal Blood Pressure 148/77 H 129/72 H Blood Pressure Mean 100 91 Pulse Ox 98 98 Oxygen Delivery Method Room Air Room Air 01/07/25 21:42 Temperature 98 F Temperature Source Pulse Rate 78 Respiratory Rate 16 Respiratory Effort Blood Pressure 148/77 H Blood Pressure Mean Pulse Ox 98 Oxygen Delivery Method Weight Weight: 169 lb Body Mass Index (BMI) 27.2 Physical Exam Const oriented x3 and no apparent distress Resp normal respiratory effort GI soft to palpation and non-tender Assessment & Plan Assessment/Plan (1) Esophageal obstruction due to food impaction: PLAN: The patient has esophageal impaction of food causing obstruction. I recommended EGD to the patient's daughter who got combative and wanted to try the glucagon instead. [facility] The patient's other daughter agreed to proceed on the patient's behalf. The patient's other daughter reports that they share POA. The patient does have dementia. The patient would like to proceed with EGD. I explained endoscopy in detail to the patient. I explained the risks includingbut not limited to stroke or heart attack with anesthesia, perforation of the GItract, bleeding, infection. I explained that any of these could necessitate further emergency surgery. The patient understands and all questions were answered sufficiently. I discussed the increased risk of perforation or bleeding with removal of the foreign body. The patient and his daughter wish toproceed with procedure. Satinder Branch MD Pager: [facility] [address] [place] [address], [address] [place] [address] Office: 01/07/252203 <Electronically signed by Satinder Branch MD> Cosigner Signature (if applicable): CC: Dr. Satinder Branch MD; Dr. Jacquelin Spaulding MD~ Signed [facility] Work Phone: History and physical note Author Satinder Branch [facility] Note Date/Time January 07, 2025 10:0 4pm [facility] Medical Records Department [address] [place] [address] H&P Exam - Surgical 01/07/252200 MR#: [id number] Acct: [id number] Name: MELVIN RIDDLE Rep #:[id number] : 1940 84 From: Satinder alvarez MD PCP: Dr. Jacquelin Spaulding MD Status:[facility] Location: [facility] A-1 HPI - General HPI Narrative MELVIN RIDDLE, is a 84 M who presents with esophageal foreign body impaction. Thepatient reports he was eating a turkey burger and this got stuck and he choked on it and he is now not able to control his secretions and he is spitting up hissaliva. The ER tried glucagon to no avail and they tried diet Coke as well. The patient has had esophageal foreign body impaction in the past. [facility] Medical History Right inguinal hernia History of inguinal hernia Abdominal pain COPD (chronic obstructive pulmonary disease) Pulmonary fibrosis Home Medications ?Medication ?Instructions ?Recorded ?Last Taken ?Type memantine 5 mg tablet 5 mg PO DAILY 05/22/23 Unkno wn History nirmatrelvir 300 mg (150 mg See Rx Instructions PO .CO MPLEX 05/22/23 Unknown Rx x2)-ritonavir 100 mg tablet,dose #30 tabs pack (Paxlovid) ondansetron 4 mg disintegrating 4 mg PO Q8H PRN PRN Na usea #14 tabs 05/22/23 Unknown Rx tablet Allergy/AdvReac Type Severity Reaction Status Date / Time No Known Allergies Allergy Verified 01/07/25 20:20 Family History Mother Myocardial infarction Brother Myocardial infarction Father Emphysema of lung Surgical History History of right inguinal hernia repair (~03/24/18) History of tooth extraction Social History Smoking Status: Former smoker Vital Signs Vital Signs Vital Signs: 01/07/25 20:20 01/07/25 20:28 01/07/25 21:20 Temperature 98 F Temperature Source Oral Pulse Rate 78 88 Respiratory Rate 16 16 Respiratory Effort Normal Blood Pressure 148/77 H 129/72 H Blood Pressure Mean 100 91 Pulse Ox 98 98 Oxygen Delivery Method Room Air Room Air 01/07/25 21:42 Temperature 98 F Temperature Source Pulse Rate 78 Respiratory Rate 16 Respiratory Effort Blood Pressure 148/77 H Blood Pressure Mean Pulse Ox 98 Oxygen Delivery Method Weight Weight: 169 lb Body Mass Index (BMI) 27.2 Physical Exam Const oriented x3 and no apparent distress Resp normal respiratory effort GI soft to palpation and non-tender Assessment & Plan Assessment/Plan (1) Esophageal obstruction due to food impaction: PLAN: The patient has esophageal impaction of food causing obstruction. I recommended EGD to the patient's daughter who got combative and wanted to try the glucagon instead. There was a confrontation between [facility] and the patient's daughter. The patient's other daughter agreed to proceed on the patient's behalf. The patient's other daughter reports that they share POA. The patient does have dementia. The patient would like to proceed with EGD. I explained endoscopy in detail to the patient. I explained the risks includingbut not limited to stroke or heart attack with anesthesia, perforation of the GItract, bleeding, infection. I explained that any of these could necessitate further emergency surgery. The patient understands and all questions were answered sufficiently. I discussed the increased risk of perforation or bleeding with removal of the foreign body. The patient and his daughter wish toproceed with procedure. Satinder Branch MD Pager: [facility] [address] [place] [address], [address] [place] [phone] Office: 01/07/252203 <Electronically signed by Satinder Branch MD> Cosigner Signature (if applicable): CC: Dr. Satinder Branch MD; Dr. Jacquelin Spaulding MD~ Signed [facility] Work Phone: Reason for referral (narrative)* Diagnostic Procedure Only (Routine) - Authorized Specialty Diagnoses / Procedures [facility] Referred To Contact XR IMAGING Diagnoses Esophageal dysphagia Procedures XR ESOPHAGRAM RADIOLOGIC EXAM ESOPHAGUS SINGLE CONTRAST STUDY Jacquelin Spaulding MD [address] [place] [address] [place] [address] Referral ID Status Reason Start Date Expiration Date Visits Requested Visits Authorized [id number] Authorized Auto-Generat ed Referral 07/14/2024 08/13/2025 1 1 * Outpatient Procedure (Routine) - Authorized Specialty Diagnoses / Procedures [facility] Diagnoses Bilateral leg edema Procedures PVR ANK PRESS BENNY VAS [facility] NON-INVAS PHYSIOLOGIC STD EXTREMITY ART 2 LEVEL Jacquelin Spaulding MD [address] [place] [address] [facility] [place] [address] [place] [address] Referral ID Status Reason Start Date Expiration Date Visits Requested Visits Authorized [id number] Authorized Auto-Generat ed Referral 07/14/2024 07/14/2025 1 1 [facility]ative)No reason for referral information availableWSalem [facility] Work Phone: Reason for visit Narrative* Diagnostic Procedure Only (Routine) - Closed Specialty Diagnoses / Procedures Referred By Contac t Referred To Contact XR IMAGING Diagnoses Esophageal dysphagia Procedures XR ESOPHAGRAM RADIOLOGIC EXAM ESOPHAGUS SINGLE CONTRAST STUDY Jacquelin Spaulding MD [address] [place] [address] Phone: tel: fax: [place] [address] Referral ID Status Reason Start Date Expiration Date V isits Requested Visits Authorized [id number] Closed Auto-Generate d Referral 07/14/2024 08/13/2025 1 1 [facility] Reason for Referral Specialty Diagnoses / Procedures Referred By Contac t Referred To Contact Gerontology Diagnoses Memory deficit Procedures CONSULT TO GERIATRICS OFFICE/OUTPATIENT [facility] MDM 60-74 MINUTES Jacquelin Spaulding MD [address] [place] [address] Referral ID Status Reason Start Date Expiration Date Visits Requested Visits Authorized [id number] Pending Review PCP Requested Referral 02/27/2022 02/27/2023 1 1 Specialty Diagnoses / Procedures Referred By Contac t Referred To Contact Dermatology Diagnoses Contact dermatitis, unspecified contact dermatitis type, unspecified trigger Procedures CONSULT TO DERMATOLOGY Marion Blair APRN.CNP [address] [place] [address] Referral ID Status Reason Start Date Expiration Date Visits Requested Visits Authorized [id number] Ref Not Required PCP Requested Referral 2 06/10/2023 1 1 Summary Purpose Family History Relationship Condition Age at Onset Recorded Date/T chay mother Myocardial infarction Unknown brother Myocardial infarction Unknown father Pulmonary emphysema Unknown Advance Directives Advance Directive Response Recorded Date/ Time Living Will No September 08, 2021 5:36am Power of Prenatal Teacher No September 08 5:36am Advance Directive Response Recorded Date/ Time Do you have a Healthcare Power of Prenatal Teacher? Yes January 07, 2025 8:26pm Advance Directive Response Recorded Date/ Time Do you have a Healthcare Power of Prenatal Teacher? Yes January 07, 2025 8:26pm Do you have a Healthcare Power of Prenatal Teacher? No January 08, 2025 4:57pm Health Concerns Infection Onset Date Last Indicated Resolved Time COVID-19 Confirmed 04/22/2022 04/22/2022 Chief Complaint and Reason for Visit Chief Complaint general illness Chief Complaint Admit Date EGD January 07, 2025 8:56 pm Esophagogastroduodenoscopy January 07 10:01pm Reason for Visit Admit Date Esophageal obstruction due to food impac tion January 07, 2025 8:56pm Chief Complaint Admit Date EGD January 07, 2025 8:56 pm Esophagogastroduodenoscopy January 07 10:01pm PNEUMONIA, ASPIRATION, HYPOXIA December 7:19pm Additional Source Comments Source Comments (unrecognize d section and content) In the event this informatio n is protected by the Federal Confidentiality of Alcohol and Drug Abuse Patient Records regulations: The Federal rules restrict any use of the information to criminally investigate or prosecute any alcohol or drug abuse patient.[facility] the event this information is protected by the Federal Confidentiality of Alcohol and Drug Abuse Patient Records regulations: The Federal rules restrict any use of the information to criminally investigate or prosecute any alcohol or drug abuse patient.[facility] HospitalIn the event this information is protected by the Federal Confidentiality of Alcohol and Drug Abuse Patient Records regulations: The Federal rules restrict any use of the information to criminally investigate or prosecute any alcohol or drug abuse patient.[facility] HospitalIn the event this information is protected by the Federal Confidentiality of Alcohol and Drug Abuse Patient Records regulations: The Federal rules restrict any use of the information to criminally investigate or prosecute any alcohol or drug abuse patient.[facility] HospitalIn the event this information is protected by the Federal Confidentiality of Alcohol and Drug Abuse Patient Records regulations: The Federal rules restrict any use of the information to criminally investigate or prosecute any alcohol or drug abuse patient.[facility] HospitalIn the event this information is protected by the Federal Confidentiality of Alcohol and Drug Abuse Patient Records regulations: The Federal rules restrict any use of the information to criminally investigate or prosecute any alcohol or drug abuse patient.[facility] HospitalIn the event this information is protected by the Federal Confidentiality of Alcohol and Drug Abuse Patient Records regulations: The Federal rules restrict any use of the information to criminally investigate or prosecute any alcohol or drug abuse patient.[facility] HospitalIn the event this information is protected by the Federal Confidentiality of Alcohol and Drug Abuse Patient Records regulations: The Federal rules restrict any use of the information to criminally investigate or prosecute any alcohol or drug abuse patient.[facility] HospitalIn the event this information is protected by the Federal Confidentiality of Alcohol and Drug Abuse Patient Records regulations: The Federal rules restrict any use of the information to criminally investigate or prosecute any alcohol or drug abuse patient.[facility] HospitalIn the event this information is protected by the Federal Confidentiality of Alcohol and Drug Abuse Patient Records regulations: The Federal rules restrict any use of the information to criminally investigate or prosecute any alcohol or drug abuse patient.[facility] HospitalIn the event this information is protected by the Federal Confidentiality of Alcohol and Drug Abuse Patient Records regulations: The Federal rules restrict any use of the information to criminally investigate or prosecute any alcohol or drug abuse patient.[facility] HospitalIn the event this information is protected by the Federal Confidentiality of Alcohol and Drug Abuse Patient Records regulations: The Federal rules restrict any use of the information to criminally investigate or prosecute any alcohol or drug abuse patient.[facility] HospitalIn the event this information is protected by the Federal Confidentiality of Alcohol and Drug Abuse Patient Records regulations: The Federal rules restrict any use of the information to criminally investigate or prosecute any alcohol or drug abuse patient.[facility] HospitalIn the event this information is protected by the Federal Confidentiality of Alcohol and Drug Abuse Patient Records regulations: The Federal rules restrict any use of the information to criminally investigate or prosecute any alcohol or drug abuse patient.[facility] HospitalIn the event this information is protected by the Federal Confidentiality of Alcohol and Drug Abuse Patient Records regulations: The Federal rules restrict any use of the information to criminally investigate or prosecute any alcohol or drug abuse patient.[facility] HospitalIn the event this information is protected by the Federal Confidentiality of Alcohol and Drug Abuse Patient Records regulations: The Federal rules restrict any use of the information to criminally investigate or prosecute any alcohol or drug abuse patient.[facility] HospitalIn the event this information is protected by the Federal Confidentiality of Alcohol and Drug Abuse Patient Records regulations: The Federal rules restrict any use of the information to criminally investigate or prosecute any alcohol or drug abuse patient.[facility] HospitalIn the event this information is protected by the Federal Confidentiality of Alcohol and Drug Abuse Patient Records regulations: The Federal rules restrict any use of the information to criminally investigate or prosecute any alcohol or drug abuse patient.[facility] HospitalIn the event this information is protected by the Federal Confidentiality of Alcohol and Drug Abuse Patient Records regulations: The Federal rules restrict any use of the information to criminally investigate or prosecute any alcohol or drug abuse patient.[facility] HospitalIn the event this information is protected by the Federal Confidentiality of Alcohol and Drug Abuse Patient Records regulations: The Federal rules restrict any use of the information to criminally investigate or prosecute any alcohol or drug abuse patient.[facility] HospitalIn the event this information is protected by the Federal Confidentiality of Alcohol and Drug Abuse Patient Records regulations: The Federal rules restrict any use of the information to criminally investigate or prosecute any alcohol or drug abuse patient.[facility] HospitalIn the event this information is protected by the Federal Confidentiality of Alcohol and Drug Abuse Patient Records regulations: The Federal rules restrict any use of the information to criminally investigate or prosecute any alcohol or drug abuse patient.[facility] HospitalIn the event this information is protected by the Federal Confidentiality of Alcohol and Drug Abuse Patient Records regulations: The Federal rules restrict any use of the information to criminally investigate or prosecute any alcohol or drug abuse patient.[facility] HospitalIn the event this information is protected by the Federal Confidentiality of Alcohol and Drug Abuse Patient Records regulations: The Federal rules restrict any use of the information to criminally investigate or prosecute any alcohol or drug abuse patient.[facility] HospitalIn the event this information is protected by the Federal Confidentiality of Alcohol and Drug Abuse Patient Records regulations: The Federal rules restrict any use of the information to criminally investigate or prosecute any alcohol or drug abuse patient.[facility] HospitalIn the event this information is protected by the Federal Confidentiality of Alcohol and Drug Abuse Patient Records regulations: The Federal rules restrict any use of the information to criminally investigate or prosecute any alcohol or drug abuse patient.[facility] HospitalIn the event this information is protected by the Federal Confidentiality of Alcohol and Drug Abuse Patient Records regulations: The Federal rules restrict any use of the information to criminally investigate or prosecute any alcohol or drug abuse patient.[facility] HospitalIn the event this information is protected by the Federal Confidentiality of Alcohol and Drug Abuse Patient Records regulations: The Federal rules restrict any use of the information to criminally investigate or prosecute any alcohol or drug abuse patient.[facility] Reason for Visit (unrecogniz ed section and content) Reason Comments Follow Up Cognitive issues Reason Comments Results Reason Comments Follow Up Memory Loss Reason Comments Geriatric Assessment Back Pain Specialty Diagnoses / Procedures Referred By Jesus crystal Referred To Contact Gerontology Diagnoses Memory deficit Procedures CONSULT TO GERIATRICS OFFICE/OUTPATIENT NEW HIGH MDM 60-74 MINUTES Jacquelin Spaulding MD [address] [place] [address] Referral ID Status Reason Start Date Expiration Date Visits Requested Visits Authorized [id number] Pending Review PCP Requested Referral 02/27/2022 02/27/2023 [...] Comments Population Health Navigation Outreach 10/25/2023 Gerardo [facility], HCC gap closure - [facility] Reason Comments 6 Month Exam Reason Onset Date Comments Population Health Navigation Outreach 01/17/2024 [facility] Reason Onset Date Comments Refill Request [...] Care Teams (unrecognized sec tion and content) Graphic Coordinator Relationship Specialty Start Date End Date Jacquelin Spaulding MD [address] [place] [address] PCP - General Family Practice 10/12/17 Graphic Coordinator Relationship Specialty Start Date End Date Jacquelin Spaulding MD [address] [place] [address] PCP - General Family Medicine 10/12/17 Graphic Coordinator Relationship Specialty Start Date End Date Jacquelin Spaulding MD [address] [place] [address] PCP - General Family Medicine 10/12/17 Graphic Coordinator Relationship Specialty Start Date End Date Jacquelin Spaulding MD [address] [facility] [place] [address] PCP - General Family Medicine 10/12/17 Graphic Coordinator Relationship Specialty Start Date End Date Jacquelin Spaulding MD [address] [facility] [place] [address] PCP - General Family Medicine 10/12/17 Graphic Coordinator Relationship Specialty Start Date End Date Jacquelin Spaulding MD [address] [facility] [place] [address] PCP - General Family Medicine 10/12/17 Graphic Coordinator Relationship Specialty Start Date End Date Jacquelin Spaulding MD [address] [facility] [place] [address] PCP - General Family Medicine 10/12/17 Graphic Coordinator Relationship Specialty Start Date End Date Jacquelin Spaulding MD [address] [facility] [place] [address] PCP - General Family Medicine 10/12/17 Graphic Coordinator Relationship Specialty Start Date End Date Jacquelin Spaulding MD [address] [facility] [place] [address] PCP - General Family Medicine 10/12/17 Graphic Coordinator Relationship Specialty Start Date End Date Jacquelin Spaulding MD [address] [facility] [place] [address] PCP - General Family Medicine 10/12/17 Team Status: Active Member Role Status Dates Dr. Jacquelin Spaulding MD Family Provider Active Dr. Jacquelin Spaulding MD Primary Care Provider Active Team Status: Inactive Member Role Status Dates Dr. Jacquelin Spaulding MD Primary Care Provider Active Dr. Jonathan Bedoya DO Emergency Provider Active Graphic Coordinator Relationship Specialty Start Date End Date Jacquelin Spaulding MD [address] [facility] [place] [address] PCP - General Family Medicine 10/12/17 Graphic Coordinator Relationship Specialty Start Date End Date Jacquelin Spaulding MD [address] [facility] [place] [address] PCP - General Family Medicine 10/12/17 Graphic Coordinator Relationship Specialty Start Date End Date Jacquelin Spaulding MD [address] [facility] [place] [address] PCP - General Family Medicine 10/12/17 Graphic Coordinator Relationship Specialty Start Date End Date Jacquelin Spaulding MD [address] [facility] [place] [address] PCP - General Family Medicine 10/12/17 Graphic Coordinator Relationship Specialty Start Date End Date Jacquelin Spaulding MD [address] [facility] [place] [address] PCP - General Family Medicine 10/12/17 Graphic Coordinator Relationship Specialty Start Date End Date Jacquelin Spaulding MD [address] [facility] [place] [address] PCP - General Family Medicine 10/12/17 Graphic Coordinator Relationship Specialty Start Date End Date Jacquelin Spaulding MD [address] [facility] [place] [address] PCP - General Family Medicine 10/12/17 Graphic Coordinator Relationship Specialty Start Date End Date Jacquelin Spaulding MD [address] [facility] [place] [address] PCP - General Family Medicine 10/12/17 Graphic Coordinator Relationship Specialty Start Date End Date Jacquelin Spaulding MD [address] [facility] [place] [address] PCP - General Family Medicine 10/12/17 Marion Blair APRN.EMBALMER APPRENTICE [address] [facility] [place] [address] Statistics Professor Family Medicine 06/04/24 Pedro Munoz APRN.EMBALMER APPRENTICE [address] [facility] [place] [address] Statistics Professor Family Medicine 06/13/24 Graphic Coordinator Relationship Specialty Start Date End Date Jacquelin Spaulding MD [address] [facility] [place] [address] PCP - General Family Medicine 10/12/17 Marion Blair APRN.EMBALMER APPRENTICE [address] [facility] [place] [address] Statistics Professor Family Medicine 06/04/24 Pedro Munoz APRN.EMBALMER APPRENTICE [address] [facility] [place] [address] Statistics Professor Family Medicine 06/13/24 Graphic Coordinator Relationship Specialty Start Date End Date Jacquelin Spaulding MD [address] [facility] [place] [address] PCP - General Family Medicine 10/12/17 Marion Blair APRN.EMBALMER APPRENTICE [address] [facility] [place] [address] Statistics Professor Family Medicine 06/04/24 Pedro Munoz APRN.EMBALMER APPRENTICE [address] [place] [address] Statistics Professor Family Medicine 06/13/24 Graphic Coordinator Relationship Specialty Start Date End Date Jacquelin Spaulding MD [address] [place] [address] PCP - General Family Medicine 10/12/17 Marion Blair APRN.EMBALMER APPRENTICE [address] [place] [address] Statistics Professor Family Medicine 06/04/24 Pedro Munoz APRN.EMBALMER APPRENTICE [address] [place] [address] Statistics Professor Family Medicine 06/13/24 Graphic Coordinator Relationship Specialty Start Date End Date Jacquelin Spaulding MD [address] [place] [address] PCP - General Family Medicine 10/12/17 Marion Blair APRN.EMBALMER APPRENTICE [address] [place] [address] Statistics Professor Family Medicine 06/04/24 Pedro Munoz APRN.EMBALMER APPRENTICE [address] [place] [address] Statistics Professor Family Medicine 06/13/24 Graphic Coordinator Relationship Specialty Start Date End Date Jacquelin Spaulding MD [address] [place] [address] PCP - General Family Medicine 10/12/17 Marion Blair APRN.EMBALMER APPRENTICE [address] [place] [address] Statistics Professor Family Medicine 06/04/24 Pedro Munoz APRN.EMBALMER APPRENTICE [address] [place] [address] Statistics Professor Family [facility] 06/13/24 Graphic Coordinator Relationship Specialty Start Date End Date Jacquelin Spaulding MD [address] [place] [address] PCP - General Family Medicine 10/12/17 Pedro Munoz APRN.EMBALMER APPRENTICE [address] [place] [address] Statistics Professor [facility] 06/13/24 Team Status: Active Member Role/Relationship Status Dates Dr. Jacquelin Spaulding MD Primary Care Provider Active Team Status: Active Member Role/Relationship Status Dates Dr. Jacquelin Spaulding MD Primary Care Provider Active Start: January 07, 2025 Dr. Taz Jenkins DO Emergency Provider Active S tart: January 07, 2025 Dr. Satinder Branch MD Attending Provider Active Start: January 07, 2025 Team Status: Active Member Role/Relationship Status Dates Dr. Jacquelin Spaulding MD Primary Care Provider Active Start: January 07, 2025 Dr. Taz Jenkins DO Emergency Provider Active S tart: January 07, 2025 Dr. Satinder Branch MD Attending Provider Active Start: January 07, 2025 Dr. Satinder Branch MD Other Provider Active Start: January 07, 2025 Team Status: Inactive Member Role/Relationship Status Dates Dr. Jacquelin Spaulding MD Primary Care Provider Active Start: January 07, 2025 End: January 07, 2025 Dr. Taz Jenkins DO Emergency Provider Active S tart: January 07, 2025 End: January 07, 2025 Dr. Satinder Branch MD Attending Provider Active Start: January 07, 2025 End: January 07, 2025 Team Status: Active Member Role/Relationship Status Dates Dr. Jacquelin Spaulding MD Primary Care Provider Active Start: January 08, 2025 Dr. Clark Sosa DO Referring Provider Active Start: January 08, 2025 Dr. Clark Sosa DO Emergency Provider Active Start: January 08, 2025 Dr. Jasbir Rivera MD Admit Provider Active Sta rt: January 08, 2025 Dr. Jasbir Rivera MD Attending Provider Active Start: January 08, 2025 (unrecognized sect ion and content) No Status Records FoundNo Status Records FoundNo Status Records FoundNo Status Records Found INFORMATION SOURCE (unrecogn ized section and content) DATE CREATED AUTHOR 04/21/2022 [facility] DATE CREATED AUTHOR AUTHOR'S ORGANIZ ATION 07/17/2024 [facility] DATE CREATED AUTHOR AUTHOR'S ORGANIZ ATION 10/06/2024 [facility] DATE CREATED AUTHOR AUTHOR'S ORGANIZ ATION 11/10/2024 [facility] Goals (unrecognized section and content) Goals may be documented in a n alternate sectionGoals may be documented in an alternate sectionGoals may be documented in an alternate sectionGoals may be documented in an alternate section FOR RECORDS PERTAINING TO PATIENTS [...] BE BASED ON THE PRIMARY CLINICAL RECORDS. [employer] provides no warranty or guarantee of the accuracy or completeness of information in this document.
[2025-01-09] VITALS (9 sets, daily range): BP systolic 131–137; BP diastolic 69–80; PULSE 75–110; RESP 16–20; TEMP 36.7–36.8; O2SAT 92–95
[2025-01-09] MEDS: Ampicillin/Sulbactam 3 GM in 0.9% Normal Saline (100mL MB+) 100 ML IV ×4 (00:47→17:23)
[2025-01-09 07:38] LABS: Anion Gap 11 (5-15); BUN 13 mg/dL (4-19); BUN/Creat Ratio 14.3 RATIO (10-20); Calcium,Total 8.7 mg/dL (7.6-11.0); Carbon Dioxide 21.5 mmol/L (21.0-32.0); Chloride 105 mmol/L (98-108); Estimated Creatinine Clearance 56.14 ml/min (50-250); Glucose 167 mg/dL (70-99); Potassium 4.0 mmol/L (3.3-5.1)
--- NOTE | 2025-01-09 08:15 | PN.HOSP_ITS ---
Reason for Visit Chief Complaint: Fever, shortness of breath since noon/afternoon today Subjective Subjective Breathing is "exceptional". While on nasal canula. Objective Data Objective Data Vital Signs: Vital Signs Temp Pulse Resp BP Pulse Ox O2 Del Method O2 Flow Rate 36.8 C 75 18 136/80 H 93 Nasal Cannula 2 01/09/25 03:00 01/09/25 06:33 01/09/25 06:33 01/09/25 03:00 01/09/25 06:33 01/09/25 06:33 01/09/25 06:33 Oxygen Flow Rate (L/min) 2 Oxygen Delivery Method Nasal Cannula Weight: 77 kg Body Mass Index (BMI) 27.3 Intake & Output: Intake and Output for Last 24 Hours 01/07/25 01/08/25 01/09/25 23:59 23:59 23:59 Intake Total 355 / 355 100 / 100 Output Total 400 / 400 Balance 355 / 355 -300 / -300 Lab / Micro Data 01/08/25 16:52 01/09/25 06:19 Labs: Laboratory Results - last 24 hr 01/08/25 16:52: WBC 17.8 H, RBC 4.70, Hgb 15.0, Hct 43.1, MCV 91.7, MCH 31.9, MCHC 34.8, RDW Std Deviation 42.6, RDW Coeff of Radha 12.7, Plt Count 206, MPV 11.2, Immature Gran % (Auto) 0.600, Neut % (Auto) 84.2 H, Lymph % (Auto) 9.7 L, [place] % (Auto) 5.2, Eos % (Auto) 0.1, Baso % (Auto) 0.2, Absolute Neuts (auto) 15.0 H, Absolute Lymphs (auto) 1.73, Nucleated RBC % 0, Sodium 139, Potassium 4.3, Chloride 105, Carbon Dioxide 22.1, Anion Gap 12, BUN 14, Creatinine 1.09, E stim Creat Clear Calc 49.00 L, Est GFR (MDRD) Non-Af 67, BUN/Creatinine Ratio 12.9, Glucose 122 H, Calcium 9.1, Magnesium 2.0 01/09/25 06:19: Sodium 138, Potassium 4.0, Chloride 105, Carbon Dioxide 21.5, Anion Gap 11, BUN 13, Creatinine 0.94, Estim Creat Clear Calc 56.14, Est GFR (MDRD) Non-Af 80, BUN/Creatinine Ratio 14.3, Glucose 167 H, Calcium 8.7 Micro: Microbiology 01/09/25 06:05 Urine, Clean Catch Legionella Antigen - Final 01/09/25 06:05 Urine, Clean Catch Streptococcus pneumoniae Antigen (M - Final 01/08/25 23:30 Nasal Secretion MRSA (PCR) - Final 01/08/25 21:05 Mucosa - Nasopharyngeal Respiratory Panel (PCR) - Preliminary 01/08/25 21:05 Mucosa - Nasopharyngeal SARS-CoV-2, Influenza & RSV (PCR) - Final Radiography Diagnostic Testing: Radiology Impression Chest X-Ray 01/08/25 17:20 IMPRESSION: Chest x-ray findings demonstrate mild pulmonary edema which may be related to CHF or fluid overload. The prominent interstitial markings in the lungs most likely represent pulmonary edema and/or pneumonic infiltrates. Small left pleural effusion with adjacent compressive atelectasis of the lung base. Diffuse osteopenia of the bony thorax with mild degenerative changes of the thoracic spine. Reading Location: [facility] Physical Exam Const alert and no apparent distress Constitutional Narrative: Slightly confused HEENT head/scalp atraumatic and moist oral mucous membranes Resp normal respiratory effort and no retractions Resp Narrative: Coarse breath sounds bilaterally Cardio regular rate, regular rhythm, S1 normal heart sound and S2 normal heart sound GI normal to inspection, nondistended, normoactive bowel sounds, soft to palpation, non-tender and non-distended Extremity normal to inspection and full ROM Neuro Sensorium / Orientation: awake and alert Assessment & Plan Assessment/Plan (1) Acute hypoxic respiratory failure: PLAN: Secondary to aspiration. But also concerning for CHF exacerbation. Chest x-ray shows pulmonary vascular congestion as well as pleural effusions. Oxygenation has improved overall. Continue to wean oxygen as tolerated. (2) Aspiration pneumonia: PLAN: On ampicillin-sulbactam. Pulmonary toilet Bronchodilators (3) Esophageal obstruction due to food impaction: PLAN: Removed on the by Dr. Branch Speech therapy consult. Plan for modified barium swallow on the . Discussed with the speech therapy and does not feel comfortable advancing to solids at this point in time given his recent aspiration events but will wait on the modified barium swallow. If there is showing obstruction or stricture then we will consult gastroenterology for inpatient evaluation. (4) Heart failure: PLAN: Acute HFpEF. Ordered an echo and it showed EF 60%. Shows mildly dilated RV with moderate RV systolic dysfunction. Chest x-ray appears to have more in the way of pulmonary vascular congestion. Will discontinue his oral furosemide and start him on IV furosemide. PLAN: Plan Dementia: Complicates care and recovery COPD: Patient really does not have much in way of wheezing but is on methylprednisolone VTE prophylaxis with enoxaparin Reviewing Dr. Branch's note from the .. There was a consultation with one of the daughters and Riya BHANDARI. Did discuss with social work to make them aware to see if any additional interventions would be necessary. Charges/Coding Visit Charges Inpatient E&M: 92135 Subs Hosp L2
--- NOTE | 2025-01-09 08:22 | ECHOD_ITS ---
Reason For Study Reason For Study: CHF Procedure This was a 2D Doppler, Color Flow transthoracic echocardiogram. Exam performed portable in patient room. Left Ventricle Normal size and thickness. The LV ejection fraction is 60 %. Normal diastology for age. Right Ventricle Mildly dilated right ventricular cavity with moderate RV systolic dysfunction. Atria The left atrium is mildly enlarged. Normal right atrium. Mitral Valve Mild (1+) mitral valve insufficiency. Tricuspid Valve Trivial tricuspid valve insufficiency. Right ventricular systolic pressure estimated to be 32 mmHg. Aortic Valve Aortic sclerosis, no stenosis. Pulmonic Valve The pulmonic valve is not well visualized. Great Vessels The aortic root is not well visualized. Pericardium/Pleural No pericardial effusion. MMode/2D Measurements & Calculations LVIDd: 4.3 cm IVSd: 0.99 cm Ao root diam: 3.3 cm LVIDs: 2.2 cm LVPWd: 0.99 cm RVDd: 4.8 cm FS: 48.7 % LAV(MOD-bp): 46.6 ml LVAd ap4: 27.5 cm2 SV(MOD-sp4): 43.4 ml LAV(MOD-bp) Indexed: 24.7 ml/m2 LVLd ap4: 8.4 cm SI(MOD-sp4): 23.0 ml/m2 LAV(MOD-sp2): 45.7 ml EDV(MOD-sp4): 74.0 ml LAV(MOD-sp4): 39.6 ml EDV(sp4-el): 76.1 ml LVAs ap4: 16.0 cm2 LVLs ap4: 7.0 cm ESV(MOD-sp4): 30.6 ml ESV(sp4-el): 31.1 ml EF(MOD-sp4): 58.6 % EF(sp4-el): 59.2 % SV(sp4-el): 45.0 ml LA A4 area: 17.9 cm2 LA dimension(2D): 4.1 cm RA A4 area: 13.3 cm2 TAPSE: 2.6 cm Time Measurements MV dec time: 0.27 sec Doppler Measurements & Calculations MV E max jairo: 64.8 cm/sec Lat Peak E' Jairo: 8.1 cm/sec Med Peak E' Jairo: 7.2 cm/sec MV A max jairo: 86.7 cm/sec E/E' lat: 8.0 E/E' med: 9.0 MV E/A: 0.75 Ao V2 max: 171.1 cm/sec LV V1 max: 119.2 cm/sec MV dec slope: 239.5 cm/sec2 Ao max P.7 mmHg LV V1 max P.7 mmHg Ao V2 mean: 117.7 cm/sec Ao mean P.3 mmHg Ao V2 VTI: 35.8 cm PA V2 max: 87.3 cm/sec TR max jairo: 260.1 cm/sec TR max P.1 mmHg ECHO/Echo Complete Interpretation Summary The LV ejection fraction is 60 %. Mildly dilated right ventricular cavity with moderate RV systolic dysfunction. The left atrium is mildly enlarged. Mild (1+) mitral valve insufficiency. Aortic sclerosis, no stenosis. Ordering Physician: Clark Valentine Referring Physician: Praneeth Spaulding Performed By: Heavenly Robertson RDCS, RVT
[2025-01-09] MEDS: Memantine Hydrochloride 5 MG Tablet PO ×2 (10:05→22:05)
[2025-01-09] MEDS: guaiFENesin 10 ML UDC (200MG/10ML) PO ×4 (10:10→22:04)
[2025-01-09] MEDS: 0.9% Normal Saline (250mL Bag) 250 ML 15 ML IV (11:39)
--- NOTE | 2025-01-09 11:40 | CHAPLAIN ---
Type of Pastoral Visit _x__ Initial Visit ___ Follow-up Visit ___ On-call Visit ___ General Patient Visit ___ Spiritual Assessment ___ Family Conference ___ Bereavement ___ Rapid Response ___ Code Blue ___ Other (describe below) Pastoral Care Referral From _x__ Patient ___ Family ___ Nurse ___ Physician ___ Health And Safety Advisor ___ Lithographic Plate Maker ___ Other (describe below) Sacrament/Intervention _x__ Active listening ___ Anointing ___ Caodaism ___ Bereavement ___ Communion ___ Loly exploration ___ ___ Life review ___ Prayer ___ Reconciliation ___ Sacrament of Sick _x__ Supportive presence ___ Wedding ___ Other (describe below) Pastoral Comments patient is awake and sitting up in bed; pt is able to answer all questions asked of him but those answers are often just one word responses; pt is polite but does not engage with this critical care technician; pt denies any worries and declines having prayer or anything further done for him
[2025-01-09] MEDS: 0.9% Saline Lock 10 ML Syringe IV ×2 (13:38→17:24)
[2025-01-09 15:05] LABS: Hematocrit 39.8 % (40-54); Hemoglobin 13.8 g/dL (13.0-16.5); Immature Granulocytes Count 0.040 X10^3/uL (0.0-0.0); Mean Corp Hgb Conc 34.7 g/dL (32-36); Mean Corpuscular Volume 92.1 fL (80-94); Mean Platelet Vol. 11.3 fl (6.2-12.0); NRBC Flagged by Analyzer 0 % (0-5); POSITIVE DIFFERENTIAL YES; Platelet Count 169 K/mm3 (150-450); RBC Distribution Width CV 12.7 % (11.6-14.6); RBC Distribution Width SD 42.8 fl (35.1-43.9); Red Blood Count 4.32 M/mm3 (4.6-6.2); White Blood Count 11.2 K/mm3 (4.4-11.0)
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
[2025-01-10] VITALS (10 sets, daily range): BP systolic 119–137; BP diastolic 71–77; PULSE 68–95; RESP 15–20; TEMP 36.6–36.9; O2SAT 87–97
[2025-01-10] MEDS: Ampicillin/Sulbactam 3 GM in 0.9% Normal Saline (100mL MB+) 100 ML IV ×5 (00:57→23:59)
[2025-01-10] MEDS: guaiFENesin 10 ML UDC (200MG/10ML) PO ×2 (05:34→17:36)
[2025-01-10] MEDS: 0.9% Saline Lock 10 ML Syringe IV ×2 (05:36→22:22)
[2025-01-10 05:53] LABS: Hematocrit 39.7 % (40-54); Hemoglobin 13.9 g/dL (13.0-16.5); Immature Granulocytes Count 0.070 X10^3/uL (0.0-0.0); Mean Corp Hgb Conc 35.0 g/dL (32-36); Mean Corpuscular Volume 90.8 fL (80-94); Mean Platelet Vol. 10.9 fl (6.2-12.0); NRBC Flagged by Analyzer 0 % (0-5); Platelet Count 197 K/mm3 (150-450); RBC Distribution Width CV 12.6 % (11.6-14.6); RBC Distribution Width SD 42.1 fl (35.1-43.9); Red Blood Count 4.37 M/mm3 (4.6-6.2); White Blood Count 15.5 K/mm3 (4.4-11.0)
[2025-01-10 06:23] LABS: Anion Gap 11 (5-15); BUN 16 mg/dL (4-19); BUN/Creat Ratio 18.7 RATIO (10-20); Calcium,Total 9.1 mg/dL (7.6-11.0); Carbon Dioxide 23.8 mmol/L (21.0-32.0); Chloride 106 mmol/L (98-108); Estimated Creatinine Clearance 62.82 ml/min (50-250); Glucose 140 mg/dL (70-99); Potassium 3.8 mmol/L (3.3-5.1)
--- NOTE | 2025-01-10 08:41 | PCM.PN.HOSP ---
Reason for Visit Chief Complaint: Fever, shortness of breath since noon/afternoon today Subjective Subjective Feeling well. Objective Data Objective Data Vital Signs: Vital Signs Temp Pulse Resp BP Pulse Ox O2 Del Method O2 Flow Rate 36.6 C 69 20 H 137/77 H 93 Nasal Cannula 4 01/10/25 05:30 01/10/25 07:14 01/10/25 07:14 01/10/25 05:30 01/10/25 07:14 01/10/25 07:14 01/10/25 07:14 Oxygen Flow Rate (L/min) 4 Oxygen Delivery Method Nasal Cannula Weight: 77 kg Body Mass Index (BMI) 27.3 Intake & Output: Intake and Output for Last 24 Hours 01/08/25 01/09/25 01/10/25 23:59 23:59 23:59 Intake Total 355 / 355 1733.50 / 1733.50 200 / 200 Output Total 1600 / 1600 300 / 300 Balance 355 / 355 133.50 / 133.50 -100 / -100 Lab / Micro Data 01/10/25 05:42 01/10/25 05:42 Labs: Laboratory Results - last 24 hr 01/09/25 06:12: WBC 11.2 H, RBC 4.32 L, Hgb 13.8, Hct 39.8 L, MCV 92.1, MCH 31.9, MCHC 34.7, RDW Std Deviation 42.8, RDW Coeff of Radha 12.7, Plt Count 169, MPV 11.3, Immature Gran % (Auto) 0.400, Neut % (Auto) 93.2 H, Lymph % (Auto) 4.7 L, [place] % (Auto) 1.6, Eos % (Auto) 0.0, Baso % (Auto) 0.1, Absolute Neuts (auto) 10.4 H, Absolute Lymphs (auto) 0.53 L, Nucleated RBC % 0 01/10/25 05:42: WBC 15.5 H, RBC 4.37 L, Hgb 13.9, Hct 39.7 L, MCV 90.8, MCH 31.8, MCHC 35.0, RDW Std Deviation 42.1, RDW Coeff of Radha 12.6, Plt Count 197, MPV 10.9, Immature Gran % (Auto) 0.500, Neut % (Auto) 88.6 H, Lymph % (Auto) 6.7 L, [place] % (Auto) 4.1, Eos % (Auto) 0.0, Baso % (Auto) 0.1, Absolute Neuts (auto) 13.7 H, Absolute Lymphs (auto) 1.04, Nucleated RBC % 0, Sodium 141, Potassium 3.8, Chloride 106, Carbon Dioxide 23.8, Anion Gap 11, BUN 16, Creatinine 0.84, Estim Creat Clear Calc 62.82, Est GFR (MDRD) Non-Af 86, BUN/Creatinine Ratio 18.7, Glucose 140 H, Calcium 9.1 Micro: Microbiology 01/08/25 21:05 Mucosa - Nasopharyngeal Respiratory Panel (PCR) - Final 01/09/25 06:05 Sputum, Expectorated/Coughed Gram Stain - Final 01/09/25 06:05 Urine, Clean Catch Legionella Antigen - Final 01/09/25 06:05 Urine, Clean Catch Streptococcus pneumoniae Antigen (M - Final 01/08/25 23:30 Nasal Secretion MRSA (PCR) - Final 01/08/25 21:05 Mucosa - Nasopharyngeal SARS-CoV-2, Influenza & RSV (PCR) - Final Radiography Diagnostic Testing: Radiology Impression Echocardiogram 01/09/25 08:22 Interpretation Summary The LV ejection fraction is 60 %. Mildly dilated right ventricular cavity with moderate RV systolic dysfunction. The left atrium is mildly enlarged. Mild (1+) mitral valve insufficiency. Aortic sclerosis, no stenosis. Ordering Physician: Clark Valentine Referring Physician: Praneeth Spaulding Performed By: Heavenly Robertson, JOSELYN, RVT Physical Exam Const alert and no apparent distress HEENT head/scalp atraumatic and moist oral mucous membranes Resp normal respiratory effort and no retractions Cardio regular rate, regular rhythm, S1 normal heart sound and S2 normal heart sound GI normal to inspection, nondistended, normoactive bowel sounds, soft to palpation, non-tender and non-distended Extremity normal to inspection and full ROM Neuro Sensorium / Orientation: awake and alert Assessment & Plan Assessment/Plan (1) Acute hypoxic respiratory failure: PLAN: Secondary to aspiration. But also concerning for CHF exacerbation. Chest x-ray shows pulmonary vascular congestion as well as pleural effusions. Oxygenation has improved overall. Continue to wean oxygen as tolerated. (2) Aspiration pneumonia: PLAN: On ampicillin-sulbactam. Pulmonary toilet Bronchodilators (3) Esophageal obstruction due to food impaction: PLAN: Removed on the by Dr. Branch Speech therapy consult. Plan for modified barium swallow on the . Discussed with the speech therapy and does not feel comfortable advancing to solids at this point in time given his recent aspiration events but will wait on the modified barium swallow. If there is showing obstruction or stricture then we will consult gastroenterology for inpatient evaluation. (4) Heart failure: PLAN: Acute HFpEF. Ordered an echo and it showed EF 60%. Shows mildly dilated RV with moderate RV systolic dysfunction. Chest x-ray appears to have more in the way of pulmonary vascular congestion. Will discontinue his oral furosemide and start him on IV furosemide. PLAN: Plan Dementia: Complicates care and recovery COPD: Patient really does not have much in way of wheezing but is on methylprednisolone VTE prophylaxis with enoxaparin Discussed with the patient's daughter Salina at bedside. Spoke with Salina along with the charge nurse on the floor, Adrienne. She had concerns that the patient was on oxygen and that there was a needle in his bedside. There is certainly a syringe on his bedside table. The syringe was labeled as enoxaparin and was not put in the sharps container clearly. It had been used already. Explained this to Salina that this was enoxaparin and indication was for VTE prophylaxis. She was given the opportunity to read the label to verify that she declined. She seemed satisfied with the explanation. She expressed that patient has had no to large choking episodes this most recent requiring the endoscopy the other 1 he was able to have that resolved with out endoscopy. She states that she watches what he eats very carefully make sure that he does not take in large bites and this seems to help. Charges/Coding Visit Charges Inpatient E&M: 57497 Subs Hosp L2
[2025-01-10] MEDS: Memantine Hydrochloride 5 MG Tablet PO ×2 (09:34→22:22)
--- NOTE | 2025-01-10 11:05 | CASEMGMT ---
Social Work Pt's dgt Salina had requested to speak with the patient advocate. SUE reached out to Salina who was to be in pt's room at 1030 this morning. Salina agreeable to meet with SUE and Pt advocate at 10:45. SUE and Marion, patient advocate, met with Salina. RAMYA Manrique
--- NOTE | 2025-01-10 14:40 | ST.MBS ---
Modified Barium Swallow Patient Information Study Date: 01/10/25 Study Time: 13:00 Direct Billable Minutes: 120 Total Minutes procedure & reportin Diagnosis: PNA J69.0 Referring Physician: Clark Valentine Reason for Referral: Assess swallow function, assess risk for aspiration, and determine recommendations for least restrictive diet textures and compensatory strategies to improve safety of swallow. Medical History: Pt presented to the [facility] ED 01/08/2025 unable to swallow/impacted food bolus after he was trying to eat turkey burger. Dr. Branch removed it from the lower third of his esophagus during the EGD. Pt febrile at home w/ cough and SOB. In ED, he required 4 to 5 L of oxygen though is not on oxygen at home. Hx of smoking, but quit many years ago. Mild COPD per daughter's report. Chest x-ray neurology reviewed and shows right middle lobe/lower lobe infiltrate. Patient is admitted for further concern of aspiration pneumonia. ST consulted due to swallowing difficulty. IMPORT/EXPORT SPECIALIST recommended full liquid diet from BSE and recommended MBSS (to include esophageal screens) prior to further diet advancement. PMH: Right inguinal hernia, History of inguinal hernia, Abdominal pain, COPD, Pulmonary fibrosis. Current Diet Ordered: Full liquids Mental Status: Impaired (Poor ability for command following) Respiratory Status: Oxygenating on Room Air Penetration-Aspiration Scale Penetration-Aspiration Scale: OBJECTIVE ASSESSMENT OF SWALLOW FUNCTION (QUANTITATIVE – PER TRIAL): PENETRATION / ASPIRATION SCALE (SPARROW): 1 = does not enter airway 2 = enters airway/above vocal folds/ejected 3 = enters airway/above vocal folds/not ejected 4 = enters airway/contacts vocal folds/ejected 5 = enters airway/contacts vocal folds/not ejected 6 = enters airway/below vocal folds/ejected 7 = enters airway/below vocal folds/not ejected despite effort 8 = enters airway/below vocal folds/no effort VIDEOFLOROSCOPIC SCALE SCORE (SPARROW): Grade I = aspiration of material that has penetrated into the laryngeal vestibule, intact cough reflex Grade II = aspiration < 10 % of the bolus, intact cough reflex Grade III = aspiration of < 10 % of the bolus, reduced cough reflex or aspiration of > 10 % of the bolus, intact cough reflex Grade IV = aspiration of > 10 % of the bolus, reduced cough reflex Penetration-Aspiration Scale Score Thin Liquid via teaspoon: Result: 1= does not enter airway Thin Liquid via teaspoon Trial 2: Result: 1= does not enter airway Thin Liquid via small single sip: cup: Result: 1= does not enter airway Thin Liquid via sequential sips: cup: Result: 1= does not enter airway Comment: Esophageal screen - Mild retention in the lower esophagus w/ retrograde flow to the middle esophagus. Pudding via teaspoon: Result: 1= does not enter airway Comment: Esophageal screen - Minimal retention of pudding in the lower esophagus. 1/2 Cookie: Result: 1= does not enter airway Comment: Esophageal screen - Complete clearance. 1/2 Cookie Trial 2: Result: 1= does not enter airway Comment: Esophageal screen - Complete clearance. Oral Phase Labial Seal: Interlabial escape, no progression to anterior lip Tongue Control During Bolus Hold: Posterior escape of greater than half of bolus Bolus Preparation/Mastication: Disorganized chewing/mashing with solid pieces of bolus unchewed Bolus Transport/Lingual Motion: Repetitive/disorganized tongue motion Oral Residue: Residue collection on oral structures Pharyngeal Phase Initiation of Pharyngeal Swallow: Bolus head in pyriforms Soft Palate Elevation: Trace column of contrast/air between soft palate and pharyngeal wall Laryngeal Elevation: Comp. Superior move thyroid cart w/comp. apprx arytenoid cart-epig pet Anterior Hyoid Excursion: Partial anterior movement Epiglottic Movement: Complete inversion Laryngeal Vestibule Closure at Height of Swallow: Complete; no air/contrast in laryngeal vestibule Pharyngeal Stripping Wave: Present - complete Pharyngoesophageal Segment Opening: Complete distension and complete duration; no obstruction of flow Tongue Base Retraction: Narrow column of contrast between tongue base & post. pharyngeal wall Pharyngeal Residue: Collection of residue within or on pharyngeal structures Esophageal Phase Esophageal Clearance: Esophageal retention w/ retrograde flow below pharyngoesophageal seg. (minimal/mild esophageal retention) Diagnosis/Impression Diagnosis: Mild-moderate oropharyngeal phase dysphagia R13.11 Impression: The oral phase is primarily marked by... -Poor bolus control w/ posterior loss of >1/2 of certain thin liquid trials to the pharynx, as well as >1/2 of the cookie trial to the posterior surface of the epiglottis and pyriforms prior to swallow onset. -Disorganized tongue motion for A-P transport. -Very prolonged mastication of cookie w/ small pieces appearing un-chewed in first trial of cookie. The pharyngeal phase is primarily marked by... -Delayed swallow onset. -Mild impairment in TB retraction and pharyngeal stripping wave w/ trace-mild pharyngeal residue after the swallow. -No laryngeal penetration or aspiration. The esophageal phase is primarily marked by... -Small CP bar at the level of C5; however, this did not appear to impact bolus clearance through the LES. 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 Recommendations Diet: Minced and Moist Textures and Thin Liquids Comment: Will recommend IMPORT/EXPORT SPECIALIST complete trials of soft and bite size (IDDSI Level 6) and easy to chew (IDDSI Level 7) foods w/ pt in upcoming sessions to consider further diet advancement as tolerated. Compensatory Strategies: Small Bites, Small Sips, Slow Rate, Alternate bites/solids and sips/liquids and Sitting upright (During and 30-60 min after meal) Supervision: Distant Supervision Recommend Repeat Modified Barium Swallow: No Need for Skilled Speech Therapy Services: Yes Comment: -Train the patient and family in use of strategies to decrease risk for choking aspiration. -Ongoing assessment of diet tolerance of recommended textures. Will recommend IMPORT/EXPORT SPECIALIST complete trials of soft and bite size (IDDSI Level 6) and easy to chew (IDDSI Level 7) foods w/ pt in upcoming sessions to consider further diet advancement as tolerated. -Poor command following during acute stay; however, would attempt instruction in exercises to improve lingual coordination, bolus control, as well as mild deficits in TB retraction and stripping wave (lingual resistance, lingual coordination, effortful). Recommended Referrals: GI Consult (outpatient) Education Completed: 1. Described result of evaluation. and 2. Pt understands evaluation & agrees with goals and treatment plan. Status Active ST Patient: Active Contact Information [facility] Speech Therapy:: Alexandria Guzman M.A. [facility]-IMPORT/EXPORT SPECIALIST Speech-Language Pathologist [facility] [address] [place] [address] [phone]
[2025-01-11] VITALS (7 sets, daily range): BP systolic 119–160; BP diastolic 60–73; PULSE 64–94; RESP 16–18; TEMP 36.2–36.7; O2SAT 89–97
[2025-01-11] MEDS: Ampicillin/Sulbactam 3 GM in 0.9% Normal Saline (100mL MB+) 100 ML IV ×4 (05:31→23:36)
--- NOTE | 2025-01-11 07:38 | PCM.PN.HOSP ---
Reason for Visit Chief Complaint: Fever, shortness of breath since noon/afternoon today Subjective Subjective Feeling well. Objective Data Objective Data Vital Signs: Vital Signs Temp Pulse Resp BP Pulse Ox O2 Del Method O2 Flow Rate 36.7 C 69 18 160/70 H 96 Room Air 3 01/11/25 05:28 01/11/25 07:12 01/11/25 07:12 01/11/25 05:28 01/11/25 05:28 01/11/25 07:12 01/11/25 07:12 Oxygen Flow Rate (L/min) 3 Oxygen Delivery Method Room Air Weight: 77 kg Body Mass Index (BMI) 27.3 Intake & Output: Intake and Output for Last 24 Hours 01/09/25 01/10/25 01/11/25 23:59 23:59 23:59 Intake Total 1733.50 / 1733.50 400 / 400 216.5 / 216.5 Output Total 1600 / 1600 300 / 300 Balance 133.50 / 133.50 100 / 100 216.5 / 216.5 Lab / Micro Data 01/11/25 10:08 01/11/25 10:08 Micro: Microbiology 01/08/25 21:05 Mucosa - Nasopharyngeal Respiratory Panel (PCR) - Final 01/09/25 06:05 Sputum, Expectorated/Coughed Gram Stain - Final 01/09/25 06:05 Urine, Clean Catch Legionella Antigen - Final 01/09/25 06:05 Urine, Clean Catch Streptococcus pneumoniae Antigen (M - Final 01/08/25 23:30 Nasal Secretion MRSA (PCR) - Final 01/08/25 21:05 Mucosa - Nasopharyngeal SARS-CoV-2, Influenza & RSV (PCR) - Final Physical Exam Const alert and no apparent distress HEENT head/scalp atraumatic and moist oral mucous membranes Resp normal respiratory effort, no retractions, no use of accessory muscles and clear to auscultation bilaterally Cardio regular rate, regular rhythm and S1 normal heart sound GI normal to inspection, nondistended, normoactive bowel sounds, soft to palpation, non-tender and non-distended Extremity Extremity Narrative: trace LE edema. Assessment & Plan Assessment/Plan (1) Acute hypoxic respiratory failure: PLAN: Secondary to aspiration. But also concerning for CHF exacerbation. Chest x-ray shows pulmonary vascular congestion as well as pleural effusions. Oxygenation has improved overall. Continue to wean oxygen as tolerated. (2) Aspiration pneumonia: PLAN: On ampicillin-sulbactam. Pulmonary toilet Bronchodilators (3) Esophageal obstruction due to food impaction: PLAN: Removed on the by Dr. Branch MBSS performed on 01/10: With diagnosis of mild to moderate oropharyngeal phase dysphagia. Noted by poor bolus control with posterior loss disorganized tongue motion and prolonged mastication. Recommendation is for minced and moist textures and thin liquids. Recommendation is for outpatient GI referral. Patient to continue with soft bite sized food that is easy to chew. (4) Heart failure: PLAN: Acute HFpEF. Ordered an echo and it showed EF 60%. Shows mildly dilated RV with moderate RV systolic dysfunction. Chest x-ray appears to have more in the way of pulmonary vascular congestion. Creatinine is trending up so we will change the furosemide back to oral but will have it at 40 mg twice daily. PLAN: Plan Dementia: Complicates care and recovery COPD: Patient really does not have much in way of wheezing but is on methylprednisolone VTE prophylaxis with enoxaparin Charges/Coding Visit Charges Inpatient E&M: 33734 Subs Hosp L2
[2025-01-11] MEDS: Memantine Hydrochloride 5 MG Tablet PO ×2 (09:50→21:41)
[2025-01-11] MEDS: 0.9% Saline Lock 10 ML Syringe IV ×3 (09:50→18:29)
[2025-01-11 10:22] LABS: Hematocrit 46.2 % (40-54); Hemoglobin 16.0 g/dL (13.0-16.5); Immature Granulocytes Count 0.030 X10^3/uL (0.0-0.0); Mean Corp Hgb Conc 34.6 g/dL (32-36); Mean Corpuscular Volume 92.4 fL (80-94); Mean Platelet Vol. 10.6 fl (6.2-12.0); NRBC Flagged by Analyzer 0 % (0-5); Platelet Count 247 K/mm3 (150-450); RBC Distribution Width CV 12.9 % (11.6-14.6); RBC Distribution Width SD 44.0 fl (35.1-43.9); Red Blood Count 5.00 M/mm3 (4.6-6.2); White Blood Count 9.2 K/mm3 (4.4-11.0)
[2025-01-11 11:29] LABS: Anion Gap 15 (5-15); BUN 17 mg/dL (4-19); BUN/Creat Ratio 16.2 RATIO (10-20); Calcium,Total 9.4 mg/dL (7.6-11.0); Carbon Dioxide 25.2 mmol/L (21.0-32.0); Chloride 103 mmol/L (98-108); Estimated Creatinine Clearance 51.23 ml/min (50-250); Glucose 139 mg/dL (70-99); Potassium 3.6 mmol/L (3.3-5.1)
[2025-01-11] MEDS: guaiFENesin 10 ML UDC (200MG/10ML) PO (18:57)
[2025-01-12 03:29] VITALS: BP 138/61; PULSE 84; RESP 18; TEMP 35.8; O2SAT 98
[2025-01-12] MEDS: Ampicillin/Sulbactam 3 GM in 0.9% Normal Saline (100mL MB+) 100 ML IV ×2 (05:45→11:43)
[2025-01-12 06:51] LABS: Hematocrit 38.8 % (40-54); Hemoglobin 13.5 g/dL (13.0-16.5); Immature Granulocytes Count 0.050 X10^3/uL (0.0-0.0); Mean Corp Hgb Conc 34.8 g/dL (32-36); Mean Corpuscular Volume 92.2 fL (80-94); Mean Platelet Vol. 10.8 fl (6.2-12.0); NRBC Flagged by Analyzer 0 % (0-5); Platelet Count 199 K/mm3 (150-450); RBC Distribution Width CV 12.8 % (11.6-14.6); RBC Distribution Width SD 43.2 fl (35.1-43.9); Red Blood Count 4.21 M/mm3 (4.6-6.2); White Blood Count 7.0 K/mm3 (4.4-11.0)
--- NOTE | 2025-01-12 07:04 | PN.HOSP_ITS ---
Reason for Visit Chief Complaint: Fever, shortness of breath since noon/afternoon today Objective Data Objective Data Vital Signs: Vital Signs Temp Pulse Resp BP Pulse Ox O2 Del Method O2 Flow Rate 96.4 F L 84 18 138/61 H 98 Nasal Cannula 2 01/12/25 03:29 01/12/25 03:29 01/12/25 03:29 01/12/25 03:29 01/12/25 03:29 01/12/25 05:14 01/12/25 05:14 Oxygen Flow Rate (L/min) 2 Oxygen Delivery Method Nasal Cannula Weight: 169 lb 12.095 oz Body Mass Index (BMI) 27.3 Intake & Output: Intake and Output for Last 24 Hours 01/10/25 01/11/25 01/12/25 23:59 23:59 23:59 Intake Total 400 / 400 1026.0 / 1026.0 200 / 200 Output Total 300 / 300 Balance 100 / 100 1026.0 / 1026.0 200 / 200 Lab / Micro Data 01/12/25 06:07 01/11/25 10:08 Labs: Laboratory Results - last 24 hr 01/11/25 10:08: WBC 9.2, RBC 5.00, Hgb 16.0, Hct 46.2, MCV 92.4, MCH 32.0, MCHC 34.6, RDW Std Deviation 44.0 H, RDW Coeff of Radha 12.9, Plt Count 247, MPV 10.6, Immature Gran % (Auto) 0.300, Neut % (Auto) 72.7 H, Lymph % (Auto) 21.2, Alpine % (Auto) 4.7, Eos % (Auto) 0.8, Baso % (Auto) 0.3, Absolute Neuts (auto) 6.7, Absolute Lymphs (auto) 1.94, Nucleated RBC % 0, Sodium 143, Potassium 3.6, Chloride 103, Carbon Dioxide 25.2, Anion Gap 15, BUN 17, Creatinine 1.03, Estim Creat Clear Calc 51.23, Est GFR (MDRD) Non-Af 71, BUN/Creatinine Ratio 16.2, G lucose 139 H, Calcium 9.4 01/12/25 06:07: WBC 7.0, RBC 4.21 L, Hgb 13.5, Hct 38.8 L, MCV 92.2, MCH 32.1 H, MCHC 34.8, RDW Std Deviation 43.2, RDW Coeff of Radha 12.8, Plt Count 199, MPV 10.8, Immature Gran % (Auto) 0.700, Neut % (Auto) 62.1, Lymph % (Auto) 28.6, Alpine % (Auto) 6.7, Eos % (Auto) 1.6, Baso % (Auto) 0.3, Absolute Neuts (auto) 4.3, Absolute Lymphs (auto) 2.00, Nucleated RBC % 0 Micro: Microbiology 01/08/25 18:39 Blood Culture (Wb) - Left Forearm Blood Culture - Preliminary No growth in 48 hours. 01/08/25 18:39 Blood Culture (Wb) - Right Forearm Blood Culture - Preliminary No growth in 48 hours. 01/09/25 06:05 Sputum, Expectorated/Coughed Gram Stain - Final 01/09/25 06:05 Sputum, Expectorated/Coughed Respiratory Culture - Final Mixed normal respiratory lisa. No Streptococcus pneumoniae, beta-hemolytic Streptococcus or Staphylococcus aureus isolated. 01/08/25 21:05 Mucosa - Nasopharyngeal Respiratory Panel (PCR) - Final 01/09/25 06:05 Urine, Clean Catch Legionella Antigen - Final 01/09/25 06:05 Urine, Clean Catch Streptococcus pneumoniae Antigen (M - Final 01/08/25 23:30 Nasal Secretion MRSA (PCR) - Final 01/08/25 21:05 Mucosa - Nasopharyngeal SARS-CoV-2, Influenza & RSV (PCR) - Final Assessment & Plan Assessment/Plan (1) Acute hypoxic respiratory failure: PLAN: Secondary to aspiration. But also concerning for CHF exacerbation. Chest x-ray shows pulmonary vascular congestion as well as pleural effusions. Oxygenation has improved overall. Continue to wean oxygen as tolerated. (2) Aspiration pneumonia: PLAN: On ampicillin-sulbactam. Pulmonary toilet Bronchodilators (3) Esophageal obstruction due to food impaction: PLAN: Removed on the by Dr. Sarina ENGLISH performed on 01/10: With diagnosis of mild to moderate oropharyngeal phase dysphagia. Noted by poor bolus control with posterior loss disorganized tongue motion and prolonged mastication. Recommendation is for minced and moist textures and thin liquids. Recommendation is for outpatient GI referral. Patient to continue with soft bite sized food that is easy to chew. (4) Heart failure: PLAN: Acute HFpEF. Ordered an echo and it showed EF 60%. Shows mildly dilated RV with moderate RV systolic dysfunction. Chest x-ray appears to have more in the way of pulmonary vascular congestion. Creatinine is trending up so we will change the furosemide back to oral but will have it at 40 mg twice daily. PLAN: Plan Dementia: Complicates care and recovery COPD: Patient really does not have much in way of wheezing but is on methylprednisolone VTE prophylaxis with enoxaparin
[2025-01-12 07:07] VITALS: O2SAT 88
[2025-01-12 07:17] LABS: Anion Gap 10 (5-15); BUN 17 mg/dL (4-19); BUN/Creat Ratio 18.4 RATIO (10-20); Calcium,Total 8.8 mg/dL (7.6-11.0); Carbon Dioxide 26.6 mmol/L (21.0-32.0); Chloride 106 mmol/L (98-108); Estimated Creatinine Clearance 58.63 ml/min (50-250); Glucose 92 mg/dL (70-99); Potassium 3.6 mmol/L (3.3-5.1)
[2025-01-12 07:42] VITALS: O2SAT 93
[2025-01-12 08:53] VITALS: O2SAT 88; O2SAT 93; O2SAT 94
[2025-01-12 08:54] VITALS: BP 137/75; PULSE 69; RESP 18; TEMP 36.3; O2SAT 94
[2025-01-12] MEDS: Memantine Hydrochloride 5 MG Tablet PO (08:56)
[2025-01-12] MEDS: guaiFENesin 10 ML UDC (200MG/10ML) PO (08:56)
--- NOTE | 2025-01-12 10:23 | DS.PCM_ITS ---
Providers Date of Admission: 01/08/25 Primary Care Physician: Dr. Praneeth Spaulding MD Reason For Visit: PNEUMONIA, ASPIRATION, HYPOXIA Diagnosis Discharge Diagnosis (1) Acute hypoxic respiratory failure: Status: Acute Code(s): J96.01 - Acute respiratory failure with hypoxia Plan: Secondary to aspiration. But also concerning for CHF exacerbation. Chest x-ray shows pulmonary vascular congestion as well as pleural effusions. Oxygenation has improved overall. Continue to wean oxygen as tolerated. (2) Aspiration pneumonia: Status: Acute Code(s): J69.0 - Pneumonitis due to inhalation of food and vomit Plan: On ampicillin-sulbactam. Pulmonary toilet Bronchodilators (3) Esophageal obstruction due to food impaction: Status: Acute Code(s): T18.128A - Food in esophagus causing other injury, initial encounter; [id number] - Food entering into or through a natural orifice, initial encounter Plan: Removed on the by Dr. Branch MBSS performed on 01/10: With diagnosis of mild to moderate oropharyngeal phase dysphagia. Noted by poor bolus control with posterior loss disorganized tongue motion and prolonged mastication. Recommendation is for minced and moist textures and thin liquids. Recommendation is for outpatient GI referral. Patient to continue with soft bite sized food that is easy to chew. (4) Heart failure: Status: Acute Code(s): I50.9 - Heart failure, unspecified Plan: Acute HFpEF. Ordered an echo and it showed EF 60%. Shows mildly dilated RV with moderate RV systolic dysfunction. Chest x-ray appears to have more in the way of pulmonary vascular congestion. Creatinine is trending up so we will change the furosemide back to oral but will have it at 40 mg twice daily. Plan Dementia: Complicates care and recovery COPD: Patient really does not have much in way of wheezing but is on methylprednisolone VTE prophylaxis with enoxaparin Medications at Discharge Home Medications memantine 5 mg tablet 5 mg PO BID 05/22/23 mecobalamin (vitamin B12) 1,000 mcg chewable tablet 1,000 mcg PO DAILY 01/08/25 albuterol sulfate 1.25 mg/3 mL solution for nebulization 1.25 mg (3 mL) inhalation Q4H PRN shortness of breath or wheezing #90 mL 01/12/25 amoxicillin 875 mg-potassium clavulanate 125 mg tablet 1 tab PO BID 4 days #8 tabs 07/18/25 furosemide 40 mg tablet 40 mg PO DAILY 30 days #30 tabs 01/12/25 ipratropium 0.5 mg-albuterol 3 mg (2.5 mg base)/3 mL nebulization soln 3 ml inhalation .q6hwa 10 days #180 mL 01/12/25 Weight / BMI Weight Weight: 169 lb 12.095 oz Body Mass Index (BMI) 27.3 ABG / Lab / Microbiology Data 01/12/25 06:07 01/12/25 06:07 Laboratory: Laboratory Results - last 24 hr 01/11/25 10:08: Sodium 143, Potassium 3.6, Chloride 103, Carbon Dioxide 25.2, Anion Gap 15, BUN 17, Creatinine 1.03, Estim Creat Clear Calc 51.23, Est GFR (MDRD) Non-Af 71, BUN/Creatinine Ratio 16.2, Glucose 139 H, Calcium 9.4 01/12/25 06:07: WBC 7.0, RBC 4.21 L, Hgb 13.5, Hct 38.8 L, MCV 92.2, MCH 32.1 H, MCHC 34.8, RDW Std Deviation 43.2, RDW Coeff of Radha 12.8, Plt Count 199, MPV 10.8, Immature Gran % (Auto) 0.700, Neut % (Auto) 62.1, Lymph % (Auto) 28.6, Nash % (Auto) 6.7, Eos % (Auto) 1.6, Baso % (Auto) 0.3, Absolute Neuts (auto) 4.3, Absolute Lymphs (auto) 2.00, Nucleated RBC % 0, Sodium 143, Potassium 3.6, Chloride 106, Carbon Dioxide 26.6, Anion Gap 10, BUN 17, Creatinine 0.90, Estim Creat Clear Calc 58.63, Est GFR (MDRD) Non-Af 83, BUN/Creatinine Ratio 18.4, Glucose 92, Calcium 8.8 Microbiology: Microbiology 01/08/25 18:39 Blood Culture (Wb) - Left Forearm Blood Culture - Preliminary No growth in 48 hours. 01/08/25 18:39 Blood Culture (Wb) - Right Forearm Blood Culture - Preliminary No growth in 48 hours. 01/09/25 06:05 Sputum, Expectorated/Coughed Gram Stain - Final 01/09/25 06:05 Sputum, Expectorated/Coughed Respiratory Culture - Final Mixed normal respiratory lisa. No Streptococcus pneumoniae, beta-hemolytic Streptococcus or Staphylococcus aureus isolated. 01/08/25 21:05 Mucosa - Nasopharyngeal Respiratory Panel (PCR) - Final 01/09/25 06:05 Urine, Clean Catch Legionella Antigen - Final 01/09/25 06:05 Urine, Clean Catch Streptococcus pneumoniae Antigen (M - Final 01/08/25 23:30 Nasal Secretion MRSA (PCR) - Final 01/08/25 21:05 Mucosa - Nasopharyngeal SARS-CoV-2, Influenza & RSV (PCR) - Final D/C Instructions May resume sexual activity in: 10-14 days Weight Bearing Status: Weight bearing as tolerated Call your doctor if you observe: Fever of 101 or Higher, Shortness of breath, Dizziness, Swelling in the ankles, Chest pain, Increased palpitations (irregular heartbeat), Calf discomfort and Uncontrolled pain DC O2, CPAP, BIPAP Needs Home O2 Discharge instructions: Yes Type of respiratory needs?: Oxygen Oxygen frequency: Continuous Continuous oxygen liters per minute: 2, At rest, With Ambulation Oxygen liters per minute during Ambulation: 2 and With Sleeping Oxygen liters per minute when sleepin Discharge Plan Admission Admit Date/Time: 01/08/25 19:19 Primary Reason for Your Visit: Aspiration pneumonia, Hypoxia, Oropharyneal dysphagia Attending Provider: Teresa Ramirez Primary Care Provider: Praneeth Spaulding Consulting Providers: Jasbir Rivera; Clark Valentine Instructions Patient Instructions: Using Oxygen at Home, Traveling with Oxygen, Using an Oxygen Tank at Home, Dysphagia Diet- Managing Drinks, Dysphagia Diet- Managing Foods, Dysphagia Aspiration Tx Additional Instructions / Restrictions: ADDITIONAL DISCHARGE INSTRUCTIONS/PLAN OF CARE: #1. Aspiration pneumonia with esophageal obstruction secondary to food impaction complicated by concern for mild exacerbation of underlying heart failure: --During admission upon presentation had notable obstruction of the esophagus secondary to food impaction which was resolved with intervention. --Following this patient was continued on antibiotics initially IV for aspiration pneumonia eventually transitioned at discharge to oral Augmentin to complete duration of therapy. --Speech therapy was involved during his admission with concern for mild to moderate oropharyngeal dysphagia with recommendation for minced/moist textures of foods and allowance of thin liquids. --We strongly encouraged continued very soft bite sized foods very easy to chew at home. They have also recommended continued outpatient referral with gastroenterology which has been requested. We also strongly recommend continued outpatient speech therapy evaluation and treatment to assure this continues to improve to decrease risk of recurrence of aspiration pneumonia. --At discharge oxygenation assessment was performed and 2 L nasal cannula is required at both rest and activity and we strongly encouraged this to remain used until reevaluation by primary care physician and appropriately de-escalated to off. --Lasix therapy has been increased to 40 mg daily in week encourage follow-up basic metabolic panel at follow-up with primary care physician to have renal function reviewed to assure electrolytes and renal function remain appropriate. We recommend daily weight assessments and if increase of 5 lbs or greater please call primary care physician for potential increase or extra dose of lasix therapy. --Given the pneumonia we also have discharged on aerosol therapies and recommend these to be continued to be used to completion. Discharge Orders/Prescriptions Prescriptions: New albuterol sulfate 1.25 mg/3 mL solution for nebulization 1.25 mg inhalation Q4H PRN (Reason: shortness of breath or wheezing) Qty: 90 0RF ipratropium-albuterol 0.5 mg-3 mg(2.5 mg base)/3 mL Solution For Nebulization 3 ml inhalation .q6hwa 10 Days Qty: 180 0RF amoxicillin-pot clavulanate 875-125 mg tablet 1 tab PO BID 4 Days Qty: 8 0RF furosemide 40 mg Tablet 40 mg PO DAILY 30 Days Qty: 30 0RF Continued memantine 5 mg tablet 5 mg PO BID mecobalamin (vitamin B12) 1,000 mcg tablet,chewable 1,000 mcg PO DAILY Discontinued furosemide 20 mg tablet 20 mg PO DAILY Referrals / Follow Up: Praneeth Spaulding MD [Primary Care Provider] - Scot Bryant DO [Med Staff - Active Staff] - (Please follow-up and have evaluation for underlying oropharyngeal dysphagia w/ aspiration.) Disposition Disposition (needs filled in before D/C Order can be placed): Home Health Service
--- NOTE | 2025-01-12 10:23 | PCM.DC.SUM ---
Providers Date of Admission: 01/08/25 Date of Discharge: 01/12/25 Primary Care Physician: Dr. Praneeth Spaulding MD Reason For Visit: PNEUMONIA, ASPIRATION, HYPOXIA Diagnosis Discharge Diagnosis (1) Acute hypoxic respiratory failure: Status: Acute Code(s): J96.01 - Acute respiratory failure with hypoxia (2) Aspiration pneumonia: Status: Acute Code(s): J69.0 - Pneumonitis due to inhalation of food and vomit (3) Esophageal obstruction due to food impaction: Status: Acute Code(s): T18.128A - Food in esophagus causing other injury, initial encounter; [id number] - Food entering into or through a natural orifice, initial encounter (4) Heart failure: Status: Acute Code(s): I50.9 - Heart failure, unspecified Plan: DISCHARGE DIAGNOSES: #1. Acute hypoxic respiratory failure secondary to acute aspiration with as noted #4 with an esophageal obstruction secondary to food impaction complicated by aspiration pneumonia as well as #2 complicated by #5 #2. Acute heart failure preserved EF exacerbation #3. Acute COPD exacerbation, resolved #4. Mild to moderate oropharyngeal phase dysphagia #5. Pulmonary Fibrosis #6. Hypertension #7. Hyperlipidemia #8. Dementia unclear type with unclear memory impairment as well as unclear behavioral disturbance component Medications at Discharge Home Medications memantine 5 mg tablet 5 mg PO BID memory 05/22/23 mecobalamin (vitamin B12) 1,000 mcg chewable tablet 1,000 mcg PO DAILY vitamin 01/08/25 albuterol sulfate 1.25 mg/3 mL solution for nebulization 1.25 mg (3 mL) inhalation Q4H PRN shortness of breath or wheezing #90 mL 01/12/25 amoxicillin 875 mg-potassium clavulanate 125 mg tablet 1 tab PO BID 4 days #8 tabs 01/12/25 furosemide 40 mg tablet 40 mg PO DAILY 30 days #30 tabs 01/12/25 ipratropium 0.5 mg-albuterol 3 mg (2.5 mg base)/3 mL nebulization soln 3 ml inhalation .q6hwa 10 days #180 mL 01/12/25 Hospital Course Operations None Procedures 2-D Echocardiogram and EKG Summary of Care Provided Minutes Spent on Discharge: 35 Hospital Course: The patient is an 84 y/o M w/ PMHx: Dementia unclear type with unclear memory impairment as well as unclear behavioral disturbance component, HTN, HLD, COPD, Pulmonary fibrosis, Former tobacco use who presented to the [facility] ED on 01/08/2025 with onset fever, cough and dyspnea progressively worsening with significant thick yellowish-brownish sputum with recent episode of coughing and choking on his food unable to swallow after he had been trying to eat a turkey burger prompting eventual ED evaluation. In the ED patient was evaluated and food impaction was removed. Patient was noted to have 6 significant purulent sputum in the ED. Chest x-ray was obtained and was notable for a right middle lobe/lower lobe infiltrate concerning for aspiration component. Patient was admitted, initiated on IV Unasyn with continued oxygen supplementation with wean to 2 L eventually at discharge needed for both rest and ambulatory to maintain appropriate saturations. 01/08/2025 with patient was also maintained on aerosols and initially IV Solu-Medrol for concern for COPD exacerbation but that was de-escalated off. Echocardiogram was obtained with noted EF 60% with mildly dilated RV and moderate RV systolic dysfunction. Onset of some concerns that also pulmonary vascular congestion and additional etiology for his hypoxia with initial IV Lasix diuresis eventually transitioned to Lasix 40 mg daily with close monitoring of creatinine. Patient was evaluated by physical and Occupational Therapy as well as speech therapy with MBSS performed on 01/10 with noted diagnosis of mild to moderate oropharyngeal phase dysphagia with recommendation for minced/moist textures and thin liquids with plan for outpatient GI referral at discharge. 01/12/2025 given patient clinical improvement and also eagerness per family and patient patient discharged to home with recommended ongoing speech therapy outpatient, plan follow-up with gastroenterology, transition from IV Unasyn to oral Augmentin to complete therapy for aspiration pneumonia, continued aggressive aspiration precautions and food alteration per speech recommendations with discharge upon increase of Lasix to 40 mg daily with recommended follow-up BMP at reevaluation with primary care physician. Recommended patient discharged home with follow-up with primary care within 3 to 5 days. The hospitalist physician reviewed the oxygen testing, and this patient qualifies for the home equipment and portability. The patient is mobile in the home and the community. DAY OF DISCHARGE PROGRESS NOTE: Subjective: Patient without acute event overnight per self and nursing report. From discussions with nursing staff overnight patient with no acute events maintained on 2 L nasal cannula. Oxygenation assessment performed and patient required 2 L nasal cannula at rest and with activity to maintain appropriate saturations. Patient denies fever, chills, nausea, emesis, abdominal pain, chest pain or dyspnea. Patient agreeable to discharge to home. Patient will be discharged with follow-up with primary care physician within 3-5 days in addition to plan follow-up outpatient with gastroenterology for evaluation for mild to moderate oropharyngeal dysphagia. Objective: T97.4, heart rate 69, BP 137/75, respiratory rate 18, 84% on 2 L nasal cannula. Physical Examination: General: awake, alert, oriented x 3 and cooperative, seated upright in the PCU bedside chair, NAD. Skin: normal color, turgor, no icterus, cyanosis except for very stage ecchymoses, abrasions. HEENT: AT/NC, EOMI, PERRLA, MMM. Lungs: Mildly diminished, greater bases, right greater than left, appropriate effort, no appreciated significant rales, rhonchi or wheezing. Heart: Regular rate and rhythm; no gallop, rub audible. Abdomen: soft, overweight, NTTP, ND, hyperactive BS. Extremities: no cyanosis, no clubbing, no significant distal pitting edema, bilateral ankle trace edema noted. Neurological: patient awake, alert, oriented as noted, cognitive function impaired baseline with underlying dementia of unclear extent however appears intact upon questioning, pupils equally reactive to light and accommodation, cranial nerves II-XII grossly normal, moving all 4 extremities, strength moderately global decreased. Psychiatric: affect appears normal, no acute evidence of depressive or anxiety feelings. Assessment and Plan: Please see hospital summary above. Weight / BMI Weight Weight: 169 lb 12.095 oz Body Mass Index (BMI) 27.3 ABG / Lab / Microbiology Data 01/12/25 06:07 01/12/25 06:07 Laboratory: Laboratory Results - last 24 hr 01/12/25 06:07: WBC 7.0, RBC 4.21 L, Hgb 13.5, Hct 38.8 L, MCV 92.2, MCH 32.1 H, MCHC 34.8, RDW Std Deviation 43.2, RDW Coeff of Radha 12.8, Plt Count 199, MPV 10.8, Immature Gran % (Auto) 0.700, Neut % (Auto) 62.1, Lymph % (Auto) 28.6, [place] % (Auto) 6.7, Eos % (Auto) 1.6, Baso % (Auto) 0.3, Absolute Neuts (auto) 4.3, Absolute Lymphs (auto) 2.00, Nucleated RBC % 0, Sodium 143, Potassium 3.6, Chloride 106, Carbon Dioxide 26.6, Anion Gap 10, BUN 17, Creatinine 0.90, Estim Creat Clear Calc 58.63, Est GFR (MDRD) Non-Af 83, BUN/Creatinine Ratio 18.4, Glucose 92, Calcium 8.8 Microbiology: Microbiology 01/08/25 18:39 Blood Culture (Wb) - Left Forearm Blood Culture - Preliminary No growth in 48 hours. 01/08/25 18:39 Blood Culture (Wb) - Right Forearm Blood Culture - Preliminary No growth in 48 hours. 01/09/25 06:05 Sputum, Expectorated/Coughed Gram Stain - Final 01/09/25 06:05 Sputum, Expectorated/Coughed Respiratory Culture - Final Mixed normal respiratory lisa. No Streptococcus pneumoniae, beta-hemolytic Streptococcus or Staphylococcus aureus isolated. 01/08/25 21:05 Mucosa - Nasopharyngeal Respiratory Panel (PCR) - Final 01/09/25 06:05 Urine, Clean Catch Legionella Antigen - Final 01/09/25 06:05 Urine, Clean Catch Streptococcus pneumoniae Antigen (M - Final 01/08/25 23:30 Nasal Secretion MRSA (PCR) - Final 01/08/25 21:05 Mucosa - Nasopharyngeal SARS-CoV-2, Influenza & RSV (PCR) - Final D/C Instructions May resume sexual activity in: 10-14 days Weight Bearing Status: Weight bearing as tolerated Call your doctor if you observe: Fever of 101 or Higher, Shortness of breath, Dizziness, Swelling in the ankles, Chest pain, Increased palpitations (irregular heartbeat), Calf discomfort and Uncontrolled pain DC O2, CPAP, BIPAP Needs Home O2 Discharge instructions: Yes Type of respiratory needs?: Oxygen Oxygen frequency: Continuous Continuous oxygen liters per minute: 2, At rest, With Ambulation Oxygen liters per minute during Ambulation: 2 and With Sleeping Oxygen liters per minute when sleepin DC home with Oxygen: Yes Home O2 MD Review: I have reviewed the oxygen testing, and the patient qualifies for home oxygen equipment and portability. The patient is mobile in the home and the community. Meaningful Use Info Meaningful Use Meaningful Use Diagnoses (Choose all that apply): CHF CHF MARY/ARB ordered at discharge?: No Reason MARY/ARB not ordered?: Normal EF Documented LVEF (%): 60 Discharge Plan Admission Admit Date/Time: 01/08/25 19:19 Primary Reason for Your Visit: Aspiration pneumonia, Hypoxia, Oropharyneal dysphagia Attending Provider: Teresa Ramirez Primary Care Provider: Praneeth Spaulding Consulting Providers: Jasbir Rivera; Clark Valentine Instructions Patient Instructions: Using Oxygen at Home, Traveling with Oxygen, Using an Oxygen Tank at Home, Dysphagia Diet- Managing Drinks, Dysphagia Diet- Managing Foods, Dysphagia Aspiration Tx Additional Instructions / Restrictions: ADDITIONAL DISCHARGE INSTRUCTIONS/PLAN OF CARE: #1. Aspiration pneumonia with esophageal obstruction secondary to food impaction complicated by concern for mild exacerbation of underlying heart failure: --During admission upon presentation had notable obstruction of the esophagus secondary to food impaction which was resolved with intervention. --Following this patient was continued on antibiotics initially IV for aspiration pneumonia eventually transitioned at discharge to oral Augmentin to complete duration of therapy. --Speech therapy was involved during his admission with concern for mild to moderate oropharyngeal dysphagia with recommendation for minced/moist textures of foods and allowance of thin liquids. --We strongly encouraged continued very soft bite sized foods very easy to chew at home. They have also recommended continued outpatient referral with gastroenterology which has been requested. We also strongly recommend continued outpatient speech therapy evaluation and treatment to assure this continues to improve to decrease risk of recurrence of aspiration pneumonia. --At discharge oxygenation assessment was performed and 2 L nasal cannula is required at both rest and activity and we strongly encouraged this to remain used until reevaluation by primary care physician and appropriately de-escalated to off. --Lasix therapy has been increased to 40 mg daily in week encourage follow-up basic metabolic panel at follow-up with primary care physician to have renal function reviewed to assure electrolytes and renal function remain appropriate. We recommend daily weight assessments and if increase of 5 lbs or greater please call primary care physician for potential increase or extra dose of lasix therapy. --Given the pneumonia we also have discharged on aerosol therapies and recommend these to be continued to be used to completion. Discharge Orders/Prescriptions Prescriptions: New albuterol sulfate 1.25 mg/3 mL solution for nebulization 1.25 mg inhalation Q4H PRN (Reason: shortness of breath or wheezing) Qty: 90 0RF ipratropium-albuterol 0.5 mg-3 mg(2.5 mg base)/3 mL Solution For Nebulization 3 ml inhalation .q6hwa 10 Days Qty: 180 0RF amoxicillin-pot clavulanate 875-125 mg tablet 1 tab PO BID 4 Days Qty: 8 0RF furosemide 40 mg Tablet 40 mg PO DAILY 30 Days Qty: 30 0RF Continued memantine 5 mg tablet 5 mg PO BID mecobalamin (vitamin B12) 1,000 mcg tablet,chewable 1,000 mcg PO DAILY Discontinued furosemide 20 mg tablet 20 mg PO DAILY Referrals / Follow Up: Praneeth Spaulding MD [Primary Care Provider] - 01/16/25 9:00 am Scot Bryant DO [Med Staff - Active Staff] - 01/19/25 9:30 am (Please follow-up and have evaluation for underlying oropharyngeal dysphagia w/ aspiration. Appointment is with PHYSICAL THERAPY INSTRUCTOR Suzanne Beltran) Disposition Disposition (needs filled in before D/C Order can be placed): Home, Self Care Charges/Coding Visit Charges Inpatient E&M: 97744 Disch Hosp >30min
[2025-01-12] MEDS: 0.9% Saline Lock 10 ML Syringe IV (11:43)
--- NOTE | 2025-01-12 12:52 | CASEMGMT ---
Patient has order for discharge. Patient will need outpatient therapy at discharge as well as home oxygen and nebulizer. Scripts received. Referral sent to [facility], preferred provided, via [facility] with arrangements for equipment to be delivered to patient's room. RN CM in to discuss discharge with daughter Salina and patient. RN CM updated regarding home oxygen and nebulizer. RN CM discussed recommendation for outpatient speech therapy at discharge. Daughter would like to schedule herself at facility of choice. Patient and daughter deny further needs or concerns. Script for outpatient ST placed in discharge packet with [facility] information. Discharge plan updated.
[2025-01-12 14:25] VITALS: BP 132/71; PULSE 80; RESP 18; TEMP 36.7; O2SAT 93
== END 2025-01-12 14:35 | disposition home or self-care (01) | DRG 177 ==
LOC: ED 19:28 → PCU 19:46
PROVIDERS: Admitting Provider Internal Medicine; Emergency Provider Emergency Medicine; PCP Family Medicine; Referring Provider Emergency Medicine; Visit Provider Family Medicine
DX: J69.0 Pneumonitis due to inhalation of food and vomit (principal); J96.01 Acute respiratory failure with hypoxia; I50.31 Acute diastolic (congestive) heart failure; R47.01 Aphasia; J44.1 Chronic obstructive pulmonary disease with (acute) exacerbation; K22.2 Esophageal obstruction; T18.128A Food in esophagus causing other injury, initial encounter; I11.0 Hypertensive heart disease with heart failure; F03.90 Unspecified dementia, unspecified severity, without behavioral disturbance, psychotic disturbance, mood disturbance, and anxiety; J84.10 Pulmonary fibrosis, unspecified; E78.5 Hyperlipidemia, unspecified; R13.12 Dysphagia, oropharyngeal phase; W44.F3XA Food entering into or through a natural orifice, initial encounter; I49.1 Atrial premature depolarization; Z79.899 Other long term (current) drug therapy; Z87.891 Personal history of nicotine dependence
CPT/HCPCS: 36415; 71046; 74230; 80048; 83735; 85025; 87040; 87070; 87205; 87449; 87631; 87633; 87641; 92526; 92610; 92611; 93005; 93306; 94640; 94667; 94668; 97161; 97166; 99284; 99285; A4216; J0295; J1610; J1938; J2405

== ENCOUNTER → 2025-04-12 | Outpatient (CLI) | payer MEDICARE, SELFPAY ==
[2025-04-12 17:57] LABS: Hematocrit 43.7 % (40-54); Hemoglobin 14.6 g/dL (13.0-16.5); Immature Granulocytes Count 0.040 X10^3/uL (0.0-0.0); Mean Corp Hgb Conc 33.4 g/dL (32-36); Mean Corpuscular Volume 92.8 fL (80-94); Mean Platelet Vol. 11.5 fl (6.2-12.0); NRBC Flagged by Analyzer 0 % (0-5); Platelet Count 228 K/mm3 (150-450); RBC Distribution Width CV 13.3 % (11.6-14.6); RBC Distribution Width SD 45.1 fl (35.1-43.9); Red Blood Count 4.71 M/mm3 (4.6-6.2); White Blood Count 8.7 K/mm3 (4.4-11.0)
[2025-04-12 18:47] LABS: FOLATES,SERUM (FOLIC ACID) 3.86 ng/mL (4.60-34.80)
[2025-04-12 18:48] LABS: AST(SGOT) 26 U/L (<=37); Alanine Aminotransfer ALT/SGPT 38 U/L (<=46); Albumin, Serum 4.4 g/dL (3.4-4.8); Alkaline Phosphatase 83 U/L (40-129); Anion Gap 13 (5-15); BUN 14 mg/dL (4-19); BUN/Creat Ratio 14.0 RATIO (10-20); Calcium,Total 9.3 mg/dL (7.6-11.0); Carbon Dioxide 23.3 mmol/L (21.0-32.0); Chloride 102 mmol/L (98-108); Globulin 2.3 g/dL (2.2-4.2); Glucose 103 mg/dL (70-99); Potassium 4.2 mmol/L (3.3-5.1); Vitamin B12 1913 pg/mL (180-914)
== END | disposition home or self-care (01) ==
LOC: MFPLAB 16:09
PROVIDERS: PCP Family Medicine; Visit Provider Family Medicine
DX: R73.09 Other abnormal glucose (principal); F03.90 Unspecified dementia, unspecified severity, without behavioral disturbance, psychotic disturbance, mood disturbance, and anxiety
CPT/HCPCS: 36415; 80053; 82607; 82746; 83036; 84443; 85025